=== PATIENT | male | born 1955 | race Caucasian/White ===

== ENCOUNTER → 2020-06-13 | Outpatient (CLI) | payer MEDICARE ==
--- NOTE | 2020-06-13 12:15 | CT ---
EXAMINATION TYPE: CT abdomen pelvis wo con DATE OF EXAM: 06/13/2020 COMPARISON: None HISTORY: midline abdominal/pelvic pain CT DLP: 1275.5 mGycm Examination of the solid and hollow viscera is limited given the lack of contrast. FINDINGS: LUNG BASES: No evidence for nodule. No evidence for infiltrate. LIVER/GB: The gallbladder is unremarkable. No space-occupying hepatic lesion. PANCREAS: No pancreatic mass identified. No inflammatory process seen. SPLEEN: No evidence for splenomegaly. No intrasplenic lesions seen. ADRENALS: No adrenal nodules identified. No evidence for thickening. KIDNEYS: No evidence for renal mass. No nephrolithiasis. No hydronephrosis. BOWEL: Appendix has a normal appearance. No evidence of bowel obstruction. No inflammatory process. Lymph nodes: No evidence for adenopathy greater than 1 cm. Abdominal aorta: Atheromatous changes seen. No evidence for aneurysm. Genital organs: No significant abnormality. Other: Degenerative changes lumbar spine. IMPRESSION: NO ACUTE PROCESS SEEN TO ACCOUNT FOR THE PATIENT'S SYMPTOMS.
== END | disposition home or self-care (01) ==
LOC: RADCTMAIN 09:08
PROVIDERS: ATTEND Family Medicine
DX: R10.9 Unspecified abdominal pain (principal)
CPT/HCPCS: 82565; 84520; 74176; 36415; Q9967

== ENCOUNTER → 2021-05-21 | Outpatient (CLI) | payer MEDICARE ==
--- NOTE | 2021-05-21 11:37 | XR ---
EXAMINATION TYPE: XR KUB DATE OF EXAM: 05/21/2021 COMPARISON: X-ray dated 03/12/[address] dated 06/13/2020 INDICATION: Left-sided abdominal/flank pain. TECHNIQUE: Single AP view of the abdomen and pelvis. FINDINGS: No definite radiopaque renal calculi however the kidneys are partially obscured by the overlying jose l gas and fecal material, more on the right side. 3 mm left pelvic radiopaque shadow which could repr esent a pelvic phlebolith, appreciated previously, however tiny ureteric calculus cannot be excluded. Extensive arterial atherosclerotic calcifications. Sternotomy wire sutures. Left upper abdominal surg ical clips. Degenerative changes of the lower thoracic and lumbar spine. Osteophytosis of the acetabu lum bilaterally. IMPRESSION: No definite radiopaque urinary calculi identified. Suspected left pelvic phlebolith rather than urete christoph calculus. Further CT assessment can be considered if clinically required. Other incidental findin gs as described above.
== END | disposition home or self-care (01) ==
LOC: RADXRMAIN 10:32
PROVIDERS: ATTEND Nurse Practitioner Family
DX: R10.9 Unspecified abdominal pain (principal)
CPT/HCPCS: 74018

== ENCOUNTER 2021-10-31 14:16 | Emergency (ER) | payer MEDICARE ==
[2021-10-31 14:44] VITALS: BP 126/45; PULSE 58; RESP 20; TEMP 98
--- NOTE | 2021-10-31 16:49 | XR ---
EXAMINATION TYPE: XR foot complete RT DATE OF EXAM: 10/31/2021 4:37 PM INDICATION: Patient age:Male; 66 years old; Reason for study: pain; COMPARISON: 03/04/2021 TECHNIQUE: The right foot was examined in the AP, oblique, and lateral projections. FINDINGS: Postsurgical changes to the right foot including amputation at the third digit metatarsal p halangeal joint. There appears to be interval development of bony callus involving the fifth metatars al with deformity of the fifth metatarsal. Atherosclerosis of the arterial vasculature. No definitive osseous erosion to suggest osteomyelitis. IMPRESSION: 1. Interval amputation of the third digit at the metatarsophalangeal phalangeal joint. 2. Deformity of the fifth metatarsal with callus formation could represent posttraumatic changes lizette mary jane interval surgical intervention. Correlate with surgical history.
== END 2021-10-31 18:56 | disposition left against medical advice (07) ==
LOC: EC 14:16
DX: Z53.21 Procedure and treatment not carried out due to patient leaving prior to being seen by health care provider (principal); M79.671 Pain in right foot
CPT/HCPCS: 99499

== ENCOUNTER 2021-11-01 09:33 | Emergency (ER) | payer MEDICARE ==
[2021-11-01 09:47] VITALS: BP 162/79; PULSE 56; RESP 20; TEMP 98
[2021-11-01] MEDS ORDERED: HYDROcodone/APAP 7.5-325MG 1 EACH TAB PO ONE (11:26)
[2021-11-01 11:43] LABS: Basophils % (A) 1 %; Eosinophils # (A) 0.5 k/uL (0-0.7); Eosinophils % (A) 7 %; HCT 37.5 % (39.0-53.0); HGB 12.7 gm/dL (13.0-17.5); Lymphocytes # (A) 1.2 k/uL (1.0-4.8); Lymphocytes % (A) 15 %; MCHC 33.8 g/dL (31.0-37.0); MCV 85.7 fL (80.0-100.0); Mean Platelet Volume 7.2; Monocytes # (A) 0.5 k/uL (0-1.0); Monocytes % (A) 6 %; Neutrophils # (A) 5.6 k/uL (1.3-7.7); Neutrophils % (A) 70 %; Platelet Count 227 k/uL (150-450); RBC 4.38 m/uL (4.30-5.90); RDW 13.3 % (11.5-15.5)
--- NOTE | 2021-11-01 11:45 | ED ---
Extremity Problem HPI - General Chief complaint: Extremity Problem,Nontraumatic Stated complaint: Recheck/Rt Foot Wound Time Seen by Provider: 11/01/21 11:08 Source: patient Mode of arrival: ambulatory Limitations: no limitations - History of Present Illness Initial comments: Patient is a 66-year-old male with a past medical history of coronary artery di sease, hypertension, hyperlipidemia, chronic kidney disease stage III, type 2 diabetes mellitus, An amputation of the left great toe and second toe who presents to the emergency department with a chief complaint of toe pain. 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 Patient states after the procedure the infection traveled to his right fifth toe. Patient was treated by the wound clinic. Patient states he is still having pain in his right fifth toe. Is not taking anything for pain. Patient got an x-ray of the right foot in the emergency department yesterday however left prior to evaluation. Reports numbness in his entire foot due to his diabetes. Patient also has concern with a blister on his right great toe. Patient saw his primary care last week for this wound who provided wound care. Denies fever, chills, and other concerns. - Related Data Home Medications Medication Instructions Recorded Confirmed Aspirin EC [Ecotrin Low Dose] 81 mg PO DAILY 03/04/21 03/04/21 Cholecalciferol [Vitamin D3 (25 25 mcg PO DAILY 03/04/21 03/04/21 Mcg = 1000 Iu)] Ferrous Sulfate [Iron (65 MG 325 mg PO DAILY 03/04/21 03/04/21 Elemental)] Gabapentin [Neurontin] 300 mg PO TID 03/04/21 03/04/21 Hydroxychloroquine Sulfate 200 mg PO BID 03/04/21 03/04/21 [Plaquenil] Levothyroxine Sodium [Synthroid] 100 mcg PO DAILY 03/04/21 03/04/21 Simvastatin [Zocor] 20 mg PO DAILY 03/04/21 03/04/21 Previous Rx's Medication Instructions Recorded Apixaban [Eliquis] 5 mg PO BID #60 tab 03/10/21 Acetaminophen Tab [Tylenol] 650 mg PO Q6HR PRN tab 03/12/21 Cefuroxime [Ceftin] 250 mg PO BID 7 Days #14 tab 03/12/21 Famotidine [Pepcid] 20 mg PO BID #60 tablet 03/12/21 Sennosides [Senokot] 8.6 mg PO BID PRN tab 03/12/21 metroNIDAZOLE [Flagyl] 500 mg PO TID 7 Days #20 tab 03/12/21 Fluticasone Nasal Ponder [Flonase 1 spray EA NOSTRIL DAILY #1 gm 03/13/21 Nasal Ponder] Insulin Detemir (Levemir) [Levemir] 15 unit SQ BID #9 ml 03/13/21 Loratadine [Claritin] 5 mg PO DAILY 14 Days #14 tab 03/13/21 Losartan [Cozaar] 25 mg PO DAILY #30 tab 03/13/21 Meclizine [Antivert] 12.5 mg PO TID PRN 30 Days #90 03/13/21 tablet amLODIPine [Norvasc] 5 mg PO BID 30 Days #60 tab 03/13/21 hydrALAZINE HCL [Apresoline] 100 mg PO TID 30 Days #90 tab 03/13/21 metFORMIN HCL [Glucophage] 500 mg PO BID 30 Days #60 tab 03/13/21 Acetaminophen Tab [Tylenol Tab] 500 mg PO Q4H PRN #30 tablet 05/12/21 Allergies Allergy/AdvReac Type Severity Reaction Status Date / Time Penicillins Allergy Unknown Verified 11/01/21 09:47 Childhood Review of Systems ROS Statement: Those systems with pertinent positive or pertinent negative responses have been documented in the HPI. ROS Other: All systems not noted in ROS Statement are negative. Past Medical History Past Medical History: Diabetes Mellitus, Hyperlipidemia, Hypertension, Thyroid Disorder History of Any Multi-Drug Resistant Organisms: None Reported Past Surgical History: Coronary Bypass/CABG, Heart Catheterization With Stent Additional Past Surgical History / Comment(s): left great and second toe removal. bilat carpal tunnel. neck fusion 5-6-7. triple bypass Date of Last Stent Placement:: 02/2002 Past Psychological History: No Psychological Hx Reported Smoking Status: Former smoker Past Alcohol Use History: None Reported Past Drug Use History: None Reported General Exam Limitations: no limitations General appearance: alert, in no apparent distress Head exam: Present: atraumatic, normocephalic, normal inspection Respiratory exam: Present: normal lung sounds bilaterally. Absent: respiratory distress, wheezes, rales, rhonchi, stridor Cardiovascular Exam: Present: regular rate, normal rhythm, normal heart sounds. Absent: systolic murmur, diastolic murmur, rubs, gallop, clicks Extremities exam: Present: other (right foot: amputated third digit. No ev erythema, swelling, or warmth of the right foot including the digits. No obvious deformity of fith digit. No pain with palpation. Neurovascularly intact. Great toe has 2 mm popped blister laterally without celluliits) Course Vital Signs 11/01/21 09:45 Temperature 98 F Pulse Rate 56 L Respiratory 20 Rate Blood Pressure 162/79 O2 Sat by Pulse 99 Oximetry Medical Decision Making - Medical Decision Making This is a 66-year-old male who presents with pain in his right fifth toe. On physical exam there is amputation of the right third toe. No everythema, swelling, or warmth of the right foot including the digits. No obvious deformity of the fifth digit. No pain with palpation. Neurovascularly intact. Great toe has 2 mm popped blister laterally without surrounding cellulitis. Laboratory studies obtained. There is no leukocytosis. Right foot x-ray from yesterday was reviewed which shows deformity of the fifth metatarsal with callus formation which could represent posttraumatic changes versus interval surgical intervention. Results discussed with patient. Patient instructed to see his primary care for referral to the wound clinic for further evaluation and managem ent. Wound on right great toe was cleaned thoroughly and new dressing was placed before discharge. Dr. Akhtar is my attending. - Lab Data Result diagrams: 11/01/21 11:32 11/01/21 11:32 Lab Results 11/01/21 11/01/21 Range/Units 11:32 11:32 WBC 8.0 (3.8-10.6) k/uL RBC 4.38 (4.30-5.90) m/uL Hgb 12.7 L (13.0-17.5) gm/dL Hct 37.5 L (39.0-53.0) % MCV 85.7 (80.0-100.0) fL MCH 29.0 (25.0-35.0) pg MCHC 33.8 (31.0-37.0) g/dL RDW 13.3 (11.5-15.5) % Plt Count 227 (150-450) k/uL MPV 7.2 Neutrophils % 70 % Lymphocytes % 15 % Monocytes % 6 % Eosinophils % 7 % Basophils % 1 % Neutrophils # 5.6 (1.3-7.7) k/uL Lymphocytes # 1.2 (1.0-4.8) k/uL Monocytes # 0.5 (0-1.0) k/uL Eosinophils # 0.5 (0-0.7) k/uL Basophils # 0.0 (0-0.2) k/uL Sodium 141 (137-145) mmol/L Potassium 4.9 (3.5-5.1) mmol/L Chloride 105 (98-107) mmol/L Carbon Dioxide 28 (22-30) mmol/L Anion Gap 8 mmol/L BUN 27 H (9-20) mg/dL Creatinine 1.51 H (0.66-1.25) mg/dL Est GFR (CKD-EPI)AfAm 55 (>60 ml/min/1.73 sqM) Est GFR (CKD-EPI)NonAf 48 (>60 ml/min/1.73 sqM) Glucose 103 H (74-99) mg/dL Calcium 8.6 (8.4-10.2) mg/dL Total Bilirubin 0.6 (0.2-1.3) mg/dL AST 28 (17-59) U/L ALT 17 (4-49) U/L Alkaline Phosphatase 64 (38-126) U/L Total Protein 6.1 L (6.3-8.2) g/dL Albumin 3.9 (3.5-5.0) g/dL Disposition Clinical Impression: Toe pain, right, Amputated toe of right foot Disposition: HOME SELF-CARE Condition: Good Instructions (If sedation given, give patient instructions): Acute Wound Care (ED) Additional Instructions: Follow-up with primary care provider who can refer you to the wound clinic for further evaluation and management of pain in right fifth toe. Keep great toe wound clean and dry. Take Tylenol for pain. Return to the emergency department if you experience new, concerning, or worsening symptoms. Is patient prescribed a controlled substance at d/c from ED?: No Referrals: Gregorio Palomino MD [Primary Care Provider] - 1-2 days Time of Disposition: 12:06
[2021-11-01 12:04] LABS: Albumin 3.9 g/dL (3.5-5.0); Calcium 8.6 mg/dL (8.4-10.2); Potassium 4.9 mmol/L (3.5-5.1); Total Bilirubin 0.6 mg/dL (0.2-1.3); Total Protein 6.1 g/dL (6.3-8.2)
[2021-11-01] MEDS ORDERED: MUPIROCIN 2% OINT 22 GM TUBE TOPICAL SCH (12:30)
== END 2021-11-01 13:26 | disposition home or self-care (01) ==
LOC: EC 09:33
DX: M79.674 Pain in right toe(s) (principal); I12.0 Hypertensive chronic kidney disease with stage 5 chronic kidney disease or end stage renal disease; E11.22 Type 2 diabetes mellitus with diabetic chronic kidney disease; N18.30 Chronic kidney disease, stage 3 unspecified; I25.10 Atherosclerotic heart disease of native coronary artery without angina pectoris; E07.89 Other specified disorders of thyroid; Z89.421 Acquired absence of other right toe(s); Z79.82 Long term (current) use of aspirin; Z79.890 Hormone replacement therapy; Z79.4 Long term (current) use of insulin; Z79.84 Long term (current) use of oral hypoglycemic drugs; Z79.899 Other long term (current) drug therapy; Z88.0 Allergy status to penicillin; Z95.1 Presence of aortocoronary bypass graft; Z87.891 Personal history of nicotine dependence
CPT/HCPCS: 36415; 80053; 85025; 99283

== ENCOUNTER → 2022-06-01 | Outpatient (CLI) | payer MEDICARE ==
[2022-06-01 11:13] LABS: Albumin 3.3 g/dL (3.5-5.0)
[2022-06-01 21:18] LABS: Total Volume 24 Hour,Urine 2150 mL
== END | disposition home or self-care (01) ==
LOC: LABWHC1 09:29
PROVIDERS: ATTEND Family Medicine
DX: N18.30 Chronic kidney disease, stage 3 unspecified (principal)
CPT/HCPCS: 36415; 81050; 82040; 82575; 84156

== ENCOUNTER → 2022-06-01 | Outpatient (CLI) | payer SELFPAY ==
--- NOTE | 2022-06-01 13:52 | US ---
EXAMINATION TYPE: US kidneys/renal and bladder DATE OF EXAM: 06/01/2022 COMPARISON: CT CLINICAL HISTORY: N18.30 CHR KIDNEY DISEASE. CKD EXAM MEASUREMENTS: Right Kidney: 10.5 x 5.5 x 5.5 cm Left Kidney: 11.9 x 6.5 x 6.3 cm Right Kidney: No hydronephrosis or masses seen Left Kidney: No hydronephrosis or masses seen Bladder: Not distended, pt not given prep to fill bladder Bilateral Jets seen: No There is no evidence for hydronephrosis at this point in time. No nephrolithiasis is seen. No debbie s are identified. The urinary bladder is anechoic. Bilateral ureteral jets are seen. IMPRESSION: No discrete abnormality seen
== END | disposition home or self-care (01) ==
LOC: RADUSWWP 12:29
PROVIDERS: ATTEND Family Medicine
DX: N18.30 Chronic kidney disease, stage 3 unspecified (principal)
CPT/HCPCS: 76770

== ENCOUNTER 2023-01-26 06:52 | Day surgery (SDC) | payer MEDICARE ==
[2023-01-22 09:26] VITALS: BMI 37.3
[2023-01-26] MEDS: LACTATED RINGERS 1,000 ML IV SCH ×2 (07:20→08:16)
[2023-01-26 07:25] VITALS: TEMP 97
[2023-01-26 07:34] LABS: Glucose,Whole Blood 212 mg/dL (70-110)
[2023-01-26] MEDS ORDERED: LIDOCAINE 1% INJ 10MG/ML (20 ML MDV) ONE (08:17)
[2023-01-26] MEDS ORDERED: PROPOFOL 10 MG/ML 20 ML VIAL IV ONE (08:17)
--- NOTE | 2023-01-26 08:48 | P.PCN ---
Date of Procedure: 01/26/23 Procedure(s) Performed: Brief history: Patient is a pleasant 67-year-old white male scheduled for an elective upper endoscopy as well as colonoscopy as a part of evaluation of iron deficiency anemia and intermittent rectal bleeding Procedure performed: Esophagogastroduodenoscopy with biopsy Colonoscopy with biopsy Preoperative diagnosis: Iron deficiency anemia Intermittent rectal bleeding Anesthesia: [facility] [place] Procedure: After informed consent was obtained from the patient was brought into the endoscopy unit and IV sedation was administered by anesthesia under continuous monitoring. Initially upper endoscopy was done. The Olympus GF 160 video endoscope was inserted inserted into the mouth and esophagus intubated without any difficulty and was gradually advanced into the stomach and duodenum and carefully examined. The bulb and second part of the duodenum appeared normal. There was evidence of mild duodenitis in the duodenal bulb, biopsies were done from the second part of the duodenum to rule out celiac disease. The scope was then withdrawn into the stomach adequately insufflated with air and upon careful examination the antrum had mild gastritis and biopsies were done from this area. Mucosa of the body, cardia and fundus appeared normal. The scope was then withdrawn into the esophagus. There was a short segment of Wood's esophagus extending 3 mm proximal to the GE junction and this was biopsied. The GE junction was located at 40 cm to the incisors. It appeared regular with no erythema erosions or ulcerations. Rest of the esophagus appeared normal. Patient tolerated the procedure well. At this time the patient continued to remain sedation. Initial digital rectal examination was normal. Olympus CF 160 video colonoscope was then inserted into the rectum and gradually advanced to the cecum without any difficulty. Careful examination was performed as the scope was gradually being withdrawn. The prep was excellent. The cecum, ascending colon and mucosal erythema and friability with granularity consistent with colitis and biopsies were done from this area. Mucosa, transverse colon, descending colon, normal. Once again there was mucosal erythema friability and granularity involving the sigmoid colon and rectum appeared very 5 cm from the anal verge and multiple biopsies were done from this area.. Retroflexion was performed in the rectum and no lesions were noted. Patient tolerated the procedure well. Impression: 1. Upper endoscopy revealed mild antral gastritis, duodenitis and short segment Wood's esophagus 2. Colonoscopy revealed mild mucosal erythema with friability, blood granularity and spontaneous oozing involving the cecum, ascending colon and sigmoid colon and rectum all consistent with chronic colitis colitis status post multiple biopsies to evaluate for ulcerative colitis Recommendations: Findings of this examination were discussed with the patient as well as his family. He was advised to follow with the biopsy results. He will be seen in office in 2 weeks.
[2023-01-26 09:27] VITALS: BP 126/62; PULSE 57; RESP 16
== END 2023-01-26 09:31 | disposition home or self-care (01) ==
LOC: ORWHC2ENDO 06:52
PROVIDERS: ATTEND Internal Medicine Gastroenterology
DX: K29.50 Unspecified chronic gastritis without bleeding (principal); D50.9 Iron deficiency anemia, unspecified; K62.5 Hemorrhage of anus and rectum; K29.80 Duodenitis without bleeding; K22.70 Barrett's esophagus without dysplasia; K52.9 Noninfective gastroenteritis and colitis, unspecified; I10 Essential (primary) hypertension; I25.10 Atherosclerotic heart disease of native coronary artery without angina pectoris; E78.5 Hyperlipidemia, unspecified; E11.9 Type 2 diabetes mellitus without complications; E07.9 Disorder of thyroid, unspecified; G40.909 Epilepsy, unspecified, not intractable, without status epilepticus; Z79.899 Other long term (current) drug therapy; Z79.82 Long term (current) use of aspirin; Z88.2 Allergy status to sulfonamides; Z79.890 Hormone replacement therapy
CPT/HCPCS: 88305; 88313; 45380; 43239; J2001; J2704

== ENCOUNTER 2023-03-17 10:44 | Inpatient (IN) | payer MEDICARE ==
[2023-03-17] MEDS ORDERED: VANCOMYCIN IV PER PHARMACY 1 EACH MISC MISCELLANE PRN (11:23)
--- NOTE | 2023-03-17 11:46 | ED ---
Extremity Problem HPI - General Chief complaint: Extremity Problem,Nontraumatic Stated complaint: L Foot Wood Time Seen by Provider: 03/17/23 11:13 Source: patient, RN notes reviewed Mode of arrival: ambulatory Limitations: no limitations - History of Present Illness Initial comments: 67-year-old male presents emergency department chief complaint of left foot infection. Patient was sent in by wound center Dr. Garcia. Patient states she has had a prior toe amputation states that there is a sore underneath the ball of his foot with a possible bone exposure. Patient states he is not on any current antibiotics he was sent in for IV antibiotic treatment and further evaluation. He is a known diabetic. - Related Data Home Medications Medication Instructions Recorded Confirmed Aspirin EC [Ecotrin Low Dose] 81 mg PO DAILY 03/04/21 03/17/23 Ferrous Sulfate [Iron (65 MG 325 mg PO DAILY 03/04/21 03/17/23 Elemental)] Gabapentin [Neurontin] 300 mg PO TID 03/04/21 03/17/23 Hydroxychloroquine Sulfate 200 mg PO BID 03/04/21 03/17/23 [Plaquenil] Levothyroxine Sodium [Synthroid] 100 mcg PO DAILY 03/04/21 03/17/23 Simvastatin [Zocor] 20 mg PO DAILY 03/04/21 03/17/23 Insulin Aspart Prot/Insuln Asp 70 unit SQ HS 01/22/23 03/17/23 [Novolog MIX 70-30 Flexpen] Warfarin [Coumadin] 7.5 mg PO SUTUWETHSA 01/22/23 03/17/23 carvediloL [Coreg] 6.25 mg PO BID 01/22/23 03/17/23 Acetaminophen Tab [Tylenol Tab] 500 - 1,000 mg PO Q4H PRN 03/17/23 03/17/23 Balsalazide Disodium [Colazal] 2,250 mg PO TID 03/17/23 03/17/23 Loratadine [Claritin] 10 mg PO DAILY 03/17/23 03/17/23 Magnesium Oxide [Magox 400] 400 mg PO DAILY 03/17/23 03/17/23 Testosterone Cypionate 200 mg IM Q28D 03/17/23 03/17/23 [Depo-Testosterone] Warfarin [Coumadin] 10 mg PO MOFR 03/17/23 03/17/23 Previous Rx's Medication Instructions Recorded Famotidine [Pepcid] 20 mg PO BID #60 tablet 03/12/21 Sennosides [Senokot] 8.6 mg PO BID PRN tab 03/12/21 Losartan [Cozaar] 25 mg PO DAILY #30 tab 03/13/21 Meclizine [Antivert] 12.5 mg PO TID PRN 30 Days #90 03/13/21 tablet amLODIPine [Norvasc] 5 mg PO BID 30 Days #60 tab 03/13/21 Allergies Allergy/AdvReac Type Severity Reaction Status Date / Time Penicillins Allergy Unknown Verified 03/17/23 12:48 Childhood Review of Systems ROS Statement: Those systems with pertinent positive or pertinent negative responses have been documented in the HPI. ROS Other: All systems not noted in ROS Statement are negative. Past Medical History Past Medical History: Diabetes Mellitus, Hyperlipidemia, Hypertension, Thyroid Disorder History of Any Multi-Drug Resistant Organisms: None Reported Past Surgical History: Coronary Bypass/CABG, Heart Catheterization With Stent Additional Past Surgical History / Comment(s): left great and second toe removal. bilat carpal tunnel. neck fusion 5-6-7. triple bypass Past Anesthesia/Blood Transfusion Reactions: No Reported Reaction Additional Past Anesthesia/Blood Transfusion Reaction / Comment(s): no blood transfusion Date of Last Stent Placement:: 02/2002 Past Psychological History: No Psychological Hx Reported Smoking Status: Former smoker Past Alcohol Use History: None Reported Past Drug Use History: None Reported General Exam Limitations: no limitations General appearance: alert, in no apparent distress Head exam: Present: atraumatic, normocephalic, normal inspection Neck exam: Present: normal inspection, full ROM. Absent: tenderness, meningismus, lymphadenopathy Respiratory exam: Present: normal lung sounds bilaterally. Absent: respiratory distress, wheezes, rales, rhonchi, stridor Cardiovascular Exam: Present: regular rate, normal rhythm, normal heart sounds. Absent: systolic murmur, diastolic murmur, rubs, gallop, clicks Extremities exam: Present: other (Left foot there is a prior amputation there is an open sore just proximal to where first digit was, there is erythema there is a lateral foot ulceration also.) Course Vital Signs 03/17/23 10:47 Temperature 98.5 F Pulse Rate 65 Respiratory 18 Rate Blood Pressure 171/93 O2 Sat by Pulse 100 Oximetry Medical Decision Making - Medical Decision Making Was pt. sent in by a medical professional or institution (ALESSIA Montemayor, [employer], urgent care, hospital, or senior care...) When possible be specific @ -Wound care physician Did you speak to anyone other than the patient for history (EMS, parent, family, police, friend...)? What history was obtained from this source @ -No Did you review nursing and triage notes (agree or disagree)? Why? @ -I reviewed and agree with nursing and triage notes Were old charts reviewed (outside hosp., previous admission, EMS record, old EKG, old radiological studies, urgent care reports/EKG's, senior care records)? Report findings @ -No old charts were reviewed Differential Diagnosis (chest pain, altered mental status, abdominal pain women, abdominal pain men, vaginal bleeding, weakness, fever, dyspnea, syncope, headache, dizziness, GI bleed, back pain, seizure, CVA, palpatations, mental health, musculoskeletal)? @ -Diabetic foot ulcer, cellulitis, osteomyelitis EKG interpreted by me (3pts min.). @ -None X-rays interpreted by me (1pt min.). @ -[X-ray of the foot showing postsurgical changes no evidence of osteomyelitis CT interpreted by me (1pt min.). @ -None done U/S interpreted by me (1pt. min.). @ -None done What testing was considered but not performed or refused? (CT, X-rays, U/S, labs)? Why? @ -None What meds were considered but not given or refused? Why? @ -None Did you discuss the management of the patient with other professionals (professionals i.e. ALESSIA Montemayor, [employer] WORK[employer], lab, RT, psych nurse, social media campaign manager, neonatal intensive care nurse, teacher, public health service officer, senior case manager)? Give summary @ -[EMH for admission with consult to wound care and infectious disease Was smoking cessation discussed for >3mins.? @ -No Was critical care preformed (if so, how long)? @ -No Were there social determinants of health that impacted care today? How? (Homelessness, low income, unemployed, alcoholism, drug addiction, transportation, low edu. Level, literacy, decrease access to med. care, detention, rehab)? @ -No Was there de-escalation of care discussed even if they declined (Discuss DNR or withdrawal of care, Hospice)? DNR status @ -No What co-morbidities impacted this encounter? (DM, HTN, Smoking, COPD, CAD, Cancer, CVA, ARF, Chemo, Hep., AIDS, mental health diagnosis, sleep apnea, morbid obesity)? @ -None Was patient admitted / discharged? Hospital course, mention meds given and route, prescriptions, significant lab abnormalities, going to OR and other pertinent info. @ -[Admitted patient be admitted for diabetic foot ulcer patient was sent in by wound center. Patient started on IV antibiotics there is no acute changes on x- ray. Undiagnosed new problem with uncertain prognosis? @ -No Drug Therapy requiring intensive monitoring for toxicity (Heparin, Nitro, Insulin, Cardizem)? @ -No Were any procedures done? @ -No Diagnosis/symptom? @ -Diabetic foot ulcer t Acute, or Chronic, or Acute on Chronic? @ -Acute Uncomplicated (without systemic symptoms) or Complicated (systemic symptoms)? @ -[Uncomplicated Side effects of treatment? @ -No Exacerbation, Progression, or Severe Exacerbation? @ -No Poses a threat to life or bodily function? How? (Chest pain, [place], [place], pneumonia, PE, COPD, DKA, ARF, appy, cholecystitis, CVA, Diverticulitis, Homicidal, Suicidal, threat to staff... and all critical care pts) @ -Yes low likelihood, infection - Lab Data Result diagrams: 03/17/23 11:44 03/17/23 11:44 Lab Results 03/17/23 03/17/23 03/17/23 Range/Units 11:44 11:44 11:44 WBC 11.3 H (3.8-10.6) k/uL RBC 4.50 (4.30-5.90) m/uL Hgb 13.5 (13.0-17.5) gm/dL Hct 40.1 (39.0-53.0) % MCV 89.2 (80.0-100.0) fL MCH 29.9 (25.0-35.0) pg MCHC 33.6 (31.0-37.0) g/dL RDW 13.2 (11.5-15.5) % Plt Count 229 (150-450) k/uL MPV 8.6 Neutrophils % 85 % Lymphocytes % 5 % Monocytes % 5 % Eosinophils % 3 % Basophils % 1 % Neutrophils # 9.7 H (1.3-7.7) k/uL Lymphocytes # 0.6 L (1.0-4.8) k/uL Monocytes # 0.6 (0-1.0) k/uL Eosinophils # 0.3 (0-0.7) k/uL Basophils # 0.1 (0-0.2) k/uL Sodium 134 L (137-145) mmol/L Potassium 4.1 (3.5-5.1) mmol/L Chloride 99 (98-107) mmol/L Carbon Dioxide 25 (22-30) mmol/L Anion Gap 10 mmol/L BUN 52 H (9-20) mg/dL Creatinine 2.03 H (0.66-1.25) mg/dL Est GFR (CKD-EPI)AfAm 38 (>60 ml/min/1.73 sqM) Est GFR (CKD-EPI)NonAf 33 (>60 ml/min/1.73 sqM) Glucose 296 H (74-99) mg/dL Plasma Lactic Acid Brigido 1.5 (0.7-2.0) mmol/L Calcium 8.6 (8.4-10.2) mg/dL Total Bilirubin 1.4 H (0.2-1.3) mg/dL AST 30 (17-59) U/L ALT 24 (4-49) U/L Alkaline Phosphatase 66 (38-126) U/L C-Reactive Protein 4.5 H (<1.0) mg/dL Total Protein 5.7 L (6.3-8.2) g/dL Albumin 3.5 (3.5-5.0) g/dL Disposition Clinical Impression: Diabetic foot ulcer Disposition: ADMITTED IP TO THIS [facility] Condition: Fair Time of Disposition: 12:02
[2023-03-17] MEDS: VANCOMYCIN 1,750 MG in SODIUM CHLORIDE 0.9% 500 ML 500 ML IVPB STA (11:56)
[2023-03-17 12:02] LABS: Basophils # (A) 0.1 k/uL (0-0.2); Basophils % (A) 1 %; Eosinophils # (A) 0.3 k/uL (0-0.7); Eosinophils % (A) 3 %; HCT 40.1 % (39.0-53.0); HGB 13.5 gm/dL (13.0-17.5); Lymphocytes # (A) 0.6 k/uL (1.0-4.8); Lymphocytes % (A) 5 %; MCH 29.9 pg (25.0-35.0); MCHC 33.6 g/dL (31.0-37.0); MCV 89.2 fL (80.0-100.0); Mean Platelet Volume 8.6; Monocytes # (A) 0.6 k/uL (0-1.0); Monocytes % (A) 5 %; Neutrophils # (A) 9.7 k/uL (1.3-7.7); Neutrophils % (A) 85 %; Platelet Count 229 k/uL (150-450); RDW 13.2 % (11.5-15.5); WBC 11.3 k/uL (3.8-10.6)
--- NOTE | 2023-03-17 12:05 | XR ---
EXAMINATION TYPE: XR foot complete 3 views LT DATE OF EXAM: 03/17/2023 Comparison: None Clinical History: 67-year-old male infection at great toe Findings: Prior great toe amputation. Old healed fracture deformity third metatarsal neck. Old resection head a nd neck of the second metatarsal. There is a at the great toe amputation stump. No safia lytic destru ction is clearly identified this time. Vascular calcifications are present throughout. Dorsal degener ative spurring in the mid foot. No acute fracture or dislocation. Impression: Previous great toe amputation with a a soft tissue wound at the amputation stump. No overt findings o f a contiguous osteomyelitis/bony destruction at this time. If persistent clinical concern, radiograp hic follow-up or MRI can be performed.
[2023-03-17 12:17] LABS: ALT 24 U/L (4-49); AST 30 U/L (17-59); African American GFR (CKD) 38 (>60 ml/min/1.73 sqM); Alkaline Phosphatase 66 U/L (38-126); Non-African American GFR(CKD) 33 (>60 ml/min/1.73 sqM)
[2023-03-17 12:29] LABS: Albumin 3.5 g/dL (3.5-5.0); Anion Gap 10 mmol/L; Blood Urea Nitrogen 52 mg/dL (9-20); C Reactive Protein 4.5 mg/dL (<1.0); Calcium 8.6 mg/dL (8.4-10.2); Carbon Dioxide 25 mmol/L (22-30); Chloride 99 mmol/L (98-107); Glucose 296 mg/dL (74-99); Potassium 4.1 mmol/L (3.5-5.1); Sodium 134 mmol/L (137-145); Total Bilirubin 1.4 mg/dL (0.2-1.3); Total Protein 5.7 g/dL (6.3-8.2)
[2023-03-17] MEDS ORDERED: ACETAMINOPHEN TAB 325 MG TAB PO PRN (12:38)
[2023-03-17] MEDS ORDERED: ONDANSETRON 4 MG/2 ML VIAL IVP PRN (12:38)
[2023-03-17] MEDS ORDERED: NALOXONE 0.4 MG/ML 1 ML VIAL IV PRN (12:38)
[2023-03-17 17:12] LABS: Glucose,Whole Blood 311 mg/dL (70-110)
[2023-03-17 19:31] LABS: Erythrocyte Sedimentation Rate 29 mm/Hr (0-20)
[2023-03-17] MEDS ORDERED: SENNOSIDES 8.6 MG TAB PO PRN (23:28)
--- NOTE | 2023-03-17 23:59 | P.HPIM ---
History of Present Illness H&P Date: 03/17/23 Chief Complaint: Foot ulcer Patient is a 67-year-old male with a past medical history of coronary artery disease status post CABG, and stent placement, hypertension, diabetes type 2 insulin-dependent, hypothyroidism and prior history of compression of the right middle toe presents to ER with the complaints of left foot ulcer below the great toe. Patient does have history of peripheral neuropathy. Patient denies any purulent discharge. No fever no chills. No chest pain or shortness of breath. No nausea vomiting abdominal pain or diarrhea X-ray of the foot showed previous great toe amputation with soft tissue wound at the amputation stump. No overt findings of contiguous osteomyelitis or bony destruction at this time. Laboratory data showed WBC 11.3, hemoglobin 13.5 and platelets 229 Sodium 134 potassium 4.1 chloride 99 bicarb is 25 BUN 52 and creatinine 2.03 Blood sugar 296 and CRP 4.5. Review of Systems Constitutional: Patient denies any fever or chills . no Generalized weakness. Abdomen: Patient denied any nausea or vomiting or abd. pain Cardiovascular: Patient denies any chest pain or short of breath no palpitations. Respiratory: patient denied any cough . no sputum production. No shortness of breath Neurologic: Patient denied any numbness or tingling or headache. Musculoskeletal: Patient denies any complaints of joint swelling or deformity. Left foot ulcer Skin: Negative Psychiatric: Negative Endocrine: No heat or cold intolerance. No recent weight gain. Genitourinary: No dysuria or hematuria. All other 14 point ROS negative except the above Past Medical History Past Medical History: Diabetes Mellitus, Hyperlipidemia, Hypertension, Thyroid Disorder History of Any Multi-Drug Resistant Organisms: None Reported Past Surgical History: Coronary Bypass/CABG, Heart Catheterization With Stent Additional Past Surgical History / Comment(s): left great and second toe removal. bilat carpal tunnel. neck fusion 5-6-7. triple bypass Past Anesthesia/Blood Transfusion Reactions: No Reported Reaction Additional Past Anesthesia/Blood Transfusion Reaction / Comment(s): no blood transfusion Date of Last Stent Placement:: 02/2002 Past Psychological History: No Psychological Hx Reported Smoking Status: Former smoker Past Alcohol Use History: None Reported Past Drug Use History: None Reported Medications and Allergies Home Medications Medication Instructions Recorded Confirmed Type Aspirin EC [Ecotrin Low Dose] 81 mg PO DAILY 03/04/21 03/17/23 History Ferrous Sulfate [Iron (65 MG 325 mg PO DAILY 03/04/21 03/17/23 History Elemental)] Gabapentin [Neurontin] 300 mg PO TID 03/04/21 03/17/23 History Hydroxychloroquine Sulfate 200 mg PO BID 03/04/21 03/17/23 History [Plaquenil] Levothyroxine Sodium [Synthroid] 100 mcg PO DAILY 03/04/21 03/17/23 History Simvastatin [Zocor] 20 mg PO DAILY 03/04/21 03/17/23 History Famotidine [Pepcid] 20 mg PO BID #60 tablet 03/12/21 03/17/23 Rx Sennosides [Senokot] 8.6 mg PO BID PRN tab 03/12/21 03/17/23 Rx Losartan [Cozaar] 25 mg PO DAILY #30 tab 03/13/21 03/17/23 Rx Meclizine [Antivert] 12.5 mg PO TID PRN 30 Days #90 03/13/21 03/17/23 Rx tablet amLODIPine [Norvasc] 5 mg PO BID 30 Days #60 tab 03/13/21 03/17/23 Rx Insulin Aspart Prot/Insuln Asp 70 unit SQ HS 01/22/23 03/17/23 History [Novolog MIX 70-30 Flexpen] Warfarin [Coumadin] 7.5 mg PO SUTUWETHSA 01/22/23 03/17/23 History carvediloL [Coreg] 6.25 mg PO BID 01/22/23 03/17/23 History Acetaminophen Tab [Tylenol Tab] 500 - 1,000 mg PO Q4H PRN 03/17/23 03/17/23 History Balsalazide Disodium [Colazal] 2,250 mg PO TID 03/17/23 03/17/23 History Loratadine [Claritin] 10 mg PO DAILY 03/17/23 03/17/23 History Magnesium Oxide [Magox 400] 400 mg PO DAILY 03/17/23 03/17/23 History Testosterone Cypionate 200 mg IM Q28D 03/17/23 03/17/23 History [Depo-Testosterone] Warfarin [Coumadin] 10 mg PO MOFR 03/17/23 03/17/23 History Allergies Allergy/AdvReac Type Severity Reaction Status Date / Time Penicillins Allergy Unknown Verified 03/17/23 12:48 Childhood Physical Exam Vitals: Vital Signs Temp Pulse Resp BP Pulse Ox 03/17/23 10:47 98.5 F 65 18 171/93 100 Intake and Output 03/16/23 03/17/23 03/17/23 22:59 06:59 14:59 Other: Weight 111.13 kg PHYSICAL EXAMINATION: Patient is lying in the bed comfortably, no acute distress, awake alert and oriented.. HEENT: Normocephalic. Neck is supple. Pupils reactive. Nostrils clear. Oral cavity is moist. Neck reveals no JVD, carotid bruits, or thyromegaly. CHEST EXAMINATION: Trachea is central. Symmetrical expansion. Lung delgado clear to auscultation and percussion. CARDIAC: Normal S1, S2 with no gallops. No murmurs ABDOMEN: Soft. Bowel sounds present. Nontender. No organomegaly. No abdominal bruits. Extremities: reveal no edema. No clubbing or cyanosis Neurologically awake, alert, oriented x3 with well-coordinated movements. No focal deficits noted Skin: No rash or skin lesions. Left foot ulcer on the plantar aspect of the great toe amputation site. Granulation tissue with surrounding skin slough. Psychiatric: Coperative. Nonsuicidal, Musculoskeletal: No joint swelling or deformity. Normal range of motion. Results CBC & Chem 7: 03/17/23 11:44 03/17/23 11:44 Labs: Abnormal Lab Results - Last 24 Hours (Table) 03/17/23 03/17/23 Range/Units 11:44 11:44 WBC 11.3 H (3.8-10.6) k/uL Neutrophils # 9.7 H (1.3-7.7) k/uL Lymphocytes # 0.6 L (1.0-4.8) k/uL Sodium 134 L (137-145) mmol/L BUN 52 H (9-20) mg/dL Creatinine 2.03 H (0.66-1.25) mg/dL Glucose 296 H (74-99) mg/dL Total Bilirubin 1.4 H (0.2-1.3) mg/dL C-Reactive Protein 4.5 H (<1.0) mg/dL Total Protein 5.7 L (6.3-8.2) g/dL Thrombosis Risk Factor Assmnt - DVT/VTE Prophylaxis DVT/VTE Prophylaxis: Pharmacologic Prophylaxis ordered Assessment and Plan Assessment: Left diabetic foot ulcer on the plantar surface at the amputation of the great toe site Acute kidney injury with prior history of CKD stage III. Baseline creatinine level 1.3-1.8 creatinine on admission 2.03. 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 Coronary artery disease with history of CABG and stent placement Long-term anticoagulation with Coumadin etiology not known. History of ulcerative colitis Hypothyroidism Medication noncompliance History of constipation Hyperlipidemia GI prophylaxis Plan: Patient will be continued on IV hydration with normal saline. Started on antibiotics vancomycin. Wound care and ID consult for further evaluation. Start back on home blood pressure medications and titrate as needed. Continue with insulin regimen and sliding scale was added. Current home medications Follow-up culture reports. Continue with pain management. Prognosis is guarded. Time with Patient: Greater than 30
[2023-03-18] MEDS: carvediloL 6.25 MG TAB PO SCH (01:08)
[2023-03-18] MEDS: amLODIPine 5 MG TAB PO SCH (01:08)
[2023-03-18] MEDS: INSULN ASP PRT/INSULIN ASPART 100 UNIT/ML 10 ML VIAL SQ SCH ×2 (01:56→19:49)
[2023-03-18 02:01] LABS: Prothrombin Time 129.5 sec (10.0-12.5)
[2023-03-18 02:04] LABS: INR >10.0 (<1.2)
[2023-03-18] MEDS: WARFARIN 7.5 MG TAB PO SCH (04:28)
[2023-03-18] MEDS: PHYTONADIONE 5 MG in SODIUM CHLORIDE 0.9% 50 ML IVPB STA (04:52)
[2023-03-18 06:32] LABS: African American GFR (CKD) 38 (>60 ml/min/1.73 sqM); Anion Gap 5 mmol/L; Blood Urea Nitrogen 46 mg/dL (9-20); Calcium 8.5 mg/dL (8.4-10.2); Carbon Dioxide 32 mmol/L (22-30); Chloride 100 mmol/L (98-107); Non-African American GFR(CKD) 33 (>60 ml/min/1.73 sqM); Potassium 3.6 mmol/L (3.5-5.1); Sodium 137 mmol/L (137-145)
[2023-03-18 06:43] LABS: Glucose 36 mg/dL (74-99)
[2023-03-18 06:47] LABS: Glucose,Whole Blood 42 mg/dL (70-110)
[2023-03-18] MEDS: INSULIN ASPART (NovoLOG) 100 UNIT/ML VIAL SQ SCH (06:51)
[2023-03-18] MEDS: DEXTROSE 50% SYRINGE 50 ML IVP PRN (06:52)
[2023-03-18 07:10] LABS: Glucose,Whole Blood 105 mg/dL (70-110)
[2023-03-18] MEDS ORDERED: VANCOMYCIN 1,750 MG in SODIUM CHLORIDE 0.9% 500 ML 500 ML IVPB SCH (08:00)
[2023-03-18] MEDS: GABAPENTIN 300 MG CAP PO SCH (08:16)
[2023-03-18] MEDS: ATORVASTATIN 10 MG TAB PO SCH (08:16)
[2023-03-18] MEDS: FAMOTIDINE 20 MG TAB PO SCH (08:16)
[2023-03-18] MEDS: BALSALAZIDE DISODIUM 750 MG CAPSULE PO SCH (08:16)
[2023-03-18] MEDS: VANCOMYCIN 1,750 MG in SODIUM CHLORIDE 0.9% 500 ML 500 ML IVPB SCH (08:16)
[2023-03-18] MEDS: LEVOTHYROXINE 100 MCG TAB PO SCH (08:16)
[2023-03-18] MEDS: HYDROXYCHLOROQUINE SULFATE 200 MG TAB PO SCH (08:17)
[2023-03-18 09:31] LABS: HCT 35.8 % (39.6-50.0); MCH 29.3 pg (27.0-32.0); MCHC 33.5 g/dL (32.0-37.0); MCV 87.5 FL (80.0-97.0); Mean Platelet Volume 12.1 FL (9.5-12.2); NRBC Per 100 WBC 0 X 10*3/uL (0.00-0.01); Platelet Count 194 X 10*3/uL (140-440); RBC 4.09 X 10*6/uL (4.40-5.60); RDW 12.6 % (11.5-14.5); WBC 10.79 X 10*3/uL (4.50-10.00)
[2023-03-18 09:32] LABS: Basophils # (A) 0.04 X 10*3/uL (0.00-0.10); Basophils % (A) 0.4 %; Eosinophils # (A) 0.39 X 10*3/uL (0.04-0.35); Eosinophils % (A) 3.6 %; Lymphocytes # (A) 0.63 X 10*3/uL (0.90-5.00); Lymphocytes % (A) 5.8 %; Monocytes # (A) 0.94 X 10*3/uL (0.20-1.00); Monocytes % (A) 8.7 %; Neutrophils % (A) 80.7 %
[2023-03-18 09:52] LABS: INR 6.05 sec (0.93-1.11); Prothrombin Time 58.1 sec (9.9-11.9)
[2023-03-18 11:18] LABS: Glucose,Whole Blood 28 mg/dL (70-110)
[2023-03-18] MEDS: CEFEPIME 2 GM in SODIUM CHLORIDE 0.9% 100 ML IVPB SCH (11:27)
[2023-03-18 11:40] LABS: Glucose,Whole Blood 117 mg/dL (70-110)
[2023-03-18] MEDS: DEXTROSE 5%-0.9% NACL 1,000 ML IV SCH (12:10)
[2023-03-18 13:07] LABS: Glucose,Whole Blood 78 mg/dL (70-110)
[2023-03-18 13:58] LABS: Glucose,Whole Blood 69 mg/dL (70-110)
[2023-03-18] MEDS: HYDROcodone/APAP 5-325MG 1 EACH TAB PO PRN (15:28)
[2023-03-18 15:44] LABS: Glucose,Whole Blood 123 mg/dL (70-110)
[2023-03-18 16:55] LABS: Glucose,Whole Blood 99 mg/dL (70-110)
[2023-03-18] MEDS: WARFARIN 0.5 MG TAB PO ONE (18:21)
--- NOTE | 2023-03-18 18:47 | CT ---
EXAMINATION TYPE: CT brain wo con DATE OF EXAM: 03/18/2023 COMPARISON: 05/12/2021 INDICATION: Rule out brain bleed, high INR, bloody sclera of rt eye. DLP: 1169.4 mGycm, Automated exposure control for dose reduction was used. CONTRAST: None CT of the brain is performed utilizing 3 mm thick sections through the posterior fossa and 3 mm thick sections through the remaining calvarium. Study is performed within 24 hours of arrival to the hosp [facility]. No abnormal hyperdensity is present to suggest an acute intracranial hemorrhage. No mass lesion is evident. No acute infarcts are evident. There is periventricular white matter hypodensity, likely on the basis of chronic white matter ischemic changes. Ventricles and sulci are prominent for the patient age. Paranasal sinuses and mastoid air cells within the [id number] are clear. IMPRESSION: 1. Atrophy with chronic appearing periventricular white matter ischemic changes. 2. No acute intracranial hemorrhage radiographically apparent. 3. No acute intracranial process. Follow-up MRI can be performed as clinically indicated.
[2023-03-18 21:00] LABS: Glucose,Whole Blood 94 mg/dL (70-110)
--- NOTE | 2023-03-19 01:10 | P.CONS ---
History of Present Illness - Reason for Consult Consult date: 03/18/23 Diabetic foot ulcer Requesting physician: Vasyl Frank - Chief Complaint Nonhealing wound left foot x weeks - History of Present Illness Patient is a 67-year-old male with a past medical his significant for diabetes mellitus hypertension hyperlipidemia hypothyroidism patient apparently did have left big toe amputation done previously and the patient has been following at [facility] patient has been sent to the ER concerning for worsening cellulitis and infection to the left big toe. And need for IV antibiotic therapy. Patient did have a chronic nonhealing wound to the area for a couple of weeks now patient denies having any high-grade fever or any chills, patient did have diabetic neuropathy denies significant pain to the left foot wound area did have some drainage with associated swelling and redness patient denies having any headache or URI symptoms no chest pain shortness of breath or cough no nausea vomiting no abdominal pain no diarrhea. On arrival to the ER the patient was afebrile and no fever have recorded subsequently patient was not tachycardic or hypotensive he did have mild hypoxemia currently on 3 L nasal cannula oxygen patient did have a white count of 11.3 with a left shift BUN/creatinine has been elevated mildly liver isms are normal CRP is 4.5 blood cultures obtained which are currently pending no local cultures were obtained patient did have a x-ray of the foot previous great toe amputation patient with a soft tissue wound at the amputation stump and no overt findings of contagious osteomyelitis destruction at this time patient was started on vancomycin infectious disease was consulted for further management of antibiotic therapy Review of Systems Positive point and negatives has been mentioned in the HPI, complete review of systems was performed and all other systems are negative Past Medical History Past Medical History: Diabetes Mellitus, Hyperlipidemia, Hypertension, Thyroid Disorder History of Any Multi-Drug Resistant Organisms: None Reported Past Surgical History: Coronary Bypass/CABG, Heart Catheterization With Stent Additional Past Surgical History / Comment(s): left great and second toe removal. bilat carpal tunnel. neck fusion 5-6-7. triple bypass Past Anesthesia/Blood Transfusion Reactions: No Reported Reaction Additional Past Anesthesia/Blood Transfusion Reaction / Comm: no blood transfusion Date of Last Stent Placement:: 02/2002 Past Psychological History: No Psychological Hx Reported Smoking Status: Former smoker Past Alcohol Use History: None Reported Past Drug Use History: None Reported Medications and Allergies Home Medications Medication Instructions Recorded Confirmed Type Aspirin EC [Ecotrin Low Dose] 81 mg PO DAILY 03/04/21 03/17/23 History Ferrous Sulfate [Iron (65 MG 325 mg PO DAILY 03/04/21 03/17/23 History Elemental)] Gabapentin [Neurontin] 300 mg PO TID 03/04/21 03/17/23 History Hydroxychloroquine Sulfate 200 mg PO BID 03/04/21 03/17/23 History [Plaquenil] Levothyroxine Sodium [Synthroid] 100 mcg PO DAILY 03/04/21 03/17/23 History Simvastatin [Zocor] 20 mg PO DAILY 03/04/21 03/17/23 History Famotidine [Pepcid] 20 mg PO BID #60 tablet 03/12/21 03/17/23 Rx Sennosides [Senokot] 8.6 mg PO BID PRN tab 03/12/21 03/17/23 Rx Losartan [Cozaar] 25 mg PO DAILY #30 tab 03/13/21 03/17/23 Rx Meclizine [Antivert] 12.5 mg PO TID PRN 30 Days #90 03/13/21 03/17/23 Rx tablet amLODIPine [Norvasc] 5 mg PO BID 30 Days #60 tab 03/13/21 03/17/23 Rx Acetaminophen Tab [Tylenol] 500 - 1,000 mg PO Q4H PRN 03/17/23 03/17/23 History Balsalazide Disodium [Colazal] 2,250 mg PO TID 03/17/23 03/17/23 History Loratadine [Claritin] 10 mg PO DAILY 03/17/23 03/17/23 History Magnesium Oxide [Magox 400] 400 mg PO DAILY 03/17/23 03/17/23 History Testosterone Cypionate 200 mg IM Q28D 03/17/23 03/17/23 History [Depo-Testosterone] Atorvastatin [Lipitor] 10 mg PO DAILY tab 03/24/23 Rx Cefepime [Maxipime] 2 gm IVPB Q12HR each 03/24/23 Rx INSULIN ASPART (NovoLOG) [NovoLOG 0 unit SQ ACHS each 03/24/23 Rx (formulary)] Insuln Asp Prt/Insulin Aspart 35 unit SQ HS each 03/24/23 Rx [NovoLOG MIX 70-30 VIAL] Warfarin [Coumadin] 2 mg PO DAILY #30 tab 03/24/23 Rx carvediloL [Coreg*] 12.5 mg PO BID-W/MEALS tab 03/24/23 Rx Allergies Allergy/AdvReac Type Severity Reaction Status Date / Time Penicillins Allergy Unknown Verified 03/17/23 12:48 Childhood Physical Exam Vitals: Vital Signs Temp Pulse Pulse Resp BP BP Pulse Ox 03/18/23 08:20 97.7 F 59 L 17 141/77 95 03/18/23 07:08 79 16 146/86 98 03/18/23 05:38 98.1 F 62 16 104/67 97 03/18/23 04:50 98.2 F 79 16 100/42 97 03/18/23 03:28 98.3 F 81 16 148/72 03/17/23 10:47 98.5 F 65 18 171/93 100 Elderly male lying in bed in no distress Respiratory system unlabored breathing decreased breath sound the base Heart S1-S2 regular Abdominal soft no tenderness Extremities left foot wound at the base of first metatarsal with some callus also have a wound to the left heel area with slough tissue minimal surrounding redness Exam completed with the help of [id number] Results CBC & Chem 7: 03/24/23 08:31 03/24/23 08:31 Labs: Abnormal Lab Results - Last 24 Hours (Table) 03/17/23 03/17/23 03/17/23 Range/Units 11:44 11:44 17:10 WBC 11.3 H (3.8-10.6) k/uL Neutrophils # 9.7 H (1.3-7.7) k/uL Lymphocytes # 0.6 L (1.0-4.8) k/uL ESR 29 H (0-20) mm/Hr PT (10.0-12.5) sec INR (<1.2) Sodium 134 L (137-145) mmol/L Carbon Dioxide (22-30) mmol/L BUN 52 H (9-20) mg/dL Creatinine 2.03 H (0.66-1.25) mg/dL Glucose 296 H (74-99) mg/dL POC Glucose (mg/dL) 311 H (70-110) mg/dL Hemoglobin A1c (<=6.0) % Total Bilirubin 1.4 H (0.2-1.3) mg/dL C-Reactive Protein 4.5 H (<1.0) mg/dL Total Protein 5.7 L (6.3-8.2) g/dL 03/18/23 03/18/23 03/18/23 Range/Units 01:18 05:58 05:58 WBC (3.8-10.6) k/uL Neutrophils # (1.3-7.7) k/uL Lymphocytes # (1.0-4.8) k/uL ESR (0-20) mm/Hr PT 129.5 H (10.0-12.5) sec INR >10.0 H* (<1.2) Sodium (137-145) mmol/L Carbon Dioxide 32 H (22-30) mmol/L BUN 46 H (9-20) mg/dL Creatinine 2.06 H (0.66-1.25) mg/dL Glucose 36 L* (74-99) mg/dL POC Glucose (mg/dL) (70-110) mg/dL Hemoglobin A1c 9.1 H (<=6.0) % Total Bilirubin (0.2-1.3) mg/dL C-Reactive Protein (<1.0) mg/dL Total Protein (6.3-8.2) g/dL 03/18/23 Range/Units 06:45 WBC (3.8-10.6) k/uL Neutrophils # (1.3-7.7) k/uL Lymphocytes # (1.0-4.8) k/uL ESR (0-20) mm/Hr PT (10.0-12.5) sec INR (<1.2) Sodium (137-145) mmol/L Carbon Dioxide (22-30) mmol/L BUN (9-20) mg/dL Creatinine (0.66-1.25) mg/dL Glucose (74-99) mg/dL POC Glucose (mg/dL) 42 L (70-110) mg/dL Hemoglobin A1c (<=6.0) % Total Bilirubin (0.2-1.3) mg/dL C-Reactive Protein (<1.0) mg/dL Total Protein (6.3-8.2) g/dL Assessment and Plan (1) Cellulitis of left foot Status: Acute Code(s): L03.116 - CELLULITIS OF LEFT LOWER LIMB SNOMED Code(s): 39126192674546101 (2) Diabetic foot ulcer Status: Acute Code(s): E11.621 - TYPE 2 DIABETES MELLITUS WITH FOOT ULCER; L97.509 - NON-PRESSURE CHRONIC ULCER OTH PRT UNSP FOOT W UNSP SEVERITY SNOMED Code(s): 204587894 Plan: 1patient presented to hospital with left foot nonhealing wound in this patient who do have underlying history of diabetes mellitus and the patient did have a previous left big toe amputation and now with evidence of stump wound and cellulitis we will need to cover for the resistant gram-positive as well as gram-negative pathogen and the patient with a history of diabetes 2-penicillin allergy that will limit the number of antibiotics safe to use 3-patient did have renal insufficiency high risk of nephrotoxicity from vancomycin 4-vascular surgery evaluation for possible debridement and deep culture 5-discontinue vancomycin 6-we will empirically start the patient on cefepime and daptomycin while waiting for the culture and the workup to be finalized 7-we will check inflammatory markers and bone scan We will follow on clinical condition and cultures to further adjust medication if needed Thank you for this consultation we will follow the patient along with you Dictation was produced using [employer] dictation software. please excuse any grammatical, word or spelling errors. Time with Patient: Greater than 30
[2023-03-19 06:19] LABS: Glucose,Whole Blood 160 mg/dL (70-110)
[2023-03-19] MEDS: FAMOTIDINE 20 MG TAB PO SCH (08:19)
--- NOTE | 2023-03-19 10:17 | P.CONS ---
History of Present Illness - Reason for Consult Consult date: 03/19/23 wound care - History of Present Illness This is a 67-year-old gentleman with past medical history significant for diabetes, hyperlipidemia, hypertension, previous left great toe amputation. Patient is being seen by the wound care center for a stage II pressure ulcer to the right buttocks a stage II pressure ulcer to the left heel and a nonhealing ulceration with fatty layer exposure to the left forefoot. Patient states that he does not know how long the ulcerations have been there that they cause him significant amount of pain is requesting pain medications. Patient has a stage II pressure ulcer to the right buttock measuring approximately 0.4 x 0.4 x 0.1 cm with granulation seen throughout no tunneling or undermining noted. Left heel ulceration is a stage II ulceration with significant amounts of Slough and nonviable tissue present minimal to no granulation noted. No tunneling or undermining noted. Significant amount of pain with palpation. Left plantar forefoot ulceration measures approximately 1 x 1 x 0.2 cm with minimal undermining and callus noted to the periwound granulation and slough to the w ound VAC. No bleeding noted. Review Of Systems: Constitutional: No fever, no chills, no night sweats. No weight change. No weakness, fatigue or lethargy. No daytime sleepiness. Integumentary:reports wounds, no lesions. No rash or pruritus. No unusual bruising. No change in hair or nails. Physical exam: General Appearance: Alert, cooperative, no distress, appears stated age. Skin: See HPI all other Skin color, texture, tugor normal, no rashes or lesions. Neurologic: Alert oriented x3 Assessment: 1. Non-pressure ulceration with fatty layer exposure left forefoot 2. Stage II pressure ulcer left heel 3. Stage II pressure ulcer right buttocks 4. I buttock foot ulcer 5. Diabetes a skin ulceration Plan: 1. Left heel/left forefoot ulceration: Apply honey gel, dry gauze rolled gauze and secure with paper tape. Change Wednesday. Utilize a offloading boot and continue to offload with minimal ambulation. Utilize a walker 2. Right buttocks ulceration: Apply zinc to the site and offload. 3. Patient would benefit from continued advance wound care and wound care setting. Patient was reluctant to agree to come to the wound care center. We will happy to see him upon discharge if patient is willing. Thank you for the consultation any questions with contact the wound care center DNP note has been reviewed and discussed with Dr. Buenrostro and the impression a nd plan of care has been directed as dictated. Past Medical History Past Medical History: Diabetes Mellitus, Hyperlipidemia, Hypertension, Thyroid Disorder History of Any Multi-Drug Resistant Organisms: None Reported Past Surgical History: Coronary Bypass/CABG, Heart Catheterization With Stent Additional Past Surgical History / Comment(s): left great and second toe removal. bilat carpal tunnel. neck fusion 5-6-7. triple bypass Past Anesthesia/Blood Transfusion Reactions: No Reported Reaction Additional Past Anesthesia/Blood Transfusion Reaction / Comm: no blood transfusion Date of Last Stent Placement:: 02/2002 Past Psychological History: No Psychological Hx Reported Smoking Status: Former smoker Past Alcohol Use History: None Reported Past Drug Use History: None Reported Medications and Allergies Home Medications Medication Instructions Recorded Confirmed Type Aspirin EC [Ecotrin Low Dose] 81 mg PO DAILY 03/04/21 03/17/23 History Ferrous Sulfate [Iron (65 MG 325 mg PO DAILY 03/04/21 03/17/23 History Elemental)] Gabapentin [Neurontin] 300 mg PO TID 03/04/21 03/17/23 History Hydroxychloroquine Sulfate 200 mg PO BID 03/04/21 03/17/23 History [Plaquenil] Levothyroxine Sodium [Synthroid] 100 mcg PO DAILY 03/04/21 03/17/23 History Simvastatin [Zocor] 20 mg PO DAILY 03/04/21 03/17/23 History Famotidine [Pepcid] 20 mg PO BID #60 tablet 03/12/21 03/17/23 Rx Sennosides [Senokot] 8.6 mg PO BID PRN tab 03/12/21 03/17/23 Rx Losartan [Cozaar] 25 mg PO DAILY #30 tab 03/13/21 03/17/23 Rx Meclizine [Antivert] 12.5 mg PO TID PRN 30 Days #90 03/13/21 03/17/23 Rx tablet amLODIPine [Norvasc] 5 mg PO BID 30 Days #60 tab 03/13/21 03/17/23 Rx Insulin Aspart Prot/Insuln Asp 70 unit SQ HS 01/22/23 03/17/23 History [Novolog MIX 70-30 Flexpen] Warfarin [Coumadin] 7.5 mg PO SUTUWETHSA 01/22/23 03/17/23 History carvediloL [Coreg] 6.25 mg PO BID 01/22/23 03/17/23 History Acetaminophen Tab [Tylenol Tab] 500 - 1,000 mg PO Q4H PRN 03/17/23 03/17/23 History Balsalazide Disodium [Colazal] 2,250 mg PO TID 03/17/23 03/17/23 History Loratadine [Claritin] 10 mg PO DAILY 03/17/23 03/17/23 History Magnesium Oxide [Magox 400] 400 mg PO DAILY 03/17/23 03/17/23 History Testosterone Cypionate 200 mg IM Q28D 03/17/23 03/17/23 History [Depo-Testosterone] Warfarin [Coumadin] 10 mg PO MOFR 03/17/23 03/17/23 History Allergies Allergy/AdvReac Type Severity Reaction Status Date / Time Penicillins Allergy Unknown Verified 03/17/23 12:48 Childhood Physical Exam Vitals: Vital Signs Temp Pulse Pulse Resp BP BP Pulse Ox 03/19/23 09:07 97 03/19/23 08:00 18 03/19/23 07:00 98.5 F 63 18 153/77 100 03/19/23 04:18 98.5 F 60 16 168/86 98 03/19/23 01:48 63 16 03/18/23 23:37 97.9 F 63 16 135/74 100 03/18/23 20:00 70 18 03/18/23 19:48 97.9 F 70 18 171/92 100 03/18/23 17:00 20 03/18/23 16:46 75 18 179/99 99 03/18/23 15:27 97.9 F 73 18 160/72 96 03/18/23 13:09 97.6 F 61 18 124/95 96 03/18/23 12:15 97.4 F L 52 L 19 97 03/18/23 11:39 100 03/18/23 11:23 95 03/18/23 11:20 48 L 20 144/74 90 L Intake and Output 03/18/23 03/19/23 03/19/23 22:59 06:59 14:59 Intake Total 180 Output Total 350 Balance -350 180 Intake: Oral 180 Output: Urine 350 Other: Voiding Method Diaper Diaper Diaper # Voids 1 Results CBC & Chem 7: 03/18/23 05:58 03/18/23 05:58 Labs: Abnormal Lab Results - Last 24 Hours (Table) 03/18/23 03/18/23 03/18/23 Range/Units 11:12 11:38 13:56 POC Glucose (mg/dL) 28 L 117 H 69 L (70-110) mg/dL 03/18/23 03/19/23 Range/Units 15:37 06:00 POC Glucose (mg/dL) 123 H 160 H (70-110) mg/dL Microbiology - Last 24 Hours (Table) 03/17/23 11:30 Blood Culture - Preliminary Blood 03/17/23 11:43 Blood Culture - Preliminary Blood Assessment and Plan (1) Non-pressure chronic ulcer of other part of left foot with fat layer exposed Current Visit: Yes Status: Acute Code(s): L97.522 - NON-PRS CHRONIC ULCER OTH PRT LEFT FOOT W FAT LAYER EXPOSED SNOMED Code(s): 56381651747930568 (2) Pressure injury of left heel, stage 2 Current Visit: Yes Status: Acute Code(s): L89.622 - PRESSURE ULCER OF LEFT HEEL, STAGE 2 SNOMED Code(s): 74923936507881 (3) Pressure injury of right buttock, stage 2 Current Visit: Yes Status: Acute Code(s): L89.312 - PRESSURE ULCER OF RIGHT BUTTOCK, STAGE 2 SNOMED Code(s): 56323980284858 (4) Type 2 diabetes mellitus with other skin ulcer Current Visit: Yes Status: Acute Code(s): E11.622 - TYPE 2 DIABETES MELLITUS WITH OTHER SKIN ULCER; L98.499 - NON-PRESSURE CHRONIC ULCER OF SKIN OF SITES W UNSP SEVERITY SNOMED Code(s): 430810955 (5) Diabetic foot ulcer Current Visit: Yes Status: Acute Code(s): E11.621 - TYPE 2 DIABETES MELLITUS WITH FOOT ULCER; L97.509 - NON-PRESSURE CHRONIC ULCER OTH PRT UNSP FOOT W UNSP SEVERITY SNOMED Code(s): 547563945
[2023-03-19 10:49] LABS: Basophils % (A) 0 %; Eosinophils # (A) 0.4 k/uL (0-0.7); Eosinophils % (A) 4 %; HCT 34.3 % (39.0-53.0); HGB 11.8 gm/dL (13.0-17.5); Lymphocytes # (A) 0.4 k/uL (1.0-4.8); Lymphocytes % (A) 5 %; MCH 30.4 pg (25.0-35.0); MCHC 34.4 g/dL (31.0-37.0); MCV 88.5 fL (80.0-100.0); Mean Platelet Volume 9.2; Monocytes # (A) 0.6 k/uL (0-1.0); Monocytes % (A) 7 %; Neutrophils % (A) 83 %; Platelet Count 155 k/uL (150-450); RBC 3.88 m/uL (4.30-5.90); RDW 13.4 % (11.5-15.5); WBC 9.6 k/uL (3.8-10.6)
[2023-03-19 10:52] LABS: INR 1.1 (<1.2); Prothrombin Time 11.8 sec (10.0-12.5)
[2023-03-19 11:12] LABS: African American GFR (CKD) 45 (>60 ml/min/1.73 sqM); Anion Gap 3 mmol/L; Blood Urea Nitrogen 36 mg/dL (9-20); Calcium 7.8 mg/dL (8.4-10.2); Carbon Dioxide 29 mmol/L (22-30); Chloride 104 mmol/L (98-107); Glucose 164 mg/dL (74-99); Non-African American GFR(CKD) 39 (>60 ml/min/1.73 sqM); Potassium 3.5 mmol/L (3.5-5.1); Sodium 136 mmol/L (137-145)
[2023-03-19 11:22] LABS: C Reactive Protein 13.6 mg/dL (<1.0)
[2023-03-19 11:32] LABS: Glucose,Whole Blood 218 mg/dL (70-110)
[2023-03-19] MEDS: DAPTOmycin 350 MG in SODIUM CHLORIDE 0.9% 50 ML IVPB SCH (12:14)
[2023-03-19] MEDS: ZINC OXIDE PASTE (Z-GUARD) 1 APPLIC TOPICAL SCH (12:32)
[2023-03-19 13:31] LABS: Glucose,Whole Blood 241 mg/dL (70-110)
[2023-03-19 14:26] VITALS: BMI 35.2
--- NOTE | 2023-03-19 14:58 | NM ---
EXAMINATION TYPE: NM bone 3 phase DATE OF EXAM: 03/19/2023 COMPARISON: Radiograph 03/17/2023 CLINICAL INDICATION: Male, 67 years old with history of Left big toe amputation site wound /osteomyel itis; Technique: Triple phase bone scintigraphy was performed following the injection of 20.7 mCi Tc 99m MD P. Immediate images and 7 hours post injection images acquired. FINDINGS: Imaging is centered at the bilateral distal lower extremities. On fluoroscopy, there is slight hyperemia along the medial left forefoot appeared On both pool and delayed images. Corresponding focal uptake at the medial left forefoot. Both pool and delayed scan also shows focal activity within the dorsomedial right midfoot. IMPRESSION: 1. Three-phase positive bone scan findings involving the medial aspect of the left forefoot. Based on these findings, unable to exclude osteomyelitis at the great toe amputation site. 2. Increased activity at the dorsomedial right midfoot may be on a degenerative basis or could be pos ttraumatic. Consider radiographic correlation if indicated.
[2023-03-19 16:45] LABS: Glucose,Whole Blood 254 mg/dL (70-110)
[2023-03-19] MEDS: WARFARIN 7.5 MG TAB PO ONE (17:24)
[2023-03-19] MEDS: POTASSIUM CHLORIDE ER 20 MEQ TAB.ER PO STA (17:24)
[2023-03-19 20:22] LABS: Glucose,Whole Blood 329 mg/dL (70-110)
--- NOTE | 2023-03-19 21:53 | P.PN ---
Subjective Progress Note Date: 03/19/23 Principal diagnosis: Reason for follow-up is left foot wound and cellulitis Patient is a 67-year-old male with a past medical his significant for diabetes mellitus hypertension hyperlipidemia hypothyroidism patient apparently did have left big toe amputation done previously and the patient has been following at [facility] [place] patient has been sent to the ER concerning for worsening cellulitis and infection to the left heel and left forefront and second cellulitis. On today's evaluation that is 03/19/2023, the patient is afebrile, the patient is breathing comfortably on 2 L nasal cannula oxygen the patient denies having any shortness of breath chest pain or cough,.Patient denies having any abdominal pain no nausea vomiting or any diarrhea. Patient white count normalized to 9.6, creatinine is 1.77 CRP is 13.6 blood cultures so far pending blood cultures are pending Objective - Vital Signs Vital signs: Vital Signs Temp 98.5 F 03/19/23 07:00 Pulse 63 03/19/23 07:00 Resp 18 03/19/23 08:00 BP 153/77 03/19/23 07:00 Pulse Ox 97 03/19/23 09:07 FiO2 Intake & Output 03/18/23 03/19/23 03/19/23 18:59 06:59 18:59 Intake Total 180 Output Total 350 Balance -350 180 Intake: Oral 180 Output: Urine 350 Other: Voiding Method Diaper Diaper # Voids 1 - Exam Elderly male lying in bed in no distress Respiratory system unlabored breathing decreased breath sound the base Heart S1-S2 regular Abdominal soft no tenderness Left foot wound is currently dressed no drainage on the dressing Exam completed with the help of RETIREMENT ASSISTANT - Labs CBC & Chem 7: 03/19/23 09:57 03/19/23 09:57 Labs: Abnormal Lab Results - Last 24 Hours (Table) 03/18/23 03/18/23 03/18/23 Range/Units 05:58 11:12 11:38 PT 58.1 A* (9.9-11.9) sec INR 6.05 A* (0.93-1.11) sec POC Glucose (mg/dL) 28 L 117 H (70-110) mg/dL 03/18/23 03/18/23 03/19/23 Range/Units 13:56 15:37 06:00 PT (9.9-11.9) sec INR (0.93-1.11) sec POC Glucose (mg/dL) 69 L 123 H 160 H (70-110) mg/dL Microbiology - Last 24 Hours (Table) 03/17/23 11:30 Blood Culture - Preliminary Blood 03/17/23 11:43 Blood Culture - Preliminary Blood Assessment and Plan (1) Cellulitis of left foot Current Visit: Yes Status: Acute Code(s): L03.116 - CELLULITIS OF LEFT LOWER LIMB SNOMED Code(s): 37780713778360611 (2) Penicillin allergy Current Visit: Yes Status: Acute Code(s): Z88.0 - ALLERGY STATUS TO PENICILLIN SNOMED Code(s): 69409647 (3) Pressure injury of left heel, stage 2 Current Visit: Yes Status: Acute Code(s): L89.622 - PRESSURE ULCER OF LEFT HEEL, STAGE 2 SNOMED Code(s): 51448524064494 (4) Type 2 diabetes mellitus with other skin ulcer Current Visit: Yes Status: Acute Code(s): E11.622 - TYPE 2 DIABETES MELLITUS WITH OTHER SKIN ULCER; L98.499 - NON-PRESSURE CHRONIC ULCER OF SKIN OF SITES W UNSP SEVERITY SNOMED Code(s): 815989619 Plan: 1patient presented to hospital with left foot nonhealing wound in this patient who do have underlying history of diabetes mellitus and the patient did have a previous left big toe amputation and now with evidence of stump wound and cellulitis we will need to cover for the resistant gram-positive as well as gram-negative pathogen and the patient with a history of diabetes 2-penicillin allergy that will limit the number of antibiotics safe to use 3-patient did have renal insufficiency high risk of nephrotoxicity from vancomycin 4-currently waiting for vascular surgery evaluation for possible debridement and deep culture 5-patient to continue with cefepime and daptomycin while waiting for the culture and the workup to be finalized Dictation was produced using [employer] dictation software. please excuse any grammatical, word or spelling errors. Time with Patient: Greater than 30
[2023-03-19] MEDS ORDERED: WARFARIN 5 MG TAB PO SCH (23:28)
--- NOTE | 2023-03-20 01:36 | P.PN ---
Subjective Progress Note Date: 03/18/23 Patient is a 67-year-old male with a past medical history of coronary artery disease status post CABG, and stent placement, hypertension, diabetes type 2 insulin-dependent, hypothyroidism and prior history of compression of the right middle toe presents to ER with the complaints of left foot ulcer below the great toe. Patient does have history of peripheral neuropathy. Patient denies any purulent discharge. No fever no chills. No chest pain or shortness of breath. No nausea vomiting abdominal pain or diarrhea X-ray of the foot showed previous great toe amputation with soft tissue wound at the amputation stump. No overt findings of contiguous osteomyelitis or bony destruction at this time. Laboratory data showed WBC 11.3, hemoglobin 13.5 and platelets 229 Sodium 134 potassium 4.1 chloride 99 bicarb is 25 BUN 52 and creatinine 2.03 Blood sugar 296 and CRP 4.5. 03/18/2023 Patient is currently lying in the bed. Awake alert and oriented. Requiring 2 L oxygen via nasal cannula. Patient has been afebrile. Otherwise patient was hypoglycemic this morning. Was given IV push dextrose and also started on D5 half-normal saline. Insulin dose reduced to 35 units Levemir at bedtime. INR level is 6.05 today. Coumadin is on hold. Other laboratory showed WBC 10.7 hemoglobin 12.0 and platelets 194 BUN 46 and creatinine 2.06 and calcium 8.5. I A1c level is 9.1 Patient is being continued on antibiotics cefepime And daptomycin. Current medications reviewed. Objective - Vital Signs Vital signs: Vital Signs Temp 97.9 F 03/18/23 19:48 Pulse 70 03/18/23 19:48 Resp 18 03/18/23 19:48 BP 171/92 03/18/23 19:48 Pulse Ox 100 03/18/23 19:48 FiO2 Intake & Output 03/18/23 03/18/23 03/19/23 06:59 18:59 06:59 Other: # Voids 1 - Exam PHYSICAL EXAMINATION: Patient is lying in the bed comfortably, no acute distress, awake alert and oriented.. HEENT: Normocephalic. Neck is supple. Pupils reactive. Nostrils clear. Oral cavity is moist. Neck reveals no JVD, carotid bruits, or thyromegaly. CHEST EXAMINATION: Trachea is central. Symmetrical expansion. Lung delgado clear to auscultation and percussion. CARDIAC: Normal S1, S2 with no gallops. No murmurs ABDOMEN: Soft. Bowel sounds present. Nontender. No organomegaly. No abdominal bruits. Extremities: reveal no edema. No clubbing or cyanosis Neurologically awake, alert, oriented x3 with well-coordinated movements. No focal deficits noted Skin: No rash or skin lesions. Left foot ulcer on the plantar aspect of the great toe amputation site. Granulation tissue with surrounding skin slough. Psychiatric: Coperative. Nonsuicidal, Musculoskeletal: No joint swelling or deformity. Normal range of motion. - Labs CBC & Chem 7: 03/19/23 09:57 03/19/23 09:57 Labs: Abnormal Lab Results - Last 24 Hours (Table) 03/18/23 03/18/23 03/18/23 Range/Units 01:18 05:58 05:58 WBC (4.50-10.00) X 10*3/uL RBC (4.40-5.60) X 10*6/uL Hgb (13.0-17.0) g/dL Hct (39.6-50.0) % Immature Gran # (0.00-0.04) X 10*3/uL Neutrophils # (1.80-7.70) X 10*3/uL Lymphocytes # (0.90-5.00) X 10*3/uL Eosinophils # (0.04-0.35) X 10*3/uL PT 129.5 H (10.0-12.5) sec INR >10.0 H* (<1.2) Carbon Dioxide 32 H (22-30) mmol/L BUN 46 H (9-20) mg/dL Creatinine 2.06 H (0.66-1.25) mg/dL Glucose 36 L* (74-99) mg/dL POC Glucose (mg/dL) (70-110) mg/dL Hemoglobin A1c 9.1 H (<=6.0) % 03/18/23 03/18/23 03/18/23 Range/Units 05:58 05:58 06:45 WBC 10.79 H (4.50-10.00) X 10*3/uL RBC 4.09 L (4.40-5.60) X 10*6/uL Hgb 12.0 L (13.0-17.0) g/dL Hct 35.8 L (39.6-50.0) % Immature Gran # 0.09 H (0.00-0.04) X 10*3/uL Neutrophils # 8.70 H (1.80-7.70) X 10*3/uL Lymphocytes # 0.63 L (0.90-5.00) X 10*3/uL Eosinophils # 0.39 H (0.04-0.35) X 10*3/uL PT 58.1 A* (10.0-12.5) sec INR 6.05 A* (<1.2) Carbon Dioxide (22-30) mmol/L BUN (9-20) mg/dL Creatinine (0.66-1.25) mg/dL Glucose (74-99) mg/dL POC Glucose (mg/dL) 42 L (70-110) mg/dL Hemoglobin A1c (<=6.0) % 03/18/23 03/18/23 03/18/23 Range/Units 11:12 11:38 13:56 WBC (4.50-10.00) X 10*3/uL RBC (4.40-5.60) X 10*6/uL Hgb (13.0-17.0) g/dL Hct (39.6-50.0) % Immature Gran # (0.00-0.04) X 10*3/uL Neutrophils # (1.80-7.70) X 10*3/uL Lymphocytes # (0.90-5.00) X 10*3/uL Eosinophils # (0.04-0.35) X 10*3/uL PT (10.0-12.5) sec INR (<1.2) Carbon Dioxide (22-30) mmol/L BUN (9-20) mg/dL Creatinine (0.66-1.25) mg/dL Glucose (74-99) mg/dL POC Glucose (mg/dL) 28 L 117 H 69 L (70-110) mg/dL Hemoglobin A1c (<=6.0) % 03/18/23 Range/Units 15:37 WBC (4.50-10.00) X 10*3/uL RBC (4.40-5.60) X 10*6/uL Hgb (13.0-17.0) g/dL Hct (39.6-50.0) % Immature Gran # (0.00-0.04) X 10*3/uL Neutrophils # (1.80-7.70) X 10*3/uL Lymphocytes # (0.90-5.00) X 10*3/uL Eosinophils # (0.04-0.35) X 10*3/uL PT (10.0-12.5) sec INR (<1.2) Carbon Dioxide (22-30) mmol/L BUN (9-20) mg/dL Creatinine (0.66-1.25) mg/dL Glucose (74-99) mg/dL POC Glucose (mg/dL) 123 H (70-110) mg/dL Hemoglobin A1c (<=6.0) % Microbiology - Last 24 Hours (Table) 03/17/23 11:30 Blood Culture - Preliminary Blood 03/17/23 11:43 Blood Culture - Preliminary Blood Assessment and Plan Assessment: Left diabetic foot ulcer on the plantar surface at the amputation of the great toe site Acute kidney injury with prior history of CKD stage III. Baseline creatinine level 1.3-1.8 creatinine on admission 2.03. 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 Coronary artery disease with history of CABG and stent placement supratherapeutic INR level Long-term anticoagulation with Coumadin etiology not known. History of ulcerative colitis Hypothyroidism Medication noncompliance History of constipation Hyperlipidemia GI prophylaxis Plan: Patient will be continued on IV hydration with normal saline. Antibiotics changed to daptomycin and cefepime as per ID recommendations.. Wound care and ID is on board. Start back on home blood pressure medications and titrate as needed. Continue with insulin regimen and sliding scale was added. Coumadin is on hold due to supratherapeutic INR level Current home medications Follow-up culture reports. Continue with pain management. Prognosis is guarded. Time with Patient: Greater than 30
--- NOTE | 2023-03-20 01:39 | P.PN ---
Subjective Progress Note Date: 03/19/23 Patient is a 67-year-old male with a past medical history of coronary artery disease status post CABG, and stent placement, hypertension, diabetes type 2 insulin-dependent, hypothyroidism and prior history of compression of the right middle toe presents to ER with the complaints of left foot ulcer below the great toe. Patient does have history of peripheral neuropathy. Patient denies any purulent discharge. No fever no chills. No chest pain or shortness of breath. No nausea vomiting abdominal pain or diarrhea X-ray of the foot showed previous great toe amputation with soft tissue wound at the amputation stump. No overt findings of contiguous osteomyelitis or bony destruction at this time. Laboratory data showed WBC 11.3, hemoglobin 13.5 and platelets 229 Sodium 134 potassium 4.1 chloride 99 bicarb is 25 BUN 52 and creatinine 2.03 Blood sugar 296 and CRP 4.5. 03/18/2023 Patient is currently lying in the bed. Awake alert and oriented. Requiring 2 L oxygen via nasal cannula. Patient has been afebrile. Otherwise patient was hypoglycemic this morning. Was given IV push dextrose and also started on D5 half-normal saline. Insulin dose reduced to 35 units Levemir at bedtime. INR level is 6.05 today. Coumadin is on hold. Other laboratory showed WBC 10.7 hemoglobin 12.0 and platelets 194 BUN 46 and creatinine 2.06 and calcium 8.5. I A1c level is 9.1 Patient is being continued on antibiotics cefepime And daptomycin. 03/19/2023 Patient is resting in bed. Awake alert and oriented x 3. No complaints of chest pain or shortness of air. No headache or dizziness. Patient was noted to have right eye injection/redness. Due to supratherapeutic INR level CT head was ordered to rule out any intracranial bleed which is negative. Otherwise patient has been afebrile. Remains on antibiotics with daptomycin and cefepime as per ID recommendations. Coumadin is on hold. Patient is being current on IV hydration. Blood sugar readings BUN started on insulin regimen. Laboratory data showed WBC improved to 9.6 hemoglobin 11.8 and platelets 155 Sodium 136 potassium 3.5 chloride 104 bicarb is 29 BUN 36 and creatinine 1.77 and blood sugar 164. CRP 13.6. Current medications reviewed. Objective - Vital Signs Vital signs: Vital Signs Temp 98.5 F 03/19/23 07:00 Pulse 63 01/26/24 07:00 Resp 18 03/19/23 08:00 BP 153/77 03/19/23 07:00 Pulse Ox 97 03/19/23 09:07 FiO2 Intake & Output 03/18/23 03/19/23 03/19/23 18:59 06:59 18:59 Intake Total 180 Output Total 350 Balance -350 180 Intake: Oral 180 Output: Urine 350 Other: Voiding Method Diaper Diaper # Voids 1 - Exam PHYSICAL EXAMINATION: Patient is lying in the bed comfortably, no acute distress, awake alert and oriented.. HEENT: Normocephalic. Neck is supple. Pupils reactive. Nostrils clear. Oral cavity is moist. Neck reveals no JVD, carotid bruits, or thyromegaly. CHEST EXAMINATION: Trachea is central. Symmetrical expansion. Lung delgado clear to auscultation and percussion. CARDIAC: Normal S1, S2 with no gallops. No murmurs ABDOMEN: Soft. Bowel sounds present. Nontender. No organomegaly. No abdominal bruits. Extremities: reveal no edema. No clubbing or cyanosis Neurologically awake, alert, oriented x3 with well-coordinated movements. No focal deficits noted Skin: No rash or skin lesions. Left foot ulcer on the plantar aspect of the great toe amputation site-wrapped Psychiatric: Coperative. Nonsuicidal, Musculoskeletal: No joint swelling or deformity. Normal range of motion. - Labs CBC & Chem 7: 03/19/23 09:57 03/19/23 09:57 Labs: Abnormal Lab Results - Last 24 Hours (Table) 03/18/23 03/18/23 03/19/23 Range/Units 13:56 15:37 06:00 RBC (4.30-5.90) m/uL Hgb (13.0-17.5) gm/dL Hct (39.0-53.0) % Neutrophils # (1.3-7.7) k/uL Lymphocytes # (1.0-4.8) k/uL Sodium (137-145) mmol/L BUN (9-20) mg/dL Creatinine (0.66-1.25) mg/dL Glucose (74-99) mg/dL POC Glucose (mg/dL) 69 L 123 H 160 H (70-110) mg/dL Calcium (8.4-10.2) mg/dL C-Reactive Protein (<1.0) mg/dL 03/19/23 03/19/23 03/19/23 Range/Units 09:57 09:57 11:30 RBC 3.88 L (4.30-5.90) m/uL Hgb 11.8 L (13.0-17.5) gm/dL Hct 34.3 L (39.0-53.0) % Neutrophils # 8.0 H (1.3-7.7) k/uL Lymphocytes # 0.4 L (1.0-4.8) k/uL Sodium 136 L (137-145) mmol/L BUN 36 H (9-20) mg/dL Creatinine 1.77 H (0.66-1.25) mg/dL Glucose 164 H (74-99) mg/dL POC Glucose (mg/dL) 218 H (70-110) mg/dL Calcium 7.8 L (8.4-10.2) mg/dL C-Reactive Protein 13.6 H (<1.0) mg/dL Microbiology - Last 24 Hours (Table) 03/17/23 11:30 Blood Culture - Preliminary Blood 03/17/23 11:43 Blood Culture - Preliminary Blood Assessment and Plan Assessment: Left diabetic foot ulcer on the plantar surface at the amputation of the great toe site Acute kidney injury with prior history of CKD stage III. Baseline creatinine level 1.3-1.8 creatinine on admission 2.03. 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 Coronary artery disease with history of CABG and stent placement supratherapeutic INR level Long-term anticoagulation with Coumadin etiology not known. History of ulcerative colitis Hypothyroidism Medication noncompliance History of constipation Hyperlipidemia GI prophylaxis Plan: Patient will be continued on IV hydration with normal saline. Antibiotics changed to daptomycin and cefepime as per ID recommendations.. Wound care and ID is on board. Start back on home blood pressure medications and titrate as needed. Follow-up renal function. Continue with insulin regimen. Continue with insulin regimen and sliding scale was added. Coumadin is on hold due to supratherapeutic INR level Current home medications Follow-up culture reports. Continue with pain management. Prognosis is guarded. Time with Patient: Greater than 30
[2023-03-20 02:10] LABS: Erythrocyte Sedimentation Rate 10 mm/Hr (0-20)
[2023-03-20 06:03] LABS: Glucose,Whole Blood 161 mg/dL (70-110)
[2023-03-20] MEDS: SODIUM CHLORIDE 0.9% 1,000 ML IV SCH (06:13)
[2023-03-20 07:00] LABS: Basophils % (A) 1 %; Eosinophils # (A) 0.4 k/uL (0-0.7); Eosinophils % (A) 5 %; HCT 30.4 % (39.0-53.0); HGB 10.7 gm/dL (13.0-17.5); Lymphocytes # (A) 0.5 k/uL (1.0-4.8); Lymphocytes % (A) 6 %; MCH 30.7 pg (25.0-35.0); MCHC 35.2 g/dL (31.0-37.0); MCV 87.2 fL (80.0-100.0); Mean Platelet Volume 8.4; Monocytes # (A) 0.6 k/uL (0-1.0); Monocytes % (A) 7 %; Neutrophils # (A) 7.1 k/uL (1.3-7.7); Neutrophils % (A) 80 %; Platelet Count 142 k/uL (150-450); RBC 3.49 m/uL (4.30-5.90); RDW 13.4 % (11.5-15.5); WBC 8.8 k/uL (3.8-10.6)
[2023-03-20 07:14] LABS: INR 1.1 (<1.2); Prothrombin Time 12.3 sec (10.0-12.5)
[2023-03-20 10:12] LABS: African American GFR (CKD) 41 (>60 ml/min/1.73 sqM); Anion Gap 3 mmol/L; Blood Urea Nitrogen 32 mg/dL (9-20); Calcium 7.7 mg/dL (8.4-10.2); Carbon Dioxide 25 mmol/L (22-30); Chloride 105 mmol/L (98-107); Glucose 115 mg/dL (74-99); Non-African American GFR(CKD) 36 (>60 ml/min/1.73 sqM); Potassium 3.4 mmol/L (3.5-5.1); Sodium 133 mmol/L (137-145)
[2023-03-20] MEDS: LIDOCAINE 1% INJ 10MG/ML (20 ML MDV) SQ ONE (11:21)
[2023-03-20 11:28] LABS: Glucose,Whole Blood 128 mg/dL (70-110)
--- NOTE | 2023-03-20 11:40 | PCN ---
PROCEDURE NOTE PREOPERATIVE DIAGNOSIS: Diabetic foot ulcer on the left heel, measurement is 1 x 2 cm. POSTOPERATIVE DIAGNOSIS: Post debridement, measurement is 1 x 2 x 0.5 cm. DESCRIPTION OF PROCEDURE: The left foot was prepped, 1% lidocaine was infiltrated. Using knife, we did the debridement down to subcutaneous tissue from the left heel. The tissue was sent for deep culture. Hemostasis was controlled. We placed Medihoney Gel dressing applied. The patient tolerated the procedure well. PLAN: Change the dressing daily with Medihoney Gel. Continue with IV antibiotic. MMODL / IJN: [id number] /
--- NOTE | 2023-03-20 11:45 | OP ---
OPERATIVE REPORT DATE OF SERVICE : SUBJECTIVE: The patient was seen this morning with history of wound, left heel plantar aspect with some tenderness and redness noted. The patient also has a callus formation on the plantar aspect of the left foot, base of the wound is clean. No discharge is noted. The patient has a scab on the right foot, involving the lateral aspect of the big toe and some on the dorsal aspect of the foot. MEDICAL HISTORY: History of diabetes, hypertension. PHYSICAL EXAMINATION: . Femorals are 1+. The patient has a left wound with some fluctuation. PLAN: Debridement and deep culture. The patient is on antibiotic under care of Infectious Disease. MMODL / IJN: [id number] /
--- NOTE | 2023-03-20 12:23 | P.PN ---
Subjective Patient is a 67-year-old male with a past medical history of coronary artery disease status post CABG, and stent placement, hypertension, diabetes type 2 insulin-dependent, hypothyroidism and prior history of compression of the right middle toe presents to ER with the complaints of left foot ulcer below the great toe. Patient does have history of peripheral neuropathy. Patient denies any purulent discharge. No fever no chills. No chest pain or shortness of breath. No nausea vomiting abdominal pain or diarrhea X-ray of the foot showed previous great toe amputation with soft tissue wound at the amputation stump. No overt findings of contiguous osteomyelitis or bony destruction at this time. Laboratory data showed WBC 11.3, hemoglobin 13.5 and platelets 229 Sodium 134 potassium 4.1 chloride 99 bicarb is 25 BUN 52 and creatinine 2.03 Blood sugar 296 and CRP 4.5. 03/18/2023 Patient is currently lying in the bed. Awake alert and oriented. Requiring 2 L oxygen via nasal cannula. Patient has been afebrile. Otherwise patient was hypoglycemic this morning. Was given IV push dextrose and also started on D5 half-normal saline. Insulin dose reduced to 35 units Levemir at bedtime. INR level is 6.05 today. Coumadin is on hold. Other laboratory showed WBC 10.7 hemoglobin 12.0 and platelets 194 BUN 46 and creatinine 2.06 and calcium 8.5. I A1c level is 9.1 Patient is being continued on antibiotics cefepime And daptomycin. 03/19/2023 Patient is resting in bed. Awake alert and oriented x 3. No complaints of chest pain or shortness of air. No headache or dizziness. Patient was noted to have right eye injection/redness. Due to supratherapeutic INR level CT head was ordered to rule out any intracranial bleed which is negative. Otherwise patient has been afebrile. Remains on antibiotics with daptomycin and cefepime as per ID recommendations. Coumadin is on hold. Patient is being current on IV hydration. Blood sugar readings BUN started on insulin regimen. Laboratory data showed WBC improved to 9.6 hemoglobin 11.8 and platelets 155 Sodium 136 potassium 3.5 chloride 104 bicarb is 29 BUN 36 and creatinine 1.77 and blood sugar 164. CRP 13.6. 03/20/2023 Patient admitted with infected diabetic ulcers with surrounding cellulitis more of the left side and he underwent debridement of his left foot today by vascular surgery team. Wound cultures pending Patient currently remains on daptomycin and cefepime He is on Coumadin at home and he states is been taking more than a year and he follows up with Dr. Palomino but he doesn't know why he takes the Coumadin, he doesn't know if he had a clot before in his legs or lungs. He currently does not follow up with crime prevention police officer as an outpatient History is that he takes 5 mg at 7.5 mg at home alternatively. Objective - Vital Signs Vital signs: Vital Signs Temp 98.2 F 03/20/23 08:10 Pulse 57 L 03/20/23 08:10 Resp 18 03/20/23 08:10 BP 139/65 03/20/23 08:10 Pulse Ox 98 03/20/23 09:00 FiO2 Intake & Output 03/19/23 03/20/23 03/20/23 18:59 06:59 18:59 Intake Total 180 540 240 Output Total 450 500 Balance 180 90 -260 Weight 111.13 kg Intake: Oral 180 540 240 Output: Urine 450 500 Other: Voiding Method Urinal Urinal # Voids 1 # Bowel Movements 1 0 - Exam GENERAL: The patient is alert and oriented x3, not in any acute distress. Well developed, well nourished. HEENT: Pupils are round and equally reacting to light. EOMI. No scleral icterus. No conjunctival pallor. Normocephalic, atraumatic. No pharyngeal erythema. No thyromegaly. CARDIOVASCULAR: S1 and S2 present. No murmurs, rubs, or gallops. PULMONARY: Chest is clear to auscultation, no wheezing , no crackles. ABDOMEN: Soft, nontender, nondistended, normoactive bowel sounds. No palpable organomegaly. MUSCULOSKELETAL: No joint swelling or deformity. -EXTREMITIES: No cyanosis, clubbing, or pedal edema. Bilateral feet in a dressing, left foot surgical wound was dressed in a Place NEUROLOGICAL: Gross neurological examination did not reveal any focal deficits. SKIN: No rashes. no petechiae. - Labs CBC & Chem 7: 03/20/23 06:37 03/20/23 06:37 Labs: Abnormal Lab Results - Last 24 Hours (Table) 03/19/23 03/19/23 03/19/23 Range/Units 13:10 16:43 20:20 RBC (4.30-5.90) m/uL Hgb (13.0-17.5) gm/dL Hct (39.0-53.0) % Plt Count (150-450) k/uL Lymphocytes # (1.0-4.8) k/uL Sodium (137-145) mmol/L Potassium (3.5-5.1) mmol/L BUN (9-20) mg/dL Creatinine (0.66-1.25) mg/dL Glucose (74-99) mg/dL POC Glucose (mg/dL) 241 H 254 H 329 H (70-110) mg/dL Calcium (8.4-10.2) mg/dL 03/20/23 03/20/23 03/20/23 Range/Units 06:02 06:37 06:37 RBC 3.49 L (4.30-5.90) m/uL Hgb 10.7 L (13.0-17.5) gm/dL Hct 30.4 L (39.0-53.0) % Plt Count 142 L (150-450) k/uL Lymphocytes # 0.5 L (1.0-4.8) k/uL Sodium 133 L (137-145) mmol/L Potassium 3.4 L (3.5-5.1) mmol/L BUN 32 H (9-20) mg/dL Creatinine 1.91 H (0.66-1.25) mg/dL Glucose 115 H (74-99) mg/dL POC Glucose (mg/dL) 161 H (70-110) mg/dL Calcium 7.7 L (8.4-10.2) mg/dL 03/20/23 Range/Units 11:27 RBC (4.30-5.90) m/uL Hgb (13.0-17.5) gm/dL Hct (39.0-53.0) % Plt Count (150-450) k/uL Lymphocytes # (1.0-4.8) k/uL Sodium (137-145) mmol/L Potassium (3.5-5.1) mmol/L BUN (9-20) mg/dL Creatinine (0.66-1.25) mg/dL Glucose (74-99) mg/dL POC Glucose (mg/dL) 128 H (70-110) mg/dL Calcium (8.4-10.2) mg/dL Microbiology - Last 24 Hours (Table) 03/19/23 04:40 Gram Stain - Preliminary Foot - Left 03/17/23 11:30 Blood Culture - Preliminary Blood 03/17/23 11:43 Blood Culture - Preliminary Blood Assessment and Plan Assessment: Left diabetic foot ulcer on the plantar surface at the amputation of the great toe site reinspected status post I&D on 03/20 Acute kidney injury with prior history of CKD stage III. Baseline creatinine level 1.3-1.8 creatinine on admission 2.03. 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 Coronary artery disease with history of CABG and stent placement supratherapeutic INR level Long-term anticoagulation with Coumadin etiology not known. History of ulcerative colitis Hypothyroidism Medication noncompliance History of constipation Hyperlipidemia Plan: Continue with daptomycin and cefepime Infectious disease consult Follow-up wound culture Vascular surgery team consult Labs and medication were reviewed.. Continue same treatment. Continue with symptomatic treatment. Resume home medication. Monitor labs and vitals. DVT and GI prophylaxis. Further recommendations as per clinical course of the patient DVT prophylaxis: On warfarin GI Prophylaxis: Pepcid PT/OT: Pending Prognosis is guarded
[2023-03-20 16:08] LABS: Glucose,Whole Blood 151 mg/dL (70-110)
[2023-03-20] MEDS: WARFARIN 7.5 MG TAB PO ONE (17:27)
[2023-03-20 20:01] LABS: Glucose,Whole Blood 140 mg/dL (70-110)
[2023-03-21] MEDS: DEXTROSE 50% SYRINGE 50 ML IVP PRN (06:06)
[2023-03-21 06:08] LABS: Glucose,Whole Blood 49 mg/dL (70-110)
[2023-03-21 06:39] LABS: Glucose,Whole Blood 149 mg/dL (70-110)
[2023-03-21 08:08] LABS: INR 1.5 (<1.2); Prothrombin Time 15.1 sec (10.0-12.5)
--- NOTE | 2023-03-21 08:52 | P.PN ---
Subjective Patient is a 67-year-old male with a past medical history of coronary artery disease status post CABG, and stent placement, hypertension, diabetes type 2 insulin-dependent, hypothyroidism and prior history of compression of the right middle toe presents to ER with the complaints of left foot ulcer below the great toe. Patient does have history of peripheral neuropathy. Patient denies any purulent discharge. No fever no chills. No chest pain or shortness of breath. No nausea vomiting abdominal pain or diarrhea X-ray of the foot showed previous great toe amputation with soft tissue wound at the amputation stump. No overt findings of contiguous osteomyelitis or bony destruction at this time. Laboratory data showed WBC 11.3, hemoglobin 13.5 and platelets 229 Sodium 134 potassium 4.1 chloride 99 bicarb is 25 BUN 52 and creatinine 2.03 Blood sugar 296 and CRP 4.5. 03/18/2023 Patient is currently lying in the bed. Awake alert and oriented. Requiring 2 L oxygen via nasal cannula. Patient has been afebrile. Otherwise patient was hypoglycemic this morning. Was given IV push dextrose and also started on D5 half-normal saline. Insulin dose reduced to 35 units Levemir at bedtime. INR level is 6.05 today. Coumadin is on hold. Other laboratory showed WBC 10.7 hemoglobin 12.0 and platelets 194 BUN 46 and creatinine 2.06 and calcium 8.5. I A1c level is 9.1 Patient is being continued on antibiotics cefepime And daptomycin. 03/19/2023 Patient is resting in bed. Awake alert and oriented x 3. No complaints of chest pain or shortness of air. No headache or dizziness. Patient was noted to have right eye injection/redness. Due to supratherapeutic INR level CT head was ordered to rule out any intracranial bleed which is negative. Otherwise patient has been afebrile. Remains on antibiotics with daptomycin and cefepime as per ID recommendations. Coumadin is on hold. Patient is being current on IV hydration. Blood sugar readings BUN started on insulin regimen. Laboratory data showed WBC improved to 9.6 hemoglobin 11.8 and platelets 155 Sodium 136 potassium 3.5 chloride 104 bicarb is 29 BUN 36 and creatinine 1.77 and blood sugar 164. CRP 13.6. 03/20/2023 Patient admitted with infected diabetic ulcers with surrounding cellulitis more of the left side and he underwent debridement of his left foot today by vascular surgery team. Wound cultures pending Patient currently remains on daptomycin and cefepime He is on Coumadin at home and he states is been taking more than a year and he follows up with Dr. Palomino but he doesn't know why he takes the Coumadin, he doesn't know if he had a clot before in his legs or lungs. He currently does not follow up with manager of care as an outpatient History is that he takes 5 mg at 7.5 mg at home alternatively. 03/21/2023 Patient clinically doing well He never had pain in his feet Dressing was changed yesterday with Dr. Galindo and looks good. His INR today 1.5 Patient wants to go home once once cultures back. 1 culture is growing gram-negative bacilli pending final results Patient remains on daptomycin and cefepime and warfarin Objective - Vital Signs Vital signs: Vital Signs Temp 97.6 F 03/21/23 04:26 Pulse 57 L 03/21/23 04:26 Resp 16 03/21/23 04:26 BP 133/77 03/21/23 04:26 Pulse Ox 93 L 03/21/23 04:26 FiO2 Intake & Output 03/20/23 03/21/23 03/21/23 18:59 06:59 18:59 Intake Total 790 Output Total 500 500 Balance 290 -500 Intake: Intake, IV Titration 550 Amount Cefepime 2 gm In Sodium 100 Chloride 0.9% 100 ml @ 25 mls/hr IVPB Q12HR FELA Rx #:[id number] DAPTOmycin 350 mg In 50 Sodium Chloride 0.9% 50 ml @ 100 mls/hr IVPB Q24HR FELA Rx#:[id number] Sodium Chloride 0.9% 1, 400 000 ml @ 50 mls/hr IV . Q20H FELA Rx#:[id number] Oral 240 Output: Urine 500 500 Other: Voiding Method Urinal # Voids 1 - Exam GENERAL: The patient is alert and oriented x3, not in any acute distress. Well developed, well nourished. HEENT: Pupils are round and equally reacting to light. EOMI. No scleral icterus. No conjunctival pallor. Normocephalic, atraumatic. No pharyngeal erythema. No th yromegaly. CARDIOVASCULAR: S1 and S2 present. No murmurs, rubs, or gallops. PULMONARY: Chest is clear to auscultation, no wheezing , no crackles. ABDOMEN: Soft, nontender, nondistended, normoactive bowel sounds. No palpable organomegaly. MUSCULOSKELETAL: No joint swelling or deformity. -EXTREMITIES: No cyanosis, clubbing, or pedal edema. Bilateral feet in a dressing, left foot surgical wound was dressed in a Place NEUROLOGICAL: Gross neurological examination did not reveal any focal deficits. SKIN: No rashes. no petechiae. - Labs CBC & Chem 7: 03/20/23 06:37 03/20/23 06:37 Labs: Abnormal Lab Results - Last 24 Hours (Table) 03/20/23 03/20/23 03/20/23 Range/Units 06:37 11:27 16:07 PT (10.0-12.5) sec INR (<1.2) Sodium 133 L (137-145) mmol/L Potassium 3.4 L (3.5-5.1) mmol/L BUN 32 H (9-20) mg/dL Creatinine 1.91 H (0.66-1.25) mg/dL Glucose 115 H (74-99) mg/dL POC Glucose (mg/dL) 128 H 151 H (70-110) mg/dL Calcium 7.7 L (8.4-10.2) mg/dL 03/20/23 03/21/23 03/21/23 Range/Units 19:59 06:02 06:37 PT (10.0-12.5) sec INR (<1.2) Sodium (137-145) mmol/L Potassium (3.5-5.1) mmol/L BUN (9-20) mg/dL Creatinine (0.66-1.25) mg/dL Glucose (74-99) mg/dL POC Glucose (mg/dL) 140 H 49 L 149 H (70-110) mg/dL Calcium (8.4-10.2) mg/dL 03/21/23 Range/Units 07:19 PT 15.1 H (10.0-12.5) sec INR 1.5 H (<1.2) Sodium (137-145) mmol/L Potassium (3.5-5.1) mmol/L BUN (9-20) mg/dL Creatinine (0.66-1.25) mg/dL Glucose (74-99) mg/dL POC Glucose (mg/dL) (70-110) mg/dL Calcium (8.4-10.2) mg/dL Microbiology - Last 24 Hours (Table) 03/20/23 11:03 Gram Stain - Preliminary Heel - Left 03/17/23 11:30 Blood Culture - Preliminary Blood 03/17/23 11:43 Blood Culture - Preliminary Blood 03/19/23 04:40 Gram Stain - Preliminary Foot - Left Wound Culture - Preliminary Gram Neg Bacilli Assessment and Plan Assessment: Left diabetic foot ulcer on the plantar surface at the amputation of the great toe site reinspected status post I&D on 03/20 Acute kidney injury with prior history of CKD stage III. Baseline creatinine level 1.3-1.8 creatinine on admission 2.03. 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 Coronary artery disease with history of CABG and stent placement supratherapeutic INR level Long-term anticoagulation with Coumadin etiology not known. History of ulcerative colitis Hypothyroidism Medication noncompliance History of constipation Hyperlipidemia Plan: Continue with daptomycin and cefepime Infectious disease consult Follow-up wound culture Vascular surgery team consult Labs and medication were reviewed.. Continue same treatment. Continue with symptomatic treatment. Resume home medication. Monitor labs and vitals. DVT and GI prophylaxis. Further recommendations as per clinical course of the patient DVT prophylaxis: On warfarin GI Prophylaxis: Pepcid PT/OT: Pending Prognosis is guarded
[2023-03-21 11:31] LABS: Glucose,Whole Blood 112 mg/dL (70-110)
[2023-03-21 16:18] LABS: Glucose,Whole Blood 162 mg/dL (70-110)
[2023-03-21] MEDS: WARFARIN 7.5 MG TAB PO ONE (17:12)
[2023-03-21 20:10] LABS: Glucose,Whole Blood 188 mg/dL (70-110)
[2023-03-22 06:25] LABS: Glucose,Whole Blood 97 mg/dL (70-110)
[2023-03-22 09:51] LABS: INR 2.5 (<1.2); Prothrombin Time 24.5 sec (10.0-12.5)
[2023-03-22 10:08] VITALS: RESP 18
--- NOTE | 2023-03-22 11:33 | P.CRDCN ---
History of Present Illness Consult date: 03/22/23 Consult reason: atrial fibrillation (new) History of present illness: History of present illness: This is a 67-year-old male patient previously seen by Dr. Burnham 01/24/2020 with past medical history of coronary artery disease status post CABG, hypertension, diabetes, dyslipidemia, hypothyroidism. We have been asked to evaluate the patient for new onset A-fib. Patient is unable to recall his past cardiac history. He may have been told that he had atrial fibrillation in the past. Patient is on Coumadin but cannot verbalize exactly why he is taking it. He states his PCP is taking care of all of his cardiac needs. It appears, patient converted into atrial fibrillation from a sinus rhythm and then into atrial flutter with heart rates controlled. Patient presented to hospital due to left diabetic foot ulcer status postdebridement, acute kidney injury with chronic kidney disease stage III and uncontrolled diabetes and uncontrolled. Patient denies feeling any fluttering in his chest, no chest pain, no lightheadedness or dizziness. He is able to EKG 03/19 sinus bradycardia with first-degree block, 03/21 8 PM atrial fibrillation at 96 bpm. INR is 2.5. WBC 8.8, hemoglobin 10.7, platelet count 142. Sodium 133, potassium 3.4, BUN 32 creatinine 1.91. Hemoglobin A1c 9.1. Home cardiac medications: Amlodipine 5 mg twice daily, aspirin 81 mg daily, Coreg 6.25 mg twice daily, ferrous sulfate 3 to 25 mg daily, hydrochloric when 200 mg twice daily, losartan 25 mg daily, magnesium oxide 4 mg daily, simvastatin 20 mg warfarin 10 mg on Mondays and Fridays and 7.5 mg on other days. Patient is also on levothyroxine 1 mcg daily. Review Of Systems: At the time of my evaluation: Constitutional: No fever, no chills. No weakness, fatigue or lethargy. EENT: No headache. No dizziness. Lungs: No shortness of breath, + cough, no sputum production. No wheezing. + Dyspnea on exertion Cardiovascular: No chest pain, no lower extremity edema. No palpitations. No paroxysmal nocturnal dyspnea. No orthopnea. No lightheadedness or dizziness. No syncopal episodes. Abdominal: No abdominal pain. No nausea, vomiting. No diarrhea. Musculoskeletal: No myalgias. No muscle weakness, no frequent falls. Integumentary: + wounds. No rash. No unusual bruising. Neurologic: No aphasia. No facial droop. Noted change in mentation. Physical examination: Gen: This is a 67-year-old male resting bed appears to be in no acute distress. VS: reviewed HEENT: Head is atraumatic, normocephalic. Pupils equal, round. Sclerae is anicteric. NECK: Supple. No JVD. . LUNGS: Clear to auscultation. No wheezes or rhonchi. No intercostal ret ractions. HEART: Regular rate and rhythm. No murmur. ABDOMEN: Soft No tenderness. EXTREMITIES: Min pedal edema. No calf tenderness. NEUROLOGICAL: Patient is awake, alert and oriented to person and place. Assessment: Atrial fibrillation/atrial flutter typical probably paroxysmal Coronary artery disease status post CABG Hypertension Diabetes Dyslipidemia Hypothyroidism Diabetic foot ulcer status postdebridement Acute kidney injury, chronic kidney disease stage III Uncontrolled diabetes mellitus type 2 Hypercoagulopathy on presentation Plan: Continue patient's current cardiac medications, heart rate is controlled. Continue Coumadin, pharmacy is dosing Obtain 2-D echocardiogram and Doppler study to assess cardiac structure and function Further recommendations to follow based upon clinical course Thank you kindly for this consultation. Nurse practitioner note has been reviewed, I agree with documented findings and plan of care. Patient was seen and examined. Past Medical History Past Medical History: Diabetes Mellitus, Hyperlipidemia, Hypertension, Thyroid Disorder History of Any Multi-Drug Resistant Organisms: None Reported Past Surgical History: Coronary Bypass/CABG, Heart Catheterization With Stent Additional Past Surgical History / Comment(s): left great and second toe removal. bilat carpal tunnel. neck fusion 5-6-7. triple bypass Past Anesthesia/Blood Transfusion Reactions: No Reported Reaction Additional Past Anesthesia/Blood Transfusion Reaction / Comment(s): no blood transfusion Date of Last Stent Placement:: 02/2002 Past Psychological History: No Psychological Hx Reported Smoking Status: Former smoker Past Alcohol Use History: None Reported Past Drug Use History: None Reported Medications and Allergies Home Medications Medication Instructions Recorded Confirmed Type Aspirin EC [Ecotrin Low Dose] 81 mg PO DAILY 03/04/21 03/17/23 History Ferrous Sulfate [Iron (65 MG 325 mg PO DAILY 03/04/21 03/17/23 History Elemental)] Gabapentin [Neurontin] 300 mg PO TID 03/04/21 03/17/23 History Hydroxychloroquine Sulfate 200 mg PO BID 03/04/21 03/17/23 History [Plaquenil] Levothyroxine Sodium [Synthroid] 100 mcg PO DAILY 03/04/21 03/17/23 History Simvastatin [Zocor] 20 mg PO DAILY 03/04/21 03/17/23 History Famotidine [Pepcid] 20 mg PO BID #60 tablet 03/12/21 03/17/23 Rx Sennosides [Senokot] 8.6 mg PO BID PRN tab 03/12/21 03/17/23 Rx Losartan [Cozaar] 25 mg PO DAILY #30 tab 03/13/21 03/17/23 Rx Meclizine [Antivert] 12.5 mg PO TID PRN 30 Days #90 03/13/21 03/17/23 Rx tablet amLODIPine [Norvasc] 5 mg PO BID 30 Days #60 tab 03/13/21 03/17/23 Rx Insulin Aspart Prot/Insuln Asp 70 unit SQ HS 01/22/23 03/17/23 History [Novolog MIX 70-30 Flexpen] Warfarin [Coumadin] 7.5 mg PO SUTUWETHSA 01/22/23 03/17/23 History carvediloL [Coreg] 6.25 mg PO BID 01/22/23 03/17/23 History Acetaminophen Tab [Tylenol Tab] 500 - 1,000 mg PO Q4H PRN 03/17/23 03/17/23 History Balsalazide Disodium [Colazal] 2,250 mg PO TID 03/17/23 03/17/23 History Loratadine [Claritin] 10 mg PO DAILY 03/17/23 03/17/23 History Magnesium Oxide [Magox 400] 400 mg PO DAILY 03/17/23 03/17/23 History Testosterone Cypionate 200 mg IM Q28D 03/17/23 03/17/23 History [Depo-Testosterone] Warfarin [Coumadin] 10 mg PO MOFR 03/17/23 03/17/23 History Allergies Allergy/AdvReac Type Severity Reaction Status Date / Time Penicillins Allergy Unknown Verified 03/17/23 12:48 Childhood Physical Exam Vitals: Vital Signs Temp Pulse Resp BP Pulse Ox 03/22/23 08:58 97 03/22/23 04:00 98.3 F 74 16 142/68 97 03/22/23 00:00 98.1 F 79 16 134/71 95 03/21/23 20:00 98.4 F 85 16 151/76 98 03/21/23 15:00 98.8 F 95 16 135/63 97 Intake and Output 03/21/23 03/22/23 03/22/23 22:59 06:59 14:59 Intake Total 0 Output Total 600 1000 Balance -600 -1000 Intake: Oral 0 Output: Urine 600 1000 Other: Voiding Method Urinal Urinal # Voids 1 Results 03/20/23 06:37 03/20/23 06:37 Current Medications Generic Name Dose Route Start Last Admin Trade Name Freq PRN Reason Stop Dose Admin Acetaminophen 650 mg 03/17/23 12:38 Acetaminophen Tab 325 Mg Tab PO Q6HR PRN Mild Pain or Fever > 100.5 Hydrocodone Bitart/Acetaminophen 1 each 03/17/23 12:38 03/20/23 21:14 Hydrocodone/Apap 5-325mg 1 Each Tab PO 1 each Q4HR PRN Administration Moderate Pain (Scale 4 to 6) Amlodipine Besylate 5 mg 03/17/23 23:30 03/22/23 08:35 Amlodipine 5 Mg Tab PO 5 mg BID FELA Administration Atorvastatin Calcium 10 mg 03/18/23 09:00 03/22/23 08:35 Atorvastatin 10 Mg Tab PO 10 mg DAILY FELA Administration Balsalazide 2,250 mg 03/18/23 09:00 03/22/23 08:35 Balsalazide Disodium 750 Mg Capsule PO 2,250 mg TID FELA Administration Carvedilol 6.25 mg 03/17/23 23:30 03/22/23 08:35 Carvedilol 6.25 Mg Tab PO 6.25 mg BID FELA Administration Dextrose/Water 25 ml 03/17/23 23:30 03/21/23 06:06 Dextrose 50% Syringe 50 Ml IVP 25 ml PER PROTOCOL PRN Administration Hypoglycemia Protocol Dextrose/Water 50 ml 03/17/23 23:30 03/18/23 11:14 Dextrose 50% Syringe 50 Ml IVP 50 ml PER PROTOCOL PRN Administration Hypoglycemia Protocol Famotidine 20 mg 03/18/23 10:16 03/22/23 08:35 Famotidine 20 Mg Tab PO 20 mg DAILY FELA Administration Gabapentin 300 mg 03/18/23 09:00 03/22/23 08:35 Gabapentin 300 Mg Cap PO 300 mg TID FELA Administration Hydroxychloroquine Sulfate 200 mg 03/18/23 09:00 03/22/23 08:35 Hydroxychloroquine Sulfate 200 Mg Tab PO 200 mg BID FELA Administration Cefepime HCl 2 gm/ Sodium 100 mls @ 25 mls/hr 03/18/23 10:00 03/22/23 08:35 Chloride IVPB 25 mls/hr Q12HR FELA Administration Protocol Daptomycin 350 mg/ Sodium 50 mls @ 100 mls/hr 03/19/23 11:00 03/22/23 08:35 Chloride IVPB 100 mls/hr Q24HR FELA Administration Protocol Sodium Chloride 1,000 mls @ 50 mls/hr 03/19/23 13:30 03/22/23 00:27 Saline 0.9% IV 50 mls/hr .Q20H FELA Administration Insulin Aspart 0 unit 03/18/23 07:30 03/22/23 06:43 Insulin Aspart (Novolog) 100 Unit/Ml Vial SQ Not Given ACHS [facility] Protocol Insulin Aspart 35 unit 03/18/23 21:00 03/21/23 21:37 Insuln Asp Prt/Insulin Aspart 100 Unit/Ml 10 Ml Vial SQ 35 unit HS FELA Administration Levothyroxine Sodium 100 mcg 03/18/23 06:30 03/22/23 05:20 Levothyroxine 100 Mcg Tab PO 100 mcg DAILY@0630 FELA Administration Miscellaneous Information 0 each 03/18/23 02:21 Warfarin Per Pharmacy MISCELLANE DIRECTED PRN PER PROTOCOL Naloxone HCl 0.2 mg 03/17/23 12:38 Naloxone 0.4 Mg/Ml 1 Ml Vial IV Q2M PRN Opioid Reversal Ondansetron HCl 4 mg 03/17/23 12:38 Ondansetron 4 Mg/2 Ml Vial IVP Q8HR PRN Nausea And Vomiting Petrolatum 1 applic 03/19/23 10:15 03/22/23 08:46 Zinc Oxide Paste (Z-Guard) 1 Applic TOPICAL 1 applic DAILY [facility] Administration Protocol Senna 8.6 mg 03/17/23 23:28 Sennosides 8.6 Mg Tab PO BID PRN Constipation Intake and Output 03/21/23 03/22/23 03/22/23 22:59 06:59 14:59 Intake Total 0 Output Total 600 1000 Balance -600 -1000 Intake: Oral 0 Output: Urine 600 1000 Other: Voiding Method Urinal Urinal # Voids 1 03/20/23 06:37 03/20/23 06:37
[2023-03-22 11:50] LABS: Glucose,Whole Blood 118 mg/dL (70-110)
--- NOTE | 2023-03-22 12:33 | P.PN ---
Subjective Progress Note Date: 03/20/23 Principal diagnosis: Reason for follow-up is left foot wound and cellulitis This is a telehealth visit Patient is a 67-year-old male with a past medical his significant for diabetes mellitus hypertension hyperlipidemia hypothyroidism patient apparently did have left big toe amputation done previously and the patient has been following at [facility] patient has been sent to the ER concerning for worsening cellulitis and infection to the left heel and left forefront and second cellulitis. On today's evaluation that is 03/20/2023, the patient remains to be afebrile, the patient is breathing comfortably on 2 L nasal cannula oxygen the patient denies having any shortness of breath chest pain or cough,.Patient denies having any abdominal pain no nausea vomiting or any diarrhea. Denies pain to the left heel wound Patient white count is 8.8, creatinine is 1.91 CRP is 13.6 blood cultures so far pending blood cultures are pending Objective - Vital Signs Vital signs: Vital Signs Temp 98 F 03/19/23 23:11 Pulse 58 L 03/19/23 23:11 Resp 18 03/19/23 23:11 BP 124/60 03/19/23 23:11 Pulse Ox 98 03/20/23 09:00 FiO2 Intake & Output 03/19/23 03/20/23 03/20/23 18:59 06:59 18:59 Intake Total 180 540 240 Output Total 450 500 Balance 180 90 -260 Weight 111.13 kg Intake: Oral 180 540 240 Output: Urine 450 500 Other: Voiding Method Urinal Urinal # Voids 1 # Bowel Movements 1 0 - Exam Elderly male lying in bed in no distress Respiratory system unlabored breathing decreased breath sound the base Heart S1-S2 regular Abdominal soft no tenderness Left foot wound is currently dressed no drainage on the dressing Exam completed with the help of [employer] - Labs CBC & Chem 7: 03/20/23 06:37 03/20/23 06:37 Labs: Abnormal Lab Results - Last 24 Hours (Table) 03/19/23 03/19/23 03/19/23 Range/Units 09:57 09:57 11:30 RBC 3.88 L (4.30-5.90) m/uL Hgb 11.8 L (13.0-17.5) gm/dL Hct 34.3 L (39.0-53.0) % Plt Count (150-450) k/uL Neutrophils # 8.0 H (1.3-7.7) k/uL Lymphocytes # 0.4 L (1.0-4.8) k/uL Sodium 136 L (137-145) mmol/L BUN 36 H (9-20) mg/dL Creatinine 1.77 H (0.66-1.25) mg/dL Glucose 164 H (74-99) mg/dL POC Glucose (mg/dL) 218 H (70-110) mg/dL Calcium 7.8 L (8.4-10.2) mg/dL C-Reactive Protein 13.6 H (<1.0) mg/dL 03/19/23 03/19/23 03/19/23 Range/Units 13:10 16:43 20:20 RBC (4.30-5.90) m/uL Hgb (13.0-17.5) gm/dL Hct (39.0-53.0) % Plt Count (150-450) k/uL Neutrophils # (1.3-7.7) k/uL Lymphocytes # (1.0-4.8) k/uL Sodium (137-145) mmol/L BUN (9-20) mg/dL Creatinine (0.66-1.25) mg/dL Glucose (74-99) mg/dL POC Glucose (mg/dL) 241 H 254 H 329 H (70-110) mg/dL Calcium (8.4-10.2) mg/dL C-Reactive Protein (<1.0) mg/dL 03/20/23 03/20/23 Range/Units 06:02 06:37 RBC 3.49 L (4.30-5.90) m/uL Hgb 10.7 L (13.0-17.5) gm/dL Hct 30.4 L (39.0-53.0) % Plt Count 142 L (150-450) k/uL Neutrophils # (1.3-7.7) k/uL Lymphocytes # 0.5 L (1.0-4.8) k/uL Sodium (137-145) mmol/L BUN (9-20) mg/dL Creatinine (0.66-1.25) mg/dL Glucose (74-99) mg/dL POC Glucose (mg/dL) 161 H (70-110) mg/dL Calcium (8.4-10.2) mg/dL C-Reactive Protein (<1.0) mg/dL Microbiology - Last 24 Hours (Table) 03/19/23 04:40 Gram Stain - Preliminary Foot - Left 03/17/23 11:30 Blood Culture - Preliminary Blood 03/17/23 11:43 Blood Culture - Preliminary Blood Assessment and Plan (1) Cellulitis of left foot Current Visit: Yes Status: Acute Code(s): L03.116 - CELLULITIS OF LEFT LOWER LIMB SNOMED Code(s): 86165883960328757 (2) Penicillin allergy Current Visit: Yes Status: Acute Code(s): Z88.0 - ALLERGY STATUS TO PENICILLIN SNOMED Code(s): 97489762 (3) Pressure injury of left heel, stage 2 Current Visit: Yes Status: Acute Code(s): L89.622 - PRESSURE ULCER OF LEFT HEEL, STAGE 2 SNOMED Code(s): 27981888887759 (4) Type 2 diabetes mellitus with other skin ulcer Current Visit: Yes Status: Acute Code(s): E11.622 - TYPE 2 DIABETES MELLITUS WITH OTHER SKIN ULCER; L98.499 - NON-PRESSURE CHRONIC ULCER OF SKIN OF SITES W UNSP SEVERITY SNOMED Code(s): 175877476 Plan: 1patient presented to hospital with left foot nonhealing wound in this patient who do have underlying history of diabetes mellitus and the patient did have a previous left big toe amputation and wound to the right foot at the base of the first metatarsal and also wound to the right heel concerning for secondary cellulitis 2-penicillin allergy that will limit the number of antibiotics safe to use 3-patient did have renal insufficiency high risk of nephrotoxicity from vancomycin 4-currently waiting for vascular surgery evaluation for possible debridement and deep culture, scheduled for this afternoon 5-patient to continue with cefepime and daptomycin while waiting for the culture and monitor clinical course closely Dictation was produced using Touchbase dictation software. please excuse any grammatical, word or spelling errors. Time with Patient: Less than 30
--- NOTE | 2023-03-22 12:35 | P.PN ---
Subjective Progress Note Date: 03/21/23 Principal diagnosis: Reason for follow-up is left foot wound and cellulitis This is a telehealth visit Patient is a 67-year-old male with a past medical his significant for diabetes mellitus hypertension hyperlipidemia hypothyroidism patient apparently did have left big toe amputation done previously and the patient has been following at [facility] [place] patient has been sent to the ER concerning for worsening cellulitis and infection to the left heel and left forefront and second cellulitis. On today's evaluation that is 03/21/2023, the patient continues to be afebrile, the patient is breathing comfortably on 2 L nasal cannula oxygen the patient denies chest pain y shortness of breath or cough,, no new symptoms patient denies having any abdominal pain no nausea vomiting or any diarrhea. Denies pain to the left heel wound Patient white count is 8.8, creatinine is 1.91 as of yesterday no lab draw today CRP is 13.6 blood cultures so far pending Objective - Vital Signs Vital signs: Vital Signs Temp 98.8 F 03/21/23 15:00 Pulse 95 03/21/23 15:00 Resp 16 03/21/23 15:00 BP 135/63 03/21/23 15:00 Pulse Ox 97 03/21/23 15:00 FiO2 Intake & Output 03/20/23 03/21/23 03/21/23 18:59 06:59 18:59 Intake Total 790 468 Output Total 500 500 600 Balance 290 -500 -132 Intake: Intake, IV Titration 550 350 Amount Cefepime 2 gm In Sodium 100 100 Chloride 0.9% 100 ml @ 25 mls/hr IVPB Q12HR [facility] Rx #:[id number] DAPTOmycin 350 mg In 50 50 Sodium Chloride 0.9% 50 ml @ 100 mls/hr IVPB Q24HR [facility]A Rx#:[id number] Sodium Chloride 0.9% 1, 400 200 000 ml @ 50 mls/hr IV . Q20H [facility] Rx#:[id number] Oral 240 118 Output: Urine 500 500 600 Other: Voiding Method Urinal Urinal # Voids 1 1 - Exam Elderly male lying in bed in no distress Respiratory system unlabored breathing decreased breath sound the base Heart S1-S2 regular Abdominal soft no tenderness Left foot wound is currently dressed no drainage on the dressing Exam completed with the help of [employer] - Labs CBC & Chem 7: 03/20/23 06:37 03/20/23 06:37 Labs: Abnormal Lab Results - Last 24 Hours (Table) 03/20/23 03/21/23 03/21/23 Range/Units 19:59 06:02 06:37 PT (10.0-12.5) sec INR (<1.2) POC Glucose (mg/dL) 140 H 49 L 149 H (70-110) mg/dL 03/21/23 03/21/23 03/21/23 Range/Units 07:19 11:29 16:17 PT 15.1 H (10.0-12.5) sec INR 1.5 H (<1.2) POC Glucose (mg/dL) 112 H 162 H (70-110) mg/dL Microbiology - Last 24 Hours (Table) 03/19/23 04:40 Gram Stain - Final Foot - Left Wound Culture - Final Pseudomonas aeruginosa Strep agalactiae - (group b) 03/20/23 11:03 Gram Stain - Preliminary Heel - Left 03/17/23 11:30 Blood Culture - Preliminary Blood 03/17/23 11:43 Blood Culture - Preliminary Blood Assessment and Plan (1) Cellulitis of left foot Current Visit: Yes Status: Acute Code(s): L03.116 - CELLULITIS OF LEFT LOWER LIMB SNOMED Code(s): 81383909964918778 (2) Penicillin allergy Current Visit: Yes Status: Acute Code(s): Z88.0 - ALLERGY STATUS TO PENICILLIN SNOMED Code(s): 64931181 (3) Pressure injury of left heel, stage 2 Current Visit: Yes Status: Acute Code(s): L89.622 - PRESSURE ULCER OF LEFT HEEL, STAGE 2 SNOMED Code(s): 61183305494897 (4) Type 2 diabetes mellitus with other skin ulcer Current Visit: Yes Status: Acute Code(s): E11.622 - TYPE 2 DIABETES MELLITUS WITH OTHER SKIN ULCER; L98.499 - NON-PRESSURE CHRONIC ULCER OF SKIN OF SITES W UNSP SEVERITY SNOMED Code(s): 307844428 Plan: 1patient presented to hospital with left foot nonhealing wound in this patient who do have underlying history of diabetes mellitus and the patient did have a previous left big toe amputation and wound to the right foot at the base of the first metatarsal and also wound to the right heel concerning for secondary cellulitis 2-penicillin allergy that will limit the number of antibiotics safe to use 3-patient did have renal insufficiency high risk of nephrotoxicity from vancomycin 4-patient is status post iting for vascular surgery evaluation and debridement a 5-patient to continue with cefepime and daptomycin and monitor clinical course closely Dictation was produced using Dome[employer] dictation software. please excuse any grammatical, word or spelling errors. Time with Patient: Less than 30
--- NOTE | 2023-03-22 12:42 | P.PN ---
Subjective Progress Note Date: 03/22/23 Principal diagnosis: Reason for follow-up is left foot wound and cellulitis Patient is a 67-year-old male with a past medical his significant for diabetes mellitus hypertension hyperlipidemia hypothyroidism patient apparently did have left big toe amputation done previously and the patient has been following at [facility] [place] patient has been sent to the ER concerning for worsening cellulitis and infection to the left heel and left forefront and second cellulitis. On today's evaluation that is 03/22/2023, the patient remains to be afebrile, the patient is breathing comfortably on 2 L nasal cannula oxygen the patient denies chest pain, shortness of breath or cough, patient denies having any abdominal pain no nausea vomiting or any diarrhea. The patient denies pain to the left heel wound Patient white count is 8.8, creatinine is 1.91 as of 03/20/2023, INR is 2.5 CRP is 13.6 blood cultures negative local culture positive for Pseudomonas and strep Objective - Vital Signs Vital signs: Vital Signs Temp 98.4 F 03/22/23 08:00 Pulse 76 03/22/23 08:00 Resp 18 03/22/23 08:00 BP 156/81 03/22/23 08:00 Pulse Ox 97 03/22/23 08:58 FiO2 Intake & Output 03/21/23 03/22/23 03/22/23 18:59 06:59 18:59 Intake Total 468 Output Total 600 1000 Balance -132 -1000 Intake: Intake, IV Titration 350 Amount Cefepime 2 gm In Sodium 100 Chloride 0.9% 100 ml @ 25 mls/hr IVPB Q12HR [facility] Rx #:[id number] DAPTOmycin 350 mg In 50 Sodium Chloride 0.9% 50 ml @ 100 mls/hr IVPB Q24HR [facility]A Rx#:[id number] Sodium Chloride 0.9% 1, 200 000 ml @ 50 mls/hr IV . Q20H [facility]A Rx#:[id number] Oral 118 Output: Urine 600 1000 Other: Voiding Method Urinal Urinal Urinal # Voids 1 - Exam GENERAL DESCRIPTION: An elderly male lying in bed in no distress RESPIRATORY SYSTEM: Unlabored breathing , decreased breath sounds at bases HEART: S1 S2 regular rate and rhythm , ABDOMEN: Soft , no tenderness EXTREMITIES: Right posterior heel with a wound with minimal slough tissue no surrounding redness ulcer wound on the plantar aspect of the right foot at the base of the first metatarsal with no redness patient also have some blisters to the right foot toes but no redness - Labs CBC & Chem 7: 03/20/23 06:37 03/20/23 06:37 Labs: Abnormal Lab Results - Last 24 Hours (Table) 03/21/23 03/21/23 03/22/23 Range/Units 16:17 20:08 09:13 PT 24.5 H (10.0-12.5) sec INR 2.5 H (<1.2) POC Glucose (mg/dL) 162 H 188 H (70-110) mg/dL 03/22/23 Range/Units 11:48 PT (10.0-12.5) sec INR (<1.2) POC Glucose (mg/dL) 118 H (70-110) mg/dL Microbiology - Last 24 Hours (Table) 03/19/23 04:40 Gram Stain - Final Foot - Left Wound Culture - Final Pseudomonas aeruginosa Strep agalactiae - (group b) 03/20/23 11:03 Gram Stain - Preliminary Heel - Left Assessment and Plan (1) Cellulitis of left foot Current Visit: Yes Status: Acute Code(s): L03.116 - CELLULITIS OF LEFT LOWER LIMB SNOMED Code(s): 91494503794045548 (2) Penicillin allergy Current Visit: Yes Status: Acute Code(s): Z88.0 - ALLERGY STATUS TO PENICILLIN SNOMED Code(s): 67416165 (3) Pressure injury of left heel, stage 2 Current Visit: Yes Status: Acute Code(s): L89.622 - PRESSURE ULCER OF LEFT HEEL, STAGE 2 SNOMED Code(s): 16744183260151 (4) Type 2 diabetes mellitus with other skin ulcer Current Visit: Yes Status: Acute Code(s): E11.622 - TYPE 2 DIABETES MELLITUS WITH OTHER SKIN ULCER; L98.499 - NON-PRESSURE CHRONIC ULCER OF SKIN OF SITES W UNSP SEVERITY SNOMED Code(s): 686357253 Plan: 1patient presented to hospital with left foot nonhealing wound in this patient who do have underlying history of diabetes mellitus and the patient did have a previous left big toe amputation and wound to the right foot at the base of the first metatarsal and also wound to the right heel concerning for secondary cellulitis 2-penicillin allergy that will limit the number of antibiotics safe to use 3-patient is status post vascular surgery evaluation and debridement 5-patient local culture growing Pseudomonas and strep, patient to continue with cefepime will daptomycin, may need short course of IV cefepime as unable to use Cipro because the patient is on Plaquenil Dictation was produced using [email or web address] dictation software. please excuse any grammatical, word or spelling errors. Time with Patient: Less than 30
--- NOTE | 2023-03-22 13:16 | CA ---
Transthoracic Echo Report Name: James Clark Age: 67 Gender: M : 1955 Exam Date: 03/22/2023 12:32 Exam Location: [facility] Ht (in): 70 Wt (lb): 245 Ordering Physician: Joann Alfonso Attending/Referring Phys: [id number], Naty [employer] Analyst Andrew Norwood RDCS Procedure CPT: Indications: LVF Cardiac Hx: Technical Quality: Technically difficult study Contrast 1: Total Dose (mL): Contrast 2: Total Dose (mL): MEASUREMENTS (Male / Female) Normal Values 2D ECHO LV Diastolic Diameter PLAX 5.4 cm 4.2 - 5.9 / 3.9 - 5.3 cm LV Systolic Diameter PLAX 4.3 cm IVS Diastolic Thickness 1.2 cm 0.6 - 1.0 / 0.6 - 0.9 cm LVPW Diastolic Thickness 1.2 cm 0.6 - 1.0 / 0.6 - 0.9 cm LV Relative Wall Thickness 0.4 RV Internal Dim ED PLAX 2.6 cm LVOT Diameter 2.1 cm Aortic Root Diameter 3.3 cm LA Systolic Diameter LX 3.3 cm 3.0 - 4.0 / 2.7 - 3.8 cm LV Diastolic Volume MOD 4C 97.6 cm??? LV Systolic Volume MOD 4C 61.3 cm??? LV Ejection Fraction MOD 4C 37.2 % LV Cardiac Index MOD 4C 1141.4 cm???/min???m??? LV Diastolic Length 4C 8.2 cm LV Systolic Length 4C 8.0 cm LA Volume 50.5 cm??? 18 - 58 / 22 - 52 cm??? LA Volume Index 21.2 cm???/m??? 16 - 28 cm???/m??? DOPPLER AV Peak Velocity 122.4 cm/s AV Peak Gradient 6.0 mmHg AV Mean Velocity 87.8 cm/s AV Mean Gradient 3.5 mmHg AV Velocity Time Integral 25.5 cm LVOT Peak Velocity 72.8 cm/s LVOT Peak Gradient 2.1 mmHg LVOT Velocity Time Integral 13.7 cm LVOT Stroke Volume 47.3 cm??? LVOT Stroke Volume Index 20.8 ml/m??? LVOT Cardiac Index 1489.0 cm???/min???m??? AV Area Cont Eq vti 1.9 cm??? AV Area Cont Eq pk 2.1 cm??? MV Peak Velocity 110.1 cm/s MV Peak Gradient 4.8 mmHg MV Mean Velocity 46.3 cm/s MV Mean Gradient 1.1 mmHg MV Velocity Time Integral 36.5 cm Mitral E Point Velocity 93.2 cm/s Mitral A Point Velocity 55.7 cm/s Mitral E to A Ratio 1.7 MV Deceleration Time 116.9 ms MV E' Velocity 4.9 cm/s Mitral E to MV E' Ratio 18.9 TR Peak Velocity 206.9 cm/s TR Peak Gradient 17.1 mmHg Right Ventricular Systolic Press 22.1 mmHg PV Peak Velocity 86.5 cm/s PV Peak Gradient 3.0 mmHg FINDINGS Left Ventricle Normal LV size. Mild concentric LVH. Basal septal akinesis. Global LV impairment. Left ventricular ejection fraction is estimated at 20-25 %. Right Ventricle Normal right ventricular size. Right Atrium Normal right atrial size. Left Atrium Normal left atrial size. Mitral Valve Aortic Valve Mild AV calcification. No aortic stenosis. No aortic regurgitation. Tricuspid Valve Structurally normal tricuspid valve. Trace TR. Pulmonic Valve Pulmonic valve not well visualized. No pulmonic regurgitation. Pericardium Not visualized well. Aorta Normal size aortic root. CONCLUSIONS Limited Echo LVEF estimated at 20-25% Severe LV systolic dysfunction Mild concentric LVH Anterior and anteroseptal wall hypokinesia No pericardial effusion Previewed by: Dr Lester Camejo (Electronically Signed) Final Date: 22 March 2023 13:15
--- NOTE | 2023-03-22 16:10 | P.PN ---
Subjective Patient is a 67-year-old male with a past medical history of coronary artery disease status post CABG, and stent placement, hypertension, diabetes type 2 insulin-dependent, hypothyroidism and prior history of compression of the right middle toe presents to ER with the complaints of left foot ulcer below the great toe. Patient does have history of peripheral neuropathy. Patient denies any purulent discharge. No fever no chills. No chest pain or shortness of breath. No nausea vomiting abdominal pain or diarrhea X-ray of the foot showed previous great toe amputation with soft tissue wound at the amputation stump. No overt findings of contiguous osteomyelitis or bony destruction at this time. Laboratory data showed WBC 11.3, hemoglobin 13.5 and platelets 229 Sodium 134 potassium 4.1 chloride 99 bicarb is 25 BUN 52 and creatinine 2.03 Blood sugar 296 and CRP 4.5. 03/18/2023 Patient is currently lying in the bed. Awake alert and oriented. Requiring 2 L oxygen via nasal cannula. Patient has been afebrile. Otherwise patient was hypoglycemic this morning. Was given IV push dextrose and also started on D5 half-normal saline. Insulin dose reduced to 35 units Levemir at bedtime. INR level is 6.05 today. Coumadin is on hold. Other laboratory showed WBC 10.7 hemoglobin 12.0 and platelets 194 BUN 46 and creatinine 2.06 and calcium 8.5. I A1c level is 9.1 Patient is being continued on antibiotics cefepime And daptomycin. 03/19/2023 Patient is resting in bed. Awake alert and oriented x 3. No complaints of chest pain or shortness of air. No headache or dizziness. Patient was noted to have right eye injection/redness. Due to supratherapeutic INR level CT head was ordered to rule out any intracranial bleed which is negative. Otherwise patient has been afebrile. Remains on antibiotics with daptomycin and cefepime as per ID recommendations. Coumadin is on hold. Patient is being current on IV hydration. Blood sugar readings BUN started on insulin regimen. Laboratory data showed WBC improved to 9.6 hemoglobin 11.8 and platelets 155 Sodium 136 potassium 3.5 chloride 104 bicarb is 29 BUN 36 and creatinine 1.77 and blood sugar 164. CRP 13.6. 03/20/2023 Patient admitted with infected diabetic ulcers with surrounding cellulitis more of the left side and he underwent debridement of his left foot today by vascular surgery team. Wound cultures pending Patient currently remains on daptomycin and cefepime He is on Coumadin at home and he states is been taking more than a year and he follows up with Dr. Palomino but he doesn't know why he takes the Coumadin, he doesn't know if he had a clot before in his legs or lungs. He currently does not follow up with street car mechanic as an outpatient History is that he takes 5 mg at 7.5 mg at home alternatively. 03/21/2023 Patient clinically doing well He never had pain in his feet Dressing was changed yesterday with Dr. Galindo and looks good. His INR today 1.5 Patient wants to go home once once cultures back. 1 culture is growing gram-negative bacilli pending final results Patient remains on daptomycin and cefepime and warfarin 03/22/2023 Patient lying in bed with no chest pain or dyspnea History of cellulitis of the lower extremity and dressing is in a Place, patient currently covered with daptomycin and IV cefepime ID team on the case with the plan on IV antibiotics for discharge is one of the possibility given patient cannot get Cipro while he is on plaqunil Patient yesterday developed A. fib NFO, cardiology team were consulted, I discussed the case with street car mechanic team They recommended to continue with Coumadin, INR is therapeutic level today 2.5 Echocardiogram showing cardiomyopathy with ejection fraction 20-25% and anterior wall hypokinesia Review of systems CONSTITUTIONAL: No fever, no malaise, no fatigue. HEENT: No recent visual problems or hearing problems. Denied any sore throat. CARDIOVASCULAR: No orthopnea, PND, no palpitations, no syncope. PULMONARY: No shortness of breath, no cough, no hemoptysis. GASTROINTESTINAL: No diarrhea, no nausea, no vomiting, no abdominal pain. Normoactive bowel sounds. NEUROLOGICAL: No headaches, no weakness, no numbness. Active Medications Generic Name Dose Route Start Last Admin Trade Name Freq PRN Reason Stop Dose Admin Acetaminophen 650 mg 03/17/23 12:38 Acetaminophen Tab 325 Mg Tab PO Q6HR PRN Mild Pain or Fever > 100.5 Hydrocodone Bitart/Acetaminophen 1 each 03/17/23 12:38 03/20/23 21:14 Hydrocodone/Apap 5-325mg 1 Each Tab PO 1 each Q4HR PRN Administration Moderate Pain (Scale 4 to 6) Amlodipine Besylate 5 mg 03/17/23 23:30 03/22/23 08:35 Amlodipine 5 Mg Tab PO 5 mg BID FELA Administration Atorvastatin Calcium 10 mg 03/18/23 09:00 03/22/23 08:35 Atorvastatin 10 Mg Tab PO 10 mg DAILY FELA Administration Balsalazide 2,250 mg 03/18/23 09:00 03/22/23 08:35 Balsalazide Disodium 750 Mg Capsule PO 2,250 mg TID FELA Administration Carvedilol 6.25 mg 03/17/23 23:30 03/22/23 08:35 Carvedilol 6.25 Mg Tab PO 6.25 mg BID FELA Administration Dextrose/Water 25 ml 03/17/23 23:30 03/21/23 06:06 Dextrose 50% Syringe 50 Ml IVP 25 ml PER PROTOCOL PRN Administration Hypoglycemia Protocol Dextrose/Water 50 ml 03/17/23 23:30 03/18/23 11:14 Dextrose 50% Syringe 50 Ml IVP 50 ml PER PROTOCOL PRN Administration Hypoglycemia Protocol Famotidine 20 mg 03/18/23 10:16 03/22/23 08:35 Famotidine 20 Mg Tab PO 20 mg DAILY FELA Administration Gabapentin 300 mg 03/18/23 09:00 03/22/23 08:35 Gabapentin 300 Mg Cap PO 300 mg TID FELA Administration Hydroxychloroquine Sulfate 200 mg 03/18/23 09:00 03/22/23 08:35 Hydroxychloroquine Sulfate 200 Mg Tab PO 200 mg BID FELA Administration Cefepime HCl 2 gm/ Sodium 100 mls @ 25 mls/hr 03/18/23 10:00 03/22/23 08:35 Chloride IVPB 25 mls/hr Q12HR FELA Administration Protocol Sodium Chloride 1,000 mls @ 50 mls/hr 03/19/23 13:30 03/22/23 00:27 Saline 0.9% IV 50 mls/hr .Q20H FELA Administration Insulin Aspart 0 unit 03/18/23 07:30 03/22/23 11:57 Insulin Aspart (Novolog) 100 Unit/Ml Vial SQ Not Given ACHS FELA Protocol Insulin Aspart 35 unit 03/18/23 21:00 03/21/23 21:37 Insuln Asp Prt/Insulin Aspart 100 Unit/Ml 10 Ml Vial SQ 35 unit HS FELA Administration Levothyroxine Sodium 100 mcg 03/18/23 06:30 03/22/23 05:20 Levothyroxine 100 Mcg Tab PO 100 mcg DAILY@0630 [facility] Administration Miscellaneous Information 0 each 03/18/23 02:21 Warfarin Per Pharmacy MISCELLANE DIRECTED PRN PER PROTOCOL Naloxone HCl 0.2 mg 03/17/23 12:38 Naloxone 0.4 Mg/Ml 1 Ml Vial IV Q2M PRN Opioid Reversal Ondansetron HCl 4 mg 03/17/23 12:38 Ondansetron 4 Mg/2 Ml Vial IVP Q8HR PRN Nausea And Vomiting Petrolatum 1 applic 03/19/23 10:15 03/22/23 08:46 Zinc Oxide Paste (Z-Guard) 1 Applic TOPICAL 1 applic DAILY [facility] Administration Protocol Senna 8.6 mg 03/17/23 23:28 Sennosides 8.6 Mg Tab PO BID PRN Constipation Warfarin Sodium 5 mg 03/22/23 18:00 Warfarin 5 Mg Tab PO 03/22/23 18:01 ONCE@1800 ONE Objective - Vital Signs Vital signs: Vital Signs Temp 98.4 F 03/22/23 08:00 Pulse 76 03/22/23 08:00 Resp 18 03/22/23 08:00 BP 156/81 03/22/23 08:00 Pulse Ox 97 03/22/23 08:58 FiO2 Intake & Output 03/21/23 03/22/23 03/22/23 18:59 06:59 18:59 Intake Total 468 Output Total 600 1000 Balance -132 -1000 Intake: Intake, IV Titration 350 Amount Cefepime 2 gm In Sodium 100 Chloride 0.9% 100 ml @ 25 mls/hr IVPB Q12HR [facility] Rx #:[id number] DAPTOmycin 350 mg In 50 Sodium Chloride 0.9% 50 ml @ 100 mls/hr IVPB Q24HR [facility] Rx#:[id number] Sodium Chloride 0.9% 1, 200 000 ml @ 50 mls/hr IV . Q20H [facility] Rx#:[id number] Oral 118 Output: Urine 600 1000 Other: Voiding Method Urinal Urinal Urinal # Voids 1 - Exam GENERAL: The patient is alert and oriented x3, not in any acute distress. Well developed, well nourished. HEENT: Pupils are round and equally reacting to light. EOMI. No scleral icterus. No conjunctival pallor. Normocephalic, atraumatic. No pharyngeal erythema. No thyromegaly. CARDIOVASCULAR: S1 and S2 present. No murmurs, rubs, or gallops. PULMONARY: Chest is clear to auscultation, no wheezing , no crackles. ABDOMEN: Soft, nontender, nondistended, normoactive bowel sounds. No palpable organomegaly. MUSCULOSKELETAL: No joint swelling or deformity. -EXTREMITIES: No cyanosis, clubbing, or pedal edema. Bilateral feet in a dressi ng, left foot surgical wound was dressed in a Place NEUROLOGICAL: Gross neurological examination did not reveal any focal deficits. SKIN: No rashes. no petechiae. - Labs CBC & Chem 7: 03/20/23 06:37 03/20/23 06:37 Labs: Abnormal Lab Results - Last 24 Hours (Table) 03/21/23 03/21/23 03/21/23 Range/Units 11:29 16:17 20:08 PT (10.0-12.5) sec INR (<1.2) POC Glucose (mg/dL) 112 H 162 H 188 H (70-110) mg/dL 03/22/23 Range/Units 09:13 PT 24.5 H (10.0-12.5) sec INR 2.5 H (<1.2) POC Glucose (mg/dL) (70-110) mg/dL Microbiology - Last 24 Hours (Table) 03/19/23 04:40 Gram Stain - Final Foot - Left Wound Culture - Final Pseudomonas aeruginosa Strep agalactiae - (group b) 03/20/23 11:03 Gram Stain - Preliminary Heel - Left Assessment and Plan Assessment: Left diabetic foot ulcer on the plantar surface at the amputation of the great toe site reinspected status post I&D on 03/20 Cardiomyopathy with ejection fraction 20-25% with possible ischemia and anterior wall hypokinesia Atrial fibrillation/flutter, currently on Coumadin. Acute kidney injury with prior history of CKD stage III. Baseline creatinine level 1.3-1.8 creatinine on admission 2.03. 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 Coronary artery disease with history of CABG and stent placement supratherapeutic INR level Long-term anticoagulation with Coumadin etiology not known. History of ulcerative colitis Hypothyroidism Medication noncompliance History of constipation Hyperlipidemia Plan: Continue with daptomycin and cefepime Infectious disease consult Discharge planning on antibiotic as per ID team Cardiology team consult for A. fib with cardiomyopathy ejection fraction 25% Labs and medication were reviewed.. Continue same treatment. Continue with symptomatic treatment. Resume home medication. Monitor labs and vitals. DVT and GI prophylaxis. Further recommendations as per clinical course of the patient DVT prophylaxis: On warfarin GI Prophylaxis: Pepcid PT/OT: Pending Prognosis is guarded
[2023-03-22 16:21] LABS: Glucose,Whole Blood 131 mg/dL (70-110)
[2023-03-22] MEDS: WARFARIN 5 MG TAB PO ONE (17:23)
--- NOTE | 2023-03-22 18:00 | CDI ---
Documentation Clarification Form Date: 03/22/2023 05:46:29 PM From: Guerline Humphries Phone: [phone] Admit Date: 03/17/2023 01:03:00 PM Patient Name: James Clark Visit Number: [id number] Discharge Date: ATTENTION: The Clinical Documentation Specialists (CDI) and [facility] Coding Staff appreciate your assistance in clarifying documentation. Please respond to the clarification below the line at the bottom and electronically sign. The CDI & [facility] Coding staff will review the response and follow-up if needed. Please note: Queries are made part of the Legal Health Record. If you have any questions, please contact the author of this message via ITS. Dr. Luis Alberto Montesinos debridement is documented 03/20, procedure note. Additional clarification regarding the procedure is requested. History/Risk Factors:67 y/o M presents to ED with a left foot ulcer. Medical history: Insulin dependent DM2, HTN and previous left great toe amputation with soft tissue wound as the amputation stump. 03/17, H&P. Clinical Indicators: 03/20 Procedure: Preoperative diagnosis: Diabetic foot ulcer on the left heel measurement is 1 x 2cm Postoperative diagnosis: Post debridement measurement 1 x 2 x 0.5cm Procedure Using a knife we did the debridment down to subcutaneous tissue from left heel. The tissue was sent for deep culture Treatment: Debridement of left heel diabetic foot Please clarify the type of procedure performed: [ ] Excisional debridement (the removal of necrotic, devitalized tissue or slough by means of cutting away of tissue) [ ] Non-excisional debridement (the removal of necrotic, devitalized tissue or slough by means of flushing, brushing, or washing. (Irrigation) [ ] Other; please specify [ ] Unable to determine Five elements required for accurate and compliant documentation of a debridement: Technique used (e.g., excisional, excised, cutting, brushing, jet lavage etc.) Instrument(s) used (e.g., scalpel, curette, etc.) Nature of the tissue removed (e.g., necrotic, devitalized tissues, non-viable tissue, etc.) Appearance and size of the wound (e.g., down to fresh bleeding tissue, 7cm x 10cm, etc.) Depth of the debridement* (e.g., skin, subcutaneous tissue, fascia, muscle, bone, etc.) (Template Last Revised: April 2020) MTDD
[2023-03-22 20:17] LABS: Glucose,Whole Blood 153 mg/dL (70-110)
[2023-03-23 06:24] LABS: Glucose,Whole Blood 161 mg/dL (70-110)
[2023-03-23 07:48] LABS: INR 2.7 (<1.2); Prothrombin Time 26.3 sec (10.0-12.5)
[2023-03-23 11:36] LABS: Glucose,Whole Blood 175 mg/dL (70-110)
--- NOTE | 2023-03-23 14:10 | P.PN ---
Subjective Patient is a 67-year-old male with a past medical history of coronary artery disease status post CABG, and stent placement, hypertension, diabetes type 2 insulin-dependent, hypothyroidism and prior history of compression of the right middle toe presents to ER with the complaints of left foot ulcer below the great toe. Patient does have history of peripheral neuropathy. Patient denies any purulent discharge. No fever no chills. No chest pain or shortness of breath. No nausea vomiting abdominal pain or diarrhea X-ray of the foot showed previous great toe amputation with soft tissue wound at the amputation stump. No overt findings of contiguous osteomyelitis or bony destruction at this time. Laboratory data showed WBC 11.3, hemoglobin 13.5 and platelets 229 Sodium 134 potassium 4.1 chloride 99 bicarb is 25 BUN 52 and creatinine 2.03 Blood sugar 296 and CRP 4.5. 03/18/2023 Patient is currently lying in the bed. Awake alert and oriented. Requiring 2 L oxygen via nasal cannula. Patient has been afebrile. Otherwise patient was hypoglycemic this morning. Was given IV push dextrose and also started on D5 half-normal saline. Insulin dose reduced to 35 units Levemir at bedtime. INR level is 6.05 today. Coumadin is on hold. Other laboratory showed WBC 10.7 hemoglobin 12.0 and platelets 194 BUN 46 and creatinine 2.06 and calcium 8.5. I A1c level is 9.1 Patient is being continued on antibiotics cefepime And daptomycin. 03/19/2023 Patient is resting in bed. Awake alert and oriented x 3. No complaints of chest pain or shortness of air. No headache or dizziness. Patient was noted to have right eye injection/redness. Due to supratherapeutic INR level CT head was ordered to rule out any intracranial bleed which is negative. Otherwise patient has been afebrile. Remains on antibiotics with daptomycin and cefepime as per ID recommendations. Coumadin is on hold. Patient is being current on IV hydration. Blood sugar readings BUN started on insulin regimen. Laboratory data showed WBC improved to 9.6 hemoglobin 11.8 and platelets 155 Sodium 136 potassium 3.5 chloride 104 bicarb is 29 BUN 36 and creatinine 1.77 and blood sugar 164. CRP 13.6. 03/20/2023 Patient admitted with infected diabetic ulcers with surrounding cellulitis more of the left side and he underwent debridement of his left foot today by vascular surgery team. Wound cultures pending Patient currently remains on daptomycin and cefepime He is on Coumadin at home and he states is been taking more than a year and he follows up with Dr. Palomino but he doesn't know why he takes the Coumadin, he doesn't know if he had a clot before in his legs or lungs. He currently does not follow up with solar mechanical engineer as an outpatient History is that he takes 5 mg at 7.5 mg at home alternatively. 03/21/2023 Patient clinically doing well He never had pain in his feet Dressing was changed yesterday with Dr. Galindo and looks good. His INR today 1.5 Patient wants to go home once once cultures back. 1 culture is growing gram-negative bacilli pending final results Patient remains on daptomycin and cefepime and warfarin 03/22/2023 Patient lying in bed with no chest pain or dyspnea History of cellulitis of the lower extremity and dressing is in a Place, patient currently covered with daptomycin and IV cefepime ID team on the case with the plan on IV antibiotics for discharge is one of the possibility given patient cannot get Cipro while he is on plaqunil Patient yesterday developed A. fib NFO, cardiology team were consulted, I discussed the case with solar mechanical engineer team They recommended to continue with Coumadin, INR is therapeutic level today 2.5 Echocardiogram showing cardiomyopathy with ejection fraction 20-25% and anterior wall hypokinesia 03/23/2023 Patient is clinically doing well, no new complaint not chest pain or dyspnea Cellulitis of the left foot is also improving. Echocardiogram done showing ejection fraction 20-25%. Hair Colorist on the case. Patient is a A. fib with heart rate is controlled INR is therapeutic at 2.7 Midline was ordered today. Patient will be discharged on 7 more days of therapy Patient is medically stable for discharge pending prior authorization and placement Discussed case with the social media sr strategy manager. Objective - Vital Signs Vital signs: Vital Signs Temp 97.4 F L 03/23/23 08:00 Pulse 77 03/23/23 08:00 Resp 18 03/23/23 08:00 BP 175/89 03/23/23 08:00 Pulse Ox 99 03/23/23 08:00 FiO2 Intake & Output 03/22/23 03/23/23 03/23/23 18:59 06:59 18:59 Intake Total 560 Output Total 600 600 Balance -600 -40 Intake: Intake, IV Titration 200 Amount Sodium Chloride 0.9% 1, 200 000 ml @ 50 mls/hr IV . Q20H [facility] Rx#:[id number] Oral 360 Output: Urine 600 600 Other: Voiding Method Urinal Urinal Urinal # Voids 1 # Bowel Movements 1 - Exam GENERAL: The patient is alert and oriented x3, not in any acute distress. Well developed, well nourished. HEENT: Pupils are round and equally reacting to light. EOMI. No scleral icterus. No conjunctival pallor. Normocephalic, atraumatic. No pharyngeal erythema. No thyromegaly. CARDIOVASCULAR: S1 and S2 present. No murmurs, rubs, or gallops. PULMONARY: Chest is clear to auscultation, no wheezing , no crackles. ABDOMEN: Soft, nontender, nondistended, normoactive bowel sounds. No palpable organomegaly. MUSCULOSKELETAL: No joint swelling or deformity. -EXTREMITIES: No cyanosis, clubbing, or pedal edema. Bilateral feet in a dressing, left foot surgical wound was dressed in a Place NEUROLOGICAL: Gross neurological examination did not reveal any focal deficits. SKIN: No rashes. no petechiae. - Labs CBC & Chem 7: 03/20/23 06:37 03/20/23 06:37 Labs: Abnormal Lab Results - Last 24 Hours (Table) 03/22/23 03/22/23 03/23/23 Range/Units 16:19 20:13 06:22 PT (10.0-12.5) sec INR (<1.2) POC Glucose (mg/dL) 131 H 153 H 161 H (70-110) mg/dL 03/23/23 03/23/23 Range/Units 07:15 11:35 PT 26.3 H (10.0-12.5) sec INR 2.7 H (<1.2) POC Glucose (mg/dL) 175 H (70-110) mg/dL Microbiology - Last 24 Hours (Table) 03/19/23 04:40 Anaerobic Culture - Final Foot - Left Anaerobic Gm Negative Bacilli Anaerobic Gm Negative Bacilli#2 03/20/23 11:00 Anaerobic Culture - Preliminary Foot - Left 03/20/23 11:03 Gram Stain - Preliminary Heel - Left Tissue Culture - Preliminary Staphylococcus species Yeast species 03/17/23 11:30 Blood Culture - Final Blood 03/17/23 11:43 Blood Culture - Final Blood Assessment and Plan Assessment: Left diabetic foot ulcer on the plantar surface at the amputation of the great toe site reinspected status post I&D on 03/20 Cardiomyopathy with ejection fraction 20-25% with possible ischemia and anterior wall hypokinesia Atrial fibrillation/flutter, currently on Coumadin. Acute kidney injury with prior history of CKD stage III. Baseline creatinine level 1.3-1.8 creatinine on admission 2.03. Hyperglycemia with uncontrolled diabetes type 2 insulin-dependent, A1c 9.1 Uncontrolled hypertension Prior history of right middle toe amputation due to diabetic foot ulc er/gangrene. Coronary artery disease with history of CABG and stent placement supratherapeutic INR level Long-term anticoagulation with Coumadin etiology not known. History of ulcerative colitis Hypothyroidism Medication noncompliance History of constipation Hyperlipidemia Plan: Midline was ordered today. Patient will be discharged on 7 more days of therapy with cefepime Continue with cefepime currently Infectious disease consult Discharge planning on antibiotic as per ID team Cardiology team consult for A. fib with cardiomyopathy ejection fraction 25% Labs and medication were reviewed.. Continue same treatment. Continue with symptomatic treatment. Resume home medication. Monitor labs and vitals. DVT and GI prophylaxis. Further recommendations as per clinical course of the patient DVT prophylaxis: On warfarin GI Prophylaxis: Pepcid PT/OT: ECF Prognosis is guarded patient medically stable for discharge pending placement
--- NOTE | 2023-03-23 15:56 | P.PN ---
Subjective Progress Note Date: 03/23/23 Consult reason: atrial fibrillation (new) History of present illness: History of present illness: This is a 67-year-old male patient previously seen by Dr. Burnham 01/24/2020 with past medical history of coronary artery disease status post CABG, hypertension, diabetes, dyslipidemia, hypothyroidism. We have been asked to evaluate the patient for new onset A-fib. Patient is unable to recall his past cardiac history. He may have been told that he had atrial fibrillation in the past. Patient is on Coumadin but cannot verbalize exactly why he is taking it. He states his PCP is taking care of all of his cardiac needs. It appears, patient converted into atrial fibrillation from a sinus rhythm and then into atrial flutter with heart rates controlled. Patient presented to hospital due to left diabetic foot ulcer status postdebridement, acute kidney injury with chronic kidney disease stage III and uncontrolled diabetes and uncontrolled. Patient d enies feeling any fluttering in his chest, no chest pain, no lightheadedness or dizziness. He is able to EKG 03/19 sinus bradycardia with first-degree block, 03/21 8 PM atrial fibrillation at 96 bpm. INR is 2.5. WBC 8.8, hemoglobin 10.7, platelet count 142. Sodium 133, potassium 3.4, BUN 32 creatinine 1.91. Hemoglobin A1c 9.1. Home cardiac medications: Amlodipine 5 mg twice daily, aspirin 81 mg daily, Coreg 6.25 mg twice daily, ferrous sulfate 3 to 25 mg daily, hydrochloric when 200 mg twice daily, losartan 25 mg daily, magnesium oxide 4 mg daily, simvastatin 20 mg warfarin 10 mg on Mondays and Fridays and 7.5 mg on other days. Patient is also on levothyroxine 1 mcg daily. 03/23 Patient is seen today in follow-up on the cardiac stepdown unit. Echocardiogram reveals EF of 20 to 25%, severe LV systolic dysfunction, mild concentric left ventricular hypertrophy, anterior and anterior septal wall hypokinesia. No pericardial effusion. Blood pressure 161/101, heart rate in the 70s. INR 2.7. Patient states that he is waiting to go to [facility]. Physical examination: Gen: This is a 67-year-old male resting bed appears to be in no acute distress. VS: reviewed HEENT: Head is atraumatic, normocephalic. Pupils equal, round. Sclerae is anicteric. NECK: Supple. No JVD. . LUNGS: Clear to auscultation. No wheezes or rhonchi. No intercostal retractions. HEART: Regular rate and rhythm. No murmur. ABDOMEN: Soft No tenderness. EXTREMITIES: Min pedal edema. No calf tenderness. NEUROLOGICAL: Patient is awake, alert and oriented to person and place. Assessment: Atrial fibrillation/atrial flutter typical, paroxysmal Coronary artery disease status post CABG Hypertension Diabetes Dyslipidemia Hypothyroidism Diabetic foot ulcer status postdebridement Acute kidney injury, chronic kidney disease stage III Uncontrolled diabetes mellitus type 2 Hypercoagulopathy on presentation Plan: Continue patient's current cardiac medications Increase Coreg to 12.5 mg twice daily for blood pressure control Continue Coumadin, pharmacy is dosing Nurse practitioner note has been reviewed, I agree with documented findings and plan of care. Patient was seen and examined. Objective - Vital Signs Vital signs: Vital Signs Temp 97.4 F L 03/23/23 08:00 Pulse 77 03/23/23 08:00 Resp 18 03/23/23 08:00 BP 175/89 03/23/23 08:00 Pulse Ox 99 03/23/23 08:00 FiO2 Intake & Output 03/22/23 03/23/23 03/23/23 18:59 06:59 18:59 Intake Total 560 Output Total 600 600 Balance -600 -40 Intake: Intake, IV Titration 200 Amount Sodium Chloride 0.9% 1, 200 000 ml @ 50 mls/hr IV . Q20H [facility] Rx#:[id number] Oral 360 Output: Urine 600 600 Other: Voiding Method Urinal Urinal Urinal # Voids 1 # Bowel Movements 1 - Labs CBC & Chem 7: 03/20/23 06:37 03/20/23 06:37 Labs: Abnormal Lab Results - Last 24 Hours (Table) 03/22/23 03/22/23 03/23/23 Range/Units 16:19 20:13 06:22 PT (10.0-12.5) sec INR (<1.2) POC Glucose (mg/dL) 131 H 153 H 161 H (70-110) mg/dL 03/23/23 03/23/23 Range/Units 07:15 11:35 PT 26.3 H (10.0-12.5) sec INR 2.7 H (<1.2) POC Glucose (mg/dL) 175 H (70-110) mg/dL Microbiology - Last 24 Hours (Table) 03/19/23 04:40 Anaerobic Culture - Final Foot - Left Anaerobic Gm Negative Bacilli Anaerobic Gm Negative Bacilli#2 03/20/23 11:00 Anaerobic Culture - Preliminary Foot - Left 03/20/23 11:03 Gram Stain - Preliminary Heel - Left Tissue Culture - Preliminary Staphylococcus species Yeast species 03/17/23 11:30 Blood Culture - Final Blood 03/17/23 11:43 Blood Culture - Final Blood
[2023-03-23 16:36] LABS: Glucose,Whole Blood 162 mg/dL (70-110)
[2023-03-23] MEDS: carvediloL 6.25 MG TAB PO STA (17:17)
[2023-03-23] MEDS: WARFARIN 5 MG TAB PO ONE (17:17)
[2023-03-23 20:13] LABS: Glucose,Whole Blood 183 mg/dL (70-110)
[2023-03-23] MEDS: carvediloL 12.5 MG TAB PO SCH (22:33)
[2023-03-24 06:13] LABS: Glucose,Whole Blood 85 mg/dL (70-110)
[2023-03-24 09:00] LABS: INR 3.3 (<1.2); Prothrombin Time 32.2 sec (10.0-12.5)
[2023-03-24] MEDS: LOSARTAN 25 MG TAB PO SCH (10:55)
--- NOTE | 2023-03-24 10:58 | P.PN ---
Subjective Progress Note Date: 03/24/23 Consult reason: atrial fibrillation (new) History of present illness: History of present illness: This is a 67-year-old male patient previously seen by Dr. Burnham 01/24/2020 with past medical history of coronary artery disease status post CABG, hypertension, diabetes, dyslipidemia, hypothyroidism. We have been asked to evaluate the patient for new onset A-fib. Patient is unable to recall his past cardiac history. He may have been told that he had atrial fibrillation in the past. Patient is on Coumadin but cannot verbalize exactly why he is taking it. He states his PCP is taking care of all of his cardiac needs. It appears, patient converted into atrial fibrillation from a sinus rhythm and then into atrial flutter with heart rates controlled. Patient presented to hospital due to left diabetic foot ulcer status postdebridement, acute kidney injury with chronic kidney disease stage III and uncontrolled diabetes and uncontrolled. Patient d enies feeling any fluttering in his chest, no chest pain, no lightheadedness or dizziness. He is able to EKG 03/19 sinus bradycardia with first-degree block, 03/21 8 PM atrial fibrillation at 96 bpm. INR is 2.5. WBC 8.8, hemoglobin 10.7, platelet count 142. Sodium 133, potassium 3.4, BUN 32 creatinine 1.91. Hemoglobin A1c 9.1. Home cardiac medications: Amlodipine 5 mg twice daily, aspirin 81 mg daily, Coreg 6.25 mg twice daily, ferrous sulfate 3 to 25 mg daily, hydrochloric when 200 mg twice daily, losartan 25 mg daily, magnesium oxide 4 mg daily, simvastatin 20 mg warfarin 10 mg on Mondays and Fridays and 7.5 mg on other days. Patient is also on levothyroxine 1 mcg daily. 03/23 Patient is seen today in follow-up on the cardiac stepdown unit. Echocardiogram reveals EF of 20 to 25%, severe LV systolic dysfunction, mild concentric left ventricular hypertrophy, anterior and anterior septal wall hypokinesia. No pericardial effusion. Blood pressure 161/101, heart rate in the 70s. INR 2.7. Patient states that he is waiting to go to [facility]. 03/24 Patient denies having any chest pain or shortness of breath. Heart rate is running in the 70s and blood pressure elevated at 165/96, pulse ox 96% on 2 L nasal cannula. INR is 3.3 and pharmacy is dosing. Patient was previously on l osartan which was said it was held at time of admission due to acute kidney injury. Patient states that he is waiting to go to [facility]. Physical examination: Gen: This is a 67-year-old male resting and appears to be in no acute distress. VS: reviewed HEENT: Head is atraumatic, normocephalic. Pupils equal, round. Sclerae is anicteric. NECK: Supple. No JVD. . LUNGS: Clear to auscultation. No wheezes or rhonchi. No intercostal retractions. HEART: Regular rate and rhythm. No murmur. ABDOMEN: Soft No tenderness. EXTREMITIES: Min pedal edema. No calf tenderness. NEUROLOGICAL: Patient is awake, alert and oriented to person and place. Assessment: Atrial fibrillation/atrial flutter typical, paroxysmal Coronary artery disease status post CABG Hypertension Diabetes Dyslipidemia Hypothyroidism Diabetic foot ulcer status postdebridement Acute kidney injury, chronic kidney disease stage III Uncontrolled diabetes mellitus type 2 Hypercoagulopathy on presentation Plan: Continue patient's current cardiac medications Continue increased Coreg 12.5 mg twice daily for blood pressure control Resume losartan at 25 mg daily Obtain lab work Continue Coumadin, pharmacy is dosing Nurse practitioner note has been reviewed, I agree with documented findings and plan of care. Patient was seen and examined. Objective - Vital Signs Vital signs: Vital Signs Temp 98.6 F 03/24/23 08:00 Pulse 76 03/24/23 08:00 Resp 18 03/24/23 08:00 BP 165/96 03/24/23 08:00 Pulse Ox 96 03/24/23 08:00 FiO2 Intake & Output 03/23/23 03/24/23 03/24/23 18:59 06:59 18:59 Intake Total 480 Output Total 350 Balance -350 480 Intake: Oral 480 Output: Urine 350 Other: Voiding Method Urinal Urinal # Voids 1 # Bowel Movements 1 - Labs CBC & Chem 7: 03/20/23 06:37 03/20/23 06:37 Labs: Abnormal Lab Results - Last 24 Hours (Table) 03/23/23 03/23/23 03/23/23 Range/Units 11:35 16:34 20:11 PT (10.0-12.5) sec INR (<1.2) POC Glucose (mg/dL) 175 H 162 H 183 H (70-110) mg/dL 03/24/23 Range/Units 08:31 PT 32.2 H (10.0-12.5) sec INR 3.3 H (<1.2) POC Glucose (mg/dL) (70-110) mg/dL Microbiology - Last 24 Hours (Table) 03/20/23 11:03 Gram Stain - Final Heel - Left Tissue Culture - Final Staphylococcus haemolyticus Christina species, not albicans 03/19/23 04:40 Anaerobic Culture - Final Foot - Left Anaerobic Gm Negative Bacilli Anaerobic Gm Negative Bacilli#2
[2023-03-24 11:21] LABS: MCH 29.2 pg (25.0-35.0); MCHC 33.2 g/dL (31.0-37.0); MCV 87.8 fL (80.0-100.0); Mean Platelet Volume 10.1; Platelet Count 251 k/uL (150-450); Poikilocytosis Slight; WBC 12.1 k/uL (3.8-10.6)
--- NOTE | 2023-03-24 11:22 | P.DS ---
Providers Date of admission: 03/17/23 13:03 Attending physician: Patrick Euceda Consults: 03/17/23 12:38 Consult Physician Routine Consulting Provider: Azeem Liang Consult Reason/Comments: Diabetic foot ulcer Do you want consulting provider notified?: Yes 03/19/23 01:12 Consult Physician Routine Consulting Provider: Luis Alberto Galindo Consult Reason/Comments: left foot wound , debridemnt and deep cultures Do you want consulting provider notified?: Yes 03/21/23 18:44 Consult Physician Routine Consulting Provider: Ramirez Burnham Consult Reason/Comments: NOS a-fib Do you want consulting provider notified?: Yes Primary care physician: Gregorio Palomino [place] [facility] Course: Diagnoses: Left diabetic foot ulcer on the plantar surface at the amputation of the great toe site reinspected status post I&D on 03/20 Cardiomyopathy with ejection fraction 20-25% with possible ischemia and anterior wall hypokinesia Atrial fibrillation/flutter, currently on Coumadin. Acute kidney injury with prior history of CKD stage III. Baseline creatinine level 1.3-1.8 creatinine on admission 2.03. 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 Coronary artery disease with history of CABG and stent placement supratherapeutic INR level Long-term anticoagulation with Coumadin etiology not known. History of ulcerative colitis Hypothyroidism Medication noncompliance History of constipation Hyperlipidemia Hospital course: Patient is a 67-year-old male with a past medical history of coronary artery disease status post CABG, and stent placement, hypertension, diabetes type 2 insulin-dependent, hypothyroidism and prior history of compression of the right middle toe presents to ER with the complaints of left foot ulcer below the great toe. Patient does have history of peripheral neuropathy. Patient was found to have diabetic left foot cellulitis and ulcer status post d ebridement with vascular surgery team on 03/20, culture is growing Pseudomonas and stripped agalactia. Patient will be discharged on IV antibiotics cefepime 7 days. The other wound culture with Staphylococcus hemolyticus and Christina species looks like contamination and we checked it with infectious disease team. Patient clinically is improving and he thinks he can be discharged today Cartilages were following the patient for his A. fib/flutter and is currently on Coumadin. INR is 3.3 today. He got 5 mg last night. We going to lower the dose of Coumadin down to 2 mg daily starting tonight with a close monitoring of INR and hemoglobin and for any signs of bleeding at goal INR is 2.0-3.0. Patient other than that he denies any other symptoms, no chest pain or dyspnea. His insulin is resumed and his rate is controlled. His sugar is controlled. Patient was cleared for discharge with ID team and cartilages securing for discharge today. Problems and management plan were discussed with the patient and he verbalized understanding and acceptance Patient was found stable and can be discharged home in guarded prognosis however he needs follow-up as an outpatient. Patient was instructed to follow up with PCP Dr. Palomino within one week and patient agrees We recommend patient follow up with Dr. Chávez in 1 week after discharge (patient was taken warfarin 7.5 mg every day except Wednesday and Wednesday was taking 10 mg. But his INR was more than 10 on admission) , here in the hospital her got 7.5 mg x 3 days, and then 5 mg x last 2 days, and his INR went up to 3.3 today. Therefore we going to lower the dose of Coumadin tonight to 2 mg with close monitoring of INR Physical exam Gen: patient is a AAOx3, no distress CVS: S1-S2, RRR, no murmur Lungs: B/L CTA, no wheezing Abdomen: soft, no distention, no tenderness, positive bowel sounds -Extremity: no leg edema or induration. Left diabetic foot ulcer and cellulitis improving. Right arm PICC line in a Place Time spent more than 35 minutes Patient Condition at Discharge: Fair Plan - Discharge Summary New Discharge Prescriptions: No Action Gabapentin [Neurontin] 300 mg PO TID Simvastatin [Zocor] 20 mg PO DAILY Hydroxychloroquine Sulfate [Plaquenil] 200 mg PO BID Famotidine [Pepcid] 20 mg PO BID #60 tablet amLODIPine [Norvasc] 5 mg PO BID 30 Days #60 tab Warfarin [Coumadin] 7.5 mg PO SUTUWETHSA Insulin Aspart Prot/Insuln Asp [Novolog MIX 70-30 Flexpen] 70 unit SQ HS Warfarin [Coumadin] 10 mg PO MOFR Magnesium Oxide [Magox 400] 400 mg PO DAILY Acetaminophen Tab [Tylenol Tab] 500 - 1,000 mg PO Q4H PRN PRN Reason: Pain Loratadine [Claritin] 10 mg PO DAILY Testosterone Cypionate [Depo-Testosterone] 200 mg IM Q28D Ferrous Sulfate [Iron (65 MG Elemental)] 325 mg PO DAILY Aspirin EC [Ecotrin Low Dose] 81 mg PO DAILY Levothyroxine Sodium [Synthroid] 100 mcg PO DAILY Sennosides [Senokot] 8.6 mg PO BID PRN tab PRN Reason: Constipation Meclizine [Antivert] 12.5 mg PO TID PRN 30 Days #90 tablet PRN Reason: Vertigo Losartan [Cozaar] 25 mg PO DAILY #30 tab carvediloL [Coreg] 6.25 mg PO BID Balsalazide Disodium [Colazal] 2,250 mg PO TID Discharge Medication List Aspirin EC [Ecotrin Low Dose] 81 mg PO DAILY 03/04/21 [History] Ferrous Sulfate [Iron (65 MG Elemental)] 325 mg PO DAILY 03/04/21 [History] Gabapentin [Neurontin] 300 mg PO TID 03/04/21 [History] Hydroxychloroquine Sulfate [Plaquenil] 200 mg PO BID 03/04/21 [History] Levothyroxine Sodium [Synthroid] 100 mcg PO DAILY 03/04/21 [History] Simvastatin [Zocor] 20 mg PO DAILY 03/04/21 [History] Famotidine [Pepcid] 20 mg PO BID #60 tablet 03/12/21 [Rx] Sennosides [Senokot] 8.6 mg PO BID PRN tab 03/12/21 [Rx] Losartan [Cozaar] 25 mg PO DAILY #30 tab 03/13/21 [Rx] Meclizine [Antivert] 12.5 mg PO TID PRN 30 Days #90 tablet 03/13/21 [Rx] amLODIPine [Norvasc] 5 mg PO BID 30 Days #60 tab 03/13/21 [Rx] Insulin Aspart Prot/Insuln Asp [Novolog MIX 70-30 Flexpen] 70 unit SQ HS 01/22/23 [History] Warfarin [Coumadin] 7.5 mg PO SUTUWETHSA 01/22/23 [History] carvediloL [Coreg] 6.25 mg PO BID 01/22/23 [History] Acetaminophen Tab [Tylenol Tab] 500 - 1,000 mg PO Q4H PRN 03/17/23 [History] Balsalazide Disodium [Colazal] 2,250 mg PO TID 03/17/23 [History] Loratadine [Claritin] 10 mg PO DAILY 03/17/23 [History] Magnesium Oxide [Magox 400] 400 mg PO DAILY 03/17/23 [History] Testosterone Cypionate [Depo-Testosterone] 200 mg IM Q28D 03/17/23 [History] Warfarin [Coumadin] 10 mg PO MOFR 03/17/23 [History] Follow up Appointment(s)/Referral(s): Gregorio Palomino MD [Primary Care Provider] - 1-2 days Gianni Chávez DO [STAFF PHYSICIAN] - 1 Week Activity/Diet/Wound Care/Special Instructions: heart healthy diet activity is as tolerated Discharge Disposition: TRANSFER TO SNF/ECF
[2023-03-24 11:27] VITALS: BP 155/93; TEMP 97.8
[2023-03-24 11:36] LABS: Glucose,Whole Blood 208 mg/dL (70-110)
--- NOTE | 2023-03-24 11:52 | P.PN ---
Subjective Progress Note Date: 03/23/23 Principal diagnosis: Reason for follow-up is left foot wound and cellulitis Patient is a 67-year-old male with a past medical his significant for diabetes mellitus hypertension hyperlipidemia hypothyroidism patient apparently did have left big toe amputation done previously and the patient has been following at [facility] [place] patient has been sent to the ER concerning for worsening cellulitis and infection to the left heel and left forefront and second cellulitis. On today's evaluation that is 03/23/2023, the patient continues to be afebrile, the patient is breathing comfortably on 2 L nasal cannula oxygen, the patient denies any chest pain shortness of breath and no significant cough, patient denies having any abdominal pain no nausea vomiting or any diarrhea. pain to the left heel wound is controlled Patient white count is 8.8 , creatinine is 1.91 as of 03/20/2023 , INR is 2.7 CRP is 13.6 blood cultures negative local culture positive for Pseudomonas and strep Objective - Vital Signs Vital signs: Vital Signs Temp 97.4 F L 03/23/23 08:00 Pulse 77 03/23/23 08:00 Resp 18 03/23/23 08:00 BP 175/89 03/23/23 08:00 Pulse Ox 99 03/23/23 08:00 FiO2 Intake & Output 03/22/23 03/23/23 03/23/23 18:59 06:59 18:59 Intake Total 560 Output Total 600 600 Balance -600 -40 Intake: Intake, IV Titration 200 Amount Sodium Chloride 0.9% 1, 200 000 ml @ 50 mls/hr IV . Q20H [facility] Rx#:[id number] Oral 360 Output: Urine 600 600 Other: Voiding Method Urinal Urinal Urinal # Voids 1 # Bowel Movements 1 - Exam GENERAL DESCRIPTION: An elderly male lying in bed in no distress RESPIRATORY SYSTEM: Unlabored breathing , decreased breath sounds at bases HEART: S1 S2 regular rate and rhythm , ABDOMEN: Soft , no tenderness EXTREMITIES: Right leg wounds are currently dressed no drainage on the dressing - Labs CBC & Chem 7: 03/24/23 08:31 03/20/23 06:37 Labs: Abnormal Lab Results - Last 24 Hours (Table) 03/22/23 03/22/23 03/23/23 Range/Units 16:19 20:13 06:22 PT (10.0-12.5) sec INR (<1.2) POC Glucose (mg/dL) 131 H 153 H 161 H (70-110) mg/dL 03/23/23 03/23/23 Range/Units 07:15 11:35 PT 26.3 H (10.0-12.5) sec INR 2.7 H (<1.2) POC Glucose (mg/dL) 175 H (70-110) mg/dL Microbiology - Last 24 Hours (Table) 03/19/23 04:40 Anaerobic Culture - Final Foot - Left Anaerobic Gm Negative Bacilli Anaerobic Gm Negative Bacilli#2 03/20/23 11:00 Anaerobic Culture - Preliminary Foot - Left 03/20/23 11:03 Gram Stain - Preliminary Heel - Left Tissue Culture - Preliminary Staphylococcus species Yeast species 03/17/23 11:30 Blood Culture - Final Blood 03/17/23 11:43 Blood Culture - Final Blood Assessment and Plan (1) Cellulitis of left foot Current Visit: Yes Status: Acute Code(s): L03.116 - CELLULITIS OF LEFT LOWER LIMB SNOMED Code(s): 11804879703143412 (2) Penicillin allergy Current Visit: Yes Status: Acute Code(s): Z88.0 - ALLERGY STATUS TO PENICILLIN SNOMED Code(s): 22841222 (3) Pressure injury of left heel, stage 2 Current Visit: Yes Status: Acute Code(s): L89.622 - PRESSURE ULCER OF LEFT HEEL, STAGE 2 SNOMED Code(s): 18540778577899 (4) Type 2 diabetes mellitus with other skin ulcer Current Visit: Yes Status: Acute Code(s): E11.622 - TYPE 2 DIABETES MELLITUS WITH OTHER SKIN ULCER; L98.499 - NON-PRESSURE CHRONIC ULCER OF SKIN OF SITES W UNSP SEVERITY SNOMED Code(s): 300907086 Plan: 1patient presented to hospital with left foot nonhealing wound in this patient who do have underlying history of diabetes mellitus and the patient did have a previous left big toe amputation and wound to the right foot at the base of the first metatarsal and also wound to the right heel concerning for secondary cellulitis 2-penicillin allergy that will limit the number of antibiotics safe to use 3-patient is status post vascular surgery evaluation and debridement and those cultures are pending 5-patient local culture growing Pseudomonas and strep, patient to continue with cefepime, daptomycin has been discontinued patient will need short course of IV cefepime as unable to use Cipro because the patient is on Plaquenil, discussed with the telephonic nurse case manager working on authorization Dictation was produced using [employer] dictation software. please excuse any grammatical, word or spelling errors. Time with Patient: Less than 30
--- NOTE | 2023-03-24 11:53 | P.PN ---
Subjective Progress Note Date: 03/24/23 Principal diagnosis: Reason for follow-up is left foot wound and cellulitis Patient is a 67-year-old male with a past medical his significant for diabetes mellitus hypertension hyperlipidemia hypothyroidism patient apparently did have left big toe amputation done previously and the patient has been following at [facility] care [place] patient has been sent to the ER concerning for worsening cellulitis and infection to the left heel and left forefront and second cellulitis. On today's evaluation that is 03/24/2023, the patient denies any fever or any chills, the patient is breathing comfortably on 2 L nasal cannula oxygen, the patient denies any chest pain shortness of breath did have occasional dry cough, patient denies nausea vomiting no abdominal pain or any diarrhea. pain to the left heel wound is controlled with the current medication Patient white count is 12.1, creatinine is 1.91 as of 03/20/2023 , INR is 3.3 CRP is 13.6 blood cultures negative local culture positive for Pseudomonas and strep, repeat culture growing Christina and staph epi Objective - Vital Signs Vital signs: Vital Signs Temp 97.8 F 03/24/23 10:59 Pulse 77 03/24/23 10:59 Resp 18 03/24/23 10:59 BP 155/93 03/24/23 10:59 Pulse Ox 99 03/24/23 10:59 FiO2 Intake & Output 03/23/23 03/24/23 03/24/23 18:59 06:59 18:59 Intake Total 480 Output Total 350 Balance -350 480 Intake: Oral 480 Output: Urine 350 Other: Voiding Method Urinal Urinal # Voids 1 # Bowel Movements 1 - Exam GENERAL DESCRIPTION: An elderly male lying in bed in no distress RESPIRATORY SYSTEM: Unlabored breathing , decreased breath sounds at bases HEART: S1 S2 regular rate and rhythm , ABDOMEN: Soft , no tenderness EXTREMITIES: Right leg wounds are currently dressed no drainage on the dressing - Labs CBC & Chem 7: 03/24/23 08:31 03/20/23 06:37 Labs: Abnormal Lab Results - Last 24 Hours (Table) 03/23/23 03/23/23 03/24/23 Range/Units 16:34 20:11 08:31 WBC (3.8-10.6) k/uL RBC (4.30-5.90) m/uL Hgb (13.0-17.5) gm/dL Hct (39.0-53.0) % PT 32.2 H (10.0-12.5) sec INR 3.3 H (<1.2) POC Glucose (mg/dL) 162 H 183 H (70-110) mg/dL 03/24/23 03/24/23 Range/Units 08:31 11:34 WBC 12.1 H (3.8-10.6) k/uL RBC 4.10 L (4.30-5.90) m/uL Hgb 12.0 L (13.0-17.5) gm/dL Hct 36.0 L (39.0-53.0) % PT (10.0-12.5) sec INR (<1.2) POC Glucose (mg/dL) 208 H (70-110) mg/dL Microbiology - Last 24 Hours (Table) 03/20/23 11:03 Gram Stain - Final Heel - Left Tissue Culture - Final Staphylococcus haemolyticus Christina species, not albicans 03/19/23 04:40 Anaerobic Culture - Final Foot - Left Anaerobic Gm Negative Bacilli Anaerobic Gm Negative Bacilli#2 Assessment and Plan (1) Cellulitis of left foot Current Visit: Yes Status: Acute Code(s): L03.116 - CELLULITIS OF LEFT LOWER LIMB SNOMED Code(s): 34826412896239892 (2) Penicillin allergy Current Visit: Yes Status: Acute Code(s): Z88.0 - ALLERGY STATUS TO PENICILLIN SNOMED Code(s): 33817046 (3) Pressure injury of left heel, stage 2 Current Visit: Yes Status: Acute Code(s): L89.622 - PRESSURE ULCER OF LEFT HEEL, STAGE 2 SNOMED Code(s): 14399079128179 (4) Type 2 diabetes mellitus with other skin ulcer Current Visit: Yes Status: Acute Code(s): E11.622 - TYPE 2 DIABETES MELLITUS WITH OTHER SKIN ULCER; L98.499 - NON-PRESSURE CHRONIC ULCER OF SKIN OF SITES W UNSP SEVERITY SNOMED Code(s): 102377841 Plan: 1patient presented to hospital with left foot nonhealing wound in this patient who do have underlying history of diabetes mellitus and the patient did have a previous left big toe amputation and wound to the right foot at the base of the first metatarsal and also wound to the right heel concerning for secondary cellulitis 2-penicillin allergy that will limit the number of antibiotics safe to use 3-patient is status post vascular surgery evaluation and debridement and those cultures are growing Christina and staph epi more likely skin jaycee 5-patient local culture grew Pseudomonas and strep, patient to continue with cefepime x 1 week on discharge and close outpatient follow-up, he will follow-up with wound care for his continuous local wound care Dictation was produced using Pictela dictation software. please excuse any grammatical, word or spelling errors. Time with Patient: Less than 30
[2023-03-24 12:22] LABS: African American GFR (CKD) 48 (>60 ml/min/1.73 sqM); Anion Gap 7 mmol/L; Blood Urea Nitrogen 19 mg/dL (9-20); Calcium 8.4 mg/dL (8.4-10.2); Carbon Dioxide 26 mmol/L (22-30); Chloride 106 mmol/L (98-107); Glucose 106 mg/dL (74-99); Non-African American GFR(CKD) 42 (>60 ml/min/1.73 sqM); Potassium 3.3 mmol/L (3.5-5.1); Sodium 139 mmol/L (137-145)
[2023-03-24 14:20] VITALS: PULSE 76
[2023-03-24] MEDS ORDERED: WARFARIN 0.5 MG TAB PO ONE (18:00)
== END 2023-03-24 15:43 | DRG 464 ==
LOC: EC 10:44 → OBSVTOIN 13:03 → 6NMEDSUR 13:03 → 3SCARD 03-18 04:28
PROVIDERS: ADMIT Internal Medicine; ATTEND Internal Medicine
PROC: 0JBR0ZZ Excision of Left Foot Subcutaneous Tissue and Fascia, Open Approach (ICD-10-PCS; principal; 2023-03-20)
PROC: 05HB33Z Insertion of Infusion Device into Right Basilic Vein, Percutaneous Approach (ICD-10-PCS; 2023-03-23 12:55)
DX: T87.89 Other complications of amputation stump (principal); D68.59 Other primary thrombophilia; I48.3 Typical atrial flutter; K51.90 Ulcerative colitis, unspecified, without complications; L03.116 Cellulitis of left lower limb; N17.9 Acute kidney failure, unspecified; E11.621 Type 2 diabetes mellitus with foot ulcer; T87.44 Infection of amputation stump, left lower extremity; E78.5 Hyperlipidemia, unspecified; N18.30 Chronic kidney disease, stage 3 unspecified; L97.522 Non-pressure chronic ulcer of other part of left foot with fat layer exposed; L89.622 Pressure ulcer of left heel, stage 2; L89.312 Pressure ulcer of right buttock, stage 2; E11.628 Type 2 diabetes mellitus with other skin complications; E11.649 Type 2 diabetes mellitus with hypoglycemia without coma; E11.622 Type 2 diabetes mellitus with other skin ulcer; E11.22 Type 2 diabetes mellitus with diabetic chronic kidney disease; E03.9 Hypothyroidism, unspecified; E11.65 Type 2 diabetes mellitus with hyperglycemia; I48.0 Paroxysmal atrial fibrillation; I13.10 Hypertensive heart and chronic kidney disease without heart failure, with stage 1 through stage 4 chronic kidney disease, or unspecified chronic kidney disease; E11.42 Type 2 diabetes mellitus with diabetic polyneuropathy; Z89.412 Acquired absence of left great toe; Z89.422 Acquired absence of other left toe(s); Z79.4 Long term (current) use of insulin; I25.10 Atherosclerotic heart disease of native coronary artery without angina pectoris; B96.5 Pseudomonas (aeruginosa) (mallei) (pseudomallei) as the cause of diseases classified elsewhere; B95.1 Streptococcus, group B, as the cause of diseases classified elsewhere; R00.1 Bradycardia, unspecified; I44.0 Atrioventricular block, first degree; I25.5 Ischemic cardiomyopathy; Z88.0 Allergy status to penicillin; Z95.1 Presence of aortocoronary bypass graft; Z95.5 Presence of coronary angioplasty implant and graft; Z87.891 Personal history of nicotine dependence; Z98.1 Arthrodesis status; Z91.148 Patient's other noncompliance with medication regimen for other reason; Z79.899 Other long term (current) drug therapy; Z79.890 Hormone replacement therapy; Z79.82 Long term (current) use of aspirin; Z79.01 Long term (current) use of anticoagulants
CPT/HCPCS: 36410; 36415; 70450; 76937; 78315; 80048; 80053; 83036; 83605; 85025; 85027; 85610; 85652; 86140; 87040; 87070; 87075; 87077; 87186; 87205; 93306; 94760; 96365; 96366; 96367; 99285

== ENCOUNTER 2023-06-10 19:58 | Inpatient (IN) | payer MEDICARE ==
[2023-06-10 20:06] LABS: Glucose,Whole Blood 259 mg/dL (70-110)
[2023-06-10 20:52] LABS: Basophils % (A) 0 %; Eosinophils # (A) 0.2 k/uL (0-0.7); Eosinophils % (A) 1 %; HCT 32.4 % (39.0-53.0); HGB 10.8 gm/dL (13.0-17.5); Lymphocytes # (A) 0.4 k/uL (1.0-4.8); Lymphocytes % (A) 3 %; MCH 29.3 pg (25.0-35.0); MCHC 33.5 g/dL (31.0-37.0); MCV 87.6 fL (80.0-100.0); Monocytes # (A) 0.7 k/uL (0-1.0); Monocytes % (A) 5 %; Neutrophils # (A) 13.5 k/uL (1.3-7.7); Neutrophils % (A) 90 %; Platelet Count 393 k/uL (150-450); RBC 3.69 m/uL (4.30-5.90); RDW 12.6 % (11.5-15.5); WBC 14.9 k/uL (3.8-10.6)
[2023-06-10 21:01] LABS: ALT 14 U/L (4-49); AST 45 U/L (17-59); African American GFR (CKD) 37 (>60 ml/min/1.73 sqM); Albumin 3.8 g/dL (3.5-5.0); Alkaline Phosphatase 76 U/L (38-126); Anion Gap 11 mmol/L; Blood Urea Nitrogen 46 mg/dL (9-20); Calcium 9.4 mg/dL (8.4-10.2); Carbon Dioxide 24 mmol/L (22-30); Chloride 96 mmol/L (98-107); Glucose 253 mg/dL (74-99); Magnesium 2.2 mg/dL (1.6-2.3); Non-African American GFR(CKD) 32 (>60 ml/min/1.73 sqM); Potassium 4.1 mmol/L (3.5-5.1); Sodium 131 mmol/L (137-145); Total Bilirubin 0.7 mg/dL (0.2-1.3); Total Protein 7.6 g/dL (6.3-8.2)
--- NOTE | 2023-06-10 21:03 | XR ---
EXAMINATION TYPE: XR chest 1V portable DATE OF EXAM: 06/10/2023 COMPARISON: NONE HISTORY: Chest pain, increased weakness TECHNIQUE: Single frontal view of the chest is obtained. FINDINGS: There is diffuse hazy density involving the left hemithorax consistent with moderate pleural effusion . The right lung is clear. There is no pneumothorax. The pulmonary vasculature do not appear congested. The osseous structures are intact. There are median sternotomy wires. IMPRESSION: Hazy density in left hemithorax most likely indicating a layering moderate pleural effus ion. No other significant abnormality seen.
[2023-06-10 21:34] LABS: Prothrombin Time >130.0 sec (10.0-12.5)
[2023-06-10 21:35] LABS: INR >10.0 (<1.2)
[2023-06-10 21:36] LABS: Partial Thromboplastin Time 113.4 sec (22.0-30.0)
[2023-06-10] MEDS: PHYTONADIONE ORAL 5 MG/5 ML ORAL.SYRG PO STA (22:28)
--- NOTE | 2023-06-10 22:41 | CT ---
EXAM: CT Head Without Intravenous Contrast CLINICAL HISTORY: ITS.REASON CT Reason: altered mental status TECHNIQUE: Axial computed tomography images of the head/brain without intravenous contrast. CTDI is 49.1 mGy and DLP is 1179 mGy-cm. This CT exam was performed using one or more of the following dose reduction techniques: automated exposure control, adjustment of the mA and/or kV according to patient size, and/or use of iterative reconstruction technique. COMPARISON: No relevant prior studies available. FINDINGS: No acute intracranial hemorrhage. No midline shift or mass effect. The territorial pollard-white matter differentiation is maintained throughout. Age-related cerebral volume loss. Periventricular and subcortical white matter hypoattenuation, consistent with chronic microangiopathy. The visualized orbits appear grossly unremarkable. The calvarium is intact. The visualized paranasal sinuses and mastoid air cells are grossly clear. IMPRESSION: No acute intracranial hemorrhage, midline shift, or mass effect.
[2023-06-10] MEDS ORDERED: NALOXONE 0.4 MG/ML 1 ML VIAL IV PRN (23:58)
[2023-06-11] MEDS: SODIUM CHLORIDE 0.9% 1,000 ML IV SCH (00:20)
[2023-06-11] MEDS: DILTIAZEM 125 MG in SODIUM CHLORIDE 0.9% 100 ML IV SCH (00:23)
[2023-06-11] MEDS: DILTIAZEM DRIP BOLUS FROM BAG 1 MG SOLN IV ONE (00:23)
--- NOTE | 2023-06-11 05:09 | ED ---
Weakness HPI - General Chief complaint: Weakness Stated complaint: Failure to thrive Time Seen by Provider: 06/10/23 20:05 Source: patient, EMS Mode of arrival: EMS Limitations: altered mental status - History of Present Illness Initial comments: This patient is a 67-year-old man with history of diabetes and atrial fibrillation who is brought by EMS to have evaluation for generalized weakness. The patient reportedly at home feeling progressively more weak. EMS was called to assist patient in getting up, on arrival they found the patient to have ta chycardia with heart rate approximately 150 bpm. They transported the patient here to have evaluation. When I review the patient, he only complains of weakness. Patient denies fevers but states that he has been feeling cold. He has been feeling progressively more weak though no focal weakness. He denies chest pain or dyspnea. Has not noted changes in urination or bowel movements. MD Complaint: generalized weakness, lack of energy -: unknown Location: generalized Severity scale (1-10): 0 Consistency: constant Improves with: none Worsens with: none - Related Data Home Medications Medication Instructions Recorded Confirmed Ferrous Sulfate [Iron (65 MG 325 mg PO DAILY 03/04/21 06/11/23 Elemental)] Hydroxychloroquine Sulfate 200 mg PO BID 03/04/21 06/11/23 [Plaquenil] Levothyroxine Sodium [Synthroid] 100 mcg PO DAILY 03/04/21 06/11/23 Simvastatin [Zocor] 20 mg PO DAILY 03/04/21 06/11/23 Balsalazide Disodium [Colazal] 2,250 mg PO BID 03/17/23 06/11/23 Loratadine [Claritin] 10 mg PO DAILY 03/17/23 06/11/23 Magnesium Oxide [Magox 400] 400 mg PO DAILY 03/17/23 06/11/23 Testosterone Cypionate 200 mg IM Q28D 03/17/23 06/11/23 [Depo-Testosterone] Acetaminophen [Tylenol Arthritis] 1,300 mg PO Q8H PRN 06/11/23 06/11/23 Aspirin 81 mg PO DAILY 06/11/23 06/11/23 Insulin Glargine [Lantus Vial] 10 unit SQ DAILY 06/11/23 06/11/23 Insuln Asp Prt/Insulin Aspart 1 dose SQ HS 06/11/23 06/11/23 [NovoLOG MIX 70-30 VIAL] Ondansetron Odt [Zofran ODT] 4 mg PO TID PRN 06/11/23 06/11/23 carvediloL [Coreg] 6.25 mg PO BID 06/11/23 06/11/23 Previous Rx's Medication Instructions Recorded Famotidine [Pepcid] 20 mg PO BID #60 tablet 03/12/21 Sennosides [Senokot] 8.6 mg PO BID PRN tab 03/12/21 Losartan [Cozaar] 25 mg PO DAILY #30 tab 03/13/21 Meclizine [Antivert] 12.5 mg PO TID PRN 30 Days #90 03/13/21 tablet Apixaban [Eliquis] 5 mg PO BID #60 tab 06/11/23 Acetaminophen Tab [Tylenol] 650 mg PO Q6HR PRN tab 06/18/23 Amiodarone [Cordarone] 200 mg PO BID tab 06/18/23 Gabapentin [Neurontin] 300 mg PO TID #9 cap 06/18/23 HYDROcodone/APAP 5-325MG [[place] 1 each PO Q8HR PRN #4 tab 06/18/23 5-325] Vancomycin 1,500 mg IVPB Q24HR each 06/18/23 Allergies Allergy/AdvReac Type Severity Reaction Status Date / Time Penicillins Allergy Unknown Verified 06/11/23 09:48 Childhood Review of Systems ROS Statement: Those systems with pertinent positive or pertinent negative responses have been documented in the HPI. ROS Other: All systems not noted in ROS Statement are negative. Constitutional: Reports: chills, weakness. Denies: fever Eyes: Denies: vision change ENT: Denies: congestion Respiratory: Denies: cough, dyspnea Cardiovascular: Denies: chest pain, palpitations, orthopnea, edema, syncope Gastrointestinal: Denies: abdominal pain, nausea, vomiting, diarrhea Genitourinary: Denies: dysuria, hematuria Musculoskeletal: Denies: back pain Skin: Denies: rash Neurological: Denies: headache, weakness, numbness Past Medical History Past Medical History: Diabetes Mellitus, Hyperlipidemia, Hypertension, Thyroid Disorder History of Any Multi-Drug Resistant Organisms: None Reported Past Surgical History: Coronary Bypass/CABG, Heart Catheterization With Stent Additional Past Surgical History / Comment(s): left great and second toe removal. bilat carpal tunnel. neck fusion 5-6-7. triple bypass Past Anesthesia/Blood Transfusion Reactions: No Reported Reaction Additional Past Anesthesia/Blood Transfusion Reaction / Comment(s): no blood transfusion Date of Last Stent Placement:: 02/2002 Past Psychological History: No Psychological Hx Reported Smoking Status: Former smoker Past Alcohol Use History: None Reported Past Drug Use History: None Reported - Past Family History Father History Unknown: Yes Mother History Unknown: Yes General Exam General appearance: alert, in no apparent distress Head exam: Present: atraumatic, normocephalic Eye exam: Present: normal appearance. Absent: scleral icterus, conjunctival injection ENT exam: Present: mucous membranes dry Neck exam: Present: normal inspection, full ROM Respiratory exam: Present: normal lung sounds bilaterally. Absent: respiratory distress, wheezes, rales, rhonchi, stridor, accessory muscle use Cardiovascular Exam: Present: tachycardia, irregular rhythm, systolic murmur. Absent: diastolic murmur, rubs, gallop GI/Abdominal exam: Present: soft. Absent: distended, tenderness, guarding, rebound, rigid, mass Extremities exam: Present: normal inspection, normal capillary refill. Absent: pedal edema, calf tenderness Back exam: Present: normal inspection. Absent: CVA tenderness (R), CVA tenderness (L) Neurological exam: Present: alert, CN II-XII intact. Absent: oriented X3, motor sensory deficit Skin exam: Present: warm, dry, intact, normal color. Absent: rash Course Vital Signs 06/10/23 06/10/23 06/11/23 19:58 21:05 00:21 Temperature 98.8 F Pulse Rate 151 H 125 H 128 H Respiratory 18 18 18 Rate Blood Pressure 121/53 134/98 143/93 O2 Sat by Pulse 99 99 92 L Oximetry 06/11/23 06/11/23 06/11/23 02:00 03:00 04:00 Temperature Pulse Rate 93 138 H 129 H Respiratory 18 18 18 Rate Blood Pressure 114/93 123/78 128/65 O2 Sat by Pulse 95 97 95 Oximetry 06/11/23 06/11/23 06/11/23 05:00 06:00 08:33 Temperature Pulse Rate 120 H 117 H 103 H Respiratory 18 18 Rate Blood Pressure 156/91 185/84 154/63 O2 Sat by Pulse 98 95 97 Oximetry 06/11/23 06/11/23 06/11/23 10:58 11:00 11:30 Temperature Pulse Rate 78 77 75 Respiratory 23 21 Rate Blood Pressure 116/59 116/59 135/72 O2 Sat by Pulse 98 96 97 Oximetry 06/11/23 06/11/23 15:10 17:46 Temperature 98.3 F Pulse Rate 90 95 Respiratory 16 Rate Blood Pressure 136/65 136/65 O2 Sat by Pulse 96 97 Oximetry EKG Findings - EKG Results: EKG: interpreted by ERMD EKG shows: tachycardia, atrial fibrillation - Dysrhythmias: Supraventricular dysrhythmia: atrial fibrillation (With rate approximately 149 bpm) - Blocks, [place], Hypertrophy, ST Abn: QRS axis and voltage: left axis deviation (-30 to -90) Chamber hypertrophy or enlargement: left ventricular hypertrophy or enlargement (LVE) Medical Decision Making - Medical Decision Making The patient had CT of the brain that I interpreted as negative for acute bony injury or acute intracranial hemorrhage. The patient had chest x-ray which I interpreted as negative for pneumothorax. There is possible left lung infiltrate. Patient is a 67-year-old man brought from home with generalized weakness. The patient is found to have atrial fibrillation with rapid ventricular rate. Initial troponin is mildly elevated though the EKG is not frankly ischemic. The patient will be admitted with Cardizem drip, serial cardiac enzymes, cardiology consultation. The patient is given initial dose of Rocephin for possible pneumonia though he denies cough and sputum production. There is no fever. Procalcitonin level ordered The patient's INR is supratherapeutic and patient is given dose of vitamin K and additional Coumadin will be held. No evidence of current bleeding. Was pt. sent in by a medical professional or institution (, PA, AUTOPSY ASSISTANT, urgent care, hospital, or halfway...) When possible be specific @ -[No] Did you speak to anyone other than the patient for history (EMS, parent, family, police, friend...)? What history was obtained from this source @ -[EMS contributed to history Did you review nursing and triage notes (agree or disagree)? Why? @ -[I reviewed and agree with nursing and triage notes] Were old charts reviewed (outside hosp., previous admission, EMS record, old EKG, old radiological studies, urgent care reports/EKG's, halfway records)? Report findings @ -[No old charts were reviewed] Differential Diagnosis (chest pain, altered mental status, abdominal pain women, abdominal pain men, vaginal bleeding, weakness, fever, dyspnea, syncope, headache, dizziness, GI bleed, back pain, seizure, CVA, palpatations, mental health, musculoskeletal)? @ -[Differential Weakness: Hypoglycemia, shock, sepsis, hyponatremia, anemia, infection, SC, ETOH, adverse medicine reaction, overdose, stroke, this is not meant to be an all-inclusive list. EKG interpreted by me (3pts min.). @ -[I interpreted as above] X-rays interpreted by me (1pt min.). @ -[I interpreted as above CT interpreted by me (1pt min.). @ -[Interpreted as above U/S interpreted by me (1pt. min.). @ -[None done] What testing was considered but not performed or refused? (CT, X-rays, U/S, labs)? Why? @ -[None] What meds were considered but not given or refused? Why? @ -[None] Did you discuss the management of the patient with other professionals (professionals i.e. , PA, AUTOPSY ASSISTANT, lab, RT, psych nurse, social worker psychiatric, cae engineer, teacher, privacy officer, manager case)? Give summary @ -Case discussed with admitting physician and treatment recommendations incorporated Was smoking cessation discussed for >3mins.? @ -[No] Was critical care preformed (if so, how long)? @ -[Yes, 35 minutes Were there social determinants of health that impacted care today? How? (Homelessness, low income, unemployed, alcoholism, drug addiction, transportation, low edu. Level, literacy, decrease access to med. care, senior care, rehab)? @ -[No] Was there de-escalation of care discussed even if they declined (Discuss DNR or withdrawal of care, Hospice)? DNR status @ -[No] What co-morbidities impacted this encounter? (DM, HTN, Smoking, COPD, CAD, Cancer, CVA, ARF, Chemo, Hep., AIDS, mental health diagnosis, sleep apnea, morbid obesity)? @ -[Diabetes, hypertension, atrial fibrillation Was patient admitted / discharged? Hospital course, mention meds given and route, prescriptions, significant lab abnormalities, going to OR and other pert inent info. @ -[Patient is admitted, see above Undiagnosed new problem with uncertain prognosis? @ -[No] Drug Therapy requiring intensive monitoring for toxicity (Heparin, Nitro, Insulin, Cardizem)? @ -[No] Were any procedures done? @ -[No] Diagnosis/symptom? @ -[Atrial fibrillation with rapid ventricular rate Coumadin toxicity NSTEMI Possible pneumonia Acute, or Chronic, or Acute on Chronic? @ -[Acute Uncomplicated (without systemic symptoms) or Complicated (systemic symptoms)? @ -[Uncomplicated Side effects of treatment? @ -[No] Exacerbation, Progression, or Severe Exacerbation? @ -[No] Poses a threat to life or bodily function? How? (Chest pain, USA, SC, pneumonia, PE, COPD, DKA, ARF, appy, cholecystitis, CVA, Diverticulitis, Homicidal, Suicidal, threat to staff... and all critical care pts) @ -Yes - Lab Data Result diagrams: 06/17/23 10:00 06/18/23 03:25 Lab Results 06/10/23 06/10/23 06/10/23 Range/Units 20:05 20:40 20:40 WBC 14.9 H (3.8-10.6) k/uL RBC 3.69 L (4.30-5.90) m/uL Hgb 10.8 L (13.0-17.5) gm/dL Hct 32.4 L (39.0-53.0) % MCV 87.6 (80.0-100.0) fL MCH 29.3 (25.0-35.0) pg MCHC 33.5 (31.0-37.0) g/dL RDW 12.6 (11.5-15.5) % Plt Count 393 (150-450) k/uL MPV 8.0 Neutrophils % 90 % Lymphocytes % 3 % Monocytes % 5 % Eosinophils % 1 % Basophils % 0 % Neutrophils # 13.5 H (1.3-7.7) k/uL Lymphocytes # 0.4 L (1.0-4.8) k/uL Monocytes # 0.7 (0-1.0) k/uL Eosinophils # 0.2 (0-0.7) k/uL Basophils # 0.0 (0-0.2) k/uL PT >130.0 H (10.0-12.5) sec INR >10.0 H* (<1.2) APTT 113.4 H* (22.0-30.0) sec Sodium (137-145) mmol/L Potassium (3.5-5.1) mmol/L Chloride (98-107) mmol/L Carbon Dioxide (22-30) mmol/L Anion Gap mmol/L BUN (9-20) mg/dL Creatinine (0.66-1.25) mg/dL Est GFR (CKD-EPI)AfAm (>60 ml/min/1.73 sqM) Est GFR (CKD-EPI)NonAf (>60 ml/min/1.73 sqM) Glucose (74-99) mg/dL POC Glucose (mg/dL) 259 H (70-110) mg/dL POC Glu Progress Developer ARACELI Tricia Porter Calcium (8.4-10.2) mg/dL Magnesium (1.6-2.3) mg/dL Total Bilirubin (0.2-1.3) mg/dL AST (17-59) U/L ALT (4-49) U/L Alkaline Phosphatase (38-126) U/L Creatine Kinase (55-170) U/L Total Creatine Kinase (30-223) u/L CK-MM (CK-3) (96.7-100.0) % CK-MB (CK-2) (0.0-3.3) % CK-BB (CK-1) (0.0) % Troponin I (0.000-0.034) ng/mL Total Protein (6.3-8.2) g/dL Albumin (3.5-5.0) g/dL 06/10/23 06/10/23 06/10/23 Range/Units 20:40 20:40 21:35 WBC (3.8-10.6) k/uL RBC (4.30-5.90) m/uL Hgb (13.0-17.5) gm/dL Hct (39.0-53.0) % MCV (80.0-100.0) fL MCH (25.0-35.0) pg MCHC (31.0-37.0) g/dL RDW (11.5-15.5) % Plt Count (150-450) k/uL MPV Neutrophils % % Lymphocytes % % Monocytes % % Eosinophils % % Basophils % % Neutrophils # (1.3-7.7) k/uL Lymphocytes # (1.0-4.8) k/uL Monocytes # (0-1.0) k/uL Eosinophils # (0-0.7) k/uL Basophils # (0-0.2) k/uL PT (10.0-12.5) sec INR (<1.2) APTT (22.0-30.0) sec Sodium 131 L (137-145) mmol/L Potassium 4.1 (3.5-5.1) mmol/L Chloride 96 L (98-107) mmol/L Carbon Dioxide 24 (22-30) mmol/L Anion Gap 11 mmol/L BUN 46 H (9-20) mg/dL Creatinine 2.07 H (0.66-1.25) mg/dL Est GFR (CKD-EPI)AfAm 37 (>60 ml/min/1.73 sqM) Est GFR (CKD-EPI)NonAf 32 (>60 ml/min/1.73 sqM) Glucose 253 H (74-99) mg/dL POC Glucose (mg/dL) (70-110) mg/dL POC Glu Progress Developer ID Calcium 9.4 (8.4-10.2) mg/dL Magnesium 2.2 (1.6-2.3) mg/dL Total Bilirubin 0.7 (0.2-1.3) mg/dL AST 45 (17-59) U/L ALT 14 (4-49) U/L Alkaline Phosphatase 76 (38-126) U/L Creatine Kinase 77 (55-170) U/L Total Creatine Kinase (30-223) u/L CK-MM (CK-3) (96.7-100.0) % CK-MB (CK-2) (0.0-3.3) % CK-BB (CK-1) (0.0) % Troponin I 0.423 H* (0.000-0.034) ng/mL Total Protein 7.6 (6.3-8.2) g/dL Albumin 3.8 (3.5-5.0) g/dL 06/10/23 Range/Units 21:35 WBC (3.8-10.6) k/uL RBC (4.30-5.90) m/uL Hgb (13.0-17.5) gm/dL Hct (39.0-53.0) % MCV (80.0-100.0) fL MCH (25.0-35.0) pg MCHC (31.0-37.0) g/dL RDW (11.5-15.5) % Plt Count (150-450) k/uL MPV Neutrophils % % Lymphocytes % % Monocytes % % Eosinophils % % Basophils % % Neutrophils # (1.3-7.7) k/uL Lymphocytes # (1.0-4.8) k/uL Monocytes # (0-1.0) k/uL Eosinophils # (0-0.7) k/uL Basophils # (0-0.2) k/uL PT (10.0-12.5) sec INR (<1.2) APTT (22.0-30.0) sec Sodium (137-145) mmol/L Potassium (3.5-5.1) mmol/L Chloride (98-107) mmol/L Carbon Dioxide (22-30) mmol/L Anion Gap mmol/L BUN (9-20) mg/dL Creatinine (0.66-1.25) mg/dL Est GFR (CKD-EPI)AfAm (>60 ml/min/1.73 sqM) Est GFR (CKD-EPI)NonAf (>60 ml/min/1.73 sqM) Glucose (74-99) mg/dL POC Glucose (mg/dL) (70-110) mg/dL POC Glu Progress Developer ID Calcium (8.4-10.2) mg/dL Magnesium (1.6-2.3) mg/dL Total Bilirubin (0.2-1.3) mg/dL AST (17-59) U/L ALT (4-49) U/L Alkaline Phosphatase (38-126) U/L Creatine Kinase (55-170) U/L Total Creatine Kinase 64 (30-223) u/L CK-MM (CK-3) 100.0 (96.7-100.0) % CK-MB (CK-2) 0.0 (0.0-3.3) % CK-BB (CK-1) 0.0 (0.0) % Troponin I (0.000-0.034) ng/mL Total Protein (6.3-8.2) g/dL Albumin (3.5-5.0) g/dL Disposition Clinical Impression: Atrial fibrillation with RVR, NSTEMI (non-ST elevated myocardial infarction), Coumadin toxicity Disposition: ADMITTED IP TO THIS HOSP Condition: Fair
[2023-06-11] MEDS ORDERED: DEXTROSE 50% SYRINGE 50 ML IVP PRN ×2 (05:15)
[2023-06-11 07:34] LABS: Glucose,Whole Blood 264 mg/dL (70-110)
[2023-06-11] MEDS: MAGNESIUM OXIDE 400 MG TAB PO SCH (08:36)
[2023-06-11] MEDS: amLODIPine 5 MG TAB PO SCH (08:36)
[2023-06-11] MEDS: GABAPENTIN 300 MG CAP PO SCH (08:36)
[2023-06-11] MEDS: LEVOTHYROXINE 100 MCG TAB PO SCH (08:36)
[2023-06-11] MEDS: LOSARTAN 25 MG TAB PO SCH (08:36)
[2023-06-11] MEDS: ASPIRIN 81 MG PO SCH (08:36)
[2023-06-11] MEDS: ATORVASTATIN 10 MG TAB PO SCH (08:36)
[2023-06-11] MEDS: carvediloL 12.5 MG TAB PO SCH (08:36)
[2023-06-11] MEDS: INSULIN ASPART (NovoLOG) 100 UNIT/ML VIAL SQ SCH (08:38)
[2023-06-11 08:47] LABS: INR 3.5 (<1.2); Partial Thromboplastin Time 56.5 sec (22.0-30.0); Prothrombin Time 34.6 sec (10.0-12.5)
[2023-06-11] MEDS: DEXTROSE 5% IN WATER 100 ML with AMIODARONE 150 MG IV ONE (10:56)
[2023-06-11] MEDS: AMIODARONE 360 MG in DEXTROSE 5% IN WATER 200 ML IV ONE (11:38)
--- NOTE | 2023-06-11 13:11 | P.CRDCN ---
History of Present Illness History of present illness: HISTORY OF PRESENT ILLNESS: This is a 67-year-old male with a past medical history significant for coronary artery disease with previous CABG, hypertension, hyperlipidemia, diabetes, hypo thyroidism, and paroxysmal atrial fibrillation. Patient used to follow in the office with Dr. Burnham but has not been seen since 2019. We have been asked to see the patient in consultation for atrial fibrillation. Patient examined at the bedside in the emergency room. Patient presented to the hospital with a chief complaint of generalized weakness. Patient was found to be tachycardic when EMS arrived. Patient was found to be in A-fib/flutter with RVR. Patient was started on IV Cardizem which is currently infusing at 5 mg an hour. Bedside telemetry reveals atrial flutter with a heart rate in the 70s. Patient currently denies any chest pain or pressure. He denies any shortness of breath. He does report feeling dizzy at times. Patient's blood pressures were elevated on admission. However blood pressure at the time of examination is borderline with a systolic in the 90s. Patient was also found to have supratherapeutic INR with a INR greater than 10. He received vitamin K. Repeat INR is 3.5. The patient states he takes all of his own medications at home and is responsible for managing his medications which he states he sometimes has difficulty with. DIAGNOSTICS: - EKG reveals A-fib with RVR. Bedside telemetry reveals atrial flutter with controlled ventricular rate - Chest xray hazy density in the left hemothorax most likely indicating a layering moderate pleural effusion.. - Laboratory data: WBC 14.9. Hemoglobin 10.8. Platelet count 393. Sodium 131. Potassium 4.1. BUN 46. Creatinine 2.07. Troponin 0.423. 0.442. 0.406. TSH 0.498 - Current home cardiac medications include amlodipine 5 mg twice a day, aspirin 81 mg daily, carvedilol 6.25 mg twice a day, losartan 25 mg daily, simvastatin 20 mg daily, and Coumadin 5 mg daily. - Most recent echocardiogram obtained in 2023 revealed ejection fraction 5%, basal septal akinesis, mild concentric LVH REVIEW OF SYSTEMS: At the time of my exam: CONSTITUTIONAL: Denies fever or chills. HEENT: Denies blurred vision, vision changes, or eye pain. Denies hemoptysis CARDIOVASCULAR: Denies chest pain. Denies orthopnea. Denies PND. Denies palpitations RESPIRATORY: Denies shortness of breath. GASTROINTESTINAL: Denies abdominal pain. Denies nausea or vomiting. HEMATOLOGIC: Denies bleeding disorders. GENITOURINARY: Denies any blood in urine. SKIN: Denies pruitis. Denies rash. PHYSICAL EXAM: VITAL SIGNS: Reviewed. GENERAL: Well-developed in no acute distress. HEENT: Head is normocephalic. Pupils are equal, round. Sclerae anicteric. Mucous membranes of the mouth are moist. Neck supple. No JVD or thyromegaly LUNGS: Respirations even and unlabored. Lungs essentially clear to auscultation bilaterally. HEART: Irregular rate and rhythm. S1 and S2 heard. ABDOMEN: Soft. Nondistended. Nontender. EXTREMITIES: Normal range of motion. No clubbing or cyanosis. Peripheral pulses intact. No lower extremity edema NEUROLOGIC: Awake and alert. Oriented x 3. ASSESSMENT: Generalized weakness Paroxysmal atrial fibrillation/typical atrial flutter with RVR Elevated troponins, flat, suspect type II NE Cardiomyopathy, ejection fraction 20 to 25% from echocardiogram in February 2023, appears to be new onset cardiomyopathy Supratherapeutic INR secondary to Coumadin Coronary artery disease with previous CABG Hypertension Hyperlipidemia Diabetes Hypothyroidism PLAN: Patient with cardiomyopathy noted on echo from February 2023. No documented history of cardiomyopathy. Repeat echocardiogram to assess LV function. If patient's LV systolic function remains impaired, patient will require cardiac catheterization Discontinue IV Cardizem Begin IV amiodarone bolus and drip Hold Coumadin secondary to supratherapeutic INR. Patient may be a good candidate for Eliquis or Xarelto. Will have case management check co-pay. Rx sent to pharmacy Discontinue Norvasc due to soft BP at time of examination Continue telemetry monitoring Further recommendations pending patient course Nurse practitioner note has been reviewed by physician. Signing provider agrees with the documented findings, assessment, and plan of care documented by [employer]ER as a scribe. Past Medical History Past Medical History: Diabetes Mellitus, Hyperlipidemia, Hypertension, Thyroid Disorder History of Any Multi-Drug Resistant Organisms: None Reported Past Surgical History: Coronary Bypass/CABG, Heart Catheterization With Stent Additional Past Surgical History / Comment(s): left great and second toe removal. bilat carpal tunnel. neck fusion 5-6-7. triple bypass Past Anesthesia/Blood Transfusion Reactions: No Reported Reaction Additional Past Anesthesia/Blood Transfusion Reaction / Comment(s): no blood transfusion Date of Last Stent Placement:: 02/2002 Past Psychological History: No Psychological Hx Reported Smoking Status: Former smoker Past Alcohol Use History: None Reported Past Drug Use History: None Reported Medications and Allergies Home Medications Medication Instructions Recorded Confirmed Type Ferrous Sulfate [Iron (65 MG 325 mg PO DAILY 03/04/21 06/11/23 History Elemental)] Gabapentin [Neurontin] 300 mg PO TID 03/04/21 06/11/23 History Hydroxychloroquine Sulfate 200 mg PO BID 03/04/21 06/11/23 History [Plaquenil] Levothyroxine Sodium [Synthroid] 100 mcg PO DAILY 03/04/21 06/11/23 History Simvastatin [Zocor] 20 mg PO DAILY 03/04/21 06/11/23 History Famotidine [Pepcid] 20 mg PO BID #60 tablet 03/12/21 06/11/23 Rx Sennosides [Senokot] 8.6 mg PO BID PRN tab 03/12/21 06/11/23 Rx Losartan [Cozaar] 25 mg PO DAILY #30 tab 03/13/21 06/11/23 Rx Meclizine [Antivert] 12.5 mg PO TID PRN 30 Days #90 03/13/21 06/11/23 Rx tablet amLODIPine [Norvasc] 5 mg PO BID 30 Days #60 tab 03/13/21 06/11/23 Rx Balsalazide Disodium [Colazal] 2,250 mg PO BID 03/17/23 06/11/23 History Loratadine [Claritin] 10 mg PO DAILY 03/17/23 06/11/23 History Magnesium Oxide [Magox 400] 400 mg PO DAILY 03/17/23 06/11/23 History Testosterone Cypionate 200 mg IM Q28D 03/17/23 06/11/23 History [Depo-Testosterone] Acetaminophen [Tylenol Arthritis] 1,300 mg PO Q8H PRN 06/11/23 06/11/23 History Apixaban [Eliquis] 5 mg PO BID #60 tab 06/11/23 Rx Aspirin 81 mg PO DAILY 06/11/23 06/11/23 History Insulin Glargine [Lantus Vial] 10 unit SQ DAILY 06/11/23 06/11/23 History Insuln Asp Prt/Insulin Aspart 1 dose SQ HS 06/11/23 06/11/23 History [NovoLOG MIX 70-30 VIAL] Ondansetron Odt [Zofran Odt] 4 mg PO TID PRN 06/11/23 06/11/23 History Warfarin [Coumadin] 5 mg PO DAILY 06/11/23 06/11/23 History carvediloL [Coreg] 6.25 mg PO BID 06/11/23 06/11/23 History Allergies Allergy/AdvReac Type Severity Reaction Status Date / Time Penicillins Allergy Unknown Verified 06/11/23 09:48 Childhood Physical Exam Vitals: Vital Signs Temp Pulse Resp BP Pulse Ox 06/11/23 11:30 75 21 135/72 97 06/11/23 11:00 77 23 116/59 96 06/11/23 10:58 78 116/59 98 06/11/23 08:33 103 H 154/63 97 06/11/23 06:00 117 H 18 185/84 95 06/11/23 05:00 120 H 18 156/91 98 06/11/23 04:00 129 H 18 128/65 95 06/11/23 03:00 138 H 18 123/78 97 06/11/23 02:00 93 18 114/93 95 06/11/23 00:21 128 H 18 143/93 92 L 06/10/23 21:05 125 H 18 134/98 99 06/10/23 19:58 98.8 F 151 H 18 121/53 99 Intake and Output 06/10/23 06/11/23 06/11/23 22:59 06:59 14:59 Intake Total 42.5 Balance 42.5 Intake: Intake, IV Titration 42.5 Amount Diltiazem 125 mg In 42.5 Sodium Chloride 0.9% 100 ml @ 5 MG/HR 5 mls/hr IV .Q24H [facility] Rx#:[id number] Other: Weight 86.046 kg Results 06/10/23 20:40 06/10/23 20:40 Cardiac Enzymes 06/10/23 06/10/23 06/11/23 Range/Units 20:40 20:40 02:48 AST 45 (17-59) U/L Troponin I 0.423 H* 0.442 H* (0.000-0.034) ng/mL 06/11/23 Range/Units 07:24 AST (17-59) U/L Troponin I 0.406 H* (0.000-0.034) ng/mL Coagulation 06/10/23 06/11/23 Range/Units 20:40 07:24 PT >130.0 H 34.6 H (10.0-12.5) sec APTT 113.4 H* 56.5 H (22.0-30.0) sec CBC 06/10/23 Range/Units 20:40 WBC 14.9 H (3.8-10.6) k/uL RBC 3.69 L (4.30-5.90) m/uL Hgb 10.8 L (13.0-17.5) gm/dL Hct 32.4 L (39.0-53.0) % Plt Count 393 (150-450) k/uL Comprehensive Metabolic Panel 06/10/23 Range/Units 20:40 Sodium 131 L (137-145) mmol/L Potassium 4.1 (3.5-5.1) mmol/L Chloride 96 L (98-107) mmol/L Carbon Dioxide 24 (22-30) mmol/L BUN 46 H (9-20) mg/dL Creatinine 2.07 H (0.66-1.25) mg/dL Glucose 253 H (74-99) mg/dL Calcium 9.4 (8.4-10.2) mg/dL AST 45 (17-59) U/L ALT 14 (4-49) U/L Alkaline Phosphatase 76 (38-126) U/L Total Protein 7.6 (6.3-8.2) g/dL Albumin 3.8 (3.5-5.0) g/dL Current Medications Generic Name Dose Route Start Last Admin Trade Name Freq PRN Reason Stop Dose Admin Acetaminophen 650 mg 06/10/23 23:58 Acetaminophen Tab 325 Mg Tab PO Q6HR PRN Mild Pain or Fever > 100.5 Aspirin 81 mg 06/11/23 09:00 06/11/23 08:36 Aspirin 81 Mg PO 81 mg DAILY FELA Administration Atorvastatin Calcium 10 mg 06/11/23 09:00 06/11/23 08:36 Atorvastatin 10 Mg Tab PO 10 mg DAILY FELA Administration Carvedilol 6.25 mg 06/11/23 17:30 Carvedilol 6.25 Mg Tab PO BID-W/MEALS FELA Dextrose/Water 25 ml 06/11/23 05:15 Dextrose 50% Syringe 50 Ml IVP PER PROTOCOL PRN Hypoglycemia Protocol Dextrose/Water 50 ml 06/11/23 05:15 Dextrose 50% Syringe 50 Ml IVP PER PROTOCOL PRN Hypoglycemia Protocol Gabapentin 300 mg 06/11/23 09:00 06/11/23 08:36 Gabapentin 300 Mg Cap PO 300 mg TID FELA Administration Sodium Chloride 1,000 mls @ 130 mls/hr 06/10/23 23:45 06/11/23 08:36 Saline 0.9% IV 130 mls/hr .Q7H42M FELA Administration Amiodarone HCl 360 mg/ 200 mls @ 33.333 mls/hr 06/11/23 10:40 06/11/23 11:38 Dextrose/Water IV 06/11/23 16:39 1 mg/min .Q6H ONE 33.333 mls/hr Administration Protocol 1 MG/MIN Amiodarone HCl 450 mg/ 250 mls @ 16.667 mls/hr 06/11/23 16:40 Dextrose/Water IV 06/12/23 10:39 .Q15H FELA Protocol 0.5 MG/MIN Insulin Aspart 0 unit 06/11/23 07:30 06/11/23 08:38 Insulin Aspart (Novolog) 100 Unit/Ml Vial SQ 6 unit ACHS FELA Administration Protocol Levothyroxine Sodium 100 mcg 06/11/23 06:30 06/11/23 08:36 Levothyroxine 100 Mcg Tab PO 100 mcg DAILY@0630 FELA Administration Losartan Potassium 25 mg 06/11/23 09:00 06/11/23 08:36 Losartan 25 Mg Tab PO 25 mg DAILY FELA Administration Magnesium Oxide 400 mg 06/11/23 09:00 06/11/23 08:36 Magnesium Oxide 400 Mg Tab PO 400 mg DAILY FELA Administration Naloxone HCl 0.2 mg 06/10/23 23:58 Naloxone 0.4 Mg/Ml 1 Ml Vial IV Q2M PRN Opioid Reversal Intake and Output 06/10/23 06/11/23 06/11/23 22:59 06:59 14:59 Intake Total 42.5 Balance 42.5 Intake: Intake, IV Titration 42.5 Amount Diltiazem 125 mg In 42.5 Sodium Chloride 0.9% 100 ml @ 5 MG/HR 5 mls/hr IV .Q24H [facility] Rx#:[id number] Other: Weight 86.046 kg 06/10/23 20:40 06/10/23 20:40
--- NOTE | 2023-06-11 13:24 | P.HPIM ---
History of Present Illness H&P Date: 06/11/23 History of present illness; Patient is a 67-year-old male with a past medical history of coronary artery disease status post CABG, and stent placement, hypertension, diabetes type 2 insulin-dependent, hypothyroidism brought to the ER for generalized weakness. Patient stated that he has been feeling weak for the last few days. Denies any fever or chills at home. Denies any nausea or vomiting. Patient stated that he was having reduced energy level and having a hard time ambulating. Denies any fever but stated that he was feeling cold at home. Denies any chest pain. no complaint of shortness of breath. There is no current complaint of orthopnea or PND. Because of the symptoms, patient brought to the ER Initial lab work done in the ER showed WBC 14.9, hemoglobin 10.8, platelet count 393, INR greater than 10 PT greater than 130 sodium 139, potassium 4.1, BUN 46, creatinine 2.07 troponin 0.423 EKG done in the ER showed heart rate of 149, no ST segment elevation or depression seen, no T-wave inversions seen. Chest x-ray done in the ER hazy density in the left hemithorax and most likely indicating moderate pleural effusion. CT head done showed no acute intracranial process Patient admitted to internal medicine service REVIEW OF SYSTEMS: CONSTITUTIONAL: As mentioned above HEENT: No recent visual problems or hearing problems. Denied any sore throat. CARDIOVASCULAR: No chest pain, orthopnea, PND, no palpitations, no syncope. PULMONARY: As mentioned above GASTROINTESTINAL: No diarrhea, no nausea, no vomiting, no abdominal pain. NEUROLOGICAL: No headaches, no weakness, no numbness. HEMATOLOGICAL: Denies any bleeding or petechiae. GENITOURINARY: Denies any burning micturition, frequency, or urgency. MUSCULOSKELETAL/RHEUMATOLOGICAL: Denies any joint pain, swelling, or any muscle pain. ENDOCRINE: Denies any polyuria or polydipsia. The rest of the 14-point review of systems is negative. PHYSICAL EXAMINATION: GENERAL: The patient is alert and oriented x3, not in any acute distress. Well developed, well nourished. HEENT: Pupils are round and equally reacting to light. EOMI. No scleral icterus. No conjunctival pallor. Normocephalic, atraumatic. No pharyngeal erythema. No thyromegaly. CARDIOVASCULAR: S1 and S2 present. No murmurs, rubs, or gallops. Tachycardic, PULMONARY: Chest is clear to auscultation, no wheezing or crackles. ABDOMEN: Soft, nontender, nondistended, normoactive bowel sounds. No palpable organomegaly. MUSCULOSKELETAL: No joint swelling or deformity. EXTREMITIES: No cyanosis, clubbing, or pedal edema. NEUROLOGICAL: Gross neurological examination did not reveal any focal deficits. SKIN: No rashes. Assessment and plan A-fib with RVR Supratherapeutic INR Generalized weakness Coronary artery disease status post CABG Hypertension Dyslipidemia Hypothyroidism chronic kidney disease stage III Uncontrolled diabetes mellitus type 2 Hypercoagulopathy on presentation Monitor vital signs Monitor CBC Monitor CMP Continue telemetry monitoring Ordered blood cultures Ordered UA Continue to monitor troponin INR is elevated, patient received 1 dose of vitamin K, recheck INR. Continue Cardizem drip Resume home meds Monitor blood sugar levels, continue sliding scale insulin Consult cardiology Labs and medication were reviewed.. Continue same treatment. Continue with symptomatic treatment. Resume home medication. Monitor labs and vitals. DVT and GI prophylaxis. Further recommendations as per clinical course of the patie nt Dictation was produced using [employer] dictation software. please excuse any grammatical, word or spelling errors. Past Medical History Past Medical History: Diabetes Mellitus, Hyperlipidemia, Hypertension, Thyroid Disorder History of Any Multi-Drug Resistant Organisms: None Reported Past Surgical History: Coronary Bypass/CABG, Heart Catheterization With Stent Additional Past Surgical History / Comment(s): left great and second toe removal. bilat carpal tunnel. neck fusion 5-6-7. triple bypass Past Anesthesia/Blood Transfusion Reactions: No Reported Reaction Additional Past Anesthesia/Blood Transfusion Reaction / Comment(s): no blood transfusion Date of Last Stent Placement:: 02/2002 Past Psychological History: No Psychological Hx Reported Smoking Status: Former smoker Past Alcohol Use History: None Reported Past Drug Use History: None Reported Medications and Allergies Home Medications Medication Instructions Recorded Confirmed Type Aspirin EC [Ecotrin Low Dose] 81 mg PO DAILY 03/04/21 03/17/23 History Ferrous Sulfate [Iron (65 MG 325 mg PO DAILY 03/04/21 03/17/23 History Elemental)] Gabapentin [Neurontin] 300 mg PO TID 03/04/21 03/17/23 History Hydroxychloroquine Sulfate 200 mg PO BID 03/04/21 03/17/23 History [Plaquenil] Levothyroxine Sodium [Synthroid] 100 mcg PO DAILY 03/04/21 03/17/23 History Simvastatin [Zocor] 20 mg PO DAILY 03/04/21 03/17/23 History Famotidine [Pepcid] 20 mg PO BID #60 tablet 03/12/21 03/17/23 Rx Sennosides [Senokot] 8.6 mg PO BID PRN tab 03/12/21 03/17/23 Rx Losartan [Cozaar] 25 mg PO DAILY #30 tab 03/13/21 03/17/23 Rx Meclizine [Antivert] 12.5 mg PO TID PRN 30 Days #90 03/13/21 03/17/23 Rx tablet amLODIPine [Norvasc] 5 mg PO BID 30 Days #60 tab 03/13/21 03/17/23 Rx Acetaminophen Tab [Tylenol] 500 - 1,000 mg PO Q4H PRN 03/17/23 03/17/23 History Balsalazide Disodium [Colazal] 2,250 mg PO TID 03/17/23 03/17/23 History Loratadine [Claritin] 10 mg PO DAILY 03/17/23 03/17/23 History Magnesium Oxide [Magox 400] 400 mg PO DAILY 03/17/23 03/17/23 History Testosterone Cypionate 200 mg IM Q28D 03/17/23 03/17/23 History [Depo-Testosterone] Atorvastatin [Lipitor] 10 mg PO DAILY tab 03/24/23 Rx Cefepime [Maxipime] 2 gm IVPB Q12HR each 03/24/23 Rx INSULIN ASPART (NovoLOG) [NovoLOG 0 unit SQ ACHS each 03/24/23 Rx (formulary)] Insuln Asp Prt/Insulin Aspart 35 unit SQ HS each 03/24/23 Rx [NovoLOG MIX 70-30 VIAL] Warfarin [Coumadin] 2 mg PO DAILY #30 tab 03/24/23 Rx carvediloL [Coreg*] 12.5 mg PO BID-W/MEALS tab 03/24/23 Rx Allergies Allergy/AdvReac Type Severity Reaction Status Date / Time Penicillins Allergy Unknown Verified 06/10/23 20:05 Childhood Physical Exam Vitals: Vital Signs Temp Pulse Resp BP Pulse Ox 06/11/23 08:33 103 H 154/63 97 06/11/23 06:00 117 H 18 185/84 95 06/11/23 05:00 120 H 18 156/91 98 06/11/23 04:00 129 H 18 128/65 95 06/11/23 03:00 138 H 18 123/78 97 06/11/23 02:00 93 18 114/93 95 06/11/23 00:21 128 H 18 143/93 92 L 06/10/23 21:05 125 H 18 134/98 99 06/10/23 19:58 98.8 F 151 H 18 121/53 99 Intake and Output 06/10/23 06/11/23 06/11/23 22:59 06:59 14:59 Intake Total 42.5 Balance 42.5 Intake: Intake, IV Titration 42.5 Amount Diltiazem 125 mg In 42.5 Sodium Chloride 0.9% 100 ml @ 5 MG/HR 5 mls/hr IV .Q24H [facility] Rx#:[id number] Other: Weight 86.046 kg Results CBC & Chem 7: 06/10/23 20:40 06/10/23 20:40 Labs: Abnormal Lab Results - Last 24 Hours (Table) 06/10/23 06/10/23 06/10/23 Range/Units 20:05 20:40 20:40 WBC 14.9 H (3.8-10.6) k/uL RBC 3.69 L (4.30-5.90) m/uL Hgb 10.8 L (13.0-17.5) gm/dL Hct 32.4 L (39.0-53.0) % Neutrophils # 13.5 H (1.3-7.7) k/uL Lymphocytes # 0.4 L (1.0-4.8) k/uL PT >130.0 H (10.0-12.5) sec INR >10.0 H* (<1.2) APTT 113.4 H* (22.0-30.0) sec Sodium (137-145) mmol/L Chloride (98-107) mmol/L BUN (9-20) mg/dL Creatinine (0.66-1.25) mg/dL Glucose (74-99) mg/dL POC Glucose (mg/dL) 259 H (70-110) mg/dL Troponin I (0.000-0.034) ng/mL 06/10/23 06/10/23 06/11/23 Range/Units 20:40 20:40 02:48 WBC (3.8-10.6) k/uL RBC (4.30-5.90) m/uL Hgb (13.0-17.5) gm/dL Hct (39.0-53.0) % Neutrophils # (1.3-7.7) k/uL Lymphocytes # (1.0-4.8) k/uL PT (10.0-12.5) sec INR (<1.2) APTT (22.0-30.0) sec Sodium 131 L (137-145) mmol/L Chloride 96 L (98-107) mmol/L BUN 46 H (9-20) mg/dL Creatinine 2.07 H (0.66-1.25) mg/dL Glucose 253 H (74-99) mg/dL POC Glucose (mg/dL) (70-110) mg/dL Troponin I 0.423 H* 0.442 H* (0.000-0.034) ng/mL 06/11/23 06/11/23 06/11/23 Range/Units 07:24 07:24 07:33 WBC (3.8-10.6) k/uL RBC (4.30-5.90) m/uL Hgb (13.0-17.5) gm/dL Hct (39.0-53.0) % Neutrophils # (1.3-7.7) k/uL Lymphocytes # (1.0-4.8) k/uL PT 34.6 H (10.0-12.5) sec INR 3.5 H (<1.2) APTT 56.5 H (22.0-30.0) sec Sodium (137-145) mmol/L Chloride (98-107) mmol/L BUN (9-20) mg/dL Creatinine (0.66-1.25) mg/dL Glucose (74-99) mg/dL POC Glucose (mg/dL) 264 H (70-110) mg/dL Troponin I 0.406 H* (0.000-0.034) ng/mL
[2023-06-11 17:15] LABS: Glucose,Whole Blood 268 mg/dL (70-110)
--- NOTE | 2023-06-11 17:29 | CA ---
Transthoracic Echo Report Name: James Clark Age: 67 Gender: M : 1955 Exam Date: 06/11/2023 15:35 Exam Location: [place] [facility] Ht (in): 71 Wt (lb): 189 Ordering Physician: Concepcion Cruz Attending/Referring Phys: [id number], Nancy Circulation Man Isela Rolon RDCS Procedure CPT: Indications: LV function, AF RVR, elevated trops Cardiac Hx: Technical Quality: Technically difficult study Contrast 1: Definity Total Dose (mL): 2 Contrast 2: Total Dose (mL): MEASUREMENTS (Male / Female) Normal Values 2D ECHO LV Diastolic Diameter PLAX 5.7 cm 4.2 - 5.9 / 3.9 - 5.3 cm LV Systolic Diameter PLAX 4.8 cm IVS Diastolic Thickness 1.1 cm 0.6 - 1.0 / 0.6 - 0.9 cm LVPW Diastolic Thickness 1.3 cm 0.6 - 1.0 / 0.6 - 0.9 cm LV Relative Wall Thickness 0.4 RV Internal Dim ED PLAX 3.8 cm LA Systolic Diameter LX 3.9 cm 3.0 - 4.0 / 2.7 - 3.8 cm LV Diastolic Volume MOD BP 125.2 cm??? 67 - 155 / 56 - 104 cm??? LV Systolic Volume MOD BP 77.8 cm??? 22 - 58 / 19 - 49 cm??? LV Ejection Fraction MOD BP 37.9 % >= 55 % LV Cardiac Index MOD BP 1638.6 cm???/min???m??? LV Diastolic Volume MOD 4C 133.4 cm??? LV Systolic Volume MOD 4C 87.8 cm??? LV Ejection Fraction MOD 4C 34.2 % LV Cardiac Index MOD 4C 1577.3 cm???/min???m??? LV Diastolic Length 4C 7.4 cm LV Systolic Length 4C 6.8 cm LV Diastolic Volume MOD 2C 113.7 cm??? LV Systolic Volume MOD 2C 69.4 cm??? LV Ejection Fraction MOD 2C 39.0 % LV Cardiac Index MOD 2C 1530.8 cm???/min???m??? LV Diastolic Length 2C 7.8 cm LV Systolic Length 2C 6.9 cm LA Volume 83.1 cm??? 18 - 58 / 22 - 52 cm??? LA Volume Index 39.9 cm???/m??? 16 - 28 cm???/m??? M-MODE Aortic Root Diameter MM 3.5 cm MV E Point Septal Separation 1.7 cm AV Cusp Separation MM 1.9 cm DOPPLER AV Peak Velocity 112.0 cm/s AV Peak Gradient 5.0 mmHg MV Area PHT 7.1 cm??? Mitral E Point Velocity 118.4 cm/s Mitral A Point Velocity 49.1 cm/s Mitral E to A Ratio 2.4 MV Deceleration Time 106.2 ms TR Peak Velocity 275.7 cm/s TR Peak Gradient 30.4 mmHg Right Ventricular Systolic Press 35.4 mmHg FINDINGS Left Ventricle Left ventricular ejection fraction is estimated at 30-35 %. Mildly increased septal wall thickness. Moderately increased left ventricular systolic volume. Moderately decreased left ventricular ejection fraction. Right Ventricle Mild right ventricular dilatation. Mild pulmonary hypertension. Right Atrium Right atrium not well visualized. Left Atrium Moderately increased left atrial volume. Mildly increased left atrial area. Mitral Valve Structurally normal mitral valve. Trace to mild mitral regurgitation. Aortic Valve Trileaflet aortic valve. No aortic valve stenosis or regurgitation. Tricuspid Valve Structurally normal tricuspid valve. Mild tricuspid regurgitation. Pulmonic Valve Pulmonic valve not well visualized. No pulmonic regurgitation. Pericardium No pericardial effusion. Aorta Normal size aortic root and proximal ascending aorta. CONCLUSIONS Moderate to severe LV dysfunction with an ejection fraction of 30-35% Mild pulmonary hypertension Previewed by: Dr. Ramirez Burnham MD (Electronically Signed) Final Date: 11 June 2023 17:28
[2023-06-11] MEDS: AMIODARONE 450 MG in DEXTROSE 5% IN WATER 250 ML IV SCH (17:36)
[2023-06-11] MEDS: carvediloL 6.25 MG TAB PO SCH (17:43)
[2023-06-11 18:25] LABS: Appearance,Urine Cloudy (Clear); Bacteria,Urine Few /hpf; Bilirubin,Urine Negative (Negative); Blood,Urine Small (Negative); Budding Yeast,Urine Few /hpf; Color,Urine Yellow; Glucose,Urine (UA) 1+ (Negative); Ketones,Urine Trace (Negative); Leukocyte Esterase,Urine Large (Negative); Nitrite,Urine Negative (Negative); PH, Urine 5.5 (5.0-8.0); Protein,Urine 2+ (Negative); RBC,Urine 4 /hpf (0-5); Specific Gravity,Urine 1.019 (1.001-1.035); Urobilinogen,Urine <2.0 mg/dL (<2.0); WBC,Urine >182 /hpf (0-5)
[2023-06-11] MEDS: VANCOMYCIN 1,500 MG in SODIUM CHLORIDE 0.9% 500 ML 500 ML IVPB ONE (18:56)
[2023-06-11 20:09] LABS: Glucose,Whole Blood 186 mg/dL (70-110)
[2023-06-12 06:12] LABS: Glucose,Whole Blood 198 mg/dL (70-110)
[2023-06-12 06:53] LABS: INR 1.2 (<1.2); Prothrombin Time 12.7 sec (10.0-12.5)
[2023-06-12 06:59] LABS: ALT 20 U/L (4-49); AST 73 U/L (17-59); African American GFR (CKD) 52 (>60 ml/min/1.73 sqM); Albumin 2.6 g/dL (3.5-5.0); Alkaline Phosphatase 70 U/L (38-126); Anion Gap 9 mmol/L; Blood Urea Nitrogen 37 mg/dL (9-20); Calcium 8.4 mg/dL (8.4-10.2); Carbon Dioxide 22 mmol/L (22-30); Chloride 104 mmol/L (98-107); Glucose 190 mg/dL (74-99); Non-African American GFR(CKD) 45 (>60 ml/min/1.73 sqM); Potassium 4.3 mmol/L (3.5-5.1); Sodium 135 mmol/L (137-145); Total Bilirubin 0.7 mg/dL (0.2-1.3); Total Protein 5.3 g/dL (6.3-8.2)
[2023-06-12 07:19] LABS: C Reactive Protein 26.1 mg/dL (<1.0)
[2023-06-12 07:33] LABS: Basophils % (A) 1 %; Eosinophils # (A) 0.2 k/uL (0-0.7); Eosinophils % (A) 2 %; HCT 27.7 % (39.0-53.0); Lymphocytes # (A) 0.5 k/uL (1.0-4.8); Lymphocytes % (A) 5 %; MCH 28.6 pg (25.0-35.0); MCHC 31.8 g/dL (31.0-37.0); MCV 89.8 fL (80.0-100.0); Mean Platelet Volume 7.9; Monocytes # (A) 0.6 k/uL (0-1.0); Monocytes % (A) 7 %; Neutrophils # (A) 7.6 k/uL (1.3-7.7); Neutrophils % (A) 85 %; Platelet Count 360 k/uL (150-450); RBC 3.08 m/uL (4.30-5.90); RDW 12.7 % (11.5-15.5)
[2023-06-12 07:41] LABS: HGB 8.8 gm/dL (13.0-17.5)
--- NOTE | 2023-06-12 09:24 | US ---
EXAMINATION TYPE: US kidneys/renal and bladder DATE OF EXAM: 06/12/2023 COMPARISON: NONE CLINICAL INDICATION: Male, 67 years old with history of uti and bacteremia; UTI, bacteremia EXAM MEASUREMENTS: Right Kidney: 10.9 x 4.9 x 4.9 cm Left Kidney: 10.9 x 6.0 x 4.7 cm Right Kidney: 4 mm echogenic focus at the lower pole. No hydronephrosis. Left Kidney: no evidence of hydronephrosis Bladder: wall = 0.5cm. possible debris posteriorly Bilateral Jets seen: no IMPRESSION: 1. No hydronephrosis. 2. There may be a punctate 4 mm nonobstructive right renal stone. 3. Mild circumferential bladder wall thickening possibly with some minimal dependent debris.
--- NOTE | 2023-06-12 10:48 | P.PN ---
Subjective Progress Note Date: 06/12/23 Principal diagnosis: Atrial fibrillation The patient is a 67-year-old gentleman with coronary artery disease status post CABG as well as cardiomyopathy with the most recent echo during this admission showed an EF between 30 to 35% as well as hypertension and dyslipidemia and atr ial fibrillation which was paroxysmal was on oral anticoagulation with Coumadin was admitted to the hospital with shortness of breath. He was in atrial fibrillation with rapid ventricular response. Troponin was mildly elevated. The echo revealed impaired LV function with EF between 30 to 35%. June 12, 2023 The patient was seen and evaluated this morning. He is feeling better. The shortness of breath has improved. No pain in the chest. No dizziness or lightheadedness and no feeling of heart racing or fluttering and no presyncope or syncope. He continues to be in atrial fibrillation with controlled heart rate. I am going to DC amiodarone IV and start the patient on amiodarone orally and also consider starting the patient on heparin right now for possible need of heart catheterization if the cardiomyopathy is noted. Please note that his hemoglobin is low and drop to about 8 from 10. We are checking for any BLOOD in the stool. Meanwhile start the patient on heparin IV and consider oral anticoagulation down the line. The examination revealed irregular rhythm with a systolic murmur and diminished breathing sounds bilaterally and no edema was noted Assessment Atrial fibrillation with rapid ventricular response History of paroxysmal atrial fibrillation Coronary artery disease and status post CABG Ischemic cardiomyopathy with an ejection fraction around 35% Anemia Supratherapeutic INR Multiple comorbid conditions including diabetes and hypertension dyslipidemia Plan DC Coumadin Start the patient on heparin IV Consider oral anticoagulation Consider workup for cardiomyopathy Consider maximize medical treatment for cardiomyopathy Rule out any gastrointestinal bleeding Start the patient on heparin meanwhile Objective - Vital Signs Vital signs: Vital Signs Temp 98.6 F 06/12/23 09:05 Pulse 74 06/12/23 09:05 Resp 17 06/12/23 09:05 BP 138/81 06/12/23 09:05 Pulse Ox 99 06/12/23 09:05 FiO2 Intake & Output 06/11/23 06/12/23 06/12/23 18:59 06:59 18:59 Intake Total 42.5 250 Output Total 450 Balance 42.5 -450 250 Weight 86.046 kg Intake: Intake, IV Titration 42.5 250 Amount Amiodarone 450 mg In 250 Dextrose 5% in Water 250 ml @ 0.5 MG/MIN 16.667 mls/hr IV .Q15H [facility] Rx#: [id number] Diltiazem 125 mg In 42.5 Sodium Chloride 0.9% 100 ml @ 5 MG/HR 5 mls/hr IV .Q24H [facility] Rx#:[id number] Output: Urine 450 Other: Voiding Method External Catheter External Catheter - Labs CBC & Chem 7: 06/12/23 06:15 06/12/23 06:15 Labs: Abnormal Lab Results - Last 24 Hours (Table) 06/11/23 06/11/23 06/11/23 Range/Units 07:24 17:14 17:50 RBC (4.30-5.90) m/uL Hgb (13.0-17.5) gm/dL Hct (39.0-53.0) % Lymphocytes # (1.0-4.8) k/uL PT (10.0-12.5) sec INR (<1.2) Sodium (137-145) mmol/L BUN (9-20) mg/dL Creatinine (0.66-1.25) mg/dL Glucose (74-99) mg/dL POC Glucose (mg/dL) 268 H (70-110) mg/dL Hemoglobin A1c (<=6.0) % AST (17-59) U/L C-Reactive Protein (<1.0) mg/dL Total Protein (6.3-8.2) g/dL Albumin (3.5-5.0) g/dL Procalcitonin 0.50 H (0.02-0.09) ng/mL Urine Protein 2+ H (Negative) Urine Glucose (UA) 1+ H (Negative) Urine Ketones Trace H (Negative) Urine Blood Small H (Negative) Ur Leukocyte Esterase Large H (Negative) Urine WBC >182 H (0-5) /hpf Urine Bacteria Few H (None) /hpf Urine Yeast (Budding) Few H (None) /hpf 06/11/23 06/12/23 06/12/23 Range/Units 20:07 06:10 06:15 RBC (4.30-5.90) m/uL Hgb (13.0-17.5) gm/dL Hct (39.0-53.0) % Lymphocytes # (1.0-4.8) k/uL PT (10.0-12.5) sec INR (<1.2) Sodium (137-145) mmol/L BUN (9-20) mg/dL Creatinine (0.66-1.25) mg/dL Glucose (74-99) mg/dL POC Glucose (mg/dL) 186 H 198 H (70-110) mg/dL Hemoglobin A1c 7.8 H (<=6.0) % AST (17-59) U/L C-Reactive Protein (<1.0) mg/dL Total Protein (6.3-8.2) g/dL Albumin (3.5-5.0) g/dL Procalcitonin (0.02-0.09) ng/mL Urine Protein (Negative) Urine Glucose (UA) (Negative) Urine Ketones (Negative) Urine Blood (Negative) Ur Leukocyte Esterase (Negative) Urine WBC (0-5) /hpf Urine Bacteria (None) /hpf Urine Yeast (Budding) (None) /hpf 06/12/23 06/12/23 06/12/23 Range/Units 06:15 06:15 06:15 RBC 3.08 L (4.30-5.90) m/uL Hgb 8.8 L D (13.0-17.5) gm/dL Hct 27.7 L (39.0-53.0) % Lymphocytes # 0.5 L (1.0-4.8) k/uL PT 12.7 H (10.0-12.5) sec INR 1.2 H (<1.2) Sodium 135 L (137-145) mmol/L BUN 37 H (9-20) mg/dL Creatinine 1.57 H (0.66-1.25) mg/dL Glucose 190 H (74-99) mg/dL POC Glucose (mg/dL) (70-110) mg/dL Hemoglobin A1c (<=6.0) % AST 73 H (17-59) U/L C-Reactive Protein 26.1 H (<1.0) mg/dL Total Protein 5.3 L (6.3-8.2) g/dL Albumin 2.6 L (3.5-5.0) g/dL Procalcitonin (0.02-0.09) ng/mL Urine Protein (Negative) Urine Glucose (UA) (Negative) Urine Ketones (Negative) Urine Blood (Negative) Ur Leukocyte Esterase (Negative) Urine WBC (0-5) /hpf Urine Bacteria (None) /hpf Urine Yeast (Budding) (None) /hpf Microbiology - Last 24 Hours (Table) 06/10/23 22:15 Blood Culture Gram Stain - Preliminary Blood Blood Culture - Preliminary Molecular ID 06/10/23 22:00 Blood Culture Gram Stain - Preliminary Blood
[2023-06-12] MEDS: HEPARIN SOD,PORK IN 0.45% NACL 25,000 UNIT in 0.45% NACL 1 250ML.BAG IV SCH (10:54)
[2023-06-12] MEDS: HEPARIN SODIUM 1,000 UN/ML (10ML VL) IV ONE (10:54)
[2023-06-12] MEDS: AMIODARONE 200 MG TAB PO SCH (10:54)
[2023-06-12 11:18] LABS: Glucose,Whole Blood 270 mg/dL (70-110)
[2023-06-12 11:53] LABS: Basophils # (A) 0.1 k/uL (0-0.2); Basophils % (A) 1 %; Eosinophils # (A) 0.2 k/uL (0-0.7); Eosinophils % (A) 2 %; HCT 26.9 % (39.0-53.0); HGB 8.9 gm/dL (13.0-17.5); Hypochromasia Slight; Lymphocytes # (A) 0.5 k/uL (1.0-4.8); Lymphocytes % (A) 5 %; MCH 29.4 pg (25.0-35.0); Mean Platelet Volume 7.9; Monocytes # (A) 0.5 k/uL (0-1.0); Monocytes % (A) 6 %; Neutrophils # (A) 7.6 k/uL (1.3-7.7); Neutrophils % (A) 85 %; Platelet Count 328 k/uL (150-450); RBC 3.02 m/uL (4.30-5.90); RDW 12.5 % (11.5-15.5)
[2023-06-12 12:05] LABS: INR 1.2 (<1.2); Prothrombin Time 13.1 sec (10.0-12.5)
[2023-06-12 12:28] VITALS: BMI 26.4
[2023-06-12] MEDS: VANCOMYCIN 1,500 MG in SODIUM CHLORIDE 0.9% 500 ML 500 ML IVPB SCH (12:54)
--- NOTE | 2023-06-12 13:31 | XR ---
EXAMINATION TYPE: XR foot complete 3 views bilateral DATE OF EXAM: 06/12/2023 Comparison: Left foot 03/17/2023 and right foot 10/31/2021 Clinical History: 67-year-old male diabetic right foot ulcer ?osteo Findings: Left: Previous great toe amputation. There is an ulcer at the amputation stump and chronic appearing bone l oss at the osteotomy margin. Bone loss of the second metatarsal head and neck is unchanged. Degenerat amber change. MTP joint. Vascular calcifications. Small posterior and plantar heel spurs. No acute frac ture seen. Right: There is a soft tissue ulcer along the plantar lateral aspect of the forefoot/midfoot. Diffuse soft t issue swelling is present. Chronic-appearing osseous deformity of the fifth metatarsal and base of th e fifth proximal phalanx. No definite lytic destruction or suspicious periosteitis is seen. Vascular calcifications. Previous third toe amputation. Small posterior and plantar heel spurs. Impression: Left: 1. Previous great toe amputation. Ulcer at the amputation stump with chronic appearing bone loss at t he osteotomy margin. No convincing radiographic findings of osteomyelitis at this time. Right: 2. Soft tissue ulcer along the plantar lateral aspect of the forefoot/midfoot. 3. Underlying chronic appearing bony deformity of the fifth metatarsal and base of the fifth proximal phalanx. Changes seem to represent healed bone compared to 10/31/2021. 4. Diffuse soft tissue swelling may reflect cellulitis. No convincing radiographic evidence of osteom yelitis at this time.
--- NOTE | 2023-06-12 14:17 | P.PN ---
Subjective Progress Note Date: 06/12/23 Patient is a 67-year-old male with a past medical history of coronary artery disease status post CABG, and stent placement, hypertension, diabetes type 2 insulin-dependent, hypothyroidism brought to the ER for generalized weakness. Patient stated that he has been feeling weak for the last few days. Denies any fever or chills at home. Denies any nausea or vomiting. Patient stated that he was having reduced energy level and having a hard time ambulating. Denies any fever but stated that he was feeling cold at home. Denies any chest pain. no complaint of shortness of breath. There is no current complaint of orthopnea or PND. Because of the symptoms, patient brought to the ER Initial lab work done in the ER showed WBC 14.9, hemoglobin 10.8, platelet count 393, INR greater than 10 PT greater than 130 sodium 139, potassium 4.1, BUN 46, creatinine 2.07 troponin 0.423 EKG done in the ER showed heart rate of 149, no ST segment elevation or depression seen, no T-wave inversions seen. Chest x-ray done in the ER hazy density in the left hemithorax and most likely indicating moderate pleural effusion. CT head done showed no acute intracranial process Patient admitted to internal medicine service 06/11. Patient seen and examined. Blood cultures are positive for MRSA, currently on vancomycin and ID has been consulted. complaining of lethargy and weakness REVIEW OF SYSTEMS: CONSTITUTIONAL: No fever, no malaise,. CARDIOVASCULAR: No chest pain, no palpitations, no syncope. PULMONARY: No shortness of breath, no cough, GASTROINTESTINAL: No diarrhea, no nausea, no vomiting, no abdominal pain. NEUROLOGICAL: No headaches, no weakness, PHYSICAL EXAMINATION: GENERAL: The patient is alert and oriented x3, not in any acute distress. Well developed, well nourished. HEENT: Pupils are round and equally reacting to light. EOMI. No scleral icterus. No conjunctival pallor. Normocephalic, atraumatic. No pharyngeal erythema. No thyromegaly. CARDIOVASCULAR: S1 and S2 present. No murmurs, rubs, or gallops. PULMONARY: Chest is clear to auscultation, no wheezing or crackles. ABDOMEN: Soft, nontender, nondistended, normoactive bowel sounds. No palpable organomegaly. MUSCULOSKELETAL: No joint swelling or deformity. EXTREMITIES: No cyanosis, clubbing, or pedal edema. NEUROLOGICAL: Gross neurological examination did not reveal any focal deficits. SKIN: No rashes. Assessment and plan MRSA bacteremia A-fib with RVR Supratherapeutic INR Generalized weakness Coronary artery disease status post CABG Hypertension Dyslipidemia Hypothyroidism chronic kidney disease stage III Uncontrolled diabetes mellitus type 2 Hypercoagulopathy on presentation Monitor vital signs Monitor CBC Monitor CMP Continue telemetry monitoring blood culture positive for MRSA, repeat blood cultures ordered pharmacy to dose heparin ordered. Continue amiodarone Continue aspirin, Lipitor, Coreg continue pharmacy dose vancomycin Monitor blood sugar levels, continue sliding scale insulin cardiology following ID consulted Labs and medication were reviewed.. Continue same treatment. Continue with symptomatic treatment. Resume home medication. Monitor labs and vitals. DVT and GI prophylaxis. Further recommendations as per clinical course of the patient Dictation was produced using [employer] dictation software. please excuse any grammatical, word or spelling errors. Objective - Vital Signs Vital signs: Vital Signs Temp 98.6 F 06/12/23 09:05 Pulse 74 06/12/23 09:05 Resp 17 06/12/23 09:05 BP 138/81 06/12/23 09:05 Pulse Ox 99 06/12/23 09:05 FiO2 Intake & Output 06/11/23 06/12/23 06/12/23 18:59 06:59 18:59 Intake Total 42.5 250 Output Total 450 Balance 42.5 -450 250 Weight 86.046 kg Intake: Intake, IV Titration 42.5 250 Amount Amiodarone 450 mg In 250 Dextrose 5% in Water 250 ml @ 0.5 MG/MIN 16.667 mls/hr IV .Q15H [facility] Rx#: [id number] Diltiazem 125 mg In 42.5 Sodium Chloride 0.9% 100 ml @ 5 MG/HR 5 mls/hr IV .Q24H [facility] Rx#:[id number] Output: Urine 450 Other: Voiding Method External Catheter External Catheter - Labs CBC & Chem 7: 06/12/23 11:20 06/12/23 06:15 Labs: Abnormal Lab Results - Last 24 Hours (Table) 06/11/23 06/11/23 06/11/23 Range/Units 07:24 17:14 17:50 RBC (4.30-5.90) m/uL Hgb (13.0-17.5) gm/dL Hct (39.0-53.0) % Lymphocytes # (1.0-4.8) k/uL PT (10.0-12.5) sec INR (<1.2) Sodium (137-145) mmol/L BUN (9-20) mg/dL Creatinine (0.66-1.25) mg/dL Glucose (74-99) mg/dL POC Glucose (mg/dL) 268 H (70-110) mg/dL Hemoglobin A1c (<=6.0) % AST (17-59) U/L C-Reactive Protein (<1.0) mg/dL Total Protein (6.3-8.2) g/dL Albumin (3.5-5.0) g/dL Procalcitonin 0.50 H (0.02-0.09) ng/mL Urine Protein 2+ H (Negative) Urine Glucose (UA) 1+ H (Negative) Urine Ketones Trace H (Negative) Urine Blood Small H (Negative) Ur Leukocyte Esterase Large H (Negative) Urine WBC >182 H (0-5) /hpf Urine Bacteria Few H (None) /hpf Urine Yeast (Budding) Few H (None) /hpf 06/11/23 06/12/23 06/12/23 Range/Units 20:07 06:10 06:15 RBC (4.30-5.90) m/uL Hgb (13.0-17.5) gm/dL Hct (39.0-53.0) % Lymphocytes # (1.0-4.8) k/uL PT (10.0-12.5) sec INR (<1.2) Sodium (137-145) mmol/L BUN (9-20) mg/dL Creatinine (0.66-1.25) mg/dL Glucose (74-99) mg/dL POC Glucose (mg/dL) 186 H 198 H (70-110) mg/dL Hemoglobin A1c 7.8 H (<=6.0) % AST (17-59) U/L C-Reactive Protein (<1.0) mg/dL Total Protein (6.3-8.2) g/dL Albumin (3.5-5.0) g/dL Procalcitonin (0.02-0.09) ng/mL Urine Protein (Negative) Urine Glucose (UA) (Negative) Urine Ketones (Negative) Urine Blood (Negative) Ur Leukocyte Esterase (Negative) Urine WBC (0-5) /hpf Urine Bacteria (None) /hpf Urine Yeast (Budding) (None) /hpf 06/12/23 06/12/23 06/12/23 Range/Units 06:15 06:15 06:15 RBC 3.08 L (4.30-5.90) m/uL Hgb 8.8 L D (13.0-17.5) gm/dL Hct 27.7 L (39.0-53.0) % Lymphocytes # 0.5 L (1.0-4.8) k/uL PT 12.7 H (10.0-12.5) sec INR 1.2 H (<1.2) Sodium 135 L (137-145) mmol/L BUN 37 H (9-20) mg/dL Creatinine 1.57 H (0.66-1.25) mg/dL Glucose 190 H (74-99) mg/dL POC Glucose (mg/dL) (70-110) mg/dL Hemoglobin A1c (<=6.0) % AST 73 H (17-59) U/L C-Reactive Protein 26.1 H (<1.0) mg/dL Total Protein 5.3 L (6.3-8.2) g/dL Albumin 2.6 L (3.5-5.0) g/dL Procalcitonin (0.02-0.09) ng/mL Urine Protein (Negative) Urine Glucose (UA) (Negative) Urine Ketones (Negative) Urine Blood (Negative) Ur Leukocyte Esterase (Negative) Urine WBC (0-5) /hpf Urine Bacteria (None) /hpf Urine Yeast (Budding) (None) /hpf Microbiology - Last 24 Hours (Table) 06/10/23 22:15 Blood Culture Gram Stain - Preliminary Blood Blood Culture - Preliminary Molecular ID 06/10/23 22:00 Blood Culture Gram Stain - Preliminary Blood
[2023-06-12 16:20] LABS: Glucose,Whole Blood 237 mg/dL (70-110)
--- NOTE | 2023-06-12 19:58 | P.CONS ---
History of Present Illness - Reason for Consult Consult date: 06/12/23 - History of Present Illness Patient is a 67-year male with a past medical history significant for diabetes mellitus hypertension hyperlipidemia hypothyroidism did have a history of diabetic foot ulcer and cellulitis patient presenting to the hospital yesterday morning for evaluation of generalized weakness apparently patient has been feeling progressively weak over the last few days and EMS was called and to assist patient in getting up patient was noted to be tachycardic with the patient was brought into the hospital patient on presentation to the hospital was afebrile however he did have a low-grade fever of 100.2 followed by 100.3 at 4 AM patient did have resolution of his tachycardia not hypotensive or hypoxic patient did have a white count of 14.9 on admission subsequent normalized BUN and creatinine has been mildly elevated liver enzymes normal troponin was elevated urine is positive patient blood cultures came back positive with MRSA yesterday for the patient was started on vancomycin infectious he was consulted for further management of antibiotic therapy patient did have a chest x-ray hazy density left hemothorax more likely layering moderate effusion patient has been complaining of weakness denies having any headache or URI symptoms no chest pain some shortness of breath no significant cough or sputum production no nausea no vomiting or any diarrhea patient did have a nonhealing ulcer to both lower extremity however noticed to have more erythema and some drainage to the right f oot wound Past Medical History Past Medical History: Diabetes Mellitus, Hyperlipidemia, Hypertension, Thyroid Disorder History of Any Multi-Drug Resistant Organisms: None Reported Past Surgical History: Coronary Bypass/CABG, Heart Catheterization With Stent Additional Past Surgical History / Comment(s): left great and second toe removal. bilat carpal tunnel. neck fusion 5-6-7. triple bypass Past Anesthesia/Blood Transfusion Reactions: No Reported Reaction Additional Past Anesthesia/Blood Transfusion Reaction / Comm: no blood t ransfusion Date of Last Stent Placement:: 02/2002 Past Psychological History: No Psychological Hx Reported Smoking Status: Former smoker Past Alcohol Use History: None Reported Additional Past Alcohol Use History / Comment(s): quit smoking at 38 Past Drug Use History: None Reported - Past Family History Father History Unknown: Yes Mother History Unknown: Yes Medications and Allergies Home Medications Medication Instructions Recorded Confirmed Type Ferrous Sulfate [Iron (65 MG 325 mg PO DAILY 03/04/21 06/11/23 History Elemental)] Gabapentin [Neurontin] 300 mg PO TID 03/04/21 06/11/23 History Hydroxychloroquine Sulfate 200 mg PO BID 03/04/21 06/11/23 History [Plaquenil] Levothyroxine Sodium [Synthroid] 100 mcg PO DAILY 03/04/21 06/11/23 History Simvastatin [Zocor] 20 mg PO DAILY 03/04/21 06/11/23 History Famotidine [Pepcid] 20 mg PO BID #60 tablet 03/12/21 06/11/23 Rx Sennosides [Senokot] 8.6 mg PO BID PRN tab 03/12/21 06/11/23 Rx Losartan [Cozaar] 25 mg PO DAILY #30 tab 03/13/21 06/11/23 Rx Meclizine [Antivert] 12.5 mg PO TID PRN 30 Days #90 03/13/21 06/11/23 Rx tablet amLODIPine [Norvasc] 5 mg PO BID 30 Days #60 tab 03/13/21 06/11/23 Rx Balsalazide Disodium [Colazal] 2,250 mg PO BID 03/17/23 06/11/23 History Loratadine [Claritin] 10 mg PO DAILY 03/17/23 06/11/23 History Magnesium Oxide [Magox 400] 400 mg PO DAILY 03/17/23 06/11/23 History Testosterone Cypionate 200 mg IM Q28D 03/17/23 06/11/23 History [Depo-Testosterone] Acetaminophen [Tylenol Arthritis] 1,300 mg PO Q8H PRN 06/11/23 06/11/23 History Apixaban [Eliquis] 5 mg PO BID #60 tab 06/11/23 Rx Aspirin 81 mg PO DAILY 06/11/23 06/11/23 History Insulin Glargine [Lantus Vial] 10 unit SQ DAILY 06/11/23 06/11/23 History Insuln Asp Prt/Insulin Aspart 1 dose SQ HS 06/11/23 06/11/23 History [NovoLOG MIX 70-30 VIAL] Ondansetron Odt [Zofran Odt] 4 mg PO TID PRN 06/11/23 06/11/23 History Warfarin [Coumadin] 5 mg PO DAILY 06/11/23 06/11/23 History carvediloL [Coreg] 6.25 mg PO BID 06/11/23 06/11/23 History Allergies Allergy/AdvReac Type Severity Reaction Status Date / Time Penicillins Allergy Unknown Verified 06/11/23 09:48 Childhood Physical Exam Vitals: Vital Signs Temp Pulse Pulse Resp BP BP Pulse Ox 06/12/23 09:05 98.6 F 74 17 138/81 99 06/12/23 04:00 100.3 F H 91 16 160/86 94 L 06/12/23 02:00 88 18 06/12/23 00:00 100.2 F H 88 18 157/68 95 06/11/23 20:00 98.2 F 74 16 156/95 97 06/11/23 17:46 98.3 F 95 16 136/65 97 06/11/23 15:10 90 136/65 96 Intake and Output 06/11/23 06/12/23 06/12/23 22:59 06:59 14:59 Intake Total 250 Output Total 450 Balance -450 250 Intake: Intake, IV Titration 250 Amount Amiodarone 450 mg In 250 Dextrose 5% in Water 250 ml @ 0.5 MG/MIN 16.667 mls/hr IV .Q15H [facility] Rx#: [id number] Output: Urine 450 Other: Voiding Method External Catheter External Catheter External Catheter Weight 86.046 kg Results CBC & Chem 7: 06/12/23 11:20 06/12/23 06:15 Labs: Abnormal Lab Results - Last 24 Hours (Table) 06/11/23 06/11/23 06/11/23 Range/Units 07:24 17:14 17:50 RBC (4.30-5.90) m/uL Hgb (13.0-17.5) gm/dL Hct (39.0-53.0) % Lymphocytes # (1.0-4.8) k/uL PT (10.0-12.5) sec INR (<1.2) Sodium (137-145) mmol/L BUN (9-20) mg/dL Creatinine (0.66-1.25) mg/dL Glucose (74-99) mg/dL POC Glucose (mg/dL) 268 H (70-110) mg/dL Hemoglobin A1c (<=6.0) % AST (17-59) U/L C-Reactive Protein (<1.0) mg/dL Total Protein (6.3-8.2) g/dL Albumin (3.5-5.0) g/dL Procalcitonin 0.50 H (0.02-0.09) ng/mL Urine Protein 2+ H (Negative) Urine Glucose (UA) 1+ H (Negative) Urine Ketones Trace H (Negative) Urine Blood Small H (Negative) Ur Leukocyte Esterase Large H (Negative) Urine WBC >182 H (0-5) /hpf Urine Bacteria Few H (None) /hpf Urine Yeast (Budding) Few H (None) /hpf 06/11/23 06/12/23 06/12/23 Range/Units 20:07 06:10 06:15 RBC (4.30-5.90) m/uL Hgb (13.0-17.5) gm/dL Hct (39.0-53.0) % Lymphocytes # (1.0-4.8) k/uL PT (10.0-12.5) sec INR (<1.2) Sodium (137-145) mmol/L BUN (9-20) mg/dL Creatinine (0.66-1.25) mg/dL Glucose (74-99) mg/dL POC Glucose (mg/dL) 186 H 198 H (70-110) mg/dL Hemoglobin A1c 7.8 H (<=6.0) % AST (17-59) U/L C-Reactive Protein (<1.0) mg/dL Total Protein (6.3-8.2) g/dL Albumin (3.5-5.0) g/dL Procalcitonin (0.02-0.09) ng/mL Urine Protein (Negative) Urine Glucose (UA) (Negative) Urine Ketones (Negative) Urine Blood (Negative) Ur Leukocyte Esterase (Negative) Urine WBC (0-5) /hpf Urine Bacteria (None) /hpf Urine Yeast (Budding) (None) /hpf 06/12/23 06/12/23 06/12/23 Range/Units 06:15 06:15 06:15 RBC 3.08 L (4.30-5.90) m/uL Hgb 8.8 L D (13.0-17.5) gm/dL Hct 27.7 L (39.0-53.0) % Lymphocytes # 0.5 L (1.0-4.8) k/uL PT 12.7 H (10.0-12.5) sec INR 1.2 H (<1.2) Sodium 135 L (137-145) mmol/L BUN 37 H (9-20) mg/dL Creatinine 1.57 H (0.66-1.25) mg/dL Glucose 190 H (74-99) mg/dL POC Glucose (mg/dL) (70-110) mg/dL Hemoglobin A1c (<=6.0) % AST 73 H (17-59) U/L C-Reactive Protein 26.1 H (<1.0) mg/dL Total Protein 5.3 L (6.3-8.2) g/dL Albumin 2.6 L (3.5-5.0) g/dL Procalcitonin (0.02-0.09) ng/mL Urine Protein (Negative) Urine Glucose (UA) (Negative) Urine Ketones (Negative) Urine Blood (Negative) Ur Leukocyte Esterase (Negative) Urine WBC (0-5) /hpf Urine Bacteria (None) /hpf Urine Yeast (Budding) (None) /hpf 06/12/23 Range/Units 11:17 RBC (4.30-5.90) m/uL Hgb (13.0-17.5) gm/dL Hct (39.0-53.0) % Lymphocytes # (1.0-4.8) k/uL PT (10.0-12.5) sec INR (<1.2) Sodium (137-145) mmol/L BUN (9-20) mg/dL Creatinine (0.66-1.25) mg/dL Glucose (74-99) mg/dL POC Glucose (mg/dL) 270 H (70-110) mg/dL Hemoglobin A1c (<=6.0) % AST (17-59) U/L C-Reactive Protein (<1.0) mg/dL Total Protein (6.3-8.2) g/dL Albumin (3.5-5.0) g/dL Procalcitonin (0.02-0.09) ng/mL Urine Protein (Negative) Urine Glucose (UA) (Negative) Urine Ketones (Negative) Urine Blood (Negative) Ur Leukocyte Esterase (Negative) Urine WBC (0-5) /hpf Urine Bacteria (None) /hpf Urine Yeast (Budding) (None) /hpf Microbiology - Last 24 Hours (Table) 06/10/23 22:00 Blood Culture Gram Stain - Preliminary Blood Blood Culture - Preliminary Presumptive MRSA 06/10/23 22:15 Blood Culture Gram Stain - Preliminary Blood Blood Culture - Preliminary Presumptive MRSA Molecular ID Assessment and Plan Plan: 1patient with MRSA bacteremia source could be right diabetic foot wound infection with secondary cellulitis versus a urinary source as we did have a positive UA. 2we will obtain culture from the right foot wound both aerobic and anaerobic and check x-rays of the right foot. 3blood cultures will be repeated document clearance of bacteremia and check inflammatory markers. 4vancomycin pharmacy to dose target trough of 15 while watching kidney function and Vanco trough closely We will follow on clinical condition and cultures to further adjust medication if needed Thank you for this consultation we will follow the patient along with you Dictation was produced using [employer] dictation software. please excuse any grammatical, word or spelling errors. Time with Patient: Greater than 30
[2023-06-12 20:09] LABS: Glucose,Whole Blood 330 mg/dL (70-110)
[2023-06-12] MEDS: ACETAMINOPHEN TAB 325 MG TAB PO PRN (20:20)
[2023-06-13] MEDS: HEPARIN SODIUM 1,000 UN/ML (10ML VL) IV PRN (00:26)
[2023-06-13 06:17] LABS: Glucose,Whole Blood 264 mg/dL (70-110)
[2023-06-13 10:09] LABS: African American GFR (CKD) 52 (>60 ml/min/1.73 sqM); Non-African American GFR(CKD) 45 (>60 ml/min/1.73 sqM)
--- NOTE | 2023-06-13 11:36 | P.PN ---
Subjective Progress Note Date: 06/13/23 Principal diagnosis: Atrial fibrillation The patient is a 67-year-old gentleman with coronary artery disease status post CABG as well as cardiomyopathy with the most recent echo during this admission showed an EF between 30 to 35% as well as hypertension and dyslipidemia and atr ial fibrillation which was paroxysmal was on oral anticoagulation with Coumadin was admitted to the hospital with shortness of breath. He was in atrial fibrillation with rapid ventricular response. Troponin was mildly elevated. The echo revealed impaired LV function with EF between 30 to 35%. June 12, 2023 The patient was seen and evaluated this morning. He is feeling better. The shortness of breath has improved. No pain in the chest. No dizziness or lightheadedness and no feeling of heart racing or fluttering and no presyncope or syncope. He continues to be in atrial fibrillation with controlled heart rate. I am going to DC amiodarone IV and start the patient on amiodarone orally and also consider starting the patient on heparin right now for possible need of heart catheterization if the cardiomyopathy is noted. Please note that his hemoglobin is low and drop to about 8 from 10. We are checking for any BLOOD in the stool. Meanwhile start the patient on heparin IV and consider oral anticoagulation down the line. The examination revealed irregular rhythm with a systolic murmur and diminished breathing sounds bilaterally and no edema was noted June 13, 2023 The patient was seen and evaluated this morning. He is feeling better. The shortness of breath has improved. He continues to be in atrial fibrillation/flutter with controlled heart rate on the current medical regimen including the current dose of carvedilol as well as amiodarone. He continues to be on heparin IV at this point. INR is in process to be done. Kidney function has been stable. The INR is in process to be done. Gastrointestinal bleeding to be done as well and fecal occult blood was ordered but he did not have any bowel movements. The examination revealed irregular rhythm with a distant heart sounds and diminished breathing sounds bilaterally and mild bilateral lower extremities edema Assessment Atrial fibrillation with controlled heart rate History of paroxysmal atrial fibrillation Coronary artery disease and status post CABG Ischemic cardiomyopathy with an ejection fraction around 35% Anemia which has been slightly worse compared to before Supratherapeutic INR Multiple comorbid conditions including diabetes and hypertension dyslipidemia Plan Continue heparin IV for now Consider workup for the cardiomyopathy Rule out gastrointestinal bleeding The patient's need to go on oral anticoagulation chronically if there is no contraindication Maximize medical treatment for cardiomyopathy Decrease the dose of amiodarone Follow-up with the patient Objective - Vital Signs Vital signs: Vital Signs Temp 97.5 F L 06/13/23 08:45 Pulse 73 06/13/23 08:45 Resp 18 06/13/23 08:45 BP 142/83 06/13/23 08:45 Pulse Ox 99 06/13/23 08:45 FiO2 Intake & Output 06/12/23 06/13/23 06/13/23 18:59 06:59 18:59 Intake Total 311.494 180.653 118 Output Total 300 400 Balance 11.494 -219.347 118 Weight 86.046 kg Intake: Intake, IV Titration 311.494 180.653 Amount Amiodarone 450 mg In 250 Dextrose 5% in Water 250 ml @ 0.5 MG/MIN 16.667 mls/hr IV .Q15H [facility] Rx#: [id number] Heparin Sod,Pork in 0.45% 61.494 180.653 NaCl 25,000 unit In 0.45 % NaCl 1 250ml.bag @ 11. 62 UNITS/KG/HR 9.999 mls/ hr IV .Q24H [facility] Rx#: [id number] Oral 118 Output: Urine 300 400 Other: Voiding Method External Catheter External Catheter External Catheter - Labs CBC & Chem 7: 06/12/23 11:20 06/13/23 09:00 Labs: Abnormal Lab Results - Last 24 Hours (Table) 06/12/23 06/12/23 06/12/23 Range/Units 06:15 11:20 11:20 RBC 3.02 L (4.30-5.90) m/uL Hgb 8.9 L (13.0-17.5) gm/dL Hct 26.9 L (39.0-53.0) % Lymphocytes # 0.5 L (1.0-4.8) k/uL PT 13.1 H (10.0-12.5) sec INR 1.2 H (<1.2) APTT 52.0 H (22.0-30.0) sec Creatinine (0.66-1.25) mg/dL POC Glucose (mg/dL) (70-110) mg/dL C-Reactive Protein (<1.0) mg/dL Procalcitonin 0.38 H (0.02-0.09) ng/mL 06/12/23 06/12/23 06/12/23 Range/Units 16:19 16:23 20:07 RBC (4.30-5.90) m/uL Hgb (13.0-17.5) gm/dL Hct (39.0-53.0) % Lymphocytes # (1.0-4.8) k/uL PT (10.0-12.5) sec INR (<1.2) APTT 31.3 H (22.0-30.0) sec Creatinine (0.66-1.25) mg/dL POC Glucose (mg/dL) 237 H 330 H (70-110) mg/dL C-Reactive Protein (<1.0) mg/dL Procalcitonin (0.02-0.09) ng/mL 06/12/23 06/13/23 06/13/23 Range/Units 23:19 06:14 09:00 RBC (4.30-5.90) m/uL Hgb (13.0-17.5) gm/dL Hct (39.0-53.0) % Lymphocytes # (1.0-4.8) k/uL PT (10.0-12.5) sec INR (<1.2) APTT 39.4 H (22.0-30.0) sec Creatinine 1.56 H (0.66-1.25) mg/dL POC Glucose (mg/dL) 264 H (70-110) mg/dL C-Reactive Protein 19.0 H (<1.0) mg/dL Procalcitonin (0.02-0.09) ng/mL 06/13/23 Range/Units 09:00 RBC (4.30-5.90) m/uL Hgb (13.0-17.5) gm/dL Hct (39.0-53.0) % Lymphocytes # (1.0-4.8) k/uL PT (10.0-12.5) sec INR (<1.2) APTT 52.1 H (22.0-30.0) sec Creatinine (0.66-1.25) mg/dL POC Glucose (mg/dL) (70-110) mg/dL C-Reactive Protein (<1.0) mg/dL Procalcitonin (0.02-0.09) ng/mL Microbiology - Last 24 Hours (Table) 06/11/23 22:11 Blood Culture Gram Stain - Preliminary Blood Blood Culture - Preliminary 06/11/23 17:50 Urine Culture - Final Urine,Voided 06/10/23 22:00 Blood Culture Gram Stain - Preliminary Blood Blood Culture - Preliminary Presumptive MRSA 06/10/23 22:15 Blood Culture Gram Stain - Preliminary Blood Blood Culture - Preliminary Presumptive MRSA Molecular ID
[2023-06-13 11:39] LABS: Glucose,Whole Blood 290 mg/dL (70-110)
--- NOTE | 2023-06-13 12:56 | P.PN ---
Subjective Progress Note Date: 06/13/23 Patient is a 67-year-old male with a past medical history of coronary artery disease status post CABG, and stent placement, hypertension, diabetes type 2 insulin-dependent, hypothyroidism brought to the ER for generalized weakness. Patient stated that he has been feeling weak for the last few days. Denies any fever or chills at home. Denies any nausea or vomiting. Patient stated that he was having reduced energy level and having a hard time ambulating. Denies any fever but stated that he was feeling cold at home. Denies any chest pain. no complaint of shortness of breath. There is no current complaint of orthopnea or PND. Because of the symptoms, patient brought to the ER Initial lab work done in the ER showed WBC 14.9, hemoglobin 10.8, platelet count 393, INR greater than 10 PT greater than 130 sodium 139, potassium 4.1, BUN 46, creatinine 2.07 troponin 0.423 EKG done in the ER showed heart rate of 149, no ST segment elevation or depression seen, no T-wave inversions seen. Chest x-ray done in the ER hazy density in the left hemithorax and most likely indicating moderate pleural effusion. CT head done showed no acute intracranial process Patient admitted to internal medicine service 06/11. Patient seen and examined. Blood cultures are positive for MRSA, currently on vancomycin and ID has been consulted. complaining of lethargy and weakness. 06/12. Patient seen and examined. Still spiking low-grade fevers. Repeat blood cultures are also positive for gram-positive cocci. 2D echo done showed moderate to severe LV dysfunction and EF of 30 to 35%, mild pulmonary hypert ension REVIEW OF SYSTEMS: CONSTITUTIONAL: As mentioned above. CARDIOVASCULAR: No chest pain, no palpitations, no syncope. PULMONARY: No shortness of breath, no cough, GASTROINTESTINAL: No diarrhea, no nausea, no vomiting, no abdominal pain. NEUROLOGICAL: No headaches, no weakness, PHYSICAL EXAMINATION: GENERAL: The patient is alert and oriented x3, not in any acute distress. Well developed, well nourished. HEENT: Pupils are round and equally reacting to light. EOMI. No scleral icterus. No conjunctival pallor. Normocephalic, atraumatic. No pharyngeal erythema. No thyromegaly. CARDIOVASCULAR: S1 and S2 present. No murmurs, rubs, or gallops. PULMONARY: Chest is clear to auscultation, no wheezing or crackles. ABDOMEN: Soft, nontender, nondistended, normoactive bowel sounds. No palpable organomegaly. MUSCULOSKELETAL: No joint swelling or deformity. EXTREMITIES: No cyanosis, clubbing, or pedal edema. NEUROLOGICAL: Gross neurological examination did not reveal any focal deficits. SKIN: Right foot diabetic ulcer Assessment and plan MRSA bacteremia A-fib with RVR Right foot diabetic ulcer Supratherapeutic INR Generalized weakness Coronary artery disease status post CABG Hypertension Dyslipidemia Hypothyroidism chronic kidney disease stage III Uncontrolled diabetes mellitus type 2 Hypercoagulopathy on presentation Monitor vital signs Monitor CBC Monitor CMP Continue telemetry monitoring blood culture positive for MRSA, repeat blood cultures ordered pharmacy to dose heparin Continue amiodarone Continue aspirin, Lipitor, Coreg continue pharmacy dose vancomycin Monitor blood sugar levels, continue sliding scale insulin cardiology following ID following Labs and medication were reviewed.. Continue same treatment. Continue with symptomatic treatment. Resume home medication. Monitor labs and vitals. DVT and GI prophylaxis. Further recommendations as per clinical course of the patient Dictation was produced using [employer] dictation software. please excuse any grammatical, word or spelling errors. Objective - Vital Signs Vital signs: Vital Signs Temp 97.8 F 06/13/23 12:00 Pulse 72 06/13/23 12:00 Resp 17 06/13/23 12:00 BP 156/81 06/13/23 12:00 Pulse Ox 97 06/13/23 12:00 FiO2 Intake & Output 06/12/23 06/13/23 06/13/23 18:59 06:59 18:59 Intake Total 311.494 180.653 118 Output Total 300 400 Balance 11.494 -219.347 118 Weight 86.046 kg Intake: Intake, IV Titration 311.494 180.653 Amount Amiodarone 450 mg In 250 Dextrose 5% in Water 250 ml @ 0.5 MG/MIN 16.667 mls/hr IV .Q15H [facility] Rx#: [id number] Heparin Sod,Pork in 0.45% 61.494 180.653 NaCl 25,000 unit In 0.45 % NaCl 1 250ml.bag @ 11. 62 UNITS/KG/HR 9.999 mls/ hr IV .Q24H [facility] Rx#: [id number] Oral 118 Output: Urine 300 400 Other: Voiding Method External Catheter External Catheter External Catheter - Labs CBC & Chem 7: 06/12/23 11:20 06/13/23 09:00 Labs: Abnormal Lab Results - Last 24 Hours (Table) 06/12/23 06/12/23 06/12/23 Range/Units 16:19 16:23 20:07 APTT 31.3 H (22.0-30.0) sec Creatinine (0.66-1.25) mg/dL POC Glucose (mg/dL) 237 H 330 H (70-110) mg/dL C-Reactive Protein (<1.0) mg/dL 06/12/23 06/13/23 06/13/23 Range/Units 23:19 06:14 09:00 APTT 39.4 H (22.0-30.0) sec Creatinine 1.56 H (0.66-1.25) mg/dL POC Glucose (mg/dL) 264 H (70-110) mg/dL C-Reactive Protein 19.0 H (<1.0) mg/dL 06/13/23 06/13/23 Range/Units 09:00 11:38 APTT 52.1 H (22.0-30.0) sec Creatinine (0.66-1.25) mg/dL POC Glucose (mg/dL) 290 H (70-110) mg/dL C-Reactive Protein (<1.0) mg/dL Microbiology - Last 24 Hours (Table) 06/10/23 22:00 Blood Culture Gram Stain - Final Blood Blood Culture - Final Methicillin resist S. aureus 06/10/23 22:15 Blood Culture Gram Stain - Final Blood Blood Culture - Final Methicillin resist S. aureus Molecular ID 06/11/23 22:11 Blood Culture Gram Stain - Preliminary Blood Blood Culture - Preliminary 06/11/23 17:50 Urine Culture - Final Urine,Voided
[2023-06-13 13:30] LABS: INR 1.1 (<1.2)
[2023-06-13 13:37] LABS: Basophils # (A) 0.1 k/uL (0-0.2); Basophils % (A) 1 %; Eosinophils # (A) 0.3 k/uL (0-0.7); Eosinophils % (A) 3 %; HCT 26.6 % (39.0-53.0); HGB 8.2 gm/dL (13.0-17.5); Hypochromasia Slight; Lymphocytes # (A) 0.7 k/uL (1.0-4.8); Lymphocytes % (A) 7 %; MCH 27.7 pg (25.0-35.0); MCHC 30.7 g/dL (31.0-37.0); MCV 90.2 fL (80.0-100.0); Mean Platelet Volume 9.3; Monocytes # (A) 0.8 k/uL (0-1.0); Monocytes % (A) 9 %; Neutrophils # (A) 7.1 k/uL (1.3-7.7); Neutrophils % (A) 78 %; Platelet Count 327 k/uL (150-450); RBC 2.95 m/uL (4.30-5.90); RDW 12.4 % (11.5-15.5); WBC 9.1 k/uL (3.8-10.6)
[2023-06-13 16:46] LABS: Glucose,Whole Blood 298 mg/dL (70-110)
[2023-06-13 20:12] LABS: Glucose,Whole Blood 366 mg/dL (70-110)
[2023-06-13] MEDS: AMIODARONE 200 MG TAB PO SCH (20:46)
[2023-06-14 06:18] LABS: Glucose,Whole Blood 268 mg/dL (70-110)
[2023-06-14 09:20] LABS: HCT 24.3 % (39.0-53.0); HGB 7.8 gm/dL (13.0-17.5); Hypochromasia Slight; MCV 90.7 fL (80.0-100.0); Mean Platelet Volume 8.9; Platelet Count 321 k/uL (150-450); RBC 2.68 m/uL (4.30-5.90); RDW 12.7 % (11.5-15.5); WBC 9.2 k/uL (3.8-10.6)
[2023-06-14 09:44] LABS: ALT 27 U/L (4-49); AST 42 U/L (17-59); African American GFR (CKD) 58 (>60 ml/min/1.73 sqM); Albumin 2.1 g/dL (3.5-5.0); Alkaline Phosphatase 64 U/L (38-126); Anion Gap 4 mmol/L; Blood Urea Nitrogen 25 mg/dL (9-20); Calcium 7.9 mg/dL (8.4-10.2); Carbon Dioxide 20 mmol/L (22-30); Chloride 112 mmol/L (98-107); Glucose 276 mg/dL (74-99); Non-African American GFR(CKD) 50 (>60 ml/min/1.73 sqM); Potassium 3.8 mmol/L (3.5-5.1); Sodium 136 mmol/L (137-145); Total Bilirubin 0.3 mg/dL (0.2-1.3); Total Protein 4.7 g/dL (6.3-8.2)
[2023-06-14 11:35] LABS: Glucose,Whole Blood 417 mg/dL (70-110)
--- NOTE | 2023-06-14 13:56 | P.PN ---
Subjective Progress Note Date: 06/14/23 Atrial fibrillation The patient is a 67-year-old gentleman with coronary artery disease status post CABG as well as cardiomyopathy with the most recent echo during this admission showed an EF between 30 to 35% as well as hypertension and dyslipidemia and atrial fibrillation which was paroxysmal was on oral anticoagulation with Coumadin was admitted to the hospital with shortness of breath. He was in a trial fibrillation with rapid ventricular response. Troponin was mildly elevated. The echo revealed impaired LV function with EF between 30 to 35%. June 12, 2023 The patient was seen and evaluated this morning. He is feeling better. The shortness of breath has improved. No pain in the chest. No dizziness or lightheadedness and no feeling of heart racing or fluttering and no presyncope or syncope. He continues to be in atrial fibrillation with controlled heart rate. I am going to DC amiodarone IV and start the patient on amiodarone orally and also consider starting the patient on heparin right now for possible need of heart catheterization if the cardiomyopathy is noted. Please note that his hemoglobin is low and drop to about 8 from 10. We are checking for any BLOOD in the stool. Meanwhile start the patient on heparin IV and consider oral anticoagulation down the line. The examination revealed irregular rhythm with a systolic murmur and diminished breathing sounds bilaterally and no edema was noted June 13, 2023 The patient was seen and evaluated this morning. He is feeling better. The shortness of breath has improved. He continues to be in atrial fibrillation/fl utter with controlled heart rate on the current medical regimen including the current dose of carvedilol as well as amiodarone. He continues to be on heparin IV at this point. INR is in process to be done. Kidney function has been stable. The INR is in process to be done. Gastrointestinal bleeding to be done as well and fecal occult blood was ordered but he did not have any bowel movements. The examination revealed irregular rhythm with a distant heart sounds and diminished breathing sounds bilaterally and mild bilateral lower extremities edema 06/13 Patient denies having any shortness of breath, no chest pain. He denies having any palpitations or racing heartbeat. He is continued on a heparin drip. Repeat blood work reveals hemoglobin of 7.8. Sodium 136, potassium 3.8, chloride 112, CO2 20, BUN 25 creatinine 1.4, blood sugar 276. Patient states that he has had anemia in the past. He denies any known blood in his stool or urine. Yesterday, amiodarone decreased to 200 mg twice daily. Physical Examination Gen: This is a 67-year-old male in no acute distress HEENT: Head is atraumatic, normocephalic. Pupils equal, round. Sclerae is anicteric. NECK: Supple. No JVD. No lymphadenopathy. No thyromegaly. LUNGS: Diminished breath sounds bilaterally. No intercostal retractions. HEART: Irregular rate and rhythm, distant heart sounds. No murmur. ABDOMEN: Soft. Bowel sounds are present. No masses. No tenderness. EXTREMITIES: Mild lower extremity edema. No calf tenderness. NEUROLOGICAL: Patient is awake, alert and oriented x3. Cranial nerves 2 through 12 are grossly intact. Assessment Atrial fibrillation with controlled heart rate History of paroxysmal atrial fibrillation Coronary artery disease and status post CABG Ischemic cardiomyopathy with an ejection fraction around 35% Anemia which has been slightly worse compared to before Supratherapeutic INR Multiple comorbid conditions including diabetes and hypertension dyslipidemia Plan Continue heparin IV for now Consider workup for the cardiomyopathy Rule out gastrointestinal bleeding. Obtain iron studies, and stool for occult blood The patient's need to go on oral anticoagulation chronically if there is no contraindication Maximize medical treatment for cardiomyopathy Follow-up with the patient Nurse practitioner note has been reviewed, I agree with documented findings and plan of care. Patient was seen and examined. Objective - Vital Signs Vital signs: Vital Signs Temp 97.9 F 06/14/23 08:26 Pulse 72 06/14/23 10:33 Resp 18 06/14/23 10:33 BP 142/83 06/14/23 08:26 Pulse Ox 95 06/14/23 08:26 FiO2 Intake & Output 06/13/23 06/14/23 06/14/23 18:59 06:59 18:59 Intake Total 354 250 120 Output Total 800 550 Balance -446 -300 120 Intake: Intake, IV Titration 250 Amount Heparin Sod,Pork in 0.45% 250 NaCl 25,000 unit In 0.45 % NaCl 1 250ml.bag @ 11. 62 UNITS/KG/HR 9.999 mls/ hr IV .Q24H [facility] Rx#: [id number] Oral 354 120 Output: Urine 800 550 Other: Voiding Method External Catheter External Catheter External Catheter # Voids 0 - Labs CBC & Chem 7: 06/14/23 08:51 06/14/23 08:51 Labs: Abnormal Lab Results - Last 24 Hours (Table) 06/13/23 06/13/23 06/13/23 Range/Units 11:38 12:48 16:44 RBC 2.95 L (4.30-5.90) m/uL Hgb 8.2 L (13.0-17.5) gm/dL Hct 26.6 L (39.0-53.0) % MCHC 30.7 L (31.0-37.0) g/dL Lymphocytes # 0.7 L (1.0-4.8) k/uL APTT (22.0-30.0) sec Sodium (137-145) mmol/L Chloride (98-107) mmol/L Carbon Dioxide (22-30) mmol/L BUN (9-20) mg/dL Creatinine (0.66-1.25) mg/dL Glucose (74-99) mg/dL POC Glucose (mg/dL) 290 H 298 H (70-110) mg/dL Calcium (8.4-10.2) mg/dL Total Protein (6.3-8.2) g/dL Albumin (3.5-5.0) g/dL 06/13/23 06/14/23 06/14/23 Range/Units 20:10 06:16 08:51 RBC (4.30-5.90) m/uL Hgb (13.0-17.5) gm/dL Hct (39.0-53.0) % MCHC (31.0-37.0) g/dL Lymphocytes # (1.0-4.8) k/uL APTT 48.5 H (22.0-30.0) sec Sodium (137-145) mmol/L Chloride (98-107) mmol/L Carbon Dioxide (22-30) mmol/L BUN (9-20) mg/dL Creatinine (0.66-1.25) mg/dL Glucose (74-99) mg/dL POC Glucose (mg/dL) 366 H 268 H (70-110) mg/dL Calcium (8.4-10.2) mg/dL Total Protein (6.3-8.2) g/dL Albumin (3.5-5.0) g/dL 06/14/23 06/14/23 Range/Units 08:51 08:51 RBC 2.68 L (4.30-5.90) m/uL Hgb 7.8 L (13.0-17.5) gm/dL Hct 24.3 L (39.0-53.0) % MCHC (31.0-37.0) g/dL Lymphocytes # (1.0-4.8) k/uL APTT (22.0-30.0) sec Sodium 136 L (137-145) mmol/L Chloride 112 H (98-107) mmol/L Carbon Dioxide 20 L (22-30) mmol/L BUN 25 H (9-20) mg/dL Creatinine 1.44 H (0.66-1.25) mg/dL Glucose 276 H (74-99) mg/dL POC Glucose (mg/dL) (70-110) mg/dL Calcium 7.9 L (8.4-10.2) mg/dL Total Protein 4.7 L (6.3-8.2) g/dL Albumin 2.1 L (3.5-5.0) g/dL Microbiology - Last 24 Hours (Table) 06/11/23 22:11 Blood Culture Gram Stain - Preliminary Blood Blood Culture - Preliminary Presumptive MRSA 06/11/23 17:50 Urine Culture - Final Urine,Voided Christina sp,not albicans/galbr 06/12/23 12:00 Gram Stain - Preliminary Foot - Right Wound Culture - Preliminary Presumptive Staph aureus 06/12/23 06:15 Blood Culture - Preliminary Blood 06/10/23 22:00 Blood Culture Gram Stain - Final Blood Blood Culture - Final Methicillin resist S. aureus 06/10/23 22:15 Blood Culture Gram Stain - Final Blood Blood Culture - Final Methicillin resist S. aureus Molecular ID
--- NOTE | 2023-06-14 15:05 | XR ---
EXAMINATION TYPE: XR knee complete RT DATE OF EXAM: 06/14/2023 CLINICAL HISTORY: pain TECHNIQUE: Three views of the right knee are obtained. Patellar sunrise views also submitted. COMPARISON: None. FINDINGS: There is no acute fracture/dislocation. The tri-compartment joint spaces appear moderatel y narrowed. Vascular calcifications are identified. IMPRESSION: There is no acute fracture or dislocation.ICD 10 NO FRACTURE, INITIAL EVALUATION
[2023-06-14 16:03] LABS: % Iron Saturation 13.08 (15.00-50.00)
[2023-06-14 16:44] LABS: Glucose,Whole Blood 308 mg/dL (70-110)
[2023-06-14 20:18] LABS: Glucose,Whole Blood 338 mg/dL (70-110)
[2023-06-14] MEDS: HYDROcodone/APAP 5-325MG 1 EACH TAB PO PRN (20:27)
[2023-06-14 20:35] LABS: Erythrocyte Sedimentation Rate 39 mm/Hr (0-20)
--- NOTE | 2023-06-14 20:42 | P.PN ---
Subjective Progress Note Date: 06/14/23 Patient is a 67-year-old male with a past medical history of coronary artery disease status post CABG, and stent placement, hypertension, diabetes type 2 insulin-dependent, hypothyroidism brought to the ER for generalized weakness. Patient stated that he has been feeling weak for the last few days. Denies any fever or chills at home. Denies any nausea or vomiting. Patient stated that he was having reduced energy level and having a hard time ambulating. Denies any fever but stated that he was feeling cold at home. Denies any chest pain. no complaint of shortness of breath. There is no current complaint of orthopnea or PND. Because of the symptoms, patient brought to the ER Initial lab work done in the ER showed WBC 14.9, hemoglobin 10.8, platelet count 393, INR greater than 10 PT greater than 130 sodium 139, potassium 4.1, BUN 46, creatinine 2.07 troponin 0.423 EKG done in the ER showed heart rate of 149, no ST segment elevation or depression seen, no T-wave inversions seen. Chest x-ray done in the ER hazy density in the left hemithorax and most likely indicating moderate pleural effusion. CT head done showed no acute intracranial process Patient admitted to internal medicine service 06/11. Patient seen and examined. Blood cultures are positive for MRSA, currently on vancomycin and ID has been consulted. complaining of lethargy and weakness 06/14/2023 This is evaluated today in the medical floor in follow-up. Patient continues on IV heparin drip per cardiology recommendations. Was maintained on warfarin outpatient for history of atrial fibrillation. Echocardiogram reveals an EF of 30-35% with mild pulmonary hypertension, His hemoglobin creased to 7.8 there are no signs of active bleeding at this time. Patient's main complaint is right knee pain and has been having difficulty ambulating. He remains on IV vancomycin for the MRSA bacteremia and is also noted to have a right foot diabetic ulceration. Review of Systems Constitutional: Denied any fatigue denied any fever. Cardio vascular: denied any chest pain, palpitations Gastrointestinal: denied any nausea, vomiting, diarrhea Pulmonary: Denied any shortness of breath cough Neurologic denied any new focal deficits All inpatient medications were reviewed and appropriate changes in these medications as dictated in the interval history and assessment and plan. PHYSICAL EXAMINATION: GENERAL: The patient is alert and oriented x3, not in any acute distress. Well developed, well nourished. HEENT: Pupils are round and equally reacting to light. EOMI. No scleral icterus. No conjunctival pallor. Normocephalic, atraumatic. No pharyngeal erythema. No thyromegaly. CARDIOVASCULAR: S1 and S2 present. No murmurs, rubs, or gallops. PULMONARY: Chest is clear to auscultation, no wheezing or crackles. ABDOMEN: Soft, nontender, nondistended, normoactive bowel sounds. No palpable organomegaly. MUSCULOSKELETAL: No joint swelling or deformity. EXTREMITIES: No cyanosis, clubbing, or pedal edema. NEUROLOGICAL: Gross neurological examination did not reveal any focal deficits. SKIN: No rashes. Assessment and plan MRSA bacteremia due to the diabetic foot ulcer with cultures also growing MRSA. A-fib with RVR Supratherapeutic INR, resolved Generalized weakness Coronary artery disease status post CABG Hypertension Dyslipidemia Hypothyroidism Chronic kidney disease stage III Uncontrolled diabetes mellitus type 2 Hypercoagulopathy on presentation GI prophylaxis DVT prophylaxis IV heparin Full Code Plan blood culture positive for MRSA, repeat blood cultures ordered Continue on IV heparin, on medical therapy for the cardiomyopathy. Further recommendations for oral anticoagulation for the a.fib. Continue amiodarone Continue aspirin, Lipitor, Coreg continue pharmacy dose vancomycin Continue accuchecks ACHS and sliding scale insulin, HS levemir added for improved glycemic control cardiology following ID consulted Bone scan has been ordered of the right foot. In addition we will x-ray the [facility] knee patient is being evaluated by physical therapy and currently recommending subacute rehab on discharge of the patient would like to return home if possible. Further workup for the anemia in place patient has iron studies currently pending at this time. The impression and plan of care has been dictated by Zoe Pradhan, Nurse Practitioner as directed. Dr. Elaina MD I have performed a history and physical examination and medical decision making of this patient, discussed the same with the dictator, and agree with the dictators assessment and plan as written, documented as a scribe. Based on total visit time, I have performed more than 50% of this visit. Objective - Vital Signs Vital signs: Vital Signs Temp 97.9 F 06/14/23 08:26 Pulse 70 06/14/23 12:09 Resp 18 06/14/23 12:09 BP 160/94 06/14/23 12:09 Pulse Ox 96 06/14/23 12:09 FiO2 Intake & Output 06/13/23 06/14/23 06/14/23 18:59 06:59 18:59 Intake Total 354 250 120 Output Total 800 550 200 Balance -446 -300 -80 Intake: Intake, IV Titration 250 Amount Heparin Sod,Pork in 0.45% 250 NaCl 25,000 unit In 0.45 % NaCl 1 250ml.bag @ 11. 62 UNITS/KG/HR 9.999 mls/ hr IV .Q24H [facility] Rx#: [id number] Oral 354 120 Output: Urine 800 550 200 Other: Voiding Method External Catheter External Catheter External Catheter # Voids 0 - Labs CBC & Chem 7: 06/14/23 08:51 06/14/23 08:51 Labs: Abnormal Lab Results - Last 24 Hours (Table) 06/13/23 06/13/23 06/13/23 Range/Units 12:48 16:44 20:10 RBC 2.95 L (4.30-5.90) m/uL Hgb 8.2 L (13.0-17.5) gm/dL Hct 26.6 L (39.0-53.0) % MCHC 30.7 L (31.0-37.0) g/dL Lymphocytes # 0.7 L (1.0-4.8) k/uL APTT (22.0-30.0) sec Sodium (137-145) mmol/L Chloride (98-107) mmol/L Carbon Dioxide (22-30) mmol/L BUN (9-20) mg/dL Creatinine (0.66-1.25) mg/dL Glucose (74-99) mg/dL POC Glucose (mg/dL) 298 H 366 H (70-110) mg/dL Calcium (8.4-10.2) mg/dL Total Protein (6.3-8.2) g/dL Albumin (3.5-5.0) g/dL 06/14/23 06/14/23 06/14/23 Range/Units 06:16 08:51 08:51 RBC (4.30-5.90) m/uL Hgb (13.0-17.5) gm/dL Hct (39.0-53.0) % MCHC (31.0-37.0) g/dL Lymphocytes # (1.0-4.8) k/uL APTT 48.5 H (22.0-30.0) sec Sodium 136 L (137-145) mmol/L Chloride 112 H (98-107) mmol/L Carbon Dioxide 20 L (22-30) mmol/L BUN 25 H (9-20) mg/dL Creatinine 1.44 H (0.66-1.25) mg/dL Glucose 276 H (74-99) mg/dL POC Glucose (mg/dL) 268 H (70-110) mg/dL Calcium 7.9 L (8.4-10.2) mg/dL Total Protein 4.7 L (6.3-8.2) g/dL Albumin 2.1 L (3.5-5.0) g/dL 06/14/23 06/14/23 Range/Units 08:51 11:33 RBC 2.68 L (4.30-5.90) m/uL Hgb 7.8 L (13.0-17.5) gm/dL Hct 24.3 L (39.0-53.0) % MCHC (31.0-37.0) g/dL Lymphocytes # (1.0-4.8) k/uL APTT (22.0-30.0) sec Sodium (137-145) mmol/L Chloride (98-107) mmol/L Carbon Dioxide (22-30) mmol/L BUN (9-20) mg/dL Creatinine (0.66-1.25) mg/dL Glucose (74-99) mg/dL POC Glucose (mg/dL) 417 H (70-110) mg/dL Calcium (8.4-10.2) mg/dL Total Protein (6.3-8.2) g/dL Albumin (3.5-5.0) g/dL Microbiology - Last 24 Hours (Table) 06/12/23 06:15 Blood Culture - Preliminary Blood 06/11/23 22:11 Blood Culture Gram Stain - Preliminary Blood Blood Culture - Preliminary Presumptive MRSA 06/11/23 17:50 Urine Culture - Final Urine,Voided Christina sp,not albicans/galbr 06/12/23 12:00 Gram Stain - Preliminary Foot - Right Wound Culture - Preliminary Presumptive Staph aureus 06/10/23 22:00 Blood Culture Gram Stain - Final Blood Blood Culture - Final Methicillin resist S. aureus 06/10/23 22:15 Blood Culture Gram Stain - Final Blood Blood Culture - Final Methicillin resist S. aureus Molecular ID Assessment and Plan Time with Patient: Less than 30
[2023-06-14] MEDS: INSULIN DETEMIR (LEVEMIR) 100 UNIT/ML SYR SQ SCH (22:32)
[2023-06-15 06:12] LABS: Glucose,Whole Blood 232 mg/dL (70-110)
[2023-06-15] MEDS: VANCOMYCIN TROUGH DUE 1 EACH MISC MISCELLANE ONE (10:05)
[2023-06-15 10:57] LABS: African American GFR (CKD) 55 (>60 ml/min/1.73 sqM); Anion Gap 5 mmol/L; Blood Urea Nitrogen 22 mg/dL (9-20); Calcium 8.4 mg/dL (8.4-10.2); Carbon Dioxide 21 mmol/L (22-30); Chloride 111 mmol/L (98-107); Glucose 216 mg/dL (74-99); Non-African American GFR(CKD) 48 (>60 ml/min/1.73 sqM); Potassium 4.1 mmol/L (3.5-5.1); Sodium 137 mmol/L (137-145)
[2023-06-15 11:19] LABS: C Reactive Protein 17.6 mg/dL (<1.0)
[2023-06-15 11:47] LABS: Glucose,Whole Blood 246 mg/dL (70-110)
--- NOTE | 2023-06-15 14:02 | NM ---
EXAMINATION TYPE: NM bone 3 phase DATE OF EXAM: 06/15/2023 COMPARISON: NONE CLINICAL INDICATION: Male, 67 years old with history of diabetic foot ulcer, bacteremia, osteo; Triple phase bone scintigraphy was performed following the injection of 23.9 mCi Tc 99m MDP. Immedia te images and 5.25 hours post injection images acquired. FINDINGS: There is increased radiotracer accumulation on all 3 phases of the study at the left amputation stump . Underlying osteomyelitis is difficult to exclude. Degenerative uptake about the right midfoot. IMPRESSION: There is increased radiotracer accumulation on all 3 phases of the study at the left amputation stump . Underlying osteomyelitis is difficult to exclude.
--- NOTE | 2023-06-15 14:52 | P.PN ---
Subjective Progress Note Date: 06/15/23 Atrial fibrillation The patient is a 67-year-old gentleman with coronary artery disease status post CABG as well as cardiomyopathy with the most recent echo during this admission showed an EF between 30 to 35% as well as hypertension and dyslipidemia and atrial fibrillation which was paroxysmal was on oral anticoagulation with Coumadin was admitted to the hospital with shortness of breath. He was in a trial fibrillation with rapid ventricular response. Troponin was mildly elevated. The echo revealed impaired LV function with EF between 30 to 35%. June 12, 2023 The patient was seen and evaluated this morning. He is feeling better. The shortness of breath has improved. No pain in the chest. No dizziness or lightheadedness and no feeling of heart racing or fluttering and no presyncope or syncope. He continues to be in atrial fibrillation with controlled heart rate. I am going to DC amiodarone IV and start the patient on amiodarone orally and also consider starting the patient on heparin right now for possible need of heart catheterization if the cardiomyopathy is noted. Please note that his hemoglobin is low and drop to about 8 from 10. We are checking for any BLOOD in the stool. Meanwhile start the patient on heparin IV and consider oral anticoagulation down the line. The examination revealed irregular rhythm with a systolic murmur and diminished breathing sounds bilaterally and no edema was noted June 13, 2023 The patient was seen and evaluated this morning. He is feeling better. The shortness of breath has improved. He continues to be in atrial fibrillation/fl utter with controlled heart rate on the current medical regimen including the current dose of carvedilol as well as amiodarone. He continues to be on heparin IV at this point. INR is in process to be done. Kidney function has been stable. The INR is in process to be done. Gastrointestinal bleeding to be done as well and fecal occult blood was ordered but he did not have any bowel movements. The examination revealed irregular rhythm with a distant heart sounds and diminished breathing sounds bilaterally and mild bilateral lower extremities edema 06/13 Patient denies having any shortness of breath, no chest pain. He denies having any palpitations or racing heartbeat. He is continued on a heparin drip. Repeat blood work reveals hemoglobin of 7.8. Sodium 136, potassium 3.8, chloride 112, CO2 20, BUN 25 creatinine 1.4, blood sugar 276. Patient states that he has had anemia in the past. He denies any known blood in his stool or urine. Yesterday, amiodarone decreased to 200 mg twice daily. 06/14 Blood pressure 158/84, heart rate 72, pulse ox 91% on room air. Repeat blood work reveals sodium 137, potassium 4.1, chloride 111, CO2 21, BUN 22 creatinine 1.5. C-reactive protein 17.6. Patient remains in atrial fibrillation and on heparin gtt. Bone scan done today for MRSA bacteremia and diabetic foot ulcer followed by infectious disease. Patient states he has not had a BM since arrival. We will wait for input from ID re need for PICC before switching to oral anticoagulant. Physical Examination Gen: This is a 67-year-old male in no acute distress HEENT: Head is atraumatic, normocephalic. Pupils equal, round. Sclerae is anicteric. NECK: Supple. No JVD. No lymphadenopathy. No thyromegaly. LUNGS: Diminished breath sounds bilaterally. No intercostal retractions. HEART: Irregular rate and rhythm, distant heart sounds. No murmur. ABDOMEN: Soft. Bowel sounds are present. No masses. No tenderness. EXTREMITIES: Mild lower extremity edema. No calf tenderness. NEUROLOGICAL: Patient is awake, alert and oriented x3. Cranial nerves 2 through 12 are grossly intact. Assessment Atrial fibrillation with controlled heart rate History of paroxysmal atrial fibrillation Coronary artery disease and status post CABG Ischemic cardiomyopathy with an ejection fraction around 35% Anemia which has been slightly worse compared to before Supratherapeutic INR Multiple comorbid conditions including diabetes and hypertension dyslipidemia MRSA bacteremia secondary to diabetic foot ulcer Plan Continue heparin IV for now The patient's need to go on oral anticoagulation chronically if there is no contraindication Maximize medical treatment for cardiomyopathy Follow-up with the patient Nurse practitioner note has been reviewed, I agree with documented findings and plan of care. Patient was seen and examined. Objective - Vital Signs Vital signs: Vital Signs Temp 97.8 F 06/15/23 09:21 Pulse 72 06/15/23 11:57 Resp 16 06/15/23 11:57 BP 158/84 06/15/23 11:57 Pulse Ox 91 L 06/15/23 11:57 FiO2 Intake & Output 06/14/23 06/15/23 06/15/23 18:59 06:59 18:59 Intake Total 340 250 Output Total 200 500 Balance 140 -250 Weight 86.046 kg Intake: Intake, IV Titration 250 Amount Heparin Sod,Pork in 0.45% 250 NaCl 25,000 unit In 0.45 % NaCl 1 250ml.bag @ 11. 62 UNITS/KG/HR 9.999 mls/ hr IV .Q24H [facility] Rx#: [id number] Oral 340 Output: Urine 200 500 Other: Voiding Method External Catheter External Catheter External Catheter # Voids 0 - Labs CBC & Chem 7: 06/14/23 08:51 06/15/23 09:02 Labs: Abnormal Lab Results - Last 24 Hours (Table) 06/13/23 06/14/23 06/14/23 Range/Units 12:48 08:51 16:40 ESR 39 H (0-20) mm/Hr APTT (22.0-30.0) sec Chloride (98-107) mmol/L Carbon Dioxide (22-30) mmol/L BUN (9-20) mg/dL Creatinine (0.66-1.25) mg/dL Glucose (74-99) mg/dL POC Glucose (mg/dL) 308 H (70-110) mg/dL Iron 17 L (65-175) UG/DL TIBC 130 L (228-460) UG/DL % Saturation 13.08 L (15.00-50.00) Transferrin 92.8 L (204.0-354.0) mg/dL Ferritin 555.0 H (22.0-322.0) ng/mL C-Reactive Protein (<1.0) mg/dL 06/14/23 06/15/23 06/15/23 Range/Units 20:15 06:08 09:02 ESR (0-20) mm/Hr APTT (22.0-30.0) sec Chloride 111 H (98-107) mmol/L Carbon Dioxide 21 L (22-30) mmol/L BUN 22 H (9-20) mg/dL Creatinine 1.50 H (0.66-1.25) mg/dL Glucose 216 H (74-99) mg/dL POC Glucose (mg/dL) 338 H 232 H (70-110) mg/dL Iron (65-175) UG/DL TIBC (228-460) UG/DL % Saturation (15.00-50.00) Transferrin (204.0-354.0) mg/dL Ferritin (22.0-322.0) ng/mL C-Reactive Protein 17.6 H (<1.0) mg/dL 06/15/23 06/15/23 Range/Units 09:02 11:46 ESR (0-20) mm/Hr APTT 60.7 H (22.0-30.0) sec Chloride (98-107) mmol/L Carbon Dioxide (22-30) mmol/L BUN (9-20) mg/dL Creatinine (0.66-1.25) mg/dL Glucose (74-99) mg/dL POC Glucose (mg/dL) 246 H (70-110) mg/dL Iron (65-175) UG/DL TIBC (228-460) UG/DL % Saturation (15.00-50.00) Transferrin (204.0-354.0) mg/dL Ferritin (22.0-322.0) ng/mL C-Reactive Protein (<1.0) mg/dL Microbiology - Last 24 Hours (Table) 06/12/23 06:15 Blood Culture - Preliminary Blood 06/11/23 22:11 Blood Culture Gram Stain - Final Blood Blood Culture - Final Methicillin resist S. aureus 06/12/23 13:50 Anaerobic Culture - Preliminary Foot - Right 06/12/23 12:00 Gram Stain - Final Foot - Right Wound Culture - Final Methicillin resist S. aureus
--- NOTE | 2023-06-15 14:53 | P.PN ---
Subjective Progress Note Date: 06/13/23 Principal diagnosis: Reason for follow-up is MRSA bacteremia possible diabetic foot ulcer/osteomyelitis Patient is a 67-year male with a past medical history significant for diabetes mellitus hypertension hyperlipidemia hypothyroidism did have a history of diabetic foot ulcer and cellulitis patient presenting to the hospital for eval of generalized weakness and noticed to have MRSA bacteremia prompting this consultation. On today's evaluation that is 06/13/2023, the patient did have a fever of 100.9 at midnight the patient is afebrile since then, the patient is breathing comfortably on room air denies any chest pain shortness of breath or cough no nausea vomiting no abdominal pain no pain to bilateral foot wound area. Patient white count is 9.1, creatinine is 1.56, foot culture growing Staph aureus, foot x-ray diffuse soft tissue swelling but no bony abnormality Objective - Vital Signs Vital signs: Vital Signs Temp 98.6 F 06/13/23 04:00 Pulse 69 06/13/23 04:00 Resp 16 06/13/23 04:00 BP 166/87 06/13/23 04:00 Pulse Ox 97 06/13/23 04:00 FiO2 Intake & Output 06/12/23 06/13/23 06/13/23 18:59 06:59 18:59 Intake Total 311.494 180.653 Output Total 300 400 Balance 11.494 -219.347 Weight 86.046 kg Intake: Intake, IV Titration 311.494 180.653 Amount Amiodarone 450 mg In 250 Dextrose 5% in Water 250 ml @ 0.5 MG/MIN 16.667 mls/hr IV .Q15H [facility] Rx#: [id number] Heparin Sod,Pork in 0.45% 61.494 180.653 NaCl 25,000 unit In 0.45 % NaCl 1 250ml.bag @ 11. 62 UNITS/KG/HR 9.999 mls/ hr IV .Q24H [facility] Rx#: [id number] Output: Urine 300 400 Other: Voiding Method External Catheter External Catheter - Exam GENERAL DESCRIPTION: An elderly male lying in bed in no distress RESPIRATORY SYSTEM: Unlabored breathing , decreased breath sounds at bases HEART: S1 S2 regular rate and rhythm , ABDOMEN: Soft , no tenderness EXTREMITIES: Right big toe ulcer swelling redness slightly decreased Exam completed with the help of [employer] [place] - Labs CBC & Chem 7: 06/14/23 08:51 06/15/23 09:02 Labs: Abnormal Lab Results - Last 24 Hours (Table) 06/12/23 06/12/23 06/12/23 Range/Units 06:15 06:15 11:17 RBC (4.30-5.90) m/uL Hgb (13.0-17.5) gm/dL Hct (39.0-53.0) % Lymphocytes # (1.0-4.8) k/uL PT (10.0-12.5) sec INR (<1.2) APTT (22.0-30.0) sec POC Glucose (mg/dL) 270 H (70-110) mg/dL Hemoglobin A1c 7.8 H (<=6.0) % Procalcitonin 0.38 H (0.02-0.09) ng/mL 06/12/23 06/12/23 06/12/23 Range/Units 11:20 11:20 16:19 RBC 3.02 L (4.30-5.90) m/uL Hgb 8.9 L (13.0-17.5) gm/dL Hct 26.9 L (39.0-53.0) % Lymphocytes # 0.5 L (1.0-4.8) k/uL PT 13.1 H (10.0-12.5) sec INR 1.2 H (<1.2) APTT 52.0 H (22.0-30.0) sec POC Glucose (mg/dL) 237 H (70-110) mg/dL Hemoglobin A1c (<=6.0) % Procalcitonin (0.02-0.09) ng/mL 06/12/23 06/12/23 06/12/23 Range/Units 16:23 20:07 23:19 RBC (4.30-5.90) m/uL Hgb (13.0-17.5) gm/dL Hct (39.0-53.0) % Lymphocytes # (1.0-4.8) k/uL PT (10.0-12.5) sec INR (<1.2) APTT 31.3 H 39.4 H (22.0-30.0) sec POC Glucose (mg/dL) 330 H (70-110) mg/dL Hemoglobin A1c (<=6.0) % Procalcitonin (0.02-0.09) ng/mL 06/13/23 Range/Units 06:14 RBC (4.30-5.90) m/uL Hgb (13.0-17.5) gm/dL Hct (39.0-53.0) % Lymphocytes # (1.0-4.8) k/uL PT (10.0-12.5) sec INR (<1.2) APTT (22.0-30.0) sec POC Glucose (mg/dL) 264 H (70-110) mg/dL Hemoglobin A1c (<=6.0) % Procalcitonin (0.02-0.09) ng/mL Microbiology - Last 24 Hours (Table) 06/11/23 22:11 Blood Culture - Preliminary Blood 06/11/23 17:50 Urine Culture - Final Urine,Voided 06/10/23 22:00 Blood Culture Gram Stain - Preliminary Blood Blood Culture - Preliminary Presumptive MRSA 06/10/23 22:15 Blood Culture Gram Stain - Preliminary Blood Blood Culture - Preliminary Presumptive MRSA Molecular ID Assessment and Plan Plan: 1patient with MRSA bacteremia source is likely right diabetic foot wound i nfection with secondary cellulitis versus a urinary source less likely 2 culture from the right foot wound both aerobic and anaerobic currently growing Staph aureus and check x-rays of the right foot did show soft tissue swelling but no bony abnormality 3blood cultures has been repeated 06/12/2023 document clearance of bacteremia and so far negative 4patient to vancomycin pharmacy to dose target trough of 15 while watching kidney function and Vanco trough closely Dictation was produced using [employer] dictation software. please excuse any grammatical, word or spelling errors. Time with Patient: Less than 30
--- NOTE | 2023-06-15 14:54 | P.PN ---
Subjective Progress Note Date: 06/14/23 Principal diagnosis: Reason for follow-up is MRSA bacteremia possible diabetic foot ulcer/osteomyelitis Patient is a 67-year male with a past medical history significant for diabetes mellitus hypertension hyperlipidemia hypothyroidism did have a history of diabetic foot ulcer and cellulitis patient presenting to the hospital for eval of generalized weakness and noticed to have MRSA bacteremia prompting this consultation. On today's evaluation that is 06/14/2023, Patient did have resolution of his fever and is afebrile today, patient is currently on room air and denies having any shortness of breath, the patient denies any chest pain or cough, the patient denies any nausea vomiting did not have any abdominal pain and no diarrhea denies pain to bilateral foot wound area. Repeat blood culture 06/12/2023 so far negative foot culture growing MRSA, patient white count is 9.2, creatinine is 1.44 Objective - Vital Signs Vital signs: Vital Signs Temp 97.9 F 06/14/23 08:26 Pulse 72 06/14/23 08:26 Resp 18 06/14/23 08:26 BP 142/83 06/14/23 08:26 Pulse Ox 95 06/14/23 08:26 FiO2 Intake & Output 06/13/23 06/14/23 06/14/23 18:59 06:59 18:59 Intake Total 354 250 Output Total 800 550 Balance -446 -300 Intake: Intake, IV Titration 250 Amount Heparin Sod,Pork in 0.45% 250 NaCl 25,000 unit In 0.45 % NaCl 1 250ml.bag @ 11. 62 UNITS/KG/HR 9.999 mls/ hr IV .Q24H [facility] Rx#: [id number] Oral 354 Output: Urine 800 550 Other: Voiding Method External Catheter External Catheter - Exam GENERAL DESCRIPTION: An elderly male lying in bed in no distress RESPIRATORY SYSTEM: Unlabored breathing , decreased breath sounds at bases HEART: S1 S2 regular rate and rhythm , ABDOMEN: Soft , no tenderness EXTREMITIES: Right big toe ulcer swelling redness slightly decreased - Labs CBC & Chem 7: 06/14/23 08:51 06/15/23 09:02 Labs: Abnormal Lab Results - Last 24 Hours (Table) 06/13/23 06/13/23 06/13/23 Range/Units 11:38 12:48 16:44 RBC 2.95 L (4.30-5.90) m/uL Hgb 8.2 L (13.0-17.5) gm/dL Hct 26.6 L (39.0-53.0) % MCHC 30.7 L (31.0-37.0) g/dL Lymphocytes # 0.7 L (1.0-4.8) k/uL APTT (22.0-30.0) sec Sodium (137-145) mmol/L Chloride (98-107) mmol/L Carbon Dioxide (22-30) mmol/L BUN (9-20) mg/dL Creatinine (0.66-1.25) mg/dL Glucose (74-99) mg/dL POC Glucose (mg/dL) 290 H 298 H (70-110) mg/dL Calcium (8.4-10.2) mg/dL Total Protein (6.3-8.2) g/dL Albumin (3.5-5.0) g/dL 06/13/23 06/14/23 06/14/23 Range/Units 20:10 06:16 08:51 RBC (4.30-5.90) m/uL Hgb (13.0-17.5) gm/dL Hct (39.0-53.0) % MCHC (31.0-37.0) g/dL Lymphocytes # (1.0-4.8) k/uL APTT 48.5 H (22.0-30.0) sec Sodium (137-145) mmol/L Chloride (98-107) mmol/L Carbon Dioxide (22-30) mmol/L BUN (9-20) mg/dL Creatinine (0.66-1.25) mg/dL Glucose (74-99) mg/dL POC Glucose (mg/dL) 366 H 268 H (70-110) mg/dL Calcium (8.4-10.2) mg/dL Total Protein (6.3-8.2) g/dL Albumin (3.5-5.0) g/dL 06/14/23 06/14/23 Range/Units 08:51 08:51 RBC 2.68 L (4.30-5.90) m/uL Hgb 7.8 L (13.0-17.5) gm/dL Hct 24.3 L (39.0-53.0) % MCHC (31.0-37.0) g/dL Lymphocytes # (1.0-4.8) k/uL APTT (22.0-30.0) sec Sodium 136 L (137-145) mmol/L Chloride 112 H (98-107) mmol/L Carbon Dioxide 20 L (22-30) mmol/L BUN 25 H (9-20) mg/dL Creatinine 1.44 H (0.66-1.25) mg/dL Glucose 276 H (74-99) mg/dL POC Glucose (mg/dL) (70-110) mg/dL Calcium 7.9 L (8.4-10.2) mg/dL Total Protein 4.7 L (6.3-8.2) g/dL Albumin 2.1 L (3.5-5.0) g/dL Microbiology - Last 24 Hours (Table) 06/11/23 17:50 Urine Culture - Final Urine,Voided Christina sp,not albicans/galbr 06/12/23 12:00 Gram Stain - Preliminary Foot - Right Wound Culture - Preliminary Presumptive Staph aureus 06/12/23 06:15 Blood Culture - Preliminary Blood 06/10/23 22:00 Blood Culture Gram Stain - Final Blood Blood Culture - Final Methicillin resist S. aureus 06/10/23 22:15 Blood Culture Gram Stain - Final Blood Blood Culture - Final Methicillin resist S. aureus Molecular ID 06/11/23 22:11 Blood Culture Gram Stain - Preliminary Blood Blood Culture - Preliminary Assessment and Plan (1) MRSA bacteremia Current Visit: Yes Status: Acute Code(s): R78.81 - BACTEREMIA; B95.62 - METHICILLIN RESIS STAPH INFCT CAUSING DISEASES CLASSD [facility] SNOMED Code(s): 32090370193285133 (2) Diabetic foot ulcer Current Visit: No Status: Acute Code(s): E11.621 - TYPE 2 DIABETES MELLITUS WITH FOOT ULCER; L97.509 - NON-PRESSURE CHRONIC ULCER OTH PRT UNSP FOOT W UNSP SEVERITY SNOMED Code(s): 346118197 (3) Penicillin allergy Current Visit: No Status: Acute Code(s): Z88.0 - ALLERGY STATUS TO PENICILLIN SNOMED Code(s): 21412873 (4) Type 2 diabetes mellitus with other skin ulcer Current Visit: No Status: Acute Code(s): E11.622 - TYPE 2 DIABETES MELLITUS WITH OTHER SKIN ULCER; L98.499 - NON-PRESSURE CHRONIC ULCER OF SKIN OF SITES W UNSP SEVERITY SNOMED Code(s): 588500401 Plan: 1patient with MRSA bacteremia source is likely right diabetic foot wound in fection with secondary cellulitis versus a urinary source less likely 2 culture from the right foot wound both aerobic and anaerobic currently growing Staph aureus and check x-rays of the right foot did show soft tissue swelling but no bony abnormality 3blood cultures has been repeated 06/12/2023 and has been negative so far 4patient to vancomycin pharmacy to dose target trough of 15 while watching kidney function and Vanco trough closely, currently waiting for the bone scan to be finalized Dictation was produced using [employer] dictation software. please excuse any grammatical, word or spelling errors. Time with Patient: Less than 30
--- NOTE | 2023-06-15 14:56 | P.PN ---
Subjective Progress Note Date: 06/15/23 Principal diagnosis: Reason for follow-up is MRSA bacteremia possible diabetic foot ulcer/osteomyelitis Patient is a 67-year male with a past medical history significant for diabetes mellitus hypertension hyperlipidemia hypothyroidism did have a history of diabetic foot ulcer and cellulitis patient presenting to the hospital for eval of generalized weakness and noticed to have MRSA bacteremia prompting this consultation. On today's evaluation that is 06/15/2023, patient has been afebrile, patient is breathing comfortably and is currently on room air, patient denies having any significant cough no chest pain shortness of breath, patient denies nausea vomiting or diarrhea and no abdominal pain and denies pain to bilateral foot wound area. No CBC was done today patient creatinine is 1.50 Vanco trough is 17.8 blood culture repeat so far negative both scan is concerning for possible osteomyelitis to the left toe amputation stump site Objective - Vital Signs Vital signs: Vital Signs Temp 97.8 F 06/15/23 09:21 Pulse 70 06/15/23 09:21 Resp 16 06/15/23 09:21 BP 165/88 06/15/23 09:21 Pulse Ox 93 L 06/15/23 09:21 FiO2 Intake & Output 06/14/23 06/15/23 06/15/23 18:59 06:59 18:59 Intake Total 340 250 Output Total 200 500 Balance 140 -250 Weight 86.046 kg Intake: Intake, IV Titration 250 Amount Heparin Sod,Pork in 0.45% 250 NaCl 25,000 unit In 0.45 % NaCl 1 250ml.bag @ 11. 62 UNITS/KG/HR 9.999 mls/ hr IV .Q24H [facility] Rx#: [id number] Oral 340 Output: Urine 200 500 Other: Voiding Method External Catheter External Catheter # Voids 0 - Exam GENERAL DESCRIPTION: An elderly male lying in bed in no distress RESPIRATORY SYSTEM: Unlabored breathing , decreased breath sounds at bases HEART: S1 S2 regular rate and rhythm , ABDOMEN: Soft , no tenderness EXTREMITIES: Right big toe ulcer swelling redness slightly decreased - Labs CBC & Chem 7: 06/14/23 08:51 06/15/23 09:02 Labs: Abnormal Lab Results - Last 24 Hours (Table) 06/13/23 06/14/23 06/14/23 Range/Units 12:48 08:51 11:33 ESR 39 H (0-20) mm/Hr APTT (22.0-30.0) sec Chloride (98-107) mmol/L Carbon Dioxide (22-30) mmol/L BUN (9-20) mg/dL Creatinine (0.66-1.25) mg/dL Glucose (74-99) mg/dL POC Glucose (mg/dL) 417 H (70-110) mg/dL Iron 17 L (65-175) UG/DL TIBC 130 L (228-460) UG/DL % Saturation 13.08 L (15.00-50.00) Transferrin 92.8 L (204.0-354.0) mg/dL Ferritin 555.0 H (22.0-322.0) ng/mL C-Reactive Protein (<1.0) mg/dL 06/14/23 06/14/23 06/15/23 Range/Units 16:40 20:15 06:08 ESR (0-20) mm/Hr APTT (22.0-30.0) sec Chloride (98-107) mmol/L Carbon Dioxide (22-30) mmol/L BUN (9-20) mg/dL Creatinine (0.66-1.25) mg/dL Glucose (74-99) mg/dL POC Glucose (mg/dL) 308 H 338 H 232 H (70-110) mg/dL Iron (65-175) UG/DL TIBC (228-460) UG/DL % Saturation (15.00-50.00) Transferrin (204.0-354.0) mg/dL Ferritin (22.0-322.0) ng/mL C-Reactive Protein (<1.0) mg/dL 06/15/23 06/15/23 Range/Units 09:02 09:02 ESR (0-20) mm/Hr APTT 60.7 H (22.0-30.0) sec Chloride 111 H (98-107) mmol/L Carbon Dioxide 21 L (22-30) mmol/L BUN 22 H (9-20) mg/dL Creatinine 1.50 H (0.66-1.25) mg/dL Glucose 216 H (74-99) mg/dL POC Glucose (mg/dL) (70-110) mg/dL Iron (65-175) UG/DL TIBC (228-460) UG/DL % Saturation (15.00-50.00) Transferrin (204.0-354.0) mg/dL Ferritin (22.0-322.0) ng/mL C-Reactive Protein 17.6 H (<1.0) mg/dL Microbiology - Last 24 Hours (Table) 06/11/23 22:11 Blood Culture Gram Stain - Final Blood Blood Culture - Final Methicillin resist S. aureus 06/12/23 13:50 Anaerobic Culture - Preliminary Foot - Right 06/12/23 12:00 Gram Stain - Final Foot - Right Wound Culture - Final Methicillin resist S. aureus 06/12/23 06:15 Blood Culture - Preliminary Blood Assessment and Plan (1) Foot osteomyelitis, left Current Visit: Yes Status: Acute Code(s): M86.9 - OSTEOMYELITIS, UNSPECIFIED SNOMED Code(s): 6752992313332402 (2) MRSA bacteremia Current Visit: Yes Status: Acute Code(s): R78.81 - BACTEREMIA; B95.62 - METHICILLIN RESIS STAPH INFCT [facility] Code(s): 62665818606394540 (3) Diabetic foot ulcer Current Visit: No Status: Acute Code(s): E11.621 - TYPE 2 DIABETES MELLITUS WITH FOOT ULCER; L97.509 - NON-PRESSURE CHRONIC ULCER OTH PRT UNSP FOOT W UNSP SEVERITY SNOMED Code(s): 069985802 Plan: 1patient with MRSA bacteremia source is likely right diabetic foot wound infection with secondary cellulitis versus a urinary source less likely 2 culture from the right foot wound both aerobic and anaerobic currently growing Staph aureus and check x-rays of the right foot did show soft tissue swelling but no bony abnormality 3blood cultures has been repeated 06/12/2023 and has been negative so far 4patient bone scan suspicious for osteomyelitis to the amputation site on left foot, patient is covered with the vancomycin and will need a PICC line for outpatient IV antibiotic therapy 5urine culture growing Christina glabrata possible colonization/contamination as the patient did not have any urinary symptoms and has shown improvement without getting treatment for it Dictation was produced using [employer] software. please excuse any grammatical, word or spelling errors. Time with Patient: Less than 30
[2023-06-15 16:46] LABS: Glucose,Whole Blood 240 mg/dL (70-110)
[2023-06-15 20:06] LABS: Glucose,Whole Blood 190 mg/dL (70-110)
--- NOTE | 2023-06-15 21:45 | P.PN ---
Subjective Progress Note Date: 06/15/23 Patient is a 67-year-old male with a past medical history of coronary artery disease status post CABG, and stent placement, hypertension, diabetes type 2 insulin-dependent, hypothyroidism brought to the ER for generalized weakness. Patient stated that he has been feeling weak for the last few days. Denies any fever or chills at home. Denies any nausea or vomiting. Patient stated that he was having reduced energy level and having a hard time ambulating. Denies any fever but stated that he was feeling cold at home. Denies any chest pain. no complaint of shortness of breath. There is no current complaint of orthopnea or PND. Because of the symptoms, patient brought to the ER Initial lab work done in the ER showed WBC 14.9, hemoglobin 10.8, platelet count 393, INR greater than 10 PT greater than 130 sodium 139, potassium 4.1, BUN 46, creatinine 2.07 troponin 0.423 EKG done in the ER showed heart rate of 149, no ST segment elevation or depression seen, no T-wave inversions seen. Chest x-ray done in the ER hazy density in the left hemithorax and most likely indicating moderate pleural effusion. CT head done showed no acute intracranial process Patient admitted to internal medicine service 06/11. Patient seen and examined. Blood cultures are positive for MRSA, currently on vancomycin and ID has been consulted. complaining of lethargy and weakness 06/14/2023 This is evaluated today in the medical floor in follow-up. Patient continues on IV heparin drip per cardiology recommendations. Was maintained on warfarin outpatient for history of atrial fibrillation. Echocardiogram reveals an EF of 30-35% with mild pulmonary hypertension, His hemoglobin creased to 7.8 there are no signs of active bleeding at this time. Patient's main complaint is right knee pain and has been having difficulty ambulating. He remains on IV vancomycin for the MRSA bacteremia and is also noted to have a right foot diabetic ulceration. 06/15/2023 Patient evaluated today resting in bed. Undergoing bone scan of the right foot today. Remains on IV vancomycin for MRSA bacteremia. No acute complaints today. Continues on IV heparin. Review of Systems Constitutional: Denied any fatigue denied any fever. Cardio vascular: denied any chest pain, palpitations Gastrointestinal: denied any nausea, vomiting, diarrhea Pulmonary: Denied any shortness of breath cough Neurologic denied any new focal deficits All inpatient medications were reviewed and appropriate changes in these medications as dictated in the interval history and assessment and plan. PHYSICAL EXAMINATION: GENERAL: The patient is alert and oriented x3, not in any acute distress. Well developed, well nourished. HEENT: Pupils are round and equally reacting to light. EOMI. No scleral icterus. No conjunctival pallor. Normocephalic, atraumatic. No pharyngeal erythema. No thyromegaly. CARDIOVASCULAR: S1 and S2 present. No murmurs, rubs, or gallops. PULMONARY: Chest is clear to auscultation, no wheezing or crackles. ABDOMEN: Soft, nontender, nondistended, normoactive bowel sounds. No palpable organomegaly. MUSCULOSKELETAL: No joint swelling or deformity. EXTREMITIES: No cyanosis, clubbing, or pedal edema. NEUROLOGICAL: Gross neurological examination did not reveal any focal deficits. SKIN: No rashes. Assessment and plan MRSA bacteremia due to the diabetic foot ulcer with cultures also growing MRSA. A-fib with RVR heart rate is now controlled. Supratherapeutic INR, resolved Generalized weakness Coronary artery disease status post CABG Hypertension Dyslipidemia Hypothyroidism Chronic kidney disease stage III Uncontrolled diabetes mellitus type 2 Hypercoagulopathy on presentation GI prophylaxis DVT prophylaxis IV heparin Full Code Plan blood culture positive for MRSA, repeat blood cultures ordered Continue on IV heparin, on medical therapy for the cardiomyopathy. Will need anticoagulation on discharge. Continue amiodarone Continue aspirin, Lipitor, Coreg continue pharmacy dose vancomycin Continue accuchecks ACHS and sliding scale insulin, HS levemir added for improved glycemic control cardiology following ID consulted Completing bone scan of the right foot Subacute rehab on discharge of the patient would like to return home if possible. Further workup for the anemia in place patient has iron studies currently pending at this time. The impression and plan of care has been dictated by Zoe Pradhan Nurse Practitioner as directed. Dr. Elaina MD I have performed a history and physical examination and medical decision making of this patient, discussed the same with the dictator, and agree with the dictators assessment and plan as written, documented as a scribe. Based on total visit time, I have performed more than 50% of this visit. Objective - Vital Signs Vital signs: Vital Signs Temp 97.8 F 06/15/23 09:21 Pulse 72 06/15/23 11:57 Resp 16 06/15/23 11:57 BP 158/84 06/15/23 11:57 Pulse Ox 91 L 06/15/23 11:57 FiO2 Intake & Output 06/14/23 06/15/23 06/15/23 18:59 06:59 18:59 Intake Total 340 250 Output Total 200 500 Balance 140 -250 Weight 86.046 kg Intake: Intake, IV Titration 250 Amount Heparin Sod,Pork in 0.45% 250 NaCl 25,000 unit In 0.45 % NaCl 1 250ml.bag @ 11. 62 UNITS/KG/HR 9.999 mls/ hr IV .Q24H [facility] Rx#: [id number] Oral 340 Output: Urine 200 500 Other: Voiding Method External Catheter External Catheter External Catheter # Voids 0 - Labs CBC & Chem 7: 06/14/23 08:51 06/15/23 09:02 Labs: Abnormal Lab Results - Last 24 Hours (Table) 06/13/23 06/14/23 06/14/23 Range/Units 12:48 08:51 16:40 ESR 39 H (0-20) mm/Hr APTT (22.0-30.0) sec Chloride (98-107) mmol/L Carbon Dioxide (22-30) mmol/L BUN (9-20) mg/dL Creatinine (0.66-1.25) mg/dL Glucose (74-99) mg/dL POC Glucose (mg/dL) 308 H (70-110) mg/dL Iron 17 L (65-175) UG/DL TIBC 130 L (228-460) UG/DL % Saturation 13.08 L (15.00-50.00) Transferrin 92.8 L (204.0-354.0) mg/dL Ferritin 555.0 H (22.0-322.0) ng/mL C-Reactive Protein (<1.0) mg/dL 06/14/23 06/15/23 06/15/23 Range/Units 20:15 06:08 09:02 ESR (0-20) mm/Hr APTT (22.0-30.0) sec Chloride 111 H (98-107) mmol/L Carbon Dioxide 21 L (22-30) mmol/L BUN 22 H (9-20) mg/dL Creatinine 1.50 H (0.66-1.25) mg/dL Glucose 216 H (74-99) mg/dL POC Glucose (mg/dL) 338 H 232 H (70-110) mg/dL Iron (65-175) UG/DL TIBC (228-460) UG/DL % Saturation (15.00-50.00) Transferrin (204.0-354.0) mg/dL Ferritin (22.0-322.0) ng/mL C-Reactive Protein 17.6 H (<1.0) mg/dL 06/15/23 06/15/23 Range/Units 09:02 11:46 ESR (0-20) mm/Hr APTT 60.7 H (22.0-30.0) sec Chloride (98-107) mmol/L Carbon Dioxide (22-30) mmol/L BUN (9-20) mg/dL Creatinine (0.66-1.25) mg/dL Glucose (74-99) mg/dL POC Glucose (mg/dL) 246 H (70-110) mg/dL Iron (65-175) UG/DL TIBC (228-460) UG/DL % Saturation (15.00-50.00) Transferrin (204.0-354.0) mg/dL Ferritin (22.0-322.0) ng/mL C-Reactive Protein (<1.0) mg/dL Microbiology - Last 24 Hours (Table) 06/12/23 06:15 Blood Culture - Preliminary Blood 06/11/23 22:11 Blood Culture Gram Stain - Final Blood Blood Culture - Final Methicillin resist S. aureus 06/12/23 13:50 Anaerobic Culture - Preliminary Foot - Right 06/12/23 12:00 Gram Stain - Final Foot - Right Wound Culture - Final Methicillin resist S. aureus Assessment and Plan Time with Patient: Less than 30
[2023-06-16 06:18] LABS: Glucose,Whole Blood 92 mg/dL (70-110)
[2023-06-16 08:54] LABS: African American GFR (CKD) 51 (>60 ml/min/1.73 sqM); Anion Gap 8 mmol/L; Blood Urea Nitrogen 19 mg/dL (9-20); Calcium 8.4 mg/dL (8.4-10.2); Carbon Dioxide 19 mmol/L (22-30); Chloride 113 mmol/L (98-107); Glucose 77 mg/dL (74-99); Non-African American GFR(CKD) 44 (>60 ml/min/1.73 sqM); Potassium 3.9 mmol/L (3.5-5.1); Sodium 140 mmol/L (137-145)
[2023-06-16 11:50] LABS: Glucose,Whole Blood 127 mg/dL (70-110)
--- NOTE | 2023-06-16 12:43 | P.PN ---
Subjective Progress Note Date: 06/16/23 Principal diagnosis: Reason for follow-up is MRSA bacteremia possible diabetic foot ulcer/osteomyelitis Patient is a 67-year male with a past medical history significant for diabetes mellitus hypertension hyperlipidemia hypothyroidism did have a history of diabetic foot ulcer and cellulitis patient presenting to the hospital for eval of generalized weakness and noticed to have MRSA bacteremia prompting this consultation. On today's evaluation that is 06/16/2023,the patient denies any fever or any chills, patient is breathing comfortably on room air, the patient denies chest pain shortness of breath and no significant cough, patient denies abdominal pain, no nausea vomiting or diarrhea. Still complaining of generalized weakness no energy denies pain to bilateral foot wound area. Patient creatinine is 1.59 blood culture repeat has been negative so far Objective - Vital Signs Vital signs: Vital Signs Temp 97.4 F L 06/16/23 11:07 Pulse 74 06/16/23 11:07 Resp 18 06/16/23 11:07 BP 155/79 06/16/23 11:07 Pulse Ox 94 L 06/16/23 11:07 FiO2 Intake & Output 06/15/23 06/16/23 06/16/23 18:59 06:59 18:59 Intake Total 250 224.764 35.991 Output Total 450 400 Balance -200 -175.236 35.991 Intake: Intake, IV Titration 250 224.764 35.991 Amount Heparin Sod,Pork in 0.45% 250 224.764 35.991 NaCl 25,000 unit In 0.45 % NaCl 1 250ml.bag @ 11. 62 UNITS/KG/HR 9.999 mls/ hr IV .Q24H [facility] Rx#: [id number] Output: Urine 450 400 Other: Voiding Method External Catheter External Catheter External Catheter - Exam GENERAL DESCRIPTION: An elderly male lying in bed in no distress RESPIRATORY SYSTEM: Unlabored breathing , decreased breath sounds at bases HEART: S1 S2 regular rate and rhythm , ABDOMEN: Soft , no tenderness EXTREMITIES: Right big toe ulcer swelling redness slightly decreased - Labs CBC & Chem 7: 06/14/23 08:51 06/16/23 07:59 Labs: Abnormal Lab Results - Last 24 Hours (Table) 06/15/23 06/15/23 06/15/23 Range/Units 09:02 16:45 20:05 ESR 46 H (0-20) mm/Hr APTT (22.0-30.0) sec Chloride (98-107) mmol/L Carbon Dioxide (22-30) mmol/L Creatinine (0.66-1.25) mg/dL POC Glucose (mg/dL) 240 H 190 H (70-110) mg/dL 06/16/23 06/16/23 06/16/23 Range/Units 07:59 07:59 11:48 ESR (0-20) mm/Hr APTT 54.7 H (22.0-30.0) sec Chloride 113 H (98-107) mmol/L Carbon Dioxide 19 L (22-30) mmol/L Creatinine 1.59 H (0.66-1.25) mg/dL POC Glucose (mg/dL) 127 H (70-110) mg/dL Microbiology - Last 24 Hours (Table) 06/12/23 06:15 Blood Culture - Preliminary Blood 06/11/23 22:11 Blood Culture Gram Stain - Final Blood Blood Culture - Final Methicillin resist S. aureus Assessment and Plan (1) Foot osteomyelitis, left Current Visit: Yes Status: Acute Code(s): M86.9 - OSTEOMYELITIS, UNSPECIFIED SNOMED Code(s): 1842192637683179 (2) MRSA bacteremia Current Visit: Yes Status: Acute Code(s): R78.81 - BACTEREMIA; B95.62 - METHICILLIN RESIS STAPH INFCT CAUSING DISEASES CLASSD [facility] SNOMED Code(s): 30475042215876769 (3) Diabetic foot ulcer Current Visit: No Status: Acute Code(s): E11.621 - TYPE 2 DIABETES MELLITUS WITH FOOT ULCER; L97.509 - NON-PRESSURE CHRONIC ULCER OTH PRT UNSP FOOT W UNSP SEVERITY SNOMED Code(s): 921011605 Plan: 1patient with MRSA bacteremia source is likely right diabetic foot wound infection with secondary cellulitis versus a urinary source less likely 2 culture from the right foot wound both aerobic and anaerobic currently growing Staph aureus and check x-rays of the right foot did show soft tissue swelling but no bony abnormality 3blood cultures has been repeated 06/12/2023 and has been negative so far 4urine culture growing Christina glabrata possible colonization/contamination as the patient did not have any urinary symptoms and has shown improvement without getting treatment for it 5-patient bone scan suspicious for osteomyelitis to the amputation site on left foot, patient is covered with the vancomycin PICC line has been ordered, keeping in mind his borderline kidney function may not be an ideal candidate for IV vancomycin on discharge daptomycin may be a better option however discharge antibiotics coverage needs to be determined before making the switch Dictation was produced using [employer] dictation software. please excuse any grammatical, word or spelling errors. Time with Patient: Less than 30
--- NOTE | 2023-06-16 14:54 | P.PN ---
Subjective Progress Note Date: 06/16/23 Atrial fibrillation The patient is a 67-year-old gentleman with coronary artery disease status post CABG as well as cardiomyopathy with the most recent echo during this admission showed an EF between 30 to 35% as well as hypertension and dyslipidemia and atrial fibrillation which was paroxysmal was on oral anticoagulation with Coumadin was admitted to the hospital with shortness of breath. He was in a trial fibrillation with rapid ventricular response. Troponin was mildly elevated. The echo revealed impaired LV function with EF between 30 to 35%. June 12, 2023 The patient was seen and evaluated this morning. He is feeling better. The shortness of breath has improved. No pain in the chest. No dizziness or lightheadedness and no feeling of heart racing or fluttering and no presyncope or syncope. He continues to be in atrial fibrillation with controlled heart rate. I am going to DC amiodarone IV and start the patient on amiodarone orally and also consider starting the patient on heparin right now for possible need of heart catheterization if the cardiomyopathy is noted. Please note that his hemoglobin is low and drop to about 8 from 10. We are checking for any BLOOD in the stool. Meanwhile start the patient on heparin IV and consider oral anticoagulation down the line. The examination revealed irregular rhythm with a systolic murmur and diminished breathing sounds bilaterally and no edema was noted June 13, 2023 The patient was seen and evaluated this morning. He is feeling better. The shortness of breath has improved. He continues to be in atrial fibrillation/fl utter with controlled heart rate on the current medical regimen including the current dose of carvedilol as well as amiodarone. He continues to be on heparin IV at this point. INR is in process to be done. Kidney function has been stable. The INR is in process to be done. Gastrointestinal bleeding to be done as well and fecal occult blood was ordered but he did not have any bowel movements. The examination revealed irregular rhythm with a distant heart sounds and diminished breathing sounds bilaterally and mild bilateral lower extremities edema 06/13 Patient denies having any shortness of breath, no chest pain. He denies having any palpitations or racing heartbeat. He is continued on a heparin drip. Repeat blood work reveals hemoglobin of 7.8. Sodium 136, potassium 3.8, chloride 112, CO2 20, BUN 25 creatinine 1.4, blood sugar 276. Patient states that he has had anemia in the past. He denies any known blood in his stool or urine. Yesterday, amiodarone decreased to 200 mg twice daily. 06/14 Blood pressure 158/84, heart rate 72, pulse ox 91% on room air. Repeat blood work reveals sodium 137, potassium 4.1, chloride 111, CO2 21, BUN 22 creatinine 1.5. C-reactive protein 17.6. Patient remains in atrial fibrillation and on heparin gtt. Bone scan done today for MRSA bacteremia and diabetic foot ulcer followed by infectious disease. Patient states he has not had a BM since arrival. We will wait for input from ID re need for PICC before switching to oral anticoagulant. 06/15 Patient complains of pain in his left foot. No edema to the area. He is scheduled for PICC line placement tomorrow. Will continue heparin drip until the PICC line is inserted and then plan to start oral anticoagulation. [facility] Blood pressure 155/79, heart rate 74, pulse ox 94% on room air. Physical Examination Gen: This is a 67-year-old male in no acute distress HEENT: Head is atraumatic, normocephalic. Pupils equal, round. Sclerae is anicteric. NECK: Supple. No JVD. No lymphadenopathy. No thyromegaly. LUNGS: Diminished breath sounds bilaterally. No intercostal retractions. HEART: Irregular rate and rhythm, distant heart sounds. No murmur. ABDOMEN: Soft. Bowel sounds are present. No masses. No tenderness. EXTREMITIES: Mild lower extremity edema. No calf tenderness. NEUROLOGICAL: Patient is awake, alert and oriented x3. Cranial nerves 2 through 12 are grossly intact. Assessment Atrial fibrillation with controlled heart rate History of paroxysmal atrial fibrillation Coronary artery disease and status post CABG Ischemic cardiomyopathy with an ejection fraction around 35% Anemia which has been slightly worse compared to before Supratherapeutic INR Multiple comorbid conditions including diabetes and hypertension dyslipidemia MRSA bacteremia secondary to diabetic foot ulcer Plan Continue heparin IV for now After PICC line is inserted, start patient on Eliquis 5 mg twice daily Following that, patient is cleared for discharge from cardiology once all arrangements are completed. Nurse practitioner note has been reviewed, I agree with documented findings and plan of care. Patient was seen and examined. Objective - Vital Signs Vital signs: Vital Signs Temp 97.4 F L 06/16/23 11:07 Pulse 74 04/24/24 11:07 Resp 18 06/16/23 11:07 BP 155/79 06/16/23 11:07 Pulse Ox 94 L 06/16/23 11:07 FiO2 Intake & Output 06/15/23 06/16/23 06/16/23 18:59 06:59 18:59 Intake Total 250 224.764 35.991 Output Total 450 400 Balance -200 -175.236 35.991 Intake: Intake, IV Titration 250 224.764 35.991 Amount Heparin Sod,Pork in 0.45% 250 224.764 35.991 NaCl 25,000 unit In 0.45 % NaCl 1 250ml.bag @ 11. 62 UNITS/KG/HR 9.999 mls/ hr IV .Q24H [facility] Rx#: [id number] Output: Urine 450 400 Other: Voiding Method External Catheter External Catheter External Catheter - Labs CBC & Chem 7: 06/14/23 08:51 06/16/23 07:59 Labs: Abnormal Lab Results - Last 24 Hours (Table) 06/15/23 06/15/23 06/15/23 Range/Units 09:02 16:45 20:05 ESR 46 H (0-20) mm/Hr APTT (22.0-30.0) sec Chloride (98-107) mmol/L Carbon Dioxide (22-30) mmol/L Creatinine (0.66-1.25) mg/dL POC Glucose (mg/dL) 240 H 190 H (70-110) mg/dL 06/16/23 06/16/23 06/16/23 Range/Units 07:59 07:59 11:48 ESR (0-20) mm/Hr APTT 54.7 H (22.0-30.0) sec Chloride 113 H (98-107) mmol/L Carbon Dioxide 19 L (22-30) mmol/L Creatinine 1.59 H (0.66-1.25) mg/dL POC Glucose (mg/dL) 127 H (70-110) mg/dL Microbiology - Last 24 Hours (Table) 06/12/23 06:15 Blood Culture - Preliminary Blood 06/11/23 22:11 Blood Culture Gram Stain - Final Blood Blood Culture - Final Methicillin resist S. aureus
[2023-06-16 16:20] LABS: Glucose,Whole Blood 120 mg/dL (70-110)
--- NOTE | 2023-06-16 19:45 | P.PN ---
Subjective Progress Note Date: 06/16/23 Patient is a 67-year-old male with a past medical history of coronary artery disease status post CABG, and stent placement, hypertension, diabetes type 2 insulin-dependent, hypothyroidism brought to the ER for generalized weakness. Patient stated that he has been feeling weak for the last few days. Denies any fever or chills at home. Denies any nausea or vomiting. Patient stated that he was having reduced energy level and having a hard time ambulating. Denies any fever but stated that he was feeling cold at home. Denies any chest pain. no complaint of shortness of breath. There is no current complaint of orthopnea or PND. Because of the symptoms, patient brought to the ER Initial lab work done in the ER showed WBC 14.9, hemoglobin 10.8, platelet count 393, INR greater than 10 PT greater than 130 sodium 139, potassium 4.1, BUN 46, creatinine 2.07 troponin 0.423 EKG done in the ER showed heart rate of 149, no ST segment elevation or depression seen, no T-wave inversions seen. Chest x-ray done in the ER hazy density in the left hemithorax and most likely indicating moderate pleural effusion. CT head done showed no acute intracranial process Patient admitted to internal medicine service 06/11. Patient seen and examined. Blood cultures are positive for MRSA, currently on vancomycin and ID has been consulted. complaining of lethargy and weakness 06/14/2023 This is evaluated today in the medical floor in follow-up. Patient continues on IV heparin drip per cardiology recommendations. Was maintained on warfarin outpatient for history of atrial fibrillation. Echocardiogram reveals an EF of 30-35% with mild pulmonary hypertension, His hemoglobin creased to 7.8 there are no signs of active bleeding at this time. Patient's main complaint is right knee pain and has been having difficulty ambulating. He remains on IV vancomycin for the MRSA bacteremia and is also noted to have a right foot diabetic ulceration. 06/15/2023 Patient evaluated today resting in bed. Undergoing bone scan of the right foot today. Remains on IV vancomycin for MRSA bacteremia. No acute complaints today. Continues on IV heparin. 06/16/2023 Patient evaluated today resting in bed. Needs encouragement to be up in the chair for meals. Bone scan completed and difficult to exclude osteomyelitis at the left amputation stump. There is degenerative uptake in the right midfoot. Remains on IV vancomycin. Patient refusing subacute rehab would like to return home on discharge for outpatient antibiotics. There was also concern for aspiration and patient was evaluated by speech therapy. Diet changed to nectar thick consistencies with no straws. Review of Systems Constitutional: Denied any fatigue denied any fever. Cardio vascular: denied any chest pain, palpitations Gastrointestinal: denied any nausea, vomiting, diarrhea Pulmonary: Denied any shortness of breath cough Neurologic denied any new focal deficits All inpatient medications were reviewed and appropriate changes in these medic ations as dictated in the interval history and assessment and plan. PHYSICAL EXAMINATION: GENERAL: The patient is alert and oriented x3, not in any acute distress. Well developed, well nourished. HEENT: Pupils are round and equally reacting to light. EOMI. No scleral icterus. No conjunctival pallor. Normocephalic, atraumatic. No pharyngeal erythema. No thyromegaly. CARDIOVASCULAR: S1 and S2 present. No murmurs, rubs, or gallops. PULMONARY: Chest is clear to auscultation, no wheezing or crackles. ABDOMEN: Soft, nontender, nondistended, normoactive bowel sounds. No palpable organomegaly. MUSCULOSKELETAL: No joint swelling or deformity. EXTREMITIES: No cyanosis, clubbing, or pedal edema. NEUROLOGICAL: Gross neurological examination did not reveal any focal deficits. SKIN: No rashes. Assessment and plan MRSA bacteremia due to the diabetic foot ulcer with cultures also growing MRSA. A-fib with RVR heart rate is now controlled. Supratherapeutic INR, resolved Generalized weakness Dysphagia on nectar tick liquid no straws Coronary artery disease status post CABG Hypertension Dyslipidemia Hypothyroidism Chronic kidney disease stage III Uncontrolled diabetes mellitus type 2 Hypercoagulopathy on presentation Anemia likely iron deficient although ferritin level is elevated likely due to infection. GI prophylaxis DVT prophylaxis IV heparin Full Code Plan blood culture positive for MRSA, repeat blood cultures negative so far. Continue on IV heparin, on medical therapy for the cardiomyopathy. Will need anticoagulation on discharge. Continue amiodarone Continue aspirin, Lipitor, Coreg continue pharmacy dose vancomycin Continue accuchecks ACHS and sliding scale insulin, HS levemir added for improved glycemic control cardiology following PICC line ordered and patient will need outpatient IV antibiotics vancomycin vs. daptomycin. Social work following for coverage. Recommending Subacute rehab on discharge of the patient would like to return home if possible. Repeat labs in the AM. The impression and plan of care has been dictated by Zoe Pradhan Nurse Practitioner as directed. Dr. Elaina MD I have performed a history and physical examination and medical decision making of this patient, discussed the same with the dictator, and agree with the dictators assessment and plan as written, documented as a scribe. Based on total visit time, I have performed more than 50% of this visit. Objective - Vital Signs Vital signs: Vital Signs Temp 97.4 F L 06/16/23 11:07 Pulse 74 06/16/23 11:07 Resp 18 06/16/23 11:07 BP 155/79 06/16/23 11:07 Pulse Ox 94 L 06/16/23 11:07 FiO2 Intake & Output 06/15/23 06/16/23 06/16/23 18:59 06:59 18:59 Intake Total 250 224.764 35.991 Output Total 450 400 Balance -200 -175.236 35.991 Intake: Intake, IV Titration 250 224.764 35.991 Amount Heparin Sod,Pork in 0.45% 250 224.764 35.991 NaCl 25,000 unit In 0.45 % NaCl 1 250ml.bag @ 11. 62 UNITS/KG/HR 9.999 mls/ hr IV .Q24H [facility] Rx#: [id number] Output: Urine 450 400 Other: Voiding Method External Catheter External Catheter External Catheter - Labs CBC & Chem 7: 06/14/23 08:51 06/16/23 07:59 Labs: Abnormal Lab Results - Last 24 Hours (Table) 06/15/23 06/15/23 06/15/23 Range/Units 09:02 16:45 20:05 ESR 46 H (0-20) mm/Hr APTT (22.0-30.0) sec Chloride (98-107) mmol/L Carbon Dioxide (22-30) mmol/L Creatinine (0.66-1.25) mg/dL POC Glucose (mg/dL) 240 H 190 H (70-110) mg/dL 06/16/23 06/16/23 06/16/23 Range/Units 07:59 07:59 11:48 ESR (0-20) mm/Hr APTT 54.7 H (22.0-30.0) sec Chloride 113 H (98-107) mmol/L Carbon Dioxide 19 L (22-30) mmol/L Creatinine 1.59 H (0.66-1.25) mg/dL POC Glucose (mg/dL) 127 H (70-110) mg/dL Microbiology - Last 24 Hours (Table) 06/12/23 06:15 Blood Culture - Preliminary Blood 06/11/23 22:11 Blood Culture Gram Stain - Final Blood Blood Culture - Final Methicillin resist S. aureus Assessment and Plan Time with Patient: Less than 30
[2023-06-16 19:56] LABS: Glucose,Whole Blood 173 mg/dL (70-110)
[2023-06-17 06:05] LABS: Glucose,Whole Blood 125 mg/dL (70-110)
[2023-06-17] MEDS: LIDOCAINE 1% INJ 10MG/ML (20 ML MDV) SQ ONE (09:30)
--- NOTE | 2023-06-17 09:58 | P.OP ---
Date of Procedure: 06/17/23 Description of Procedure: Date of Procedure: Preoperative Diagnosis: Need for long-term IV antibiotic access. Postoperative Diagnosis: Same. Procedure(s) Performed: Ultrasound-guided cannulation left brachial vein. Insertion of peripherally inserted central catheter under fluoroscopic guidance. Anesthesia: local (1% Xylocaine.) Surgeon: Blanca Estimated Blood Loss (ml): 5 IV fluids (ml): 0 Urine output (ml): 0 Pathology: none sent Condition: stable Disposition: no change Indications for Procedure: Patient is a patient will require long-term IV antibiotics as an outpatient patient is offered a PICC line to allow for intravenous administration of antibiotics. Description of Procedure: Patient was brought to the special procedure suite. The left upper extremity sterilely prepped and draped in usual manner. Ultrasound was utilized to identify the brachial vein, as no obvious basilic or cephalic was deemed appropriate for use, the brachial vein which was normally compressible free of visible thrombus. Permenant image was stored. 1% Xylocaine was utilized for local anesthesia tissues overlying the vein. Through this anesthetized area and with the aid of ultrasound a micropuncture needle was utilized to cannulate the vein. Once cannulated, Softip guidewire was advanced into the vein. The needle was withdrawn and a micropuncture sheath and dilator advanced over the guidewire. The guidewire was withdrawn and exchanged for the PICC guidewire. There was inability to cross the area of the subclavian vein, further wires were attempted to do so but were unsuccessful therefore. The catheter was cut to size and left and placed in the subclavian vein. The sheath was peeled away. B lood was easily withdrawn through the catheter and the catheter was then flushed with heparinized saline solution and secured to the skin. Patient tolerated procedure well and was returned to their room in satisfactory and stable condition.
[2023-06-17 10:56] LABS: Basophils # (A) 0.1 k/uL (0-0.2); Basophils % (A) 0 %; Eosinophils # (A) 0.5 k/uL (0-0.7); Eosinophils % (A) 5 %; HCT 27.5 % (39.0-53.0); HGB 8.8 gm/dL (13.0-17.5); Hypochromasia Slight; Lymphocytes # (A) 0.9 k/uL (1.0-4.8); Lymphocytes % (A) 9 %; MCH 28.8 pg (25.0-35.0); Mean Platelet Volume 9.5; Monocytes # (A) 0.9 k/uL (0-1.0); Monocytes % (A) 9 %; Neutrophils # (A) 7.9 k/uL (1.3-7.7); Neutrophils % (A) 76 %; Platelet Count 338 k/uL (150-450); RBC 3.06 m/uL (4.30-5.90); RDW 13.2 % (11.5-15.5); WBC 10.4 k/uL (3.8-10.6)
[2023-06-17 11:27] LABS: Potassium 4.8 mmol/L (3.5-5.1)
[2023-06-17 11:28] LABS: African American GFR (CKD) 55 (>60 ml/min/1.73 sqM); Anion Gap 6 mmol/L; Blood Urea Nitrogen 20 mg/dL (9-20); Calcium 8.5 mg/dL (8.4-10.2); Carbon Dioxide 19 mmol/L (22-30); Chloride 114 mmol/L (98-107); Glucose 90 mg/dL (74-99); Magnesium 1.9 mg/dL (1.6-2.3); Non-African American GFR(CKD) 48 (>60 ml/min/1.73 sqM); Sodium 139 mmol/L (137-145)
[2023-06-17 11:39] LABS: Glucose,Whole Blood 100 mg/dL (70-110)
--- NOTE | 2023-06-17 16:44 | P.PN ---
Subjective Progress Note Date: 06/17/23 Principal diagnosis: Reason for follow-up is MRSA bacteremia possible diabetic foot ulcer/osteomyelitis Patient is a 67-year male with a past medical history significant for diabetes mellitus hypertension hyperlipidemia hypothyroidism did have a history of diabetic foot ulcer and cellulitis patient presenting to the hospital for eval of generalized weakness and noticed to have MRSA bacteremia prompting this consultation. On today's evaluation that is 06/17/2023,the patient remains to be afebrile, patient is on room air not requiring supplemental oxygen and denies any shortness of breath no chest pain or cough.Patient denies having any nausea or vomiting, no abdominal pain and no diarrhea has been reported, denies pain to bilateral foot wound area. The patient white count is 10.4, creatinine 1.50 Vanco trough is 17.8 blood culture repeat has been negative Objective - Vital Signs Vital signs: Vital Signs Temp 97.8 F 06/17/23 11:05 Pulse 78 06/17/23 14:10 Resp 16 06/17/23 14:10 BP 164/82 06/17/23 11:05 Pulse Ox 96 06/17/23 11:05 FiO2 Intake & Output 06/16/23 06/17/23 06/17/23 18:59 06:59 18:59 Intake Total 35.991 214.009 118 Output Total 600 400 Balance -564.009 -185.991 118 Weight 86.046 kg Intake: Intake, IV Titration 35.991 214.009 Amount Heparin Sod,Pork in 0.45% 35.991 214.009 NaCl 25,000 unit In 0.45 % NaCl 1 250ml.bag @ 11. 62 UNITS/KG/HR 9.999 mls/ hr IV .Q24H [facility] Rx#: [id number] Oral 118 Output: Urine 600 400 Other: Voiding Method External Catheter External Catheter External Catheter # Voids 1 - Exam GENERAL DESCRIPTION: An elderly male lying in bed in no distress RESPIRATORY SYSTEM: Unlabored breathing , decreased breath sounds at bases HEART: S1 S2 regular rate and rhythm , ABDOMEN: Soft , no tenderness EXTREMITIES: Bilateral foot ulcers are currently dressed - Labs CBC & Chem 7: 06/17/23 10:00 06/17/23 10:00 Labs: Abnormal Lab Results - Last 24 Hours (Table) 06/16/23 06/17/23 06/17/23 Range/Units 19:55 06:03 10:00 RBC (4.30-5.90) m/uL Hgb (13.0-17.5) gm/dL Hct (39.0-53.0) % Neutrophils # (1.3-7.7) k/uL Lymphocytes # (1.0-4.8) k/uL Chloride 114 H (98-107) mmol/L Carbon Dioxide 19 L (22-30) mmol/L Creatinine 1.50 H (0.66-1.25) mg/dL POC Glucose (mg/dL) 173 H 125 H (70-110) mg/dL 06/17/23 Range/Units 10:00 RBC 3.06 L (4.30-5.90) m/uL Hgb 8.8 L (13.0-17.5) gm/dL Hct 27.5 L (39.0-53.0) % Neutrophils # 7.9 H (1.3-7.7) k/uL Lymphocytes # 0.9 L (1.0-4.8) k/uL Chloride (98-107) mmol/L Carbon Dioxide (22-30) mmol/L Creatinine (0.66-1.25) mg/dL POC Glucose (mg/dL) (70-110) mg/dL Microbiology - Last 24 Hours (Table) 06/12/23 06:15 Blood Culture - Final Blood 06/12/23 13:50 Anaerobic Culture - Final Foot - Right Assessment and Plan (1) Foot osteomyelitis, left Current Visit: Yes Status: Acute Code(s): M86.9 - OSTEOMYELITIS, UNSPECIFIED SNOMED Code(s): 5558978475973574 (2) MRSA bacteremia Current Visit: Yes Status: Acute Code(s): R78.81 - BACTEREMIA; B95.62 - METHICILLIN RESIS STAPH INFCT CAUSING DISEASES [facility] SNOMED Code(s): 32738209091540246 (3) Diabetic foot ulcer Current Visit: No Status: Acute Code(s): E11.621 - TYPE 2 DIABETES MELLITUS WITH FOOT ULCER; L97.509 - NON-PRESSURE CHRONIC ULCER OTH PRT UNSP FOOT W UNSP SEVERITY SNOMED Code(s): 778678783 Plan: 1patient with MRSA bacteremia source is likely right diabetic foot wound infection with secondary cellulitis versus a urinary source less likely 2 culture from the right foot wound both aerobic and anaerobic currently growing Staph aureus and check x-rays of the right foot did show soft tissue swelling but no bony abnormality 3blood cultures has been repeated 06/12/2023 and has been negative so far 4urine culture growing Christina glabrata possible colonization/contamination as the patient did not have any urinary symptoms and has shown improvement without getting treatment for it 5-patient bone scan suspicious for osteomyelitis to the amputation site on left foot, patient did get his bacteremia and repeat blood culture has been negative patient did get a PICC line on 06/17/2023 6-patient is on vancomycin pharmacy to dose which may be an option if the patient is going to a snf with the patient vancomycin trough continue monitor closely for home patient would better be off on daptomycin and vancomycin this has been discussed with the case technician working on discharge Dictation was produced using [employer] dictation software. please excuse any grammatical, word or spelling errors. Time with Patient: Less than 30
[2023-06-17 16:45] LABS: Glucose,Whole Blood 181 mg/dL (70-110)
--- NOTE | 2023-06-17 19:00 | IR ---
EXAMINATION TYPE: IR cvc insert >=5 years DATE OF EXAM: 06/17/2023 FLUOROSCOPY ABX, left brachial vein, 35cm, 1.2min fluoro, 2.9651Epml1. 23 images are submitted.
[2023-06-17 20:00] LABS: Glucose,Whole Blood 166 mg/dL (70-110)
--- NOTE | 2023-06-17 20:46 | P.PN ---
Subjective Progress Note Date: 06/17/23 Patient is a 67-year-old male with a past medical history of coronary artery disease status post CABG, and stent placement, hypertension, diabetes type 2 insulin-dependent, hypothyroidism brought to the ER for generalized weakness. Patient stated that he has been feeling weak for the last few days. Denies any fever or chills at home. Denies any nausea or vomiting. Patient stated that he was having reduced energy level and having a hard time ambulating. Denies any fever but stated that he was feeling cold at home. Denies any chest pain. no complaint of shortness of breath. There is no current complaint of orthopnea or PND. Because of the symptoms, patient brought to the ER Initial lab work done in the ER showed WBC 14.9, hemoglobin 10.8, platelet count 393, INR greater than 10 PT greater than 130 sodium 139, potassium 4.1, BUN 46, creatinine 2.07 troponin 0.423 EKG done in the ER showed heart rate of 149, no ST segment elevation or depression seen, no T-wave inversions seen. Chest x-ray done in the ER hazy density in the left hemithorax and most likely indicating moderate pleural effusion. CT head done showed no acute intracranial process Patient admitted to internal medicine service 06/11. Patient seen and examined. Blood cultures are positive for MRSA, currently on vancomycin and ID has been consulted. complaining of lethargy and weakness 06/14/2023 This is evaluated today in the medical floor in follow-up. Patient continues on IV heparin drip per cardiology recommendations. Was maintained on warfarin outpatient for history of atrial fibrillation. Echocardiogram reveals an EF of 30-35% with mild pulmonary hypertension, His hemoglobin creased to 7.8 there are no signs of active bleeding at this time. Patient's main complaint is right knee pain and has been having difficulty ambulating. He remains on IV vancomycin for the MRSA bacteremia and is also noted to have a right foot diabetic ulceration. 06/15/2023 Patient evaluated today resting in bed. Undergoing bone scan of the right foot today. Remains on IV vancomycin for MRSA bacteremia. No acute complaints today. Continues on IV heparin. 06/16/2023 Patient evaluated today resting in bed. Needs encouragement to be up in the chair for meals. Bone scan completed and difficult to exclude osteomyelitis at the left amputation stump. There is degenerative uptake in the right midfoot. Remains on IV vancomycin. Patient refusing subacute rehab would like to return home on discharge for outpatient antibiotics. There was also concern for aspiration and patient was evaluated by speech therapy. Diet changed to nectar thick consistencies with no straws. 06/17/2023 Patient evaluated today remains mostly on bed rest. PT following and recommending subacute rehab although patient at this time is undecided about going to rehab. He would prefer to return home for outpatient antibiotics. He received a PICC line today and is pending insurance auth for either daptomycin vs. vancomycin on discharge. ID following closely. Patient is being followed by speech therapy. Had modified barium swallow today with concern for aspiration. He will remain on nectar thick liquid. Patient has an osteophyte noted on C3-C4 which is impairing his epiglottis function. This will need surgical intervention by orthopedics if patient is to resume normal swallowing. Patient has creatinine of 1.50 today. Review of Systems Constitutional: Denied any fatigue denied any fever. Cardio vascular: denied any chest pain, palpitations Gastrointestinal: denied any nausea, vomiting, diarrhea Pulmonary: Denied any shortness of breath cough Neurologic denied any new focal deficits All inpatient medications were reviewed and appropriate changes in these medications as dictated in the interval history and assessment and plan. PHYSICAL EXAMINATION: GENERAL: The patient is alert and oriented x3, not in any acute distress. Well developed, well nourished. HEENT: Pupils are round and equally reacting to light. EOMI. No scleral icterus. No conjunctival pallor. Normocephalic, atraumatic. No pharyngeal erythema. No thyromegaly. CARDIOVASCULAR: S1 and S2 present. No murmurs, rubs, or gallops. PULMONARY: Chest is clear to auscultation, no wheezing or crackles. ABDOMEN: Soft, nontender, nondistended, normoactive bowel sounds. No palpable organomegaly. MUSCULOSKELETAL: No joint swelling or deformity. EXTREMITIES: No cyanosis, clubbing, or pedal edema. NEUROLOGICAL: Gross neurological examination did not reveal any focal deficits. SKIN: No rashes. Assessment and plan MRSA bacteremia due to the diabetic foot ulcer with cultures also growing MRSA. A-fib with RVR heart rate is now controlled. Supratherapeutic INR, resolved Generalized weakness Dysphagia on nectar tick liquid no straws due to osteophyte on C3 to C4. Coronary artery disease status post CABG Hypertension Dyslipidemia Hypothyroidism Chronic kidney disease stage III Uncontrolled diabetes mellitus type 2 Hypercoagulopathy on presentation Anemia likely iron deficient although ferritin level is elevated likely due to infection. GI prophylaxis DVT prophylaxis IV heparin Full Code Plan blood culture positive for MRSA, repeat blood cultures negative so far. Continue on IV heparin, on medical therapy for the cardiomyopathy. Will need anticoagulation on discharge. Continue amiodarone Continue aspirin, Lipitor, Coreg continue pharmacy dose vancomycin Continue accuchecks ACHS and sliding scale insulin, HS levemir added for improved glycemic control cardiology following PICC line ordered and patient will need outpatient IV antibiotics vancomycin vs. daptomycin. Social work following for coverage. Recommending Subacute rehab on discharge of the patient would like to return home if possible. Orthopedics referral outpatient for the osteophyte Continue dysphagia diet and nectar thick liquids Possible D/C in the next 24 hours Repeat labs in the AM. The impression and plan of care has been dictated by Zoe Pradhan, Nurse Practitioner as directed. Dr. Elaina MD I have performed a history and physical examination and medical decision making of this patient, discussed the same with the dictator, and agree with the dictators assessment and plan as written, documented as a scribe. Based on total visit time, I have performed more than 50% of this visit. Objective - Vital Signs Vital signs: Vital Signs Temp 97.8 F 06/17/23 11:05 Pulse 78 06/17/23 11:05 Resp 16 06/17/23 11:05 BP 164/82 06/17/23 11:05 Pulse Ox 96 06/17/23 11:05 FiO2 Intake & Output 06/16/23 06/17/23 06/17/23 18:59 06:59 18:59 Intake Total 35.991 214.009 Output Total 600 400 Balance -564.009 -185.991 Weight 86.046 kg Intake: Intake, IV Titration 35.991 214.009 Amount Heparin Sod,Pork in 0.45% 35.991 214.009 NaCl 25,000 unit In 0.45 % NaCl 1 250ml.bag @ 11. 62 UNITS/KG/HR 9.999 mls/ hr IV .Q24H [facility] Rx#: [id number] Output: Urine 600 400 Other: Voiding Method External Catheter External Catheter External Catheter # Voids 1 - Labs CBC & Chem 7: 06/17/23 10:00 06/17/23 10:00 Labs: Abnormal Lab Results - Last 24 Hours (Table) 06/16/23 06/16/23 06/17/23 Range/Units 16:18 19:55 06:03 RBC (4.30-5.90) m/uL Hgb (13.0-17.5) gm/dL Hct (39.0-53.0) % Neutrophils # (1.3-7.7) k/uL Lymphocytes # (1.0-4.8) k/uL Chloride (98-107) mmol/L Carbon Dioxide (22-30) mmol/L Creatinine (0.66-1.25) mg/dL POC Glucose (mg/dL) 120 H 173 H 125 H (70-110) mg/dL 06/17/23 06/17/23 Range/Units 10:00 10:00 RBC 3.06 L (4.30-5.90) m/uL Hgb 8.8 L (13.0-17.5) gm/dL Hct 27.5 L (39.0-53.0) % Neutrophils # 7.9 H (1.3-7.7) k/uL Lymphocytes # 0.9 L (1.0-4.8) k/uL Chloride 114 H (98-107) mmol/L Carbon Dioxide 19 L (22-30) mmol/L Creatinine 1.50 H (0.66-1.25) mg/dL POC Glucose (mg/dL) (70-110) mg/dL Microbiology - Last 24 Hours (Table) 06/12/23 06:15 Blood Culture - Final Blood 06/12/23 13:50 Anaerobic Culture - Final Foot - Right Assessment and Plan Time with Patient: Less than 30
[2023-06-18 04:12] LABS: African American GFR (CKD) 49 (>60 ml/min/1.73 sqM); Anion Gap 4 mmol/L; Blood Urea Nitrogen 20 mg/dL (9-20); Calcium 8.4 mg/dL (8.4-10.2); Carbon Dioxide 21 mmol/L (22-30); Chloride 114 mmol/L (98-107); Glucose 109 mg/dL (74-99); Non-African American GFR(CKD) 43 (>60 ml/min/1.73 sqM); Potassium 4.5 mmol/L (3.5-5.1); Sodium 139 mmol/L (137-145)
[2023-06-18 06:13] LABS: Glucose,Whole Blood 100 mg/dL (70-110)
--- NOTE | 2023-06-18 07:35 | FL ---
Modified barium swallow. HISTORY: Dysphagia. Modified barium swallow was performed with the department of speech pathology. The patient was prese nted with various consistencies of barium. One episode of minimal aspiration with thin liquid barium. Deep penetration to the level of the vocal cords with thin liquid barium. During degrees of penetration with nectar thick barium. Large ventral spurring at C2-3. Pooling of material within the vallecula. Full report is to follow from the depart ment of speech pathology. Impression: As above
--- NOTE | 2023-06-18 09:49 | P.DS ---
Providers Date of admission: 06/11/23 00:02 Attending physician: Jodi Farr Consults: 06/11/23 20:54 Consult Physician Routine Consulting Provider: Azeem Liang Consult Reason/Comments: positive blood cultures, elev. wbc, fevers Do you want consulting provider notified?: Yes Primary care physician: Gregorio Palomino Hospital Course: Final Diagnosis MRSA bacteremia due to the diabetic foot ulcer with cultures also growing MRSA. 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 Supratherapeutic INR, resolved Generalized weakness Dysphagia on nectar tick liquid no straws due to osteophyte on C3 to C4. Coronary artery disease status post CABG Hypertension Dyslipidemia Hypothyroidism Chronic kidney disease stage III Uncontrolled diabetes mellitus type 2 Hypercoagulopathy on presentation Anemia likely iron deficient although ferritin level is elevated likely due to infection. Full Code Discharge Disposition Likely patient is stable for discharge to subacute rehab. He has a PICC line in place will discharge on a course of IV daptomycin managed by infectious disease. Patient was started on Eliquis for the atrial flutter which he remains in atrial flutter with rate controlled at this time. He will need to follow-up with orthopedics was recommended to see Dr. Daniels on discharge for the osteophyte noted on C3-C4 this will require surgical intervention possible shaving in order for patient to be taken off the nectar thick liquids he will need to follow-up with speech therapy closely at rehab as well. He will be discharged on optimized medical therapy for the cardiomyopathy and recommended to follow-up close with cardiology in 1 to 2 weeks on discharge. Prescriptions given for weekly blood work on discharge. Follow-up Dr. Palomino in 1 to 2 days. Hospital Course This is a 67-year-old male with a past medical history of coronary artery disease status post CABG, and stent placement, hypertension, diabetes type 2 insulin-dependent, hypothyroidism brought to the ER for generalized weakness. Patient stated that he has been feeling weak for the last few days. Denies any fever or chills at home. Denies any nausea or vomiting. Patient stated that he was having reduced energy level and having a hard time ambulating. Denies any fever but stated that he was feeling cold at home. Denies any chest pain. no complaint of shortness of breath. There is no current complaint of orthopnea or PND. Because of the symptoms, patient brought to the ER. Initial lab work done in the ER showed WBC 14.9, hemoglobin 10.8, platelet count 393, INR greater than 10 PT greater than 130 sodium 139, potassium 4.1, BUN 46, creatinine 2.07 troponin 0.423. EKG done in the ER showed heart rate of 149, no ST segment elevation or depression seen, no T-wave inversions seen. Chest x-ray done in the ER hazy density in the left hemithorax and most likely indicating moderate pleural effusion. CT head done showed no acute intracranial process. Patient admitted to internal medicine service a consult was placed to ID due to the chronic leg wounds with concern for infection. Cardiology was consulted warfarin was placed on hold. Patient was started on IV heparin. Echocardiogram reveals an EF of 30-35% with mild pulmonary hypertension, His hemoglobin creased to 7.8 there are no signs of active bleeding at this time. Blood cultures are now positive for MRSA and also the wound culture of the right foot was positive for MRSA. Patient was continued on IV vancomycin. He unde rwent a bone scan and difficult to exclude osteomyelitis at the left amputation stump. There is degenerative uptake in the right midfoot. Follow-up blood culture is negative at this time. He had a PICC line placed and is recommended for outpatient IV antibiotics and due to the chronic renal disease recommended to complete a course of IV daptomycin on discharge. Infectious diseases following this closely. Patient was also having concerns for dysphagia and coughing after swallowing. He was evaluated speech therapy and ultimately underwent a modified barium swallow which reveals evidence of aspiration. He will remain on nectar thick liquid. Patient has an osteophyte noted on C3-C4 which is impairing his epiglottis function. This will need surgical intervention by orthopedics if patient is to resume normal swallowing. Patient has creatinine of 1.50. Cardiology is recommending optimize medical therapy for the cardiomyopathy and recommending to transition to Eliquis on discharge and w arfarin has been discontinued at this time. Patient initially had concerns of discharging to subacute rehab however he was recommend by physical therapy and he has been primarily bedrest this hospitalization and would benefit from physical therapy on discharge. He will be discharged to [facility] today. He is not having any chest pain or shortness of breath no nausea vomiting or diarrhea. He is alert x 3 his focal neurological exam is negative he does have intermittent moments of confusion however is able to answer all questions appropriately. He has been afebrile and he is maintained on room air. Blood pressure 149/77 and his heart rate is 70 remains in atrial flutter. He will be discharged to rehab. Please see medication reconciliation for a list of current medications. Thank you for allowing us to participate in the care of this patient. The impression and plan of care has been dictated by Zoe Pradhan, Nurse Practitioner as directed. Dr. Elaina MD I have performed a history and physical examination and medical decision making of this patient, discussed the same with the dictator, and agree with the dictators assessment and plan as written, documented as a scribe. Based on total visit time, I have performed more than 50% of this visit. Patient Condition at Discharge: Fair Plan - Discharge Summary Discharge Rx Participant: No New Discharge Prescriptions: New Apixaban [Eliquis] 5 mg PO BID #60 tab Amiodarone [Cordarone] 200 mg PO BID tab HYDROcodone/APAP 5-325MG [Hawkeye 5-325] 1 each PO Q8HR PRN #4 tab PRN Reason: Pain Acetaminophen Tab [Tylenol] 650 mg PO Q6HR PRN tab PRN Reason: Mild Pain Or Fever > 100.5 Continue Simvastatin [Zocor] 20 mg PO DAILY Hydroxychloroquine Sulfate [Plaquenil] 200 mg PO BID Famotidine [Pepcid] 20 mg PO BID #60 tablet Magnesium Oxide [Magox 400] 400 mg PO DAILY Loratadine [Claritin] 10 mg PO DAILY Testosterone Cypionate [Depo-Testosterone] 200 mg IM Q28D carvediloL [Coreg] 6.25 mg PO BID Aspirin 81 mg PO DAILY Acetaminophen [Tylenol Arthritis] 1,300 mg PO Q8H PRN PRN Reason: Pain Ferrous Sulfate [Iron (65 MG Elemental)] 325 mg PO DAILY Levothyroxine Sodium [Synthroid] 100 mcg PO DAILY Sennosides [Senokot] 8.6 mg PO BID PRN tab PRN Reason: Constipation Meclizine [Antivert] 12.5 mg PO TID PRN 30 Days #90 tablet PRN Reason: Vertigo Losartan [Cozaar] 25 mg PO DAILY #30 tab Balsalazide Disodium [Colazal] 2,250 mg PO BID Ondansetron Odt [Zofran ODT] 4 mg PO TID PRN PRN Reason: Nausea Insuln Asp Prt/Insulin Aspart [NovoLOG MIX 70-30 VIAL] 1 dose SQ HS Insulin Glargine [Lantus Vial] 10 unit SQ DAILY Gabapentin [Neurontin] 300 mg PO TID #9 cap Discontinued amLODIPine [Norvasc] 5 mg PO BID 30 Days #60 tab Warfarin [Coumadin] 5 mg PO DAILY Discharge Medication List Ferrous Sulfate [Iron (65 MG Elemental)] 325 mg PO DAILY 03/04/21 [History] Hydroxychloroquine Sulfate [Plaquenil] 200 mg PO BID 03/04/21 [History] Levothyroxine Sodium [Synthroid] 100 mcg PO DAILY 03/04/21 [History] Simvastatin [Zocor] 20 mg PO DAILY 03/04/21 [History] Famotidine [Pepcid] 20 mg PO BID #60 tablet 03/12/21 [Rx] Sennosides [Senokot] 8.6 mg PO BID PRN tab 03/12/21 [Rx] Losartan [Cozaar] 25 mg PO DAILY #30 tab 03/13/21 [Rx] Meclizine [Antivert] 12.5 mg PO TID PRN 30 Days #90 tablet 03/13/21 [Rx] Balsalazide Disodium [Colazal] 2,250 mg PO BID 03/17/23 [History] Loratadine [Claritin] 10 mg PO DAILY 03/17/23 [History] Magnesium Oxide [Magox 400] 400 mg PO DAILY 03/17/23 [History] Testosterone Cypionate [Depo-Testosterone] 200 mg IM Q28D 03/17/23 [History] Acetaminophen [Tylenol Arthritis] 1,300 mg PO Q8H PRN 06/11/23 [History] Apixaban [Eliquis] 5 mg PO BID #60 tab 06/11/23 [Rx] Aspirin 81 mg PO DAILY 06/11/23 [History] Insulin Glargine [Lantus Vial] 10 unit SQ DAILY 06/11/23 [History] Insuln Asp Prt/Insulin Aspart [NovoLOG MIX 70-30 VIAL] 1 dose SQ HS 06/11/23 [History] Ondansetron Odt [Zofran ODT] 4 mg PO TID PRN 06/11/23 [History] carvediloL [Coreg] 6.25 mg PO BID 06/11/23 [History] Acetaminophen Tab [Tylenol] 650 mg PO Q6HR PRN tab 06/18/23 [Rx] Amiodarone [Cordarone] 200 mg PO BID tab 06/18/23 [Rx] Gabapentin [Neurontin] 300 mg PO TID #9 cap 06/18/23 [Rx] HYDROcodone/APAP 5-325MG [Hawkeye 5-325] 1 each PO Q8HR PRN #4 tab 06/18/23 [Rx] Follow up Appointment(s)/Referral(s): Azeem Liang MD [STAFF PHYSICIAN] - 1 Week Nigel Rivas MD [STAFF PHYSICIAN] - 1 Week Racheal Farmer DO [Doctor of Osteopathic Medicine] - 1 Week Solis Moraes MD [Medical Doctor] - 1-2 Days (To follow at [facility] ) Gregorio Palomino MD [Primary Care Provider] - 1 Week Ambulatory/Diagnostic Orders: C Reactive Protein [LAB.AMB] Location: None Selected Comprehensive Metabolic Panel [LAB.AMB] Location: None Selected Erythrocyte Sedimentation Rate [LAB.AMB] Location: None Selected Complete Blood Count w/diff [LAB.AMB] Time Frame: 1 Week, Location: None Selected Activity/Diet/Wound Care/Special Instructions: Patient will be discharging on IV daptomycin through the PICC line Scripts are provided for weekly blood work Warfarin to be discontinued on discharge and patient has been started on eliquis. Patient to continue on nectar thick liquid needs to follow up with orthopedics O.P for the osteophyte noted on C3-C4 which is impairing swallowing. Discharge Disposition: TRANSFER TO SNF/ECF
[2023-06-18 12:06] LABS: Glucose,Whole Blood 80 mg/dL (70-110)
[2023-06-18] MEDS: APIXABAN 5 MG TAB PO SCH (14:55)
[2023-06-18 16:23] LABS: Glucose,Whole Blood 164 mg/dL (70-110)
[2023-06-18 16:24] VITALS: BP 165/92; PULSE 76; RESP 16; TEMP 98.7
--- NOTE | 2023-06-19 21:22 | P.PN ---
Subjective Progress Note Date: 06/18/23 Principal diagnosis: Reason for follow-up is MRSA bacteremia possible diabetic foot ulcer/osteomyelitis Patient is a 67-year male with a past medical history significant for diabetes mellitus hypertension hyperlipidemia hypothyroidism did have a history of diabetic foot ulcer and cellulitis patient presenting to the hospital for eval of generalized weakness and noticed to have MRSA bacteremia prompting this consultation. On today's evaluation that is 06/18/2023, the patient continues to be afebrile, the patient is on room air and breathing comfortably, the Pt denies having any chest pain or cough, the patient denies having any abdominal pain no vomiting or any diarrhea has been reported by the nursing staff, patient has been to bilateral foot wound area Patient had creatinine 1.64 Vanco trough is 17.8 blood culture repeat negative anaerobe culture negative Objective - Vital Signs Vital signs: Vital Signs Temp 97.9 F 06/18/23 12:14 Pulse 69 06/18/23 12:14 Resp 15 06/18/23 12:14 BP 169/95 06/18/23 12:14 Pulse Ox 96 06/18/23 12:14 FiO2 Intake & Output 06/17/23 06/18/23 06/18/23 18:59 06:59 18:59 Intake Total 118 250.000 Output Total 200 Balance -82 250.000 Weight 86.046 kg Intake: Intake, IV Titration 250.000 Amount Heparin Sod,Pork in 0.45% 250.000 NaCl 25,000 unit In 0.45 % NaCl 1 250ml.bag @ 11. 62 UNITS/KG/HR 9.999 mls/ hr IV .Q24H [facility] Rx#: [id number] Oral 118 Output: Urine 200 Other: Voiding Method External Catheter External Catheter External Catheter # Voids 1 - Exam GENERAL DESCRIPTION: An elderly male lying in bed in no distress RESPIRATORY SYSTEM: Unlabored breathing , decreased breath sounds at bases HEART: S1 S2 regular rate and rhythm , ABDOMEN: Soft , no tenderness EXTREMITIES: Bilateral foot ulcers are currently dressed - Labs CBC & Chem 7: 06/17/23 10:00 06/18/23 03:25 Labs: Abnormal Lab Results - Last 24 Hours (Table) 06/17/23 06/17/23 06/18/23 Range/Units 16:44 19:58 03:25 APTT (22.0-30.0) sec Chloride 114 H (98-107) mmol/L Carbon Dioxide 21 L (22-30) mmol/L Creatinine 1.64 H (0.66-1.25) mg/dL Glucose 109 H (74-99) mg/dL POC Glucose (mg/dL) 181 H 166 H (70-110) mg/dL 06/18/23 06/18/23 Range/Units 03:25 10:45 APTT 35.4 H 38.2 H (22.0-30.0) sec Chloride (98-107) mmol/L Carbon Dioxide (22-30) mmol/L Creatinine (0.66-1.25) mg/dL Glucose (74-99) mg/dL POC Glucose (mg/dL) (70-110) mg/dL Microbiology - Last 24 Hours (Table) 06/12/23 06:15 Blood Culture - Final Blood Assessment and Plan (1) Foot osteomyelitis, left Status: Acute Code(s): M86.9 - OSTEOMYELITIS, UNSPECIFIED SNOMED Code(s): 4872038629083171 (2) MRSA bacteremia Status: Acute Code(s): R78.81 - BACTEREMIA; B95.62 - METHICILLIN RESIS STAPH INFCT CAUSING DISEASES [facility] SNOM[facility] Code(s): 91171667924538161 (3) Diabetic foot ulcer Status: Acute Code(s): E11.621 - TYPE 2 DIABETES MELLITUS WITH FOOT ULCER; L97.509 - NON-PRESSURE CHRONIC ULCER OTH PRT UNSP FOOT W UNSP SEVERITY SNOMED Code(s): 215042881 Plan: 1patient with MRSA bacteremia source is likely right diabetic foot wound infection with secondary cellulitis versus a urinary source less likely 2 culture from the right foot wound both aerobic and anaerobic currently growing Staph aureus and check x-rays of the right foot did show soft tissue swelling but no bony abnormality 3blood cultures has been repeated 06/12/2023 and has been negative so far 4urine culture growing Christina glabrata possible colonization/contamination as the patient did not have any urinary symptoms and has shown improvement without getting treatment for it, hence no need for antifungal on discharge 5-patient bone scan suspicious for osteomyelitis to the amputation site on left foot, patient did get his bacteremia and repeat blood culture has been negative patient did get a PICC line on 06/17/2023 6-[facility] is [facility] vancomycin pharmacy to dose x 6 weeks along with weekly monitoring of CRP and a sed rate and a close outpatient follow-up Dictation was produced using [employer] dictation software. please excuse any grammatical, word or spelling errors. Time with Patient: Less than 30
== END 2023-06-18 19:15 | DRG 281 ==
LOC: EC 19:58 → 3SCARD 06-11 00:02
PROVIDERS: ADMIT Hospitalist; ATTEND Hospitalist
PROC: 05HB33Z Insertion of Infusion Device into Right Basilic Vein, Percutaneous Approach (ICD-10-PCS; 2023-06-15)
PROC: B5181ZA Fluoroscopy of Superior Vena Cava using Low Osmolar Contrast, Guidance (ICD-10-PCS; 2023-06-17)
PROC: B548ZZA Ultrasonography of Superior Vena Cava, Guidance (ICD-10-PCS; 2023-06-17)
PROC: 05HA33Z Insertion of Infusion Device into Left Brachial Vein, Percutaneous Approach (ICD-10-PCS; 2023-06-17)
PROC: 02HV33Z Insertion of Infusion Device into Superior Vena Cava, Percutaneous Approach (ICD-10-PCS; principal; 2023-06-17 10:20)
PROC: F00ZHZZ Bedside Swallowing and Oral Function Assessment (ICD-10-PCS; 2023-06-18)
DX: I48.0 Paroxysmal atrial fibrillation (principal); M86.8X7 Other osteomyelitis, ankle and foot; I21.A1 Myocardial infarction type 2; R62.7 Adult failure to thrive; I25.10 Atherosclerotic heart disease of native coronary artery without angina pectoris; I25.5 Ischemic cardiomyopathy; I48.3 Typical atrial flutter; I27.20 Pulmonary hypertension, unspecified; I12.9 Hypertensive chronic kidney disease with stage 1 through stage 4 chronic kidney disease, or unspecified chronic kidney disease; N18.30 Chronic kidney disease, stage 3 unspecified; B95.62 Methicillin resistant Staphylococcus aureus infection as the cause of diseases classified elsewhere; E03.9 Hypothyroidism, unspecified; E11.621 Type 2 diabetes mellitus with foot ulcer; E11.65 Type 2 diabetes mellitus with hyperglycemia; E11.22 Type 2 diabetes mellitus with diabetic chronic kidney disease; E78.5 Hyperlipidemia, unspecified; T45.515A Adverse effect of anticoagulants, initial encounter; R79.1 Abnormal coagulation profile; Z87.891 Personal history of nicotine dependence; X58.XXXA Exposure to other specified factors, initial encounter; E11.622 Type 2 diabetes mellitus with other skin ulcer; E11.69 Type 2 diabetes mellitus with other specified complication; L97.519 Non-pressure chronic ulcer of other part of right foot with unspecified severity; M25.78 Osteophyte, vertebrae; I08.1 Rheumatic disorders of both mitral and tricuspid valves; R13.10 Dysphagia, unspecified; Z79.4 Long term (current) use of insulin; Z79.01 Long term (current) use of anticoagulants; Z79.82 Long term (current) use of aspirin; Z79.890 Hormone replacement therapy; Z88.0 Allergy status to penicillin; Z79.899 Other long term (current) drug therapy; Z89.412 Acquired absence of left great toe; Z95.1 Presence of aortocoronary bypass graft; Z95.5 Presence of coronary angioplasty implant and graft; Z98.1 Arthrodesis status
CPT/HCPCS: 36410; 36415; 36573; 70450; 71045; 74230; 76770; 76937; 78315; 80048; 80053; 80202; 81001; 82550; 82552; 82565; 82728; 83036; 83540; 83550; 83735; 84145; 84443; 84484; 85025; 85027; 85610; 85652; 85730; 86140; 87040; 87070; 87075; 87077; 87086; 87186; 87205; 93005; 93306; 94760; 96365; 96366; 96367; 99285

== ENCOUNTER 2023-07-31 14:41 | Inpatient (IN) | payer MEDICARE ==
--- NOTE | 2023-07-31 15:14 | ED ---
General Adult HPI - General Chief complaint: Weakness Stated complaint: Weakness Time Seen by Provider: 07/31/23 14:46 Source: patient, RN notes reviewed Mode of arrival: EMS Limitations: no limitations - History of Present Illness Initial comments: 67-year-old male presents to the emergency department for evaluation of generalized weakness. Patient states that he was just discharged from [facility] today. He states that he got home and was unable to ambulate. He is concerned because he is unable to take care of himself. He does report that she is supposed to be getting a wheelchair and other devices but he would not receive them until Wednesday. He states that he was not able to ambulate while in [facility]. He was there for rehab for a foot infection. He was receiving IV antibiotics for approximately 1 month. - Related Data Home Medications Medication Instructions Recorded Confirmed Ferrous Sulfate [Iron (65 MG 325 mg PO DAILY 03/04/21 06/11/23 Elemental)] Hydroxychloroquine Sulfate 200 mg PO BID 03/04/21 06/11/23 [Plaquenil] Levothyroxine Sodium [Synthroid] 100 mcg PO DAILY 03/04/21 06/11/23 Simvastatin [Zocor] 20 mg PO DAILY 03/04/21 06/11/23 Balsalazide Disodium [Colazal] 2,250 mg PO BID 03/17/23 06/11/23 Loratadine [Claritin] 10 mg PO DAILY 03/17/23 06/11/23 Magnesium Oxide [Magox 400] 400 mg PO DAILY 03/17/23 06/11/23 Testosterone Cypionate 200 mg IM Q28D 03/17/23 06/11/23 [Depo-Testosterone] Acetaminophen [Tylenol Arthritis] 1,300 mg PO Q8H PRN 06/11/23 06/11/23 Aspirin 81 mg PO DAILY 06/11/23 06/11/23 Insulin Glargine [Lantus Vial] 10 unit SQ DAILY 06/11/23 06/11/23 Insuln Asp Prt/Insulin Aspart 1 dose SQ HS 06/11/23 06/11/23 [NovoLOG MIX 70-30 VIAL] Ondansetron Odt [Zofran ODT] 4 mg PO TID PRN 06/11/23 06/11/23 carvediloL [Coreg] 6.25 mg PO BID 06/11/23 06/11/23 Previous Rx's Medication Instructions Recorded Famotidine [Pepcid] 20 mg PO BID #60 tablet 03/12/21 Sennosides [Senokot] 8.6 mg PO BID PRN tab 03/12/21 Losartan [Cozaar] 25 mg PO DAILY #30 tab 03/13/21 Meclizine [Antivert] 12.5 mg PO TID PRN 30 Days #90 03/13/21 tablet Apixaban [Eliquis] 5 mg PO BID #60 tab 06/11/23 Acetaminophen Tab [Tylenol] 650 mg PO Q6HR PRN tab 06/18/23 Amiodarone [Cordarone] 200 mg PO BID tab 06/18/23 Gabapentin [Neurontin] 300 mg PO TID #9 cap 06/18/23 HYDROcodone/APAP 5-325MG [[place] 1 each PO Q8HR PRN #4 tab 06/18/23 5-325] Vancomycin 1,500 mg IVPB Q24HR each 06/18/23 Allergies Allergy/AdvReac Type Severity Reaction Status Date / Time Penicillins Allergy Unknown Verified 07/31/23 15:01 Childhood Review of Systems ROS Statement: Those systems with pertinent positive or pertinent negative responses have been documented in the HPI. ROS Other: All systems not noted in ROS Statement are negative. Past Medical History Past Medical History: Diabetes Mellitus, Hyperlipidemia, Hypertension, Thyroid Disorder History of Any Multi-Drug Resistant Organisms: None Reported Date of last positivie culture/infection: 04/21/23 MDRO Source:: Left Foot Past Surgical History: Coronary Bypass/CABG, Heart Catheterization With Stent Additional Past Surgical History / Comment(s): left great and second toe removal. bilat carpal tunnel. neck fusion 5-6-7. triple bypass Past Anesthesia/Blood Transfusion Reactions: No Reported Reaction Additional Past Anesthesia/Blood Transfusion Reaction / Comment(s): no blood transfusion Date of Last Stent Placement:: 02/2002 Past Psychological History: No Psychological Hx Reported Smoking Status: Former smoker Past Alcohol Use History: None Reported Past Drug Use History: None Reported - Past Family History Father History Unknown: Yes Mother History Unknown: Yes General Exam Limitations: no limitations General appearance: alert, in no apparent distress Head exam: Present: atraumatic, normocephalic, normal inspection Eye exam: Present: normal appearance, PERRL, EOMI. Absent: scleral icterus, conjunctival injection, periorbital swelling ENT exam: Present: normal exam, mucous membranes moist Respiratory exam: Present: normal lung sounds bilaterally. Absent: respiratory distress, wheezes, rales, rhonchi, stridor Cardiovascular Exam: Present: regular rate, normal rhythm, normal heart sounds. Absent: systolic murmur, diastolic murmur, rubs, gallop, clicks GI/Abdominal exam: Present: soft. Absent: distended, tenderness, guarding, rebound, rigid Extremities exam: Present: tenderness, normal capillary refill Back exam: Present: normal inspection Neurological exam: Present: alert, oriented X3 Psychiatric exam: Present: normal affect, normal mood Skin exam: Present: warm, dry, normal color, other (diabetic ulcer to left foot). Absent: rash Course Vital Signs 07/31/23 07/31/23 07/31/23 14:59 16:59 19:24 Temperature 98 F Pulse Rate 98 94 100 Respiratory 16 18 18 Rate Blood Pressure 174/119 179/103 154/116 O2 Sat by Pulse 93 L 96 96 Oximetry 07/31/23 07/31/23 07/31/23 20:50 21:38 21:48 Temperature Pulse Rate 97 104 H 88 Respiratory 18 20 18 Rate Blood Pressure 176/120 188/94 166/99 O2 Sat by Pulse 97 94 L 95 Oximetry Medical Decision Making - Medical Decision Making Was pt. sent in by a medical professional or institution ([facility], MIME ARTIST, urgent care, hospital, or retirement...) When possible be specific @ -No Did you speak to anyone other than the patient for history (EMS, parent, family, police, friend...)? What history was obtained from this source @ -No Did you review nursing and triage notes (agree or disagree)? Why? @ -I reviewed and agree with nursing and triage notes Were old charts reviewed (outside hosp., previous admission, EMS record, old EKG, old radiological studies, urgent care reports/EKG's, retirement records)? Report findings @ -No old charts were reviewed Differential Diagnosis (chest pain, altered mental status, abdominal pain women, abdominal pain men, vaginal bleeding, weakness, fever, dyspnea, syncope, headache, dizziness, GI bleed, back pain, seizure, CVA, palpatations, mental health, musculoskeletal)? @ -Differential Weakness: Hypoglycemia, shock, sepsis, hyponatremia, anemia, infection, [place], ETOH, adverse medicine reaction, overdose, stroke, this is not meant to be an all-inclusive list. EKG interpreted by me (3pts min.). @ -EKG at 1525 shows atrial tachycardia rate 96, QRS 148, QTQTc [id number] X-rays interpreted by me (1pt min.). @ -None done CT interpreted by me (1pt min.). @ -None done U/S interpreted by me (1pt. min.). @ -None done What testing was considered but not performed or refused? (CT, X-rays, U/S, labs)? Why? @ -None What meds were considered but not given or refused? Why? @ -None Did you discuss the management of the patient with other professionals (professionals i.e. , PA, MIME ARTIST, lab, RT, psych nurse, social science professor, asset protection officer, teacher, founder and chief technical officer, adult protective caseworker)? Give summary @ -Case discussed with carlos alberto with [facility] was accepting of the admission Was smoking cessation discussed for >3mins.? @ -No Was critical care preformed (if so, how long)? @ -No Were there social determinants of health that impacted care today? How? (Homelessness, low income, unemployed, alcoholism, drug addiction, transportation, low edu. Level, literacy, decrease access to med. care, skilled nursing, rehab)? @ -No Was there de-escalation of care discussed even if they declined (Discuss DNR or withdrawal of care, Hospice)? DNR status @ -No What co-morbidities impacted this encounter? (DM, HTN, Smoking, COPD, CAD, Cancer, CVA, ARF, Chemo, Hep., AIDS, mental health diagnosis, sleep apnea, morbid obesity)? @ -None Was patient admitted / discharged? Hospital course, mention meds given and route, prescriptions, significant lab abnormalities, going to OR and other pertinent info. @ -Admitted. Patient presented to the emergency department for generalized weakness. Patient just released from nursing facility and was unable to ambulate. Patient brought in by ambulance for evaluation. Laboratory studies obtained. CBC, CMP consistent with prior including creatinine 1.96; UA shows 3+ protein, 1+ ketones, large leukocyte esterase. With concern for patient's safety he will be admitted for observation. Patient understanding agreeable plan. Patient stable at time of admission. Case discussed with [facility] who is excepting the admission. Case discussed with Dr. Davis Undiagnosed new problem with uncertain prognosis? @ -No Drug Therapy requiring intensive monitoring for toxicity (Heparin, Nitro, Insuli n, Cardizem)? @ -No Were any procedures done? @ -No Diagnosis/symptom? @ -Generalized weakness, unable to ambulate Acute, or Chronic, or Acute on Chronic? @ -acute Uncomplicated (without systemic symptoms) or Complicated (systemic symptoms)? @ -uncomplicated Side effects of treatment? @ -No Exacerbation, Progression, or Severe Exacerbation? @ -No Poses a threat to life or bodily function? How? (Chest pain, [place], [place], pneumonia, PE, COPD, DKA, ARF, appy, cholecystitis, CVA, Diverticulitis, Homicidal, Suicidal, threat to staff... and all critical care pts) @ -No - Lab Data Result diagrams: 07/31/23 15:35 07/31/23 15:35 Lab Results 07/31/23 07/31/23 07/31/23 Range/Units 15:35 15:35 15:35 WBC 8.7 (3.8-10.6) k/uL RBC 3.91 L (4.30-5.90) m/uL Hgb 10.8 L (13.0-17.5) gm/dL Hct 35.8 L (39.0-53.0) % MCV 91.7 (80.0-100.0) fL MCH 27.6 (25.0-35.0) pg MCHC 30.2 L (31.0-37.0) g/dL RDW 15.1 (11.5-15.5) % Plt Count 242 (150-450) k/uL MPV 8.2 Neutrophils % 85 % Lymphocytes % 7 % Monocytes % 4 % Eosinophils % 3 % Basophils % 1 % Neutrophils # 7.4 (1.3-7.7) k/uL Lymphocytes # 0.6 L (1.0-4.8) k/uL Monocytes # 0.4 (0-1.0) k/uL Eosinophils # 0.2 (0-0.7) k/uL Basophils # 0.1 (0-0.2) k/uL Hypochromasia Slight PT 13.0 H (10.0-12.5) sec INR 1.2 H (<1.2) APTT 29.9 (22.0-30.0) sec Sodium 134 L (137-145) mmol/L Potassium 5.0 (3.5-5.1) mmol/L Chloride 101 (98-107) mmol/L Carbon Dioxide 26 (22-30) mmol/L Anion Gap 7 mmol/L BUN 27 H (9-20) mg/dL Creatinine 1.96 H (0.66-1.25) mg/dL Est GFR (CKD-EPI)AfAm 40 (>60 ml/min/1.73 sqM) Est GFR (CKD-EPI)NonAf 35 (>60 ml/min/1.73 sqM) Glucose 123 H (74-99) mg/dL Plasma Lactic Acid Brigido (0.7-2.0) mmol/L Calcium 8.6 (8.4-10.2) mg/dL Magnesium 1.9 (1.6-2.3) mg/dL Total Bilirubin 1.1 (0.2-1.3) mg/dL AST 23 (17-59) U/L ALT 9 (4-49) U/L Alkaline Phosphatase 76 (38-126) U/L Total Protein 6.3 (6.3-8.2) g/dL Albumin 3.5 (3.5-5.0) g/dL Urine Color Urine Appearance (Clear) Urine pH (5.0-8.0) Ur Specific Belva (1.001-1.035) Urine Protein (Negative) Urine Glucose (UA) (Negative) Urine Ketones (Negative) Urine Blood (Negative) Urine Nitrite (Negative) Urine Bilirubin (Negative) Urine Urobilinogen (<2.0) mg/dL Ur Leukocyte Esterase (Negative) Urine RBC (0-5) /hpf Urine WBC (0-5) /hpf Urine Bacteria (None) /hpf Urine Mucus (None) /hpf Urine Yeast (Budding) (None) /hpf 07/31/23 07/31/23 Range/Units 15:35 18:31 WBC (3.8-10.6) k/uL RBC (4.30-5.90) m/uL Hgb (13.0-17.5) gm/dL Hct (39.0-53.0) % MCV (80.0-100.0) fL MCH (25.0-35.0) pg MCHC (31.0-37.0) g/dL RDW (11.5-15.5) % Plt Count (150-450) k/uL MPV Neutrophils % % Lymphocytes % % Monocytes % % Eosinophils % % Basophils % % Neutrophils # (1.3-7.7) k/uL Lymphocytes # (1.0-4.8) k/uL Monocytes # (0-1.0) k/uL Eosinophils # (0-0.7) k/uL Basophils # (0-0.2) k/uL Hypochromasia PT (10.0-12.5) sec INR (<1.2) APTT (22.0-30.0) sec Sodium (137-145) mmol/L Potassium (3.5-5.1) mmol/L Chloride (98-107) mmol/L Carbon Dioxide (22-30) mmol/L Anion Gap mmol/L BUN (9-20) mg/dL Creatinine (0.66-1.25) mg/dL Est GFR (CKD-EPI)AfAm (>60 ml/min/1.73 sqM) Est GFR (CKD-EPI)NonAf (>60 ml/min/1.73 sqM) Glucose (74-99) mg/dL Plasma Lactic Acid Brigido 1.2 (0.7-2.0) mmol/L Calcium (8.4-10.2) mg/dL Magnesium (1.6-2.3) mg/dL Total Bilirubin (0.2-1.3) mg/dL AST (17-59) U/L ALT (4-49) U/L Alkaline Phosphatase (38-126) U/L Total Protein (6.3-8.2) g/dL Albumin (3.5-5.0) g/dL Urine Color Yellow Urine Appearance Cloudy (Clear) Urine pH 5.5 (5.0-8.0) Ur Specific Belva 1.021 (1.001-1.035) Urine Protein 2+ H (Negative) Urine Glucose (UA) Negative (Negative) Urine Ketones 1+ H (Negative) Urine Blood Negative (Negative) Urine Nitrite Negative (Negative) Urine Bilirubin Negative (Negative) Urine Urobilinogen <2.0 (<2.0) mg/dL Ur Leukocyte Esterase Large H (Negative) Urine RBC 2 (0-5) /hpf Urine WBC 81 H (0-5) /hpf Urine Bacteria Rare H (None) /hpf Urine Mucus Rare H (None) /hpf Urine Yeast (Budding) Occasional H (None) /hpf Disposition Clinical Impression: Generalized weakness Disposition: ADMITTED IP TO THIS HOSP Condition: Stable Is patient prescribed a controlled substance at d/c from ED?: No
[2023-07-31 16:05] LABS: ALT 9 U/L (4-49); AST 23 U/L (17-59); African American GFR (CKD) 40 (>60 ml/min/1.73 sqM); Albumin 3.5 g/dL (3.5-5.0); Alkaline Phosphatase 76 U/L (38-126); Anion Gap 7 mmol/L; Basophils # (A) 0.1 k/uL (0-0.2); Basophils % (A) 1 %; Blood Urea Nitrogen 27 mg/dL (9-20); Calcium 8.6 mg/dL (8.4-10.2); Carbon Dioxide 26 mmol/L (22-30); Chloride 101 mmol/L (98-107); Eosinophils # (A) 0.2 k/uL (0-0.7); Eosinophils % (A) 3 %; Glucose 123 mg/dL (74-99); HCT 35.8 % (39.0-53.0); HGB 10.8 gm/dL (13.0-17.5); Hypochromasia Slight; Lymphocytes # (A) 0.6 k/uL (1.0-4.8); Lymphocytes % (A) 7 %; MCH 27.6 pg (25.0-35.0); MCHC 30.2 g/dL (31.0-37.0); MCV 91.7 fL (80.0-100.0); Magnesium 1.9 mg/dL (1.6-2.3); Mean Platelet Volume 8.2; Monocytes # (A) 0.4 k/uL (0-1.0); Monocytes % (A) 4 %; Neutrophils # (A) 7.4 k/uL (1.3-7.7); Neutrophils % (A) 85 %; Non-African American GFR(CKD) 35 (>60 ml/min/1.73 sqM); Platelet Count 242 k/uL (150-450); RBC 3.91 m/uL (4.30-5.90); RDW 15.1 % (11.5-15.5); Sodium 134 mmol/L (137-145); Total Bilirubin 1.1 mg/dL (0.2-1.3); Total Protein 6.3 g/dL (6.3-8.2); WBC 8.7 k/uL (3.8-10.6)
[2023-07-31 16:13] LABS: INR 1.2 (<1.2); Partial Thromboplastin Time 29.9 sec (22.0-30.0)
--- NOTE | 2023-07-31 16:54 | US ---
EXAMINATION TYPE: US venous doppler duplex LE RT DATE OF EXAM: 07/31/2023 3:07 PM COMPARISON: NONE CLINICAL INDICATION: Male, 67 years old with history of pain; pain in lower leg. No hx of DVT SIDE PERFORMED: Right TECHNIQUE: The lower extremity deep venous system is examined utilizing real time linear array sonog virgil with graded compression, doppler sonography and color-flow sonography. VESSELS IMAGED: Common Femoral Vein Deep Femoral Vein Greater Saphenous Vein * Femoral Vein Popliteal Vein Small Saphenous Vein * Proximal Calf Veins (* superficial vessels) Right Leg: No evidence for DVT IMPRESSION: Grayscale, color doppler, spectral doppler imaging performed of the deep veins of the lo wer extremities. There is normal flow, compressibility, vascular waveforms.
[2023-07-31 18:53] LABS: Appearance,Urine Cloudy (Clear); Bacteria,Urine Rare /hpf; Bilirubin,Urine Negative (Negative); Blood,Urine Negative (Negative); Budding Yeast,Urine Occasional /hpf; Color,Urine Yellow; Glucose,Urine (UA) Negative (Negative); Ketones,Urine 1+ (Negative); Leukocyte Esterase,Urine Large (Negative); Mucus,Urine Rare /hpf; Nitrite,Urine Negative (Negative); PH, Urine 5.5 (5.0-8.0); Protein,Urine 2+ (Negative); RBC,Urine 2 /hpf (0-5); Specific Gravity,Urine 1.021 (1.001-1.035); Urobilinogen,Urine <2.0 mg/dL (<2.0); WBC,Urine 81 /hpf (0-5)
[2023-07-31] MEDS ORDERED: NALOXONE 0.4 MG/ML 1 ML VIAL IV PRN (20:07)
[2023-07-31] MEDS ORDERED: ACETAMINOPHEN TAB 325 MG TAB PO PRN (20:07)
[2023-07-31] MEDS ORDERED: MORPHINE SULFATE 4 MG/ML SYRINGE IV PRN (20:07)
[2023-07-31] MEDS: LABETALOL 5 MG/ML VIAL MDV IVP STA (20:45)
--- NOTE | 2023-07-31 21:08 | XR ---
EXAMINATION TYPE: XR chest 2V DATE OF EXAM: 07/31/2023 5:32 PM CLINICAL INDICATION:Male, 67 years old with history of Weakness; [facility] COMPARISON: 06/10/2023 TECHNIQUE: XR chest 2V. Frontal and lateral views of the chest.. FINDINGS: Lines/Tubes/Devices: No indwelling lines are seen. EKG leads. Heart/mediastinum: Heart appears enlarged. Mediastinum appears normal. Pulmonary vascularity: Central vascular congestion with hazy perihilar opacities and increased inters titial markings likely related to edema. Lungs/Pleura: Bibasilar opacities, left greater than right with blunting of the left costophrenic ang le, likely edema and atelectasis with moderate sized left effusion. No pneumothorax. Musculoskeletal: No acute osseous abnormalities. Moderate degenerative changes. Sternotomy wires. Pa rtially seen cervical fusion hardware. Other findings: None. IMPRESSION: 1. Cardiomegaly with postoperative changes, likely CABG. 2. Congestion, edema, moderate left pleural effusion; correlate for moderate CHF.
[2023-08-01 07:16] LABS: Glucose,Whole Blood 146 mg/dL (70-110)
[2023-08-01 12:11] LABS: Glucose,Whole Blood 160 mg/dL (70-110)
--- NOTE | 2023-08-01 13:53 | P.HPIM ---
History of Present Illness H&P Date: 08/01/23 Chief Complaint: Weakness 67-year-old male presents to the emergency department for evaluation of generalized weakness. Patient states that he was just discharged from [facility] today. He states that he got home and was unable to ambulate. He is concerned because he is unable to take care of himself. He does report that she is supposed to be getting a wheelchair and other devices but he would not receive them until Wednesday. He states that he was not able to ambulate while in [facility]. He was there for rehab for a foot infection. He was receiving IV antibiotics for approximately 1 month. Blood work completed in ED reveals a WBC of 8.7, hemoglobin of 10.8 and platelet count of 242, sodium 134, potassium 5.2, BUNs/creatinine of 27/1.96 which is trended up to 1.4-1.5 baseline and blood glucose of 123 UA is unremarkable except positive for large amount of leukocyte esterase Review of Systems REVIEW OF SYSTEMS: CONSTITUTIONAL: No fever, no malaise, no fatigue. HEENT: No recent visual problems or hearing problems. Denied any sore throat. CARDIOVASCULAR: No chest pain, orthopnea, PND, no palpitations, no syncope. PULMONARY: No shortness of breath, no cough, no hemoptysis. GASTROINTESTINAL: No diarrhea, no nausea, no vomiting, no abdominal pain. NEUROLOGICAL: No headaches, no weakness, no numbness. HEMATOLOGICAL: Denies any bleeding or petechiae. GENITOURINARY: Denies any burning micturition, frequency, or urgency. MUSCULOSKELETAL/RHEUMATOLOGICAL: Denies any joint pain, swelling, or any muscle pain. ENDOCRINE: Denies any polyuria or polydipsia. The rest of the 14-point review of systems is negative. Past Medical History Past Medical History: Diabetes Mellitus, Hyperlipidemia, Hypertension, Thyroid Disorder History of Any Multi-Drug Resistant Organisms: None Reported Date of last positivie culture/infection: 04/21/23 MDRO Source:: Left Foot Past Surgical History: Coronary Bypass/CABG, Heart Catheterization With Stent Additional Past Surgical History / Comment(s): left great and second toe removal. bilat carpal tunnel. neck fusion 5-6-7. triple bypass Past Anesthesia/Blood Transfusion Reactions: No Reported Reaction Additional Past Anesthesia/Blood Transfusion Reaction / Comment(s): no blood transfusion Date of Last Stent Placement:: 02/2002 Past Psychological History: No Psychological Hx Reported Smoking Status: Former smoker Past Alcohol Use History: None Reported Additional Past Alcohol Use History / Comment(s): quit smoking at 38 Past Drug Use History: None Reported - Past Family History Father History Unknown: Yes Mother History Unknown: Yes Medications and Allergies Home Medications Medication Instructions Recorded Confirmed Type Ferrous Sulfate [Iron (65 MG 325 mg PO DAILY 03/04/21 08/01/23 History Elemental)] Hydroxychloroquine Sulfate 200 mg PO BID 03/04/21 08/01/23 History [Plaquenil] Levothyroxine Sodium [Synthroid] 100 mcg PO DAILY@0600 03/04/21 08/01/23 History Famotidine [Pepcid] 20 mg PO BID #60 tablet 03/12/21 08/01/23 Rx Losartan [Cozaar] 25 mg PO DAILY #30 tab 03/13/21 08/01/23 Rx Meclizine [Antivert] 12.5 mg PO TID PRN 30 Days #90 03/13/21 08/01/23 Rx tablet Balsalazide Disodium [Colazal] 2,250 mg PO BID 03/17/23 08/01/23 History Loratadine [Claritin] 10 mg PO DAILY 03/17/23 08/01/23 History Apixaban [Eliquis] 5 mg PO BID #60 tab 06/11/23 08/01/23 Rx carvediloL [Coreg] 6.25 mg PO BID 06/11/23 08/01/23 History Amiodarone [Cordarone] 200 mg PO BID tab 06/18/23 08/01/23 Rx Atorvastatin [Lipitor] 10 mg PO HS 08/01/23 08/01/23 History Gabapentin [Neurontin] 300 mg PO Q8H 08/01/23 08/01/23 History HYDROcodone/APAP 5-325MG [[place] 1 tab PO Q6H PRN 08/01/23 08/01/23 History 5-325] Insulin Glargine-Yfgn [Semglee 30 unit SQ HS 08/01/23 08/01/23 History (Yfgn) Pen] Insulin Lispro See Protocol SQ TID-W/MEALS 08/01/23 08/01/23 History Melatonin 10 mg PO HS 08/01/23 08/01/23 History Ondansetron [Zofran] 4 mg PO TID PRN 08/01/23 08/01/23 History Allergies Allergy/AdvReac Type Severity Reaction Status Date / Time Penicillins Allergy Unknown Verified 07/31/23 15:01 Childhood Physical Exam Vitals: Vital Signs Temp Pulse Pulse Resp BP BP Pulse Ox 08/01/23 09:14 97 08/01/23 06:40 97.8 F 92 116/63 98 08/01/23 01:47 98/63 08/01/23 01:22 97.5 F L 91 102/38 92 L 07/31/23 23:05 97.4 F L 95 97/61 95 07/31/23 22:52 97.4 F L 90 18 173/84 90 L 07/31/23 21:48 88 18 166/99 95 07/31/23 21:38 104 H 20 188/94 94 L 07/31/23 20:50 97 18 176/120 97 07/31/23 19:24 100 18 154/116 96 07/31/23 16:59 94 18 179/103 96 07/31/23 14:59 98 F 98 16 174/119 93 L Intake and Output 07/31/23 08/01/23 08/01/23 22:59 06:59 14:59 Other: # Voids 1 1 # Bowel Movements 1 1 Weight 99.79 kg General appearance: alert, in no apparent distress Head exam: Present: atraumatic, normocephalic, normal inspection Eye exam: Present: normal appearance, PERRL, EOMI. Absent: scleral icterus, conjunctival injection, periorbital swelling ENT exam: Present: normal exam, mucous membranes moist Respiratory exam: Present: normal lung sounds bilaterally. Absent: respiratory distress, wheezes, rales, rhonchi, stridor Cardiovascular Exam: Present: regular rate, normal rhythm, normal heart sounds. Absent: systolic murmur, diastolic murmur, rubs, gallop, clicks GI/Abdominal exam: Present: soft. Absent: distended, tenderness, guarding, rebound, rigid Extremities exam: Present: tenderness, normal capillary refill Back exam: Present: normal inspection Neurological exam: Present: alert, oriented X3 Psychiatric exam: Present: normal affect, normal mood Skin exam: Present: warm, dry, normal color, other (diabetic ulcer to left foot). Absent: rash Results CBC & Chem 7: 07/31/23 15:35 07/31/23 15:35 Labs: Abnormal Lab Results - Last 24 Hours (Table) 07/31/23 07/31/23 07/31/23 Range/Units 15:35 15:35 15:35 RBC 3.91 L (4.30-5.90) m/uL Hgb 10.8 L (13.0-17.5) gm/dL Hct 35.8 L (39.0-53.0) % MCHC 30.2 L (31.0-37.0) g/dL Lymphocytes # 0.6 L (1.0-4.8) k/uL PT 13.0 H (10.0-12.5) sec INR 1.2 H (<1.2) Sodium 134 L (137-145) mmol/L BUN 27 H (9-20) mg/dL Creatinine 1.96 H (0.66-1.25) mg/dL Glucose 123 H (74-99) mg/dL POC Glucose (mg/dL) (70-110) mg/dL Urine Protein (Negative) Urine Ketones (Negative) Ur Leukocyte Esterase (Negative) Urine WBC (0-5) /hpf Urine Bacteria (None) /hpf Urine Mucus (None) /hpf Urine Yeast (Budding) (None) /hpf 07/31/23 08/01/23 08/01/23 Range/Units 18:31 07:14 12:10 RBC (4.30-5.90) m/uL Hgb (13.0-17.5) gm/dL Hct (39.0-53.0) % MCHC (31.0-37.0) g/dL Lymphocytes # (1.0-4.8) k/uL PT (10.0-12.5) sec INR (<1.2) Sodium (137-145) mmol/L BUN (9-20) mg/dL Creatinine (0.66-1.25) mg/dL Glucose (74-99) mg/dL POC Glucose (mg/dL) 146 H 160 H (70-110) mg/dL Urine Protein 2+ H (Negative) Urine Ketones 1+ H (Negative) Ur Leukocyte Esterase Large H (Negative) Urine WBC 81 H (0-5) /hpf Urine Bacteria Rare H (None) /hpf Urine Mucus Rare H (None) /hpf Urine Yeast (Budding) Occasional H (None) /hpf Thrombosis Risk Factor Assmnt - Choose All That Apply Each Factor Represents 1 point: Obesity (BMI >25) Each Risk Factor Represents 2 Points: Age 61-74 years Thrombosis Risk Factor Assessment Total Risk Factor Score: 3 Thrombosis Risk Factor Assessment Level: Moderate Risk Assessment and Plan Assessment: 1. Acute on chronic kidney disease stage III -Patient is placed on IV fluids in form of half-normal saline at rate of 75 cc an hour; monitor strict CARLO's, daily weights, renal function electrolytes. Avoid nephrotoxins and hypotension 2. Weakness/debility; patient was discharged from skilled rehab 24 hours prior to presenting to ED; we will consult PT/OT 3. Possible UTI; UA is positive for large amount of leukocyte esterase; no WBCs or bacteria; white blood count is normal; we will monitor closely without any antibiotics at this time 4. Hypertension; patient's blood pressure soft at this time; patient takes Coreg and losartan 25 mg daily, which will be placed on hold given softer blood pressures 5. Hyperlipidemia; Lipitor 10 mg p.o. nightly 6. Diabetes mellitus with long-term insulin use; patient takes insulin glargine 30 units subcu nightly with the lispro with each meal; we will continue with insulin glargine 30 units subcu nightly and monitor Accu-Cheks before every meal Eliquis at bedtime with insulin sliding scale 7. Hypothyroidism; levothyroxine 100 mcg daily 7. Paroxysmal atrial fibrillation; patient takes Coreg, amiodarone and Eliquis 8. CAD, status post CABG and heart catheterization with stent placement 9. Chronic back pain; [place] 5 mg every 6 hours as needed DVT prophylaxis; SCDs/subcu heparin CODE STATUS; full code
[2023-08-01] MEDS: HYDROcodone/APAP 5-325MG 1 EACH TAB PO PRN (14:11)
[2023-08-01] MEDS: SODIUM CHLORIDE 0.9% 1,000 ML IV SCH (14:13)
[2023-08-01] MEDS: GABAPENTIN 300 MG CAP PO SCH (14:29)
[2023-08-01] MEDS: carvediloL 6.25 MG TAB PO SCH (15:44)
[2023-08-01] MEDS: LOSARTAN 25 MG TAB PO SCH (15:44)
[2023-08-01 17:05] LABS: Glucose,Whole Blood 260 mg/dL (70-110)
[2023-08-01] MEDS: hydrALAZINE HCL 20 MG/ML 1 ML VIAL IVP PRN (18:54)
[2023-08-01 20:22] LABS: Glucose,Whole Blood 324 mg/dL (70-110)
[2023-08-01] MEDS: HYDROXYCHLOROQUINE SULFATE 200 MG TAB PO SCH (20:41)
[2023-08-01] MEDS: AMIODARONE 200 MG TAB PO SCH (20:41)
[2023-08-01] MEDS: INSULIN DETEMIR (LEVEMIR) 100 UNIT/ML SYR SQ SCH (20:41)
[2023-08-01] MEDS: BALSALAZIDE DISODIUM 750 MG CAPSULE PO SCH (20:41)
[2023-08-01] MEDS: APIXABAN 5 MG TAB PO SCH (20:42)
[2023-08-01] MEDS: FAMOTIDINE 20 MG TAB PO SCH (20:42)
[2023-08-01] MEDS: MELATONIN 5 MG TABLET PO SCH (20:42)
[2023-08-01] MEDS: ATORVASTATIN 10 MG TAB PO SCH (20:42)
[2023-08-02] MEDS ORDERED: ZINC OXIDE PASTE (Z-GUARD) 1 APPLIC TOPICAL PRN ×2 (02:55→02:57)
[2023-08-02] MEDS: LEVOTHYROXINE 100 MCG TAB PO SCH (05:45)
[2023-08-02 06:01] LABS: Glucose,Whole Blood 141 mg/dL (70-110)
[2023-08-02] MEDS: LORATADINE 10 MG TAB PO SCH (08:57)
[2023-08-02] MEDS: FERROUS SULFATE 325 MG TAB PO SCH (08:57)
[2023-08-02 10:17] LABS: Basophils # (A) 0.07 X 10*3/uL (0.00-0.10); Basophils % (A) 0.7 %; Eosinophils # (A) 0.28 X 10*3/uL (0.04-0.35); Eosinophils % (A) 2.9 %; HCT 31.6 % (39.6-50.0); HGB 9.7 g/dL (13.0-17.0); Lymphocytes % (A) 6.2 %; MCH 28.2 pg (27.0-32.0); MCHC 30.7 g/dL (32.0-37.0); MCV 91.9 FL (80.0-97.0); Mean Platelet Volume 11.4 FL (9.5-12.2); Monocytes # (A) 0.52 X 10*3/uL (0.20-1.00); Monocytes % (A) 5.4 %; NRBC Per 100 WBC 0 X 10*3/uL (0.00-0.01); Neutrophils # (A) 8.18 X 10*3/uL (1.80-7.70); Neutrophils % (A) 84.4 %; Platelet Count 173 X 10*3/uL (140-440); RBC 3.44 X 10*6/uL (4.40-5.60); RDW 15.2 % (11.5-14.5); WBC 9.69 X 10*3/uL (4.50-10.00)
[2023-08-02 10:31] LABS: BUN/Creat Ratio 13.06 Ratio (12.00-20.00); Blood Urea Nitrogen 23.5 mg/dL (9.0-27.0); Calcium 8.5 mg/dL (8.7-10.3); Carbon Dioxide 25.1 mmol/L (21.6-31.8); Chloride 100 mmol/L (96-109); Glucose 132 mg/dL (70-110); Potassium 4.1 mmol/L (3.5-5.5); Sodium 136 mmol/L (135-145)
[2023-08-02] MEDS: DAPTOmycin 350 MG in SODIUM CHLORIDE 0.9% 50 ML IVPB SCH (10:52)
--- NOTE | 2023-08-02 11:05 | P.CONS ---
History of Present Illness - Reason for Consult Consult date: 08/02/23 - History of Present Illness Patient is a 61-year-old male with a past medical history significant for diabetes mellitus hypertension hyperlipidemia hypothyroidism patient did have a history of diabetic foot ulcer osteomyelitis with recent culture positive for MRSA back in May 2023 that has been treated with a course of IV vancomycin at the local alf, the patient was recently discharged from the alf patient presenting to [facility] ER within 24 hours from discharge from the local alf concerning for when he got home he was unable to ambulate and he was concerned that he was not able to take care of himself patient denies having any fever or any chills patient denies having any chest pain or shortness with occasional cough some nausea but no vomiting no abdominal pain no diarrhea patient white foot wounds are currently healed he did have a necrotic wound to the left heel area denies any worsening pain to that wound or any foul-smelling drainage patient did have a white count of 8.7 on admission creatinine is 1.96 liver enzymes are normal urine has been positive cultures are negative so far patient did have a chest x-ray cardiomegaly and pulmonary vascular congestion infectious disease was consulted for further management of lower extremity wound and need for antibiotic therapy Past Medical History Past Medical History: Diabetes Mellitus, Hyperlipidemia, Hypertension, Thyroid Disorder History of Any Multi-Drug Resistant Organisms: None Reported Year Discovered:: 04/21/23 MDRO Source:: Left Foot Past Surgical History: Coronary Bypass/CABG, Heart Catheterization With Stent Additional Past Surgical History / Comment(s): left great and second toe removal. bilat carpal tunnel. neck fusion 5-6-7. triple bypass Past Anesthesia/Blood Transfusion Reactions: No Reported Reaction Additional Past Anesthesia/Blood Transfusion Reaction / Comm: no blood transfusion Date of Last Stent Placement:: 02/2002 Past Psychological History: No Psychological Hx Reported Smoking Status: Former smoker Past Alcohol Use History: None Reported Additional Past Alcohol Use History / Comment(s): quit smoking at 38 Past Drug Use History: None Reported - Past Family History Father History Unknown: Yes Mother History Unknown: Yes Medications and Allergies Home Medications Medication Instructions Recorded Confirmed Type Ferrous Sulfate [Iron (65 MG 325 mg PO DAILY 03/04/21 08/01/23 History Elemental)] Hydroxychloroquine Sulfate 200 mg PO BID 03/04/21 08/01/23 History [Plaquenil] Levothyroxine Sodium [Synthroid] 100 mcg PO DAILY@0600 03/04/21 08/01/23 History Famotidine [Pepcid] 20 mg PO BID #60 tablet 03/12/21 08/01/23 Rx Losartan [Cozaar] 25 mg PO DAILY #30 tab 03/13/21 08/01/23 Rx Meclizine [Antivert] 12.5 mg PO TID PRN 30 Days #90 03/13/21 08/01/23 Rx tablet Balsalazide Disodium [Colazal] 2,250 mg PO BID 03/17/23 08/01/23 History Loratadine [Claritin] 10 mg PO DAILY 03/17/23 08/01/23 History Apixaban [Eliquis] 5 mg PO BID #60 tab 06/11/23 08/01/23 Rx carvediloL [Coreg] 6.25 mg PO BID 06/11/23 08/01/23 History Amiodarone [Cordarone] 200 mg PO BID tab 06/18/23 08/01/23 Rx Atorvastatin [Lipitor] 10 mg PO HS 08/01/23 08/01/23 History Gabapentin [Neurontin] 300 mg PO Q8H 08/01/23 08/01/23 History HYDROcodone/APAP 5-325MG [[place] 1 tab PO Q6H PRN 08/01/23 08/01/23 History 5-325] Insulin Glargine-Yfgn [Semglee 30 unit SQ HS 08/01/23 08/01/23 History (Yfgn) Pen] Insulin Lispro See Protocol SQ TID-W/MEALS 08/01/23 08/01/23 History Melatonin 10 mg PO HS 08/01/23 08/01/23 History Ondansetron [Zofran] 4 mg PO TID PRN 08/01/23 08/01/23 History Allergies Allergy/AdvReac Type Severity Reaction Status Date / Time Penicillins Allergy Unknown Verified 07/31/23 15:01 Childhood Physical Exam Vitals: Vital Signs Temp Pulse Resp BP BP Pulse Ox 08/02/23 07:00 98.1 F 84 18 180/109 97 08/02/23 05:43 82 95/47 95 08/02/23 02:00 98.0 F 80 18 180/117 98 06/09/24 19:55 98.3 F 88 20 154/80 100 08/01/23 17:02 173/96 08/01/23 15:00 97.7 F 91 18 197/95 98 08/01/23 09:14 97 Intake and Output 08/01/23 08/02/23 08/02/23 22:59 06:59 14:59 Intake Total 118 Output Total 150 Balance -32 Intake: Oral 118 Output: Urine 150 Emesis 0 Other: Voiding Method Bedside Commode Diaper Incontinent # Voids 1 # Bowel Movements 1 Results CBC & Chem 7: 08/03/23 04:04 08/03/23 04:04 Labs: Abnormal Lab Results - Last 24 Hours (Table) 08/01/23 08/01/23 08/01/23 Range/Units 12:10 17:04 20:20 POC Glucose (mg/dL) 160 H 260 H 324 H (70-110) mg/dL 08/02/23 Range/Units 05:59 POC Glucose (mg/dL) 141 H (70-110) mg/dL Microbiology - Last 24 Hours (Table) 07/31/23 18:31 Urine Culture - Final Urine,Voided Assessment and Plan Plan: 1patient with a left heel unstageable pressure ulcer/diabetic foot infection and concern for secondary cellulitis as there was erythema around the area of th e eschar we will need to cover for the gram-positive skin jaycee to be the likely pathogen with the last culture positive for MRSA 2-penicillin allergy that will limit the number of antibiotics safe to use 3-patient did have renal insufficiency high risk of nephrotoxicity from vancomycin 4-we will consult vascular surgery for debridement of the wound and deep culture 5-we will start the patient on daptomycin pending workup completion We will follow on clinical condition and cultures to further adjust medication if needed Thank you for this consultation we will follow the patient along with you Dictation was produced using [employer] dictation software. please excuse any grammatical, word or spelling errors.
[2023-08-02 13:03] LABS: Glucose,Whole Blood 74 mg/dL (70-110)
[2023-08-02 15:22] VITALS: BMI 32.5
--- NOTE | 2023-08-02 16:35 | P.GSCN ---
History of Present Illness History of present illness: 67-year-old gentleman patient known to me from the past. Patient had a right foot surgery third toe amputation and left foot big toe. Amputation done in the past patient came with infected pressure ulcer left heel patient has history of diabetes peripheral vascular disease patient has a wound with the skin necrosis and and also patient has a callus on the plantar aspect of the foot no discharge noted patient is under care of infectious disease for IV antibiotic Chest is clear good entry both lung. Second sound present Abdomen is soft nontender Vascular femorals are 1+ bilateral right DP palpable left DP not palpable patient has a pressure ulcer left heel with some devitalized tissue measurement is 3 x 2 cm Plan is debridement and deep culture Past Medical History Past Medical History: Diabetes Mellitus, Hyperlipidemia, Hypertension, Thyroid Disorder History of Any Multi-Drug Resistant Organisms: None Reported Year Discovered:: 04/21/23 MDRO Source:: Left Foot Past Surgical History: Coronary Bypass/CABG, Heart Catheterization With Stent Additional Past Surgical History / Comment(s): left great and second toe removal. bilat carpal tunnel. neck fusion 5-6-7. triple bypass Past Anesthesia/Blood Transfusion Reactions: No Reported Reaction Additional Past Anesthesia/Blood Transfusion Reaction / Comm: no blood transfusion Date of Last Stent Placement:: 02/2002 Past Psychological History: No Psychological Hx Reported Smoking Status: Former smoker Past Alcohol Use History: None Reported Additional Past Alcohol Use History / Comment(s): quit smoking at 38 Past Drug Use History: None Reported - Past Family History Father History Unknown: Yes Mother History Unknown: Yes Medications and Allergies Home Medications Medication Instructions Recorded Confirmed Type Ferrous Sulfate [Iron (65 MG 325 mg PO DAILY 03/04/21 08/01/23 History Elemental)] Hydroxychloroquine Sulfate 200 mg PO BID 03/04/21 08/01/23 History [Plaquenil] Levothyroxine Sodium [Synthroid] 100 mcg PO DAILY@0600 03/04/21 08/01/23 History Famotidine [Pepcid] 20 mg PO BID #60 tablet 03/12/21 08/01/23 Rx Losartan [Cozaar] 25 mg PO DAILY #30 tab 03/13/21 08/01/23 Rx Meclizine [Antivert] 12.5 mg PO TID PRN 30 Days #90 03/13/21 08/01/23 Rx tablet Balsalazide Disodium [Colazal] 2,250 mg PO BID 03/17/23 08/01/23 History Loratadine [Claritin] 10 mg PO DAILY 03/17/23 08/01/23 History Apixaban [Eliquis] 5 mg PO BID #60 tab 06/11/23 08/01/23 Rx carvediloL [Coreg] 6.25 mg PO BID 06/11/23 08/01/23 History Amiodarone [Cordarone] 200 mg PO BID tab 06/18/23 08/01/23 Rx Atorvastatin [Lipitor] 10 mg PO HS 08/01/23 08/01/23 History Gabapentin [Neurontin] 300 mg PO Q8H 08/01/23 08/01/23 History HYDROcodone/APAP 5-325MG [[place] 1 tab PO Q6H PRN 08/01/23 08/01/23 History 5-325] Insulin Glargine-Yfgn [Semglee 30 unit SQ HS 08/01/23 08/01/23 History (Yfgn) Pen] Insulin Lispro See Protocol SQ TID-W/MEALS 08/01/23 08/01/23 History Melatonin 10 mg PO HS 08/01/23 08/01/23 History Ondansetron [Zofran] 4 mg PO TID PRN 08/01/23 08/01/23 History Allergies Allergy/AdvReac Type Severity Reaction Status Date / Time Penicillins Allergy Unknown Verified 07/31/23 15:01 Childhood Surgical - Exam Vital Signs Temp Pulse Resp BP Pulse Ox 98 F 98 16 174/119 93 L 07/31/23 14:59 07/31/23 14:59 07/31/23 14:59 07/31/23 14:59 07/31/23 14:59 Results - Labs 08/02/23 05:59 08/02/23 05:59 Abnormal Lab Results - Last 24 Hours (Table) 08/01/23 08/01/23 08/02/23 Range/Units 17:04 20:20 05:59 RBC 3.44 L (4.40-5.60) X 10*6/uL Hgb 9.7 L (13.0-17.0) g/dL Hct 31.6 L (39.6-50.0) % MCHC 30.7 L (32.0-37.0) g/dL RDW 15.2 H (11.5-14.5) % Neutrophils # 8.18 H (1.80-7.70) X 10*3/uL Lymphocytes # 0.60 L (0.90-5.00) X 10*3/uL Creatinine (0.6-1.5) mg/dL Est GFR (CKD-EPI) (>=60) Glucose (70-110) mg/dL POC Glucose (mg/dL) 260 H 324 H (70-110) mg/dL Calcium (8.7-10.3) mg/dL 08/02/23 08/02/23 Range/Units 05:59 05:59 RBC (4.40-5.60) X 10*6/uL Hgb (13.0-17.0) g/dL Hct (39.6-50.0) % MCHC (32.0-37.0) g/dL RDW (11.5-14.5) % Neutrophils # (1.80-7.70) X 10*3/uL Lymphocytes # (0.90-5.00) X 10*3/uL Creatinine 1.8 H (0.6-1.5) mg/dL Est GFR (CKD-EPI) 41 L (>=60) Glucose 132 H (70-110) mg/dL POC Glucose (mg/dL) 141 H (70-110) mg/dL Calcium 8.5 L (8.7-10.3) mg/dL Microbiology - Last 24 Hours (Table) 07/31/23 18:31 Urine Culture - Final Urine,Voided Diabetes panel 08/02/23 Range/Units 05:59 Sodium 136 (135-145) mmol/L Potassium 4.1 (3.5-5.5) mmol/L Chloride 100 (96-109) mmol/L Carbon Dioxide 25.1 (21.6-31.8) mmol/L BUN 23.5 (9.0-27.0) mg/dL Creatinine 1.8 H (0.6-1.5) mg/dL Glucose 132 H (70-110) mg/dL Calcium 8.5 L (8.7-10.3) mg/dL Calcium panel 08/02/23 Range/Units 05:59 Calcium 8.5 L (8.7-10.3) mg/dL Pituitary panel 08/02/23 Range/Units 05:59 Sodium 136 (135-145) mmol/L Potassium 4.1 (3.5-5.5) mmol/L Chloride 100 (96-109) mmol/L Carbon Dioxide 25.1 (21.6-31.8) mmol/L BUN 23.5 (9.0-27.0) mg/dL Creatinine 1.8 H (0.6-1.5) mg/dL Glucose 132 H (70-110) mg/dL Calcium 8.5 L (8.7-10.3) mg/dL Adrenal panel 08/02/23 Range/Units 05:59 Sodium 136 (135-145) mmol/L Potassium 4.1 (3.5-5.5) mmol/L Chloride 100 (96-109) mmol/L Carbon Dioxide 25.1 (21.6-31.8) mmol/L BUN 23.5 (9.0-27.0) mg/dL Creatinine 1.8 H (0.6-1.5) mg/dL Glucose 132 H (70-110) mg/dL Calcium 8.5 L (8.7-10.3) mg/dL
[2023-08-02] MEDS: LIDOCAINE 1% INJ 10MG/ML (20 ML MDV) SQ ONE (16:36)
--- NOTE | 2023-08-02 16:42 | P.PCN ---
Description of Procedure: Preop diagnosis is infected pressure wound left heel measurement is 3 x 2 cm Postop the same 3 x 2 x 0.5 cm Procedure left foot was prepped and draped in Prestel manner 1% lidocaine were infiltrated with lidocaine as a Did the debridement down to including subcutaneous tissue Dupuytren's tissue was excised which was sent for deep culture there was some bleeding point which were controlled by nitro stick. Medihoney gel applied to the wound dressing applied patient tarted the procedure well
--- NOTE | 2023-08-02 16:42 | P.PCN ---
Description of Procedure: Preop diagnosis is infected pressure wound left heel measurement is 3 x 2 cm Postop the same measurement is 3 x 2 x 0.5 cm Procedure left foot was prepped draped applied 1% lidocaine were infiltrated using live debridement was performed deepened to deepened to down and including subcutaneous tissue which was excised tissue was sent for deep culture. Wound was irrigated with saline bleeding point which was controlled by nitro stick then replaced Medihoney gel and dressing applied patient tarted the procedure well. Change dressing tomorrow
[2023-08-02 17:24] LABS: Glucose,Whole Blood 58 mg/dL (70-110)
[2023-08-02 17:47] LABS: Glucose,Whole Blood 72 mg/dL (70-110)
--- NOTE | 2023-08-02 19:06 | P.PN ---
Subjective Progress Note Date: 08/02/23 67-year-old male presents to the emergency department for evaluation of generalized weakness. Patient states that he was just discharged from [facility] today. He states that he got home and was unable to ambulate. He is concerned because he is unable to take care of himself. He does report that she is supposed to be getting a wheelchair and other devices but he would not receive them until Wednesday. He states that he was not able to ambulate while in [facility]. He was there for rehab for a foot infection. He was receiving IV antibiotics for approximately 1 month. Blood work completed in ED reveals a WBC of 8.7, hemoglobin of 10.8 and platelet count of 242, sodium 134, potassium 5.2, BUNs/creatinine of 27/1.96 which is trended up to 1.4-1.5 baseline and blood glucose of 123 UA is unremarkable except positive for large amount of leukocyte esterase 08/02/2023 Patient is seen in follow-up this morning currently lying in the bed with infectious disease following maintained on IV antibiotics. Left wound of the heel with some eschar noted will consult vascular surgery Dr. Galindo for possible bedside debridement with deep tissue cultures. Patient has been in and out of the hospital multiple times for infection and cellulitis. [facility] and plans to return there. Patient currently afebrile with no reports of chest pain or shortness of breath. Patient reports not watching her diet with occasional nausea and no vomiting. Review of systems: Constitutional: No reports of fatigue, fever, or chills Cardiovascular: No reports of chest pain or palpitations Respiratory: No reports of shortness of breath or cough GI: reports of nausea, no vomiting, or diarrhea : No reports of dysuria or retention Neurovascular: reports of generalized weakness All medications have been reviewed Physical exam: Gen: This is a 67-year-old male who is awake, alert and oriented x 3, well- developed, elderly appearing, ill-appearing, obese HEENT: Head is atraumatic, normocephalic. Pupils equal, round. Sclerae is anicteric. NECK: Supple. No JVD. No lymphadenopathy. No thyromegaly. LUNGS: Diminished breath sounds bilaterally otherwise clear to auscultation. No wheezes or rhonchi. No intercostal retractions. HEART: S1, S2 are muffled ABDOMEN: Soft. Bowel sounds are present. No masses. No tenderness. EXTREMITIES: No pedal edema. No calf tenderness. Left heel with eschar noted and some sloughing around the surrounding layers NEUROLOGICAL: Patient is awake, alert and oriented x3. Cranial nerves 2 through 12 are grossly intact. Diffusely weak Assessment: -Acute on chronic kidney disease stage III -Left heel unstageable ulcer/diabetic foot infection with redness and concerns for surrounding cellulitis, present on admission, previous cultures were MRSA -Weakness/debility; patient was discharged from skilled rehab 24 hours prior to presenting to ED; we will consult PT/OT -Possible UTI; UA is positive for large amount of leukocyte esterase; no WBCs or bacteria; white blood count is normal; we will monitor closely without any antibiotics at this time -Hypertension; patient's blood pressure soft at this time; patient takes Coreg and losartan 25 mg daily, which will be placed on hold given softer blood pressures -Hyperlipidemia; Lipitor 10 mg p.o. nightly -Diabetes mellitus with long-term insulin use; patient takes insulin glargine 30 units subcu nightly with the lispro with each meal; we will continue with insulin glargine 30 units -Hypothyroidism -Paroxysmal atrial fibrillation; patient takes Coreg, amiodarone and Eliquis -CAD, status post CABG and heart catheterization with stent placement -Chronic back pain; [place] 5 mg every 6 hours as needed -DVT prophylaxis; SCDs/subcu heparin -GI prophylaxis -full code Plan: Patient was [facility] and came back in shortly thereafter for concerns of possible UTI along with concerns for left lower extremity surrounding cellulitis of an unstageable heel wound with eschar noted. Vascular surgery Dr. Galindo consulted and scheduled to undergo debridement with deep tissue cultures Infectious disease following and will continue on daptomycin and follow-up on the cultures. Patient has history of MRSA in the past Consult to PT/OT therapy as patient is significantly weak and was recently d ischarged from [facility] although unable to take care of himself and unable to ambulate Continue local wound care per vascular and infectious disease Recommend aspiration precautions and head of the bed elevated 30 to 45 degrees and supervision with meals Will follow-up on repeat labs and monitor kidney functions. Gentle hydration with concerns of volume overload and will follow-up with repeat labs Continue monitoring Accu-Cheks before meals and at bedtime and will continue with sliding scale and adjust insulins accordingly Due to multiple complex medical issues, prognosis is guarded The impression and plan of care has been dictated by Elizabet Rodriguez, Nurse Practitioner as directed. Dr. Kinsey MD I have performed a history and examination and MDM of this patient, discussed the same with the dictator, and agree with the dictator's assessment and plan as written ,documented as a scribe. Based on total visit time, I have performed more than 50% of the visit. Objective - Vital Signs Vital signs: Vital Signs Temp 98.1 F 08/02/23 07:00 Pulse 84 08/02/23 07:00 Resp 18 08/02/23 07:00 BP 160/74 08/02/23 10:07 Pulse Ox 97 08/02/23 07:00 FiO2 Intake & Output 08/01/23 08/02/23 08/02/23 18:59 06:59 18:59 Intake Total 118 Output Total 150 0 Balance -32 0 Intake: Oral 118 Output: Urine 150 Emesis 0 Other: Voiding Method Bedside Commode Bedside Commode Bedside Commode Diaper Diaper Diaper Incontinent Incontinent Incontinent # Voids 1 1 # Bowel Movements 1 1 - Labs CBC & Chem 7: 08/02/23 05:59 08/02/23 05:59 Labs: Abnormal Lab Results - Last 24 Hours (Table) 08/01/23 08/01/23 08/01/23 Range/Units 12:10 17:04 20:20 RBC (4.40-5.60) X 10*6/uL Hgb (13.0-17.0) g/dL Hct (39.6-50.0) % MCHC (32.0-37.0) g/dL RDW (11.5-14.5) % Neutrophils # (1.80-7.70) X 10*3/uL Lymphocytes # (0.90-5.00) X 10*3/uL Creatinine (0.6-1.5) mg/dL Est GFR (CKD-EPI) (>=60) Glucose (70-110) mg/dL POC Glucose (mg/dL) 160 H 260 H 324 H (70-110) mg/dL Calcium (8.7-10.3) mg/dL 0608/02/23 08/02/23 Range/Units 05:59 05:59 05:59 RBC 3.44 L (4.40-5.60) X 10*6/uL Hgb 9.7 L (13.0-17.0) g/dL Hct 31.6 L (39.6-50.0) % MCHC 30.7 L (32.0-37.0) g/dL RDW 15.2 H (11.5-14.5) % Neutrophils # 8.18 H (1.80-7.70) X 10*3/uL Lymphocytes # 0.60 L (0.90-5.00) X 10*3/uL Creatinine 1.8 H (0.6-1.5) mg/dL Est GFR (CKD-EPI) 41 L (>=60) Glucose 132 H (70-110) mg/dL POC Glucose (mg/dL) 141 H (70-110) mg/dL Calcium 8.5 L (8.7-10.3) mg/dL Microbiology - Last 24 Hours (Table) 07/31/23 18:31 Urine Culture - Final Urine,Voided
[2023-08-02 21:19] LABS: Glucose,Whole Blood 124 mg/dL (70-110)
[2023-08-03 05:54] LABS: Glucose,Whole Blood 106 mg/dL (70-110)
[2023-08-03 09:06] LABS: Basophils # (A) 0.08 X 10*3/uL (0.00-0.10); Basophils % (A) 0.9 %; Eosinophils # (A) 0.37 X 10*3/uL (0.04-0.35); Eosinophils % (A) 3.9 %; HCT 32.7 % (39.6-50.0); HGB 9.9 g/dL (13.0-17.0); Lymphocytes # (A) 0.74 X 10*3/uL (0.90-5.00); Lymphocytes % (A) 7.9 %; MCH 27.8 pg (27.0-32.0); MCHC 30.3 g/dL (32.0-37.0); MCV 91.9 FL (80.0-97.0); Mean Platelet Volume 11.8 FL (9.5-12.2); Monocytes % (A) 7.5 %; NRBC Per 100 WBC 0 X 10*3/uL (0.00-0.01); Neutrophils # (A) 7.46 X 10*3/uL (1.80-7.70); Neutrophils % (A) 79.6 %; Platelet Count 154 X 10*3/uL (140-440); RBC 3.56 X 10*6/uL (4.40-5.60); RDW 15.3 % (11.5-14.5); WBC 9.37 X 10*3/uL (4.50-10.00)
[2023-08-03 09:09] LABS: BUN/Creat Ratio 11.69 Ratio (12.00-20.00); Blood Urea Nitrogen 18.7 mg/dL (9.0-27.0); Calcium 8.4 mg/dL (8.7-10.3); Chloride 102 mmol/L (96-109); Glucose 103 mg/dL (70-110); Magnesium 1.8 mg/dL (1.5-2.4); Potassium 3.9 mmol/L (3.5-5.5); Sodium 140 mmol/L (135-145)
[2023-08-03] MEDS: FAMOTIDINE 20 MG TAB PO SCH (09:52)
[2023-08-03 11:42] LABS: Glucose,Whole Blood 173 mg/dL (70-110)
--- NOTE | 2023-08-03 12:29 | P.PN ---
Subjective Progress Note Date: 08/03/23 Principal diagnosis: Reason for follow-up is left heel infected wound Patient is a 61-year-old male with a past medical history significant for diabetes mellitus hypertension hyperlipidemia hypothyroidism patient did have a history of diabetic foot ulcer osteomyelitis with recent culture positive for MRSA back in May 2023 that has been treated with a course of IV v ancomycin, presented back to the hospital with weakness and continuum of care manager of himself. Patient has been evaluated by vascular surgery and did have debridement of his wound to the left heel cultures obtained did not mention any extension down to the wound. On today's evaluation that is 08/03/2023, the patient continues to be afebrile, the patient is on room air and breathing comfortably, the Pt denies having any chest pain or cough, the patient denies having any abdominal pain no vomiting or any diarrhea denies any worsening pain to the left heel wound area. Patient white count is 9.37 and creatinine is 1.6 cultures are pending Objective - Vital Signs Vital signs: Vital Signs Temp 97.9 F 08/03/23 07:00 Pulse 81 08/03/23 07:00 Resp 17 08/03/23 07:00 BP 176/86 08/03/23 07:00 Pulse Ox 99 08/03/23 07:00 FiO2 Intake & Output 08/02/23 08/03/23 08/03/23 18:59 06:59 18:59 Output Total 200 300 Balance -200 -300 Weight 99.79 kg Output: Urine 200 300 Other: Voiding Method Bedside Commode Bedside Commode Diaper Diaper Incontinent Incontinent # Voids 0 - Exam GENERAL DESCRIPTION: An elderly male lying in bed in no distress RESPIRATORY SYSTEM: Unlabored breathing , decreased breath sounds at bases HEART: S1 S2 regular rate and rhythm , ABDOMEN: Soft , no tenderness EXTREMITIES: Left heel wound is currently dressed Exam completed with the help of [employer] TECHNICIAN - Labs CBC & Chem 7: 08/03/23 04:04 08/03/23 04:04 Labs: Abnormal Lab Results - Last 24 Hours (Table) 08/02/23 08/02/23 08/02/23 Range/Units 05:59 05:59 17:23 RBC 3.44 L (4.40-5.60) X 10*6/uL Hgb 9.7 L (13.0-17.0) g/dL Hct 31.6 L (39.6-50.0) % MCHC 30.7 L (32.0-37.0) g/dL RDW 15.2 H (11.5-14.5) % Neutrophils # 8.18 H (1.80-7.70) X 10*3/uL Lymphocytes # 0.60 L (0.90-5.00) X 10*3/uL Creatinine 1.8 H (0.6-1.5) mg/dL Est GFR (CKD-EPI) 41 L (>=60) Glucose 132 H (70-110) mg/dL POC Glucose (mg/dL) 58 L (70-110) mg/dL Calcium 8.5 L (8.7-10.3) mg/dL 08/02/23 Range/Units 21:18 RBC (4.40-5.60) X 10*6/uL Hgb (13.0-17.0) g/dL Hct (39.6-50.0) % MCHC (32.0-37.0) g/dL RDW (11.5-14.5) % Neutrophils # (1.80-7.70) X 10*3/uL Lymphocytes # (0.90-5.00) X 10*3/uL Creatinine (0.6-1.5) mg/dL Est GFR (CKD-EPI) (>=60) Glucose (70-110) mg/dL POC Glucose (mg/dL) 124 H (70-110) mg/dL Calcium (8.7-10.3) mg/dL Assessment and Plan (1) Cellulitis of left foot Current Visit: No Status: Acute Code(s): L03.116 - CELLULITIS OF LEFT LOWER LIMB SNOMED Code(s): 62853662673446583 (2) Diabetic foot ulcer Current Visit: No Status: Acute Code(s): E11.621 - TYPE 2 DIABETES MELLITUS WITH FOOT ULCER; L97.509 - NON-PRESSURE CHRONIC ULCER OTH PRT UNSP FOOT W UNSP SEVERITY SNOMED Code(s): 225574609 (3) Penicillin allergy Current Visit: No Status: Acute Code(s): Z88.0 - ALLERGY STATUS TO PE NICILLIN SNOMED Code(s): 33373479 Plan: This is a telehealth visit 1patient with a left heel unstageable pressure ulcer/diabetic foot ulcer with secondary infection and concern for secondary cellulitis as there was erythema around the area of the eschar we will need to cover for the gram-positive skin jaycee to be the likely pathogen with the last culture positive for MRSA 2-penicillin allergy that will limit the number of antibiotics safe to use 3-patient did have renal insufficiency high risk of nephrotoxicity from vancomycin 4-patient has been evaluated by vascular surgery and status post debridement of the wound and deep culture which are currently pending 5-we will continue the patient on daptomycin pending finalization of the culture Dictation was produced using [employer] dictation software. please excuse any grammatical, word or spelling errors. Time with Patient: Less than 30
--- NOTE | 2023-08-03 16:07 | P.PN ---
Progress Note - Text 67-year-old gentleman patient had a necrotic pressure ulcer right heel we did the debridement yesterday today will change the dressing use Medihoney gel patient IV antibiotic under care of infectious disease continue with Medihoney gel will change dressing tomorrow
[2023-08-03 17:28] LABS: Glucose,Whole Blood 256 mg/dL (70-110)
[2023-08-03 20:17] LABS: Glucose,Whole Blood 313 mg/dL (70-110)
--- NOTE | 2023-08-04 05:32 | P.PN ---
Subjective Progress Note Date: 08/03/23 67-year-old male presents to the emergency department for evaluation of generalized weakness. Patient states that he was just discharged from [facility] today. He states that he got home and was unable to ambulate. He is concerned because he is unable to take care of himself. He does report that she is supposed to be getting a wheelchair and other devices but he would not receive them until Wednesday. He states that he was not able to ambulate while in [facility]. He was there for rehab for a foot infection. He was receiving IV antibiotics for approximately 1 month. Blood work completed in ED reveals a WBC of 8.7, hemoglobin of 10.8 and platelet count of 242, sodium 134, potassium 5.2, BUNs/creatinine of 27/1.96 which is trended up to 1.4-1.5 baseline and blood glucose of 123 UA is unremarkable except positive for large amount of leukocyte esterase 08/02/2023 Patient is seen in follow-up this morning currently lying in the bed with infectious disease following maintained on IV antibiotics. Left wound of the heel with some eschar noted will consult vascular surgery Dr. Galindo for possible bedside debridement with deep tissue cultures. Patient has been in and out of the hospital multiple times for infection and cellulitis. Patient resides at an [facility] and plans to return there. Patient currently afebrile with no reports of chest pain or shortness of breath. Patient reports not watching her diet with occasional nausea and no vomiting. 08/03/2023 Patient seen in follow-up today maintained on daptomycin with infectious disease following. Preliminary culture showing gram-negative bacilli and patient is status post bedside surgical debridement with vascular surgery. Will continue with local wound care and offloading of these lower extremities. PT/OT therapy to evaluate as patient will most likely need continued rehab for strength and mobility. Patient with significant weakness was discharged from [facility] went home for 1 day and had to return to the hospital with inability to ambulate and care for himself. Patient is afebrile with no reports of chest pain or worsening shortness of breath. Wean FiO2 as tolerated. Patient reports not much of an appetite. Will consult dietary for input and recommendations. Review of systems: Constitutional: No reports of fatigue, fever, or chills Cardiovascular: No reports of chest pain or palpitations Respiratory: No reports of worsening shortness of breath, occasional cough GI: reports of nausea, no vomiting, or diarrhea reports not much of an appetite : No reports of dysuria or retention Neurovascular: reports of generalized weakness All medications have been reviewed Physical exam: Gen: This is a 67-year-old male who is awake, alert and oriented x 3, well- developed, elderly appearing, ill-appearing, obese HEENT: Head is atraumatic, normocephalic. Pupils equal, round. Sclerae is anicteric. NECK: Supple. No JVD. No lymphadenopathy. No thyromegaly. LUNGS: Diminished breath sounds bilaterally otherwise clear to auscultation. No wheezes or rhonchi. No intercostal retractions. HEART: S1, S2 are muffled ABDOMEN: Soft. Bowel sounds are present. No masses. No tenderness. EXTREMITIES: No pedal edema. No calf tenderness. Left heel surgical dressing is dry and intact NEUROLOGICAL: Patient is awake, alert and oriented x3. Cranial nerves 2 through 12 are grossly intact. Diffusely weak Assessment: -Acute on chronic kidney disease stage III -Left heel unstageable ulcer/diabetic foot infection with redness and concerns for surrounding cellulitis, present on admission, previous cultures were MRSA status post bedside surgical debridement -Weakness/debility; patient was discharged from skilled rehab 24 hours prior to presenting to ED; we will consult PT/OT, patient will likely need rehab on discharge for continued strengthening -Possible UTI; UA is positive for large amount of leukocyte esterase; no WBCs or bacteria; white blood count is normal; likely asymptomatic bacteriuria -Hypertension -Hyperlipidemia -Diabetes mellitus with long-term insulin use; patient takes insulin glargine 30 units subcu nightly with the lispro with each meal; we will continue with insulin glargine 30 units -Hypothyroidism -Paroxysmal atrial fibrillation; currently rate controlled -CAD, status post CABG and heart catheterization with stent placement -Chronic back pain -DVT prophylaxis; SCDs/subcu heparin -GI prophylaxis -full code Plan: Patient was recently discharged from [facility] and came back in shortly thereafter for concerns of left lower extremity surrounding cellulitis of an unstageable heel wound with eschar noted. Vascular surgery Dr. Galindo consulted and is status post debridement with deep tissue cultures. Preliminary culture showing gram- negative bacilli Infectious disease following and will continue on daptomycin and follow-up on the cultures. Patient has history of MRSA in the past Consult to PT/OT therapy as patient is significantly weak and was recently discharged from ECF although unable to take care of himself and unable to ambulate Continue local wound care per vascular and infectious disease Recommend aspiration precautions and head of the bed elevated 30 to 45 degrees and supervision with meals. Patient without much of an appetite will consult dietary Will follow-up on repeat labs and monitor kidney functions. Replace electrolytes per protocol Continue monitoring Accu-Cheks before meals and at bedtime and will continue with sliding scale and adjust insulins accordingly Due to multiple complex medical issues, prognosis is guarded Case management/social work regarding discharge planning as patient will likely need ECF The impression and plan of care has been dictated by Elizabet Rodriguez, Nurse Practitioner as directed. Dr. Kinsey MD I have performed a history and examination and MDM of this patient, discussed the same with the dictator, and agree with the dictator's assessment and plan as written ,documented as a scribe. Based on total visit time, I have performed more than 50% of the visit. Objective - Vital Signs Vital signs: Vital Signs Temp 97.5 F L 08/04/23 03:10 Pulse 73 08/04/23 03:10 Resp 16 08/04/23 03:10 BP 178/84 08/04/23 03:10 Pulse Ox 99 08/04/23 03:10 FiO2 Intake & Output 08/03/23 08/03/23 08/04/23 06:59 18:59 06:59 Intake Total 0 Output Total 300 Balance -300 0 Intake: Oral 0 Output: Urine 300 Other: Voiding Method Bedside Commode Bedside Commode Bedside Commode Diaper Diaper Diaper Incontinent Incontinent Incontinent # Voids 0 # Bowel Movements 1 - Labs CBC & Chem 7: 08/03/23 04:04 08/03/23 04:04 Labs: Abnormal Lab Results - Last 24 Hours (Table) 08/03/23 08/03/23 08/03/23 Range/Units 04:04 04:04 11:41 RBC 3.56 L (4.40-5.60) X 10*6/uL Hgb 9.9 L (13.0-17.0) g/dL Hct 32.7 L (39.6-50.0) % MCHC 30.3 L (32.0-37.0) g/dL RDW 15.3 H (11.5-14.5) % Lymphocytes # 0.74 L (0.90-5.00) X 10*3/uL Eosinophils # 0.37 H (0.04-0.35) X 10*3/uL Creatinine 1.6 H (0.6-1.5) mg/dL Est GFR (CKD-EPI) 47 L (>=60) BUN/Creatinine Ratio 11.69 L (12.00-20.00) Ratio POC Glucose (mg/dL) 173 H (70-110) mg/dL Calcium 8.4 L (8.7-10.3) mg/dL 08/03/23 08/03/23 Range/Units 17:26 20:16 RBC (4.40-5.60) X 10*6/uL Hgb (13.0-17.0) g/dL Hct (39.6-50.0) % MCHC (32.0-37.0) g/dL RDW (11.5-14.5) % Lymphocytes # (0.90-5.00) X 10*3/uL Eosinophils # (0.04-0.35) X 10*3/uL Creatinine (0.6-1.5) mg/dL Est GFR (CKD-EPI) (>=60) BUN/Creatinine Ratio (12.00-20.00) Ratio POC Glucose (mg/dL) 256 H 313 H (70-110) mg/dL Calcium (8.7-10.3) mg/dL Microbiology - Last 24 Hours (Table) 08/02/23 16:17 Gram Stain - Preliminary Foot - Left Tissue Culture - Preliminary Gram Neg Bacilli
[2023-08-04 05:56] LABS: Glucose,Whole Blood 119 mg/dL (70-110)
[2023-08-04 08:52] LABS: Basophils # (A) 0.07 X 10*3/uL (0.00-0.10); Basophils % (A) 0.9 %; Eosinophils # (A) 0.27 X 10*3/uL (0.04-0.35); Eosinophils % (A) 3.3 %; HCT 31.3 % (39.6-50.0); HGB 9.4 g/dL (13.0-17.0); Lymphocytes # (A) 0.61 X 10*3/uL (0.90-5.00); Lymphocytes % (A) 7.4 %; MCH 27.7 pg (27.0-32.0); MCV 92.3 FL (80.0-97.0); Mean Platelet Volume 11.9 FL (9.5-12.2); Monocytes # (A) 0.66 X 10*3/uL (0.20-1.00); NRBC Per 100 WBC 0 X 10*3/uL (0.00-0.01); Neutrophils # (A) 6.58 X 10*3/uL (1.80-7.70); Neutrophils % (A) 79.9 %; Platelet Count 167 X 10*3/uL (140-440); RBC 3.39 X 10*6/uL (4.40-5.60); RDW 15.3 % (11.5-14.5); WBC 8.23 X 10*3/uL (4.50-10.00)
[2023-08-04 09:23] LABS: ALT 6 U/L (10-49); AST 18 U/L (14-35); Albumin 3.2 g/dL (3.8-4.9); Albumin/Globulin Ratio 1.45 Ratio (1.60-3.17); Alkaline Phosphatase 60 U/L (41-126); BUN/Creat Ratio 9.78 Ratio (12.00-20.00); Blood Urea Nitrogen 17.6 mg/dL (9.0-27.0); Calcium 8.4 mg/dL (8.7-10.3); Carbon Dioxide 25.4 mmol/L (21.6-31.8); Chloride 103 mmol/L (96-109); Globulin 2.2 g/dL (1.6-3.3); Glucose 109 mg/dL (70-110); Magnesium 1.8 mg/dL (1.5-2.4); Potassium 3.9 mmol/L (3.5-5.5); Sodium 138 mmol/L (135-145); Total Bilirubin 0.6 mg/dL (0.3-1.2); Total Protein 5.4 g/dL (6.2-8.2)
[2023-08-04 12:24] LABS: Glucose,Whole Blood 73 mg/dL (70-110)
--- NOTE | 2023-08-04 16:15 | XR ---
EXAMINATION TYPE: XR abdomen 2V DATE OF EXAM: 08/04/2023 CLINICAL HISTORY: Abdominal pain. TECHNIQUE: Supine and upright views of the abdomen are obtained. COMPARISON: Abdominal x-ray May 21, 2021. FINDINGS: Gas seen in nondistended stomach. Scattered gas seen in nondistended small and large bowel loops. Extensive small vessel arterial vascular calcification is redemonstrated. Overlying sternal w ires are again seen. No free air. Surgical clips projecting near the left hemidiaphragm are redemonst rated. Multilevel spurring in the spine is again seen. IMPRESSION: Overall nonobstructive bowel gas pattern.
--- NOTE | 2023-08-04 16:33 | P.PN ---
Progress Note - Text 67-year-old gentleman patient had infected left heel wound patient had a debridement done cultures came back as a gram-negative bacilli we have changed the dressing today base of the wound some granulation tissue noted we placed Medihoney gel dressing applied patient taught the procedure well we will continue with daily change of dressing patient is an IV antibiotic under care of infectious disease
[2023-08-04] MEDS: CEFEPIME 2 GM in SODIUM CHLORIDE 0.9% 100 ML IVPB SCH (16:58)
[2023-08-04 17:51] LABS: Glucose,Whole Blood 122 mg/dL (70-110)
[2023-08-04 20:24] LABS: Glucose,Whole Blood 207 mg/dL (70-110)
--- NOTE | 2023-08-05 05:35 | P.PN ---
Subjective Progress Note Date: 08/04/23 67-year-old male presents to the emergency department for evaluation of generalized weakness. Patient states that he was just discharged from [facility] today. He states that he got home and was unable to ambulate. He is concerned because he is unable to take care of himself. He does report that she is supposed to be getting a wheelchair and other devices but he would not receive them until Wednesday. He states that he was not able to ambulate while in [facility]. He was there for rehab for a foot infection. He was receiving IV antibiotics for approximately 1 month. Blood work completed in ED reveals a WBC of 8.7, hemoglobin of 10.8 and platelet count of 242, sodium 134, potassium 5.2, BUNs/creatinine of 27/1.96 which is trended up to 1.4-1.5 baseline and blood glucose of 123 UA is unremarkable except positive for large amount of leukocyte esterase 08/02/2023 Patient is seen in follow-up this morning currently lying in the bed with infectious disease following maintained on IV antibiotics. Left wound of the heel with some eschar noted will consult vascular surgery Dr. Galindo for possible bedside debridement with deep tissue cultures. Patient has been in and out of the hospital multiple times for infection and cellulitis. Patient resides at an [facility] and plans to return there. Patient currently afebrile with no reports of chest pain or shortness of breath. Patient reports not watching her diet with occasional nausea and no vomiting. 08/03/2023 Patient seen in follow-up today maintained on daptomycin with infectious disease following. Preliminary culture showing gram-negative bacilli and patient is status post bedside surgical debridement with vascular surgery. Will continue with local wound care and offloading of these lower extremities. PT/OT therapy to evaluate as patient will most likely need continued rehab for strength and mobility. Patient with significant weakness was discharged from [facility] went home for 1 day and had to return to the hospital with inability to ambulate and care for himself. Patient is afebrile with no reports of chest pain or worsening shortness of breath. Wean FiO2 as tolerated. Patient reports not much of an appetite. Will consult dietary for input and recommendations. 08/04/2023 Patient is seen in follow-up today with vascular surgery and infectious disease following. Cultures preliminary showing gram-negative bacilli and awaiting finalized cultures to determine discharge antibiotics. Patient has had previous intravenous antibiotics in the outpatient setting. Patient will likely need a PICC line on discharge with continued IV antibiotic therapy. Per social work is following arranging discharge planning needs, patient has no time left available at [facility] and will be going home with home care. Continue local wound care and vascular surgery following and will be changing dressings today on the left heel. Review of systems: Constitutional: No reports of fatigue, fever, or chills Cardiovascular: No reports of chest pain or palpitations Respiratory: No reports of worsening shortness of breath, occasional cough GI: reports of nausea, no vomiting, or diarrhea reports not much of an appetite : No reports of dysuria or retention Neurovascular: reports of generalized weakness All medications have been reviewed Physical exam: Gen: This is a 67-year-old male who is awake, alert and oriented x 3, well- developed, elderly appearing, ill-appearing, obese HEENT: Head is atraumatic, normocephalic. Pupils equal, round. Sclerae is anicteric. NECK: Supple. No JVD. No lymphadenopathy. No thyromegaly. LUNGS: Diminished breath sounds bilaterally otherwise clear to auscultation. No wheezes or rhonchi. No intercostal retractions. HEART: S1, S2 are muffled ABDOMEN: Soft. Bowel sounds are present. No masses. No tenderness. EXTREMITIES: No pedal edema. No calf tenderness. Left heel surgical dressing is dry and intact NEUROLOGICAL: Patient is awake, alert and oriented x3. Cranial nerves 2 through 12 are grossly intact. Diffusely weak Assessment: -Acute on chronic kidney disease stage III -Left heel unstageable ulcer/diabetic foot infection with redness and concerns for surrounding cellulitis, present on admission, previous cultures were MRSA status post bedside surgical debridement -Weakness/debility; patient was discharged from skilled rehab 24 hours prior to presenting to ED; we will consult PT/OT, patient will likely need rehab on discharge for continued strengthening -Possible UTI; UA is positive for large amount of leukocyte esterase; no WBCs or bacteria; white blood count is normal; likely asymptomatic bacteriuria -Hypertension -Hyperlipidemia -Diabetes mellitus with long-term insulin use; patient takes insulin glargine 30 units subcu nightly with the lispro with each meal; we will continue with insulin glargine 30 units -Hypothyroidism -Paroxysmal atrial fibrillation; currently rate controlled -CAD, status post CABG and heart catheterization with stent placement -Chronic back pain -DVT prophylaxis; SCDs/subcu heparin -GI prophylaxis -full code Plan: Patient was recently discharged from ECF and came back in shortly thereafter for concerns of left lower extremity surrounding cellulitis of an unstageable heel wound with eschar noted. Vascular surgery Dr. Galindo evaluated and is status post debridement with deep tissue cultures. Preliminary culture showing gram- negative bacilli and awaiting finalized cultures. Infectious diseases following and will continue on daptomycin. Patient will likely need a PICC line on discharge for continued IV antibiotic therapy. PICC line is ordered Consult to PT/OT therapy as patient is significantly weak and was recently discharged from ECF although unable to take care of himself and unable to ambulate. Social work following and patient is out of days for ECF and will be returning home with home care. Patient will be significantly high risk for readmissions as he is debilitated and unable to care for his wounds and generalized care on his own. Continue local wound care per vascular and infectious disease Recommend aspiration precautions and head of the bed elevated 30 to 45 degrees and supervision with meals. Patient without much of an appetite will consult dietary Will follow-up on repeat labs and monitor kidney functions. Replace electrolytes per protocol Continue monitoring Accu-Cheks before meals and at bedtime and will continue with sliding scale and adjust insulins accordingly Due to multiple complex medical issues, prognosis is guarded Case management/social work regarding discharge planning. Plan is for home with home care and will likely need IV antibiotics and extensive wound care and wound care clinic follow-up. The impression and plan of care has been dictated by Elizabet Rodriguez, Nurse Practitioner as directed. Dr. Kinsey MD I have performed a history and examination and MDM of this patient, discussed the same with the dictator, and agree with the dictator's assessment and plan as written ,documented as a scribe. Based on total visit time, I have performed more than 50% of the visit. Objective - Vital Signs Vital signs: Vital Signs Temp 97.5 F L 08/04/23 07:20 Pulse 73 08/04/23 07:20 Resp 16 08/04/23 07:20 BP 158/82 08/04/23 07:20 Pulse Ox 99 08/04/23 09:38 FiO2 Intake & Output 0608/04/23 08/04/23 18:59 06:59 18:59 Intake Total 0 Balance 0 Intake: Oral 0 Other: Voiding Method Bedside Commode Bedside Commode Diaper Diaper Incontinent Incontinent # Voids 1 # Bowel Movements 1 - Labs CBC & Chem 7: 08/04/23 06:02 08/04/23 06:02 Labs: Abnormal Lab Results - Last 24 Hours (Table) 08/03/23 08/03/23 08/03/23 Range/Units 11:41 17:26 20:16 RBC (4.40-5.60) X 10*6/uL Hgb (13.0-17.0) g/dL Hct (39.6-50.0) % MCHC (32.0-37.0) g/dL RDW (11.5-14.5) % Lymphocytes # (0.90-5.00) X 10*3/uL Creatinine (0.6-1.5) mg/dL Est GFR (CKD-EPI) (>=60) BUN/Creatinine Ratio (12.00-20.00) Ratio POC Glucose (mg/dL) 173 H 256 H 313 H (70-110) mg/dL Calcium (8.7-10.3) mg/dL ALT (10-49) U/L Total Protein (6.2-8.2) g/dL Albumin (3.8-4.9) g/dL Albumin/Globulin Ratio (1.60-3.17) Ratio 08/04/23 08/04/23 08/04/23 Range/Units 05:54 06:02 06:02 RBC 3.39 L (4.40-5.60) X 10*6/uL Hgb 9.4 L (13.0-17.0) g/dL Hct 31.3 L (39.6-50.0) % MCHC 30.0 L (32.0-37.0) g/dL RDW 15.3 H (11.5-14.5) % Lymphocytes # 0.61 L (0.90-5.00) X 10*3/uL Creatinine 1.8 H (0.6-1.5) mg/dL Est GFR (CKD-EPI) 41 L (>=60) BUN/Creatinine Ratio 9.78 L (12.00-20.00) Ratio POC Glucose (mg/dL) 119 H (70-110) mg/dL Calcium 8.4 L (8.7-10.3) mg/dL ALT 6 L (10-49) U/L Total Protein 5.4 L (6.2-8.2) g/dL Albumin 3.2 L (3.8-4.9) g/dL Albumin/Globulin Ratio 1.45 L (1.60-3.17) Ratio Microbiology - Last 24 Hours (Table) 08/02/23 16:17 Gram Stain - Preliminary Foot - Left Tissue Culture - Preliminary Gram Neg Bacilli
[2023-08-05 05:51] LABS: Glucose,Whole Blood 58 mg/dL (70-110)
[2023-08-05 06:23] LABS: Glucose,Whole Blood 89 mg/dL (70-110)
--- NOTE | 2023-08-05 08:22 | P.PN ---
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 Patient has been evaluated by vascular surgery and did have debridement of his wound to the left heel cultures obtained did not mention any extension down to the wound. On today's evaluation that is 08/04/2023, Patient is afebrile patient is currently on 1 L nasal cannula oxygen and denies having any shortness of breath, the patient denies any chest pain or cough, the patient denies any nausea vomiting did not have any abdominal pain and no diarrhea patient white count is 8.23, creatinine is 1.8 local culture not growing gram- negative bacilli Objective - Vital Signs Vital signs: Vital Signs Temp 97.5 F L 08/04/23 07:20 Pulse 73 08/04/23 07:20 Resp 16 08/04/23 07:20 BP 158/82 08/04/23 07:20 Pulse Ox 99 08/04/23 09:38 FiO2 Intake & Output 08/03/23 08/04/23 08/04/23 18:59 06:59 18:59 Intake Total 0 Balance 0 Intake: Oral 0 Other: Voiding Method Bedside Commode Bedside Commode Diaper Diaper Incontinent Incontinent # Voids 1 # Bowel Movements 1 - Exam GENERAL DESCRIPTION: An elderly male lying in bed in no distress RESPIRATORY SYSTEM: Unlabored breathing , decreased breath sounds at bases HEART: S1 S2 regular rate and rhythm , ABDOMEN: Soft , no tenderness EXTREMITIES: Left heel wound is currently dressed, no drainage Exam completed with the help of DRAPERY WORKER - Labs CBC & Chem 7: 08/04/23 06:02 08/04/23 06:02 Labs: Abnormal Lab Results - Last 24 Hours (Table) 08/03/23 08/03/23 08/04/23 Range/Units 17:26 20:16 05:54 RBC (4.40-5.60) X 10*6/uL Hgb (13.0-17.0) g/dL Hct (39.6-50.0) % MCHC (32.0-37.0) g/dL RDW (11.5-14.5) % Lymphocytes # (0.90-5.00) X 10*3/uL Creatinine (0.6-1.5) mg/dL Est GFR (CKD-EPI) (>=60) BUN/Creatinine Ratio (12.00-20.00) Ratio POC Glucose (mg/dL) 256 H 313 H 119 H (70-110) mg/dL Calcium (8.7-10.3) mg/dL ALT (10-49) U/L Total Protein (6.2-8.2) g/dL Albumin (3.8-4.9) g/dL Albumin/Globulin Ratio (1.60-3.17) Ratio 08/04/23 08/04/23 Range/Units 06:02 06:02 RBC 3.39 L (4.40-5.60) X 10*6/uL Hgb 9.4 L (13.0-17.0) g/dL Hct 31.3 L (39.6-50.0) % MCHC 30.0 L (32.0-37.0) g/dL RDW 15.3 H (11.5-14.5) % Lymphocytes # 0.61 L (0.90-5.00) X 10*3/uL Creatinine 1.8 H (0.6-1.5) mg/dL Est GFR (CKD-EPI) 41 L (>=60) BUN/Creatinine Ratio 9.78 L (12.00-20.00) Ratio POC Glucose (mg/dL) (70-110) mg/dL Calcium 8.4 L (8.7-10.3) mg/dL ALT 6 L (10-49) U/L Total Protein 5.4 L (6.2-8.2) g/dL Albumin 3.2 L (3.8-4.9) g/dL Albumin/Globulin Ratio 1.45 L (1.60-3.17) Ratio Microbiology - Last 24 Hours (Table) 08/02/23 16:17 Gram Stain - Preliminary Foot - Left Tissue Culture - Preliminary Gram Neg Bacilli Assessment and Plan (1) Cellulitis of left foot Current Visit: No Status: Acute Code(s): L03.116 - CELLULITIS OF LEFT LOWER LIMB SNOMED Code(s): 04120394826583126 (2) Diabetic foot ulcer Current Visit: No Status: Acute Code(s): E11.621 - TYPE 2 DIABETES MELLITUS WITH FOOT ULCER; L97.509 - NON-PRESSURE CHRONIC ULCER OTH PRT UNSP FOOT W UNSP SEVERITY SNOMED Code(s): 379974090 (3) Penicillin allergy Current Visit: No Status: Acute Code(s): Z88.0 - ALLERGY STATUS TO PENICILLIN SNOMED Code(s): 42044771 Plan: This is a telehealth visit 1patient with a left heel unstageable pressure ulcer/diabetic foot ulcer with secondary infection and concern for secondary cellulitis as there was erythema around the area of the eschar we will need to cover for the gram-positive skin jaycee to be the likely pathogen with the last culture positive for MRSA 2-penicillin allergy that will limit the number of antibiotics safe to use 3-patient did have renal insufficiency high risk of nephrotoxicity from vancomycin 4-patient has been evaluated by vascular surgery and status post debridement of the wound and deep culture which are currently growing gram-negative bacilli 5-we will discontinue daptomycin and start the patient on cefepime while waiting for the ID and sensitivity of the gram-negative bacilli PICC line has been ordered and the patient seem to be hard stick for any IV access as reported by the nursing staff Dictation was produced using [employer] dictation software. please excuse any grammatical, word or spelling errors. Time with Patient: Less than 30
--- NOTE | 2023-08-05 11:10 | CDI ---
Documentation Clarification Form Date: 08/05/2023 07:14:37 AM From: Guerline Humphries RN CCDS Phone: [phone] Admit Date: 07/31/2023 08:09:00 PM Patient Name: James Clark Visit Number: [id number] Discharge Date: ATTENTION: The Clinical Documentation Specialists (CDI) and [facility] Coding Staff appreciate your assistance in clarifying documentation. Please respond to the clarification below the line at the bottom and electronically sign. The CDI & [facility] Coding staff will review the response and follow-up if needed. Please note: Queries are made part of the Legal Health Record. If you have any questions, please contact the author of this message via ITS. Dr. Elizabet Rodriguez Conflicting documentation has been found in the medical record. As attending physician, please provide clarification. Possible UTI, Medicine note, 08/03. Likely Asymptomatic bacteriuria, Medicine note, 08/03. History/Risk Factors: 67-year-old male was discharged from rehabilitation after treatment for IV antibiotics. Patient went to ED after discharge unable to care for himself while at home and unable to ambulate with generalized weakness. Medical History: DM, Left foot ulcer infection, CKD III and HTN. 07/31, HP. Clinical Indicators: VSS, 11/29: B/P 174/119, HR 98, Temp 98.0F oral, RR 16, SpO2 93% RA Wbc, 11/29: 8.7 UA, 07/30: Protein 2+, ketones 1+, Leukocyte esterase Large, Wbc 81, Bacteria Rare, Mucus Rare, Urine yeast (budding) occasional Urine culture, 07/31: No growth after 18 hours Medicine, 08/03: -Possible UTI; UA is positive for large amount of leukocyte esterase; no WBCs or bacteria; white blood count is normal; likely asymptomatic bacteriuria. ID Consult 08/01: We will consult vascular surgery for debridement of the wound and deep culture. We will start the patient on Daptomycin pending workup completion. We will follow on clinical condition and cultures to further adjust medication if needed. Treatment: Urinalysis and Urine culture Please clarify which diagnosis is most appropriate: [ ] UTI poa as evidenced by ( additional clinical support ) [ x ] Asymptomatic bacteriuria [ ] Other (please specify) [ ] Unable to determine (Template Last Revised: April 2020) MTDD
--- NOTE | 2023-08-05 11:39 | XR ---
EXAMINATION TYPE: XR chest 1V DATE OF EXAM: 08/05/2023 HISTORY: Shortness of breath. COMPARISON: 07/31/2023 TECHNIQUE: Single view of the chest is submitted. FINDINGS: Demonstrated are scattered senescent parenchymal change. There is no evidence for focal infiltrate. Right-sided PICC line is appropriately placed. There is no evidence for pneumothorax. Continued cardiomegaly with pulmonary venous congestion. The heart is stable. Hilar and mediastinal structures are within normal limits. Degenerative changes are seen of the dorsal spine. IMPRESSION: 1. Right-sided PICC line is appropriately placed. There is no evidence for pneumothorax. Continued c ardiomegaly with pulmonary venous congestion.
[2023-08-05 12:22] LABS: Glucose,Whole Blood 57 mg/dL (70-110)
[2023-08-05 12:39] LABS: Glucose,Whole Blood 59 mg/dL (70-110)
[2023-08-05 12:57] LABS: Glucose,Whole Blood 59 mg/dL (70-110)
[2023-08-05] MEDS: DEXTROSE 50% SYRINGE 50 ML IVP STA (13:06)
[2023-08-05 13:26] LABS: Glucose,Whole Blood 188 mg/dL (70-110)
--- NOTE | 2023-08-05 14:47 | P.NPCON ---
History of Present Illness - Reason for Consult chronic renal failure - History of Present Illness patient is a 67-year-old male with history of type 2 diabetes, hypertension, diabetic foot ulcer and osteomyelitis with cultures positive for MRSA, status post treatment with vancomycin as outpatient prior to this admission. patient has had debridement of the left heel wound and needs long-term antibiotics. Serum creatinine was elevated at 1.8 and therefore nephrology consult has been obtained. Review of labs show serum creatinine at about 1.6-1.8 mg/dL since May 2022. Patient does not follow with nephrology as outpatient. currently maintained on IV fluids. Patient is also maintained on angiotensin receptor blockers. He states he has been voiding. Review of Systems as per HPI. Past Medical History Past Medical History: Diabetes Mellitus, Hyperlipidemia, Hypertension, Thyroid Disorder History of Any Multi-Drug Resistant Organisms: None Reported Date of last positivie culture/infection: 04/21/23 MDRO Source:: Left Foot Past Surgical History: Coronary Bypass/CABG, Heart Catheterization With Stent Additional Past Surgical History / Comment(s): left great and second toe removal. bilat carpal tunnel. neck fusion 5-6-7. triple bypass Past Anesthesia/Blood Transfusion Reactions: No Reported Reaction Additional Past Anesthesia/Blood Transfusion Reaction / Comment(s): no blood transfusion Date of Last Stent Placement:: 02/2002 Past Psychological History: No Psychological Hx Reported Smoking Status: Former smoker Past Alcohol Use History: None Reported Additional Past Alcohol Use History / Comment(s): quit smoking at 38 Past Drug Use History: None Reported - Past Family History Father History Unknown: Yes Mother History Unknown: Yes Medications and Allergies Home Medications Medication Instructions Recorded Confirmed Type Ferrous Sulfate [Iron (65 MG 325 mg PO DAILY 03/04/21 08/01/23 History Elemental)] Hydroxychloroquine Sulfate 200 mg PO BID 03/04/21 08/01/23 History [Plaquenil] Levothyroxine Sodium [Synthroid] 100 mcg PO DAILY@0600 03/04/21 08/01/23 History Famotidine [Pepcid] 20 mg PO BID #60 tablet 03/12/21 08/01/23 Rx Losartan [Cozaar] 25 mg PO DAILY #30 tab 03/13/21 08/01/23 Rx Meclizine [Antivert] 12.5 mg PO TID PRN 30 Days #90 03/13/21 08/01/23 Rx tablet Balsalazide Disodium [Colazal] 2,250 mg PO BID 03/17/23 08/01/23 History Loratadine [Claritin] 10 mg PO DAILY 03/17/23 08/01/23 History Apixaban [Eliquis] 5 mg PO BID #60 tab 06/11/23 08/01/23 Rx carvediloL [Coreg] 6.25 mg PO BID 06/11/23 08/01/23 History Amiodarone [Cordarone] 200 mg PO BID tab 06/18/23 08/01/23 Rx Atorvastatin [Lipitor] 10 mg PO HS 08/01/23 08/01/23 History Gabapentin [Neurontin] 300 mg PO Q8H 08/01/23 08/01/23 History HYDROcodone/APAP 5-325MG [[place] 1 tab PO Q6H PRN 08/01/23 08/01/23 History 5-325] Insulin Glargine-Yfgn [Semglee 30 unit SQ HS 08/01/23 08/01/23 History (Yfgn) Pen] Insulin Lispro See Protocol SQ TID-W/MEALS 08/01/23 08/01/23 History Melatonin 10 mg PO HS 08/01/23 08/01/23 History Ondansetron [Zofran] 4 mg PO TID PRN 08/01/23 08/01/23 History Allergies Allergy/AdvReac Type Severity Reaction Status Date / Time Penicillins Allergy Unknown Verified 07/31/23 15:01 Childhood Physical Exam Vitals: Vital Signs Temp Pulse Pulse Resp BP BP Pulse Ox 08/05/23 14:22 97.5 F L 77 16 176/83 95 08/05/23 10:51 74 174/95 95 08/05/23 09:41 16 08/05/23 09:20 98 08/05/23 09:00 94 L 08/05/23 07:00 98.3 F 67 16 180/85 97 08/05/23 02:28 97.9 F 72 16 176/89 98 08/04/23 20:00 73 89 08/04/23 19:16 98.0 F 89 16 169/83 98 Intake and Output 08/04/23 08/05/23 08/05/23 22:59 06:59 14:59 Intake Total 118 240 Output Total 300 Balance 118 -300 240 Intake: Oral 118 240 Output: Urine 300 Other: Voiding Method Bedside Commode Diaper Incontinent # Voids 2 1 # Bowel Movements 1 patient is awake, comfortable, no acute distress. Examination of the heart S1 and S2 Examination of the lungs bilateral breath sounds are heard Abdomen is soft nontender Examination of the lower extremities shows left leg is wrapped. no significant edema noted. Chronic skin changes noted bilaterally. 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 Chronic kidney disease NKF stage IV with baseline creatinine around 1.8-2 mg/dL. Etiology is diabetic kidney disease. ultrasound of the kidneys in May 2023 did not show any obstructive uropathy. A 4 mm nonobstructive right renal stone was noted. 2. Left heel nonhealing ulcer with osteomyelitis, status post debridement and maintained on long-term antibiotics. 3. Asymptomatic pyuria 4. Paroxysmal A. fib 5. Coronary artery disease with history of coronary artery bypass surgery and coronary stent placement. Plan: okay to proceed with PICC line. Patient will need outpatient follow-up with nephrology for chronic kidney disease. Into new with angiotensin receptor blockers. Increase dose of Coreg as blood pressure remains elevated. Consider decreasing dose of plaquenil to 100 mg daily given the underlying infection. thank you for the consultation. We will continue to follow the patient with you during his hospitalization.
[2023-08-05] MEDS ORDERED: DEXTROSE 50% SYRINGE 50 ML IVP PRN ×2 (15:32)
--- NOTE | 2023-08-05 17:32 | P.PCN ---
Description of Procedure: 67-year-old gentleman history of diabetes patient had a infected callus left heel we did do extensive debridement patient is IV antibiotic under care of infectious disease we have been changing dressing with Medihoney gel today will change the dressing some part of the wound was granulating we will continue with Medihoney gel next dressing be changed on Wednesday patient is forefoot offloading shoe
[2023-08-05 17:38] LABS: Glucose,Whole Blood 162 mg/dL (70-110)
[2023-08-05] MEDS: INSULIN ASPART (NovoLOG) 100 UNIT/ML VIAL SQ SCH (17:53)
[2023-08-05 20:15] LABS: Glucose,Whole Blood 144 mg/dL (70-110)
[2023-08-05] MEDS: carvediloL 6.25 MG TAB PO SCH (20:31)
[2023-08-05] MEDS: GABAPENTIN 300 MG CAP PO SCH (20:31)
[2023-08-05] MEDS ORDERED: INSULIN DETEMIR (LEVEMIR) 100 UNIT/ML SYR SQ SCH (21:00)
[2023-08-06 05:18] LABS: Glucose,Whole Blood 150 mg/dL (70-110)
--- NOTE | 2023-08-06 06:13 | P.PN ---
Subjective Progress Note Date: 08/05/23 Principal diagnosis: Reason for follow-up is left heel infected wound Patient is a 61-year-old male with a past medical history significant for diabetes mellitus hypertension hyperlipidemia hypothyroidism patient did have a history of diabetic foot ulcer osteomyelitis with recent culture positive for MRSA back in May 2023 that has been treated with a course of IV v ancomycin, presented back to the hospital with weakness and health care attorney of himself. Patient has been evaluated by vascular surgery and did have debridement of his wound to the left heel cultures obtained did not mention any extension down to the wound. On today's evaluation that is 08/05/2023, patient has been afebrile, patient is breathing comfortably and is currently on room air, patient denies having any significant cough no chest pain shortness of breath, patient denies nausea vomiting or diarrhea and no abdominal pain or any worsening pain to the left heel wound area. Pain today patient culture currently growing Proteus Christina Staphylococcus epidermidi Objective - Vital Signs Vital signs: Vital Signs Temp 98.3 F 08/05/23 07:00 Pulse 67 08/05/23 07:00 Resp 16 08/05/23 07:00 BP 180/85 08/05/23 07:00 Pulse Ox 97 08/05/23 07:00 FiO2 Intake & Output 08/04/23 08/05/23 08/05/23 18:59 06:59 18:59 Intake Total 236 Output Total 300 Balance 236 -300 Weight 99.79 kg Intake: Oral 236 Output: Urine 300 Other: # Voids 2 1 # Bowel Movements 1 - Exam GENERAL DESCRIPTION: An elderly male lying in bed in no distress RESPIRATORY SYSTEM: Unlabored breathing , decreased breath sounds at bases HEART: S1 S2 regular rate and rhythm , ABDOMEN: Soft , no tenderness EXTREMITIES: Left heel wound is currently dressed, no drainage Exam completed with the help of G[employer]Y CHAIN DIRECTOR - Labs CBC & Chem 7: 08/04/23 06:02 08/04/23 06:02 Labs: Abnormal Lab Results - Last 24 Hours (Table) 08/04/23 08/04/23 08/04/23 Range/Units 06:02 06:02 17:49 RBC 3.39 L (4.40-5.60) X 10*6/uL Hgb 9.4 L (13.0-17.0) g/dL Hct 31.3 L (39.6-50.0) % MCHC 30.0 L (32.0-37.0) g/dL RDW 15.3 H (11.5-14.5) % Lymphocytes # 0.61 L (0.90-5.00) X 10*3/uL Creatinine 1.8 H (0.6-1.5) mg/dL Est GFR (CKD-EPI) 41 L (>=60) BUN/Creatinine Ratio 9.78 L (12.00-20.00) Ratio POC Glucose (mg/dL) 122 H (70-110) mg/dL Calcium 8.4 L (8.7-10.3) mg/dL ALT 6 L (10-49) U/L Total Protein 5.4 L (6.2-8.2) g/dL Albumin 3.2 L (3.8-4.9) g/dL Albumin/Globulin Ratio 1.45 L (1.60-3.17) Ratio 08/04/23 08/05/23 Range/Units 20:23 05:50 RBC (4.40-5.60) X 10*6/uL Hgb (13.0-17.0) g/dL Hct (39.6-50.0) % MCHC (32.0-37.0) g/dL RDW (11.5-14.5) % Lymphocytes # (0.90-5.00) X 10*3/uL Creatinine (0.6-1.5) mg/dL Est GFR (CKD-EPI) (>=60) BUN/Creatinine Ratio (12.00-20.00) Ratio POC Glucose (mg/dL) 207 H 58 L (70-110) mg/dL Calcium (8.7-10.3) mg/dL ALT (10-49) U/L Total Protein (6.2-8.2) g/dL Albumin (3.8-4.9) g/dL Albumin/Globulin Ratio (1.60-3.17) Ratio Microbiology - Last 24 Hours (Table) 08/02/23 16:17 Gram Stain - Final Foot - Left Tissue Culture - Final Proteus mirabilis Christina parapsilosis group Staphylococcus epidermidis 08/02/23 16:17 Anaerobic Culture - Final Foot - Left Assessment and Plan (1) Cellulitis of left foot Current Visit: No Status: Acute Code(s): L03.116 - CELLULITIS OF LEFT LOWER LIMB SNOMED Code(s): 86160112769467552 (2) Diabetic foot ulcer Current Visit: No Status: Acute Code(s): E11.621 - TYPE 2 DIABETES MELLITUS WITH FOOT ULCER; L97.509 - NON-PRESSURE CHRONIC ULCER OTH PRT UNSP FOOT W UNSP SEVERITY SNOMED Code(s): 278987722 (3) Penicillin allergy Current Visit: No Status: Acute Code(s): Z88.0 - ALLERGY STATUS TO PENICILLIN SNOMED Code(s): 49007417 Plan: This is a telehealth visit 1patient with a left heel unstageable pressure ulcer/diabetic foot ulcer with secondary infection and concern for secondary cellulitis as there was erythema around the area of the eschar we will need to cover for the gram-positive skin jaycee to be the likely pathogen with the last culture positive for MRSA 2-penicillin allergy that will limit the number of antibiotics safe to use 3-patient did have renal insufficiency high risk of nephrotoxicity from vancomycin 4-patient has been evaluated by vascular surgery and status post debridement of the wound and deep culture which are currently growing gram-negative bacilli 5-we will continue cefepime , however patient be able to finish therapy with the Rocephin 2 g daily Christina and staph epi more likely skin jaycee and does not need any treatment plan for at least 3 to 4 weeks of IV antibiotics and close outpatient follow-up on discharge Dictation was produced using [employer] software. please excuse any grammatical, word or spelling errors.
--- NOTE | 2023-08-06 06:19 | P.PN ---
Subjective Progress Note Date: 08/05/23 67-year-old male presents to the emergency department for evaluation of generalized weakness. Patient states that he was just discharged from [facility] today. He states that he got home and was unable to ambulate. He is concerned because he is unable to take care of himself. He does report that she is supposed to be getting a wheelchair and other devices but he would not receive them until Wednesday. He states that he was not able to ambulate while in [facility]. He was there for rehab for a foot infection. He was receiving IV antibiotics for approximately 1 month. Blood work completed in ED reveals a WBC of 8.7, hemoglobin of 10.8 and platelet count of 242, sodium 134, potassium 5.2, BUNs/creatinine of 27/1.96 which is trended up to 1.4-1.5 baseline and blood glucose of 123 UA is unremarkable except positive for large amount of leukocyte esterase 08/02/2023 Patient is seen in follow-up this morning currently lying in the bed with infectious disease following maintained on IV antibiotics. Left wound of the heel with some eschar noted will consult vascular surgery Dr. Galindo for possible bedside debridement with deep tissue cultures. Patient has been in and out of the hospital multiple times for infection and cellulitis. Patient resides at an [facility] and plans to return there. Patient currently afebrile with no reports of chest pain or shortness of breath. Patient reports not watching her diet with occasional nausea and no vomiting. 08/03/2023 Patient seen in follow-up today maintained on daptomycin with infectious disease following. Preliminary culture showing gram-negative bacilli and patient is status post bedside surgical debridement with vascular surgery. Will continue with local wound care and offloading of these lower extremities. PT/OT therapy to evaluate as patient will most likely need continued rehab for strength and mobility. Patient with significant weakness was discharged from [facility] went home for 1 day and had to return to the hospital with inability to ambulate and care for himself. Patient is afebrile with no reports of chest pain or worsening shortness of breath. Wean FiO2 as tolerated. Patient reports not much of an appetite. Will consult dietary for input and recommendations. 08/04/2023 Patient is seen in follow-up today with vascular surgery and infectious disease following. Cultures preliminary showing gram-negative bacilli and awaiting finalized cultures to determine discharge antibiotics. Patient has had previous intravenous antibiotics in the outpatient setting. Patient will likely need a PICC line on discharge with continued IV antibiotic therapy. Per social work is following arranging discharge planning needs, patient has no time left available at [facility] and will be going home with home care. Continue local wound care and vascular surgery following and will be changing dressings today on the left heel. 08/05/2023 Patient seen and evaluated in follow-up with multiple medical consultations following. Patient is maintained on antibiotics and will likely receive a PICC line today after nephrology clearance his kidney functions are mildly elevated. Patient to continue with wound care and elevating lower extremity while at rest. Dressing changed by vascular surgery today and will need follow-up in the clinic. Patient was tentatively scheduled outpatient for [facility] with cardioversion for history of atrial fibrillation and will consult cardiology Dr. Chávez for evaluation. Patient is afebrile with no reports of chest pain or shortness of breath. Patient is maintained on 2 L via nasal cannula and does not wear oxygen outpatient. Discussed with patient along with nursing staff about weaning FiO2 as tolerated. Recommend PT/OT therapy daily. Social work is following as patient apparently has no further days available at [facility] although is significantly weak has had multiple prolonged hospitalizations and appears to be unable to care for himself. Social work also looking into as patient reports Medicaid was applied for. Patient without much of an appetite have consulted dietary. Encouraged oral intake and will continue to monitor sugars closely. Blood sugars have been on the lower side. Review of systems: Constitutional: No reports of fatigue, fever, or chills Cardiovascular: No reports of chest pain or palpitations Respiratory: No reports of worsening shortness of breath, occasional cough GI: reports of nausea, no vomiting, or diarrhea reports not much of an appetite : No reports of dysuria or retention Neurovascular: reports of generalized weakness All medications have been reviewed Physical exam: Gen: This is a 67-year-old male who is awake, alert and oriented x 3, well-developed, elderly appearing, ill-appearing, obese HEENT: Head is atraumatic, normocephalic. Pupils equal, round. Sclerae is anicteric. NECK: Supple. No JVD. No lymphadenopathy. No thyromegaly. LUNGS: Diminished breath sounds bilaterally otherwise clear to auscultation. No wheezes or rhonchi. No intercostal retractions. HEART: S1, S2 are muffled ABDOMEN: Soft. Bowel sounds are present. No masses. No tenderness. EXTREMITIES: No pedal edema. No calf tenderness. Left heel surgical dressing is dry and intact NEUROLOGICAL: Patient is awake, alert and oriented x3. Cranial nerves 2 through 12 are grossly intact. Diffusely weak Assessment: -Acute on chronic kidney disease stage III -Left heel unstageable ulcer/diabetic foot infection with redness and concerns for surrounding cellulitis, present on admission, previous cultures were MRSA status post bedside surgical debridement -Weakness/debility; patient was discharged from skilled rehab 24 hours prior to presenting to ED; we will consult PT/OT, patient will likely need rehab on discharge for continued strengthening -Possible UTI; UA is positive for large amount of leukocyte esterase; no WBCs or bacteria; white blood count is normal; well-developed, likely asymptomatic bacteriuria -Hypertension -Hyperlipidemia -Diabetes mellitus with long-term insulin use; uncontrolled with hypoglycemia -Hypothyroidism -Paroxysmal atrial fibrillation; currently rate controlled -CAD, status post CABG and heart catheterization with stent placement -Chronic back pain -DVT prophylaxis; SCDs/subcu heparin -GI prophylaxis -full code Plan: Patient was recently discharged from ECF and came back in shortly thereafter for concerns of left lower extremity surrounding cellulitis of an unstageable heel wound with eschar noted. Vascular surgery Dr. Galindo evaluated and is status post debridement with deep tissue cultures. Infectious diseases following and will continue on daptomycin. Patient will receive a PICC line on discharge for continued IV antibiotic therapy. Okay per nephrology Consult to PT/OT therapy as patient is significantly weak and was recently discharged from ECF although unable to take care of himself and unable to ambulate. Social work following and patient is out of days for ECF and will be returning home with home care. Apparently Medicaid was applied for although unknown status at this time and social work is working on looking into this. Patient will be significantly high risk for readmissions as he is debilitated and unable to care for his wounds and generalized care on his own. Continue local wound care per vascular and infectious disease Recommend aspiration precautions and head of the bed elevated 30 to 45 degrees and supervision with meals. Patient without much of an appetite will consult dietary Will follow-up on repeat labs and monitor kidney functions. Replace electrolytes per protocol Patient was scheduled for [facility] with cardioversion from A-fib with Dr. Chávez will consult for evaluation. Continue monitoring Accu-Cheks before meals and at bedtime and will continue with sliding scale and adjust insulins accordingly. Will decrease the nighttime insulin long-acting slightly as patient's blood sugars have been dropping. Encouraged oral intake Due to multiple complex medical issues, prognosis is guarded Case management/social work regarding discharge planning. The impression and plan of care has been dictated by Elizabet Rodriguez, Nurse Practitioner as directed. Dr. Kinsey MD I have performed a history and examination and MDM of this patient, discussed the same with the dictator, and agree with the dictator's assessment and plan as written ,documented as a scribe. Based on total visit time, I have performed more than 50% of the visit. Objective - Vital Signs Vital signs: Vital Signs Temp 97.8 F 08/06/23 02:21 Pulse 79 08/06/23 02:21 Resp 17 08/06/23 02:21 BP 175/76 08/06/23 02:21 Pulse Ox 96 08/06/23 02:21 FiO2 Intake & Output 08/05/23 08/05/23 08/06/23 06:59 18:59 06:59 Intake Total 240 Output Total 300 3 Balance -300 240 -3 Intake: Oral 240 Output: Urine 300 2 Stool 1 Other: Voiding Method Bedside Commode Diaper Incontinent # Voids 2 1 2 # Bowel Movements 1 - Labs CBC & Chem 7: 08/04/23 06:02 08/04/23 06:02 Labs: Abnormal Lab Results - Last 24 Hours (Table) 08/05/23 08/05/23 08/05/23 Range/Units 12:20 12:38 12:54 POC Glucose (mg/dL) 57 L 59 L 59 L (70-110) mg/dL 08/05/23 08/05/23 08/05/23 Range/Units 13:25 17:36 20:14 POC Glucose (mg/dL) 188 H 162 H 144 H (70-110) mg/dL 08/06/23 Range/Units 05:16 POC Glucose (mg/dL) 150 H (70-110) mg/dL
[2023-08-06] MEDS: GABAPENTIN 100 MG CAP PO SCH (08:18)
[2023-08-06 08:23] LABS: Basophils # (A) 0.1 k/uL (0-0.2); Basophils % (A) 1 %; Eosinophils # (A) 0.6 k/uL (0-0.7); Eosinophils % (A) 8 %; HCT 32.6 % (39.0-53.0); HGB 9.8 gm/dL (13.0-17.5); Hypochromasia Marked; Lymphocytes # (A) 0.6 k/uL (1.0-4.8); Lymphocytes % (A) 7 %; MCH 28.1 pg (25.0-35.0); MCHC 29.9 g/dL (31.0-37.0); Mean Platelet Volume 8.2; Monocytes # (A) 0.6 k/uL (0-1.0); Monocytes % (A) 8 %; Neutrophils # (A) 5.7 k/uL (1.3-7.7); Neutrophils % (A) 74 %; Platelet Count 202 k/uL (150-450); RBC 3.47 m/uL (4.30-5.90); RDW 15.3 % (11.5-15.5); WBC 7.6 k/uL (3.8-10.6)
[2023-08-06 08:36] LABS: African American GFR (CKD) 50 (>60 ml/min/1.73 sqM); Anion Gap 6 mmol/L; Blood Urea Nitrogen 21 mg/dL (9-20); Calcium 8.3 mg/dL (8.4-10.2); Carbon Dioxide 27 mmol/L (22-30); Chloride 104 mmol/L (98-107); Glucose 135 mg/dL (74-99); Magnesium 1.8 mg/dL (1.6-2.3); Non-African American GFR(CKD) 43 (>60 ml/min/1.73 sqM); Sodium 137 mmol/L (137-145)
--- NOTE | 2023-08-06 09:44 | P.CRDCN ---
History of Present Illness History of present illness: This is Dr. Gould dictating a consult on this patient The patient was interviewed and examined IMPRESSION / ASSESSMENT: Persistent atrial flutter/atrial tachycardia on oral amiodarone 200 mg twice daily Resting heart rate less than 100 bpm, symptomatic with weakness Patient was already scheduled for an outpatient electrical cardioversion Multiple other problems including infected callus left heel status post extensive debridement by Dr. Galindo Type 2 diabetes, CAD coronary stenting coronary artery bypass grafting hypertension dyslipidemia Patient is being kept n.p.o. for ALEXIA and electrical cardioversion because he was already scheduled for one as an outpatient PLAN: Please contact Dr. Chávez If possible may proceed with ALEXIA and electrical cardioversion today If not then we will reschedule as an outpatient with Dr. Chávez Continue anticoagulation with Eliquis HPI Patient admitted with weakness. He was treated for cellulitis he underwent debridement of his left heel callus which was infected He has a PICC line now for IV antibiotics He has atrial flutter/atrial tachycardia with a controlled ventricular response and was loaded with amiodarone as an outpatient. An outpatient ALEXIA and cardioversion was planned. However in the interim he developed worsening cellulitis and required debridement Now being called for ALEXIA and cardioversion Continue amiodarone 200 mg p.o. twice daily as well as Eliquis 5 mg twice daily and carvedilol 12.5 mg twice daily as well as losartan ROS: No fever chills or rigors, no cough, phlegm or expectoration, no nausea, vomiting or diarrhea, no hematuria, dysuria, no musculoskeletal complaints, no strokes or seizures, no skin lesions. EXAMINATION: 176 over 83 mm of grade pulse rate in the 70s afebrile Breath sounds are reduced bilaterally heart sounds are irregular REVIEW OF LABS, ECG & MEDICAL DATA Sodium 137 potassium 4.0 Creatinine 1.62 Past Medical History Past Medical History: Diabetes Mellitus, Hyperlipidemia, Hypertension, Thyroid Disorder History of Any Multi-Drug Resistant Organisms: None Reported Date of last positivie culture/infection: 04/21/23 MDRO Source:: Left Foot Past Surgical History: Coronary Bypass/CABG, Heart Catheterization With Stent Additional Past Surgical History / Comment(s): left great and second toe removal. bilat carpal tunnel. neck fusion 5-6-7. triple bypass Past Anesthesia/Blood Transfusion Reactions: No Reported Reaction Additional Past Anesthesia/Blood Transfusion Reaction / Comment(s): no blood transfusion Date of Last Stent Placement:: 02/2002 Past Psychological History: No Psychological Hx Reported Smoking Status: Former smoker Past Alcohol Use History: None Reported Additional Past Alcohol Use History / Comment(s): quit smoking at 38 Past Drug Use History: None Reported - Past Family History Father History Unknown: Yes Mother History Unknown: Yes Medications and Allergies Home Medications Medication Instructions Recorded Confirmed Type Ferrous Sulfate [Iron (65 MG 325 mg PO DAILY 03/04/21 08/01/23 History Elemental)] Hydroxychloroquine Sulfate 200 mg PO BID 03/04/21 08/01/23 History [Plaquenil] Levothyroxine Sodium [Synthroid] 100 mcg PO DAILY@0600 03/04/21 08/01/23 History Famotidine [Pepcid] 20 mg PO BID #60 tablet 03/12/21 08/01/23 Rx Losartan [Cozaar] 25 mg PO DAILY #30 tab 03/13/21 08/01/23 Rx Meclizine [Antivert] 12.5 mg PO TID PRN 30 Days #90 03/13/21 08/01/23 Rx tablet Balsalazide Disodium [Colazal] 2,250 mg PO BID 03/17/23 08/01/23 History Loratadine [Claritin] 10 mg PO DAILY 03/17/23 08/01/23 History Apixaban [Eliquis] 5 mg PO BID #60 tab 06/11/23 08/01/23 Rx carvediloL [Coreg] 6.25 mg PO BID 06/11/23 08/01/23 History Amiodarone [Cordarone] 200 mg PO BID tab 06/18/23 08/01/23 Rx Atorvastatin [Lipitor] 10 mg PO HS 08/01/23 08/01/23 History Gabapentin [Neurontin] 300 mg PO Q8H 08/01/23 08/01/23 History HYDROcodone/APAP 5-325MG [[place] 1 tab PO Q6H PRN 08/01/23 08/01/23 History 5-325] Insulin Glargine-Yfgn [Semglee 30 unit SQ HS 08/01/23 08/01/23 History (Yfgn) Pen] Insulin Lispro See Protocol SQ TID-W/MEALS 06/09/24 06/09/24 History Melatonin 10 mg PO HS 08/01/23 08/01/23 History Ondansetron [Zofran] 4 mg PO TID PRN 08/01/23 08/01/23 History Allergies Allergy/AdvReac Type Severity Reaction Status Date / Time Penicillins Allergy Unknown Verified 07/31/23 15:01 Childhood Physical Exam Vitals: Vital Signs Temp Pulse Resp BP BP Pulse Ox 08/06/23 07:00 97.5 F L 81 20 187/79 95 08/06/23 02:21 97.8 F 79 17 175/76 96 08/05/23 20:00 17 08/05/23 19:25 98.2 F 99 17 161/56 96 08/05/23 14:22 97.5 F L 77 16 176/83 95 08/05/23 14:00 16 08/05/23 10:51 74 174/95 95 Intake and Output 08/05/23 08/06/23 08/06/23 22:59 06:59 14:59 Output Total 3 Balance -3 Output: Urine 2 Stool 1 Other: # Voids 1 2 # Bowel Movements 1 Results 08/06/23 07:38 08/06/23 07:38 CBC 08/06/23 Range/Units 07:38 WBC 7.6 (3.8-10.6) k/uL RBC 3.47 L (4.30-5.90) m/uL Hgb 9.8 L (13.0-17.5) gm/dL Hct 32.6 L (39.0-53.0) % Plt Count 202 (150-450) k/uL Comprehensive Metabolic Panel 08/06/23 Range/Units 07:38 Sodium 137 (137-145) mmol/L Potassium 4.0 (3.5-5.1) mmol/L Chloride 104 (98-107) mmol/L Carbon Dioxide 27 (22-30) mmol/L BUN 21 H (9-20) mg/dL Creatinine 1.62 H (0.66-1.25) mg/dL Glucose 135 H (74-99) mg/dL Calcium 8.3 L (8.4-10.2) mg/dL Current Medications Generic Name Dose Route Start Last Admin Trade Name Freq PRN Reason Stop Dose Admin Acetaminophen 650 mg 07/31/23 20:07 Acetaminophen Tab 325 Mg Tab PO Q6HR PRN Mild Pain or Fever > 100.5 Hydrocodone Bitart/Acetaminophen 1 each 08/01/23 13:45 08/05/23 09:53 Hydrocodone/Apap 5-325mg 1 Each Tab PO 1 each Q6H PRN Administration Pain Amiodarone HCl 200 mg 08/01/23 21:00 08/06/23 08:18 Amiodarone 200 Mg Tab PO 200 mg BID FELA Administration Apixaban 5 mg 08/01/23 21:00 08/06/23 08:19 Apixaban 5 Mg Tab PO 5 mg BID FELA Administration Protocol Atorvastatin Calcium 10 mg 08/01/23 21:00 08/05/23 20:30 Atorvastatin 10 Mg Tab PO 10 mg HS FELA Administration Balsalazide 2,250 mg 08/01/23 21:00 08/06/23 08:19 Balsalazide Disodium 750 Mg Capsule PO 2,250 mg BID FELA Administration Carvedilol 12.5 mg 08/05/23 21:00 08/06/23 08:20 Carvedilol 6.25 Mg Tab PO 12.5 mg BID FELA Administration Dextrose/Water 25 ml 08/05/23 15:32 Dextrose 50% Syringe 50 Ml IVP PER PROTOCOL PRN Hypoglycemia Protocol Dextrose/Water 50 ml 08/05/23 15:32 Dextrose 50% Syringe 50 Ml IVP PER PROTOCOL PRN Hypoglycemia Protocol Famotidine 20 mg 08/03/23 09:00 08/06/23 08:20 Famotidine 20 Mg Tab PO 20 mg DAILY FELA Administration Ferrous Sulfate 325 mg 08/02/23 09:00 08/06/23 08:20 Ferrous Sulfate 325 Mg Tab PO 325 mg DAILY FELA Administration Gabapentin 100 mg 08/06/23 08:00 08/06/23 08:18 Gabapentin 100 Mg Cap PO 100 mg Q8HR FELA Administration Hydralazine HCl 10 mg 08/01/23 18:47 08/02/23 15:36 Hydralazine Hcl 20 Mg/Ml 1 Ml Vial IVP 10 mg Q6HR PRN Administration Blood Pressure - High Hydroxychloroquine Sulfate 200 mg 08/01/23 21:00 08/06/23 08:21 Hydroxychloroquine Sulfate 200 Mg Tab PO 200 mg BID FELA Administration Sodium Chloride 1,000 mls @ 75 mls/hr 08/01/23 14:15 08/06/23 05:41 Saline 0.9% IV 75 mls/hr .[id number] FELA Administration Ceftriaxone Sodium 2 gm/ 50 mls @ 100 mls/hr 08/06/23 09:00 08/06/23 08:20 Sodium Chloride IVPB 100 mls/hr Q24HR FELA Administration Protocol Insulin Aspart 0 unit 08/05/23 17:30 08/06/23 04:46 Insulin Aspart (Novolog) 100 Unit/Ml Vial SQ Not Given ACHS [facility] Protocol Insulin Detemir 15 unit 08/06/23 21:00 Insulin Detemir (Levemir) 100 Unit/Ml Syr SQ HS [facility] Levothyroxine Sodium 100 mcg 08/02/23 06:00 08/06/23 05:39 Levothyroxine 100 Mcg Tab PO 100 mcg DAILY@0600 FELA Administration Loratadine 10 mg 08/02/23 09:00 08/06/23 08:21 Loratadine 10 Mg Tab PO 10 mg DAILY FELA Administration Losartan Potassium 25 mg 08/02/23 09:00 08/06/23 08:21 Losartan 25 Mg Tab PO 25 mg DAILY FELA Administration Melatonin 10 mg 08/01/23 21:00 08/05/23 20:31 Melatonin 5 Mg Tablet PO 10 mg HS FELA Administration Morphine Sulfate 4 mg 07/31/23 20:07 Morphine Sulfate 4 Mg/Ml Syringe IV Q4HR PRN Severe Pain (Scale 7 to 10) Naloxone HCl 0.2 mg 07/31/23 20:07 Naloxone 0.4 Mg/Ml 1 Ml Vial IV Q2M PRN Opioid Reversal Petrolatum 1 applic 08/02/23 02:57 Zinc Oxide Paste (Z-Guard) 1 Applic TOPICAL BID PRN Wound Healing Protocol Intake and Output 08/05/23 08/06/23 08/06/23 22:59 06:59 14:59 Output Total 3 Balance -3 Output: Urine 2 Stool 1 Other: # Voids 1 2 # Bowel Movements 1 08/06/23 07:38 08/06/23 07:38
[2023-08-06 10:44] LABS: Glucose,Whole Blood 156 mg/dL (70-110)
[2023-08-06 12:42] LABS: Glucose,Whole Blood 153 mg/dL (70-110)
--- NOTE | 2023-08-06 16:09 | P.PN ---
Subjective Progress Note Date: 08/06/23 67-year-old male presents to the emergency department for evaluation of generalized weakness. Patient states that he was just discharged from [facility] today. He states that he got home and was unable to ambulate. He is concerned because he is unable to take care of himself. He does report that she is supposed to be getting a wheelchair and other devices but he would not receive them until Wednesday. He states that he was not able to ambulate while in [facility]. He was there for rehab for a foot infection. He was receiving IV antibiotics for approximately 1 month. Blood work completed in ED reveals a WBC of 8.7, hemoglobin of 10.8 and platelet count of 242, sodium 134, potassium 5.2, BUNs/creatinine of 27/1.96 which is trended up to 1.4-1.5 baseline and blood glucose of 123 UA is unremarkable except positive for large amount of leukocyte esterase 08/02/2023 Patient is seen in follow-up this morning currently lying in the bed with infectious disease following maintained on IV antibiotics. Left wound of the heel with some eschar noted will consult vascular surgery Dr. Galindo for possible bedside debridement with deep tissue cultures. Patient has been in and out of the hospital multiple times for infection and cellulitis. Patient resides at an [facility] and plans to return there. Patient currently afebrile with no reports of chest pain or shortness of breath. Patient reports not watching her diet with occasional nausea and no vomiting. 08/03/2023 Patient seen in follow-up today maintained on daptomycin with infectious disease following. Preliminary culture showing gram-negative bacilli and patient is status post bedside surgical debridement with vascular surgery. Will continue with local wound care and offloading of these lower extremities. PT/OT therapy to evaluate as patient will most likely need continued rehab for strength and mobility. Patient with significant weakness was discharged from [facility] went home for 1 day and had to return to the hospital with inability to ambulate and care for himself. Patient is afebrile with no reports of chest pain or worsening shortness of breath. Wean FiO2 as tolerated. Patient reports not much of an appetite. Will consult dietary for input and recommendations. 08/04/2023 Patient is seen in follow-up today with vascular surgery and infectious disease following. Cultures preliminary showing gram-negative bacilli and awaiting finalized cultures to determine discharge antibiotics. Patient has had previous intravenous antibiotics in the outpatient setting. Patient will likely need a PICC line on discharge with continued IV antibiotic therapy. Per social work is following arranging discharge planning needs, patient has no time left available at [facility] and will be going home with home care. Continue local wound care and vascular surgery following and will be changing dressings today on the left heel. 08/05/2023 Patient seen and evaluated in follow-up with multiple medical consultations following. Patient is maintained on antibiotics and will likely receive a PICC line today after nephrology clearance his kidney functions are mildly elevated. Patient to continue with wound care and elevating lower extremity while at rest. Dressing changed by vascular surgery today and will need follow-up in the clinic. Patient was tentatively scheduled outpatient for ALEXIA with cardioversion for history of atrial fibrillation and will consult cardiology Dr. Chávez for evaluation. Patient is afebrile with no reports of chest pain or shortness of breath. Patient is maintained on 2 L via nasal cannula and does not wear oxygen outpatient. Discussed with patient along with nursing staff about weaning FiO2 as tolerated. Recommend PT/OT therapy daily. Social work is following as patient apparently has no further days available at [facility] although is significantly weak has had multiple prolonged hospitalizations and appears to be unable to care for himself. Social work also looking into as patient reports Medicaid was applied for. Patient without much of an appetite have consulted dietary. Encouraged oral intake and will continue to monitor sugars closely. Blood sugars have been on the lower side. 08/06/2023 Patient is seen in follow-up today with infectious disease, nephrology, vascular surgery, pulmonology following. Patient is maintained on antibiotics and has received a PICC line and is maintained on gentle IV hydration kidney function slightly improving and will continue with gentle hydration and follow-up on repeat labs. Cardiology was consulted as patient was following with Dr. Chávez outpatient scheduled for a ALEXIA with cardioversion today and awaiting his recommendations regarding this. Patient to continue with local wound care and dressing changes and elevating lower extremities while at rest. Patient will likely continue on IV antibiotics in the outpatient setting along with wilber se outpatient follow-up with the wound care center with Dr. Galindo. Patient is afebrile with no reports of chest pain or shortness of breath. Patient reports tolerating diet and encouraged oral intake. Patient reports not much of an appetite. Blood sugars being monitored and will continue current regimen. Review of systems: Constitutional: No reports of fatigue, fever, or chills Cardiovascular: No reports of chest pain or palpitations Respiratory: No reports of worsening shortness of breath, occasional cough GI: reports of nausea, no vomiting, or diarrhea reports not much of an appetite : No reports of dysuria or retention Neurovascular: reports of generalized weakness All medications have been reviewed Physical exam: Gen: This is a 67-year-old male who is awake, alert and oriented x 3, well- developed, elderly appearing, ill-appearing, obese HEENT: Head is atraumatic, normocephalic. Pupils equal, round. Sclerae is anicteric. NECK: Supple. No JVD. No lymphadenopathy. No thyromegaly. LUNGS: Diminished breath sounds bilaterally otherwise clear to auscultation. No wheezes or rhonchi. No intercostal retractions. HEART: S1, S2 are muffled ABDOMEN: Soft. Bowel sounds are present. No masses. No tenderness. EXTREMITIES: No pedal edema. No calf tenderness. Left heel surgical dressing is dry and intact NEUROLOGICAL: Patient is awake, alert and oriented x3. Cranial nerves 2 through 12 are grossly intact. Diffusely weak Assessment: -Acute on chronic kidney disease stage III -Left heel unstageable ulcer/diabetic foot infection with redness and concerns for surrounding cellulitis, present on admission, previous cultures were MRSA status post bedside surgical debridement -Weakness/debility; patient was discharged from skilled rehab 24 hours prior to presenting to ED; we will consult PT/OT, patient will likely need rehab on discharge for continued strengthening -Possible UTI; present on admission, ruled out, likely asymptomatic bacteriuria -Hypertension -Hyperlipidemia -Diabetes mellitus with long-term insulin use; uncontrolled with hypoglycemia -Hypothyroidism -Paroxysmal atrial fibrillation; currently rate controlled -CAD, status post CABG and heart catheterization with stent placement -Chronic back pain -DVT prophylaxis; SCDs/subcu heparin -GI prophylaxis -full code Plan: Patient was recently discharged from [facility] and came back in shortly thereafter for concerns of left lower extremity surrounding cellulitis of an unstageable heel wound with eschar noted. Vascular surgery Dr. Galindo evaluated and is status post debridement with deep tissue cultures. Infectious diseases following and will continue on daptomycin. Patient will receive a PICC line on discharge for continued IV antibiotic therapy. Okay per nephrology Consult to PT/OT therapy as patient is significantly weak and was recently discharged from [facility] although unable to take care of himself and unable to ambulate. Social work following and patient is out of days for ECF and will be returning home with home care. Apparently Medicaid was applied for although unknown status at this time and social work is working on looking into this. Patient will be significantly high risk for readmissions as he is debilitated and unable to care for his wounds and generalized care on his own. Continue local wound care per vascular and infectious disease Recommend aspiration precautions and head of the bed elevated 30 to 45 degrees and supervision with meals. Patient without much of an appetite will consult dietary Will follow-up on repeat labs and monitor kidney functions. Replace electrolytes per protocol Patient was scheduled for ALEXIA with cardioversion from [facility] with Dr. Chávez will consult for evaluation. Blood pressures remain elevated and will adjust medications, use hydralazine as needed Continue monitoring Accu-Cheks before meals and at bedtime and will continue with sliding scale and adjust insulins accordingly. Encouraged oral intake Due to multiple complex medical issues, prognosis is guarded Case management/social work regarding discharge planning. The impression and plan of care has been dictated by Elizabet Rodriguez, Nurse Practitioner as directed. Dr. Kinsey MD I have performed a history and examination and MDM of this patient, discussed the same with the dictator, and agree with the dictator's assessment and plan as written ,documented as a scribe. Based on total visit time, I have performed more than 50% of the visit. Objective - Vital Signs Vital signs: Vital Signs Temp 97.5 F L 08/06/23 07:00 Pulse 81 08/06/23 07:00 Resp 20 08/06/23 07:00 BP 187/79 08/06/23 07:00 Pulse Ox 95 08/06/23 07:00 FiO2 Intake & Output 08/05/23 08/06/23 08/06/23 18:59 06:59 18:59 Intake Total 240 Output Total 3 200 Balance 240 -3 -200 Intake: Oral 240 Output: Urine 2 200 Stool 1 Other: Voiding Method Bedside Commode Diaper Incontinent # Voids 1 2 1 # Bowel Movements 1 - Labs CBC & Chem 7: 08/06/23 07:38 08/06/23 07:38 Labs: Abnormal Lab Results - Last 24 Hours (Table) 08/05/23 08/05/23 08/06/23 Range/Units 17:36 20:14 05:16 RBC (4.30-5.90) m/uL Hgb (13.0-17.5) gm/dL Hct (39.0-53.0) % MCHC (31.0-37.0) g/dL Lymphocytes # (1.0-4.8) k/uL BUN (9-20) mg/dL Creatinine (0.66-1.25) mg/dL Glucose (74-99) mg/dL POC Glucose (mg/dL) 162 H 144 H 150 H (70-110) mg/dL Calcium (8.4-10.2) mg/dL 08/06/23 08/06/23 08/06/23 Range/Units 07:38 07:38 10:43 RBC 3.47 L (4.30-5.90) m/uL Hgb 9.8 L (13.0-17.5) gm/dL Hct 32.6 L (39.0-53.0) % MCHC 29.9 L (31.0-37.0) g/dL Lymphocytes # 0.6 L (1.0-4.8) k/uL BUN 21 H (9-20) mg/dL Creatinine 1.62 H (0.66-1.25) mg/dL Glucose 135 H (74-99) mg/dL POC Glucose (mg/dL) 156 H (70-110) mg/dL Calcium 8.3 L (8.4-10.2) mg/dL 08/06/23 Range/Units 12:31 RBC (4.30-5.90) m/uL Hgb (13.0-17.5) gm/dL Hct (39.0-53.0) % MCHC (31.0-37.0) g/dL Lymphocytes # (1.0-4.8) k/uL BUN (9-20) mg/dL Creatinine (0.66-1.25) mg/dL Glucose (74-99) mg/dL POC Glucose (mg/dL) 153 H (70-110) mg/dL Calcium (8.4-10.2) mg/dL
[2023-08-06] MEDS: LOSARTAN 25 MG TAB PO STA (16:25)
[2023-08-06 17:18] LABS: Glucose,Whole Blood 190 mg/dL (70-110)
--- NOTE | 2023-08-06 19:08 | P.PN ---
Subjective Patient is seen for follow-up for chronic kidney disease and acute kidney injury. Serum creatinine improved to 1.6 today. Blood pressure remains elevated. Coreg was increased yesterday. Objective - Vital Signs Vital signs: Vital Signs Temp 97.8 F 08/06/23 15:00 Pulse 95 08/06/23 15:00 Resp 18 08/06/23 15:00 BP 173/83 08/06/23 15:00 Pulse Ox 93 L 08/06/23 15:00 FiO2 Intake & Output 08/06/23 08/06/23 08/07/23 06:59 18:59 06:59 Output Total 3 200 Balance -3 -200 Output: Urine 2 200 Stool 1 Other: # Voids 2 1 - Exam patient is awake, comfortable, no acute distress. Abdomen is soft nontender Examination of the lower extremities shows left leg is wrapped. no significant edema noted. Chronic skin changes noted bilaterally. MENTAL HEALTH NURSE PRACTITIONER exam grossly intact - Labs CBC & Chem 7: 08/06/23 07:38 08/06/23 07:38 Labs: Abnormal Lab Results - Last 24 Hours (Table) 08/05/23 08/06/23 08/06/23 Range/Units 20:14 05:16 07:38 RBC 3.47 L (4.30-5.90) m/uL Hgb 9.8 L (13.0-17.5) gm/dL Hct 32.6 L (39.0-53.0) % MCHC 29.9 L (31.0-37.0) g/dL Lymphocytes # 0.6 L (1.0-4.8) k/uL BUN (9-20) mg/dL Creatinine (0.66-1.25) mg/dL Glucose (74-99) mg/dL POC Glucose (mg/dL) 144 H 150 H (70-110) mg/dL Calcium (8.4-10.2) mg/dL 08/06/23 08/06/23 08/06/23 Range/Units 07:38 10:43 12:31 RBC (4.30-5.90) m/uL Hgb (13.0-17.5) gm/dL Hct (39.0-53.0) % MCHC (31.0-37.0) g/dL Lymphocytes # (1.0-4.8) k/uL BUN 21 H (9-20) mg/dL Creatinine 1.62 H (0.66-1.25) mg/dL Glucose 135 H (74-99) mg/dL POC Glucose (mg/dL) 156 H 153 H (70-110) mg/dL Calcium 8.3 L (8.4-10.2) mg/dL 08/06/23 Range/Units 17:15 RBC (4.30-5.90) m/uL Hgb (13.0-17.5) gm/dL Hct (39.0-53.0) % MCHC (31.0-37.0) g/dL Lymphocytes # (1.0-4.8) k/uL BUN (9-20) mg/dL Creatinine (0.66-1.25) mg/dL Glucose (74-99) mg/dL POC Glucose (mg/dL) 190 H (70-110) mg/dL Calcium (8.4-10.2) mg/dL Assessment and Plan Assessment: 1. Chronic kidney disease NKF stage IV with baseline creatinine around 1.8-2 mg/dL. Etiology is diabetic kidney disease. ultrasound of the kidneys in May 2023 did not show any obstructive uropathy. A 4 mm nonobstructive right renal stone was noted. 2. Left heel nonhealing ulcer with osteomyelitis, status post debridement and maintained on long-term antibiotics. 3. Asymptomatic pyuria 4. Paroxysmal A. fib 5. Coronary artery disease with history of coronary artery bypass surgery and coronary stent placement. Plan: Patient will need outpatient follow-up with nephrology for chronic kidney disease. Continue with angiotensin receptor blockers. DC IV fluids Increase Coreg further if blood pressure remains elevated. Consider decreasing dose of plaquenil to 100 mg daily given the underlying infection.
[2023-08-06 20:45] LABS: Glucose,Whole Blood 326 mg/dL (70-110)
[2023-08-06] MEDS: INSULIN DETEMIR (LEVEMIR) 100 UNIT/ML SYR SQ SCH (21:43)
[2023-08-07 05:42] LABS: Glucose,Whole Blood 88 mg/dL (70-110)
[2023-08-07 07:58] LABS: African American GFR (CKD) 49 (>60 ml/min/1.73 sqM); Anion Gap 5 mmol/L; Blood Urea Nitrogen 23 mg/dL (9-20); Calcium 8.4 mg/dL (8.4-10.2); Carbon Dioxide 27 mmol/L (22-30); Chloride 104 mmol/L (98-107); Glucose 68 mg/dL (74-99); Non-African American GFR(CKD) 43 (>60 ml/min/1.73 sqM); Potassium 3.9 mmol/L (3.5-5.1); Sodium 136 mmol/L (137-145)
--- NOTE | 2023-08-07 08:45 | P.PN ---
Progress Note - Text [id number] gentleman who had a infected callus left on the heel with did the debridement will be changing dressing daily basis we will use Medihoney gel today will change the dressing some area is granulating we will continue with Medihoney gel next dressing will be changed on Wednesday patient has no fever and chills continue with IV antibiotic under care of infectious disease
[2023-08-07 09:48] LABS: Basophils # (A) 0.08 X 10*3/uL (0.00-0.10); Basophils % (A) 1.3 %; Eosinophils # (A) 0.56 X 10*3/uL (0.04-0.35); Eosinophils % (A) 8.8 %; HCT 33.5 % (39.6-50.0); HGB 9.8 g/dL (13.0-17.0); Lymphocytes % (A) 15.8 %; MCH 27.8 pg (27.0-32.0); MCHC 29.3 g/dL (32.0-37.0); MCV 95.2 FL (80.0-97.0); Mean Platelet Volume 11.1 FL (9.5-12.2); Monocytes # (A) 0.74 X 10*3/uL (0.20-1.00); Monocytes % (A) 11.7 %; NRBC Per 100 WBC 0 X 10*3/uL (0.00-0.01); Neutrophils # (A) 3.94 X 10*3/uL (1.80-7.70); Neutrophils % (A) 62.2 %; Platelet Count 197 X 10*3/uL (140-440); RBC 3.52 X 10*6/uL (4.40-5.60); RDW 15.2 % (11.5-14.5); WBC 6.33 X 10*3/uL (4.50-10.00)
[2023-08-07] MEDS: LOSARTAN 50 MG TAB PO SCH (11:03)
[2023-08-07 11:53] LABS: Glucose,Whole Blood 66 mg/dL (70-110)
[2023-08-07 12:14] LABS: Glucose,Whole Blood 82 mg/dL (70-110)
[2023-08-07] MEDS: carvediloL 12.5 MG TAB PO ONE (13:39)
--- NOTE | 2023-08-07 14:19 | P.PN ---
Subjective Progress Note Date: 08/07/23 SUBJECTIVE: Patient is seen and examined at bedside this a.m. On telemetry monitoring his heart rate is much better controlled. On telemetry he appears to be in atrial flutter with average heart rate around 80s to 100 bpm. He is noticed to be slightly hypertensive for which I will increase his losartan and Coreg dose. BP 183/83, heart rate 70, Hemoglobin 9.8, creatinine 1.6. Creatinine is at baseline. No signs of active bleeding on Eliquis PHYSICAL EXAMINATION Vital signs reviewed. Head: Normocephalic. Eyes: Sclerae nonicteric. Neck: Brisk carotid upstroke, no jugular venous distention. Lungs: Diminished air entry bilateral lung bases, no crackles audible. Heart: Irregularly irregular, S1-S2, no S3, 1/ 6 systolic murmur audible Abdomen: Soft nontender, bowel sounds present, Extremities: 1+ edema in bilateral lower extremity Neuro: Alert, oriented, no focal neurological deficits. Detailed neuro exam was not performed. ASSESSMENT Persistent atrial flutter/atrial tachycardia, heart rate better controlled. Resting heart rate around 80s to 100 bpm Generalized weakness and fatigue Type 2 diabetes mellitus CAD s/p PCI and CABG Essential hypertension Dyslipidemia Left heel unstageable ulcer/diabetic foot infection with redness and concerns for surrounding cellulitis, present on admission, previous cultures were MRSA status post bedside surgical debridement Possible UTI PLAN Increase Coreg to 12.5 mg twice daily. Increase losartan to 50 mg daily. This is done in view of his elevated blood pressure. Start aspirin 81 mg for CAD Amiodarone 200 mg twice daily, Eliquis 5 mg twice daily, atorvastatin 40mg. Patient is scheduled for an outpatient cardioversion procedure with Dr. Chávez. At this time patient is rate controlled. However he continues to report generalized weakness. Therefore we will continue to monitor him and reevaluate him tomorrow if he will need cardioversion for Wednesday. Lester Camejo MD, FACC, RPVI Thank you for allowing [facility] to participate in this patient's care. Please contact us in case of any followup questions. Objective - Vital Signs Vital signs: Vital Signs Temp 97.5 F L 08/07/23 07:00 Pulse 70 08/07/23 13:03 Resp 16 08/07/23 07:00 BP 183/83 08/07/23 13:03 Pulse Ox 96 08/07/23 13:03 FiO2 21 08/07/23 08:50 Intake & Output 08/06/23 08/07/23 08/07/23 18:59 06:59 18:59 Output Total 200 2 Balance -200 -2 Output: Urine 200 Stool 2 Other: Voiding Method Bedside Commode Diaper Incontinent # Voids 1 1 1 # Bowel Movements 1 - Labs CBC & Chem 7: 08/07/23 06:47 08/07/23 06:47 Labs: Abnormal Lab Results - Last 24 Hours (Table) 08/06/23 08/06/23 08/07/23 Range/Units 17:15 20:44 06:47 RBC 3.52 L (4.40-5.60) X 10*6/uL Hgb 9.8 L (13.0-17.0) g/dL Hct 33.5 L (39.6-50.0) % MCHC 29.3 L (32.0-37.0) g/dL RDW 15.2 H (11.5-14.5) % Eosinophils # 0.56 H (0.04-0.35) X 10*3/uL Sodium (137-145) mmol/L BUN (9-20) mg/dL Creatinine (0.66-1.25) mg/dL Glucose (74-99) mg/dL POC Glucose (mg/dL) 190 H 326 H (70-110) mg/dL 08/07/23 08/07/23 Range/Units 06:47 11:52 RBC (4.40-5.60) X 10*6/uL Hgb (13.0-17.0) g/dL Hct (39.6-50.0) % MCHC (32.0-37.0) g/dL RDW (11.5-14.5) % Eosinophils # (0.04-0.35) X 10*3/uL Sodium 136 L (137-145) mmol/L BUN 23 H (9-20) mg/dL Creatinine 1.64 H (0.66-1.25) mg/dL Glucose 68 L (74-99) mg/dL POC Glucose (mg/dL) 66 L (70-110) mg/dL
--- NOTE | 2023-08-07 16:55 | P.PN ---
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 Patient has been evaluated by vascular surgery and did have debridement of his wound to the left heel cultures obtained did not mention any extension down to the wound. On today's evaluation that is 08/06/2023, Patient is afebrile this morning and denies any chills, patient mention breathing comfortably and is currently on room air, patient denies any chest pain occasional cough patient denies any abdominal pain no diarrhea no nausea no vomiting, denies any worsening pain to the left heel pneumonia. Patient white count is 7.6, there is 1.62 Objective - Vital Signs Vital signs: Vital Signs Temp 97.8 F 08/06/23 20:21 Pulse 97 08/06/23 20:21 Resp 16 08/06/23 20:21 BP 154/81 08/06/23 20:21 Pulse Ox 95 08/06/23 20:21 FiO2 Intake & Output 08/06/23 08/06/23 08/07/23 06:59 18:59 06:59 Output Total 3 200 Balance -3 -200 Output: Urine 2 200 Stool 1 Other: # Voids 2 1 - Labs CBC & Chem 7: 08/07/23 06:47 08/07/23 06:47 Labs: Abnormal Lab Results - Last 24 Hours (Table) 08/06/23 08/06/23 08/06/23 Range/Units 05:16 07:38 07:38 RBC 3.47 L (4.30-5.90) m/uL Hgb 9.8 L (13.0-17.5) gm/dL Hct 32.6 L (39.0-53.0) % MCHC 29.9 L (31.0-37.0) g/dL Lymphocytes # 0.6 L (1.0-4.8) k/uL BUN 21 H (9-20) mg/dL Creatinine 1.62 H (0.66-1.25) mg/dL Glucose 135 H (74-99) mg/dL POC Glucose (mg/dL) 150 H (70-110) mg/dL Calcium 8.3 L (8.4-10.2) mg/dL 08/06/23 08/06/23 08/06/23 Range/Units 10:43 12:31 17:15 RBC (4.30-5.90) m/uL Hgb (13.0-17.5) gm/dL Hct (39.0-53.0) % MCHC (31.0-37.0) g/dL Lymphocytes # (1.0-4.8) k/uL BUN (9-20) mg/dL Creatinine (0.66-1.25) mg/dL Glucose (74-99) mg/dL POC Glucose (mg/dL) 156 H 153 H 190 H (70-110) mg/dL Calcium (8.4-10.2) mg/dL 08/06/23 Range/Units 20:44 RBC (4.30-5.90) m/uL Hgb (13.0-17.5) gm/dL Hct (39.0-53.0) % MCHC (31.0-37.0) g/dL Lymphocytes # (1.0-4.8) k/uL BUN (9-20) mg/dL Creatinine (0.66-1.25) mg/dL Glucose (74-99) mg/dL POC Glucose (mg/dL) 326 H (70-110) mg/dL Calcium (8.4-10.2) mg/dL Assessment and Plan (1) Cellulitis of left foot Current Visit: No Status: Acute Code(s): L03.116 - CELLULITIS OF LEFT LOWER LIMB SNOMED Code(s): 30921966772812059 (2) Diabetic foot ulcer Current Visit: No Status: Acute Code(s): E11.621 - TYPE 2 DIABETES MELLITUS WITH FOOT ULCER; L97.509 - NON-PRESSURE CHRONIC ULCER OTH PRT UNSP FOOT W UNSP SEVERITY SNOMED Code(s): 854220665 (3) Penicillin allergy Current Visit: No Status: Acute Code(s): Z88.0 - ALLERGY STATUS TO PENICILLIN SNOMED Code(s): 10351985 Plan: This is a telehealth visit 1patient with a left heel unstageable pressure ulcer/diabetic foot ulcer with secondary infection and concern for secondary cellulitis as there was erythema around the area of the eschar we will need to cover for the gram-positive skin jaycee to be the likely pathogen with the last culture positive for MRSA 2-penicillin allergy that will limit the number of antibiotics safe to use 3-patient did have renal insufficiency high risk of nephrotoxicity from vancomycin 4-patient has been evaluated by vascular surgery and status post debridement of the wound and deep culture which are currently growing Proteus Christina and staph epi 5-patient manage has been adjusted to e Rocephin 2 g daily Christina and staph epi more likely skin jaycee and does not need any treatment Dictation was produced using [employer] dictation software. please excuse any grammatical, word or spelling errors. Time with Patient: Less than 30
--- NOTE | 2023-08-07 16:56 | P.PN ---
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 Patient has been evaluated by vascular surgery and did have debridement of his wound to the left heel cultures obtained did not mention any extension down to the wound. On today's evaluation that is 08/07/2023,the patient denies any fever or any chills, patient is breathing comfortably on room air, the patient denies chest pain shortness of breath and no significant cough, patient denies abdominal pain, no nausea vomiting or diarrhea. Patient pain to the left ear is currently controlled Patient white count is 6.33, today is 1.64 culture with the Proteus Christina and staph epi Objective - Vital Signs Vital signs: Vital Signs Temp 97.6 F 08/07/23 14:58 Pulse 65 08/07/23 14:58 Resp 16 08/07/23 14:58 BP 165/77 08/07/23 14:58 Pulse Ox 97 08/07/23 14:58 FiO2 21 08/07/23 08:50 Intake & Output 08/06/23 08/07/23 08/07/23 18:59 06:59 18:59 Output Total 200 2 Balance -200 -2 Output: Urine 200 Stool 2 Other: Voiding Method Bedside Commode Diaper Incontinent # Voids 1 1 1 # Bowel Movements 1 - Exam GENERAL DESCRIPTION: An elderly male lying in bed in no distress RESPIRATORY SYSTEM: Unlabored breathing , decreased breath sounds at bases HEART: S1 S2 regular rate and rhythm , ABDOMEN: Soft , no tenderness EXTREMITIES: Left heel wound is currently dressed, no drainage - Labs CBC & Chem 7: 08/07/23 06:47 08/07/23 06:47 Labs: Abnormal Lab Results - Last 24 Hours (Table) 08/06/23 08/06/23 08/07/23 Range/Units 17:15 20:44 06:47 RBC 3.52 L (4.40-5.60) X 10*6/uL Hgb 9.8 L (13.0-17.0) g/dL Hct 33.5 L (39.6-50.0) % MCHC 29.3 L (32.0-37.0) g/dL RDW 15.2 H (11.5-14.5) % Eosinophils # 0.56 H (0.04-0.35) X 10*3/uL Sodium (137-145) mmol/L BUN (9-20) mg/dL Creatinine (0.66-1.25) mg/dL Glucose (74-99) mg/dL POC Glucose (mg/dL) 190 H 326 H (70-110) mg/dL 08/07/23 08/07/23 Range/Units 06:47 11:52 RBC (4.40-5.60) X 10*6/uL Hgb (13.0-17.0) g/dL Hct (39.6-50.0) % MCHC (32.0-37.0) g/dL RDW (11.5-14.5) % Eosinophils # (0.04-0.35) X 10*3/uL Sodium 136 L (137-145) mmol/L BUN 23 H (9-20) mg/dL Creatinine 1.64 H (0.66-1.25) mg/dL Glucose 68 L (74-99) mg/dL POC Glucose (mg/dL) 66 L (70-110) mg/dL Assessment and Plan (1) Cellulitis of left foot Current Visit: No Status: Acute Code(s): L03.116 - CELLULITIS OF LEFT LOWER LIMB SNOMED Code(s): 14495625469682977 (2) Diabetic foot ulcer Current Visit: No Status: Acute Code(s): E11.621 - TYPE 2 DIABETES MELLITUS WITH FOOT ULCER; L97.509 - NON-PRESSURE CHRONIC ULCER OTH PRT UNSP FOOT W UNSP SEVERITY SNOMED Code(s): 596085352 (3) Penicillin allergy Current Visit: No Status: Acute Code(s): Z88.0 - ALLERGY STATUS TO PENICILLIN SNOMED Code(s): 28990512 Plan: 1patient with a left heel unstageable pressure ulcer/diabetic foot ulcer with secondary infection and concern for secondary cellulitis as there was erythema around the area of the eschar we will need to cover for the gram-positive skin jaycee to be the likely pathogen with the last culture positive for MRSA 2-penicillin allergy that will limit the number of antibiotics safe to use 3-patient has been evaluated by vascular surgery and status post debridement of the wound and deep culture which are currently growing Proteus Christina and staph epi 4-patient to continue with Rocephin 2 g daily and monitor clinical course closely Dictation was produced using [employer] dictation software. please excuse any grammatical, word or spelling errors. Time with Patient: Less than 30
[2023-08-07 17:06] LABS: Glucose,Whole Blood 92 mg/dL (70-110)
[2023-08-07] MEDS: ASPIRIN 81 MG PO SCH (17:44)
[2023-08-07] MEDS: carvediloL 12.5 MG TAB PO SCH (17:44)
--- NOTE | 2023-08-07 19:58 | P.PN ---
Subjective Progress Note Date: 08/07/23 Patient is seen for follow-up for chronic kidney disease and acute kidney injury. Serum creatinine improved to 1.6 today. No new complaints. Patient is awake, comfortable, no acute distress. Abdomen is soft nontender Examination of the lower extremities shows left leg is wrapped. no significant edema noted. Chronic skin changes noted bilaterally. SNUBBER exam grossly intact Objective - Vital Signs Vital signs: Vital Signs Temp 97.5 F L 08/07/23 07:00 Pulse 70 08/07/23 13:03 Resp 16 08/07/23 07:00 BP 183/83 08/07/23 13:03 Pulse Ox 96 08/07/23 13:03 FiO2 21 08/07/23 08:50 Intake & Output 08/06/23 08/07/23 08/07/23 18:59 06:59 18:59 Output Total 200 2 Balance -200 -2 Output: Urine 200 Stool 2 Other: Voiding Method Bedside Commode Diaper Incontinent # Voids 1 1 1 # Bowel Movements 1 - Labs CBC & Chem 7: 08/07/23 06:47 08/07/23 06:47 Labs: Abnormal Lab Results - Last 24 Hours (Table) 08/06/23 08/06/23 08/07/23 Range/Units 17:15 20:44 06:47 RBC 3.52 L (4.40-5.60) X 10*6/uL Hgb 9.8 L (13.0-17.0) g/dL Hct 33.5 L (39.6-50.0) % MCHC 29.3 L (32.0-37.0) g/dL RDW 15.2 H (11.5-14.5) % Eosinophils # 0.56 H (0.04-0.35) X 10*3/uL Sodium (137-145) mmol/L BUN (9-20) mg/dL Creatinine (0.66-1.25) mg/dL Glucose (74-99) mg/dL POC Glucose (mg/dL) 190 H 326 H (70-110) mg/dL 08/07/23 08/07/23 Range/Units 06:47 11:52 RBC (4.40-5.60) X 10*6/uL Hgb (13.0-17.0) g/dL Hct (39.6-50.0) % MCHC (32.0-37.0) g/dL RDW (11.5-14.5) % Eosinophils # (0.04-0.35) X 10*3/uL Sodium 136 L (137-145) mmol/L BUN 23 H (9-20) mg/dL Creatinine 1.64 H (0.66-1.25) mg/dL Glucose 68 L (74-99) mg/dL POC Glucose (mg/dL) 66 L (70-110) mg/dL Assessment and Plan Assessment: 1. Chronic kidney disease NKF stage IV with baseline creatinine around 1.8-2 mg/dL. Etiology is diabetic kidney disease. ultrasound of the kidneys in May 2023 did not show any obstructive uropathy. A 4 mm nonobstructive right renal stone was noted. 2. Left heel nonhealing ulcer with osteomyelitis, status post debridement and maintained on long-term antibiotics. 3. Asymptomatic pyuria 4. Paroxysmal A. fib 5. Coronary artery disease with history of coronary artery bypass surgery and coronary stent placement. Plan: Patient will need outpatient follow-up with nephrology for chronic kidney dis ease. Continue with angiotensin receptor blockers. Off IV fluids Increased Coreg further if blood pressure remains elevated. Consider decreasing dose of plaquenil to 100 mg daily given the underlying infection.
[2023-08-07] MEDS: ATORVASTATIN 40 MG TAB PO SCH (20:33)
[2023-08-07 20:46] LABS: Glucose,Whole Blood 104 mg/dL (70-110)
[2023-08-08 05:28] LABS: Glucose,Whole Blood 121 mg/dL (70-110)
[2023-08-08 10:57] LABS: Blood Urea Nitrogen 20.4 mg/dL (9.0-27.0); Glucose 115 mg/dL (70-110)
[2023-08-08 10:58] LABS: Calcium 8.3 mg/dL (8.7-10.3); Carbon Dioxide 24.6 mmol/L (21.6-31.8); Chloride 103 mmol/L (96-109); Sodium 140 mmol/L (135-145)
[2023-08-08 11:37] LABS: Basophils # (A) 0.09 X 10*3/uL (0.00-0.10); Basophils % (A) 1.2 %; Eosinophils # (A) 0.44 X 10*3/uL (0.04-0.35); Eosinophils % (A) 6.1 %; HCT 31.6 % (39.6-50.0); HGB 9.6 g/dL (13.0-17.0); Lymphocytes # (A) 0.67 X 10*3/uL (0.90-5.00); Lymphocytes % (A) 9.3 %; MCH 27.9 pg (27.0-32.0); MCHC 30.4 g/dL (32.0-37.0); MCV 91.9 FL (80.0-97.0); Monocytes # (A) 0.57 X 10*3/uL (0.20-1.00); Monocytes % (A) 7.9 %; NRBC Per 100 WBC 0 X 10*3/uL (0.00-0.01); Neutrophils # (A) 5.43 X 10*3/uL (1.80-7.70); Neutrophils % (A) 75.1 %; Platelet Count 166 X 10*3/uL (140-440); RBC 3.44 X 10*6/uL (4.40-5.60); RDW 15.1 % (11.5-14.5); WBC 7.23 X 10*3/uL (4.50-10.00)
[2023-08-08 12:26] LABS: Glucose,Whole Blood 134 mg/dL (70-110)
--- NOTE | 2023-08-08 12:38 | P.PN ---
Subjective Progress Note Date: 08/08/23 Patient is seen for follow-up for chronic kidney disease and acute kidney injury. Serum creatinine improved to 1.6 today. No new complaints. Patient is awake, comfortable, no acute distress. Abdomen is soft nontender Examination of the lower extremities shows left leg is wrapped. no significant edema noted. Chronic skin changes noted bilaterally. EXTERMINATION INSPECTOR exam grossly intact Objective - Vital Signs Vital signs: Vital Signs Temp 97.6 F 08/08/23 07:00 Pulse 92 08/08/23 07:00 Resp 16 08/08/23 07:00 BP 145/97 08/08/23 07:00 Pulse Ox 93 L 08/08/23 07:00 FiO2 21 08/07/23 08:50 Intake & Output 08/07/23 08/08/23 08/08/23 18:59 06:59 18:59 Output Total 200 2 Balance -200 -2 Output: Urine 200 Stool 2 Other: Voiding Method Bedside Commode Diaper Incontinent # Voids 1 1 1 # Bowel Movements 1 - Labs CBC & Chem 7: 08/07/23 06:47 08/08/23 04:27 Labs: Abnormal Lab Results - Last 24 Hours (Table) 08/07/23 08/08/23 08/08/23 Range/Units 11:52 04:27 05:26 Anion Gap 12.40 H (4.00-12.00) mmol/L Creatinine 1.7 H (0.6-1.5) mg/dL Est GFR (CKD-EPI) 44 L (>=60) Glucose 115 H (70-110) mg/dL POC Glucose (mg/dL) 66 L 121 H (70-110) mg/dL Calcium 8.3 L (8.7-10.3) mg/dL Assessment and Plan Assessment: 1. Chronic kidney disease NKF stage IV with baseline creatinine around 1.8-2 mg/dL. Etiology is diabetic kidney disease. ultrasound of the kidneys in May 2023 did not show any obstructive uropathy. A 4 mm non-obstructive right renal stone was noted. 2. Left heel non-healing ulcer with osteomyelitis, status post debridement and maintained on long-term antibiotics. 3. Asymptomatic pyuria 4. Paroxysmal A. fib 5. Coronary artery disease with history of coronary artery bypass surgery and coronary stent placement. Plan: Patient will need outpatient follow-up with nephrology for chronic kidney disease. Continue with angiotensin receptor blockers. Off IV fluids Increased Coreg further if blood pressure remains elevated. Consider decreasing dose of plaquenil to 100 mg daily given the underlying infection.
--- NOTE | 2023-08-08 13:07 | P.PN ---
Subjective Progress Note Date: 08/08/23 08/07/23 Patient is seen and examined at bedside this a.m. On telemetry monitoring his heart rate is much better controlled. On telemetry he appears to be in atrial flutter with average heart rate around 80s to 100 bpm. He is noticed to be slightly hypertensive for which I will increase his losartan and Coreg dose. BP 183/83, heart rate 70, Hemoglobin 9.8, creatinine 1.6. Creatinine is at baseline. No signs of active bleeding on Eliquis August 08, 2023 Blood pressure 145/97, heart rate 70s-90s atrial fibrillation, rate controlled, no new cardiovascular symptoms. Still reports generalized weakness but improved. Hemoglobin 9.6, sodium 140, BUN 20, creatinine 1.7, PHYSICAL EXAMINATION Vital signs reviewed. Head: Normocephalic. Eyes: Sclerae nonicteric. Neck: Brisk carotid upstroke, no jugular venous distention. Lungs: Diminished air entry bilateral lung bases, no crackles audible. Heart: Irregularly irregular, S1-S2, no S3, 1/ 6 systolic murmur audible Abdomen: Soft nontender, bowel sounds present, Extremities: 1+ edema in bilateral lower extremity Neuro: Alert, oriented, no focal neurological deficits. Detailed neuro exam was not performed. ASSESSMENT Persistent atrial flutter/atrial tachycardia, heart rate better controlled. Resting heart rate around 80s to 100 bpm Generalized weakness and fatigue Type 2 diabetes mellitus CAD s/p PCI and CABG Essential hypertension Dyslipidemia Left heel unstageable ulcer/diabetic foot infection with redness and concerns for surrounding cellulitis, present on admission, previous cultures were MRSA status post bedside surgical debridement Possible UTI PLAN Increase Coreg to 12.5 mg twice daily. Increase losartan to 50 mg daily. This is done in view of his elevated blood pressure. Start aspirin 81 mg for CAD Amiodarone 200 mg twice daily, Eliquis 5 mg twice daily, atorvastatin 40mg. Start torsemide 10 mg for mild lower extremity swelling. Patient was scheduled for an outpatient ALEXIA cardioversion. Will keep patient n.p.o. after midnight, will plan for ALEXIA cardioversion tomorrow. Will reach out to Dr Chávez and get his opinion on this. Lester Camejo MD, FACC, RPVI Thank you for allowing [facility] to participate in this patient's care. Please contact us in case of any followup questions. Objective - Vital Signs Vital signs: Vital Signs Temp 97.6 F 08/08/23 07:00 Pulse 92 08/08/23 07:00 Resp 16 08/08/23 07:00 BP 145/97 08/08/23 07:00 Pulse Ox 93 L 08/08/23 07:00 FiO2 21 08/07/23 08:50 Intake & Output 08/07/23 08/08/23 08/08/23 18:59 06:59 18:59 Output Total 200 2 Balance -200 -2 Output: Urine 200 Stool 2 Other: Voiding Method Bedside Commode Diaper Incontinent # Voids 1 1 1 # Bowel Movements 1 - Labs CBC & Chem 7: 08/08/23 04:27 08/08/23 04:27 Labs: Abnormal Lab Results - Last 24 Hours (Table) 08/08/23 08/08/23 08/08/23 Range/Units 04:27 04:27 05:26 RBC 3.44 L (4.40-5.60) X 10*6/uL Hgb 9.6 L (13.0-17.0) g/dL Hct 31.6 L (39.6-50.0) % MCHC 30.4 L (32.0-37.0) g/dL RDW 15.1 H (11.5-14.5) % Lymphocytes # 0.67 L (0.90-5.00) X 10*3/uL Eosinophils # 0.44 H (0.04-0.35) X 10*3/uL Anion Gap 12.40 H (4.00-12.00) mmol/L Creatinine 1.7 H (0.6-1.5) mg/dL Est GFR (CKD-EPI) 44 L (>=60) Glucose 115 H (70-110) mg/dL POC Glucose (mg/dL) 121 H (70-110) mg/dL Calcium 8.3 L (8.7-10.3) mg/dL 08/08/23 Range/Units 12:25 RBC (4.40-5.60) X 10*6/uL Hgb (13.0-17.0) g/dL Hct (39.6-50.0) % MCHC (32.0-37.0) g/dL RDW (11.5-14.5) % Lymphocytes # (0.90-5.00) X 10*3/uL Eosinophils # (0.04-0.35) X 10*3/uL Anion Gap (4.00-12.00) mmol/L Creatinine (0.6-1.5) mg/dL Est GFR (CKD-EPI) (>=60) Glucose (70-110) mg/dL POC Glucose (mg/dL) 134 H (70-110) mg/dL Calcium (8.7-10.3) mg/dL
[2023-08-08] MEDS: TORSEMIDE 20 MG TAB PO SCH (13:29)
--- NOTE | 2023-08-08 14:12 | P.PN ---
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 Patient has been evaluated by vascular surgery and did have debridement of his wound to the left heel cultures obtained did not mention any extension down to the wound. On today's evaluation that is 08/08/2023,the patient remains to be afebrile, patient is on room air not requiring supplemental oxygen and denies any shortness of breath no chest pain or cough.Patient denies having any nausea or vomiting, no abdominal pain and no diarrhea has been reported denies pain to the left heel wound. Patient white count 7.23, creatinine is 1.7 Objective - Vital Signs Vital signs: Vital Signs Temp 97.6 F 08/08/23 07:00 Pulse 92 08/08/23 07:00 Resp 16 08/08/23 07:00 BP 145/97 08/08/23 07:00 Pulse Ox 93 L 08/08/23 07:00 FiO2 21 08/07/23 08:50 Intake & Output 08/07/23 08/08/23 08/08/23 18:59 06:59 18:59 Output Total 200 2 Balance -200 -2 Output: Urine 200 Stool 2 Other: Voiding Method Bedside Commode Diaper Incontinent # Voids 1 1 1 # Bowel Movements 1 - Exam GENERAL DESCRIPTION: An elderly male lying in bed in no distress RESPIRATORY SYSTEM: Unlabored breathing , decreased breath sounds at bases HEART: S1 S2 regular rate and rhythm , ABDOMEN: Soft , no tenderness EXTREMITIES: Left heel wound is currently dressed, nursing staff mention overall wound looks clean at the time of dressing changes yesterday dressing supposed to be changed tomorrow - Labs CBC & Chem 7: 08/08/23 04:27 08/08/23 04:27 Labs: Abnormal Lab Results - Last 24 Hours (Table) 08/08/23 08/08/23 08/08/23 Range/Units 04:27 04:27 05:26 RBC 3.44 L (4.40-5.60) X 10*6/uL Hgb 9.6 L (13.0-17.0) g/dL Hct 31.6 L (39.6-50.0) % MCHC 30.4 L (32.0-37.0) g/dL RDW 15.1 H (11.5-14.5) % Lymphocytes # 0.67 L (0.90-5.00) X 10*3/uL Eosinophils # 0.44 H (0.04-0.35) X 10*3/uL Anion Gap 12.40 H (4.00-12.00) mmol/L Creatinine 1.7 H (0.6-1.5) mg/dL Est GFR (CKD-EPI) 44 L (>=60) Glucose 115 H (70-110) mg/dL POC Glucose (mg/dL) 121 H (70-110) mg/dL Calcium 8.3 L (8.7-10.3) mg/dL 08/08/23 Range/Units 12:25 RBC (4.40-5.60) X 10*6/uL Hgb (13.0-17.0) g/dL Hct (39.6-50.0) % MCHC (32.0-37.0) g/dL RDW (11.5-14.5) % Lymphocytes # (0.90-5.00) X 10*3/uL Eosinophils # (0.04-0.35) X 10*3/uL Anion Gap (4.00-12.00) mmol/L Creatinine (0.6-1.5) mg/dL Est GFR (CKD-EPI) (>=60) Glucose (70-110) mg/dL POC Glucose (mg/dL) 134 H (70-110) mg/dL Calcium (8.7-10.3) mg/dL Assessment and Plan (1) Cellulitis of left foot Current Visit: No Status: Acute Code(s): L03.116 - CELLULITIS OF LEFT LOWER LIMB SNOMED Code(s): 79882871011174048 (2) Diabetic foot ulcer Current Visit: No Status: Acute Code(s): E11.621 - TYPE 2 DIABETES MELLITUS WITH FOOT ULCER; L97.509 - NON-PRESSURE CHRONIC ULCER OTH PRT UNSP FOOT W UNSP SEVERITY SNOMED Code(s): 719103100 (3) Penicillin allergy Current Visit: No Status: Acute Code(s): Z88.0 - ALLERGY STATUS TO PENICILLIN SNOMED Code(s): 54501807 Plan: 1patient with a left heel unstageable pressure ulcer/diabetic foot ulcer with secondary infection and concern for secondary cellulitis as there was erythema around the area of the eschar we will need to cover for the gram-positive skin jaycee to be the likely pathogen with the last culture positive for MRSA 2-penicillin allergy that will limit the number of antibiotics safe to use 3-patient has been evaluated by vascular surgery and status post debridement of the wound and deep culture which are currently growing Proteus Christina and staph epi 4-patient to continue with Rocephin 2 g daily waiting for outpatient IV antibiotic arrangement Dictation was produced using [employer] dictation software. please excuse any grammatical, word or spelling errors. Time with Patient: Less than 30
[2023-08-08 17:12] LABS: Glucose,Whole Blood 117 mg/dL (70-110)
[2023-08-08 20:40] LABS: Glucose,Whole Blood 110 mg/dL (70-110)
[2023-08-09 06:19] LABS: Glucose,Whole Blood 167 mg/dL (70-110)
[2023-08-09 07:04] LABS: Basophils # (A) 0.1 k/uL (0-0.2); Basophils % (A) 1 %; Eosinophils # (A) 0.1 k/uL (0-0.7); Eosinophils % (A) 2 %; HCT 33.4 % (39.0-53.0); HGB 10.1 gm/dL (13.0-17.5); Hypochromasia Marked; Lymphocytes # (A) 0.5 k/uL (1.0-4.8); Lymphocytes % (A) 8 %; MCH 28.9 pg (25.0-35.0); MCHC 30.1 g/dL (31.0-37.0); MCV 95.9 fL (80.0-100.0); Mean Platelet Volume 8.2; Monocytes # (A) 0.4 k/uL (0-1.0); Monocytes % (A) 7 %; Neutrophils # (A) 5.2 k/uL (1.3-7.7); Neutrophils % (A) 81 %; Platelet Count 234 k/uL (150-450); RBC 3.48 m/uL (4.30-5.90); RDW 14.9 % (11.5-15.5); WBC 6.4 k/uL (3.8-10.6)
--- NOTE | 2023-08-09 08:42 | P.PN ---
Subjective Patient is seen in follow-up for chronic kidney disease. Renal function fairly stable this admission. Oral intake fair. No vomiting or diarrhea. Vital signs are stable. General: No acute distress. HEENT: Head exam is unremarkable. LUNGS: No audible rhonchi or wheezes. HEART: Rate and Rhythm are regular. ABDOMEN: Nontender. EXTREMITITES: Left foot wrapped. No drainage. Objective - Vital Signs Vital signs: Vital Signs Temp 97.6 F 08/09/23 07:35 Pulse 86 08/09/23 07:35 Resp 18 08/09/23 07:35 BP 182/122 08/09/23 07:35 Pulse Ox 94 L 08/09/23 07:35 FiO2 21 08/07/23 08:50 Intake & Output 08/08/23 08/09/23 08/09/23 18:59 06:59 18:59 Output Total 1 Balance -1 Output: Stool 1 Other: Voiding Method Bedside Commode Diaper Incontinent # Voids 2 1 # Bowel Movements 1 - Labs CBC & Chem 7: 08/09/23 06:37 08/08/23 04:27 Labs: Abnormal Lab Results - Last 24 Hours (Table) 08/08/23 08/08/23 08/08/23 Range/Units 04:27 04:27 12:25 RBC 3.44 L (4.40-5.60) X 10*6/uL Hgb 9.6 L (13.0-17.0) g/dL Hct 31.6 L (39.6-50.0) % MCHC 30.4 L (32.0-37.0) g/dL RDW 15.1 H (11.5-14.5) % Lymphocytes # 0.67 L (0.90-5.00) X 10*3/uL Eosinophils # 0.44 H (0.04-0.35) X 10*3/uL Anion Gap 12.40 H (4.00-12.00) mmol/L Creatinine 1.7 H (0.6-1.5) mg/dL Est GFR (CKD-EPI) 44 L (>=60) Glucose 115 H (70-110) mg/dL POC Glucose (mg/dL) 134 H (70-110) mg/dL Calcium 8.3 L (8.7-10.3) mg/dL 08/08/23 08/09/23 08/09/23 Range/Units 17:11 06:17 06:37 RBC 3.48 L (4.40-5.60) X 10*6/uL Hgb 10.1 L (13.0-17.0) g/dL Hct 33.4 L (39.6-50.0) % MCHC 30.1 L (32.0-37.0) g/dL RDW (11.5-14.5) % Lymphocytes # 0.5 L (0.90-5.00) X 10*3/uL Eosinophils # (0.04-0.35) X 10*3/uL Anion Gap (4.00-12.00) mmol/L Creatinine (0.6-1.5) mg/dL Est GFR (CKD-EPI) (>=60) Glucose (70-110) mg/dL POC Glucose (mg/dL) 117 H 167 H (70-110) mg/dL Calcium (8.7-10.3) mg/dL Assessment and Plan Plan: Assessment: 1. Chronic kidney disease stage IV with baseline creatinine 1.8-2 secondary to diabetic kidney disease. No hydronephrosis noted on kidney ultrasound on May 2023. Nonobstructive right renal stone was noted. 2. Left heel nonhealing ulcer with osteomyelitis status post debridement. On IV antibiotics. ID following. 3. Diabetes mellitus. 4. Coronary artery disease status post CABG and stent placement. 5. Hypertension with chronic kidney disease. 6. Chronic systolic CHF with ejection fraction of 30 to 35% and mild pulmonary hypertension noted on echocardiogram done May 2023. Plan: Encouraged oral intake. Avoid nephrotoxins. Increase losartan to 50 mg twice daily. Maintain torsemide. Continue to monitor renal function and urine output. Follow-up outpatient 1 week postdischarge.
--- NOTE | 2023-08-09 09:16 | XR ---
EXAMINATION TYPE: XR chest 1V DATE OF EXAM: 08/09/2023 COMPARISON: 08/05/2023 INDICATION: PICC placement TECHNIQUE: Single frontal view of the chest is obtained. FINDINGS: The heart size is enlarged. The pulmonary vasculature is prominent. Diffuse increased lung markings are present bilaterally greater at the lung bases. There is silhouett ing the left diaphragm. Small effusion is not excluded. There is a right-sided PICC line present with the tip in the distal superior vena cava region. IMPRESSION: 1. Cardiomegaly with prominent pulmonary vascular markings and increased lung markings bilaterally. C orrelate for volume overload. Small left pleural effusion should be considered. Follow-up is recommen ded.
[2023-08-09] MEDS: LOSARTAN 50 MG TAB PO SCH (09:46)
--- NOTE | 2023-08-09 11:00 | P.PN ---
Subjective HISTORY OF PRESENT ILLNESS: Patient examined this morning at the bedside. Patient currently denies chest pain or pressure. He denies shortness of breath. Patient's blood pressures are high this morning with a reading of 182/122. Telemetry reveals atrial fibrillation/flutter with controlled ventricular rate. PHYSICAL EXAM: VITAL SIGNS: Reviewed. GENERAL: Well-developed in no acute distress. NECK: Supple. No JVD or thyromegaly LUNGS: Respirations even and unlabored. Lungs essentially clear to auscultation bilaterally. HEART: Irregular rate and rhythm. S1 and S2 heard. EXTREMITIES: Normal range of motion. No clubbing or cyanosis. Peripheral pulses intact. No lower extremity edema ASSESSMENT: Possible urinary tract infection Persistent atrial fibrillation/typical atrial flutter, currently rate controlled Generalized weakness and fatigue Coronary artery disease with previous CABG and PCI Hypertension, currently not controlled Hyperlipidemia Diabetes Left heel unstageable ulcer/diabetic foot infection with redness and concerns for surrounding cellulitis, previous cultures were + MRSA status post bedside surgical debridement Hypothyroidism PLAN: Continue telemetry monitoring Continue anticoagulation with Eliquis Continue additional cardiac medications Add hydralazine 25 mg 3 times a day for optimal blood pressure control Patient to undergo ALEXIA and cardioversion today with Dr. Chávez Further recommendations pending patient course Nurse practitioner note has been reviewed by physician. Signing provider agrees with the documented findings, assessment, and plan of care documented by [facility] [employer] as a scribe. Objective - Vital Signs Vital signs: Vital Signs Temp 97.6 F 08/09/23 07:35 Pulse 86 08/09/23 07:35 Resp 18 08/09/23 07:35 BP 182/122 08/09/23 07:35 Pulse Ox 94 L 08/09/23 07:35 FiO2 21 08/07/23 08:50 Intake & Output 08/08/23 08/09/23 08/09/23 18:59 06:59 18:59 Output Total 1 Balance -1 Output: Stool 1 Other: Voiding Method Bedside Commode Bedside Commode Diaper Diaper Incontinent Incontinent # Voids 2 1 # Bowel Movements 1 - Labs CBC & Chem 7: 08/09/23 06:37 08/08/23 04:27 Labs: Abnormal Lab Results - Last 24 Hours (Table) 08/08/23 08/08/23 08/08/23 Range/Units 04:27 04:27 12:25 RBC 3.44 L (4.40-5.60) X 10*6/uL Hgb 9.6 L (13.0-17.0) g/dL Hct 31.6 L (39.6-50.0) % MCHC 30.4 L (32.0-37.0) g/dL RDW 15.1 H (11.5-14.5) % Lymphocytes # 0.67 L (0.90-5.00) X 10*3/uL Eosinophils # 0.44 H (0.04-0.35) X 10*3/uL Anion Gap 12.40 H (4.00-12.00) mmol/L Creatinine 1.7 H (0.6-1.5) mg/dL Est GFR (CKD-EPI) 44 L (>=60) Glucose 115 H (70-110) mg/dL POC Glucose (mg/dL) 134 H (70-110) mg/dL Calcium 8.3 L (8.7-10.3) mg/dL 08/08/23 08/09/23 08/09/23 Range/Units 17:11 06:17 06:37 RBC 3.48 L (4.40-5.60) X 10*6/uL Hgb 10.1 L (13.0-17.0) g/dL Hct 33.4 L (39.6-50.0) % MCHC 30.1 L (32.0-37.0) g/dL RDW (11.5-14.5) % Lymphocytes # 0.5 L (0.90-5.00) X 10*3/uL Eosinophils # (0.04-0.35) X 10*3/uL Anion Gap (4.00-12.00) mmol/L Creatinine (0.6-1.5) mg/dL Est GFR (CKD-EPI) (>=60) Glucose (70-110) mg/dL POC Glucose (mg/dL) 117 H 167 H (70-110) mg/dL Calcium (8.7-10.3) mg/dL
[2023-08-09 11:13] LABS: BUN/Creat Ratio 12.79 Ratio (12.00-20.00); Blood Urea Nitrogen 24.3 mg/dL (9.0-27.0); Calcium 8.4 mg/dL (8.7-10.3); Carbon Dioxide 19.5 mmol/L (21.6-31.8); Chloride 101 mmol/L (96-109); Glucose 154 mg/dL (70-110); Potassium 4.2 mmol/L (3.5-5.5); Sodium 139 mmol/L (135-145)
[2023-08-09 11:54] LABS: Glucose,Whole Blood 146 mg/dL (70-110)
--- NOTE | 2023-08-09 12:31 | P.PN ---
Subjective Progress Note Date: 08/07/23 67-year-old male presents to the emergency department for evaluation of generalized weakness. Patient states that he was just discharged from [facility] today. He states that he got home and was unable to ambulate. He is concerned because he is unable to take care of himself. He does report that she is s upposed to be getting a wheelchair and other devices but he would not receive them until Wednesday. He states that he was not able to ambulate while in [facility]. He was there for rehab for a foot infection. He was receiving IV antibiotics for approximately 1 month. Blood work completed in ED reveals a WBC of 8.7, hemoglobin of 10.8 and platelet count of 242, sodium 134, potassium 5.2, BUNs/creatinine of 27/1.96 which is trended up to 1.4-1.5 baseline and blood glucose of 123 UA is unremarkable except positive for large amount of leukocyte esterase 08/02/2023 Patient is seen in follow-up this morning currently lying in the bed with infectious disease following maintained on IV antibiotics. Left wound of the heel with some eschar noted will consult vascular surgery Dr. Galindo for possible bedside debridement with deep tissue cultures. Patient has been in and out of the hospital multiple times for infection and cellulitis. Patient resides at an [facility] and plans to return there. Patient currently afebrile with no reports of chest pain or shortness of breath. Patient reports not watching her diet with occasional nausea and no vomiting. 08/03/2023 Patient seen in follow-up today maintained on daptomycin with infectious disease following. Preliminary culture showing gram-negative bacilli and patient is status post bedside surgical debridement with vascular surgery. Will continue w [facility] local wound care and offloading of these lower extremities. PT/OT therapy to evaluate as patient will most likely need continued rehab for strength and mobility. Patient with significant weakness was discharged from [facility] went home for 1 day and had to return to the hospital with inability to ambulate and care for himself. Patient is afebrile with no reports of chest pain or worsening shortness of breath. Wean FiO2 as tolerated. Patient reports not much of an appetite. Will consult dietary for input and recommendations. 08/04/2023 Patient is seen in follow-up today with vascular surgery and infectious disease following. Cultures preliminary showing gram-negative bacilli and awaiting finalized cultures to determine discharge antibiotics. Patient has had previous intravenous antibiotics in the outpatient setting. Patient will likely need a PICC line on discharge with continued IV antibiotic therapy. Per social work is following arranging discharge planning needs, patient has no time left available at [facility] and will be going home with home care. Continue local wound care and vascular surgery following and will be changing dressings today on the left heel. 08/05/2023 Patient seen and evaluated in follow-up with multiple medical consultations following. Patient is maintained on antibiotics and will likely receive a PICC line today after nephrology clearance his kidney functions are mildly elevated. Patient to continue with wound care and elevating lower extremity while at rest. Dressing changed by vascular surgery today and will need follow-up in the clinic. Patient was tentatively scheduled outpatient for ALEXIA with cardioversion for history of atrial fibrillation and will consult cardiology Dr. Chávez for evaluation. Patient is afebrile with no reports of chest pain or shortness of breath. Patient is maintained on 2 L via nasal cannula and does not wear oxygen outpatient. Discussed with patient along with nursing staff about weaning FiO2 as tolerated. Recommend PT/OT therapy daily. Social work is following as patient apparently has no further days available at [facility] although is significantly weak has had multiple prolonged hospitalizations and appears to be unable to care for himself. Social work also looking into as patient reports Medicaid was applied for. Patient without much of an appetite have consulted dietary. Encouraged oral intake and will continue to monitor sugars closely. Blood sugars have been on the lower side. 08/06/2023 Patient is seen in follow-up today with infectious disease, nephrology, vascular surgery, pulmonology following. Patient is maintained on antibiotics and has received a PICC line and is maintained on gentle IV hydration kidney function slightly improving and will continue with gentle hydration and follow-up on repeat labs. Cardiology was consulted as patient was following with Dr. Chávez outpatient scheduled for a ALEXIA with cardioversion today and awaiting his recommendations regarding this. Patient to continue with local wound care and dressing changes and elevating lower extremities while at rest. Patient will likely continue on IV antibiotics in the outpatient setting along with clos e outpatient follow-up with the wound care center with Dr. Galindo. Patient is afebrile with no reports of chest pain or shortness of breath. Patient reports tolerating diet and encouraged oral intake. Patient reports not much of an appetite. Blood sugars being monitored and will continue current regimen. 08/07/2023 Patient is currently resting in bed. Awake alert and oriented x 3. No compla ints of chest pain or shortness of breath. Denies any dizziness or lightheadedness. Continues to have generalized weakness patient continues to be in atrial flutter with heart rate around 100.. Increase the dose of losartan and Coreg due to uncontrolled blood pressure. Patient is scheduled for ALEXIA cardioversion on Wednesday. Cardiology is on board. Laboratory data showed WBC 6.3 hemoglobin 9.8 and platelets 197, sodium 136 potassium 3.9 chloride 104 BUN 23 and creatinine 1.64 and blood sugar 68 and calcium 6.4. Review of systems: Constitutional: No reports of fatigue, fever, or chills Cardiovascular: No reports of chest pain or palpitations Respiratory: No reports of worsening shortness of breath, occasional cough GI: reports of nausea, no vomiting, or diarrhea reports not much of an appetite : No reports of dysuria or retention Neurovascular: reports of generalized weakness All medications have been reviewed Physical exam: Gen: This is a 67-year-old male who is awake, alert and oriented x 3, well- developed, elderly appearing, ill-appearing, obese HEENT: Head is atraumatic, normocephalic. Pupils equal, round. Sclerae is anicteric. NECK: Supple. No JVD. No lymphadenopathy. No thyromegaly. LUNGS: Diminished breath sounds bilaterally otherwise clear to auscultation. No wheezes or rhonchi. No intercostal retractions. HEART: S1, S2 are muffled ABDOMEN: Soft. Bowel sounds are present. No masses. No tenderness. EXTREMITIES: No pedal edema. No calf tenderness. Left heel surgical dressing is dry and intact NEUROLOGICAL: Patient is awake, alert and oriented x3. Cranial nerves 2 through 12 are grossly intact. Diffusely weak Assessment: -Persistent atrial flutter/atrial tachycardia -Acute on chronic kidney disease stage III -Left heel unstageable ulcer/diabetic foot infection with redness and concerns for surrounding cellulitis, present on admission, previous cultures were MRSA status post bedside surgical debridement -Weakness/debility; patient was discharged from skilled rehab 24 hours prior to presenting to ED; we will consult PT/OT, patient will likely need rehab on discharge for continued strengthening -Possible UTI; present on admission, ruled out, likely asymptomatic bacteriuria -Hypertension -Hyperlipidemia -Diabetes mellitus with long-term insulin use; uncontrolled with hypoglycemia -Hypothyroidism -Paroxysmal atrial fibrillation; currently rate controlled -CAD, status post CABG and heart catheterization with stent placement -Chronic back pain -DVT prophylaxis; SCDs/subcu heparin -GI prophylaxis -full code Plan: Patient is scheduled for ALEXIA cardioversion on Wednesday. Patient was recently discharged from [facility] and came back in shortly thereafter for concerns of left lower extremity surrounding cellulitis of an unstageable heel wound with eschar noted. Vascular surgery Dr. Galindo evaluated and is status post debridement with deep tissue cultures. Infectious diseases following and will continue on daptomycin. Patient will receive a PICC line on discharge for continued IV antibiotic therapy. Okay per nephrology Consult to PT/OT therapy as patient is significantly weak and was recently discharged from ECF although unable to take care of himself and unable to ambulate. Social work following and patient is out of days for ECF and will be returning home with home care. Apparently Medicaid was applied for although unknown status at this time and social work is working on looking into this. Patient will be significantly high risk for readmissions as he is debilitated and unable to care for his wounds and generalized care on his own. Continue local wound care per vascular and infectious disease Recommend aspiration precautions and head of the bed elevated 30 to 45 degrees and supervision with meals. Patient without much of an appetite will consult dietary Will follow-up on repeat labs and monitor kidney functions. Replace electrolytes per protocol Blood pressures remain elevated and will adjust medications, use hydralazine as needed Continue monitoring Accu-Cheks before meals and at bedtime and will continue wit h sliding scale and adjust insulins accordingly. Encouraged oral intake Due to multiple complex medical issues, prognosis is guarded Case management/social work regarding discharge planning. Objective - Vital Signs Vital signs: Vital Signs Temp 97.6 F 08/07/23 14:58 Pulse 65 08/07/23 14:58 Resp 16 08/07/23 14:58 BP 165/77 08/07/23 14:58 Pulse Ox 97 08/07/23 14:58 FiO2 21 08/07/23 08:50 Intake & Output 08/07/23 08/07/23 08/08/23 06:59 18:59 06:59 Output Total 2 200 Balance -2 -200 Output: Urine 200 Stool 2 Other: Voiding Method Bedside Commode Diaper Incontinent # Voids 1 1 # Bowel Movements 1 - Labs CBC & Chem 7: 08/09/23 06:37 08/09/23 06:37 Labs: Abnormal Lab Results - Last 24 Hours (Table) 08/07/23 08/07/23 08/07/23 Range/Units 06:47 06:47 11:52 RBC 3.52 L (4.40-5.60) X 10*6/uL Hgb 9.8 L (13.0-17.0) g/dL Hct 33.5 L (39.6-50.0) % MCHC 29.3 L (32.0-37.0) g/dL RDW 15.2 H (11.5-14.5) % Eosinophils # 0.56 H (0.04-0.35) X 10*3/uL Sodium 136 L (137-145) mmol/L BUN 23 H (9-20) mg/dL Creatinine 1.64 H (0.66-1.25) mg/dL Glucose 68 L (74-99) mg/dL POC Glucose (mg/dL) 66 L (70-110) mg/dL
--- NOTE | 2023-08-09 12:32 | P.PN ---
Subjective Progress Note Date: 08/08/23 67-year-old male presents to the emergency department for evaluation of generalized weakness. Patient states that he was just discharged from [facility] today. He states that he got home and was unable to ambulate. He is concerned because he is unable to take care of himself. He does report that she is s upposed to be getting a wheelchair and other devices but he would not receive them until Wednesday. He states that he was not able to ambulate while in [facility]. He was there for rehab for a foot infection. He was receiving IV antibiotics for approximately 1 month. Blood work completed in ED reveals a WBC of 8.7, hemoglobin of 10.8 and platelet count of 242, sodium 134, potassium 5.2, BUNs/creatinine of 27/1.96 which is trended up to 1.4-1.5 baseline and blood glucose of 123 UA is unremarkable except positive for large amount of leukocyte esterase 08/02/2023 Patient is seen in follow-up this morning currently lying in the bed with infectious disease following maintained on IV antibiotics. Left wound of the heel with some eschar noted will consult vascular surgery Dr. Galindo for possible bedside debridement with deep tissue cultures. Patient has been in and out of the hospital multiple times for infection and cellulitis. Patient resides at an [facility] and plans to return there. Patient currently afebrile with no reports of chest pain or shortness of breath. Patient reports not watching her diet with occasional nausea and no vomiting. 08/03/2023 Patient seen in follow-up today maintained on daptomycin with infectious disease following. Preliminary culture showing gram-negative bacilli and patient is status post bedside surgical debridement with vascular surgery. Will continue w [facility] local wound care and offloading of these lower extremities. PT/OT therapy to evaluate as patient will most likely need continued rehab for strength and mobility. Patient with significant weakness was discharged from [facility] went home for 1 day and had to return to the hospital with inability to ambulate and care for himself. Patient is afebrile with no reports of chest pain or worsening shortness of breath. Wean FiO2 as tolerated. Patient reports not much of an appetite. Will consult dietary for input and recommendations. 08/04/2023 Patient is seen in follow-up today with vascular surgery and infectious disease following. Cultures preliminary showing gram-negative bacilli and awaiting finalized cultures to determine discharge antibiotics. Patient has had previous intravenous antibiotics in the outpatient setting. Patient will likely need a PICC line on discharge with continued IV antibiotic therapy. Per social work is following arranging discharge planning needs, patient has no time left available at [facility] and will be going home with home care. Continue local wound care and vascular surgery following and will be changing dressings today on the left heel. 08/05/2023 Patient seen and evaluated in follow-up with multiple medical consultations following. Patient is maintained on antibiotics and will likely receive a PICC line today after nephrology clearance his kidney functions are mildly elevated. Patient to continue with wound care and elevating lower extremity while at rest. Dressing changed by vascular surgery today and will need follow-up in the clinic. Patient was tentatively scheduled outpatient for ALEXIA with cardioversion for history of atrial fibrillation and will consult cardiology Dr. Chávez for evaluation. Patient is afebrile with no reports of chest pain or shortness of breath. Patient is maintained on 2 L via nasal cannula and does not wear oxygen outpatient. Discussed with patient along with nursing staff about weaning FiO2 as tolerated. Recommend PT/OT therapy daily. Social work is following as patient apparently has no further days available at [facility] although is significantly weak has had multiple prolonged hospitalizations and appears to be unable to care for himself. Social work also looking into as patient reports Medicaid was applied for. Patient without much of an appetite have consulted dietary. Encouraged oral intake and will continue to monitor sugars closely. Blood sugars have been on the lower side. 08/06/2023 Patient is seen in follow-up today with infectious disease, nephrology, vascular surgery, pulmonology following. Patient is maintained on antibiotics and has received a PICC line and is maintained on gentle IV hydration kidney function slightly improving and will continue with gentle hydration and follow-up on repeat labs. Cardiology was consulted as patient was following with Dr. Chávez outpatient scheduled for a ALEXIA with cardioversion today and awaiting his recommendations regarding this. Patient to continue with local wound care and dressing changes and elevating lower extremities while at rest. Patient will likely continue on IV antibiotics in the outpatient setting along with clos e outpatient follow-up with the wound care center with Dr. Galindo. Patient is afebrile with no reports of chest pain or shortness of breath. Patient reports tolerating diet and encouraged oral intake. Patient reports not much of an appetite. Blood sugars being monitored and will continue current regimen. 08/07/2023 Patient is currently resting in bed. Awake alert and oriented x 3. No compla ints of chest pain or shortness of breath. Denies any dizziness or lightheadedness. Continues to have generalized weakness patient continues to be in atrial flutter with heart rate around 100.. Increase the dose of losartan and Coreg due to uncontrolled blood pressure. Patient is scheduled for ALEXIA cardioversion on Wednesday. Cardiology is on board. Laboratory data showed WBC 6.3 hemoglobin 9.8 and platelets 197, sodium 136 potassium 3.9 chloride 104 BUN 23 and creatinine 1.64 and blood sugar 68 and calcium 6.4. 08/08/2023 Patient is resting in the bed. Awake alert and oriented x 3. Blood pressure is better controlled. No complaints of chest pain or shortness of breath. Still having generalized weakness. Heart rate is also better controlled. Cardiology is planning for ALEXIA cardioversion on Wednesday. N.p.o. after midnight. Laboratory data showed WBC 7.2 hemoglobin 9.6 and platelets 166, sodium 140 potassium 4.0 chloride 103 bicarb is 24.6 BUN 20.4 and creatinine 1.7 and blood sugar 115 and calcium 8.3 Patient is on anticoagulation with Eliquis. Patient is also on torsemide 10 mg p.o. daily. Review of systems: Constitutional: No reports of fatigue, fever, or chills Cardiovascular: No reports of chest pain or palpitations Respiratory: No reports of worsening shortness of breath, occasional cough GI: reports of nausea, no vomiting, or diarrhea reports not much of an appetite : No reports of dysuria or retention Neurovascular: reports of generalized weakness All medications have been reviewed Physical exam: Gen: This is a 67-year-old male who is awake, alert and oriented x 3, well- developed, elderly appearing, ill-appearing, obese HEENT: Head is atraumatic, normocephalic. Pupils equal, round. Sclerae is anicteric. NECK: Supple. No JVD. No lymphadenopathy. No thyromegaly. LUNGS: Diminished breath sounds bilaterally otherwise clear to auscultation. No wheezes or rhonchi. No intercostal retractions. HEART: S1, S2 are muffled ABDOMEN: Soft. Bowel sounds are present. No masses. No tenderness. EXTREMITIES: No pedal edema. No calf tenderness. Left heel surgical dressing is dry and intact NEUROLOGICAL: Patient is awake, alert and oriented x3. Cranial nerves 2 through 12 are grossly intact. Diffusely weak Assessment: -Persistent atrial flutter/atrial tachycardia -Acute on chronic kidney disease stage III -Left heel unstageable ulcer/diabetic foot infection with redness and concerns for surrounding cellulitis, present on admission, previous cultures were MRSA status post bedside surgical debridement -Weakness/debility; patient was discharged from skilled rehab 24 hours prior to presenting to ED; we will consult PT/OT, patient will likely need rehab on discharge for continued strengthening -Possible UTI; present on admission, ruled out, likely asymptomatic bacteriuria -Hypertension -Hyperlipidemia -Diabetes mellitus with long-term insulin use; uncontrolled with hypoglycemia -Hypothyroidism -Paroxysmal atrial fibrillation; currently rate controlled -CAD, status post CABG and heart catheterization with stent placement -Chronic back pain -DVT prophylaxis; SCDs/subcu heparin -GI prophylaxis -full code Plan: Patient is scheduled for ALEXIA cardioversion on Wednesday. Patient was recently discharged from [facility] and came back in shortly thereafter for concerns of left lower extremity surrounding cellulitis of an unstageable heel wound with eschar noted. Vascular surgery Dr. Galindo evaluated and is status post debridement with deep tissue cultures. Infectious diseases following and will continue on daptomycin. Patient will receive a PICC line on discharge for continued IV antibiotic therapy. Okay per nephrology Consult to PT/OT therapy as patient is significantly weak and was recently discharged from [facility] although unable to take care of himself and unable to ambulate. Social work following and patient is out of days for ECF and will be returning home with home care. Apparently Medicaid was applied for although unknown status at this time and social work is working on looking into this. Patient will be significantly high risk for readmissions as he is debilitated and unable to care for his wounds and generalized care on his own. Continue local wound care per vascular and infectious disease Recommend aspiration precautions and head of the bed elevated 30 to 45 degrees and supervision with meals. Patient without much of an appetite will consult dietary Will follow-up on repeat labs and monitor kidney functions. Replace electrolytes per protocol Blood pressures remain elevated and will adjust medications, use hydralazine as needed Continue monitoring Accu-Cheks before meals and at bedtime and will continue with sliding scale and adjust insulins accordingly. Encouraged oral intake Due to multiple complex medical issues, prognosis is guarded Case management/social work regarding discharge planning. Objective - Vital Signs Vital signs: Vital Signs Temp 97.6 F 08/08/23 07:00 Pulse 92 08/08/23 07:00 Resp 16 08/08/23 07:00 BP 145/97 08/08/23 07:00 Pulse Ox 93 L 08/08/23 07:00 FiO2 21 08/07/23 08:50 Intake & Output 08/07/23 08/08/23 08/08/23 18:59 06:59 18:59 Output Total 200 2 Balance -200 -2 Output: Urine 200 Stool 2 Other: Voiding Method Bedside Commode Diaper Incontinent # Voids 1 1 1 # Bowel Movements 1 - Labs CBC & Chem 7: 08/09/23 06:37 08/09/23 06:37 Labs: Abnormal Lab Results - Last 24 Hours (Table) 08/07/23 08/08/23 08/08/23 Range/Units 11:52 04:27 04:27 RBC 3.44 L (4.40-5.60) X 10*6/uL Hgb 9.6 L (13.0-17.0) g/dL Hct 31.6 L (39.6-50.0) % MCHC 30.4 L (32.0-37.0) g/dL RDW 15.1 H (11.5-14.5) % Lymphocytes # 0.67 L (0.90-5.00) X 10*3/uL Eosinophils # 0.44 H (0.04-0.35) X 10*3/uL Anion Gap 12.40 H (4.00-12.00) mmol/L Creatinine 1.7 H (0.6-1.5) mg/dL Est GFR (CKD-EPI) 44 L (>=60) Glucose 115 H (70-110) mg/dL POC Glucose (mg/dL) 66 L (70-110) mg/dL Calcium 8.3 L (8.7-10.3) mg/dL 08/08/23 Range/Units 05:26 RBC (4.40-5.60) X 10*6/uL Hgb (13.0-17.0) g/dL Hct (39.6-50.0) % MCHC (32.0-37.0) g/dL RDW (11.5-14.5) % Lymphocytes # (0.90-5.00) X 10*3/uL Eosinophils # (0.04-0.35) X 10*3/uL Anion Gap (4.00-12.00) mmol/L Creatinine (0.6-1.5) mg/dL Est GFR (CKD-EPI) (>=60) Glucose (70-110) mg/dL POC Glucose (mg/dL) 121 H (70-110) mg/dL Calcium (8.7-10.3) mg/dL
[2023-08-09] MEDS: IV FLUID CONTINUATION 1,000 ML IV ONE (13:01)
[2023-08-09] MEDS: hydrALAZINE HCL 25 MG TAB PO SCH (13:09)
[2023-08-09] MEDS ORDERED: LIDOCAINE 1% INJ 10MG/ML (20 ML MDV) ONE (13:18)
[2023-08-09] MEDS: BENZOCAINE SPRAY 1 CAN TOPICAL ONE (13:18)
[2023-08-09] MEDS ORDERED: PROPOFOL 10 MG/ML 20 ML VIAL IV ONE (13:18)
--- NOTE | 2023-08-09 13:35 | P.TEE ---
Description of Procedure(s): Procedure performed: Transesophageal Echocardiogram with color flow doppler, pulsed wave doppler and continuous wave doppler, synchronized cardioversion Moderate conscious sedation: Moderate conscious sedation was supplied by anesthesia, see separate report. Complications: none Indications: Afib PROCEDURE: After the risks, benefits and alternatives of the above mentioned procedure was explained in detail with the patient, informed consent was obtained. Patient was brought to the lab in a fasting state. Patient was given sedation by anesthesia, see separate report. The throat was sprayed with Hurricane to anesthetize the throat. A lubricated Omni probe was then introduced into the esophagus and stomach and multiple views were obtained. 2D echo with color flow doppler, pulsed wave doppler and continuous wave doppler was utilized. Agitated saline bubbles were injected to assess for any intra- atrial shunt. The probe was then removed. There was no thrombus noted and therefore patient underwent synchronized cardioversion x 1 with 200J with resultant sinus rhythm. Patient tolerated the procedure well. Patient was transferred to the post procedure area in stable and satisfactory condition. FINDINGS: 1. The aortic valve is tricuspid and function normally. 2. The mitral valve appears be normal with mild regurgitation. 3. Tricuspid valve appears to be normal. 4. The interatrial septum is intact. No evidence of PFO. 5. Left atrial appendage is free of clot. 6. Left ventricular EF 25-30%
[2023-08-09 17:21] LABS: Glucose,Whole Blood 141 mg/dL (70-110)
--- NOTE | 2023-08-09 17:52 | P.PN ---
Subjective Progress Note Date: 08/09/23 Principal diagnosis: Reason for follow-up is left heel infected wound Patient is a 61-year-old male with a past medical history significant for diabetes mellitus hypertension hyperlipidemia hypothyroidism patient did have a history of diabetic foot ulcer osteomyelitis with recent culture positive for MRSA back in May 2023 that has been treated with a course of IV v ancomycin, presented back to the hospital with weakness and manager ambulatory of himself. Patient has been evaluated by vascular surgery and did have debridement of his wound to the left heel cultures obtained did not mention any extension down to the wound. On today's evaluation that is 08/09/2023, the patient continues to be afebrile, the patient is on room air and breathing comfortably, the Pt denies having any chest pain he did have some cough but not bring up any sputum h, the patient denies having any abdominal pain no vomiting or any diarrhea, denies any worsening pain to the left heel wound area. Patient white count is 6.4, creatinine is 1.9 Objective - Vital Signs Vital signs: Vital Signs Temp 97.6 F 08/09/23 07:35 Pulse 83 08/09/23 12:53 Resp 16 08/09/23 12:53 BP 200/91 08/09/23 12:53 Pulse Ox 96 08/09/23 12:53 FiO2 21 08/07/23 08:50 Intake & Output 08/08/23 08/09/23 08/09/23 18:59 06:59 18:59 Output Total 1 Balance -1 Output: Stool 1 Other: Voiding Method Bedside Commode Bedside Commode Diaper Diaper Incontinent Incontinent # Voids 2 1 # Bowel Movements 1 - Exam GENERAL DESCRIPTION: An elderly male lying in bed in no distress RESPIRATORY SYSTEM: Unlabored breathing , decreased breath sounds at bases HEART: S1 S2 regular rate and rhythm , ABDOMEN: Soft , no tenderness EXTREMITIES: Left heel wound with slough tissue minimal surrounding swelling and redness - Labs CBC & Chem 7: 08/09/23 06:37 08/09/23 06:37 Labs: Abnormal Lab Results - Last 24 Hours (Table) 08/08/23 08/09/23 08/09/23 Range/Units 17:11 : 06:37 RBC 3.48 L (4.30-5.90) m/uL Hgb 10.1 L (13.0-17.5) gm/dL Hct 33.4 L (39.0-53.0) % MCHC 30.1 L (31.0-37.0) g/dL Lymphocytes # 0.5 L (1.0-4.8) k/uL Carbon Dioxide (21.6-31.8) mmol/L Anion Gap (4.00-12.00) mmol/L Creatinine (0.6-1.5) mg/dL Est GFR (CKD-EPI) (>=60) Glucose (70-110) mg/dL POC Glucose (mg/dL) 117 H 167 H (70-110) mg/dL Calcium (8.7-10.3) mg/dL 08/09/23 08/09/23 Range/Units 06:37 11:53 RBC (4.30-5.90) m/uL Hgb (13.0-17.5) gm/dL Hct (39.0-53.0) % MCHC (31.0-37.0) g/dL Lymphocytes # (1.0-4.8) k/uL Carbon Dioxide 19.5 L (21.6-31.8) mmol/L Anion Gap 18.50 H (4.00-12.00) mmol/L Creatinine 1.9 H (0.6-1.5) mg/dL Est GFR (CKD-EPI) 38 L (>=60) Glucose 154 H (70-110) mg/dL POC Glucose (mg/dL) 146 H (70-110) mg/dL Calcium 8.4 L (8.7-10.3) mg/dL Assessment and Plan (1) Cellulitis of left foot Current Visit: No Status: Acute Code(s): L03.116 - CELLULITIS OF LEFT LOWER LIMB SNOMED Code(s): 02656245551059482 (2) Diabetic foot ulcer Current Visit: No Status: Acute Code(s): E11.621 - TYPE 2 DIABETES MELLITUS WITH FOOT ULCER; L97.509 - NON-PRESSURE CHRONIC ULCER OTH PRT UNSP FOOT W UNSP SEVERITY SNOMED Code(s): 543410593 (3) Penicillin allergy Current Visit: No Status: Acute Code(s): Z88.0 - ALLERGY STATUS TO PENICILLIN SNOMED Code(s): 79053117 Plan: 1patient with a left heel unstageable pressure ulcer/diabetic foot ulcer with secondary infection and concern for secondary cellulitis as there was erythema around the area of the eschar we will need to cover for the gram-positive skin f mike to be the likely pathogen with the last culture positive for MRSA 2-penicillin allergy that will limit the number of antibiotics safe to use 3-patient has been evaluated by vascular surgery and status post debridement of the wound and deep culture which are currently growing Proteus Christina and staph epi, discussed with the vascular surgery as the patient will benefit from further debridement which was done at the bedside again today on 08/09/2023 4-patient to continue with Rocephin 2 g daily and monitor clinical course closely Dictation was produced using Van[employer] dictation software. please excuse any grammatical, word or spelling errors. Time with Patient: Less than 30
[2023-08-09 21:25] LABS: Glucose,Whole Blood 132 mg/dL (70-110)
--- NOTE | 2023-08-09 22:40 | PN ---
PROGRESS NOTE SUBJECTIVE: A 67-year-old gentleman with history of diabetes mellitus, hypertension. The patient has left infected wound which we did the debridement. The patient under care of Infectious Disease. We have been treating with Medihoney gel today. We excised the devitalized tissue. Dressing was changed with Medihoney gel, will change the dressing tomorrow. The patient has no fever or chills present. The patient has history of MRSA in the past, under care of Infectious Disease. MMODL / IJN: [id number] /
--- NOTE | 2023-08-10 05:39 | P.PN ---
Subjective Progress Note Date: 08/09/23 67-year-old male presents to the emergency department for evaluation of generalized weakness. Patient states that he was just discharged from [facility] today. He states that he got home and was unable to ambulate. He is concerned because he is unable to take care of himself. He does report that she is supposed to be getting a wheelchair and other devices but he would not receive them until Wednesday. He states that he was not able to ambulate while in [facility]. He was there for rehab for a foot infection. He was receiving IV antibiotics for approximately 1 month. Blood work completed in ED reveals a WBC of 8.7, hemoglobin of 10.8 and platelet count of 242, sodium 134, potassium 5.2, BUNs/creatinine of 27/1.96 which is trended up to 1.4-1.5 baseline and blood glucose of 123 UA is unremarkable except positive for large amount of leukocyte esterase 08/02/2023 Patient is seen in follow-up this morning currently lying in the bed with infectious disease following maintained on IV antibiotics. Left wound of the heel with some eschar noted will consult vascular surgery Dr. Galindo for possible bedside debridement with deep tissue cultures. Patient has been in and out of the hospital multiple times for infection and cellulitis. Patient resides at an [facility] and plans to return there. Patient currently afebrile with no reports of chest pain or shortness of breath. Patient reports not watching her diet with occasional nausea and no vomiting. 08/03/2023 Patient seen in follow-up today maintained on daptomycin with infectious disease following. Preliminary culture showing gram-negative bacilli and patient is status post bedside surgical debridement with vascular surgery. Will continue with local wound care and offloading of these lower extremities. PT/OT therapy to evaluate as patient will most likely need continued rehab for strength and mobility. Patient with significant weakness was discharged from [facility] went home for 1 day and had to return to the hospital with inability to ambulate and care for himself. Patient is afebrile with no reports of chest pain or worsening shortness of breath. Wean FiO2 as tolerated. Patient reports not much of an appetite. Will consult dietary for input and recommendations. 08/04/2023 Patient is seen in follow-up today with vascular surgery and infectious disease following. Cultures preliminary showing gram-negative bacilli and awaiting finalized cultures to determine discharge antibiotics. Patient has had previous intravenous antibiotics in the outpatient setting. Patient will likely need a PICC line on discharge with continued IV antibiotic therapy. Per social work is following arranging discharge planning needs, patient has no time left available at [facility] and will be going home with home care. Continue local wound care and vascular surgery following and will be changing dressings today on the left heel. 08/05/2023 Patient seen and evaluated in follow-up with multiple medical consultations following. Patient is maintained on antibiotics and will likely receive a PICC line today after nephrology clearance his kidney functions are mildly elevated. Patient to continue with wound care and elevating lower extremity while at rest. Dressing changed by vascular surgery today and will need follow-up in the clinic. Patient was tentatively scheduled outpatient for ALEXIA with cardioversion for history of atrial fibrillation and will consult cardiology Dr. Chávez for evaluation. Patient is afebrile with no reports of chest pain or shortness of breath. Patient is maintained on 2 L via nasal cannula and does not wear oxygen outpatient. Discussed with patient along with nursing staff about weaning FiO2 as tolerated. Recommend PT/OT therapy daily. Social work is following as patient apparently has no further days available at [facility] although is significantly weak has had multiple prolonged hospitalizations and appears to be unable to care for himself. Social work also looking into as patient reports Medicaid was applied for. Patient without much of an appetite have consulted dietary. Encouraged oral intake and will continue to monitor sugars closely. Blood sugars have been on the lower side. 08/06/2023 Patient is seen in follow-up today with infectious disease, nephrology, vascular surgery, pulmonology following. Patient is maintained on antibiotics and has received a PICC line and is maintained on gentle IV hydration kidney function slightly improving and will continue with gentle hydration and follow-up on repeat labs. Cardiology was consulted as patient was following with Dr. Chávez outpatient scheduled for a ALEXIA with cardioversion today and awaiting his recommendations regarding this. Patient to continue with local wound care and dressing changes and elevating lower extremities while at rest. Patient will likely continue on IV antibiotics in the outpatient setting along with wilber se outpatient follow-up with the wound care center with Dr. Galindo. Patient is afebrile with no reports of chest pain or shortness of breath. Patient reports tolerating diet and encouraged oral intake. Patient reports not much of an appetite. Blood sugars being monitored and will continue current regimen. 08/09/2023 Patient is seen in follow-up today currently n.p.o. as patient is scheduled to undergo ALEXIA with cardioversion with Dr. Chávez. Patient is continued on IV antibiotics and apparently dislodged his previous PICC line and is receiving another one as patient will need continued IV antibiotic therapy with infectious disease following. Dr. Galindo vascular surgery to evaluate with dressing changes today. Will follow-up with repeat labs in the a.m. as kidney functions continue to be elevated. Continue gentle IV hydration. Adjust insulins accordingly and will continue to monitor Accu-Cheks before meals and at bedtime. Encouraged oral intake. Recommend PT/OT therapy daily. Social work following arranging for discharge planning. Patient has run out of long term facility days and apparently does not qualify for Medicaid and will have to return home with home care. Patient is high risk for readmissions and unable to care for himself and his extensive wounds. Patient is non-ambulatory much. Review of systems: Constitutional: No reports of fatigue, fever, or chills Cardiovascular: No reports of chest pain or palpitations Respiratory: No reports of worsening shortness of breath, occasional cough GI: No reports of nausea, no vomiting, or diarrhea reports not much of an appetite : No reports of dysuria or retention Neurovascular: reports of generalized weakness All medications have been reviewed Physical exam: Gen: This is a 67-year-old male who is awake, alert and oriented x 3, well- developed, elderly appearing, ill-appearing, obese HEENT: Head is atraumatic, normocephalic. Pupils equal, round. Sclerae is anicteric. NECK: Supple. No JVD. No lymphadenopathy. No thyromegaly. LUNGS: Diminished breath sounds bilaterally otherwise clear to auscultation. No wheezes or rhonchi. No intercostal retractions. HEART: S1, S2 are muffled ABDOMEN: Soft. Bowel sounds are present. No masses. No tenderness. EXTREMITIES: No pedal edema. No calf tenderness. Left heel surgical dressing currently being changed NEUROLOGICAL: Patient is awake, alert and oriented x3. Cranial nerves 2 through 12 are grossly intact. Diffusely weak Assessment: -Acute on chronic kidney disease stage III -Left heel unstageable ulcer/diabetic foot infection with redness and concerns for surrounding cellulitis, present on admission, previous cultures were MRSA status post bedside surgical debridement -Weakness/debility; patient was discharged from skilled rehab 24 hours prior to presenting to ED; we will consult PT/OT, patient would benefit from rehab on discharge for continued strengthening although has no remaining days and will have to go home with home care -Possible UTI; present on admission, ruled out, likely asymptomatic bacteriuria -Hypertension -Hyperlipidemia -Diabetes mellitus with long-term insulin use; uncontrolled with hypoglycemia -Hypothyroidism -Paroxysmal atrial fibrillation, scheduled to undergo ALEXIA with cardioversion today 08/09/2023 -CAD, status post CABG and heart catheterization with stent placement -Chronic back pain -DVT prophylaxis; SCDs/subcu heparin -GI prophylaxis -full code Plan: Patient was recently discharged from [facility] and came back in shortly thereafter for concerns of left lower extremity surrounding cellulitis of an unstageable heel wound with eschar noted. Vascular surgery Dr. Galindo evaluated and is status post debridement with deep tissue cultures. Infectious diseases following and will continue on daptomycin. Patient will receive another PICC line as it was apparently accidentally dislodged by patient. Patient being arranged for continued IV antibiotic therapy on discharge. Consult to PT/OT therapy as patient is significantly weak and was recently discharged from [facility] although unable to take care of himself and unable to ambulate. Social work following and patient is out of days for [facility] and will be returning home with home care. Apparently Medicaid was applied for although patient does not qualify and social work is following. Will arrange for discharge planning needs in the home. Patient is a significantly high risk for readmissions as he is debilitated and unable to care for his wounds and generalized care on his own. Continue local wound care per vascular and infectious disease Recommend aspiration precautions and head of the bed elevated 30 to 45 degrees and supervision with meals. Patient without much of an appetite will consult dietary Will follow-up on repeat labs and monitor kidney functions. Replace electrolytes per protocol Patient scheduled for cardioversion with ALEXIA today with Dr. Chávez. Will await report continue monitoring Accu-Cheks before meals and at bedtime and will continue with sliding scale and adjust insulins accordingly. Encouraged oral intake Due to multiple complex medical issues, prognosis is guarded Case management/social work regarding discharge planning. Possibly in the next 24 to 48 hours The impression and plan of care has been dictated by Elizabet Rodriguez, Nurse Practitioner as directed. Dr. Elaina MD I have performed a history and examination and MDM of this patient, discussed the same with the dictator, and agree with the dictator's assessment and plan as written ,documented as a scribe. Based on total visit time, I have performed more than 50% of the visit. Objective - Vital Signs Vital signs: Vital Signs Temp 97.6 F 08/09/23 07:35 Pulse 86 08/09/23 07:35 Resp 18 08/09/23 07:35 BP 182/122 08/09/23 07:35 Pulse Ox 94 L 08/09/23 07:35 FiO2 21 08/07/23 08:50 Intake & Output 08/08/23 08/09/23 08/09/23 18:59 06:59 18:59 Output Total 1 Balance -1 Output: Stool 1 Other: Voiding Method Bedside Commode Diaper Incontinent # Voids 2 1 # Bowel Movements 1 - Labs CBC & Chem 7: 08/09/23 06:37 08/09/23 06:37 Labs: Abnormal Lab Results - Last 24 Hours (Table) 08/08/23 08/08/23 08/08/23 Range/Units 04:27 04:27 12:25 RBC 3.44 L (4.40-5.60) X 10*6/uL Hgb 9.6 L (13.0-17.0) g/dL Hct 31.6 L (39.6-50.0) % MCHC 30.4 L (32.0-37.0) g/dL RDW 15.1 H (11.5-14.5) % Lymphocytes # 0.67 L (0.90-5.00) X 10*3/uL Eosinophils # 0.44 H (0.04-0.35) X 10*3/uL Anion Gap 12.40 H (4.00-12.00) mmol/L Creatinine 1.7 H (0.6-1.5) mg/dL Est GFR (CKD-EPI) 44 L (>=60) Glucose 115 H (70-110) mg/dL POC Glucose (mg/dL) 134 H (70-110) mg/dL Calcium 8.3 L (8.7-10.3) mg/dL 08/08/23 08/09/23 08/09/23 Range/Units 17:11 06:17 06:37 RBC 3.48 L (4.40-5.60) X 10*6/uL Hgb 10.1 L (13.0-17.0) g/dL Hct 33.4 L (39.6-50.0) % MCHC 30.1 L (32.0-37.0) g/dL RDW (11.5-14.5) % Lymphocytes # 0.5 L (0.90-5.00) X 10*3/uL Eosinophils # (0.04-0.35) X 10*3/uL Anion Gap (4.00-12.00) mmol/L Creatinine (0.6-1.5) mg/dL Est GFR (CKD-EPI) (>=60) Glucose (70-110) mg/dL POC Glucose (mg/dL) 117 H 167 H (70-110) mg/dL Calcium (8.7-10.3) mg/dL
[2023-08-10 06:22] LABS: Glucose,Whole Blood 167 mg/dL (70-110)
[2023-08-10] MEDS: AMIODARONE 200 MG TAB PO SCH (09:47)
--- NOTE | 2023-08-10 10:12 | P.PN ---
Subjective HISTORY OF PRESENT ILLNESS: Patient examined this morning at the bedside. Patient currently denies chest pain or pressure. He denies shortness of breath. Patient's blood pressures are high this morning with a reading of 182/122. Telemetry reveals atrial fibrillation/flutter with controlled ventricular rate. 08/10/2023 Patient examined this morning at the bedside. He is status post ALEXIA and cardioversion yesterday with Dr. Chávez. He is maintaining sinus bradycardia this morning with heart in the 50s. He denies any dizziness or lightheadedness. Denies chest pain or pressure. Denies shortness of breath. PHYSICAL EXAM: VITAL SIGNS: Reviewed. GENERAL: Well-developed in no acute distress. NECK: Supple. No JVD or thyromegaly LUNGS: Respirations even and unlabored. Lungs essentially clear to auscultation bilaterally. HEART: Regular rate and rhythm. S1 and S2 heard. EXTREMITIES: Normal range of motion. No clubbing or cyanosis. Peripheral pulses intact. No lower extremity edema ASSESSMENT: Possible urinary tract infection Persistent atrial fibrillation/typical atrial flutter, currently rate controlled Generalized weakness and fatigue Coronary artery disease with previous CABG and PCI Hypertension, currently not controlled Hyperlipidemia Diabetes Left heel unstageable ulcer/diabetic foot infection with redness and concerns for surrounding cellulitis, previous cultures were + MRSA status post bedside surgical debridement Hypothyroidism PLAN: Continue current cardiac medications Increase hydralazine to 50 mg 3 times a day for optimal blood pressure control Patient is currently stable from a cardiac standpoint with no further inpatient recommendations We will sign off. Please reconsult if needed. Nurse practitioner note has been reviewed by physician. Signing provider agrees with the documented findings, assessment, and plan of care documented by MASKING MACHINE OPERATOR as a scribe. Objective - Vital Signs Vital signs: Vital Signs Temp 97.3 F L 08/10/23 07:45 Pulse 61 08/10/23 07:45 Resp 17 08/10/23 07:45 BP 172/77 08/10/23 07:45 Pulse Ox 94 L 08/10/23 07:45 FiO2 21 08/07/23 08:50 Intake & Output 08/09/23 08/10/23 08/10/23 18:59 06:59 18:59 Intake Total 100 Output Total 325 Balance 100 -325 Intake: IV 100 Output: Urine 325 Other: Voiding Method Bedside Commode Bedside Commode Bedside Commode Diaper Diaper Diaper Incontinent Incontinent Incontinent # Voids 1 # Bowel Movements 1 - Labs CBC & Chem 7: 08/09/23 06:37 08/09/23 06:37 Labs: Abnormal Lab Results - Last 24 Hours (Table) 08/09/23 08/09/23 08/09/23 Range/Units 06:37 11:53 17:20 Carbon Dioxide 19.5 L (21.6-31.8) mmol/L Anion Gap 18.50 H (4.00-12.00) mmol/L Creatinine 1.9 H (0.6-1.5) mg/dL Est GFR (CKD-EPI) 38 L (>=60) Glucose 154 H (70-110) mg/dL POC Glucose (mg/dL) 146 H 141 H (70-110) mg/dL Calcium 8.4 L (8.7-10.3) mg/dL 08/09/23 08/10/23 Range/Units 21:25 06:21 Carbon Dioxide (21.6-31.8) mmol/L Anion Gap (4.00-12.00) mmol/L Creatinine (0.6-1.5) mg/dL Est GFR (CKD-EPI) (>=60) Glucose (70-110) mg/dL POC Glucose (mg/dL) 132 H 167 H (70-110) mg/dL Calcium (8.7-10.3) mg/dL
--- NOTE | 2023-08-10 10:53 | P.PN ---
Subjective Patient is seen in follow-up for chronic kidney disease. Renal function fairly stable this admission. Oral intake fair. No vomiting or diarrhea. Vital signs are stable. General: No acute distress. HEENT: Head exam is unremarkable. LUNGS: No audible rhonchi or wheezes. HEART: Rate and Rhythm are regular. ABDOMEN: Nontender. EXTREMITITES: Left foot wrapped. No drainage. Objective - Vital Signs Vital signs: Vital Signs Temp 97.3 F L 08/10/23 07:45 Pulse 61 08/10/23 07:45 Resp 17 08/10/23 07:45 BP 172/77 08/10/23 07:45 Pulse Ox 94 L 08/10/23 07:45 FiO2 21 08/07/23 08:50 Intake & Output 08/09/23 08/10/23 08/10/23 18:59 06:59 18:59 Intake Total 100 Output Total 325 Balance 100 -325 Intake: IV 100 Output: Urine 325 Other: Voiding Method Bedside Commode Bedside Commode Bedside Commode Diaper Diaper Diaper Incontinent Incontinent Incontinent # Voids 1 # Bowel Movements 1 - Labs CBC & Chem 7: 08/09/23 06:37 08/09/23 06:37 Labs: Abnormal Lab Results - Last 24 Hours (Table) 08/09/23 08/09/23 08/09/23 Range/Units 06:37 11:53 17:20 Carbon Dioxide 19.5 L (21.6-31.8) mmol/L Anion Gap 18.50 H (4.00-12.00) mmol/L Creatinine 1.9 H (0.6-1.5) mg/dL Est GFR (CKD-EPI) 38 L (>=60) Glucose 154 H (70-110) mg/dL POC Glucose (mg/dL) 146 H 141 H (70-110) mg/dL Calcium 8.4 L (8.7-10.3) mg/dL 08/09/23 08/10/23 Range/Units 21:25 06:21 Carbon Dioxide (21.6-31.8) mmol/L Anion Gap (4.00-12.00) mmol/L Creatinine (0.6-1.5) mg/dL Est GFR (CKD-EPI) (>=60) Glucose (70-110) mg/dL POC Glucose (mg/dL) 132 H 167 H (70-110) mg/dL Calcium (8.7-10.3) mg/dL Assessment and Plan Plan: Assessment: 1. Chronic kidney disease stage IV with baseline creatinine 1.8-2 secondary to diabetic kidney disease. No hydronephrosis noted on kidney ultrasound on May 2023. Nonobstructive right renal stone was noted. 2. Left heel nonhealing ulcer with osteomyelitis status post debridement. On IV antibiotics. ID following. 3. Diabetes mellitus. 4. Coronary artery disease status post CABG and stent placement. 5. Hypertension with chronic kidney disease. 6. Chronic systolic CHF with ejection fraction of 30 to 35% and mild pulmonary hypertension noted on echocardiogram done May 2023. Plan: Encouraged oral intake. Avoid nephrotoxins. Losartan dose was increased yesterday. Hydralazine added today. Maintain torsemide. Continue to monitor renal function and urine output. Follow-up outpatient 1 week postdischarge.
[2023-08-10 12:42] LABS: Magnesium 1.8 mg/dL (1.5-2.4)
[2023-08-10 12:51] LABS: Glucose,Whole Blood 162 mg/dL (70-110)
[2023-08-10 12:58] LABS: BUN/Creat Ratio 13.67 Ratio (12.00-20.00); Blood Urea Nitrogen 28.7 mg/dL (9.0-27.0); Calcium 9.1 mg/dL (8.7-10.3); Carbon Dioxide 16.6 mmol/L (21.6-31.8); Chloride 102 mmol/L (96-109); Glucose 156 mg/dL (70-110); Potassium 4.5 mmol/L (3.5-5.5); Sodium 142 mmol/L (135-145)
--- NOTE | 2023-08-10 13:46 | PN ---
PROGRESS NOTE The patient has a history of wound in left heel. The patient had an extensive debridement and local wound care. We will be changing the dressing with Medihoney gel. PLAN: The patient will go home. We will follow in the wound clinic on Wednesday and dressing should be changed every other day with Medihoney gel. The patient is under care of Infectious Disease. We will follow in the wound clinic this Wednesday. SARTHAK / GAY: [id number] /
[2023-08-10] MEDS: hydrALAZINE HCL 50 MG TAB PO SCH (15:14)
[2023-08-10 17:22] LABS: Glucose,Whole Blood 232 mg/dL (70-110)
[2023-08-10 21:10] LABS: Glucose,Whole Blood 194 mg/dL (70-110)
--- NOTE | 2023-08-11 01:35 | P.PN ---
Subjective Progress Note Date: 08/10/23 67-year-old male presents to the emergency department for evaluation of generalized weakness. Patient states that he was just discharged from [facility] today. He states that he got home and was unable to ambulate. He is concerned because he is unable to take care of himself. He does report that she is supposed to be getting a wheelchair and other devices but he would not receive them until Wednesday. He states that he was not able to ambulate while in [facility]. He was there for rehab for a foot infection. He was receiving IV antibiotics for approximately 1 month. Blood work completed in ED reveals a WBC of 8.7, hemoglobin of 10.8 and platelet count of 242, sodium 134, potassium 5.2, BUNs/creatinine of 27/1.96 which is trended up to 1.4-1.5 baseline and blood glucose of 123 UA is unremarkable except positive for large amount of leukocyte esterase 08/02/2023 Patient is seen in follow-up this morning currently lying in the bed with infectious disease following maintained on IV antibiotics. Left wound of the heel with some eschar noted will consult vascular surgery Dr. Galindo for possible bedside debridement with deep tissue cultures. Patient has been in and out of the hospital multiple times for infection and cellulitis. Patient resides at an [facility] and plans to return there. Patient currently afebrile with no reports of chest pain or shortness of breath. Patient reports not watching her diet with occasional nausea and no vomiting. 08/03/2023 Patient seen in follow-up today maintained on daptomycin with infectious disease following. Preliminary culture showing gram-negative bacilli and patient is status post bedside surgical debridement with vascular surgery. Will continue with local wound care and offloading of these lower extremities. PT/OT therapy to evaluate as patient will most likely need continued rehab for strength and mobility. Patient with significant weakness was discharged from [facility] went home for 1 day and had to return to the hospital with inability to ambulate and care for himself. Patient is afebrile with no reports of chest pain or worsening shortness of breath. Wean FiO2 as tolerated. Patient reports not much of an appetite. Will consult dietary for input and recommendations. 08/04/2023 Patient is seen in follow-up today with vascular surgery and infectious disease following. Cultures preliminary showing gram-negative bacilli and awaiting finalized cultures to determine discharge antibiotics. Patient has had previous intravenous antibiotics in the outpatient setting. Patient will likely need a PICC line on discharge with continued IV antibiotic therapy. Per social work is following arranging discharge planning needs, patient has no time left available at [facility] and will be going home with home care. Continue local wound care and vascular surgery following and will be changing dressings today on the left heel. 08/05/2023 Patient seen and evaluated in follow-up with multiple medical consultations following. Patient is maintained on antibiotics and will likely receive a PICC line today after nephrology clearance his kidney functions are mildly elevated. Patient to continue with wound care and elevating lower extremity while at rest. Dressing changed by vascular surgery today and will need follow-up in the clinic. Patient was tentatively scheduled outpatient for ALEXIA with cardioversion for history of atrial fibrillation and will consult cardiology Dr. Chávez for evaluation. Patient is afebrile with no reports of chest pain or shortness of breath. Patient is maintained on 2 L via nasal cannula and does not wear oxygen outpatient. Discussed with patient along with nursing staff about weaning FiO2 as tolerated. Recommend PT/OT therapy daily. Social work is following as patient apparently has no further days available at [facility] although is significantly weak has had multiple prolonged hospitalizations and appears to be unable to care for himself. Social work also looking into as patient reports Medicaid was applied for. Patient without much of an appetite have consulted dietary. Encouraged oral intake and will continue to monitor sugars closely. Blood sugars have been on the lower side. 08/06/2023 Patient is seen in follow-up today with infectious disease, nephrology, vascular surgery, pulmonology following. Patient is maintained on antibiotics and has received a PICC line and is maintained on gentle IV hydration kidney function slightly improving and will continue with gentle hydration and follow-up on repeat labs. Cardiology was consulted as patient was following with Dr. Chávez outpatient scheduled for a ALEXIA with cardioversion today and awaiting his recommendations regarding this. Patient to continue with local wound care and dressing changes and elevating lower extremities while at rest. Patient will likely continue on IV antibiotics in the outpatient setting along with wilber se outpatient follow-up with the wound care center with Dr. Galindo. Patient is afebrile with no reports of chest pain or shortness of breath. Patient reports tolerating diet and encouraged oral intake. Patient reports not much of an appetite. Blood sugars being monitored and will continue current regimen. 08/09/2023 Patient is seen in follow-up today currently n.p.o. as patient is scheduled to undergo ALEXIA with cardioversion with Dr. Chávez. Patient is continued on IV antibiotics and apparently dislodged his previous PICC line and is receiving another one as patient will need continued IV antibiotic therapy with infectious disease following. Dr. Galindo vascular surgery to evaluate with dressing changes today. Will follow-up with repeat labs in the a.m. as kidney functions continue to be elevated. Continue gentle IV hydration. Adjust insulins accordingly and will continue to monitor Accu-Cheks before meals and at bedtime. Encouraged oral intake. Recommend PT/OT therapy daily. Social work following arranging for discharge planning. Patient has run out of senior care facility days and apparently does not qualify for Medicaid and will have to return home with home care. Patient is high risk for readmissions and unable to care for himself and his extensive wounds. Patient is non-ambulatory much. 08/10/2023 Patient is seen in follow-up today status post ALEXIA with cardioversion and tolerated well. Heart rate sinus currently in the 70s. Blood pressure mildly e levated and hydralazine being increased with nephrology and cardiology following. Patient did receive another PICC line and will be going home with IV antibiotics. Infectious disease following along with vascular surgery and awaiting finalized discharge planning home. Patient is extremely high risk for readmission as he has multiple significant comorbidities and lives alone and will have extreme difficulty taking care of himself. Patient is currently afebrile with no reported chest pain or shortness of breath. Patient continues to have a poor appetite and has been encouraged to increase along with limits between meals. Discharge planning in progress Review of systems: Constitutional: No reports of fatigue, fever, or chills Cardiovascular: No reports of chest pain or palpitations Respiratory: No reports of worsening shortness of breath, occasional cough GI: No reports of nausea, no vomiting, or diarrhea reports not much of an appetite : No reports of dysuria or retention Neurovascular: reports of generalized weakness All medications have been reviewed Physical exam: Gen: This is a 67-year-old male who is awake, alert and oriented x 3, well- developed, elderly appearing, ill-appearing, obese HEENT: Head is atraumatic, normocephalic. Pupils equal, round. Sclerae is ani cteric. NECK: Supple. No JVD. No lymphadenopathy. No thyromegaly. LUNGS: Diminished breath sounds bilaterally otherwise clear to auscultation. No wheezes or rhonchi. No intercostal retractions. HEART: S1, S2 are muffled ABDOMEN: Soft. Bowel sounds are present. No masses. No tenderness. EXTREMITIES: No pedal edema. No calf tenderness. Left heel surgical dressing currently being changed NEUROLOGICAL: Patient is awake, alert and oriented x3. Cranial nerves 2 through 12 are grossly intact. Diffusely weak Assessment: -Acute on chronic kidney disease stage III -Left heel unstageable ulcer/diabetic foot infection with redness and concerns for surrounding cellulitis, present on admission, previous cultures were MRSA status post bedside surgical debridement -Weakness/debility; patient was discharged from skilled rehab 24 hours prior to presenting to ED; we will consult PT/OT, patient would benefit from rehab on discharge for continued strengthening although has no remaining days and will have to go home with home care -Possible UTI; present on admission, ruled out, likely asymptomatic bacteriuria -Hypertension -Hyperlipidemia -Diabetes mellitus with long-term insulin use; uncontrolled with hypoglycemia -Hypothyroidism -Paroxysmal atrial fibrillation, status post ALEXIA with cardioversion 08/09/2023 -CAD, status post CABG and heart catheterization with stent placement -Chronic back pain -DVT prophylaxis; SCDs/subcu heparin -GI prophylaxis -full code Plan: Patient was recently discharged from [facility] and came back in shortly thereafter for concerns of left lower extremity surrounding cellulitis of an unstageable heel wound with eschar noted. Vascular surgery Dr. Galindo evaluated and is status post debridement with deep tissue cultures. Infectious diseases following and will continue on daptomycin. Patient has received another PICC line as it was apparently accidentally dislodged by patient. Patient being arranged for continued IV antibiotic therapy on discharge. Consult to PT/OT therapy as patient is significantly weak and was recently discharged from [facility] although unable to take care of himself and unable to ambulate. Social work following and patient is out of days for ECF and will be returning home with home care. Apparently Medicaid was applied for although patient does not qualify and social work is following. Will arrange for discharge planning needs in the home. Patient is a significantly high risk for readmissions as he is debilitated and unable to care for his wounds and generalized care on his own. Continue local wound care per vascular and infectious disease Recommend aspiration precautions and head of the bed elevated 30 to 45 degrees a nd supervision with meals. Patient without much of an appetite will consult dietary Will follow-up on repeat labs and monitor kidney functions. Replace electrolytes per protocol. Patient to continue on torsemide and blood pressure management per nephrology Patient underwent cardioversion with ALEXIA with Dr. Chávez on 08/09/2023. Tolerated well recommending outpatient follow-up continue monitoring Accu-Cheks before meals and at bedtime and will continue with sliding scale and adjust insulins accordingly. Encouraged oral intake Due to multiple complex medical issues, prognosis is guarded Case management/social work regarding discharge planning. Possibly in the next 24 hours The impression and plan of care has been dictated by Elizabet Rodriguez, Nurse Practitioner as directed. Dr. Elaina MD I have performed a history and examination and MDM of this patient, discussed the same with the dictator, and agree with the dictator's assessment and plan as written ,documented as a scribe. Based on total visit time, I have performed more than 50% of the visit. Objective - Vital Signs Vital signs: Vital Signs Temp 97.3 F L 08/10/23 07:45 Pulse 61 08/10/23 07:45 Resp 17 08/10/23 07:45 BP 172/77 08/10/23 07:45 Pulse Ox 94 L 08/10/23 07:45 FiO2 21 08/07/23 08:50 Intake & Output 08/09/23 08/10/23 08/10/23 18:59 06:59 18:59 Intake Total 100 Output Total 325 Balance 100 -325 Intake: IV 100 Output: Urine 325 Other: Voiding Method Bedside Commode Bedside Commode Bedside Commode Diaper Diaper Diaper Incontinent Incontinent Incontinent # Voids 1 # Bowel Movements 1 - Labs CBC & Chem 7: 08/09/23 06:37 08/10/23 06:31 Labs: Abnormal Lab Results - Last 24 Hours (Table) 08/09/23 08/09/23 08/09/23 Range/Units 06:37 11:53 17:20 Carbon Dioxide 19.5 L (21.6-31.8) mmol/L Anion Gap 18.50 H (4.00-12.00) mmol/L Creatinine 1.9 H (0.6-1.5) mg/dL Est GFR (CKD-EPI) 38 L (>=60) Glucose 154 H (70-110) mg/dL POC Glucose (mg/dL) 146 H 141 H (70-110) mg/dL Calcium 8.4 L (8.7-10.3) mg/dL 08/09/23 08/10/23 Range/Units 21:25 06:21 Carbon Dioxide (21.6-31.8) mmol/L Anion Gap (4.00-12.00) mmol/L Creatinine (0.6-1.5) mg/dL Est GFR (CKD-EPI) (>=60) Glucose (70-110) mg/dL POC Glucose (mg/dL) 132 H 167 H (70-110) mg/dL Calcium (8.7-10.3) mg/dL
[2023-08-11 06:40] LABS: Glucose,Whole Blood 156 mg/dL (70-110)
[2023-08-11 06:51] LABS: Glucose,Whole Blood 158 mg/dL (70-110)
[2023-08-11 12:04] LABS: Glucose,Whole Blood 201 mg/dL (70-110)
--- NOTE | 2023-08-11 12:51 | P.PN ---
Subjective Patient is seen in follow-up for chronic kidney disease. Renal function fairly stable this admission. Oral intake remains poor. No vomiting or diarrhea. Vital signs are stable. General: No acute distress. HEENT: Head exam is unremarkable. LUNGS: No audible rhonchi or wheezes. HEART: Rate and Rhythm are regular. ABDOMEN: Nontender. EXTREMITITES: Left foot wrapped. No drainage. Objective - Vital Signs Vital signs: Vital Signs Temp 98.5 F 08/11/23 07:39 Pulse 56 L 08/11/23 07:39 Resp 19 08/11/23 07:39 BP 143/53 08/11/23 07:39 Pulse Ox 98 08/11/23 07:39 FiO2 21 08/07/23 08:50 Intake & Output 08/10/23 08/11/23 08/11/23 18:59 06:59 18:59 Intake Total 118 236 Output Total 901 Balance 118 -901 236 Weight 99.79 kg Intake: Oral 118 236 Output: Urine 900 Stool 1 Other: Voiding Method Bedside Commode Bedside Commode Urinal Diaper Diaper Diaper Incontinent Incontinent # Voids 2 # Bowel Movements 1 - Labs CBC & Chem 7: 08/09/23 06:37 08/10/23 06:31 Labs: Abnormal Lab Results - Last 24 Hours (Table) 08/10/23 08/10/23 08/10/23 Range/Units 06:31 12:46 17:21 Carbon Dioxide 16.6 L (21.6-31.8) mmol/L Anion Gap 23.40 H (4.00-12.00) mmol/L BUN 28.7 H (9.0-27.0) mg/dL Creatinine 2.1 H (0.6-1.5) mg/dL Est GFR (CKD-EPI) 34 L (>=60) Glucose 156 H (70-110) mg/dL POC Glucose (mg/dL) 162 H 232 H (70-110) mg/dL 08/10/23 08/11/23 08/11/23 Range/Units 21:08 06:38 06:49 Carbon Dioxide (21.6-31.8) mmol/L Anion Gap (4.00-12.00) mmol/L BUN (9.0-27.0) mg/dL Creatinine (0.6-1.5) mg/dL Est GFR (CKD-EPI) (>=60) Glucose (70-110) mg/dL POC Glucose (mg/dL) 194 H 156 H 158 H (70-110) mg/dL 08/11/23 Range/Units 12:02 Carbon Dioxide (21.6-31.8) mmol/L Anion Gap (4.00-12.00) mmol/L BUN (9.0-27.0) mg/dL Creatinine (0.6-1.5) mg/dL Est GFR (CKD-EPI) (>=60) Glucose (70-110) mg/dL POC Glucose (mg/dL) 201 H (70-110) mg/dL Assessment and Plan Plan: Assessment: 1. Chronic kidney disease stage IV with baseline creatinine 1.8-2 secondary to diabetic kidney disease. No hydronephrosis noted on kidney ultrasound on May 2023. Nonobstructive right renal stone was noted. 2. Left heel nonhealing ulcer with osteomyelitis status post debridement. On IV antibiotics. ID following. 3. Diabetes mellitus. 4. Coronary artery disease status post CABG and stent placement. 5. Hypertension with chronic kidney disease. 6. Chronic systolic CHF with ejection fraction of 30 to 35% and mild pulmonary hypertension noted on echocardiogram done May 2023. 7. Edema. Maintained on torsemide. Plan: Encouraged oral intake. Avoid nephrotoxins. Losartan dose was increased yesterday. Maintain torsemide. Lasix 20 mg IV once today. Increase dose of hydralazine to 75 mg. Hold for systolic blood pressure less than 120. Continue to monitor renal function and urine output. Follow-up outpatient 1 week postdischarge.
[2023-08-11 13:33] VITALS: BP 178/77; PULSE 52; RESP 17; TEMP 98.1
[2023-08-11] MEDS: FUROSEMIDE 10 MG/ML 2 ML VIAL IV ONE (14:11)
[2023-08-11] MEDS ORDERED: hydrALAZINE HCL 25 MG TAB PO SCH (16:00)
== END 2023-08-11 14:22 | disposition home health service (06) | DRG 623 ==
LOC: EC 14:41 → 6NMEDSUR 20:08 → OBSVTOIN 20:09 → 6NMEDSUR 22:09
PROVIDERS: ADMIT Hospitalist; ATTEND Hospitalist
PROC: 0JBR0ZZ Excision of Left Foot Subcutaneous Tissue and Fascia, Open Approach (ICD-10-PCS; principal; 2023-08-02)
PROC: 05HB33Z Insertion of Infusion Device into Right Basilic Vein, Percutaneous Approach (ICD-10-PCS; 2023-08-04)
PROC: 02HV33Z Insertion of Infusion Device into Superior Vena Cava, Percutaneous Approach (ICD-10-PCS; 2023-08-05)
PROC: B5181ZA Fluoroscopy of Superior Vena Cava using Low Osmolar Contrast, Guidance (ICD-10-PCS; 2023-08-05)
PROC: B548ZZA Ultrasonography of Superior Vena Cava, Guidance (ICD-10-PCS; 2023-08-05)
PROC: B246ZZ4 Ultrasonography of Right and Left Heart, Transesophageal (ICD-10-PCS; 2023-08-09)
PROC: 5A2204Z Restoration of Cardiac Rhythm, Single (ICD-10-PCS; 2023-08-09)
DX: E11.628 Type 2 diabetes mellitus with other skin complications (principal); I13.0 Hypertensive heart and chronic kidney disease with heart failure and stage 1 through stage 4 chronic kidney disease, or unspecified chronic kidney disease; L03.116 Cellulitis of left lower limb; I48.19 Other persistent atrial fibrillation; I48.3 Typical atrial flutter; B96.4 Proteus (mirabilis) (morganii) as the cause of diseases classified elsewhere; B95.7 Other staphylococcus as the cause of diseases classified elsewhere; B37.2 Candidiasis of skin and nail; E11.69 Type 2 diabetes mellitus with other specified complication; E11.22 Type 2 diabetes mellitus with diabetic chronic kidney disease; I27.20 Pulmonary hypertension, unspecified; L89.629 Pressure ulcer of left heel, unspecified stage; N18.4 Chronic kidney disease, stage 4 (severe); I50.22 Chronic systolic (congestive) heart failure; M86.8X7 Other osteomyelitis, ankle and foot; R53.1 Weakness; E11.621 Type 2 diabetes mellitus with foot ulcer; N17.9 Acute kidney failure, unspecified; E11.51 Type 2 diabetes mellitus with diabetic peripheral angiopathy without gangrene; E78.5 Hyperlipidemia, unspecified; E07.9 Disorder of thyroid, unspecified; N18.30 Chronic kidney disease, stage 3 unspecified; G89.29 Other chronic pain; I25.10 Atherosclerotic heart disease of native coronary artery without angina pectoris; E11.649 Type 2 diabetes mellitus with hypoglycemia without coma; Z95.1 Presence of aortocoronary bypass graft; I48.0 Paroxysmal atrial fibrillation; M54.9 Dorsalgia, unspecified; E03.9 Hypothyroidism, unspecified; Z79.890 Hormone replacement therapy; Z79.4 Long term (current) use of insulin
CPT/HCPCS: 36410; 36415; 36573; 71045; 71046; 74019; 76937; 80048; 80053; 81001; 83605; 83735; 85025; 85610; 85730; 87070; 87075; 87077; 87086; 87186; 87205; 92960; 93005; 93312; 93320; 93325; 94760; 96374; 99285

== ENCOUNTER 2023-08-12 11:51 | Inpatient (IN) | payer MEDICARE ==
[2023-08-12 13:25] LABS: Basophils # (A) 0.1 k/uL (0-0.2); Basophils % (A) 1 %; Eosinophils # (A) 0.1 k/uL (0-0.7); Eosinophils % (A) 2 %; HCT 33.1 % (39.0-53.0); Hypochromasia Moderate; Lymphocytes # (A) 0.5 k/uL (1.0-4.8); Lymphocytes % (A) 8 %; MCH 27.9 pg (25.0-35.0); MCHC 30.2 g/dL (31.0-37.0); MCV 92.3 fL (80.0-100.0); Mean Platelet Volume 10.8; Monocytes # (A) 0.5 k/uL (0-1.0); Monocytes % (A) 8 %; Neutrophils # (A) 4.7 k/uL (1.3-7.7); Neutrophils % (A) 79 %; Platelet Count 232 k/uL (150-450); RBC 3.58 m/uL (4.30-5.90); RDW 15.6 % (11.5-15.5); WBC 5.9 k/uL (3.8-10.6)
--- NOTE | 2023-08-12 13:39 | ED ---
General Adult HPI - General Chief complaint: Extremity Problem,Nontraumatic Stated complaint: Abdominal Pain Time Seen by Provider: 08/12/23 12:15 Source: patient Mode of arrival: EMS Limitations: no limitations - History of Present Illness Initial comments: 67-year-old male presents to the emergency department from home. Patient was just discharged from our facility yesterday. he had been hospitalized for debility with osteomyelitis of the foot. Patient was discharged with a PICC line. He has been unable to care for himself however patient has no days left for rehab this year and therefore was forced to be discharged home. He states that he spent all night bed as he cannot ambulate. He has been urinating and defecating on himself. States he did not take his medications. He has been unable to get up to get himself any food. Patient arrives on 2 L of oxygen via EMS. They had reported that the patient was hypoxic at home. Patient was on oxygen while he was hospitalized however he did not qualify for any at home. Patient admits to some generalized abdominal pain which he states has been chronic for him. No other alleviating, precipitating modifying factors - Related Data Home Medications Medication Instructions Recorded Confirmed Ferrous Sulfate [Iron (65 MG 325 mg PO DAILY 03/04/21 08/12/23 Elemental)] Hydroxychloroquine Sulfate 200 mg PO BID 03/04/21 08/12/23 [Plaquenil] Levothyroxine Sodium [Synthroid] 100 mcg PO DAILY@0600 03/04/21 08/12/23 Balsalazide Disodium [Colazal] 2,250 mg PO BID 03/17/23 08/12/23 Loratadine [Claritin] 10 mg PO DAILY 03/17/23 08/12/23 Atorvastatin [Lipitor] 10 mg PO HS 08/01/23 08/12/23 HYDROcodone/APAP 5-325MG [[place] 1 tab PO Q6H PRN 08/01/23 08/12/23 5-325] Insulin Lispro See Protocol SQ TID-W/MEALS 08/01/23 08/12/23 Melatonin 10 mg PO HS 08/01/23 08/12/23 Ondansetron [Zofran] 4 mg PO TID PRN 08/01/23 08/12/23 Gabapentin [Neurontin] 100 mg PO Q8H 08/12/23 08/12/23 Previous Rx's Medication Instructions Recorded Famotidine [Pepcid] 20 mg PO BID #60 tablet 03/12/21 Meclizine [Antivert] 12.5 mg PO TID PRN 30 Days #90 03/13/21 tablet Apixaban [Eliquis] 5 mg PO BID #60 tab 06/11/23 Acetaminophen Tab [Tylenol] 650 mg PO Q6HR PRN tab 08/11/23 Amiodarone [Cordarone] 200 mg PO DAILY #30 tab 08/11/23 Aspirin 81 mg PO DAILY #30 tab 08/11/23 Insulin Glargine-Yfgn [Semglee 15 unit SQ HS #0 08/11/23 (Yfgn) Pen] Losartan [Cozaar] 50 mg PO BID #60 tab 08/11/23 Torsemide [Demadex] 10 mg PO DAILY 30 Days #15 tab 08/11/23 carvediloL [Coreg*] 25 mg PO BID-W/MEALS 30 Days #120 08/11/23 tab cefTRIAXone [Rocephin] 2 gm IVPB Q24HR each 08/11/23 hydrALAZINE HCL [Apresoline] 50 mg PO TID #90 tab 08/11/23 Allergies Allergy/AdvReac Type Severity Reaction Status Date / Time Penicillins Allergy Unknown Verified 08/12/23 14:11 Childhood Review of Systems ROS Statement: Those systems with pertinent positive or pertinent negative responses have been documented in the HPI. ROS Other: All systems not noted in ROS Statement are negative. Past Medical History Past Medical History: Diabetes Mellitus, Hyperlipidemia, Hypertension, Thyroid Disorder History of Any Multi-Drug Resistant Organisms: None Reported Date of last positivie culture/infection: 04/21/23 MDRO Source:: Left Foot Past Surgical History: Coronary Bypass/CABG, Heart Catheterization With Stent Additional Past Surgical History / Comment(s): left great and second toe removal. bilat carpal tunnel. neck fusion 5-6-7. triple bypass Past Anesthesia/Blood Transfusion Reactions: No Reported Reaction Additional Past Anesthesia/Blood Transfusion Reaction / Comment(s): no blood transfusion Date of Last Stent Placement:: 02/2002 Past Psychological History: No Psychological Hx Reported Smoking Status: Former smoker Past Alcohol Use History: None Reported Past Drug Use History: None Reported - Past Family History Father History Unknown: Yes Mother History Unknown: Yes General Exam Limitations: no limitations General appearance: alert, in no apparent distress Head exam: Present: atraumatic, normocephalic, normal inspection Eye exam: Present: normal appearance, PERRL, EOMI. Absent: scleral icterus, conjunctival injection, periorbital swelling ENT exam: Present: normal exam, mucous membranes moist Neck exam: Present: normal inspection. Absent: tenderness, meningismus, lymphadenopathy Respiratory exam: Present: normal lung sounds bilaterally. Absent: respiratory distress, wheezes, rales, rhonchi, stridor Cardiovascular Exam: Present: regular rate, normal rhythm, normal heart sounds. Absent: systolic murmur, diastolic murmur, rubs, gallop, clicks GI/Abdominal exam: Present: soft, normal bowel sounds. Absent: distended, tenderness, guarding, rebound, rigid Extremities exam: Present: normal capillary refill, other (dressing in left foot). Absent: tenderness, pedal edema, calf tenderness Back exam: Present: normal inspection Neurological exam: Present: alert, oriented X3, CN II-XII intact Psychiatric exam: Present: normal affect, normal mood Skin exam: Present: warm, dry, intact, normal color. Absent: rash Course Vital Signs 08/12/23 08/12/23 08/12/23 12:08 13:14 13:30 Temperature 98.7 F Pulse Rate 71 Respiratory 20 Rate Blood Pressure 184/85 O2 Sat by Pulse 97 96 89 L Oximetry 08/12/23 08/12/23 08/12/23 14:02 17:10 19:42 Temperature 98.1 F Pulse Rate 66 70 66 Respiratory 18 20 20 Rate Blood Pressure 195/73 189/98 193/72 O2 Sat by Pulse 99 97 99 Oximetry 08/12/23 08/12/23 08/13/23 20:46 21:45 01:00 Temperature 97.4 F L Pulse Rate 62 58 L 64 Respiratory 18 18 18 Rate Blood Pressure 181/73 177/50 158/74 O2 Sat by Pulse 100 100 98 Oximetry 08/13/23 08/13/23 08/13/23 06:05 07:39 09:28 Temperature Pulse Rate 56 L 52 L 48 L Respiratory 18 16 Rate Blood Pressure 163/65 162/78 153/68 O2 Sat by Pulse 98 98 97 Oximetry 08/13/23 08/13/23 08/13/23 10:43 12:13 13:10 Temperature 97.9 F Pulse Rate 47 L 51 L 51 L Respiratory 16 18 Rate Blood Pressure 143/67 153/83 O2 Sat by Pulse 94 L 94 L 100 Oximetry 08/13/23 08/13/23 14:15 15:13 Temperature 98.1 F Pulse Rate 54 L 53 L Respiratory 17 18 Rate Blood Pressure 160/82 168/75 O2 Sat by Pulse 99 100 Oximetry Medical Decision Making - Medical Decision Making Was pt. sent in by a medical professional or institution (, PA, MILKING SYSTEM INSTALLER, urgent care, hospital, or skilled nursing...) When possible be specific @ -No Did you speak to anyone other than the patient for history (EMS, parent, family, police, friend...)? What history was obtained from this source @ -I spoke with EMS for history Did you review nursing and triage notes (agree or disagree)? Why? @ -I reviewed and agree with nursing and triage notes Were old charts reviewed (outside hosp., previous admission, EMS record, old EKG, old radiological studies, urgent care reports/EKG's, skilled nursing records)? Report findings @ -I reviewed patient's discharge summary from yesterday Differential Diagnosis (chest pain, altered mental status, abdominal pain women, abdominal pain men, vaginal bleeding, weakness, fever, dyspnea, syncope, headache, dizziness, GI bleed, back pain, seizure, CVA, palpatations, mental health, musculoskeletal)? @ -Differential Weakness: Hypoglycemia, shock, sepsis, hyponatremia, anemia, infection, [place], ETOH, adverse medicine reaction, overdose, stroke, this is not meant to be an all-inclusive list. EKG interpreted by me (3pts min.). @ -Yes and demonstrates sinus rhythm with a rate of 70. TN interval 230. QRS 142. QTc of 451. Intraventricular conduction delay. No acute ST segment elevation or depression X-rays interpreted by me (1pt min.). @ -None done CT interpreted by me (1pt min.). @ -None done U/S interpreted by me (1pt. min.). @ -None done What testing was considered but not performed or refused? (CT, X-rays, U/S, labs)? Why? @ -None What meds were considered but not given or refused? Why? @ -None Did you discuss the management of the patient with other professionals (professionals i.e. , PA, MILKING SYSTEM INSTALLER, lab, RT, psych nurse, social security benefits interviewer, horse stud worker, teacher, property officer, special education case manager)? Give summary @ -I discussed the case with the special education case manager. Patient is out of days at rehab. I also spoke with the admitting physician Was smoking cessation discussed for >3mins.? @ -No Was critical care preformed (if so, how long)? @ -No Were there social determinants of health that impacted care today? How? (Ho melessness, low income, unemployed, alcoholism, drug addiction, transportation, low edu. Level, literacy, decrease access to med. care, alf, rehab)? @ -Patient lives alone and cannot care for himself. He has significant healthcare needs Was there de-escalation of care discussed even if they declined (Discuss DNR or withdrawal of care, Hospice)? DNR status @ -No What co-morbidities impacted this encounter? (DM, HTN, Smoking, COPD, CAD, Cancer, CVA, ARF, Chemo, Hep., AIDS, mental health diagnosis, sleep apnea, morbid obesity)? @ -Osteomyelitis, diabetes, hypertension Was patient admitted / discharged? Hospital course, mention meds given and route, prescriptions, significant lab abnormalities, going to OR and other pertinent info. @ -Upon arrival patient was seen in room 4. Thorough history and physical exam was performed. I did repeat laboratory studies. I spoke with the case greg díaz. She does not think that the patient has any more days at rehab. Patient cannot care for himself. I will admit the patient as an observation status to further discuss with case management possible placement for the patient Undiagnosed new problem with uncertain prognosis? @ -No Drug Therapy requiring intensive monitoring for toxicity (Heparin, Nitro, Insulin, Cardizem)? @ -No Were any procedures done? @ -No Diagnosis/symptom? @ -General debility, inability to care for self, foot osteomyelitis, diabetes Acute, or Chronic, or Acute on Chronic? @ -Chronic Uncomplicated (without systemic symptoms) or Complicated (systemic symptoms)? @ -Complicated Side effects of treatment? @ -No Exacerbation, Progression, or Severe Exacerbation? @ -No Poses a threat to life or bodily function? How? (Chest pain, [place], [place], pneumonia, PE, COPD, DKA, ARF, appy, cholecystitis, CVA, Diverticulitis, Homicidal, Suicidal, threat to staff... and all critical care pts) @ -No - Lab Data Result diagrams: 08/15/23 06:27 08/16/23 09:24 Lab Results 08/12/23 08/12/23 08/12/23 Range/Units 13:00 13:00 13:00 WBC 5.9 (3.8-10.6) k/uL RBC 3.58 L (4.30-5.90) m/uL Hgb 10.0 L (13.0-17.5) gm/dL Hct 33.1 L (39.0-53.0) % MCV 92.3 (80.0-100.0) fL MCH 27.9 (25.0-35.0) pg MCHC 30.2 L (31.0-37.0) g/dL RDW 15.6 H (11.5-15.5) % Plt Count 232 (150-450) k/uL MPV 10.8 Neutrophils % 79 % Lymphocytes % 8 % Monocytes % 8 % Eosinophils % 2 % Basophils % 1 % Neutrophils # 4.7 (1.3-7.7) k/uL Lymphocytes # 0.5 L (1.0-4.8) k/uL Monocytes # 0.5 (0-1.0) k/uL Eosinophils # 0.1 (0-0.7) k/uL Basophils # 0.1 (0-0.2) k/uL Hypochromasia Moderate Sodium 140 (137-145) mmol/L Potassium 3.4 L (3.5-5.1) mmol/L Chloride 106 (98-107) mmol/L Carbon Dioxide 26 (22-30) mmol/L Anion Gap 8 mmol/L BUN 28 H (9-20) mg/dL Creatinine 2.00 H (0.66-1.25) mg/dL Est GFR (CKD-EPI)AfAm 39 (>60 ml/min/1.73 sqM) Est GFR (CKD-EPI)NonAf 34 (>60 ml/min/1.73 sqM) Glucose 108 H (74-99) mg/dL Plasma Lactic Acid Brig[place] 1.0 (0.7-2.0) mmol/L Calcium 8.8 (8.4-10.2) mg/dL Magnesium 1.7 (1.6-2.3) mg/dL Total Bilirubin 0.7 (0.2-1.3) mg/dL AST 23 (17-59) U/L ALT 8 (4-49) U/L Alkaline Phosphatase 60 (38-126) U/L Troponin I (0.000-0.034) ng/mL NT-Pro-B Natriuret Pep 51033 pg/mL Total Protein 5.5 L (6.3-8.2) g/dL Albumin 3.0 L (3.5-5.0) g/dL 08/12/23 Range/Units 13:00 WBC (3.8-10.6) k/uL RBC (4.30-5.90) m/uL Hgb (13.0-17.5) gm/dL Hct (39.0-53.0) % MCV (80.0-100.0) fL MCH (25.0-35.0) pg MCHC (31.0-37.0) g/dL RDW (11.5-15.5) % Plt Count (150-450) k/uL MPV Neutrophils % % Lymphocytes % % Monocytes % % Eosinophils % % Basophils % % Neutrophils # (1.3-7.7) k/uL Lymphocytes # (1.0-4.8) k/uL Monocytes # (0-1.0) k/uL Eosinophils # (0-0.7) k/uL Basophils # (0-0.2) k/uL Hypochromasia Sodium (137-145) mmol/L Potassium (3.5-5.1) mmol/L Chloride (98-107) mmol/L Carbon Dioxide (22-30) mmol/L Anion Gap mmol/L BUN (9-20) mg/dL Creatinine (0.66-1.25) mg/dL Est GFR (CKD-EPI)AfAm (>60 ml/min/1.73 sqM) Est GFR (CKD-EPI)NonAf (>60 ml/min/1.73 sqM) Glucose (74-99) mg/dL Plasma Lactic Acid Brigido (0.7-2.0) mmol/L Calcium (8.4-10.2) mg/dL Magnesium (1.6-2.3) mg/dL Total Bilirubin (0.2-1.3) mg/dL AST (17-59) U/L ALT (4-49) U/L Alkaline Phosphatase (38-126) U/L Troponin I 0.122 H* (0.000-0.034) ng/mL NT-Pro-B Natriuret Pep pg/mL Total Protein (6.3-8.2) g/dL Albumin (3.5-5.0) g/dL Disposition Clinical Impression: Foot osteomyelitis, left, Hypoxia, CHF exacerbation, Generalized weakness Disposition: ADMITTED IP TO THIS HOSP Condition: Stable Is patient prescribed a controlled substance at d/c from ED?: No Time of Disposition: 14:52 Decision to Admit Reason: Admit from EC Decision Date: 08/12/23 Decision Time: 14:52
[2023-08-12 13:42] LABS: ALT 8 U/L (4-49); AST 23 U/L (17-59); African American GFR (CKD) 39 (>60 ml/min/1.73 sqM); Alkaline Phosphatase 60 U/L (38-126); Anion Gap 8 mmol/L; Blood Urea Nitrogen 28 mg/dL (9-20); Calcium 8.8 mg/dL (8.4-10.2); Carbon Dioxide 26 mmol/L (22-30); Chloride 106 mmol/L (98-107); Glucose 108 mg/dL (74-99); Magnesium 1.7 mg/dL (1.6-2.3); Non-African American GFR(CKD) 34 (>60 ml/min/1.73 sqM); Potassium 3.4 mmol/L (3.5-5.1); Sodium 140 mmol/L (137-145); Total Bilirubin 0.7 mg/dL (0.2-1.3); Total Protein 5.5 g/dL (6.3-8.2)
--- NOTE | 2023-08-12 13:42 | XR ---
EXAMINATION TYPE: XR chest 2V DATE OF EXAM: 08/12/2023 1:33 PM CLINICAL INDICATION:Male, 67 years old with history of hypoxia; [facility] COMPARISON: Chest radiographs from 08/09/2023 TECHNIQUE: XR chest 2V Frontal and lateral views of the chest. FINDINGS: Lungs/Pleura: There is no evidence of pleural effusion, focal consolidation, or pneumothorax. Pulmonary vascularity: Pulmonary vascular congestion. Heart/mediastinum: Cardiomediastinal silhouette is unremarkable. Musculoskeletal: No acute osseous pathology. There is fixation hardware in the lower cervical spine. Midline sternotomy wires are noted. Other findings: None IMPRESSION: Cardiomegaly and mild pulmonary vascular congestion. Correlate with BNP for congestive heart failure.
[2023-08-12 14:09] LABS: NT-Pro-B-Type Natriuretic Pept 30700 pg/mL
[2023-08-12] MEDS ORDERED: NALOXONE 0.4 MG/ML 1 ML VIAL IV PRN (14:52)
[2023-08-12] MEDS: FUROSEMIDE 10 MG/ML 4 ML VIAL IV STA (15:18)
[2023-08-12 17:34] LABS: Appearance,Urine Cloudy (Clear); Bacteria,Urine Rare /hpf; Bilirubin,Urine Negative (Negative); Blood,Urine Small (Negative); Budding Yeast,Urine Many /hpf; Color,Urine Light Yellow; Glucose,Urine (UA) Negative (Negative); Hyaline Casts,Urine 3 /lpf (0-2); Ketones,Urine Trace (Negative); Leukocyte Esterase,Urine Large (Negative); Mucus,Urine Rare /hpf; Nitrite,Urine Negative (Negative); PH, Urine 5.5 (5.0-8.0); Protein,Urine 1+ (Negative); RBC,Urine 17 /hpf (0-5); Specific Gravity,Urine 1.009 (1.001-1.035); Squamous Epithelial Cell,Urine 1 /hpf (0-4); Urobilinogen,Urine <2.0 mg/dL (<2.0); WBC,Urine 77 /hpf (0-5)
[2023-08-12] MEDS: carvediloL 12.5 MG TAB PO SCH (18:31)
[2023-08-12] MEDS: AMIODARONE 200 MG TAB PO SCH (18:31)
[2023-08-12] MEDS: hydrALAZINE HCL 50 MG TAB PO SCH (18:31)
[2023-08-12] MEDS: LOSARTAN 50 MG TAB PO SCH (21:00)
--- NOTE | 2023-08-12 21:57 | P.HPIM ---
History of Present Illness H&P Date: 08/12/23 Chief Complaint: Shortness of breath Patient is a 67-year-old male with a past medical history of chronic CHF with systolic function ejection fraction 25 to 30% as per recent ALEXIA on 08/09/2023, hypertension, hyperlipidemia, diabetes type 2, hypothyroidism and prior history of smoking and chronic left heel ulcer status post recent debridement showing Proteus and also history of MRSA. Patient was discharged from the hospital on 08/11/2023 and plan continue to IV antibiotics for 6 weeks and follow-up with wound care center as an outpatient. Patient was evaluated by PT OT 9 could not be able to send to rehab as the patient is out of place and patient is unable to pay [id number] expenses for ECF. Patient was discharged home with home care. Patient was seen by home care nurse. Patient has not been taking care of himself at home and also was complaining of shortness of breath and was recommended to go to ER. Patient states that he spent all night in the bed and cannot ambulate. Patient has been urinating and defeating on himself. He has not been taking his medications. Patient was requiring oxygen 2 L via nasal cannula when EMS found him patient was also found to be hypoxic at home. He was having generalized pain and abdominal pain which has been chronic for him. Denies any fever or chills. Patient does have cough without any sputum production. Laboratory pressure WBC 5.9 hemoglobin 10.0 and platelets 232 Sodium 140 potassium 3.4 chloride 106 bicarb is 26 BUN 28 and creatinine 2.0 and blood sugar 108 Troponin 0.1-2, 0.142 and 0.143. proBNP 30,700, urinalysis showed 1+ protein trace ketones with small blood large leukocyte esterase RBC 79 WBCs 77. Chest x-ray showed cardiomegaly and mild pulmonary vascular congestion. Correlate with BNP for CHF. EKG showed sinus rhythm with first-degree AV block. Review of Systems Constitutional: Patient denies any fever or chills . Patient does have generalized weakness and fatigue. Abdomen: Patient denied nausea vomiting and diarrhea. Chronic abdominal pain. Cardiovascular: Patient denies any chest pain. Positive for short of breath no palpitations. Increased leg swelling Respiratory: patient does have cough without sputum production. Patient does have shortness of breath Neurologic: Patient denied any numbness or tingling. no headache. Musculoskeletal: Patient denies any complaints of joint swelling or deformity. Skin: Negative Psychiatric: Negative Endocrine: No heat or cold intolerance. No recent weight gain. Genitourinary: No dysuria or hematuria. All other 14 point ROS negative except the above Past Medical History Past Medical History: Diabetes Mellitus, Hyperlipidemia, Hypertension, Thyroid Disorder History of Any Multi-Drug Resistant Organisms: None Reported Date of last positivie culture/infection: 04/21/23 MDRO Source:: Left Foot Past Surgical History: Coronary Bypass/CABG, Heart Catheterization With Stent Additional Past Surgical History / Comment(s): left great and second toe removal. bilat carpal tunnel. neck fusion 5-6-7. triple bypass Past Anesthesia/Blood Transfusion Reactions: No Reported Reaction Additional Past Anesthesia/Blood Transfusion Reaction / Comment(s): no blood transfusion Date of Last Stent Placement:: 02/2002 Past Psychological History: No Psychological Hx Reported Smoking Status: Former smoker Past Alcohol Use History: None Reported Additional Past Alcohol Use History / Comment(s): quit smoking at 38 Past Drug Use History: None Reported - Past Family History Father History Unknown: Yes Mother History Unknown: Yes Medications and Allergies Home Medications Medication Instructions Recorded Confirmed Type Ferrous Sulfate [Iron (65 MG 325 mg PO DAILY 03/04/21 08/26/23 History Elemental)] Hydroxychloroquine Sulfate 200 mg PO BID 03/04/21 08/26/23 History [Plaquenil] Levothyroxine Sodium [Synthroid] 100 mcg PO DAILY@0600 03/04/21 08/26/23 History Meclizine [Antivert] 12.5 mg PO TID PRN 30 Days #90 03/13/21 08/26/23 Rx tablet Balsalazide Disodium [Colazal] 2,250 mg PO BID 03/17/23 08/26/23 History Loratadine [Claritin] 10 mg PO DAILY 03/17/23 08/26/23 History Apixaban [Eliquis] 5 mg PO BID #60 tab 06/11/23 08/26/23 Rx Atorvastatin [Lipitor] 10 mg PO HS 08/01/23 08/26/23 History Insulin Lispro See Protocol SQ TID-W/MEALS 08/01/23 08/26/23 History Melatonin 10 mg PO HS 08/01/23 08/26/23 History Ondansetron [Zofran] 4 mg PO TID PRN 08/01/23 08/26/23 History Acetaminophen Tab [Tylenol] 650 mg PO Q6HR PRN tab 08/11/23 08/26/23 Rx Amiodarone [Cordarone] 200 mg PO DAILY #30 tab 08/11/23 08/26/23 Rx Aspirin 81 mg PO DAILY #30 tab 08/11/23 08/26/23 Rx Losartan [Cozaar] 50 mg PO BID #60 tab 08/11/23 08/26/23 Rx Torsemide [Demadex] 10 mg PO DAILY 30 Days #15 tab 08/11/23 08/26/23 Rx hydrALAZINE HCL [Apresoline] 50 mg PO TID #90 tab 08/11/23 08/26/23 Rx Gabapentin [Neurontin] 100 mg PO Q8H 08/12/23 08/26/23 History Dapagliflozin Propanediol [Farxiga] 10 mg PO DAILY #30 tab 08/25/23 08/26/23 Rx Famotidine [Pepcid] 20 mg PO BID 30 Days #60 tablet 08/25/23 08/26/23 Rx HYDROcodone/APAP 5-325MG [[place] 1 tab PO HS PRN 5 Days #5 tab 08/25/23 08/26/23 Rx 5-325] Insulin Detemir (Levemir) [Levemir] 8 unit SQ HS #10 gm 08/25/23 08/26/23 Rx Isosorbide Mononitrate ER [Imdur] 30 mg PO DAILY #30 tab 08/25/23 08/26/23 Rx amLODIPine [Norvasc] 10 mg PO DAILY #30 tab 08/25/23 08/26/23 Rx carvediloL [Coreg] 6.25 mg PO BID 30 Days #60 tablet 08/25/23 08/26/23 Rx cefUROXime axetiL [Ceftin] 500 mg PO BID #28 tab 08/25/23 08/26/23 Rx metroNIDAZOLE [Flagyl] 500 mg PO TID #42 tab 08/25/23 08/26/23 Rx Allergies Allergy/AdvReac Type Severity Reaction Status Date / Time Penicillins Allergy Unknown Verified 08/26/23 19:51 Childhood Physical Exam Vitals: Vital Signs Temp Pulse Resp BP Pulse Ox 08/12/23 20:46 97.4 F L 62 18 181/73 100 08/12/23 19:42 66 20 193/72 99 08/12/23 17:10 98.1 F 70 20 189/98 97 08/12/23 14:02 66 18 195/73 99 08/12/23 13:30 89 L 08/12/23 13:14 96 08/12/23 12:08 98.7 F 71 20 184/85 97 Intake and Output 08/12/23 08/12/23 08/12/23 06:59 14:59 22:59 Output Total 950 Balance -950 Output: Urine 950 Other: Weight 99.79 kg 99.79 kg PHYSICAL EXAMINATION: Patient is lying in the bed comfortably, no acute distress, awake alert and oriented. Lethargic and weak.. HEENT: Normocephalic. Neck is supple. Pupils reactive. Nostrils clear. Oral cavity is moist. Neck reveals no JVD, carotid bruits, or thyromegaly. CHEST EXAMINATION: Trachea is central. Symmetrical expansion. Bibasilar diminished sounds and bibasilar crackles. Nonlabored breathing. No wheezing. CARDIAC: Normal S1, S2 with no gallops. No murmurs ABDOMEN: Soft. Bowel sounds normal. No organomegaly. No abdominal bruits. Extremities: Bilateral lower extremity 2+ edema. Left heel wound is bandaged. No clubbing or cyanosis Neurologically awake, alert, oriented x3. Able to move all extremities while in bed.. No gross focal deficits noted Skin: No rash or skin lesions except as above. Psychiatric: Coperative. Nonsuicidal Musculoskeletal: No joint swelling or deformity. Results CBC & Chem 7: 08/15/23 06:27 08/16/23 09:24 Labs: Abnormal Lab Results - Last 24 Hours (Table) 08/12/23 08/12/23 08/12/23 Range/Units 13:00 13:00 13:00 RBC 3.58 L (4.30-5.90) m/uL Hgb 10.0 L (13.0-17.5) gm/dL Hct 33.1 L (39.0-53.0) % MCHC 30.2 L (31.0-37.0) g/dL RDW 15.6 H (11.5-15.5) % Lymphocytes # 0.5 L (1.0-4.8) k/uL Potassium 3.4 L (3.5-5.1) mmol/L BUN 28 H (9-20) mg/dL Creatinine 2.00 H (0.66-1.25) mg/dL Glucose 108 H (74-99) mg/dL Troponin I 0.122 H* (0.000-0.034) ng/mL Total Protein 5.5 L (6.3-8.2) g/dL Albumin 3.0 L (3.5-5.0) g/dL Urine Protein (Negative) Urine Ketones (Negative) Urine Blood (Negative) Ur Leukocyte Esterase (Negative) Urine RBC (0-5) /hpf Urine WBC (0-5) /hpf Urine Bacteria (None) /hpf Hyaline Casts (0-2) /lpf Urine Mucus (None) /hpf Urine Yeast (Budding) (None) /hpf 08/12/23 08/12/23 08/12/23 Range/Units 17:10 17:28 20:27 RBC (4.30-5.90) m/uL Hgb (13.0-17.5) gm/dL Hct (39.0-53.0) % MCHC (31.0-37.0) g/dL RDW (11.5-15.5) % Lymphocytes # (1.0-4.8) k/uL Potassium (3.5-5.1) mmol/L BUN (9-20) mg/dL Creatinine (0.66-1.25) mg/dL Glucose (74-99) mg/dL Troponin I 0.142 H* 0.143 H* (0.000-0.034) ng/mL Total Protein (6.3-8.2) g/dL Albumin (3.5-5.0) g/dL Urine Protein 1+ H (Negative) Urine Ketones Trace H (Negative) Urine Blood Small H (Negative) Ur Leukocyte Esterase Large H (Negative) Urine RBC 17 H (0-5) /hpf Urine WBC 77 H (0-5) /hpf Urine Bacteria Rare H (None) /hpf Hyaline Casts 3 H (0-2) /lpf Urine Mucus Rare H (None) /hpf Urine Yeast (Budding) Many H (None) /hpf Thrombosis Risk Factor Assmnt - DVT/VTE Prophylaxis DVT/VTE Prophylaxis: Pharmacologic Prophylaxis ordered - Choose All That Apply Any of the Below Risk Factors Present?: Yes Each Factor Represents 1 point: Age 41-60 years, Obesity (BMI >25) Thrombosis Risk Factor Assessment Total Risk Factor Score: 2 Thrombosis Risk Factor Assessment Level: Low Risk Assessment and Plan Assessment: Acute on chronic CHF with systolic dysfunction ejection fraction 30 to 35% Uncontrolled hypertension Elevated troponin level likely type II DC CKD stage IV with baseline creatinine 1.8-2 Persistent atrial fibrillation status post ALEXIA and cardioversion on 08/09/2023 Left heel unstageable diabetic foot ulcer with surrounding cellulitis. Currently on antibiotic course with ceftriaxone 2 g every 12 at home from recent discharge on 08/11/2023. Generalized weakness and fatigue and unable to ambulate get out of bed. Coronary artery with history of CABG and stent placement Diabetes type 2 insulin-dependent Hypothyroidism Hyperlipidemia Prior history of smoking DVT prophylaxis patient is already on Eliquis Diabetic peripheral neuropathy Iron deficiency anemia Plan: Patient will be continued on telemonitoring. Continue with IV Lasix 40 mg daily. Patient is on torsemide 10 mg daily at home. Started back on aspirin, Coreg 25 mg twice daily, losartan 50 mg twice daily, hydralazine 50 mg 3 times daily and anticoagulation with Eliquis. Continue to monitor renal function. Cardiology will be consulted. Continue with antibiotics ceftriaxone 2 g every 24 hours as per recent ID recommendations for left heel diabetic ulcer/infection. Continue with pain management and follow-up closely. Prognosis is guarded. PT OT will be consulted. Time with Patient: Greater than 30
[2023-08-12] MEDS: APIXABAN 5 MG TAB PO SCH (23:08)
[2023-08-12] MEDS: ATORVASTATIN 10 MG TAB PO SCH (23:08)
[2023-08-12] MEDS: BALSALAZIDE DISODIUM 750 MG CAPSULE PO SCH (23:09)
[2023-08-12] MEDS: INSULIN DETEMIR (LEVEMIR) 100 UNIT/ML SYR SQ SCH (23:09)
[2023-08-12] MEDS: GABAPENTIN 100 MG CAP PO SCH (23:10)
[2023-08-12] MEDS: FAMOTIDINE 20 MG TAB PO SCH (23:10)
[2023-08-13 06:45] LABS: Basophils # (A) 0.1 k/uL (0-0.2); Basophils % (A) 1 %; Eosinophils # (A) 0.2 k/uL (0-0.7); Eosinophils % (A) 4 %; HCT 34.2 % (39.0-53.0); Hypochromasia Moderate; Lymphocytes # (A) 0.5 k/uL (1.0-4.8); Lymphocytes % (A) 7 %; MCH 27.3 pg (25.0-35.0); MCHC 29.3 g/dL (31.0-37.0); MCV 93.3 fL (80.0-100.0); Monocytes # (A) 0.6 k/uL (0-1.0); Monocytes % (A) 9 %; Neutrophils # (A) 5.3 k/uL (1.3-7.7); Neutrophils % (A) 78 %; Platelet Count 224 k/uL (150-450); RBC 3.67 m/uL (4.30-5.90); RDW 15.3 % (11.5-15.5); WBC 6.8 k/uL (3.8-10.6)
[2023-08-13 07:02] LABS: African American GFR (CKD) 42 (>60 ml/min/1.73 sqM); Anion Gap 6 mmol/L; Blood Urea Nitrogen 26 mg/dL (9-20); Calcium 8.6 mg/dL (8.4-10.2); Carbon Dioxide 29 mmol/L (22-30); Chloride 105 mmol/L (98-107); Glucose 97 mg/dL (74-99); Non-African American GFR(CKD) 37 (>60 ml/min/1.73 sqM); Sodium 140 mmol/L (137-145)
[2023-08-13 07:26] LABS: Glucose,Whole Blood 98 mg/dL (70-110)
[2023-08-13] MEDS: LEVOTHYROXINE 100 MCG TAB PO SCH (07:36)
[2023-08-13] MEDS: INSULIN ASPART (NovoLOG) 100 UNIT/ML VIAL SQ SCH (07:37)
[2023-08-13] MEDS ORDERED: cefTRIAXone 2 GM VIAL IVPB SCH (09:00)
[2023-08-13] MEDS: FUROSEMIDE 10 MG/ML 4 ML VIAL IV SCH ×2 (09:24→21:32)
[2023-08-13] MEDS: DAPAGLIFLOZIN PROPANEDIOL 10 MG TABLET PO SCH (09:25)
[2023-08-13] MEDS: FAMOTIDINE 20 MG TAB PO SCH (09:25)
[2023-08-13] MEDS: ASPIRIN 81 MG PO SCH (09:26)
--- NOTE | 2023-08-13 10:35 | P.CRDCN ---
History of Present Illness Consult date: 08/13/23 Reason for Consult (text): Acute on chronic congestive heart failure History of present illness: This is a 67-year-old male patient of Dr. Chávez with past medical history of coronary artery disease status post PCI as well as CABG, cardiomyopathy, hypertension, hyperlipidemia, persistent atrial fibrillation, diabetes mellitus type 2, chronic kidney disease stage III. We have been asked to evaluate the patient for acute on chronic CHF. Patient had a recent hospitalization earlier in July for which she was treated for diabetic foot ulcer/cellulitis of the left foot discharged home on IV antibiotics. Patient was seen by cardiology during that hospitalization for atrial fibrillation and underwent ALEXIA and cardioversion on 08/08. Patient presented to the emergency center due to inability to care for himself at home. He has been urinating and defecating on himself. EMS found him to be hypoxic. Patient denies having any shortness of breath, no chest pain, no dizziness, no palpitations. No PND. He has occasional cough. No fev er. No blood in his urine or stools. He denies any syncopal episodes. He denies history of being told he had CHF. He has lower extremity edema that comes and goes. He states he has not walked in 1 to 2 weeks. He denies any increased shortness of breath with activity nor at rest. Patient is seen today in the emergency center waiting for bed on the cardiac stepdown unit. Blood pressure 163/65, heart rate 56, pulse ox 98% on room air. Patient is afebrile. Patient has been started on IV Lasix 40 mg daily. EKG: Sinus rhythm with first-degree block, IVCD. Chest x-ray: Cardiomegaly and mild pulmonary vascular congestion. Laboratory studies: WBC 6.8, hemoglobin 10. BUN 26 creatinine 1.87, potassium 3 Home cardiac medications: Amiodarone 200 mg daily, Eliquis 5 mg twice daily, aspirin 81 mg daily, atorvastatin 10 mg daily, Coreg 25 mg twice daily, hydralazine 50 mg 3 times daily, losartan 50 mg twice daily, Demadex 10 mg daily, also on levothyroxine 100 mcg daily. 08/09/2023: ALEXIA and cardioversion. Mild mitral regurgitation. No evidence of PFO. Left atrial appendage is free of clot. EF 25 to 30%. Lexiscan Cardiolite stress test performed in the office on 03/01/2020 revealed inc onclusive EKG part of the stress test due to baseline EKG abnormalities. Abnormal nuclear scan showing evidence of prior anterior wall [place] with mild LV dysfunction without any ischemia. Review Of Systems: At the time of my exam: CONSTITUTIONAL: Denies fever or chills. HEENT: Denies blurred vision, vision changes, or eye pain. Denies hemoptysis CARDIOVASCULAR: Denies chest pain. Denies orthopnea. Denies PND. Denies palpitations RESPIRATORY: Denies shortness of breath. GASTROINTESTINAL: Denies abdominal pain. Denies nausea or vomiting. HEMATOLOGIC: Denies bleeding disorders. GENITOURINARY: Denies any blood in urine. SKIN: Denies puritis. Denies rash. Physical examination: Gen: This is a 67-year-old male in no acute distress. Patient is in supine position with no respiratory distress VS: reviewed HEENT: Head is atraumatic, normocephalic. Pupils equal, round. Sclerae is anicteric. NECK: Supple. No JVD. LUNGS: Clear to auscultation. No wheezes or rhonchi. No intercostal retraction s. HEART: Regular rate and rhythm. No murmur. ABDOMEN: Soft No tenderness. EXTREMITIES: Palpable pulses bilaterally. Mild edema. Dressing in place to the left foot and ankle. NEUROLOGICAL: Patient is awake, alert. Assessment: Ischemic cardiomyopathy without clear evidence of acute heart failure on examination Generalized debility and inability to care for himself Moderate protein calorie malnutrition leading to edema and poor healing Left foot diabetic ulcer, MRSA Chronic systolic heart failure with previous EF of 20 to 25% and most recently at 25 to 30%, although EF had improved to 30 to 35% in February 2023 Coronary artery disease with previous PCI and CABG Hypertension Hyperlipidemia Persistent atrial fibrillation currently in sinus rhythm Diabetes mellitus type 2 Chronic kidney disease stage III Plan: Resume patient's home cardiac medications Continue IV Lasix 40 mg twice daily for 1 day and then resume oral torsemide in the morning Add Farxiga 10 mg daily Monitor CARLO, daily weights, electrolytes and renal function No need to repeat echocardiogram Recommend consult to ID or Dr. Galindo for diabetic wound Further recommendations to follow based upon clinical course Thank you kindly for this consultation. Nurse practitioner note has been reviewed, I agree with documented findings and plan of care. Patient was seen and examined. Past Medical History Past Medical History: Diabetes Mellitus, Hyperlipidemia, Hypertension, Thyroid Disorder History of Any Multi-Drug Resistant Organisms: None Reported Date of last positivie culture/infection: 04/21/23 MDRO Source:: Left Foot Past Surgical History: Coronary Bypass/CABG, Heart Catheterization With Stent Additional Past Surgical History / Comment(s): left great and second toe removal. bilat carpal tunnel. neck fusion 5-6-7. triple bypass Past Anesthesia/Blood Transfusion Reactions: No Reported Reaction Additional Past Anesthesia/Blood Transfusion Reaction / Comment(s): no blood transfusion Date of Last Stent Placement:: 02/2002 Past Psychological History: No Psychological Hx Reported Smoking Status: Former smoker Past Alcohol Use History: None Reported Additional Past Alcohol Use History / Comment(s): quit smoking at 38 Past Drug Use History: None Reported - Past Family History Father History Unknown: Yes Mother History Unknown: Yes Medications and Allergies Home Medications Medication Instructions Recorded Confirmed Type Ferrous Sulfate [Iron (65 MG 325 mg PO DAILY 03/04/21 08/12/23 History Elemental)] Hydroxychloroquine Sulfate 200 mg PO BID 03/04/21 08/12/23 History [Plaquenil] Levothyroxine Sodium [Synthroid] 100 mcg PO DAILY@0600 03/04/21 08/12/23 History Famotidine [Pepcid] 20 mg PO BID #60 tablet 03/12/21 08/12/23 Rx Meclizine [Antivert] 12.5 mg PO TID PRN 30 Days #90 03/13/21 08/12/23 Rx tablet Balsalazide Disodium [Colazal] 2,250 mg PO BID 03/17/23 08/12/23 History Loratadine [Claritin] 10 mg PO DAILY 03/17/23 08/12/23 History Apixaban [Eliquis] 5 mg PO BID #60 tab 06/11/23 08/12/23 Rx Atorvastatin [Lipitor] 10 mg PO HS 08/01/23 08/12/23 History HYDROcodone/APAP 5-325MG [[place] 1 tab PO Q6H PRN 08/01/23 08/12/23 History 5-325] Insulin Lispro See Protocol SQ TID-W/MEALS 08/01/23 08/12/23 History Melatonin 10 mg PO HS 08/01/23 08/12/23 History Ondansetron [Zofran] 4 mg PO TID PRN 08/01/23 08/12/23 History Acetaminophen Tab [Tylenol] 650 mg PO Q6HR PRN tab 08/11/23 08/12/23 Rx Amiodarone [Cordarone] 200 mg PO DAILY #30 tab 08/11/23 08/12/23 Rx Aspirin 81 mg PO DAILY #30 tab 08/11/23 08/12/23 Rx Insulin Glargine-Yfgn [Semglee 15 unit SQ HS #0 08/11/23 08/12/23 Rx (Yfgn) Pen] Losartan [Cozaar] 50 mg PO BID #60 tab 08/11/23 08/12/23 Rx Torsemide [Demadex] 10 mg PO DAILY 30 Days #15 tab 08/11/23 08/12/23 Rx carvediloL [Coreg*] 25 mg PO BID-W/MEALS 30 Days #120 08/11/23 08/12/23 Rx tab cefTRIAXone [Rocephin] 2 gm IVPB Q24HR each 08/11/23 08/12/23 Rx hydrALAZINE HCL [Apresoline] 50 mg PO TID #90 tab 08/11/23 08/12/23 Rx Gabapentin [Neurontin] 100 mg PO Q8H 08/12/23 08/12/23 History Allergies Allergy/AdvReac Type Severity Reaction Status Date / Time Penicillins Allergy Unknown Verified 08/12/23 14:11 Childhood Physical Exam Vitals: Vital Signs Temp Pulse Resp BP Pulse Ox 08/13/23 06:05 56 L 163/65 98 08/13/23 01:00 64 18 158/74 98 08/12/23 21:45 58 L 18 177/50 100 08/12/23 20:46 97.4 F L 62 18 181/73 100 08/12/23 19:42 66 20 193/72 99 08/12/23 17:10 98.1 F 70 20 189/98 97 08/12/23 14:02 66 18 195/73 99 08/12/23 13:30 89 L 08/12/23 13:14 96 08/12/23 12:08 98.7 F 71 20 184/85 97 Intake and Output 08/12/23 08/13/23 08/13/23 22:59 06:59 14:59 Output Total 950 Balance -950 Output: Urine 950 Other: Weight 99.79 kg Results 08/13/23 06:10 08/13/23 06:10 Cardiac Enzymes 08/12/23 08/12/23 08/12/23 Range/Units 13:00 13:00 17:28 AST 23 (17-59) U/L Troponin I 0.122 H* 0.142 H* (0.000-0.034) ng/mL 08/12/23 Range/Units 20:27 AST (17-59) U/L Troponin I 0.143 H* (0.000-0.034) ng/mL CBC 08/12/23 08/13/23 Range/Units 13:00 06:10 WBC 5.9 6.8 (3.8-10.6) k/uL RBC 3.58 L 3.67 L (4.30-5.90) m/uL Hgb 10.0 L 10.0 L (13.0-17.5) gm/dL Hct 33.1 L 34.2 L (39.0-53.0) % Plt Count 232 224 (150-450) k/uL Comprehensive Metabolic Panel 08/12/23 08/13/23 Range/Units 13:00 06:10 Sodium 140 140 (137-145) mmol/L Potassium 3.4 L 3.0 L (3.5-5.1) mmol/L Chloride 106 105 (98-107) mmol/L Carbon Dioxide 26 29 (22-30) mmol/L BUN 28 H 26 H (9-20) mg/dL Creatinine 2.00 H 1.87 H (0.66-1.25) mg/dL Glucose 108 H 97 (74-99) mg/dL Calcium 8.8 8.6 (8.4-10.2) mg/dL AST 23 (17-59) U/L ALT 8 (4-49) U/L Alkaline Phosphatase 60 (38-126) U/L Total Protein 5.5 L (6.3-8.2) g/dL Albumin 3.0 L (3.5-5.0) g/dL Current Medications Generic Name Dose Route Start Last Admin Trade Name Freq PRN Reason Stop Dose Admin Acetaminophen 650 mg 08/12/23 21:41 Acetaminophen Tab 325 Mg Tab PO Q6HR PRN Mild Pain or Fever > 100.5 Hydrocodone Bitart/Acetaminophen 1 each 08/12/23 22:00 Hydrocodone/Apap 5-325mg 1 Each Tab PO Q6H PRN Pain Amiodarone HCl 200 mg 08/12/23 18:15 08/12/23 18:31 Amiodarone 200 Mg Tab PO 200 mg DAILY FELA Administration Apixaban 5 mg 08/12/23 22:00 08/12/23 23:08 Apixaban 5 Mg Tab PO 5 mg BID FELA Administration Protocol Aspirin 81 mg 08/13/23 09:00 Aspirin 81 Mg PO DAILY FELA Atorvastatin Calcium 10 mg 08/12/23 21:45 08/12/23 23:08 Atorvastatin 10 Mg Tab PO 10 mg HS FELA Administration Balsalazide 2,250 mg 08/12/23 22:00 08/12/23 23:09 Balsalazide Disodium 750 Mg Capsule PO 2,250 mg BID FELA Administration Carvedilol 25 mg 08/12/23 18:15 08/12/23 18:31 Carvedilol 12.5 Mg Tab PO 25 mg BID-W/MEALS FELA Administration Dextrose/Water 25 ml 08/12/23 21:47 Dextrose 50% Syringe 50 Ml IVP PER PROTOCOL PRN Hypoglycemia Protocol Dextrose/Water 50 ml 08/12/23 21:47 Dextrose 50% Syringe 50 Ml IVP PER PROTOCOL PRN Hypoglycemia Protocol Famotidine 20 mg 08/12/23 22:00 08/12/23 23:10 Famotidine 20 Mg Tab PO 20 mg BID FELA Administration Furosemide 40 mg 08/13/23 09:00 Furosemide 10 Mg/Ml 4 Ml Vial IV DAILY FELA Gabapentin 100 mg 08/12/23 22:00 08/12/23 23:10 Gabapentin 100 Mg Cap PO 100 mg Q8H FELA Administration Hydralazine HCl 50 mg 08/12/23 18:15 08/12/23 21:00 Hydralazine Hcl 50 Mg Tab PO 50 mg TID FELA Administration Hydroxychloroquine Sulfate 200 mg 08/13/23 09:00 Hydroxychloroquine Sulfate 200 Mg Tab PO BID FELA Ceftriaxone Sodium 2 gm/ 50 mls @ 100 mls/hr 08/12/23 23:00 08/12/23 23:10 Sodium Chloride IVPB 100 mls/hr Q24H FELA Administration Insulin Aspart 0 unit 08/13/23 07:30 Insulin Aspart (Novolog) 100 Unit/Ml Vial SQ [facility] Protocol Insulin Detemir 15 unit 08/12/23 22:00 08/12/23 23:09 Insulin Detemir (Levemir) 100 Unit/Ml Syr SQ 15 unit HS FELA Administration Levothyroxine Sodium 100 mcg 08/13/23 06:00 Levothyroxine 100 Mcg Tab PO DAILY@0600 FELA Losartan Potassium 50 mg 08/12/23 21:00 08/12/23 21:00 Losartan 50 Mg Tab PO 50 mg BID FELA Administration Naloxone HCl 0.2 mg 08/12/23 14:52 Naloxone 0.4 Mg/Ml 1 Ml Vial IV Q2M PRN Opioid Reversal Petrolatum 1 applic 08/12/23 20:50 Zinc Oxide Paste (Z-Guard) 1 Applic TOPICAL DAILY PRN Wound Healing Protocol Intake and Output 08/12/23 08/13/23 08/13/23 22:59 06:59 14:59 Output Total 950 Balance -950 Output: Urine 950 Other: Weight 99.79 kg 08/13/23 06:10 08/13/23 06:10
[2023-08-13] MEDS: POTASSIUM CHLORIDE ER 20 MEQ TAB.ER PO STA ×2 (10:52→17:41)
[2023-08-13] MEDS: HYDROXYCHLOROQUINE SULFATE 200 MG TAB PO SCH (11:52)
[2023-08-13] MEDS: FLUCONAZOLE 100 MG TAB PO SCH (12:07)
[2023-08-13 12:14] LABS: Glucose,Whole Blood 68 mg/dL (70-110)
[2023-08-13] MEDS: HYDROcodone/APAP 5-325MG 1 EACH TAB PO PRN (12:18)
[2023-08-13 12:39] LABS: Glucose,Whole Blood 70 mg/dL (70-110)
--- NOTE | 2023-08-13 14:37 | P.PN ---
Subjective Progress Note Date: 08/13/23 67-year-old male patient, history of coronary artery disease status post PCI as well as CABG, cardiomyopathy, hypertension, hyperlipidemia, persistent atrial fibrillation, diabetes mellitus type 2, chronic kidney disease stage III, recent hospitalization earlier in July for which she was treated for diabetic foot ulcer/cellulitis of the left foot discharged home on IV antibiotics, seen by cardiology during that hospitalization for atrial fibrillation and underwent ALEXIA and cardioversion on 08/08. Patient presented to the emergency center due to inability to care for himself at home. He has been urinating and defecating on himself. EMS found him to be hypoxic. Patient denies having any shortness of breath, no chest pain, no dizziness, no palpitations. No PND. He has occasional cough. No fever. No blood in his urine or stools. He denies any syncopal episodes. He denies history of being told he had CHF. He has lower extremity edema that comes and goes. He states he has not walked in 1 to 2 weeks. He denies any increased shortness of breath with activity nor at rest. Patient is seen today in the emergency center waiting for bed on the cardiac stepdown unit. Blood pressure 163/65, heart rate 56, pulse ox 98% on room air. Patient is afebrile. Patient has been started on IV Lasix 40 mg daily. EKG: Sinus rhythm with first-degree block, IVCD. Chest x-ray: Cardiomegaly and mild pulmonary vascular congestion. 08/09/2023: ALEXIA and cardioversion. Mild mitral regurgitation. No evidence of PFO. Left atrial appendage is free of clot. EF 25 to 30%. Lexiscan Cardiolite stress test performed in the office on 03/01/2020 revealed inconclusive EKG part of the stress test due to baseline EKG abnormalities. Abnormal nuclear scan showing evidence of prior anterior wall NM with mild LV dysfunction without any ischemia. Objective - Vital Signs Vital signs: Vital Signs Temp 97.4 F L 08/12/23 20:46 Pulse 48 L 08/13/23 09:28 Resp 16 08/13/23 09:28 BP 153/68 08/13/23 09:28 Pulse Ox 99 08/13/23 09:28 FiO2 Intake & Output 08/12/23 08/13/23 08/13/23 18:59 06:59 18:59 Output Total 950 1100 Balance -950 -1100 Weight 99.79 kg 99.79 kg Output: Urine 950 1100 - Exam HEENT: Head is atraumatic, normocephalic. Pupils equal, round. Sclerae is anicteric. NECK: Supple. No JVD. LUNGS: Clear to auscultation. No wheezes or rhonchi. No intercostal retractions. HEART: Regular rate and rhythm. No murmur. ABDOMEN: Soft No tenderness. EXTREMITIES: Palpable pulses bilaterally. Mild edema. Dressing in place to the left foot and ankle. NEUROLOGICAL: Patient is awake, alert. - Labs CBC & Chem 7: 08/13/23 06:10 08/13/23 06:10 Labs: Abnormal Lab Results - Last 24 Hours (Table) 08/12/23 08/12/23 08/12/23 Range/Units 13:00 13:00 13:00 RBC 3.58 L (4.30-5.90) m/uL Hgb 10.0 L (13.0-17.5) gm/dL Hct 33.1 L (39.0-53.0) % MCHC 30.2 L (31.0-37.0) g/dL RDW 15.6 H (11.5-15.5) % Lymphocytes # 0.5 L (1.0-4.8) k/uL Potassium 3.4 L (3.5-5.1) mmol/L BUN 28 H (9-20) mg/dL Creatinine 2.00 H (0.66-1.25) mg/dL Glucose 108 H (74-99) mg/dL Troponin I 0.122 H* (0.000-0.034) ng/mL Total Protein 5.5 L (6.3-8.2) g/dL Albumin 3.0 L (3.5-5.0) g/dL Urine Protein (Negative) Urine Ketones (Negative) Urine Blood (Negative) Ur Leukocyte Esterase (Negative) Urine RBC (0-5) /hpf Urine WBC (0-5) /hpf Urine Bacteria (None) /hpf Hyaline Casts (0-2) /lpf Urine Mucus (None) /hpf Urine Yeast (Budding) (None) /hpf 08/12/23 08/12/23 08/12/23 Range/Units 17:10 17:28 20:27 RBC (4.30-5.90) m/uL Hgb (13.0-17.5) gm/dL Hct (39.0-53.0) % MCHC (31.0-37.0) g/dL RDW (11.5-15.5) % Lymphocytes # (1.0-4.8) k/uL Potassium (3.5-5.1) mmol/L BUN (9-20) mg/dL Creatinine (0.66-1.25) mg/dL Glucose (74-99) mg/dL Troponin I 0.142 H* 0.143 H* (0.000-0.034) ng/mL Total Protein (6.3-8.2) g/dL Albumin (3.5-5.0) g/dL Urine Protein 1+ H (Negative) Urine Ketones Trace H (Negative) Urine Blood Small H (Negative) Ur Leukocyte Esterase Large H (Negative) Urine RBC 17 H (0-5) /hpf Urine WBC 77 H (0-5) /hpf Urine Bacteria Rare H (None) /hpf Hyaline Casts 3 H (0-2) /lpf Urine Mucus Rare H (None) /hpf Urine Yeast (Budding) Many H (None) /hpf 08/13/23 08/13/23 Range/Units 06:10 06:10 RBC 3.67 L (4.30-5.90) m/uL Hgb 10.0 L (13.0-17.5) gm/dL Hct 34.2 L (39.0-53.0) % MCHC 29.3 L (31.0-37.0) g/dL RDW (11.5-15.5) % Lymphocytes # 0.5 L (1.0-4.8) k/uL Potassium 3.0 L (3.5-5.1) mmol/L BUN 26 H (9-20) mg/dL Creatinine 1.87 H (0.66-1.25) mg/dL Glucose (74-99) mg/dL Troponin I (0.000-0.034) ng/mL Total Protein (6.3-8.2) g/dL Albumin (3.5-5.0) g/dL Urine Protein (Negative) Urine Ketones (Negative) Urine Blood (Negative) Ur Leukocyte Esterase (Negative) Urine RBC (0-5) /hpf Urine WBC (0-5) /hpf Urine Bacteria (None) /hpf Hyaline Casts (0-2) /lpf Urine Mucus (None) /hpf Urine Yeast (Budding) (None) /hpf Assessment and Plan Assessment: Acute on chronic CHF with systolic dysfunction ejection fraction 30 to 35% Uncontrolled hypertension Elevated troponin level likely type II NM CKD stage IV with baseline creatinine 1.8-2 Persistent atrial fibrillation status post ALEXIA and cardioversion on 08/09/2023 Left heel unstageable diabetic foot ulcer with surrounding cellulitis. Currently on antibiotic course with ceftriaxone 2 g every 12 at home from recent discharge on 08/11/2023. Generalized weakness and fatigue and unable to ambulate get out of bed. Coronary artery with history of CABG and stent placement Diabetes type 2 insulin-dependent Hypothyroidism Hyperlipidemia Prior history of smoking DVT prophylaxis patient is already on Eliquis Diabetic peripheral neuropathy Iron deficiency anemia Plan: Patient will be continued on telemonitoring. Continue with IV Lasix 40 mg daily. Patient is on torsemide 10 mg daily at home. Started back on aspirin, Coreg 25 mg twice daily, losartan 50 mg twice daily, hydralazine 50 mg 3 times daily and anticoagulation with Eliquis. Continue to monitor renal function. Cardiology will be consulted. Continue with antibiotics ceftriaxone 2 g every 24 hours as per recent ID recommendations for left heel diabetic ulcer/infection. Continue with pain management and follow-up closely. Prognosis is guarded. PT OT will be consulted.
[2023-08-13 16:41] LABS: Glucose,Whole Blood 73 mg/dL (70-110)
[2023-08-13] MEDS: COLLAGENASE 250 UNIT/GM OINTMENT 30 GM TUBE TOPICAL SCH (17:41)
[2023-08-13] MEDS: ZINC OXIDE PASTE (Z-GUARD) 1 APPLIC TOPICAL PRN (21:34)
[2023-08-14 06:16] LABS: Glucose,Whole Blood 168 mg/dL (70-110)
[2023-08-14 08:58] LABS: African American GFR (CKD) 45 (>60 ml/min/1.73 sqM); Anion Gap 6 mmol/L; Blood Urea Nitrogen 24 mg/dL (9-20); Calcium 8.8 mg/dL (8.4-10.2); Carbon Dioxide 31 mmol/L (22-30); Chloride 104 mmol/L (98-107); Glucose 145 mg/dL (74-99); Non-African American GFR(CKD) 39 (>60 ml/min/1.73 sqM); Potassium 3.6 mmol/L (3.5-5.1); Sodium 141 mmol/L (137-145)
[2023-08-14 09:20] LABS: Basophils # (A) 0.1 k/uL (0-0.2); Basophils % (A) 0 %; Eosinophils # (A) 0.2 k/uL (0-0.7); Eosinophils % (A) 2 %; HCT 36.7 % (39.0-53.0); Hypochromasia Moderate; Lymphocytes # (A) 0.5 k/uL (1.0-4.8); Lymphocytes % (A) 4 %; MCH 27.6 pg (25.0-35.0); MCHC 29.8 g/dL (31.0-37.0); MCV 92.4 fL (80.0-100.0); Mean Platelet Volume 11.9; Monocytes # (A) 0.7 k/uL (0-1.0); Monocytes % (A) 6 %; Neutrophils # (A) 10.1 k/uL (1.3-7.7); Neutrophils % (A) 86 %; RBC 3.97 m/uL (4.30-5.90); RDW 15.5 % (11.5-15.5); WBC 11.7 k/uL (3.8-10.6)
[2023-08-14] MEDS: TORSEMIDE 20 MG TAB PO SCH (09:53)
--- NOTE | 2023-08-14 09:56 | P.CONS ---
History of Present Illness - Reason for Consult Consult date: 08/13/23 Infected left heel ulcer Requesting physician: Asa Snider - Chief Complaint Weakness unable to take care of himself at home x 1 day - History of Present Illness Patient is a 67-year-old male with a past medical history negative for hypertension hyperlipidemia diabetes mellitus history of left heel infected pressure ulcer status post debridement with a recent culture positive for Proteus Christina and staph epi patient did get a PICC line and was discharged home on IV Rocephin as the patient has no care home days left patient apparently was not able to take care of himself eat or drink or take his medication EMS was called who found the patient in the bed covered with a stool and urine and subsequently has been brought into the hospital for further evaluation on presentation to the hospital the patient was afebrile and no fever have recorded subsequently patient was not tachycardic hypotensive or hypoxic patient did have a white count of 5 point 9 repeat is 6.8, BUN/creatinine mildly elevated did have a positive UA, patient started on ceftriaxone infectious disease was consulted for further management of antibiotic therapy. Patient denies having any chest pain shortness of breath did have occasional cough did have some nausea and vomiting no abdominal pain and denies having any worsening pain to the left heel wound area Review of Systems Positive point and negatives has been mentioned in the HPI, complete review of systems was performed and all other systems are negative Past Medical History Past Medical History: Diabetes Mellitus, Hyperlipidemia, Hypertension, Thyroid Disorder History of Any Multi-Drug Resistant Organisms: None Reported Year Discovered:: 04/21/23 MDRO Source:: Left Foot Past Surgical History: Coronary Bypass/CABG, Heart Catheterization With Stent Additional Past Surgical History / Comment(s): left great and second toe removal. bilat carpal tunnel. neck fusion 5-6-7. triple bypass Past Anesthesia/Blood Transfusion Reactions: No Reported Reaction Additional Past Anesthesia/Blood Transfusion Reaction / Comm: no blood transfusion Date of Last Stent Placement:: 02/2002 Past Psychological History: No Psychological Hx Reported Smoking Status: Former smoker Past Alcohol Use History: None Reported Additional Past Alcohol Use History / Comment(s): quit smoking at 38 Past Drug Use History: None Reported - Past Family History Father History Unknown: Yes Mother History Unknown: Yes Medications and Allergies Home Medications Medication Instructions Recorded Confirmed Type Ferrous Sulfate [Iron (65 MG 325 mg PO DAILY 03/04/21 08/12/23 History Elemental)] Hydroxychloroquine Sulfate 200 mg PO BID 03/04/21 08/12/23 History [Plaquenil] Levothyroxine Sodium [Synthroid] 100 mcg PO DAILY@0600 03/04/21 08/12/23 History Meclizine [Antivert] 12.5 mg PO TID PRN 30 Days #90 03/13/21 08/12/23 Rx tablet Balsalazide Disodium [Colazal] 2,250 mg PO BID 03/17/23 08/12/23 History Loratadine [Claritin] 10 mg PO DAILY 03/17/23 08/12/23 History Apixaban [Eliquis] 5 mg PO BID #60 tab 06/11/23 08/12/23 Rx Atorvastatin [Lipitor] 10 mg PO HS 08/01/23 08/12/23 History Insulin Lispro See Protocol SQ TID-W/MEALS 08/01/23 08/12/23 History Melatonin 10 mg PO HS 08/01/23 08/12/23 History Ondansetron [Zofran] 4 mg PO TID PRN 08/01/23 08/12/23 History Acetaminophen Tab [Tylenol] 650 mg PO Q6HR PRN tab 08/11/23 08/12/23 Rx Amiodarone [Cordarone] 200 mg PO DAILY #30 tab 08/11/23 08/12/23 Rx Aspirin 81 mg PO DAILY #30 tab 08/11/23 08/12/23 Rx Insulin Glargine-Yfgn [Semglee 15 unit SQ HS #0 08/11/23 08/12/23 Rx (Yfgn) Pen] Losartan [Cozaar] 50 mg PO BID #60 tab 08/11/23 08/12/23 Rx Torsemide [Demadex] 10 mg PO DAILY 30 Days #15 tab 08/11/23 08/12/23 Rx hydrALAZINE HCL [Apresoline] 50 mg PO TID #90 tab 08/11/23 08/12/23 Rx Gabapentin [Neurontin] 100 mg PO Q8H 08/12/23 08/12/23 History Dapagliflozin Propanediol [Farxiga] 10 mg PO DAILY #30 tab 08/25/23 Rx Famotidine [Pepcid] 20 mg PO BID 30 Days #60 tablet 08/25/23 Rx HYDROcodone/APAP 5-325MG [Stacy 1 tab PO HS PRN 5 Days #5 tab 08/25/23 Rx 5-325] Insulin Detemir (Levemir) [Levemir] 8 unit SQ HS #10 gm 08/25/23 Rx Isosorbide Mononitrate ER [Imdur] 30 mg PO DAILY #30 tab 08/25/23 Rx amLODIPine [Norvasc] 10 mg PO DAILY #30 tab 08/25/23 Rx carvediloL [Coreg] 6.25 mg PO BID 30 Days #60 tablet 08/25/23 Rx cefUROXime axetiL [Ceftin] 500 mg PO BID #28 tab 08/25/23 Rx metroNIDAZOLE [Flagyl] 500 mg PO TID #42 tab 08/25/23 Rx Allergies Allergy/AdvReac Type Severity Reaction Status Date / Time Penicillins Allergy Unknown Verified 08/12/23 14:11 Childhood Physical Exam Vitals: Vital Signs Temp Pulse Resp BP Pulse Ox 08/13/23 14:15 54 L 17 160/82 99 08/13/23 13:10 51 L 18 153/83 100 08/13/23 12:13 97.9 F 51 L 16 143/67 94 L 08/13/23 10:43 47 L 94 L 08/13/23 09:28 48 L 16 153/68 97 08/13/23 07:39 52 L 18 162/78 98 08/13/23 06:05 56 L 163/65 98 08/13/23 01:00 64 18 158/74 98 08/12/23 21:45 58 L 18 177/50 100 08/12/23 20:46 97.4 F L 62 18 181/73 100 08/12/23 19:42 66 20 193/72 99 08/12/23 17:10 98.1 F 70 20 189/98 97 Intake and Output 08/13/23 08/13/23 08/13/23 06:59 14:59 22:59 Output Total 1100 Balance -1100 Output: Urine 1100 GENERAL DESCRIPTION: Elderly male lying in bed, no distress. No tachypnea or accessory muscle of respiration use. HEENT: Shows Pallor , no scleral icterus. Oral mucous membrane is dry. No pharyngeal erythema or thrush NECK: Trachea central, no thyromegaly. LUNGS: Unlabored breathing. Clear to auscultation anteriorly. No wheeze or crackle. HEART: S1, S2, regular rate and rhythm. No loud murmur ABDOMEN: Soft, no tenderness , guarding or rigidity, no organomegaly EXTREMITIES: Left heel with the necrotic wound minimal surrounding redness SKIN: No rash, no masses palpable. NEUROLOGICAL: The patient is awake, alert, oriented x3, mood and affect normal. Results CBC & Chem 7: 08/15/23 06:27 08/16/23 09:24 Labs: Abnormal Lab Results - Last 24 Hours (Table) 08/12/23 08/12/23 08/12/23 Range/Units 17:10 17:28 20:27 RBC (4.30-5.90) m/uL Hgb (13.0-17.5) gm/dL Hct (39.0-53.0) % MCHC (31.0-37.0) g/dL Lymphocytes # (1.0-4.8) k/uL Potassium (3.5-5.1) mmol/L BUN (9-20) mg/dL Creatinine (0.66-1.25) mg/dL POC Glucose (mg/dL) (70-110) mg/dL Troponin I 0.142 H* 0.143 H* (0.000-0.034) ng/mL Urine Protein 1+ H (Negative) Urine Ketones Trace H (Negative) Urine Blood Small H (Negative) Ur Leukocyte Esterase Large H (Negative) Urine RBC 17 H (0-5) /hpf Urine WBC 77 H (0-5) /hpf Urine Bacteria Rare H (None) /hpf Hyaline Casts 3 H (0-2) /lpf Urine Mucus Rare H (None) /hpf Urine Yeast (Budding) Many H (None) /hpf 08/13/23 08/13/23 08/13/23 Range/Units 06:10 06:10 12:12 RBC 3.67 L (4.30-5.90) m/uL Hgb 10.0 L (13.0-17.5) gm/dL Hct 34.2 L (39.0-53.0) % MCHC 29.3 L (31.0-37.0) g/dL Lymphocytes # 0.5 L (1.0-4.8) k/uL Potassium 3.0 L (3.5-5.1) mmol/L BUN 26 H (9-20) mg/dL Creatinine 1.87 H (0.66-1.25) mg/dL POC Glucose (mg/dL) 68 L (70-110) mg/dL Troponin I (0.000-0.034) ng/mL Urine Protein (Negative) Urine Ketones (Negative) Urine Blood (Negative) Ur Leukocyte Esterase (Negative) Urine RBC (0-5) /hpf Urine WBC (0-5) /hpf Urine Bacteria (None) /hpf Hyaline Casts (0-2) /lpf Urine Mucus (None) /hpf Urine Yeast (Budding) (None) /hpf Assessment and Plan (1) Cellulitis of left lower limb Current Visit: Yes Status: Acute Code(s): L03.116 - CELLULITIS OF LEFT LOWER LIMB SNOMED Code(s): 09464187529344579 (2) Leukocytosis Current Visit: Yes Status: Acute Code(s): D72.829 - ELEVATED WHITE BLOOD CELL COUNT, UNSPECIFIED SNOMED Code(s): 821741656 (3) Pressure ulcer of left heel, stage 3 Current Visit: Yes Status: Acute Code(s): L89.623 - PRESSURE ULCER OF LEFT HEEL, STAGE 3 SNOMED Code(s): 27463895540977 (4) Penicillin allergy Current Visit: No Status: Acute Code(s): Z88.0 - ALLERGY STATUS TO PENICILLIN SNOMED Code(s): 15032841 Plan: 1patient with a left heel infected pressure ulcer with the last culture positive for Proteus Christina and staph epi and the patient has been advised Rocephin 2 g daily sent home as he has no care home days left hand the patient was unable to take care of himself at home subsequent has been brought back to the hospital not running any fever white count has been normal left heel did have slough tissue minimal surrounding redness 2we will start the patient on Santyl for left heel wound followed by moist dressing change daily keep the area of the pressure 3Rocephin 2 g daily to continue we will add oral Flagyl We will follow on clinical condition and cultures to further adjust medication if needed Thank you for this consultation we will follow the patient along with you Dictation was produced using [employer] software. please excuse any grammatical, word or spelling errors. Time with Patient: Greater than 30
[2023-08-14] MEDS: metroNIDAZOLE 500 MG TAB PO SCH (10:58)
[2023-08-14 11:06] LABS: Platelet Count 185 k/uL (150-450)
[2023-08-14 11:33] LABS: Glucose,Whole Blood 181 mg/dL (70-110)
[2023-08-14] MEDS: hydrALAZINE HCL 20 MG/ML 1 ML VIAL IVP PRN (11:50)
[2023-08-14] MEDS: amLODIPine 10 MG TAB PO SCH (11:50)
--- NOTE | 2023-08-14 13:34 | P.PN ---
Subjective HISTORY OF PRESENT ILLNESS: This is a 67-year-old male patient of Dr. Chávez with past medical history of coronary artery disease status post PCI as well as CABG, cardiomyopathy, hypertension, hyperlipidemia, persistent atrial fibrillation, diabetes mellitus type 2, chronic kidney disease stage III. We have been asked to evaluate the patient for acute on chronic CHF. Patient had a recent hospitalization earlier in July for which she was treated for diabetic foot ulcer/cellulitis of the left foot discharged home on IV antibiotics. Patient was seen by cardiology during that hospitalization for atrial fibrillation and underwent ALEXIA and cardioversion on 08/08. Patient presented to the emergency center due to inability to care for himself at home. He has been urinating and defecating on himself. EMS found him to be hypoxic. Patient denies having any shortness of breath, no chest pain, no dizziness, no palpitations. No PND. He has occasional cough. No fever. No blood in his urine or stools. He denies any syncopal episodes. He denies history of being told he had CHF. He has lower extremity edema that comes and goes. He states he has not walked in 1 to 2 weeks. He denies any increased shortness of breath with activity nor at rest. Patient is seen today in the emergency center waiting for bed on the cardiac stepdown unit. Blood pressure 163/65, heart rate 56, pulse ox 98% on room air. Patient is afebrile. Patient has been started on IV Lasix 40 mg daily. EKG: Sinus rhythm with first-degree block, IVCD. Chest x-ray: Cardiomegaly and mild pulmonary vascular congestion. Laboratory studies: WBC 6.8, hemoglobin 10. BUN 26 creatinine 1.87, potassium 3 Home cardiac medications: Amiodarone 200 mg daily, Eliquis 5 mg twice daily, aspirin 81 mg daily, atorvastatin 10 mg daily, Coreg 25 mg twice daily, hydralazine 50 mg 3 times daily, losartan 50 mg twice daily, Demadex 10 mg daily, also on levothyroxine 100 mcg daily. 08/09/2023: ALEXIA and cardioversion. Mild mitral regurgitation. No evidence of PFO. Left atrial appendage is free of clot. EF 25 to 30%. Lexiscan Cardiolite stress test performed in the office on 03/01/2020 revealed inconclusive EKG part of the stress test due to baseline EKG abnormalities. Abnormal nuclear scan showing evidence of prior anterior wall TX with mild LV dysfunction without any ischemia. 08/14/2023 Patient examined this morning at bedside. Patient currently denies chest pain or pressure. He denies shortness of breath. Telemetry reveals sinus mechanism. Patient's blood pressure is elevated this morning with a systolic greater than 180. PHYSICAL EXAM: VITAL SIGNS: Reviewed. GENERAL: Well-developed in no acute distress. NECK: Supple. No JVD or thyromegaly LUNGS: Respirations even and unlabored. Lungs essentially clear to auscultation bilaterally. HEART: Regular rate and rhythm. S1 and S2 heard. EXTREMITIES: Normal range of motion. No clubbing or cyanosis. Peripheral pulses intact. No lower extremity edema ASSESSMENT: Generalized debility and inability to care for himself Moderate protein calorie malnutrition leading to edema and poor healing Left foot diabetic ulcer, MRSA Acute on chronic heart failure with reduced EF, 25 to 30% Coronary artery disease with previous PCI and CABG Hemic cardiomyopathy Hypertension Hyperlipidemia Persistent atrial fibrillation, status post recent ALEXIA and cardioversion, maintaining sinus mechanism Diabetes mellitus type 2 Chronic kidney disease stage III PLAN: Increase patient's hydralazine to QID dosing Add Imdur 30 mg daily Patient has been started on amlodipine per primary medicine. Consider discontinuing this in the future if patient's blood pressures are better controlled due to cardiomyopathy Discontinue PRN IVP hydralazine as this makes it difficult to determine appropriate oral antihypertensive regimen Continue to monitor blood pressure Further recommendations pending patient course Nurse practitioner note has been reviewed by physician. Signing provider agrees with the documented findings, assessment, and plan of care documented by TELEPHONE MECHANIC as a scribe. Objective - Vital Signs Vital signs: Vital Signs Temp 98.1 F 08/14/23 08:45 Pulse 66 08/14/23 08:45 Resp 18 08/14/23 08:45 BP 186/104 08/14/23 08:45 Pulse Ox 92 L 08/14/23 08:45 FiO2 Intake & Output 08/13/23 08/14/23 08/14/23 18:59 06:59 18:59 Intake Total 118 Output Total 1100 100 500 Balance -982 -100 -500 Weight 68.5 kg Intake: Oral 118 Output: Urine 1100 100 500 Other: Voiding Method External Catheter External Catheter External Catheter # Bowel Movements 1 1 - Labs CBC & Chem 7: 08/14/23 08:10 08/14/23 08:10 Labs: Abnormal Lab Results - Last 24 Hours (Table) 08/13/23 08/14/23 08/14/23 Range/Units 12:12 06:13 08:10 WBC 11.7 H (3.8-10.6) k/uL RBC 3.97 L (4.30-5.90) m/uL Hgb 11.0 L (13.0-17.5) gm/dL Hct 36.7 L (39.0-53.0) % MCHC 29.8 L (31.0-37.0) g/dL Carbon Dioxide (22-30) mmol/L BUN (9-20) mg/dL Creatinine (0.66-1.25) mg/dL Glucose (74-99) mg/dL POC Glucose (mg/dL) 68 L 168 H (70-110) mg/dL 08/14/23 Range/Units 08:10 WBC (3.8-10.6) k/uL RBC (4.30-5.90) m/uL Hgb (13.0-17.5) gm/dL Hct (39.0-53.0) % MCHC (31.0-37.0) g/dL Carbon Dioxide 31 H (22-30) mmol/L BUN 24 H (9-20) mg/dL Creatinine 1.76 H (0.66-1.25) mg/dL Glucose 145 H (74-99) mg/dL POC Glucose (mg/dL) (70-110) mg/dL
[2023-08-14] MEDS: ISOSORBIDE MONONITRATE ER 30 MG TAB.ER.24H PO SCH (13:43)
[2023-08-14] MEDS: hydrALAZINE HCL 50 MG TAB PO SCH (13:44)
--- NOTE | 2023-08-14 15:32 | P.PN ---
Subjective Progress Note Date: 08/14/23 67-year-old male patient, history of coronary artery disease status post PCI as well as CABG, cardiomyopathy, hypertension, hyperlipidemia, persistent atrial fibrillation, diabetes mellitus type 2, chronic kidney disease stage III, recent hospitalization earlier in July for which she was treated for diabetic foot ulcer/cellulitis of the left foot discharged home on IV antibiotics, seen by cardiology during that hospitalization for atrial fibrillation and underwent ALEXIA and cardioversion on 08/08. Patient presented to the emergency center due to inability to care for himself at home. He has been urinating and defecating on himself. EMS found him to be hypoxic. Patient denies having any shortness of breath, no chest pain, no dizziness, no palpitations. No PND. He has occasional cough. No fever. No blood in his urine or stools. He denies any syncopal episodes. He denies history of being told he had CHF. He has lower extremity edema that comes and goes. He states he has not walked in 1 to 2 weeks. He denies any increased shortness of breath with activity nor at rest. Patient is seen today in the emergency center waiting for bed on the cardiac stepdown unit. Blood pressure 163/65, heart rate 56, pulse ox 98% on room air. Patient is afebrile. Patient has been started on IV Lasix 40 mg daily. EKG: Sinus rhythm with first-degree block, IVCD. Chest x-ray: Cardiomegaly and mild pulmonary vascular congestion. 08/09/2023: ALEXIA and cardioversion. Mild mitral regurgitation. No evidence of PFO. Left atrial appendage is free of clot. EF 25 to 30%. Lexiscan Cardiolite stress test performed in the office on 03/01/2020 revealed inconclusive EKG part of the stress test due to baseline EKG abnormalities. Abnormal nuclear scan showing evidence of prior anterior wall MD with mild LV dysfunction without any ischemia. 08/14/2023 Patient is seen and evaluated in room at bedside; discussed with nursing staff; specific complaints reported Vital signs reviewed and reveal temperature of 98.1, pulse 66, respiration 18 and blood pressure 186/104, O2 saturation of 92% Blood work reveals a WBC of 11.7, hemoglobin of 11, platelet count of 185, sodium 146, potassium 3.6, BUNs/creatinine of 20/1.76 and blood glucose 145 --Patient's blood pressure remains markedly elevated; hydralazine has been increased; cardiology recommending to add Imdur; amlodipine was added this morning; plan is to discontinue amlodipine once blood pressure is better controlled due to cardiomyopathy Objective - Vital Signs Vital signs: Vital Signs Temp 97.8 F 08/14/23 04:00 Pulse 55 L 08/14/23 04:00 Resp 18 08/14/23 04:00 BP 138/74 08/14/23 04:00 Pulse Ox 92 L 08/14/23 04:00 FiO2 Intake & Output 08/13/23 08/14/23 08/14/23 18:59 06:59 18:59 Intake Total 118 Output Total 1100 100 500 Balance -982 -100 -500 Weight 68.5 kg Intake: Oral 118 Output: Urine 1100 100 500 Other: Voiding Method External Catheter External Catheter # Bowel Movements 1 1 - Exam HEENT: Head is atraumatic, normocephalic. Pupils equal, round. Sclerae is anicteric. NECK: Supple. No JVD. LUNGS: Clear to auscultation. No wheezes or rhonchi. No intercostal retractions. HEART: Regular rate and rhythm. No murmur. ABDOMEN: Soft No tenderness. EXTREMITIES: Palpable pulses bilaterally. Mild edema. Dressing in place to the left foot and ankle. NEUROLOGICAL: Patient is awake, alert. - Labs CBC & Chem 7: 08/14/23 08:10 08/14/23 08:10 Labs: Abnormal Lab Results - Last 24 Hours (Table) 08/13/23 08/14/23 08/14/23 Range/Units 12:12 06:13 08:10 WBC 11.7 H (3.8-10.6) k/uL RBC 3.97 L (4.30-5.90) m/uL Hgb 11.0 L (13.0-17.5) gm/dL Hct 36.7 L (39.0-53.0) % MCHC 29.8 L (31.0-37.0) g/dL Carbon Dioxide (22-30) mmol/L BUN (9-20) mg/dL Creatinine (0.66-1.25) mg/dL Glucose (74-99) mg/dL POC Glucose (mg/dL) 68 L 168 H (70-110) mg/dL 08/14/23 Range/Units 08:10 WBC (3.8-10.6) k/uL RBC (4.30-5.90) m/uL Hgb (13.0-17.5) gm/dL Hct (39.0-53.0) % MCHC (31.0-37.0) g/dL Carbon Dioxide 31 H (22-30) mmol/L BUN 24 H (9-20) mg/dL Creatinine 1.76 H (0.66-1.25) mg/dL Glucose 145 H (74-99) mg/dL POC Glucose (mg/dL) (70-110) mg/dL Assessment and Plan Assessment: Acute on chronic CHF with systolic dysfunction ejection fraction 30 to 35% Uncontrolled hypertension Elevated troponin level likely type II MD CKD stage IV with baseline creatinine 1.8-2 Persistent atrial fibrillation status post ALEXIA and cardioversion on 08/09/2023 Left heel unstageable diabetic foot ulcer with surrounding cellulitis. Currently on antibiotic course with ceftriaxone 2 g every 12 at home from recent discharge on 08/11/2023. Generalized weakness and fatigue and unable to ambulate get out of bed. Coronary artery with history of CABG and stent placement Diabetes type 2 insulin-dependent Hypothyroidism Hyperlipidemia Prior history of smoking DVT prophylaxis patient is already on Eliquis Diabetic peripheral neuropathy Iron deficiency anemia Plan: Patient will be continued on telemonitoring. Continue with IV Lasix 40 mg daily. Patient is on torsemide 10 mg daily at home. Started back on aspirin, Coreg 25 mg twice daily, losartan 50 mg twice daily, hydralazine 50 mg 3 times daily and anticoagulation with Eliquis. Continue to monitor renal function. Cardiology will be consulted. Continue with antibiotics ceftriaxone 2 g every 24 hours as per recent ID recommendations for left heel diabetic ulcer/infection. Continue with pain management and follow-up closely. Prognosis is guarded. PT OT will be consulted.
[2023-08-14] MEDS ORDERED: hydrALAZINE HCL 50 MG TAB PO SCH (16:00)
[2023-08-14 16:35] LABS: Glucose,Whole Blood 130 mg/dL (70-110)
--- NOTE | 2023-08-14 16:35 | P.PN ---
Subjective Progress Note Date: 08/14/23 Principal diagnosis: Reason for follow-up is infected left heel pressure ulcer Patient is a 67-year-old male with a past medical history negative for hypertension hyperlipidemia diabetes mellitus history of left heel infected pressure ulcer status post debridement with a recent culture positive for Proteus Christina and staph epi patient did get a PICC line and was discharged home on IV Rocephin, subsequently brought back to the hospital by EMS and the patient was admitted to take care of himself and get his medication. On today's evaluation that is 08/14/2023,the patient remains to be afebrile, patient is on room air not requiring supplemental oxygen and denies any shortness of breath no chest pain or cough.Patient denies having any nausea or vomiting, no abdominal pain and no diarrhea has been reported, denies any worsening pain to the left heel wound. Patient white count is 11.7, creatinine is 1.76 Objective - Vital Signs Vital signs: Vital Signs Temp 98.1 F 08/14/23 08:45 Pulse 74 08/14/23 15:56 Resp 18 08/14/23 15:56 BP 149/68 08/14/23 15:56 Pulse Ox 93 L 08/14/23 15:56 FiO2 Intake & Output 08/13/23 08/14/23 08/14/23 18:59 06:59 18:59 Intake Total 118 Output Total 0615 680 2085 Balance -982 -100 -1250 Weight 68.5 kg 68.5 kg Intake: Oral 118 Output: Urine 4128 671 0770 Other: Voiding Method External Catheter External Catheter External Catheter # Bowel Movements 1 1 - Exam GENERAL DESCRIPTION: An elderly male lying in bed in no distress RESPIRATORY SYSTEM: Unlabored breathing , decreased breath sounds at bases HEART: S1 S2 regular rate and rhythm , ABDOMEN: Soft , no tenderness EXTREMITIES: Left it is currently dressed - Labs CBC & Chem 7: 08/14/23 08:10 08/14/23 08:10 Labs: Abnormal Lab Results - Last 24 Hours (Table) 08/14/23 08/14/23 08/14/23 Range/Units 06:13 08:10 08:10 WBC 11.7 H (3.8-10.6) k/uL RBC 3.97 L (4.30-5.90) m/uL Hgb 11.0 L (13.0-17.5) gm/dL Hct 36.7 L (39.0-53.0) % MCHC 29.8 L (31.0-37.0) g/dL Neutrophils # 10.1 H (1.3-7.7) k/uL Lymphocytes # 0.5 L (1.0-4.8) k/uL Carbon Dioxide 31 H (22-30) mmol/L BUN 24 H (9-20) mg/dL Creatinine 1.76 H (0.66-1.25) mg/dL Glucose 145 H (74-99) mg/dL POC Glucose (mg/dL) 168 H (70-110) mg/dL 08/14/23 Range/Units 11:31 WBC (3.8-10.6) k/uL RBC (4.30-5.90) m/uL Hgb (13.0-17.5) gm/dL Hct (39.0-53.0) % MCHC (31.0-37.0) g/dL Neutrophils # (1.3-7.7) k/uL Lymphocytes # (1.0-4.8) k/uL Carbon Dioxide (22-30) mmol/L BUN (9-20) mg/dL Creatinine (0.66-1.25) mg/dL Glucose (74-99) mg/dL POC Glucose (mg/dL) 181 H (70-110) mg/dL Assessment and Plan (1) Pressure ulcer of left heel, stage 3 Current Visit: Yes Status: Acute Code(s): L89.623 - PRESSURE ULCER OF LEFT HEEL, STAGE 3 SNOMED Code(s): 63968729234709 (2) Cellulitis of left foot Current Visit: No Status: Acute Code(s): L03.116 - CELLULITIS OF LEFT LOWER LIMB SNOMED Code(s): 07970220091461641 (3) Leukocytosis Current Visit: Yes Status: Acute Code(s): D72.829 - ELEVATED WHITE BLOOD CELL COUNT, UNSPECIFIED SNOMED Code(s): 640847404 Plan: 1patient with a left heel infected pressure ulcer with the last culture positive for Proteus Christina and staph epi and the patient has been advised Rocephin 2 g daily sent home as he has no [place] [facility] days left hand the patient was unable to take care of himself at home subsequent has been brought back to the hospital not running any fever white count has been normal left heel did have slough tissue minimal surrounding redness 2patient declined local wound care with Santyl for left heel wound followed by moist dressing change daily keep the area of the pressure 3patient to continue with Rocephin 2 g daily along with oral Flagyl Dictation was produced using [employer] dictation software. please excuse any grammatical, word or spelling errors. Time with Patient: Less than 30
[2023-08-14 20:11] LABS: Glucose,Whole Blood 144 mg/dL (70-110)
[2023-08-15 06:02] LABS: Glucose,Whole Blood 78 mg/dL (70-110)
[2023-08-15 06:55] LABS: Basophils # (A) 0.1 k/uL (0-0.2); Basophils % (A) 1 %; Eosinophils # (A) 0.2 k/uL (0-0.7); Eosinophils % (A) 3 %; HCT 32.7 % (39.0-53.0); Hypochromasia Marked; Lymphocytes # (A) 0.6 k/uL (1.0-4.8); Lymphocytes % (A) 7 %; MCH 28.5 pg (25.0-35.0); MCHC 30.5 g/dL (31.0-37.0); MCV 93.4 fL (80.0-100.0); Mean Platelet Volume 7.6; Monocytes # (A) 0.6 k/uL (0-1.0); Monocytes % (A) 6 %; Neutrophils # (A) 7.6 k/uL (1.3-7.7); Neutrophils % (A) 83 %; Platelet Count 253 k/uL (150-450); RDW 15.5 % (11.5-15.5); WBC 9.2 k/uL (3.8-10.6)
[2023-08-15 07:10] LABS: African American GFR (CKD) 45 (>60 ml/min/1.73 sqM); Anion Gap 5 mmol/L; Blood Urea Nitrogen 23 mg/dL (9-20); Calcium 8.4 mg/dL (8.4-10.2); Carbon Dioxide 30 mmol/L (22-30); Chloride 106 mmol/L (98-107); Glucose 63 mg/dL (74-99); Non-African American GFR(CKD) 39 (>60 ml/min/1.73 sqM); Sodium 141 mmol/L (137-145)
[2023-08-15] MEDS: POTASSIUM CHLORIDE ER 20 MEQ TAB.ER PO SCH (09:28)
[2023-08-15] MEDS: POTASSIUM CHLORIDE 20 MEQ in WATER FOR INJECTION 1 100ML.BAG IVPB SCH (10:13)
--- NOTE | 2023-08-15 10:25 | P.PN ---
Subjective HISTORY OF PRESENT ILLNESS: This is a 67-year-old male patient of Dr. Chávez with past medical history of coronary artery disease status post PCI as well as CABG, cardiomyopathy, hypertension, hyperlipidemia, persistent atrial fibrillation, diabetes mellitus type 2, chronic kidney disease stage III. We have been asked to evaluate the patient for acute on chronic CHF. Patient had a recent hospitalization earlier in July for which she was treated for diabetic foot ulcer/cellulitis of the left foot discharged home on IV antibiotics. Patient was seen by cardiology during that hospitalization for atrial fibrillation and underwent ALEXIA and cardioversion on 08/08. Patient presented to the emergency center due to inability to care for himself at home. He has been urinating and defecating on himself. EMS found him to be hypoxic. Patient denies having any shortness of breath, no chest pain, no dizziness, no palpitations. No PND. He has occasional cough. No fever. No blood in his urine or stools. He denies any syncopal episodes. He denies history of being told he had CHF. He has lower extremity edema that comes and goes. He states he has not walked in 1 to 2 weeks. He denies any increased shortness of breath with activity nor at rest. Patient is seen today in the emergency center waiting for bed on the cardiac stepdown unit. Blood pressure 163/65, heart rate 56, pulse ox 98% on room air. Patient is afebrile. Patient has been started on IV Lasix 40 mg daily. EKG: Sinus rhythm with first-degree block, IVCD. Chest x-ray: Cardiomegaly and mild pulmonary vascular congestion. Laboratory studies: WBC 6.8, hemoglobin 10. BUN 26 creatinine 1.87, potassium 3 Home cardiac medications: Amiodarone 200 mg daily, Eliquis 5 mg twice daily, aspirin 81 mg daily, atorvastatin 10 mg daily, Coreg 25 mg twice daily, hydralazine 50 mg 3 times daily, losartan 50 mg twice daily, Demadex 10 mg daily, also on levothyroxine 100 mcg daily. 08/09/2023: ALEXIA and cardioversion. Mild mitral regurgitation. No evidence of PFO. Left atrial appendage is free of clot. EF 25 to 30%. Lexiscan Cardiolite stress test performed in the office on 03/01/2020 revealed inconclusive EKG part of the stress test due to baseline EKG abnormalities. Abnormal nuclear scan showing evidence of prior anterior wall AR with mild LV dysfunction without any ischemia. 08/14/2023 Patient examined this morning at bedside. Patient currently denies chest pain or pressure. He denies shortness of breath. Telemetry reveals sinus mechanism. Patient's blood pressure is elevated this morning with a systolic greater than 180. 08/15/2023 Patient examined this morning at the bedside. Patient currently denies chest pain or pressure. He denies shortness of breath. Blood pressure significantly improved today with a systolic in the 130s 140s. Potassium today 3.0. Blood pressure this morning 178/71. However patient did just receive his morning medications. PHYSICAL EXAM: VITAL SIGNS: Reviewed. GENERAL: Well-developed in no acute distress. NECK: Supple. No JVD or thyromegaly LUNGS: Respirations even and unlabored. Lungs essentially clear to auscultation bilaterally. HEART: Regular rate and rhythm. S1 and S2 heard. EXTREMITIES: Normal range of motion. No clubbing or cyanosis. Peripheral pulses intact. No lower extremity edema ASSESSMENT: Generalized debility and inability to care for himself Moderate protein calorie malnutrition leading to edema and poor healing Left foot diabetic ulcer, MRSA Acute on chronic heart failure with reduced EF, 25 to 30% Coronary artery disease with previous PCI and CABG Hemic cardiomyopathy Hypertension Hyperlipidemia Persistent atrial fibrillation, status post recent ALEXIA and cardioversion, maintaining sinus mechanism Diabetes mellitus type 2 Chronic kidney disease stage III PLAN: Continue current cardiac medications Continue to monitor blood pressure Further recommendations pending patient course Nurse practitioner note has been reviewed by physician. Signing provider agrees with the documented findings, assessment, and plan of care documented by CARDIOPULMONARY PHYSICAL THERAPIST as a scribe. Objective - Vital Signs Vital signs: Vital Signs Temp 98.1 F 08/15/23 08:30 Pulse 62 08/15/23 08:30 Resp 18 08/15/23 08:30 BP 178/71 08/15/23 08:30 Pulse Ox 90 L 08/15/23 08:30 FiO2 Intake & Output 08/14/23 08/15/23 08/15/23 18:59 06:59 18:59 Intake Total 120 Output Total 1750 400 Balance -1750 -400 120 Weight 68.5 kg Intake: Oral 120 Output: Urine 1750 400 Other: Voiding Method External Catheter External Catheter External Catheter # Bowel Movements 1 - Labs CBC & Chem 7: 08/15/23:27 08/15/23 06:27 Labs: Abnormal Lab Results - Last 24 Hours (Table) 08/14/23 08/14/23 08/14/23 Range/Units 08:10 11:31 16:33 RBC (4.30-5.90) m/uL Hgb (13.0-17.5) gm/dL Hct (39.0-53.0) % MCHC (31.0-37.0) g/dL Neutrophils # 10.1 H (1.3-7.7) k/uL Lymphocytes # 0.5 L (1.0-4.8) k/uL Potassium (3.5-5.1) mmol/L BUN (9-20) mg/dL Creatinine (0.66-1.25) mg/dL Glucose (74-99) mg/dL POC Glucose (mg/dL) 181 H 130 H (70-110) mg/dL 08/14/23 08/15/23 08/15/23 Range/Units 20:10 06:27 06:27 RBC 3.50 L (4.30-5.90) m/uL Hgb 10.0 L (13.0-17.5) gm/dL Hct 32.7 L (39.0-53.0) % MCHC 30.5 L (31.0-37.0) g/dL Neutrophils # (1.3-7.7) k/uL Lymphocytes # 0.6 L (1.0-4.8) k/uL Potassium 3.0 L (3.5-5.1) mmol/L BUN 23 H (9-20) mg/dL Creatinine 1.76 H (0.66-1.25) mg/dL Glucose 63 L (74-99) mg/dL POC Glucose (mg/dL) 144 H (70-110) mg/dL
[2023-08-15 11:36] LABS: Glucose,Whole Blood 61 mg/dL (70-110)
[2023-08-15 12:21] LABS: Glucose,Whole Blood 72 mg/dL (70-110)
[2023-08-15] MEDS: ACETAMINOPHEN TAB 325 MG TAB PO PRN (14:39)
[2023-08-15 16:26] LABS: Glucose,Whole Blood 68 mg/dL (70-110)
[2023-08-15 19:45] LABS: Glucose,Whole Blood 65 mg/dL (70-110)
[2023-08-15] MEDS: ATORVASTATIN 40 MG TAB PO SCH (20:04)
[2023-08-15] MEDS: DEXTROSE 50% SYRINGE 50 ML IVP PRN (20:05)
--- NOTE | 2023-08-15 22:42 | P.PN ---
Subjective Progress Note Date: 08/15/23 Principal diagnosis: Reason for follow-up is infected left heel pressure ulcer Patient is a 67-year-old male with a past medical history negative for hypertension hyperlipidemia diabetes mellitus history of left heel infected pressure ulcer status post debridement with a recent culture positive for Proteus Christina and staph epi patient did get a PICC line and was discharged home on IV Rocephin, subsequently brought back to the hospital by EMS and the patient was admitted to take care of himself and get his medication. On today's evaluation that is 08/15/2023, the patient continues to be afebrile, the patient is on room air and breathing comfortably, the Pt denies having any chest pain or cough, the patient denies having any abdominal pain no vomiting or any diarrhea has been reported by the nursing staff denies any worsening pain to the left heel wound. Patient white count is 9.2, creatinine is 1.76 Objective - Vital Signs Vital signs: Vital Signs Temp 98.1 F 08/15/23 08:30 Pulse 62 08/15/23 12:00 Resp 18 08/15/23 12:00 BP 162/78 08/15/23 12:00 Pulse Ox 98 08/15/23 12:00 FiO2 Intake & Output 08/14/23 08/15/23 08/15/23 18:59 06:59 18:59 Intake Total 120 Output Total 1750 400 Balance -1750 -400 120 Weight 68.5 kg Intake: Oral 120 Output: Urine 1750 400 Other: Voiding Method External Catheter External Catheter External Catheter # Bowel Movements 1 - Exam GENERAL DESCRIPTION: An elderly male lying in bed in no distress RESPIRATORY SYSTEM: Unlabored breathing , decreased breath sounds at bases HEART: S1 S2 regular rate and rhythm , ABDOMEN: Soft , no tenderness EXTREMITIES: Left it is currently dressed - Labs CBC & Chem 7: 08/15/23 06:27 08/15/23 06:27 Labs: Abnormal Lab Results - Last 24 Hours (Table) 08/14/23 08/14/23 08/15/23 Range/Units 16:33 20:10 06:27 RBC 3.50 L (4.30-5.90) m/uL Hgb 10.0 L (13.0-17.5) gm/dL Hct 32.7 L (39.0-53.0) % MCHC 30.5 L (31.0-37.0) g/dL Lymphocytes # 0.6 L (1.0-4.8) k/uL Potassium (3.5-5.1) mmol/L BUN (9-20) mg/dL Creatinine (0.66-1.25) mg/dL Glucose (74-99) mg/dL POC Glucose (mg/dL) 130 H 144 H (70-110) mg/dL 08/15/23 08/15/23 Range/Units 06:27 11:35 RBC (4.30-5.90) m/uL Hgb (13.0-17.5) gm/dL Hct (39.0-53.0) % MCHC (31.0-37.0) g/dL Lymphocytes # (1.0-4.8) k/uL Potassium 3.0 L (3.5-5.1) mmol/L BUN 23 H (9-20) mg/dL Creatinine 1.76 H (0.66-1.25) mg/dL Glucose 63 L (74-99) mg/dL POC Glucose (mg/dL) 61 L (70-110) mg/dL Assessment and Plan (1) Pressure ulcer of left heel, stage 3 Current Visit: Yes Status: Acute Code(s): L89.623 - PRESSURE ULCER OF LEFT HEEL, STAGE 3 SNOMED Code(s): 12501952921204 (2) Cellulitis of left foot Current Visit: No Status: Acute Code(s): L03.116 - CELLULITIS OF LEFT LOWER LIMB SNOMED Code(s): 46818078385280750 (3) Leukocytosis Current Visit: Yes Status: Acute Code(s): D72.829 - ELEVATED WHITE BLOOD CELL COUNT, UNSPECIFIED SNOMED Code(s): 123827557 Plan: 1patient with a left heel infected pressure ulcer with the last culture positive for Proteus Christina and staph epi and the patient has been advised Rocephin 2 g daily sent home as he has no [place] [facility] days left hand the patient was unable to take care of himself at home subsequent has been brought back to the hospital not running any fever white count has been normal left heel did have slough tissue minimal surrounding redness 2patient to continue local wound care with Santyl for left heel wound followed by moist dressing change daily keep the area of the pressure, still does have significant amount of slough tissue will get vascular surgery evaluation for possible surgical debridement 3patient to continue with Rocephin 2 g daily along with oral Flagyl Dictation was produced using [employer] dictation software. please excuse any grammatical, word or spelling errors. Time with Patient: Less than 30
[2023-08-16 06:06] LABS: Glucose,Whole Blood 80 mg/dL (70-110)
[2023-08-16 10:21] LABS: African American GFR (CKD) 42 (>60 ml/min/1.73 sqM); Anion Gap 4 mmol/L; Blood Urea Nitrogen 22 mg/dL (9-20); Calcium 8.1 mg/dL (8.4-10.2); Carbon Dioxide 30 mmol/L (22-30); Chloride 104 mmol/L (98-107); Glucose 93 mg/dL (74-99); Non-African American GFR(CKD) 37 (>60 ml/min/1.73 sqM); Potassium 3.4 mmol/L (3.5-5.1); Sodium 138 mmol/L (137-145)
[2023-08-16 11:32] LABS: Glucose,Whole Blood 111 mg/dL (70-110)
--- NOTE | 2023-08-16 11:41 | P.PN ---
Subjective HISTORY OF PRESENT ILLNESS: This is a 67-year-old male patient of Dr. Chávez with past medical history of coronary artery disease status post PCI as well as CABG, cardiomyopathy, hypertension, hyperlipidemia, persistent atrial fibrillation, diabetes mellitus type 2, chronic kidney disease stage III. We have been asked to evaluate the patient for acute on chronic CHF. Patient had a recent hospitalization earlier in July for which she was treated for diabetic foot ulcer/cellulitis of the left foot discharged home on IV antibiotics. Patient was seen by cardiology during that hospitalization for atrial fibrillation and underwent ALEXIA and cardioversion on 08/08. Patient presented to the emergency center due to inability to care for himself at home. He has been urinating and defecating on himself. EMS found him to be hypoxic. Patient denies having any shortness of breath, no chest pain, no dizziness, no palpitations. No PND. He has occasional cough. No fever. No blood in his urine or stools. He denies any syncopal episodes. He denies history of being told he had CHF. He has lower extremity edema that comes and goes. He states he has not walked in 1 to 2 weeks. He denies any increased shortness of breath with activity nor at rest. Patient is seen today in the emergency center waiting for bed on the cardiac stepdown unit. Blood pressure 163/65, heart rate 56, pulse ox 98% on room air. Patient is afebrile. Patient has been started on IV Lasix 40 mg daily. EKG: Sinus rhythm with first-degree block, IVCD. Chest x-ray: Cardiomegaly and mild pulmonary vascular congestion. Laboratory studies: WBC 6.8, hemoglobin 10. BUN 26 creatinine 1.87, potassium 3 Home cardiac medications: Amiodarone 200 mg daily, Eliquis 5 mg twice daily, aspirin 81 mg daily, atorvastatin 10 mg daily, Coreg 25 mg twice daily, hydralazine 50 mg 3 times daily, losartan 50 mg twice daily, Demadex 10 mg daily, also on levothyroxine 100 mcg daily. 08/09/2023: ALEXIA and cardioversion. Mild mitral regurgitation. No evidence of PFO. Left atrial appendage is free of clot. EF 25 to 30%. Lexiscan Cardiolite stress test performed in the office on 03/01/2020 revealed inconclusive EKG part of the stress test due to baseline EKG abnormalities. Abnormal nuclear scan showing evidence of prior anterior wall [place] with mild LV dysfunction without any ischemia. 08/14/2023 Patient examined this morning at bedside. Patient currently denies chest pain or pressure. He denies shortness of breath. Telemetry reveals sinus mechanism. Patient's blood pressure is elevated this morning with a systolic greater than 180. 08/15/2023 Patient examined this morning at the bedside. Patient currently denies chest pain or pressure. He denies shortness of breath. Blood pressure significantly improved today with a systolic in the 130s 140s. Potassium today 3.0. Blood pressure this morning 178/71. However patient did just receive his morning medications. 08/16/2023 Patient examined this morning at bedside. Patient currently denies chest pain or pressure. He denies shortness of breath. Vital signs are stable. Speech therapy is working with the patient this morning and he is undergoing swallow eval. PHYSICAL EXAM: VITAL SIGNS: Reviewed. GENERAL: Well-developed in no acute distress. NECK: Supple. No JVD or thyromegaly LUNGS: Respirations even and unlabored. Lungs essentially clear to auscultation bilaterally. HEART: Regular rate and rhythm. S1 and S2 heard. EXTREMITIES: Normal range of motion. No clubbing or cyanosis. Peripheral p ulses intact. No lower extremity edema ASSESSMENT: Generalized debility and inability to care for himself Moderate protein calorie malnutrition leading to edema and poor healing Left foot diabetic ulcer, MRSA Acute on chronic heart failure with reduced EF, 25 to 30% Coronary artery disease with previous PCI and CABG Hemic cardiomyopathy Hypertension Hyperlipidemia Persistent atrial fibrillation, status post recent ALEXIA and cardioversion, maintaining sinus mechanism Diabetes mellitus type 2 Chronic kidney disease stage III PLAN: Continue current cardiac medications Continue to monitor blood pressure Patient is currently stable from a cardiac perspective with no further inpatient recommendations We will sign off. Please reconsult if needed. Nurse practitioner note has been reviewed by physician. Signing provider agrees with the documented findings, assessment, and plan of care documented by HEAD OF ACQUISITIONS as a scribe. Objective - Vital Signs Vital signs: Vital Signs Temp 98.6 F 08/16/23 11:31 Pulse 60 08/16/23 11:31 Resp 20 08/16/23 11:31 BP 116/53 08/16/23 11:31 Pulse Ox 98 08/16/23 11:31 FiO2 Intake & Output 08/15/23 08/16/23 08/16/23 18:59 06:59 18:59 Intake Total 780 0 Output Total 300 Balance 480 0 Intake: Oral 780 0 Output: Urine 300 Other: Voiding Method External Catheter External Catheter External Catheter # Bowel Movements 5 - Labs CBC & Chem 7: 08/15/23 06:27 08/16/23 09:24 Labs: Abnormal Lab Results - Last 24 Hours (Table) 08/15/23 08/15/23 08/16/23 Range/Units 16:24 19:42 09:24 Potassium 3.4 L (3.5-5.1) mmol/L BUN 22 H (9-20) mg/dL Creatinine 1.86 H (0.66-1.25) mg/dL POC Glucose (mg/dL) 68 L 65 L (70-110) mg/dL Calcium 8.1 L (8.4-10.2) mg/dL 08/16/23 Range/Units 11:30 Potassium (3.5-5.1) mmol/L BUN (9-20) mg/dL Creatinine (0.66-1.25) mg/dL POC Glucose (mg/dL) 111 H (70-110) mg/dL Calcium (8.4-10.2) mg/dL
--- NOTE | 2023-08-16 12:05 | P.PN ---
Subjective 67-year-old male patient, history of coronary artery disease status post PCI as well as CABG, cardiomyopathy, hypertension, hyperlipidemia, persistent atrial fibrillation, diabetes mellitus type 2, chronic kidney disease stage III, recent hospitalization earlier in July for which she was treated for diabetic foot ulcer/cellulitis of the left foot discharged home on IV antibiotics, seen by cardiology during that hospitalization for atrial fibrillation and underwent ALEXIA and cardioversion on 08/08. Patient presented to the emergency center due to inability to care for himself at home. He has been urinating and defecating on himself. EMS found him to be hypoxic. Patient denies having any shortness of breath, no chest pain, no dizziness, no palpitations. No PND. He has occasional cough. No fever. No blood in his urine or stools. He denies any syncopal episodes. He denies history of being told he had CHF. He has lower extremity edema that comes and goes. He states he has not walked in 1 to 2 weeks. He denies any increased shortness of breath with activity nor at rest. Patient is seen today in the emergency center waiting for bed on the cardiac stepdown unit. Blood pressure 163/65, heart rate 56, pulse ox 98% on room air. Patient is afebrile. Patient has been started on IV Lasix 40 mg daily. EKG: Sinus rhythm with first-degree block, IVCD. Chest x-ray: Cardiomegaly and mild pulmonary vascular congestion. 08/09/2023: ALEXIA and cardioversion. Mild mitral regurgitation. No evidence of PFO. Left atrial appendage is free of clot. EF 25 to 30%. Lexiscan Cardiolite stress test performed in the office on 03/01/2020 revealed inconclusive EKG part of the stress test due to baseline EKG abnormalities. Abnormal nuclear scan showing evidence of prior anterior wall CT with mild LV dysfunction without any ischemia. 08/14/2023 Patient is seen and evaluated in room at bedside; discussed with nursing staff; specific complaints reported Vital signs reviewed and reveal temperature of 98.1, pulse 66, respiration 18 and blood pressure 186/104, O2 saturation of 92% Blood work reveals a WBC of 11.7, hemoglobin of 11, platelet count of 185, sodium 146, potassium 3.6, BUNs/creatinine of 20/1.76 and blood glucose 145 --Patient's blood pressure remains markedly elevated; hydralazine has been increased; cardiology recommending to add Imdur; amlodipine was added this morning; plan is to discontinue amlodipine once blood pressure is better controlled due to cardiomyopathy 08/16/23 This is a pleasant 67 years old male with past medical history of multiple medical problems Was admitted from emergency room for left foot cellulitis and then discharged home however he had difficulty getting into his home so he came to emergency room back. Patient evaluated by ID team and hand heel seat fitter and found to have acute urinary tract infection with generalized weakness. Patient states that he has been having burning in his urine. No urine culture was sent. Other chronic medical problems including CKD stage III, chronic systolic CHF with ejection fraction 35% and A-fib and recent left heel infected pressure ulcer. Culture was growing Christina Staph epidermidis and Proteus Vascular surgery has been consulted for wound evaluation and possible need for debridement Also physical therapy recommended subacute rehab however patient states that he has finished his date Currently he is covered with ceftriaxone, fluconazole and Flagyl. Also he is on Eliquis and aspirin 81 mg Objective - Vital Signs Vital signs: Vital Signs Temp 98.6 F 08/16/23 11:31 Pulse 60 08/16/23 11:31 Resp 20 08/16/23 11:31 BP 116/53 08/16/23 11:31 Pulse Ox 98 08/16/23 11:31 FiO2 Intake & Output 08/15/23 08/16/23 08/16/23 18:59 06:59 18:59 Intake Total 780 0 Output Total 300 Balance 480 0 Intake: Oral 780 0 Output: Urine 300 Other: Voiding Method External Catheter External Catheter External Catheter # Bowel Movements 5 - Exam GENERAL: The patient is alert and oriented x3, not in any acute distress. Well developed, well nourished. HEENT: Pupils are round and equally reacting to light. EOMI. No scleral icterus. No conjunctival pallor. Normocephalic, atraumatic. No pharyngeal erythema. No thyromegaly. CARDIOVASCULAR: S1 and S2 present. No murmurs, rubs, or gallops. PULMONARY: Chest is clear to auscultation, no wheezing , no crackles. ABDOMEN: Soft, nontender, nondistended, normoactive bowel sounds. No palpable organomegaly. MUSCULOSKELETAL: No joint swelling or deformity. -EXTREMITIES: No cyanosis, clubbing, or pedal edema. Left heel pressure ulcer with a dressing in place NEUROLOGICAL: Gross neurological examination did not reveal any focal deficits. SKIN: No rashes. no petechiae. - Labs CBC & Chem 7: 08/15/23 06:27 08/16/23 09:24 Labs: Abnormal Lab Results - Last 24 Hours (Table) 08/15/23 08/15/23 08/16/23 Range/Units 16:24 19:42 09:24 Potassium 3.4 L (3.5-5.1) mmol/L BUN 22 H (9-20) mg/dL Creatinine 1.86 H (0.66-1.25) mg/dL POC Glucose (mg/dL) 68 L 65 L (70-110) mg/dL Calcium 8.1 L (8.4-10.2) mg/dL 08/16/23 Range/Units 11:30 Potassium (3.5-5.1) mmol/L BUN (9-20) mg/dL Creatinine (0.66-1.25) mg/dL POC Glucose (mg/dL) 111 H (70-110) mg/dL Calcium (8.4-10.2) mg/dL Assessment and Plan Assessment: Left heel unstageable diabetic foot ulcer with surrounding cellulitis. Currently on antibiotic course with ceftriaxone 2 g every 12 at home from recent discharge on 08/11/2023.surgery team evaluated for possible debridement UTI, acute cute on chronic CHF with systolic dysfunction ejection fraction 30 to 35% Uncontrolled hypertension Elevated troponin level likely type II CT CKD stage IV with baseline creatinine 1.8-2 Persistent atrial fibrillation status post ALEXIA and cardioversion on 08/09/2023 Generalized weakness and fatigue and unable to ambulate get out of bed. Coronary artery with history of CABG and stent placement Diabetes type 2 insulin-dependent Hypothyroidism Hyperlipidemia Prior history of smoking DVT prophylaxis patient is already on Eliquis Diabetic peripheral neuropathy Iron deficiency anemia Plan: Continue with antibiotic as per ID team, currently on ceftriaxone, fluconazole and Flagyl Patient also on Eliquis 5 mg and aspirin Infectious disease consult Vascular surgery disease consult hand heel seat fitter evaluated the patien and signed off the case t Labs and medication were reviewed.. Continue same treatment. Continue with symptomatic treatment. Resume home medication. Monitor labs and vitals. DVT and GI prophylaxis. Further recommendations as per clinical course of the patient DVT prophylaxis: Subcutaneous heparin GI Prophylaxis: Pepcid PT/OT: P subacute rehab, needs 24/7 care Prognosis is guarded
--- NOTE | 2023-08-16 12:22 | CDI ---
Documentation Clarification Form Date: 08/16/2023 12:11:30 PM From: Guerline Humphries RN CCDS Phone: [phone] Admit Date: 08/12/2023 02:53:00 PM Patient Name: James Clark Visit Number: [id number] Discharge Date: ATTENTION: The Clinical Documentation Specialists (CDI) and [facility] Coding Staff appreciate your assistance in clarifying documentation. Please respond to the clarification below the line at the bottom and electronically sign. The CDI & [facility] Coding staff will review the response and follow-up if needed. Please note: Queries are made part of the Legal Health Record. If you have any questions, please contact the author of this message via ITS. Dr. Raleigh Vazquez A Coccyx stage 2 pressure ulcer is documented by Nursing 08/12, Integumentary assessment. Based on this information and the findings below, is there an additional diagnosis that is clinically appropriate for this patient? History/Risk Factors: 67-year-old male presents to the ED from home was discharged yesterday from this facility unable to ambulate has been urinating and defecating on himself. The patient arrived on 2L of oxygen. Medical history: DM, HLD and HTN. 08/11, ED note. Clinical Indicators: Location: Coccyx Wound description: Reddened Treatment: Turn Q2H, Zinc paste, Aborbant underpad checking hourly Is there an additional diagnosis that is clinically appropriate for this patient? [x ] Coccyx Pressure Ulcer Stage 2 [ ] Other condition, please specify [ ] Unable to determine Clinical Definitions: Stage 1 Pressure Ulcer: intact skin, non-blanching redness of local area Stage 2 Pressure Ulcer: Partial thickness, loss of dermis, pink wound bed Stage 3 Pressure Ulcer: Full thickness tissue loss Stage 4 Pressure Ulcer: Full thickness tissue loss with exposed bone, tendon, or muscle. Unstageable pressure ulcer: Full thickness tissue loss in which the base of the ulcer is covered by slough (yellow, jefferson, pollard, green or brown) and/or eschar (jefferson, brown or black) in the wound bed. (Template Last Revised: April 2020) MTDD
--- NOTE | 2023-08-16 12:45 | P.PN ---
Subjective Progress Note Date: 08/15/23 67-year-old male patient, history of coronary artery disease status post PCI as well as CABG, cardiomyopathy, hypertension, hyperlipidemia, persistent atrial fibrillation, diabetes mellitus type 2, chronic kidney disease stage III, recent hospitalization earlier in July for which she was treated for diabetic foot ulcer/cellulitis of the left foot discharged home on IV antibiotics, seen by cardiology during that hospitalization for atrial fibrillation and underwent ALEXIA and cardioversion on 08/08. Patient presented to the emergency center due to inability to care for himself at home. He has been urinating and defecating on himself. EMS found him to be hypoxic. Patient denies having any shortness of breath, no chest pain, no dizziness, no palpitations. No PND. He has occasional cough. No fever. No blood in his urine or stools. He denies any syncopal episodes. He denies history of being told he had CHF. He has lower extremity edema that comes and goes. He states he has not walked in 1 to 2 weeks. He denies any increased shortness of breath with activity nor at rest. Patient is seen today in the emergency center waiting for bed on the cardiac stepdown unit. Blood pressure 163/65, heart rate 56, pulse ox 98% on room air. Patient is afebrile. Patient has been started on IV Lasix 40 mg daily. EKG: Sinus rhythm with first-degree block, IVCD. Chest x-ray: Cardiomegaly and mild pulmonary vascular congestion. 08/09/2023: ALEXIA and cardioversion. Mild mitral regurgitation. No evidence of PFO. Left atrial appendage is free of clot. EF 25 to 30%. Lexiscan Cardiolite stress test performed in the office on 03/01/2020 revealed inconclusive EKG part of the stress test due to baseline EKG abnormalities. Abnormal nuclear scan showing evidence of prior anterior wall [place] with mild LV dysfunction without any ischemia. 08/14/2023 Patient is seen and evaluated in room at bedside; discussed with nursing staff; specific complaints reported Vital signs reviewed and reveal temperature of 98.1, pulse 66, respiration 18 and blood pressure 186/104, O2 saturation of 92% Blood work reveals a WBC of 11.7, hemoglobin of 11, platelet count of 185, sodium 146, potassium 3.6, BUNs/creatinine of 20/1.76 and blood glucose 145 --Patient's blood pressure remains markedly elevated; hydralazine has been increased; cardiology recommending to add Imdur; amlodipine was added this morning; plan is to discontinue amlodipine once blood pressure is better controlled due to cardiomyopathy 08/15/2023 Patient is seen and evaluated in room at bedside; discussed with nursing staff; no specific complaints reported Vital signs reviewed and remained stable; blood work reveals a WBC of 9.2, hemoglobin of 10 and platelet count of 253, sodium 141, potassium 3.0, BUNs/creatinine of 23/1.76 which is essentially unchanged from yesterday patient with a left heel infected pressure ulcer with the last culture positive for Proteus Christina and staph epi and the patient has been advised Rocephin 2 g daily sent home as he has no shelter days left hand the patient was unable to take care of himself at home subsequent has been brought back to the hospital not running any fever white count has been normal left heel did have slough tissue minimal surrounding redness patient to continue local wound care with Santyl for left heel wound followed by moist dressing change daily keep the area of the pressure, still does have significant amount of slough tissue will get vascular surgery evaluation for possible surgical debridement patient to continue with Rocephin 2 g daily along with oral Flagyl Objective - Vital Signs Vital signs: Vital Signs Temp 98.1 F 08/15/23 08:30 Pulse 62 08/15/23 08:30 Resp 18 08/15/23 08:30 BP 178/71 08/15/23 08:30 Pulse Ox 90 L 08/15/23 08:30 FiO2 Intake & Output 08/14/23 08/15/23 08/15/23 18:59 06:59 18:59 Intake Total 120 Output Total 1750 400 Balance -1750 -400 120 Weight 68.5 kg Intake: Oral 120 Output: Urine 1750 400 Other: Voiding Method External Catheter External Catheter External Catheter # Bowel Movements 1 - Exam HEENT: Head is atraumatic, normocephalic. Pupils equal, round. Sclerae is anicteric. NECK: Supple. No JVD. LUNGS: Clear to auscultation. No wheezes or rhonchi. No intercostal retractions. HEART: Regular rate and rhythm. No murmur. ABDOMEN: Soft No tenderness. EXTREMITIES: Palpable pulses bilaterally. Mild edema. Dressing in place to the left foot and ankle. NEUROLOGICAL: Patient is awake, alert. - Labs CBC & Chem 7: 08/15/23 06:27 08/16/23 09:24 Labs: Abnormal Lab Results - Last 24 Hours (Table) 08/14/23 08/14/23 08/14/23 Range/Units 08:10 11:31 16:33 RBC (4.30-5.90) m/uL Hgb (13.0-17.5) gm/dL Hct (39.0-53.0) % MCHC (31.0-37.0) g/dL Neutrophils # 10.1 H (1.3-7.7) k/uL Lymphocytes # 0.5 L (1.0-4.8) k/uL Potassium (3.5-5.1) mmol/L BUN (9-20) mg/dL Creatinine (0.66-1.25) mg/dL Glucose (74-99) mg/dL POC Glucose (mg/dL) 181 H 130 H (70-110) mg/dL 08/14/23 08/15/23 08/15/23 Range/Units 20:10 06:27 06:27 RBC 3.50 L (4.30-5.90) m/uL Hgb 10.0 L (13.0-17.5) gm/dL Hct 32.7 L (39.0-53.0) % MCHC 30.5 L (31.0-37.0) g/dL Neutrophils # (1.3-7.7) k/uL Lymphocytes # 0.6 L (1.0-4.8) k/uL Potassium 3.0 L (3.5-5.1) mmol/L BUN 23 H (9-20) mg/dL Creatinine 1.76 H (0.66-1.25) mg/dL Glucose 63 L (74-99) mg/dL POC Glucose (mg/dL) 144 H (70-110) mg/dL Assessment and Plan Assessment: Acute on chronic CHF with systolic dysfunction ejection fraction 30 to 35% Uncontrolled hypertension Elevated troponin level likely type II [place] CKD stage IV with baseline creatinine 1.8-2 Persistent atrial fibrillation status post ALEXIA and cardioversion on 08/09/2023 Left heel unstageable diabetic foot ulcer with surrounding cellulitis. Currently on antibiotic course with ceftriaxone 2 g every 12 at home from recent discharge on 08/11/2023. Generalized weakness and fatigue and unable to ambulate get out of bed. Coronary artery with history of CABG and stent placement Diabetes type 2 insulin-dependent Hypothyroidism Hyperlipidemia Prior history of smoking DVT prophylaxis patient is already on Eliquis Diabetic peripheral neuropathy Iron deficiency anemia Plan: Patient will be continued on telemonitoring. Continue with IV Lasix 40 mg daily. Patient is on torsemide 10 mg daily at home. Started back on aspirin, Coreg 25 mg twice daily, losartan 50 mg twice daily, hydralazine 50 mg 3 times daily and anticoagulation with Eliquis. Continue to monitor renal function. Cardiology will be consulted. Continue with antibiotics ceftriaxone 2 g every 24 hours as per recent ID recommendations for left heel diabetic ulcer/infection. Continue with pain management and follow-up closely. Prognosis is guarded. PT OT will be consulted.
--- NOTE | 2023-08-16 16:22 | P.GSCN ---
History of Present Illness History of present illness: 67-year-old gentleman this patient came last week with left heel necrotic wound we did the debridement and local wound care patient is under care of infectious disease for IV antibiotic patient has been readmitted with a left heel wound Medical history history of diabetes hypertension Surgical history post CABG On examination patient was seen in his room chest is clear good entry both lungs. Second sound present Abdomen is soft nontender Vascular femorals are 1+ bilateral patient has a wound on the left heel base of the wound is granulating no discharge or redness noted patient responding to the local wound care Santyl cream will be continued on daily basis if patient goes home patient can follow-up with the wound clinic Past Medical History Past Medical History: Diabetes Mellitus, Hyperlipidemia, Hypertension, Thyroid Disorder History of Any Multi-Drug Resistant Organisms: None Reported Year Discovered:: 04/21/23 MDRO Source:: Left Foot Past Surgical History: Coronary Bypass/CABG, Heart Catheterization With Stent Additional Past Surgical History / Comment(s): left great and second toe removal. bilat carpal tunnel. neck fusion 5-6-7. triple bypass Past Anesthesia/Blood Transfusion Reactions: No Reported Reaction Additional Past Anesthesia/Blood Transfusion Reaction / Comm: no blood transfusion Date of Last Stent Placement:: 02/2002 Past Psychological History: No Psychological Hx Reported Smoking Status: Former smoker Past Alcohol Use History: None Reported Additional Past Alcohol Use History / Comment(s): quit smoking at 38 Past Drug Use History: None Reported - Past Family History Father History Unknown: Yes Mother History Unknown: Yes Medications and Allergies Home Medications Medication Instructions Recorded Confirmed Type Ferrous Sulfate [Iron (65 MG 325 mg PO DAILY 03/04/21 08/12/23 History Elemental)] Hydroxychloroquine Sulfate 200 mg PO BID 03/04/21 08/12/23 History [Plaquenil] Levothyroxine Sodium [Synthroid] 100 mcg PO DAILY@0600 03/04/21 08/12/23 History Famotidine [Pepcid] 20 mg PO BID #60 tablet 03/12/21 08/12/23 Rx Meclizine [Antivert] 12.5 mg PO TID PRN 30 Days #90 03/13/21 08/12/23 Rx tablet Balsalazide Disodium [Colazal] 2,250 mg PO BID 03/17/23 08/12/23 History Loratadine [Claritin] 10 mg PO DAILY 03/17/23 08/12/23 History Apixaban [Eliquis] 5 mg PO BID #60 tab 06/11/23 08/12/23 Rx Atorvastatin [Lipitor] 10 mg PO HS 08/01/23 08/12/23 History HYDROcodone/APAP 5-325MG [[place] 1 tab PO Q6H PRN 08/01/23 08/12/23 History 5-325] Insulin Lispro See Protocol SQ TID-W/MEALS 08/01/23 08/12/23 History Melatonin 10 mg PO HS 08/01/23 08/12/23 History Ondansetron [Zofran] 4 mg PO TID PRN 08/01/23 08/12/23 History Acetaminophen Tab [Tylenol] 650 mg PO Q6HR PRN tab 08/11/23 08/12/23 Rx Amiodarone [Cordarone] 200 mg PO DAILY #30 tab 08/11/23 08/12/23 Rx Aspirin 81 mg PO DAILY #30 tab 08/11/23 08/12/23 Rx Insulin Glargine-Yfgn [Semglee 15 unit SQ HS #0 08/11/23 08/12/23 Rx (Yfgn) Pen] Losartan [Cozaar] 50 mg PO BID #60 tab 08/11/23 08/12/23 Rx Torsemide [Demadex] 10 mg PO DAILY 30 Days #15 tab 08/11/23 08/12/23 Rx carvediloL [Coreg*] 25 mg PO BID-W/MEALS 30 Days #120 08/11/23 08/12/23 Rx tab cefTRIAXone [Rocephin] 2 gm IVPB Q24HR each 08/11/23 08/12/23 Rx hydrALAZINE HCL [Apresoline] 50 mg PO TID #90 tab 08/11/23 08/12/23 Rx Gabapentin [Neurontin] 100 mg PO Q8H 08/12/23 08/12/23 History Allergies Allergy/AdvReac Type Severity Reaction Status Date / Time Penicillins Allergy Unknown Verified 08/12/23 14:11 Childhood Surgical - Exam Vital Signs Temp Pulse Resp BP Pulse Ox 98.7 F 71 20 184/85 97 08/12/23 12:08 08/12/23 12:08 08/12/23 12:08 08/12/23 12:08 08/12/23 12:08 Results - Labs 08/15/23 06:27 08/16/23 09:24 Abnormal Lab Results - Last 24 Hours (Table) 08/15/23 08/15/23 08/16/23 Range/Units 16:24 19:42 09:24 Potassium 3.4 L (3.5-5.1) mmol/L BUN 22 H (9-20) mg/dL Creatinine 1.86 H (0.66-1.25) mg/dL POC Glucose (mg/dL) 68 L 65 L (70-110) mg/dL Calcium 8.1 L (8.4-10.2) mg/dL 08/16/23 Range/Units 11:30 Potassium (3.5-5.1) mmol/L BUN (9-20) mg/dL Creatinine (0.66-1.25) mg/dL POC Glucose (mg/dL) 111 H (70-110) mg/dL Calcium (8.4-10.2) mg/dL Diabetes panel 08/16/23 Range/Units 09:24 Sodium 138 (137-145) mmol/L Potassium 3.4 L (3.5-5.1) mmol/L Chloride 104 (98-107) mmol/L Carbon Dioxide 30 (22-30) mmol/L BUN 22 H (9-20) mg/dL Creatinine 1.86 H (0.66-1.25) mg/dL Glucose 93 (74-99) mg/dL Calcium 8.1 L (8.4-10.2) mg/dL Calcium panel 08/16/23 Range/Units 09:24 Calcium 8.1 L (8.4-10.2) mg/dL Pituitary panel 08/16/23 Range/Units 09:24 Sodium 138 (137-145) mmol/L Potassium 3.4 L (3.5-5.1) mmol/L Chloride 104 (98-107) mmol/L Carbon Dioxide 30 (22-30) mmol/L BUN 22 H (9-20) mg/dL Creatinine 1.86 H (0.66-1.25) mg/dL Glucose 93 (74-99) mg/dL Calcium 8.1 L (8.4-10.2) mg/dL Adrenal panel 06/24/24 Range/Units 09:24 Sodium 138 (137-145) mmol/L Potassium 3.4 L (3.5-5.1) mmol/L Chloride 104 (98-107) mmol/L Carbon Dioxide 30 (22-30) mmol/L BUN 22 H (9-20) mg/dL Creatinine 1.86 H (0.66-1.25) mg/dL Glucose 93 (74-99) mg/dL Calcium 8.1 L (8.4-10.2) mg/dL
[2023-08-16 16:33] LABS: Glucose,Whole Blood 118 mg/dL (70-110)
[2023-08-16] MEDS: LIDOCAINE 1% INJ 10MG/ML (20 ML MDV) ONE (16:40)
[2023-08-16 20:20] LABS: Glucose,Whole Blood 203 mg/dL (70-110)
[2023-08-17 06:05] LABS: Glucose,Whole Blood 98 mg/dL (70-110)
[2023-08-17] MEDS: AMIODARONE 100 MG TAB PO SCH (10:35)
[2023-08-17 11:52] LABS: Glucose,Whole Blood 75 mg/dL (70-110)
[2023-08-17 16:19] LABS: Glucose,Whole Blood 59 mg/dL (70-110)
--- NOTE | 2023-08-17 16:21 | P.PN ---
Subjective Progress Note Date: 08/17/23 Principal diagnosis: Reason for follow-up is infected left heel pressure ulcer Patient is a 67-year-old male with a past medical history negative for hypertension hyperlipidemia diabetes mellitus history of left heel infected pressure ulcer status post debridement with a recent culture positive for Proteus Christina and staph epi patient did get a PICC line and was discharged home on IV Rocephin, subsequently brought back to the hospital by EMS and the patient was admitted to take care of himself and get his medication. On today's evaluation that is 08/16/2023, Patient is afebrile patient is currently on 1 L nasal cannula oxygen and denies having any shortness of breath, the patient denies any chest pain or cough, the patient denies any nausea vomiting did not have any abdominal pain and no diarrhea, denies any worsening pain to the left heel wound. No new lab has been obtained today Objective - Vital Signs Vital signs: Vital Signs Temp 97.5 F L 08/17/23 11:01 Pulse 47 L 08/17/23 11:01 Resp 20 08/17/23 11:01 BP 141/60 08/17/23 11:01 Pulse Ox 97 08/17/23 11:01 FiO2 Intake & Output 08/16/23 08/17/23 08/17/23 18:59 06:59 18:59 Intake Total 562 236 Output Total 900 200 Balance 562 -900 36 Weight 68.5 kg Intake: Intake, IV Titration 0 Amount cefTRIAXone 2 gm In 0 Sodium Chloride 0.9% 50 ml @ 100 mls/hr IVPB Q24H [facility] Rx#:[id number] Oral 562 236 Output: Urine 900 200 Other: Voiding Method External Catheter External Catheter External Catheter # Bowel Movements 2 1 0 - Exam GENERAL DESCRIPTION: An elderly male lying in bed in no distress RESPIRATORY SYSTEM: Unlabored breathing , decreased breath sounds at bases HEART: S1 S2 regular rate and rhythm , ABDOMEN: Soft , no tenderness EXTREMITIES: Left heel wound is currently dressed - Labs CBC & Chem 7: 08/15/23 06:27 08/16/23 09:24 Labs: Abnormal Lab Results - Last 24 Hours (Table) 08/16/23 08/16/23 Range/Units 16:32 20:19 POC Glucose (mg/dL) 118 H 203 H (70-110) mg/dL Assessment and Plan (1) Pressure ulcer of left heel, stage 3 Current Visit: Yes Status: Acute Code(s): L89.623 - PRESSURE ULCER OF LEFT HEEL, STAGE 3 SNOMED Code(s): 59201699656187 (2) Cellulitis of left foot Current Visit: No Status: Acute Code(s): L03.116 - CELLULITIS OF LEFT LOWER LIMB SNOMED Code(s): 20465728474341876 (3) Leukocytosis Current Visit: Yes Status: Acute Code(s): D72.829 - ELEVATED WHITE BLOOD CELL COUNT, UNSPECIFIED SNOMED Code(s): 848775475 Plan: 1patient with a left heel infected pressure ulcer with the last culture positive for Proteus Christina and staph epi and the patient has been advised Rocephin 2 g daily sent home as he has no intermediate days left hand the patie nt was unable to take care of himself at home subsequent has been brought back to the hospital not running any fever white count has been normal left heel did have slough tissue minimal surrounding redness 2patient to continue local wound care with Santyl for left heel wound followed by moist dressing change daily keep the area of the pressure, vascular surgery evaluated the patient and recommend to continue with local treatment with the Santyl and recommending any further debridement 3patient to continue with Rocephin 2 g daily along with oral Flagyl, registered nurse hh case manager has not been able to place the patient and the patient was not able to do IV antibiotics at home we may switch him to oral Ceftin and Flagyl on discharge and continue current wound care per surgery Dictation was produced using [employer] dictation software. please excuse any grammatical, word or spelling errors. Time with Patient: Less than 30
--- NOTE | 2023-08-17 16:21 | P.PN ---
Subjective Progress Note Date: 08/16/23 Principal diagnosis: Reason for follow-up is infected left heel pressure ulcer Patient is a 67-year-old male with a past medical history negative for hypertension hyperlipidemia diabetes mellitus history of left heel infected pressure ulcer status post debridement with a recent culture positive for Proteus Christina and staph epi patient did get a PICC line and was discharged home on IV Rocephin, subsequently brought back to the hospital by EMS and the patient was admitted to take care of himself and get his medication. On today's evaluation that is 08/16/2023, Patient is afebrile patient is currently on 2 L nasal cannula oxygen and denies having any shortness of breath, the patient denies any chest pain or cough, the patient denies any nausea vomiting did not have any abdominal pain and no diarrhea, no worsening pain to the left 81. Patient did have a creatinine 1.86 no CBC was done today Objective - Vital Signs Vital signs: Vital Signs Temp 98.6 F 08/16/23 11:31 Pulse 60 08/16/23 11:31 Resp 20 08/16/23 11:31 BP 116/53 08/16/23 11:31 Pulse Ox 98 08/16/23 11:31 FiO2 Intake & Output 08/15/23 08/16/23 08/16/23 18:59 06:59 18:59 Intake Total 780 0 Output Total 300 Balance 480 0 Intake: Oral 780 0 Output: Urine 300 Other: Voiding Method External Catheter External Catheter External Catheter # Bowel Movements 5 - Exam GENERAL DESCRIPTION: An elderly male lying in bed in no distress RESPIRATORY SYSTEM: Unlabored breathing , decreased breath sounds at bases HEART: S1 S2 regular rate and rhythm , ABDOMEN: Soft , no tenderness EXTREMITIES: Left it is currently dressed - Labs CBC & Chem 7: 08/15/23 06:27 08/16/23 09:24 Labs: Abnormal Lab Results - Last 24 Hours (Table) 08/15/23 08/15/23 08/16/23 Range/Units 16:24 19:42 09:24 Potassium 3.4 L (3.5-5.1) mmol/L BUN 22 H (9-20) mg/dL Creatinine 1.86 H (0.66-1.25) mg/dL POC Glucose (mg/dL) 68 L 65 L (70-110) mg/dL Calcium 8.1 L (8.4-10.2) mg/dL 08/15/ Range/Units 11:30 Potassium (3.5-5.1) mmol/L BUN (9-20) mg/dL Creatinine (0.66-1.25) mg/dL POC Glucose (mg/dL) 111 H (70-110) mg/dL Calcium (8.4-10.2) mg/dL Assessment and Plan (1) Pressure ulcer of left heel, stage 3 Current Visit: Yes Status: Acute Code(s): L89.623 - PRESSURE ULCER OF LEFT HEEL, STAGE 3 SNOMED Code(s): 53494345282400 (2) Cellulitis of left foot Current Visit: No Status: Acute Code(s): L03.116 - CELLULITIS OF LEFT LOWER LIMB SNOMED Code(s): 26209841016376592 (3) Leukocytosis Current Visit: Yes Status: Acute Code(s): D72.829 - ELEVATED WHITE BLOOD CELL COUNT, UNSPECIFIED SNOMED Code(s): 204820965 Plan: 1patient with a left heel infected pressure ulcer with the last culture positive for Proteus Christina and staph epi and the patient has been advised Rocephin 2 g daily sent home as he has no halfway days left hand the patient was unable to take care of himself at home subsequent has been brought back to the hospital not running any fever white count has been normal left heel did have slough tissue minimal surrounding redness 2patient to continue local wound care with Santyl for left heel wound followed by moist dressing change daily keep the area of the pressure, vascular surgery evaluated the patient and recommend any further treatment 3patient to continue with Rocephin 2 g daily along with oral Flagyl Dictation was produced using [employer] dictation software. please excuse any grammatical, word or spelling errors. Time with Patient: Less than 30
[2023-08-17 16:47] LABS: Glucose,Whole Blood 57 mg/dL (70-110)
[2023-08-17 17:10] LABS: Glucose,Whole Blood 73 mg/dL (70-110)
[2023-08-17 17:36] LABS: Glucose,Whole Blood 120 mg/dL (70-110)
[2023-08-17 20:03] LABS: Glucose,Whole Blood 119 mg/dL (70-110)
[2023-08-18 06:14] LABS: Glucose,Whole Blood 50 mg/dL (70-110)
[2023-08-18 06:30] LABS: Glucose,Whole Blood 73 mg/dL (70-110)
[2023-08-18] MEDS ORDERED: AMIODARONE 100 MG TAB PO SCH (09:00)
--- NOTE | 2023-08-18 10:37 | P.PN ---
Subjective 67-year-old male patient, history of coronary artery disease status post PCI as well as CABG, cardiomyopathy, hypertension, hyperlipidemia, persistent atrial fibrillation, diabetes mellitus type 2, chronic kidney disease stage III, recent hospitalization earlier in July for which she was treated for diabetic foot ulcer/cellulitis of the left foot discharged home on IV antibiotics, seen by cardiology during that hospitalization for atrial fibrillation and underwent ALEXIA and cardioversion on 08/08. Patient presented to the emergency center due to inability to care for himself at home. He has been urinating and defecating on himself. EMS found him to be hypoxic. Patient denies having any shortness of breath, no chest pain, no dizziness, no palpitations. No PND. He has occasional cough. No fever. No blood in his urine or stools. He denies any syncopal episodes. He denies history of being told he had CHF. He has lower extremity edema that comes and goes. He states he has not walked in 1 to 2 weeks. He denies any increased shortness of breath with activity nor at rest. Patient is seen today in the emergency center waiting for bed on the cardiac stepdown unit. Blood pressure 163/65, heart rate 56, pulse ox 98% on room air. Patient is afebrile. Patient has been started on IV Lasix 40 mg daily. EKG: Sinus rhythm with first-degree block, IVCD. Chest x-ray: Cardiomegaly and mild pulmonary vascular congestion. 08/09/2023: ALEXIA and cardioversion. Mild mitral regurgitation. No evidence of PFO. Left atrial appendage is free of clot. EF 25 to 30%. Lexiscan Cardiolite stress test performed in the office on 03/01/2020 revealed inconclusive EKG part of the stress test due to baseline EKG abnormalities. Abnormal nuclear scan showing evidence of prior anterior wall KS with mild LV dysfunction without any ischemia. 08/14/2023 Patient is seen and evaluated in room at bedside; discussed with nursing staff; specific complaints reported Vital signs reviewed and reveal temperature of 98.1, pulse 66, respiration 18 and blood pressure 186/104, O2 saturation of 92% Blood work reveals a WBC of 11.7, hemoglobin of 11, platelet count of 185, sodium 146, potassium 3.6, BUNs/creatinine of 20/1.76 and blood glucose 145 --Patient's blood pressure remains markedly elevated; hydralazine has been increased; cardiology recommending to add Imdur; amlodipine was added this morning; plan is to discontinue amlodipine once blood pressure is better controlled due to cardiomyopathy 08/16/23 This is a pleasant 67 years old male with past medical history of multiple medical problems Was admitted from emergency room for left foot cellulitis and then discharged home however he had difficulty getting into his home so he came to emergency room back. Patient evaluated by ID team and major sales associate and found to have acute urinary tract infection with generalized weakness. Patient states that he has been having burning in his urine. No urine culture was sent. Other chronic medical problems including CKD stage III, chronic systolic CHF with ejection fraction 35% and A-fib and recent left heel infected pressure ulcer. Culture was growing Christina Staph epidermidis and Proteus Vascular surgery has been consulted for wound evaluation and possible need for debridement Also physical therapy recommended subacute rehab however patient states that he has finished his date Currently he is covered with ceftriaxone, fluconazole and Flagyl. Also he is on Eliquis and aspirin 81 mg 08/17/2023 Patient was bradycardic with heart rate about 47 so we held his amiodarone Also his glucose was on the low side so we lowered his Levemir 15 units down to 10 units at bedtime Other than that patient lying in bed generally weeks states the same He remains on broad-spectrum antibiotic I discussed the case with social worker psychiatric, patient is not [place] [facility] as his insurance is not willing to pay. Previous [place] [facility] asking him for about $14,000 for each of them. Also he cannot apply for Medicaid because he has properties that he does not want to give it up. Brother is involved and he reported to Adult Protective Services per staff. Objective - Vital Signs Vital signs: Vital Signs Temp 97.8 F 08/18/23 09:15 Pulse 46 L 08/18/23 09:15 Resp 18 08/18/23 09:15 BP 143/65 08/18/23 09:15 Pulse Ox 98 08/18/23 09:15 FiO2 Intake & Output 08/17/23 08/18/23 08/18/23 18:59 06:59 18:59 Intake Total 456 Output Total 200 450 Balance 256 -450 Weight 68.5 kg 96.5 kg Intake: Oral 456 Output: Urine 200 450 Other: Voiding Method External Catheter External Catheter External Catheter # Bowel Movements 0 - Exam GENERAL: The patient is alert and oriented x3, not in any acute distress. Well developed, well nourished. HEENT: Pupils are round and equally reacting to light. EOMI. No scleral icterus. No conjunctival pallor. Normocephalic, atraumatic. No pharyngeal erythema. No thyromegaly. CARDIOVASCULAR: S1 and S2 present. No murmurs, rubs, or gallops. PULMONARY: Chest is clear to auscultation, no wheezing , no crackles. ABDOMEN: Soft, nontender, nondistended, normoactive bowel sounds. No palpable organomegaly. MUSCULOSKELETAL: No joint swelling or deformity. -EXTREMITIES: No cyanosis, clubbing, or pedal edema. Left heel pressure ulcer with a dressing in place NEUROLOGICAL: Gross neurological examination did not reveal any focal deficits. SKIN: No rashes. no petechiae. - Labs CBC & Chem 7: 08/15/23 06:27 08/16/23 09:24 Labs: Abnormal Lab Results - Last 24 Hours (Table) 08/17/23 08/17/23 08/17/23 Range/Units 16:15 16:46 17:35 POC Glucose (mg/dL) 59 L 57 L 120 H (70-110) mg/dL 08/17/23 08/18/23 Range/Units 20:02 06:06 POC Glucose (mg/dL) 119 H 50 L (70-110) mg/dL Assessment and Plan Assessment: Left heel unstageable diabetic foot ulcer with surrounding cellulitis. Currently on antibiotic course with ceftriaxone 2 g every 12 at home from recent discharge on 08/11/2023.surgery team evaluated for possible debridement UTI, acute cute on chronic CHF with systolic dysfunction ejection fraction 30 to 35% Uncontrolled hypertension Elevated troponin level likely type II KS CKD stage IV with baseline creatinine 1.8-2 Persistent atrial fibrillation status post ALEXIA and cardioversion on 08/09/2023 Generalized weakness and fatigue and unable to ambulate get out of bed. Coronary artery with history of CABG and stent placement Diabetes type 2 insulin-dependent Hypothyroidism Hyperlipidemia Prior history of smoking DVT prophylaxis patient is already on Eliquis Diabetic peripheral neuropathy Iron deficiency anemia Plan: Continue with antibiotic as per ID team, currently on ceftriaxone, fluconazole and Flagyl Patient also on Eliquis 5 mg and aspirin Infectious disease consult Vascular surgery disease consult major sales associate evaluated the patien and signed off the case Lower Levemir to 10 units with close glucose monitoring Continue with Coreg but may hold amiodarone. Discussed with cardiology and defer further management to them Labs and medication were reviewed.. Continue same treatment. Continue with sy mptomatic treatment. Resume home medication. Monitor labs and vitals. DVT and GI prophylaxis. Further recommendations as per clinical course of the patient DVT prophylaxis: Subcutaneous heparin GI Prophylaxis: Pepcid PT/OT: P subacute rehab, needs 24/7 care Prognosis is guarded
[2023-08-18 11:22] LABS: Glucose,Whole Blood 87 mg/dL (70-110)
[2023-08-18 16:29] LABS: Glucose,Whole Blood 74 mg/dL (70-110)
--- NOTE | 2023-08-18 18:02 | P.PN ---
Subjective Progress Note Date: 08/18/23 Principal diagnosis: Reason for follow-up is infected left heel pressure ulcer Patient is a 67-year-old male with a past medical history negative for hypertension hyperlipidemia diabetes mellitus history of left heel infected pressure ulcer status post debridement with a recent culture positive for Proteus Christina and staph epi patient did get a PICC line and was discharged home on IV Rocephin, subsequently brought back to the hospital by EMS and the patient was admitted to take care of himself and get his medication. On today's evaluation that is 08/18/2023, Patient is afebrile this morning and denies any chills, patient mention breathing comfortably and is currently on 2 L current oxygen patient denies any chest pain occasional cough patient denies any abdominal pain no diarrhea no nausea no vomiting, denies any worsening pain to the left heel. Noted to have elevated pain today Objective - Vital Signs Vital signs: Vital Signs Temp 97.8 F 08/18/23 09:15 Pulse 44 L 08/18/23 14:00 Resp 18 08/18/23 14:00 BP 119/64 08/18/23 12:00 Pulse Ox 99 08/18/23 12:00 FiO2 Intake & Output 08/17/23 08/18/23 08/18/23 18:59 06:59 18:59 Intake Total 456 Output Total 200 450 Balance 256 -450 Weight 68.5 kg 96.5 kg Intake: Oral 456 Output: Urine 200 450 Other: Voiding Method External Catheter External Catheter External Catheter # Bowel Movements 0 - Exam GENERAL DESCRIPTION: An elderly male lying in bed in no distress RESPIRATORY SYSTEM: Unlabored breathing , decreased breath sounds at bases HEART: S1 S2 regular rate and rhythm , ABDOMEN: Soft , no tenderness EXTREMITIES: Left heel wound is currently dressed - Labs CBC & Chem 7: 08/15/23 06:27 08/16/23 09:24 Labs: Abnormal Lab Results - Last 24 Hours (Table) 08/17/23 08/17/23 08/17/23 Range/Units 16:15 16:46 17:35 POC Glucose (mg/dL) 59 L 57 L 120 H (70-110) mg/dL 08/17/23 08/18/23 Range/Units 20:02 06:06 POC Glucose (mg/dL) 119 H 50 L (70-110) mg/dL Assessment and Plan (1) Pressure ulcer of left heel, stage 3 Current Visit: Yes Status: Acute Code(s): L89.623 - PRESSURE ULCER OF LEFT HEEL, STAGE 3 SNOMED Code(s): 26030527581637 (2) Cellulitis of left foot Current Visit: No Status: Acute Code(s): L03.116 - CELLULITIS OF LEFT LOWER LIMB SNOMED Code(s): 63730551563015480 (3) Leukocytosis Current Visit: Yes Status: Acute Code(s): D72.829 - ELEVATED WHITE BLOOD CELL COUNT, UNSPECIFIED SNOMED Code(s): 022733273 Plan: 1patient with a left heel infected pressure ulcer with the last culture positive for Proteus Christina and staph epi and the patient has been advised Rocephin 2 g daily sent home as he has no halfway days left hand the patient was unable to take care of himself at home subsequent has been brought back to the hospital not running any fever white count has been normal left heel did have slough tissue minimal surrounding redness 2patient to continue local wound care with Santyl for left heel wound followed by moist dressing change daily keep the area of the pressure, vascular surgery evaluated the patient and recommend to continue with local treatment with the S antyl and recommending any further debridement 3patient to continue with Rocephin 2 g daily along with oral Flagyl, correctional casework specialist has not been able to place the patient and the patient was not able to do IV antibiotics at home 4patient will be switched over to oral Ceftin and Flagyl on discharge and continue current wound care per surgery Dictation was produced using [employer] dictation software. please excuse any grammatical, word or spelling errors. Time with Patient: Less than 30
[2023-08-18 20:22] LABS: Glucose,Whole Blood 84 mg/dL (70-110)
[2023-08-18] MEDS: INSULIN DETEMIR (LEVEMIR) 100 UNIT/ML SYR SQ SCH (20:34)
[2023-08-19 05:47] LABS: Glucose,Whole Blood 85 mg/dL (70-110)
[2023-08-19 11:24] LABS: Glucose,Whole Blood 87 mg/dL (70-110)
--- NOTE | 2023-08-19 11:25 | P.PN ---
Subjective 67-year-old male patient, history of coronary artery disease status post PCI as well as CABG, cardiomyopathy, hypertension, hyperlipidemia, persistent atrial fibrillation, diabetes mellitus type 2, chronic kidney disease stage III, recent hospitalization earlier in July for which she was treated for diabetic foot ulcer/cellulitis of the left foot discharged home on IV antibiotics, seen by cardiology during that hospitalization for atrial fibrillation and underwent ALEXIA and cardioversion on 08/08. Patient presented to the emergency center due to inability to care for himself at home. He has been urinating and defecating on himself. EMS found him to be hypoxic. Patient denies having any shortness of breath, no chest pain, no dizziness, no palpitations. No PND. He has occasional cough. No fever. No blood in his urine or stools. He denies any syncopal episodes. He denies history of being told he had CHF. He has lower extremity edema that comes and goes. He states he has not walked in 1 to 2 weeks. He denies any increased shortness of breath with activity nor at rest. Patient is seen today in the emergency center waiting for bed on the cardiac stepdown unit. Blood pressure 163/65, heart rate 56, pulse ox 98% on room air. Patient is afebrile. Patient has been started on IV Lasix 40 mg daily. EKG: Sinus rhythm with first-degree block, IVCD. Chest x-ray: Cardiomegaly and mild pulmonary vascular congestion. 08/09/2023: ALEXIA and cardioversion. Mild mitral regurgitation. No evidence of PFO. Left atrial appendage is free of clot. EF 25 to 30%. Lexiscan Cardiolite stress test performed in the office on 03/01/2020 revealed inconclusive EKG part of the stress test due to baseline EKG abnormalities. Abnormal nuclear scan showing evidence of prior anterior wall NM with mild LV dysfunction without any ischemia. 08/14/2023 Patient is seen and evaluated in room at bedside; discussed with nursing staff; specific complaints reported Vital signs reviewed and reveal temperature of 98.1, pulse 66, respiration 18 and blood pressure 186/104, O2 saturation of 92% Blood work reveals a WBC of 11.7, hemoglobin of 11, platelet count of 185, sodium 146, potassium 3.6, BUNs/creatinine of 20/1.76 and blood glucose 145 --Patient's blood pressure remains markedly elevated; hydralazine has been increased; cardiology recommending to add Imdur; amlodipine was added this morning; plan is to discontinue amlodipine once blood pressure is better controlled due to cardiomyopathy 08/16/23 This is a pleasant 67 years old male with past medical history of multiple medical problems Was admitted from emergency room for left foot cellulitis and then discharged home however he had difficulty getting into his home so he came to emergency room back. Patient evaluated by ID team and choir director and found to have acute urinary tract infection with generalized weakness. Patient states that he has been having burning in his urine. No urine culture was sent. Other chronic medical problems including CKD stage III, chronic systolic CHF with ejection fraction 35% and A-fib and recent left heel infected pressure ulcer. Culture was growing Christina Staph epidermidis and Proteus Vascular surgery has been consulted for wound evaluation and possible need for debridement Also physical therapy recommended subacute rehab however patient states that he has finished his date Currently he is covered with ceftriaxone, fluconazole and Flagyl. Also he is on Eliquis and aspirin 81 mg 08/17/2023 Patient was bradycardic with heart rate about 47 so we held his amiodarone Also his glucose was on the low side so we lowered his Levemir 15 units down to 10 units at bedtime Other than that patient lying in bed generally weeks states the same He remains on broad-spectrum antibiotic I discussed the case with web content & social media manager, patient is not going to be accepted by custodial as his insurance is not willing to pay. Previous custodial asking him for about $14,000 for each of them. Also he cannot apply for Medicaid because he has properties that he does not want to give it up. Brother is involved and he reported to Adult Protective Services per staff. 08/19/2027 Patient awake alert, mentation at baseline No abdominal pain no other new complaint, he still getting antibiotic for his infection. Left heel with dressing Patient is not eating hospital food stating he does not like the hospital food. Is associated with some nausea. Patient was not eating much and his sugar was on the low side. Patient already passed swallow evaluation and was placed on dysphagia diet but again he is not liking the hospital food. He reports also some nausea so we will add some Zofran or alternative. Also reports some 3 loose bowel movement yesterday but none today, we will check for C. difficile although the suspicion is low. Discussed with child welfare caseworker and the patient himself, there is no custodial will accept him because of his co-pay, insurance coverage. Patient also wants to go home. He would have some difficulty taking care of himself but he has no other options. As an alternative his brother he is going to check on him and adult protective services also involved, patient aware of both of these and he is agreeable. He told staff he was managed to sell his house so he can go to rehab and get the best care for him. Objective - Vital Signs Vital signs: Vital Signs Temp 97.5 F L 08/19/23 08:57 Pulse 60 08/19/23 08:57 Resp 18 08/19/23 08:57 BP 157/78 08/19/23 08:57 Pulse Ox 99 08/19/23 08:57 FiO2 Intake & Output 08/18/23 08/19/23 08/19/23 18:59 06:59 18:59 Intake Total 236 0 Output Total 400 600 Balance -164 -600 0 Weight 94.5 kg Intake: Oral 236 0 Output: Urine 400 600 Other: Voiding Method External Catheter External Catheter External Catheter # Voids 1 # Bowel Movements 1 0 - Exam GENERAL: The patient is alert and oriented x3, not in any acute distress. Well developed, well nourished. HEENT: Pupils are round and equally reacting to light. EOMI. No scleral icterus. No conjunctival pallor. Normocephalic, atraumatic. No pharyngeal erythema. No thyromegaly. CARDIOVASCULAR: S1 and S2 present. No murmurs, rubs, or gallops. PULMONARY: Chest is clear to auscultation, no wheezing , no crackles. ABDOMEN: Soft, nontender, nondistended, normoactive bowel sounds. No palpable organomegaly. MUSCULOSKELETAL: No joint swelling or deformity. -EXTREMITIES: No cyanosis, clubbing, or pedal edema. Left heel pressure ulcer with a dressing in place NEUROLOGICAL: Gross neurological examination did not reveal any focal deficits. SKIN: No rashes. no petechiae. - Labs CBC & Chem 7: 08/15/23 06:27 08/16/23 09:24 Assessment and Plan Assessment: Left heel unstageable diabetic foot ulcer with surrounding cellulitis. Currently on antibiotic course with ceftriaxone 2 g every 12 at home from recent discharge on 08/11/2023.surgery team evaluated for possible debridement UTI, acute cute on chronic CHF with systolic dysfunction ejection fraction 30 to 35% Uncontrolled hypertension Elevated troponin level likely type II NM CKD stage IV with baseline creatinine 1.8-2 Persistent atrial fibrillation status post ALEXIA and cardioversion on 08/09/2023 Generalized weakness and fatigue and unable to ambulate get out of bed. Coronary artery with history of CABG and stent placement Diabetes type 2 insulin-dependent Hypothyroidism Hyperlipidemia Prior history of smoking DVT prophylaxis patient is already on Eliquis Diabetic peripheral neuropathy Iron deficiency anemia Plan: Continue with antibiotic as per ID team, currently on ceftriaxone, fluconazole and Flagyl Patient also on Eliquis 5 mg and aspirin Infectious disease consult Vascular surgery disease consult choir director evaluated the patien and signed off the case Lower Levemir to 10 units with close glucose monitoring Continue with Coreg but may hold amiodarone. Discussed with cardiology and defer further management to them Labs and medication were reviewed.. Continue same treatment. Continue with symptomatic treatment. Resume home medication. Monitor labs and vitals. DVT and GI prophylaxis. Further recommendations as per clinical course of the patient DVT prophylaxis: Subcutaneous heparin GI Prophylaxis: Pepcid PT/OT: P subacute rehab, needs 24/7 care Prognosis is guarded
[2023-08-19 16:16] LABS: Glucose,Whole Blood 164 mg/dL (70-110)
--- NOTE | 2023-08-19 17:00 | P.PN ---
Subjective Progress Note Date: 08/19/23 Principal diagnosis: Reason for follow-up is infected left heel pressure ulcer Patient is a 67-year-old male with a past medical history negative for hypertension hyperlipidemia diabetes mellitus history of left heel infected pressure ulcer status post debridement with a recent culture positive for Proteus Christian and staph epi patient did get a PICC line and was discharged home on IV Rocephin, subsequently brought back to the hospital by EMS and the patient was admitted to take care of himself and get his medication. On today's evaluation that is 08/19/2023,the patient denies any fever or any chills, patient is breathing comfortably on 2 L nasal oxygen, the patient denies chest pain shortness of breath and no significant cough, patient denies abdominal pain, no nausea vomiting or diarrhea. Denies pain to the left heel wound. No new labs has been repeated today Objective - Vital Signs Vital signs: Vital Signs Temp 97.5 F L 08/19/23 08:57 Pulse 61 08/19/23 13:03 Resp 16 08/19/23 13:03 BP 134/77 08/19/23 13:03 Pulse Ox 97 08/19/23 13:03 FiO2 Intake & Output 08/18/23 08/19/23 08/19/23 18:59 06:59 18:59 Intake Total 236 0 Output Total 400 600 Balance -164 -600 0 Weight 94.5 kg Intake: Oral 236 0 Output: Urine 400 600 Other: Voiding Method External Catheter External Catheter External Catheter # Voids 1 # Bowel Movements 1 0 1 - Exam GENERAL DESCRIPTION: An elderly male lying in bed in no distress RESPIRATORY SYSTEM: Unlabored breathing , decreased breath sounds at bases HEART: S1 S2 regular rate and rhythm , ABDOMEN: Soft , no tenderness EXTREMITIES: Left heel wound is currently dressed - Labs CBC & Chem 7: 08/15/23 06:27 08/16/23 09:24 Assessment and Plan (1) Pressure ulcer of left heel, stage 3 Current Visit: Yes Status: Acute Code(s): L89.623 - PRESSURE ULCER OF LEFT HEEL, STAGE 3 SNOMED Code(s): 64405098080555 (2) Cellulitis of left foot Current Visit: No Status: Acute Code(s): L03.116 - CELLULITIS OF LEFT LOWER LIMB SNOMED Code(s): 95036520012066318 (3) Leukocytosis Current Visit: Yes Status: Acute Code(s): D72.829 - ELEVATED WHITE BLOOD CELL COUNT, UNSPECIFIED SNOMED Code(s): 045926138 Plan: 1patient with a left heel infected pressure ulcer with the last culture positive for Proteus Christina and staph epi and the patient has been advised Rocephin 2 g daily sent home as he has no [facility] days left hand the patient was unable to take care of himself at home subsequent has been brought back to the hospital not running any fever white count has been normal left heel did have slough tissue minimal surrounding redness 2patient to continue local wound care with Santyl for left heel wound followed by moist dressing change daily keep the area of the pressure, vascular surgery evaluated the patient and recommend to continue with local treatment with the Santyl and recommending any further debridement 3patient is currently being with Rocephin 2 g daily along with oral Flagyl, with a plan to finish therapy with oral Ceftin and Flagyl on discharge and continue current wound care per surgery Dictation was produced using [employer] dictation software. please excuse any grammatical, word or spelling errors. Time with Patient: Less than 30
[2023-08-19 20:30] LABS: Glucose,Whole Blood 138 mg/dL (70-110)
[2023-08-20 06:14] LABS: Glucose,Whole Blood 93 mg/dL (70-110)
[2023-08-20] MEDS: hydrALAZINE HCL 25 MG TAB PO SCH (11:55)
[2023-08-20 11:58] LABS: Glucose,Whole Blood 96 mg/dL (70-110)
--- NOTE | 2023-08-20 16:45 | P.PN ---
Subjective Progress Note Date: 08/20/23 Principal diagnosis: Reason for follow-up is infected left heel pressure ulcer Patient is a 67-year-old male with a past medical history negative for hypertension hyperlipidemia diabetes mellitus history of left heel infected pressure ulcer status post debridement with a recent culture positive for Proteus Christina and staph epi patient did get a PICC line and was discharged home on IV Rocephin, subsequently brought back to the hospital by EMS and the patient was admitted to take care of himself and get his medication. On today's evaluation that is 08/20/2023,the patient remains to be afebrile, patient is on room air not requiring supplemental oxygen and denies any shortness of breath no chest pain or cough.Patient denies having any nausea or vomiting, no abdominal pain and no diarrhea has been reported and denies any worsening pain to the left heel wound. Patient did not have a lab draw today Objective - Vital Signs Vital signs: Vital Signs Temp 97.5 F L 08/20/23 07:47 Pulse 55 L 08/20/23 07:47 Resp 17 08/20/23 09:32 BP 150/56 08/20/23 07:47 Pulse Ox 97 08/20/23 07:47 FiO2 Intake & Output 08/19/23 08/20/23 08/20/23 18:59 06:59 18:59 Intake Total 0 40 236 Output Total 200 Balance -200 40 236 Weight 94.5 kg Intake: Oral 0 40 236 Output: Urine 200 Other: Voiding Method External Catheter External Catheter External Catheter # Bowel Movements 1 - Exam GENERAL DESCRIPTION: An elderly male lying in bed in no distress RESPIRATORY SYSTEM: Unlabored breathing , decreased breath sounds at bases HEART: S1 S2 regular rate and rhythm , ABDOMEN: Soft , no tenderness EXTREMITIES: Left heel wound is currently dressed - Labs CBC & Chem 7: 08/15/23 06:27 08/16/23 09:24 Labs: Abnormal Lab Results - Last 24 Hours (Table) 08/19/23 08/19/23 Range/Units 16:15 20:24 POC Glucose (mg/dL) 164 H 138 H (70-110) mg/dL Assessment and Plan (1) Pressure ulcer of left heel, stage 3 Current Visit: Yes Status: Acute Code(s): L89.623 - PRESSURE ULCER OF LEFT HEEL, STAGE 3 SNOMED Code(s): 99018088636559 (2) Cellulitis of left foot Current Visit: No Status: Acute Code(s): L03.116 - CELLULITIS OF LEFT LOWER LIMB SNOMED Code(s): 59284575542038913 (3) Leukocytosis Current Visit: Yes Status: Acute Code(s): D72.829 - ELEVATED WHITE BLOOD CE LL COUNT, UNSPECIFIED SNOMED Code(s): 206260614 Plan: 1patient with a left heel infected pressure ulcer with the last culture positive for Proteus Christina and staph epi and the patient has been advised Rocephin 2 g daily sent home as he has no long-term days left hand the patient was unable to take care of himself at home subsequent has been brought back to the hospital not running any fever white count has been normal left heel did have slough tissue minimal surrounding redness 2patient to continue local wound care with Santyl for left heel wound followed by moist dressing change daily keep the area of the pressure, vascular surgery evaluated the patient and recommend to continue with local treatment with the Santyl and recommending any further debridement 3patient to continue Rocephin 2 g daily along with oral Flagyl while inpatient and monitor clinical course closely Dictation was produced using [employer] dictation software. please excuse any grammatical, word or spelling errors. Time with Patient: Less than 30
[2023-08-20 17:18] LABS: Glucose,Whole Blood 141 mg/dL (70-110)
--- NOTE | 2023-08-20 18:36 | P.PN ---
Subjective 67-year-old male patient, history of coronary artery disease status post PCI as well as CABG, cardiomyopathy, hypertension, hyperlipidemia, persistent atrial fibrillation, diabetes mellitus type 2, chronic kidney disease stage III, recent hospitalization earlier in July for which she was treated for diabetic foot ulcer/cellulitis of the left foot discharged home on IV antibiotics, seen by cardiology during that hospitalization for atrial fibrillation and underwent ALEXIA and cardioversion on 08/08. Patient presented to the emergency center due to inability to care for himself at home. He has been urinating and defecating on himself. EMS found him to be hypoxic. Patient denies having any shortness of breath, no chest pain, no dizziness, no palpitations. No PND. He has occasional cough. No fever. No blood in his urine or stools. He denies any syncopal episodes. He denies history of being told he had CHF. He has lower extremity edema that comes and goes. He states he has not walked in 1 to 2 weeks. He denies any increased shortness of breath with activity nor at rest. Patient is seen today in the emergency center waiting for bed on the cardiac stepdown unit. Blood pressure 163/65, heart rate 56, pulse ox 98% on room air. Patient is afebrile. Patient has been started on IV Lasix 40 mg daily. EKG: Sinus rhythm with first-degree block, IVCD. Chest x-ray: Cardiomegaly and mild pulmonary vascular congestion. 08/09/2023: ALEXIA and cardioversion. Mild mitral regurgitation. No evidence of PFO. Left atrial appendage is free of clot. EF 25 to 30%. Lexiscan Cardiolite stress test performed in the office on 03/01/2020 revealed inconclusive EKG part of the stress test due to baseline EKG abnormalities. Abnormal nuclear scan showing evidence of prior anterior wall RI with mild LV dysfunction without any ischemia. 08/14/2023 Patient is seen and evaluated in room at bedside; discussed with nursing staff; specific complaints reported Vital signs reviewed and reveal temperature of 98.1, pulse 66, respiration 18 and blood pressure 186/104, O2 saturation of 92% Blood work reveals a WBC of 11.7, hemoglobin of 11, platelet count of 185, sodium 146, potassium 3.6, BUNs/creatinine of 20/1.76 and blood glucose 145 --Patient's blood pressure remains markedly elevated; hydralazine has been increased; cardiology recommending to add Imdur; amlodipine was added this morning; plan is to discontinue amlodipine once blood pressure is better controlled due to cardiomyopathy 08/16/23 This is a pleasant 67 years old male with past medical history of multiple medical problems Was admitted from emergency room for left foot cellulitis and then discharged home however he had difficulty getting into his home so he came to emergency room back. Patient evaluated by ID team and enterprise architect and found to have acute urinary tract infection with generalized weakness. Patient states that he has been having burning in his urine. No urine culture was sent. Other chronic medical problems including CKD stage III, chronic systolic CHF with ejection fraction 35% and A-fib and recent left heel infected pressure ulcer. Culture was growing Christina Staph epidermidis and Proteus Vascular surgery has been consulted for wound evaluation and possible need for debridement Also physical therapy recommended subacute rehab however patient states that he has finished his date Currently he is covered with ceftriaxone, fluconazole and Flagyl. Also he is on Eliquis and aspirin 81 mg 08/17/2023 Patient was bradycardic with heart rate about 47 so we held his amiodarone Also his glucose was on the low side so we lowered his Levemir 15 units down to 10 units at bedtime Other than that patient lying in bed generally weeks states the same He remains on broad-spectrum antibiotic I discussed the case with adoption social worker, patient is not going to be accepted by long term as his insurance is not willing to pay. Previous long term asking him for about $14,000 for each of them. Also he cannot apply for Medicaid because he has properties that he does not want to give it up. Brother is involved and he reported to Adult Protective Services per staff. 08/19/2023 Patient awake alert, mentation at baseline No abdominal pain no other new complaint, he still getting antibiotic for his infection. Left heel with dressing Patient is not eating hospital food stating he does not like the hospital food. Is associated with some nausea. Patient was not eating much and his sugar was on the low side. Patient already passed swallow evaluation and was placed on dysphagia diet but again he is not liking the hospital food. He reports also some nausea so we will add some Zofran or alternative. Also reports some 3 loose bowel movement yesterday but none today, we will check for C. difficile although the suspicion is low. Discussed with director case and the patient himself, there is no long term will accept him because of his co-pay, insurance coverage. Patient also wants to go home. He would have some difficulty taking care of himself but he has no other options. As an alternative his brother he is going to check on him and adult protective services also involved, patient aware of both of these and he is agreeable. He told staff he was managed to sell his house so he can go to rehab and get the best care for him. 08/20/2023 His diarrhea stopped today He is eating his lunch currently with no difficulty. He is eating chicken tenders C. difficile was checked was negative I discussed the case with director case, there is a facility might take him on Wednesday therefore continue monitoring. Objective - Vital Signs Vital signs: Vital Signs Temp 98.3 F 08/20/23 14:00 Pulse 69 08/20/23 14:00 Resp 19 08/20/23 14:00 BP 149/88 08/20/23 14:00 Pulse Ox 97 08/20/23 14:00 FiO2 Intake & Output 08/19/23 08/20/23 08/20/23 18:59 06:59 18:59 Intake Total 0 40 236 Output Total 200 Balance -200 40 236 Weight 94.5 kg Intake: Oral 0 40 236 Output: Urine 200 Other: Voiding Method External Catheter External Catheter External Catheter # Bowel Movements 1 - Exam GENERAL: The patient is alert and oriented x3, not in any acute distress. Well developed, well nourished. HEENT: Pupils are round and equally reacting to light. EOMI. No scleral icterus. No conjunctival pallor. Normocephalic, atraumatic. No pharyngeal erythema. No thyromegaly. CARDIOVASCULAR: S1 and S2 present. No murmurs, rubs, or gallops. PULMONARY: Chest is clear to auscultation, no wheezing , no crackles. ABDOMEN: Soft, nontender, nondistended, normoactive bowel sounds. No palpable organomegaly. MUSCULOSKELETAL: No joint swelling or deformity. -EXTREMITIES: No cyanosis, clubbing, or pedal edema. Left heel pressure ulcer with a dressing in place NEUROLOGICAL: Gross neurological examination did not reveal any focal deficits. SKIN: No rashes. no petechiae. - Labs CBC & Chem 7: 08/15/23 06:27 08/16/23 09:24 Labs: Abnormal Lab Results - Last 24 Hours (Table) 08/19/23 08/19/23 Range/Units 16:15 20:24 POC Glucose (mg/dL) 164 H 138 H (70-110) mg/dL Assessment and Plan Assessment: Left heel unstageable diabetic foot ulcer with surrounding cellulitis. Currently on antibiotic course with ceftriaxone 2 g every 12 at home from recent discharge on 08/11/2023.surgery team evaluated for possible debridement UTI, acute cute on chronic CHF with systolic dysfunction ejection fraction 30 to 35% Uncontrolled hypertension Elevated troponin level likely type II RI CKD stage IV with baseline creatinine 1.8-2 Persistent atrial fibrillation status post ALEXIA and cardioversion on 08/09/2023 Generalized weakness and fatigue and unable to ambulate get out of bed. Coronary artery with history of CABG and stent placement Diabetes type 2 insulin-dependent Hypothyroidism Hyperlipidemia Prior history of smoking DVT prophylaxis patient is already on Eliquis Diabetic peripheral neuropathy Iron deficiency anemia Plan: Continue with antibiotic as per ID team, currently on ceftriaxone, fluconazole and Flagyl Patient also on Eliquis 5 mg and aspirin Infectious disease consult Vascular surgery disease consult enterprise architect evaluated the patien and signed off the case Lower Levemir to 10 units with close glucose monitoring Continue with Coreg but may hold amiodarone. Discussed with cardiology and defer further management to them Labs and medication were reviewed.. Continue same treatment. Continue with symptomatic treatment. Resume home medication. Monitor labs and vitals. DVT and GI prophylaxis. Further recommendations as per clinical course of the patient DVT prophylaxis: Subcutaneous heparin GI Prophylaxis: Pepcid PT/OT: P subacute rehab, needs 14/09 care Prognosis is guarded
[2023-08-20 21:17] LABS: Glucose,Whole Blood 160 mg/dL (70-110)
[2023-08-21 05:40] LABS: Glucose,Whole Blood 117 mg/dL (70-110)
[2023-08-21 12:11] LABS: Glucose,Whole Blood 114 mg/dL (70-110)
--- NOTE | 2023-08-21 14:36 | P.PN ---
Subjective Progress Note Date: 08/21/23 Principal diagnosis: Reason for follow-up is infected left heel pressure ulcer Patient is a 67-year-old male with a past medical history negative for hypertension hyperlipidemia diabetes mellitus history of left heel infected pressure ulcer status post debridement with a recent culture positive for Proteus Christina and staph epi patient did get a PICC line and was discharged home on IV Rocephin, subsequently brought back to the hospital by EMS and the patient was admitted to take care of himself and get his medication. On today's evaluation that is 08/21/2023, the patient continues to be afebrile, the patient is on room air and breathing comfortably, the Pt denies having any chest pain or cough, the patient denies having any abdominal pain complaining of some nausea and unable to eat but no abdominal pain no diarrhea or pain to the left heel area. No new lab has been repeated today Objective - Vital Signs Vital signs: Vital Signs Temp 98.4 F 08/21/23 14:15 Pulse 89 08/21/23 14:15 Resp 18 08/21/23 14:15 BP 128/71 08/21/23 14:15 Pulse Ox 94 L 08/21/23 14:15 FiO2 Intake & Output 08/20/23 08/21/23 08/21/23 18:59 06:59 18:59 Intake Total 816 236 Output Total 600 200 550 Balance 216 -200 -314 Weight 94.5 kg 91 kg Intake: Oral 816 236 Output: Urine 600 200 550 Other: Voiding Method External Catheter External Catheter External Catheter - Exam GENERAL DESCRIPTION: An elderly male lying in bed in no distress RESPIRATORY SYSTEM: Unlabored breathing , decreased breath sounds at bases HEART: S1 S2 regular rate and rhythm , ABDOMEN: Soft , no tenderness EXTREMITIES: Left heel wound is currently dressed - Labs CBC & Chem 7: 08/15/23 06:27 08/16/23 09:24 Labs: Abnormal Lab Results - Last 24 Hours (Table) 08/20/23 08/20/23 08/21/23 Range/Units 17:15 21:07 05:37 POC Glucose (mg/dL) 141 H 160 H 117 H (70-110) mg/dL 08/21/23 Range/Units 12:09 POC Glucose (mg/dL) 114 H (70-110) mg/dL Assessment and Plan (1) Pressure ulcer of left heel, stage 3 Current Visit: Yes Status: Acute Code(s): L89.623 - PRESSURE ULCER OF LEFT HEEL, STAGE 3 SNOMED Code(s): 25164139056991 (2) Cellulitis of left foot Current Visit: No Status: Acute Code(s): L03.116 - CELLULITIS OF LEFT LOWER LIMB SNOMED Code(s): 52544055329601996 (3) Leukocytosis Current Visit: Yes Status: Acute Code(s): D72.829 - ELEVATED WHITE BLOOD CELL COUNT, UNSPECIFIED SNOMED Code(s): 580858730 Plan: 1patient with a left heel infected pressure ulcer with the last culture positive for Proteus Christina and staph epi and the patient has been advised Rocephin 2 g daily sent home as he has no long term days left hand the patient was unable to take care of himself at home subsequent has been brought back to the hospital not running any fever white count has been normal left heel did have slough tissue minimal surrounding redness 2patient to continue local wound care with Santyl for left heel wound followed by moist dressing change daily keep the area of the pressure, vascular surgery evaluated the patient and recommend to continue with local treatment with the Santyl and recommending any further debridement 3patient currently being treated Rocephin 2 g daily along with oral Flagyl while inpatient and continue local wound care as ordered Dictation was produced using Portr dictation software. please excuse any grammatical, word or spelling errors. Time with Patient: Less than 30
[2023-08-21 16:54] LABS: Glucose,Whole Blood 100 mg/dL (70-110)
[2023-08-21 20:36] LABS: Glucose,Whole Blood 109 mg/dL (70-110)
--- NOTE | 2023-08-21 22:31 | P.PN ---
Subjective 67-year-old male patient, history of coronary artery disease status post PCI as well as CABG, cardiomyopathy, hypertension, hyperlipidemia, persistent atrial fibrillation, diabetes mellitus type 2, chronic kidney disease stage III, recent hospitalization earlier in July for which she was treated for diabetic foot ulcer/cellulitis of the left foot discharged home on IV antibiotics, seen by cardiology during that hospitalization for atrial fibrillation and underwent ALEXIA and cardioversion on 08/08. Patient presented to the emergency center due to inability to care for himself at home. He has been urinating and defecating on himself. EMS found him to be hypoxic. Patient denies having any shortness of breath, no chest pain, no dizziness, no palpitations. No PND. He has occasional cough. No fever. No blood in his urine or stools. He denies any syncopal episodes. He denies history of being told he had CHF. He has lower extremity edema that comes and goes. He states he has not walked in 1 to 2 weeks. He denies any increased shortness of breath with activity nor at rest. Patient is seen today in the emergency center waiting for bed on the cardiac stepdown unit. Blood pressure 163/65, heart rate 56, pulse ox 98% on room air. Patient is afebrile. Patient has been started on IV Lasix 40 mg daily. EKG: Sinus rhythm with first-degree block, IVCD. Chest x-ray: Cardiomegaly and mild pulmonary vascular congestion. 08/09/2023: ALEXIA and cardioversion. Mild mitral regurgitation. No evidence of PFO. Left atrial appendage is free of clot. EF 25 to 30%. Lexiscan Cardiolite stress test performed in the office on 03/01/2020 revealed inconclusive EKG part of the stress test due to baseline EKG abnormalities. Abnormal nuclear scan showing evidence of prior anterior wall AR with mild LV dysfunction without any ischemia. 08/14/2023 Patient is seen and evaluated in room at bedside; discussed with nursing staff; specific complaints reported Vital signs reviewed and reveal temperature of 98.1, pulse 66, respiration 18 and blood pressure 186/104, O2 saturation of 92% Blood work reveals a WBC of 11.7, hemoglobin of 11, platelet count of 185, sodium 146, potassium 3.6, BUNs/creatinine of 20/1.76 and blood glucose 145 --Patient's blood pressure remains markedly elevated; hydralazine has been increased; cardiology recommending to add Imdur; amlodipine was added this morning; plan is to discontinue amlodipine once blood pressure is better controlled due to cardiomyopathy 08/16/23 This is a pleasant 67 years old male with past medical history of multiple medical problems Was admitted from emergency room for left foot cellulitis and then discharged home however he had difficulty getting into his home so he came to emergency room back. Patient evaluated by ID team and saw runner and found to have acute urinary tract infection with generalized weakness. Patient states that he has been having burning in his urine. No urine culture was sent. Other chronic medical problems including CKD stage III, chronic systolic CHF with ejection fraction 35% and A-fib and recent left heel infected pressure ulcer. Culture was growing Christina Staph epidermidis and Proteus Vascular surgery has been consulted for wound evaluation and possible need for debridement Also physical therapy recommended subacute rehab however patient states that he has finished his date Currently he is covered with ceftriaxone, fluconazole and Flagyl. Also he is on Eliquis and aspirin 81 mg 08/17/2023 Patient was bradycardic with heart rate about 47 so we held his amiodarone Also his glucose was on the low side so we lowered his Levemir 15 units down to 10 units at bedtime Other than that patient lying in bed generally weeks states the same He remains on broad-spectrum antibiotic I discussed the case with medical social worker, patient is not going to be accepted by [facility] as his insurance is not willing to pay. Previous [facility] asking him for about $14,000 for each of them. Also he cannot apply for Medicaid because he has properties that he does not want to give it up. Brother is involved and he reported to Adult Protective Services per staff. 08/19/2023 Patient awake alert, mentation at baseline No abdominal pain no other new complaint, he still getting antibiotic for his infection. Left heel with dressing Patient is not eating hospital food stating he does not like the hospital food. Is associated with some nausea. Patient was not eating much and his sugar was on the low side. Patient already passed swallow evaluation and was placed on dysphagia diet but again he is not liking the hospital food. He reports also some nausea so we will add some Zofran or alternative. Also reports some 3 loose bowel movement yesterday but none today, we will check for C. difficile although the suspicion is low. Discussed with therapeutic case manager and the patient himself, there is no fpc will accept him because of his co-pay, insurance coverage. Patient also wants to go home. He would have some difficulty taking care of himself but he has no other options. As an alternative his brother he is going to check on him and adult protective services also involved, patient aware of both of these and he is agreeable. He told staff he was managed to sell his house so he can go to rehab and get the best care for him. 08/20/2023 His diarrhea stopped today He is eating his lunch currently with no difficulty. He is eating chicken tenders C. difficile was checked was negative I discussed the case with therapeutic case manager, there is a facility might take him on Wednesday therefore continue monitoring. 08/21/2023 Patient seen in bed comfortable No new complaint Clinically the same and doing well Patient today telling me he understand that his stay in over the weekend for his last chance for one of the nurse homes out of time to accept him while he is pending his Medicaid case, all the other rehabs and [facility] has rejected because his insurance would not cover him and he has co-pay. Also insurance will not cover him since he has properties that he refused to sell to provide funds to take care of himself. Patient understands and confirms to me that if this fpc will not take him, we are going to discharge him home (he told me " I know there is nothing else you can do" ) and he agrees to go home despite he would have difficulty to take care of him and move around. He told me he has a wheelchair he can use but he would have difficulty to use the commode. He understands that his brother can check on him but not all the time, also we will try to send home health care. Also Adult Protective Services involved by medical social worker and his brother. Objective - Vital Signs Vital signs: Vital Signs Temp 97.5 F L 08/21/23 17:02 Pulse 49 L 08/21/23 17:02 Resp 16 08/21/23 17:02 BP 148/73 08/21/23 17:02 Pulse Ox 93 L 08/21/23 17:02 FiO2 Intake & Output 08/21/23 08/21/23 08/22/23 06:59 18:59 06:59 Intake Total 236 Output Total 200 850 Balance -200 -614 Weight 91 kg Intake: Oral 236 Output: Urine 200 850 Other: Voiding Method External Catheter External Catheter - Exam GENERAL: The patient is alert and oriented x3, not in any acute distress. Well developed, well nourished. HEENT: Pupils are round and equally reacting to light. EOMI. No scleral icterus. No conjunctival pallor. Normocephalic, atraumatic. No pharyngeal erythema. No thyromegaly. CARDIOVASCULAR: S1 and S2 present. No murmurs, rubs, or gallops. PULMONARY: Chest is clear to auscultation, no wheezing , no crackles. ABDOMEN: Soft, nontender, nondistended, normoactive bowel sounds. No palpable organomegaly. MUSCULOSKELETAL: No joint swelling or deformity. -EXTREMITIES: No cyanosis, clubbing, or pedal edema. Left heel pressure ulcer with a dressing in place NEUROLOGICAL: Gross neurological examination did not reveal any focal deficits. SKIN: No rashes. no petechiae. - Labs CBC & Chem 7: 08/15/23 06:27 08/16/23 09:24 Labs: Abnormal Lab Results - Last 24 Hours (Table) 08/20/23 08/21/23 08/21/23 Range/Units 21:07 05:37 12:09 POC Glucose (mg/dL) 160 H 117 H 114 H (70-110) mg/dL Assessment and Plan Assessment: Left heel unstageable diabetic foot ulcer with surrounding cellulitis. Cur rently on antibiotic course with ceftriaxone 2 g every 12 at home from recent discharge on 08/11/2023.surgery team evaluated for possible debridement UTI, acute cute on chronic CHF with systolic dysfunction ejection fraction 30 to 35% Uncontrolled hypertension Elevated troponin level likely type II AR CKD stage IV with baseline creatinine 1.8-2 Persistent atrial fibrillation status post ALEXIA and cardioversion on 08/09/2023 Generalized weakness and fatigue and unable to ambulate get out of bed. Coronary artery with history of CABG and stent placement Diabetes type 2 insulin-dependent Hypothyroidism Hyperlipidemia Prior history of smoking DVT prophylaxis patient is already on Eliquis Diabetic peripheral neuropathy Iron deficiency anemia Plan: Continue with antibiotic as per ID team, currently on ceftriaxone, fluconazole and Flagyl Patient also on Eliquis 5 mg and aspirin Infectious disease consult Vascular surgery disease consult saw runner evaluated the patien and signed off the case Lower Levemir to 10 units with close glucose monitoring Continue with Coreg but may hold amiodarone. Discussed with cardiology and defer further management to them Labs and medication were reviewed.. Continue same treatment. Continue with symptomatic treatment. Resume home medication. Monitor labs and vitals. DVT and GI prophylaxis. Further recommendations as per clinical course of the patient DVT prophylaxis: Subcutaneous heparin GI Prophylaxis: Pepcid PT/OT: P subacute rehab, needs 24/7 care Prognosis is guarded
[2023-08-22 06:39] LABS: Glucose,Whole Blood 105 mg/dL (70-110)
--- NOTE | 2023-08-22 10:59 | P.PN ---
Subjective 67-year-old male patient, history of coronary artery disease status post PCI as well as CABG, cardiomyopathy, hypertension, hyperlipidemia, persistent atrial fibrillation, diabetes mellitus type 2, chronic kidney disease stage III, recent hospitalization earlier in July for which she was treated for diabetic foot ulcer/cellulitis of the left foot discharged home on IV antibiotics, seen by cardiology during that hospitalization for atrial fibrillation and underwent ALEXIA and cardioversion on 08/08. Patient presented to the emergency center due to inability to care for himself at home. He has been urinating and defecating on himself. EMS found him to be hypoxic. Patient denies having any shortness of breath, no chest pain, no dizziness, no palpitations. No PND. He has occasional cough. No fever. No blood in his urine or stools. He denies any syncopal episodes. He denies history of being told he had CHF. He has lower extremity edema that comes and goes. He states he has not walked in 1 to 2 weeks. He denies any increased shortness of breath with activity nor at rest. Patient is seen today in the emergency center waiting for bed on the cardiac stepdown unit. Blood pressure 163/65, heart rate 56, pulse ox 98% on room air. Patient is afebrile. Patient has been started on IV Lasix 40 mg daily. EKG: Sinus rhythm with first-degree block, IVCD. Chest x-ray: Cardiomegaly and mild pulmonary vascular congestion. 08/09/2023: ALEXIA and cardioversion. Mild mitral regurgitation. No evidence of PFO. Left atrial appendage is free of clot. EF 25 to 30%. Lexiscan Cardiolite stress test performed in the office on 03/01/2020 revealed inconclusive EKG part of the stress test due to baseline EKG abnormalities. Abnormal nuclear scan showing evidence of prior anterior wall UT with mild LV dysfunction without any ischemia. 08/14/2023 Patient is seen and evaluated in room at bedside; discussed with nursing staff; specific complaints reported Vital signs reviewed and reveal temperature of 98.1, pulse 66, respiration 18 and blood pressure 186/104, O2 saturation of 92% Blood work reveals a WBC of 11.7, hemoglobin of 11, platelet count of 185, sodium 146, potassium 3.6, BUNs/creatinine of 20/1.76 and blood glucose 145 --Patient's blood pressure remains markedly elevated; hydralazine has been increased; cardiology recommending to add Imdur; amlodipine was added this morning; plan is to discontinue amlodipine once blood pressure is better controlled due to cardiomyopathy 08/16/23 This is a pleasant 67 years old male with past medical history of multiple medical problems Was admitted from emergency room for left foot cellulitis and then discharged home however he had difficulty getting into his home so he came to emergency room back. Patient evaluated by ID team and district sales coordinator and found to have acute urinary tract infection with generalized weakness. Patient states that he has been having burning in his urine. No urine culture was sent. Other chronic medical problems including CKD stage III, chronic systolic CHF with ejection fraction 35% and A-fib and recent left heel infected pressure ulcer. Culture was growing Christina Staph epidermidis and Proteus Vascular surgery has been consulted for wound evaluation and possible need for debridement Also physical therapy recommended subacute rehab however patient states that he has finished his date Currently he is covered with ceftriaxone, fluconazole and Flagyl. Also he is on Eliquis and aspirin 81 mg 08/17/2023 Patient was bradycardic with heart rate about 47 so we held his amiodarone Also his glucose was on the low side so we lowered his Levemir 15 units down to 10 units at bedtime Other than that patient lying in bed generally weeks states the same He remains on broad-spectrum antibiotic I discussed the case with social work professor, patient is not going to be accepted by jail as his insurance is not willing to pay. Previous jail asking him for about $14,000 for each of them. Also he cannot apply for Medicaid because he has properties that he does not want to give it up. Brother is involved and he reported to Adult Protective Services per staff. 08/19/2023 Patient awake alert, mentation at baseline No abdominal pain no other new complaint, he still getting antibiotic for his infection. Left heel with dressing Patient is not eating hospital food stating he does not like the hospital food. Is associated with some nausea. Patient was not eating much and his sugar was on the low side. Patient already passed swallow evaluation and was placed on dysphagia diet but again he is not liking the hospital food. He reports also some nausea so we will add some Zofran or alternative. Also reports some 3 loose bowel movement yesterday but none today, we will check for C. difficile although the suspicion is low. Discussed with business case analyst and the patient himself, there is no jail will accept him because of his co-pay, insurance coverage. Patient also wants to go home. He would have some difficulty taking care of himself but he has no other options. As an alternative his brother he is going to check on him and adult protective services also involved, patient aware of both of these and he is agreeable. He told staff he was managed to sell his house so he can go to rehab and get the best care for him. 08/20/2023 His diarrhea stopped today He is eating his lunch currently with no difficulty. He is eating chicken tenders C. difficile was checked was negative I discussed the case with business case analyst, there is a facility might take him on Wednesday therefore continue monitoring. 08/21/2023 Patient seen in bed comfortable No new complaint Clinically the same and doing well Patient today telling me he understand that his stay in over the weekend for his last chance for one of the nurse homes out of time to accept him while he is pending his Medicaid case, all the other rehabs and jail has rejected because his insurance would not cover him and he has co-pay. Also insurance will not cover him since he has properties that he refused to sell to provide funds to take care of himself. Patient understands and confirms to me that if this jail will not take him, we are going to discharge him home (he told me " I know there is nothing else you can do" ) and he agrees to go home despite he would have difficulty to take care of him and move around. He told me he has a wheelchair he can use but he would have difficulty to use the commode. He understands that his brother can check on him but not all the time, also we will try to send home health care. Also Adult Protective Services involved by social work professor and his brother. 08/22/2023 Patient resting in bed with no difficulty He has some abdominal discomfort after eating, controlled by Tylenol No other new complaint Pending placement tomorrow, otherwise he will be discharged home with the help of his brother, home health care and Adult Protective Services. Patient has wheelchair at home As he confirmed to me Objective - Vital Signs Vital signs: Vital Signs Temp 97.7 F 08/22/23 06:35 Pulse 59 L 08/22/23 06:35 Resp 16 08/22/23 06:35 BP 159/69 08/22/23 06:35 Pulse Ox 95 08/22/23 06:35 FiO2 Intake & Output 08/21/23 08/22/23 08/22/23 18:59 06:59 18:59 Intake Total 236 Output Total 850 600 Balance -614 -600 Weight 91.5 kg Intake: Oral 236 Output: Urine 850 600 Other: Voiding Method External Catheter External Catheter External Catheter # Bowel Movements 1 - Exam GENERAL: The patient is alert and oriented x3, not in any acute distress. Well developed, well nourished. HEENT: Pupils are round and equally reacting to light. EOMI. No scleral icterus. No conjunctival pallor. Normocephalic, atraumatic. No pharyngeal erythema. No thyromegaly. CARDIOVASCULAR: S1 and S2 present. No murmurs, rubs, or gallops. PULMONARY: Chest is clear to auscultation, no wheezing , no crackles. ABDOMEN: Soft, nontender, nondistended, normoactive bowel sounds. No palpable organomegaly. MUSCULOSKELETAL: No joint swelling or deformity. -EXTREMITIES: No cyanosis, clubbing, or pedal edema. Left heel pressure ulcer with a dressing in place NEUROLOGICAL: Gross neurological examination did not reveal any focal deficits. SKIN: No rashes. no petechiae. - Labs CBC & Chem 7: 08/15/23 06:27 08/16/23 09:24 Labs: Abnormal Lab Results - Last 24 Hours (Table) 08/21/23 Range/Units 12:09 POC Glucose (mg/dL) 114 H (70-110) mg/dL Assessment and Plan Assessment: Left heel unstageable diabetic foot ulcer with surrounding cellulitis. Currently on antibiotic course with ceftriaxone 2 g every 12 at home from recent discharge on 08/11/2023.surgery team evaluated for possible debridement UTI, acute cute on chronic CHF with systolic dysfunction ejection fraction 30 to 35% Uncontrolled hypertension Elevated troponin level likely type II UT CKD stage IV with baseline creatinine 1.8-2 Persistent atrial fibrillation status post ALEXIA and cardioversion on 08/09/2023 Generalized weakness and fatigue and unable to ambulate get out of bed. Coronary artery with history of CABG and stent placement Diabetes type 2 insulin-dependent Hypothyroidism Hyperlipidemia Prior history of smoking DVT prophylaxis patient is already on Eliquis Diabetic peripheral neuropathy Iron deficiency anemia Plan: Continue with antibiotic as per ID team, currently on ceftriaxone, fluconazole and Flagyl Patient also on Eliquis 5 mg and aspirin Infectious disease consult Vascular surgery disease consult district sales coordinator evaluated the patien and signed off the case Lower Levemir to 10 units with close glucose monitoring Continue with Coreg but may hold amiodarone. Discussed with cardiology and defer further management to them Labs and medication were reviewed.. Continue same treatment. Continue with symptomatic treatment. Resume home medication. Monitor labs and vitals. DVT and GI prophylaxis. Further recommendations as per clinical course of the patient DVT prophylaxis: Subcutaneous heparin GI Prophylaxis: Pepcid PT/OT: P subacute rehab, needs 24/ care Prognosis is guarded
[2023-08-22 12:19] LABS: Glucose,Whole Blood 140 mg/dL (70-110)
--- NOTE | 2023-08-22 15:19 | P.PN ---
Subjective Progress Note Date: 08/22/23 Principal diagnosis: Reason for follow-up is infected left heel pressure ulcer Patient is a 67-year-old male with a past medical history negative for hypertension hyperlipidemia diabetes mellitus history of left heel infected pressure ulcer status post debridement with a recent culture positive for Proteus Christina and staph epi patient did get a PICC line and was discharged home on IV Rocephin, subsequently brought back to the hospital by EMS and the patient was admitted to take care of himself and get his medication. On today's evaluation that is 08/22/2023, Patient is afebrile patient is currently on room air and denies having any shortness of breath, the patient denies any chest pain or cough, the patient has been complaining of some nausea and decreased oral intake but no vomiting no abdominal pain or pain to the left heel wound. No new labs has been obtained today Objective - Vital Signs Vital signs: Vital Signs Temp 97.7 F 08/22/23 06:35 Pulse 54 L 08/22/23 12:57 Resp 16 08/22/23 06:35 BP 142/72 08/22/23 12:57 Pulse Ox 95 08/22/23 06:35 FiO2 Intake & Output 08/21/23 08/22/23 08/22/23 18:59 06:59 18:59 Intake Total 236 Output Total 850 600 Balance -614 -600 Weight 91.5 kg Intake: Oral 236 Output: Urine 850 600 Other: Voiding Method External Catheter External Catheter External Catheter # Bowel Movements 1 2 - Exam GENERAL DESCRIPTION: An elderly male lying in bed in no distress RESPIRATORY SYSTEM: Unlabored breathing , decreased breath sounds at bases HEART: S1 S2 regular rate and rhythm , ABDOMEN: Soft , no tenderness EXTREMITIES: Left heel wound is currently dressed - Labs CBC & Chem 7: 08/15/23 06:27 08/16/23 09:24 Labs: Abnormal Lab Results - Last 24 Hours (Table) 08/22/23 Range/Units 12:17 POC Glucose (mg/dL) 140 H (70-110) mg/dL Assessment and Plan (1) Pressure ulcer of left heel, stage 3 Current Visit: Yes Status: Acute Code(s): L89.623 - PRESSURE ULCER OF LEFT HEEL, STAGE 3 SNOMED Code(s): 55903412732122 (2) Cellulitis of left foot Current Visit: No Status: Acute Code(s): L03.116 - CELLULITIS OF LEFT LOWER LIMB SNOMED Code(s): 16892446251370081 (3) Leukocytosis Current Visit: Yes Status: Acute Code(s): D72.829 - ELEVATED WHITE BLOOD CELL COUNT, UNSPECIFIED SNOMED Code(s): 333317079 Plan: 1patient with a left heel infected pressure ulcer with the last culture positive for Proteus Christina and staph epi and the patient has been advised Rocephin 2 g daily sent home as he has no prison days left hand the patient was unable to take care of himself at home subsequent has been brought back to the hospital not running any fever white count has been normal left heel did have slough tissue minimal surrounding redness 2patient to continue local wound care with Santyl for left heel wound followed by moist dressing change daily keep the area of the pressure, vascular surgery evaluated the patient and recommend to continue with local treatment with the Santyl and recommending any further debridement 3patient to continue Rocephin 2 g daily along with oral Flagyl while inpatient currently waiting for placement Dictation was produced using [employer] dictation software. please excuse any grammatical, word or spelling errors. Time with Patient: Less than 30
[2023-08-22 16:53] LABS: Glucose,Whole Blood 101 mg/dL (70-110)
[2023-08-22 21:32] LABS: Glucose,Whole Blood 96 mg/dL (70-110)
[2023-08-23 05:37] LABS: Glucose,Whole Blood 87 mg/dL (70-110)
[2023-08-23 12:03] LABS: Glucose,Whole Blood 84 mg/dL (70-110)
[2023-08-23 17:05] LABS: Glucose,Whole Blood 113 mg/dL (70-110)
--- NOTE | 2023-08-23 18:08 | P.PN ---
Subjective Progress Note Date: 08/23/23 Principal diagnosis: Reason for follow-up is infected left heel pressure ulcer Patient is a 67-year-old male with a past medical history negative for hypertension hyperlipidemia diabetes mellitus history of left heel infected pressure ulcer status post debridement with a recent culture positive for Proteus Christina and staph epi patient did get a PICC line and was discharged home on IV Rocephin, subsequently brought back to the hospital by EMS and the patient was admitted to take care of himself and get his medication. On today's evaluation that is 08/23/2023, patient has been afebrile, patient is breathing comfortably and is currently on room air, patient denies having any significant cough no chest pain shortness of breath, patient to complain of nausea unable to eat no abdominal pain did have a bowel movement denies pain to the left foot. Patient did not have any blood work today Objective - Vital Signs Vital signs: Vital Signs Temp 97.4 F L 08/23/23 14:00 Pulse 56 L 08/23/23 18:01 Resp 16 08/23/23 14:00 BP 149/43 08/23/23 18:01 Pulse Ox 93 L 08/23/23 14:00 FiO2 Intake & Output 08/22/23 08/23/23 08/23/23 18:59 06:59 18:59 Intake Total 0 Output Total 600 300 450 Balance -600 -300 -450 Weight 95 kg 95 kg Intake: Oral 0 Output: Urine 600 300 450 Other: Voiding Method External Catheter External Catheter External Catheter # Bowel Movements 1 - Exam GENERAL DESCRIPTION: An elderly male lying in bed in no distress RESPIRATORY SYSTEM: Unlabored breathing , decreased breath sounds at bases HEART: S1 S2 regular rate and rhythm , ABDOMEN: Soft , no tenderness EXTREMITIES: Left heel wound is currently dressed - Labs CBC & Chem 7: 08/15/23 06:27 08/16/23 09:24 Labs: Abnormal Lab Results - Last 24 Hours (Table) 08/23/23 Range/Units 17:03 POC Glucose (mg/dL) 113 H (70-110) mg/dL Assessment and Plan (1) Pressure ulcer of left heel, stage 3 Current Visit: Yes Status: Acute Code(s): L89.623 - PRESSURE ULCER OF LEFT HEEL, STAGE 3 SNOMED Code(s): 18610572935090 (2) Cellulitis of left foot Current Visit: No Status: Acute Code(s): L03.116 - CELLULITIS OF LEFT LOWER LIMB SNOMED Code(s): 15049900165338909 (3) Leukocytosis Current Visit: Yes Status: Acute Code(s): D72.829 - ELEVATED WHITE BLOOD CELL COUNT, UNSPECIFIED SNOMED Code(s): 931602626 Plan: 1patient with a left heel infected pressure ulcer with the last culture positive for Proteus Christina and staph epi and the patient has been advised Rocephin 2 g daily sent home as he has no prison days left hand the patient was unable to take care of himself at home subsequent has been brought back to the hospital not running any fever white count has been normal left heel did have slough tissue minimal surrounding redness 2patient to continue local wound care with Santyl for left heel wound followed by moist dressing change daily keep the area of the pressure, vascular surgery evaluated the patient and recommend to continue with local treatment with the Santyl and recommending any further debridement 3patient is currently being treated Rocephin 2 g daily along with oral Flagyl plan to switch to p.o. currently waiting for placement Dictation was produced using [employer] dictation software. please excuse any grammatical, word or spelling errors. Time with Patient: Less than 30
[2023-08-23 20:03] LABS: Glucose,Whole Blood 132 mg/dL (70-110)
[2023-08-24 06:13] LABS: Glucose,Whole Blood 79 mg/dL (70-110)
--- NOTE | 2023-08-24 07:14 | P.PN ---
Subjective 67-year-old male patient, history of coronary artery disease status post PCI as well as CABG, cardiomyopathy, hypertension, hyperlipidemia, persistent atrial fibrillation, diabetes mellitus type 2, chronic kidney disease stage III, recent hospitalization earlier in July for which she was treated for diabetic foot ulcer/cellulitis of the left foot discharged home on IV antibiotics, seen by cardiology during that hospitalization for atrial fibrillation and underwent ALEXIA and cardioversion on 08/08. Patient presented to the emergency center due to inability to care for himself at home. He has been urinating and defecating on himself. EMS found him to be hypoxic. Patient denies having any shortness of breath, no chest pain, no dizziness, no palpitations. No PND. He has occasional cough. No fever. No blood in his urine or stools. He denies any syncopal episodes. He denies history of being told he had CHF. He has lower extremity edema that comes and goes. He states he has not walked in 1 to 2 weeks. He denies any increased shortness of breath with activity nor at rest. Patient is seen today in the emergency center waiting for bed on the cardiac stepdown unit. Blood pressure 163/65, heart rate 56, pulse ox 98% on room air. Patient is afebrile. Patient has been started on IV Lasix 40 mg daily. EKG: Sinus rhythm with first-degree block, IVCD. Chest x-ray: Cardiomegaly and mild pulmonary vascular congestion. 08/09/2023: ALEXIA and cardioversion. Mild mitral regurgitation. No evidence of PFO. Left atrial appendage is free of clot. EF 25 to 30%. Lexiscan Cardiolite stress test performed in the office on 03/01/2020 revealed inconclusive EKG part of the stress test due to baseline EKG abnormalities. Abnormal nuclear scan showing evidence of prior anterior wall MD with mild LV dysfunction without any ischemia. 08/14/2023 Patient is seen and evaluated in room at bedside; discussed with nursing staff; specific complaints reported Vital signs reviewed and reveal temperature of 98.1, pulse 66, respiration 18 and blood pressure 186/104, O2 saturation of 92% Blood work reveals a WBC of 11.7, hemoglobin of 11, platelet count of 185, sodium 146, potassium 3.6, BUNs/creatinine of 20/1.76 and blood glucose 145 --Patient's blood pressure remains markedly elevated; hydralazine has been increased; cardiology recommending to add Imdur; amlodipine was added this morning; plan is to discontinue amlodipine once blood pressure is better controlled due to cardiomyopathy 08/16/23 This is a pleasant 67 years old male with past medical history of multiple medical problems Was admitted from emergency room for left foot cellulitis and then discharged home however he had difficulty getting into his home so he came to emergency room back. Patient evaluated by ID team and clay caster and found to have acute urinary tract infection with generalized weakness. Patient states that he has been having burning in his urine. No urine culture was sent. Other chronic medical problems including CKD stage III, chronic systolic CHF with ejection fraction 35% and A-fib and recent left heel infected pressure ulcer. Culture was growing Christina Staph epidermidis and Proteus Vascular surgery has been consulted for wound evaluation and possible need for debridement Also physical therapy recommended subacute rehab however patient states that he has finished his date Currently he is covered with ceftriaxone, fluconazole and Flagyl. Also he is on Eliquis and aspirin 81 mg 08/17/2023 Patient was bradycardic with heart rate about 47 so we held his amiodarone Also his glucose was on the low side so we lowered his Levemir 15 units down to 10 units at bedtime Other than that patient lying in bed generally weeks states the same He remains on broad-spectrum antibiotic I discussed the case with social science research assistant, patient is not going to be accepted by shelter as his insurance is not willing to pay. Previous shelter asking him for about $14,000 for each of them. Also he cannot apply for Medicaid because he has properties that he does not want to give it up. Brother is involved and he reported to Adult Protective Services per staff. 08/19/2023 Patient awake alert, mentation at baseline No abdominal pain no other new complaint, he still getting antibiotic for his infection. Left heel with dressing Patient is not eating hospital food stating he does not like the hospital food. Is associated with some nausea. Patient was not eating much and his sugar was on the low side. Patient already passed swallow evaluation and was placed on dysphagia diet but again he is not liking the hospital food. He reports also some nausea so we will add some Zofran or alternative. Also reports some 3 loose bowel movement yesterday but none today, we will check for C. difficile although the suspicion is low. Discussed with case management social worker and the patient himself, there is no shelter will accept him because of his co-pay, insurance coverage. Patient also wants to go home. He would have some difficulty taking care of himself but he has no other options. As an alternative his brother he is going to check on him and adult protective services also involved, patient aware of both of these and he is agreeable. He told staff he was managed to sell his house so he can go to rehab and get the best care for him. 08/20/2023 His diarrhea stopped today He is eating his lunch currently with no difficulty. He is eating chicken tenders C. difficile was checked was negative I discussed the case with case management social worker, there is a facility might take him on Wednesday therefore continue monitoring. 08/21/2023 Patient seen in bed comfortable No new complaint Clinically the same and doing well Patient today telling me he understand that his stay in over the weekend for his last chance for one of the nurse homes out of time to accept him while he is pending his Medicaid case, all the other rehabs and shelter has rejected because his insurance would not cover him and he has co-pay. Also insurance will not cover him since he has properties that he refused to sell to provide funds to take care of himself. Patient understands and confirms to me that if this shelter will not take him, we are going to discharge him home (he told me " I know there is nothing else you can do" ) and he agrees to go home despite he would have difficulty to take care of him and move around. He told me he has a wheelchair he can use but he would have difficulty to use the commode. He understands that his brother can check on him but not all the time, also we will try to send home health care. Also Adult Protective Services involved by social science research assistant and his brother. 08/22/2023 Patient resting in bed with no difficulty He has some abdominal discomfort after eating, controlled by Tylenol No other new complaint Pending placement tomorrow, otherwise he will be discharged home with the help of his brother, home health care and Adult Protective Services. Patient has wheelchair at home As he confirmed to me 08/23/23 Patient currently is stable Patient states he is the same Pending placement, patient understand otherwise he will go home with home health care Objective - Vital Signs Vital signs: Vital Signs Temp 97.4 F L 08/23/23 14:00 Pulse 54 L 08/23/23 14:00 Resp 16 08/23/23 14:00 BP 137/70 08/23/23 14:00 Pulse Ox 93 L 08/23/23 14:00 FiO2 Intake & Output 08/22/23 08/23/23 08/23/23 18:59 06:59 18:59 Intake Total 0 Output Total 600 300 450 Balance -600 -300 -450 Weight 95 kg 95 kg Intake: Oral 0 Output: Urine 600 300 450 Other: Voiding Method External Catheter External Catheter External Catheter # Bowel Movements 1 - Exam GENERAL: The patient is alert and oriented x3, not in any acute distress. Well developed, well nourished. HEENT: Pupils are round and equally reacting to light. EOMI. No scleral icterus. No conjunctival pallor. Normocephalic, atraumatic. No pharyngeal erythema. No thyromegaly. CARDIOVASCULAR: S1 and S2 present. No murmurs, rubs, or gallops. PULMONARY: Chest is clear to auscultation, no wheezing , no crackles. ABDOMEN: Soft, nontender, nondistended, normoactive bowel sounds. No palpable organomegaly. MUSCULOSKELETAL: No joint swelling or deformity. -EXTREMITIES: No cyanosis, clubbing, or pedal edema. Left heel pressure ulcer with a dressing in place NEUROLOGICAL: Gross neurological examination did not reveal any focal deficits. SKIN: No rashes. no petechiae. - Labs CBC & Chem 7: 08/15/23 06:27 08/16/23 09:24 Assessment and Plan Assessment: Left heel unstageable diabetic foot ulcer with surrounding cellulitis. Currently on antibiotic course with ceftriaxone 2 g every 12 at home from recent discharge on 08/11/2023.surgery team evaluated for possible debridement UTI, acute cute on chronic CHF with systolic dysfunction ejection fraction 30 to 35% Uncontrolled hypertension Elevated troponin level likely type II MD CKD stage IV with baseline creatinine 1.8-2 Persistent atrial fibrillation status post ALEXIA and cardioversion on 08/09/2023 Generalized weakness and fatigue and unable to ambulate get out of bed. Coronary artery with history of CABG and stent placement Diabetes type 2 insulin-dependent Hypothyroidism Hyperlipidemia Prior history of smoking DVT prophylaxis patient is already on Eliquis Diabetic peripheral neuropathy Iron deficiency anemia Plan: Continue with antibiotic as per ID team, currently on ceftriaxone, fluconazole and Flagyl Patient also on Eliquis 5 mg and aspirin Infectious disease consult Vascular surgery disease consult clay caster evaluated the patien and signed off the case Lower Levemir to 10 units with close glucose monitoring Continue with Coreg but may hold amiodarone. Discussed with cardiology and defer further management to them Labs and medication were reviewed.. Continue same treatment. Continue with symptomatic treatment. Resume home medication. Monitor labs and vitals. DVT and GI prophylaxis. Further recommendations as per clinical course of the patient DVT prophylaxis: Subcutaneous heparin GI Prophylaxis: Pepcid PT/OT: P subacute rehab, needs 24/ care Prognosis is guarded
--- NOTE | 2023-08-24 10:27 | P.PN ---
Subjective 67-year-old male patient, history of coronary artery disease status post PCI as well as CABG, cardiomyopathy, hypertension, hyperlipidemia, persistent atrial fibrillation, diabetes mellitus type 2, chronic kidney disease stage III, recent hospitalization earlier in July for which she was treated for diabetic foot ulcer/cellulitis of the left foot discharged home on IV antibiotics, seen by cardiology during that hospitalization for atrial fibrillation and underwent ALEXIA and cardioversion on 08/08. Patient presented to the emergency center due to inability to care for himself at home. He has been urinating and defecating on himself. EMS found him to be hypoxic. Patient denies having any shortness of breath, no chest pain, no dizziness, no palpitations. No PND. He has occasional cough. No fever. No blood in his urine or stools. He denies any syncopal episodes. He denies history of being told he had CHF. He has lower extremity edema that comes and goes. He states he has not walked in 1 to 2 weeks. He denies any increased shortness of breath with activity nor at rest. Patient is seen today in the emergency center waiting for bed on the cardiac stepdown unit. Blood pressure 163/65, heart rate 56, pulse ox 98% on room air. Patient is afebrile. Patient has been started on IV Lasix 40 mg daily. EKG: Sinus rhythm with first-degree block, IVCD. Chest x-ray: Cardiomegaly and mild pulmonary vascular congestion. 08/09/2023: ALEXIA and cardioversion. Mild mitral regurgitation. No evidence of PFO. Left atrial appendage is free of clot. EF 25 to 30%. Lexiscan Cardiolite stress test performed in the office on 03/01/2020 revealed inconclusive EKG part of the stress test due to baseline EKG abnormalities. Abnormal nuclear scan showing evidence of prior anterior wall MD with mild LV dysfunction without any ischemia. 08/14/2023 Patient is seen and evaluated in room at bedside; discussed with nursing staff; specific complaints reported Vital signs reviewed and reveal temperature of 98.1, pulse 66, respiration 18 and blood pressure 186/104, O2 saturation of 92% Blood work reveals a WBC of 11.7, hemoglobin of 11, platelet count of 185, sodium 146, potassium 3.6, BUNs/creatinine of 20/1.76 and blood glucose 145 --Patient's blood pressure remains markedly elevated; hydralazine has been increased; cardiology recommending to add Imdur; amlodipine was added this morning; plan is to discontinue amlodipine once blood pressure is better controlled due to cardiomyopathy 08/16/23 This is a pleasant 67 years old male with past medical history of multiple medical problems Was admitted from emergency room for left foot cellulitis and then discharged home however he had difficulty getting into his home so he came to emergency room back. Patient evaluated by ID team and fiber artist and found to have acute urinary tract infection with generalized weakness. Patient states that he has been having burning in his urine. No urine culture was sent. Other chronic medical problems including CKD stage III, chronic systolic CHF with ejection fraction 35% and A-fib and recent left heel infected pressure ulcer. Culture was growing Christina Staph epidermidis and Proteus Vascular surgery has been consulted for wound evaluation and possible need for debridement Also physical therapy recommended subacute rehab however patient states that he has finished his date Currently he is covered with ceftriaxone, fluconazole and Flagyl. Also he is on Eliquis and aspirin 81 mg 08/17/2023 Patient was bradycardic with heart rate about 47 so we held his amiodarone Also his glucose was on the low side so we lowered his Levemir 15 units down to 10 units at bedtime Other than that patient lying in bed generally weeks states the same He remains on broad-spectrum antibiotic I discussed the case with social work msw, patient is not going to be accepted by retirement as his insurance is not willing to pay. Previous retirement asking him for about $14,000 for each of them. Also he cannot apply for Medicaid because he has properties that he does not want to give it up. Brother is involved and he reported to Adult Protective Services per staff. 08/19/2023 Patient awake alert, mentation at baseline No abdominal pain no other new complaint, he still getting antibiotic for his infection. Left heel with dressing Patient is not eating hospital food stating he does not like the hospital food. Is associated with some nausea. Patient was not eating much and his sugar was on the low side. Patient already passed swallow evaluation and was placed on dysphagia diet but again he is not liking the hospital food. He reports also some nausea so we will add some Zofran or alternative. Also reports some 3 loose bowel movement yesterday but none today, we will check for C. difficile although the suspicion is low. Discussed with corrections caseworker and the patient himself, there is no retirement will accept him because of his co-pay, insurance coverage. Patient also wants to go home. He would have some difficulty taking care of himself but he has no other options. As an alternative his brother he is going to check on him and adult protective services also involved, patient aware of both of these and he is agreeable. He told staff he was managed to sell his house so he can go to rehab and get the best care for him. 08/20/2023 His diarrhea stopped today He is eating his lunch currently with no difficulty. He is eating chicken tenders C. difficile was checked was negative I discussed the case with corrections caseworker, there is a facility might take him on Wednesday therefore continue monitoring. 08/21/2023 Patient seen in bed comfortable No new complaint Clinically the same and doing well Patient today telling me he understand that his stay in over the weekend for his last chance for one of the nurse homes out of time to accept him while he is pending his Medicaid case, all the other rehabs and retirement has rejected because his insurance would not cover him and he has co-pay. Also insurance will not cover him since he has properties that he refused to sell to provide funds to take care of himself. Patient understands and confirms to me that if this retirement will not take him, we are going to discharge him home (he told me " I know there is nothing else you can do" ) and he agrees to go home despite he would have difficulty to take care of him and move around. He told me he has a wheelchair he can use but he would have difficulty to use the commode. He understands that his brother can check on him but not all the time, also we will try to send home health care. Also Adult Protective Services involved by social work msw and his brother. 08/22/2023 Patient resting in bed with no difficulty He has some abdominal discomfort after eating, controlled by Tylenol No other new complaint Pending placement tomorrow, otherwise he will be discharged home with the help of his brother, home health care and Adult Protective Services. Patient has wheelchair at home As he confirmed to me 08/23/23 Patient currently is stable Patient states he is the same Pending placement, patient understand otherwise he will go home with home health care 08/24/23 We have a meeting with the patient and social work msw together. Patient clinically doing well and his medically stable pending placement. Patient was rejected by most of rehabs and nursing homes, however there is 1 more rehab willing to review his case and they were going to contact the patient today and he might be accepted otherwise he has to go back to his home where he has some difficulty taking care of himself, with the help of family, Adult Protective Services and home health care. Patient also applying for Medicaid and insurance because he has some funds at home and as per social work msw he makes 1900/month he has difficulty obtaining [employer] coverage from insurance companies. Patient understands that if retirement will not take him today he will go home as he cannot live in the hospital besides its high risk for nosocomial infection I explained for the patient this plan and he verbalized understanding and acceptance in the presence of Jacobo the corrections caseworker. Other than that he remains on broad-spectrum antibiotics and he is followed closely by Dr. Liang. Also he is on home dose of Eliquis and aspirin Objective - Vital Signs Vital signs: Vital Signs Temp 97.5 F L 08/24/23 07:10 Pulse 54 L 08/24/23 07:10 Resp 15 08/24/23 07:10 BP 138/76 08/24/23 07:10 Pulse Ox 93 L 08/24/23 09:03 FiO2 Intake & Output 08/23/23 08/24/23 08/24/23 18:59 06:59 18:59 Intake Total 0 Output Total 450 352 Balance -450 -352 Weight 95 kg 92 kg Intake: Oral 0 Output: Urine 450 352 Other: Voiding Method External Catheter External Catheter External Catheter # Bowel Movements 1 - Exam GENERAL: The patient is alert and oriented x3, not in any acute distress. Well developed, well nourished. HEENT: Pupils are round and equally reacting to light. EOMI. No scleral icterus. No conjunctival pallor. Normocephalic, atraumatic. No pharyngeal erythema. No thyromegaly. CARDIOVASCULAR: S1 and S2 present. No murmurs, rubs, or gallops. PULMONARY: Chest is clear to auscultation, no wheezing , no crackles. ABDOMEN: Soft, nontender, nondistended, normoactive bowel sounds. No palpable organomegaly. MUSCULOSKELETAL: No joint swelling or deformity. -EXTREMITIES: No cyanosis, clubbing, or pedal edema. Left heel pressure ulcer with a dressing in place NEUROLOGICAL: Gross neurological examination did not reveal any focal deficits. SKIN: No rashes. no petechiae. - Labs CBC & Chem 7: 08/15/23 06:27 08/16/23 09:24 Labs: Abnormal Lab Results - Last 24 Hours (Table) 08/23/23 08/23/23 Range/Units 17:03 20:02 POC Glucose (mg/dL) 113 H 132 H (70-110) mg/dL Assessment and Plan Assessment: Left heel unstageable diabetic foot ulcer with surrounding cellulitis. Currently on antibiotic course with ceftriaxone 2 g every 12 at home from recent discharge on 08/11/2023.surgery team evaluated for possible debridement UTI, acute cute on chronic CHF with systolic dysfunction ejection fraction 30 to 35% Uncontrolled hypertension Elevated troponin level likely type II MD CKD stage IV with baseline creatinine 1.8-2 Persistent atrial fibrillation status post ALEXIA and cardioversion on 08/09/2023 Generalized weakness and fatigue and unable to ambulate get out of bed. Coronary artery with history of CABG and stent placement Diabetes type 2 insulin-dependent Hypothyroidism Hyperlipidemia Prior history of smoking DVT prophylaxis patient is already on Eliquis Diabetic peripheral neuropathy Iron deficiency anemia Plan: Continue with antibiotic as per ID team, currently on ceftriaxone, fluconazole and Flagyl Patient also on Eliquis 5 mg and aspirin Infectious disease consult Vascular surgery disease consult fiber artist evaluated the patien and signed off the case Lower Levemir to 10 units with close glucose monitoring Continue with Coreg but may hold amiodarone. Discussed with cardiology and defer further management to them Labs and medication were reviewed.. Continue same treatment. Continue with symptomatic treatment. Resume home medication. Monitor labs and vitals. DVT and GI prophylaxis. Further recommendations as per clinical course of the patient DVT prophylaxis: Subcutaneous heparin GI Prophylaxis: Pepcid PT/OT: P subacute rehab, needs 14/09 care Prognosis is guarded
[2023-08-24 11:36] LABS: Glucose,Whole Blood 91 mg/dL (70-110)
[2023-08-24 17:11] LABS: Glucose,Whole Blood 78 mg/dL (70-110)
[2023-08-24 20:12] LABS: Glucose,Whole Blood 62 mg/dL (70-110)
[2023-08-24 21:52] LABS: Glucose,Whole Blood 103 mg/dL (70-110)
[2023-08-25 05:23] LABS: Glucose,Whole Blood 65 mg/dL (70-110)
[2023-08-25] MEDS: DEXTROSE 50% SYRINGE 50 ML IVP PRN (05:39)
[2023-08-25 08:11] LABS: Glucose,Whole Blood 122 mg/dL (70-110)
[2023-08-25 12:04] LABS: Glucose,Whole Blood 158 mg/dL (70-110)
[2023-08-25 14:03] VITALS: BMI 31.2
[2023-08-25 14:24] VITALS: BP 143/71; PULSE 59; RESP 18; TEMP 97.7
--- NOTE | 2023-08-25 15:57 | P.PN ---
Subjective Progress Note Date: 08/24/23 Principal diagnosis: Reason for follow-up is infected left heel pressure ulcer Patient is a 67-year-old male with a past medical history negative for hypertension hyperlipidemia diabetes mellitus history of left heel infected pressure ulcer status post debridement with a recent culture positive for Proteus Christina and staph epi patient did get a PICC line and was discharged home on IV Rocephin, subsequently brought back to the hospital by EMS and the patient was admitted to take care of himself and get his medication. On today's evaluation that is 08/24/2023, Patient is afebrile this morning and denies any chills, patient mention breathing comfortably and is currently on room air, patient denies any chest pain occasional cough patient denies any abdominal pain no diarrhea did have some nausea and mention decreased appetite but no pain to the left heel area Patient did have lab draw today Objective - Vital Signs Vital signs: Vital Signs Temp 97.4 F L 08/24/23 14:53 Pulse 53 L 08/24/23 14:53 Resp 16 08/24/23 14:53 BP 140/72 08/24/23 14:53 Pulse Ox 96 08/24/23 14:53 FiO2 Intake & Output 08/23/23 08/24/23 08/24/23 18:59 06:59 18:59 Intake Total 0 Output Total 450 352 350 Balance -450 -352 -350 Weight 95 kg 92 kg Intake: Oral 0 Output: Urine 450 352 350 Other: Voiding Method External Catheter External Catheter External Catheter # Bowel Movements 1 1 - Exam GENERAL DESCRIPTION: An elderly male lying in bed in no distress RESPIRATORY SYSTEM: Unlabored breathing , decreased breath sounds at bases HEART: S1 S2 regular rate and rhythm , ABDOMEN: Soft , no tenderness EXTREMITIES: Left heel wound is currently dressed - Labs CBC & Chem 7: 08/15/23 06:27 08/16/23 09:24 Labs: Abnormal Lab Results - Last 24 Hours (Table) 08/23/23 08/23/23 Range/Units 17:03 20:02 POC Glucose (mg/dL) 113 H 132 H (70-110) mg/dL Assessment and Plan (1) Pressure ulcer of left heel, stage 3 Current Visit: Yes Status: Acute Code(s): L89.623 - PRESSURE ULCER OF LEFT HEEL, STAGE 3 SNOMED Code(s): 08363944125526 (2) Cellulitis of left foot Current Visit: No Status: Acute Code(s): L03.116 - CELLULITIS OF LEFT LOWER LIMB SNOMED Code(s): 81593945313543227 (3) Leukocytosis Current Visit: Yes Status: Acute Code(s): D72.829 - ELEVATED WHITE BLOOD CELL COUNT, UNSPECIFIED SNOMED Code(s): 826031050 Plan: 1patient with a left heel infected pressure ulcer with the last culture positive for Proteus Christina and staph epi and the patient has been advised Rocephin 2 g daily sent home as he has no jail days left hand the patient was unable to take care of himself at home subsequent has been brought back to the hospital not running any fever white count has been normal left heel did have slough tissue minimal surrounding redness 2patient to continue local wound care with Santyl for left heel wound followed by moist dressing change daily keep the area of the pressure, vascular surgery evaluated the patient and recommend to continue with local treatment with the Santyl and not recommending any further debridement 3patient to continue with Rocephin 2 g daily along with oral Flagyl while inpatient Dictation was produced using [employer] dictation software. please excuse any grammatical, word or spelling errors. Time with Patient: Less than 30
--- NOTE | 2023-08-25 15:58 | P.PN ---
Subjective Progress Note Date: 08/25/23 Principal diagnosis: Reason for follow-up is infected left heel pressure ulcer Patient is a 67-year-old male with a past medical history negative for hypertension hyperlipidemia diabetes mellitus history of left heel infected pressure ulcer status post debridement with a recent culture positive for Proteus Christina and staph epi patient did get a PICC line and was discharged home on IV Rocephin, subsequently brought back to the hospital by EMS and the patient was admitted to take care of himself and get his medication. On today's evaluation that is 08/25/2023,the patient denies any fever or any chills, patient is breathing comfortably on room air, the patient denies chest pain shortness of breath and no significant cough, patient denies abdominal pain, nausea but no vomiting and no pain to the left heel area. No new lab has been obtained today Objective - Vital Signs Vital signs: Vital Signs Temp 97.8 F 08/25/23 07:00 Pulse 62 08/25/23 07:00 Resp 15 08/25/23 07:00 BP 118/70 08/25/23 07:00 Pulse Ox 95 08/25/23 08:53 FiO2 Intake & Output 08/24/23 08/25/23 08/25/23 18:59 06:59 18:59 Intake Total 236 Output Total 350 700 Balance -350 -700 236 Weight 92 kg 96 kg Intake: Oral 236 Output: Urine 350 700 Other: Voiding Method External Catheter External Catheter External Catheter # Bowel Movements 1 1 - Exam GENERAL DESCRIPTION: An elderly male lying in bed in no distress RESPIRATORY SYSTEM: Unlabored breathing , decreased breath sounds at bases HEART: S1 S2 regular rate and rhythm , ABDOMEN: Soft , no tenderness EXTREMITIES: Left heel wound has shown clinical improvement with less necrotic tissue less slough tissue minimal surrounding redness - Labs CBC & Chem 7: 08/15/23 06:27 08/16/23 09:24 Labs: Abnormal Lab Results - Last 24 Hours (Table) 08/24/23 08/25/23 08/25/23 Range/Units 20:09 05:22 08:10 POC Glucose (mg/dL) 62 L 65 L 122 H (70-110) mg/dL 08/25/23 Range/Units 12:03 POC Glucose (mg/dL) 158 H (70-110) mg/dL Assessment and Plan (1) Pressure ulcer of left heel, stage 3 Current Visit: Yes Status: Acute Code(s): L89.623 - PRESSURE ULCER OF LEFT HEEL, STAGE 3 SNOMED Code(s): 64387974599372 (2) Cellulitis of left foot Current Visit: No Status: Acute Code(s): L03.116 - CELLULITIS OF LEFT LOWER LIMB SNOMED Code(s): 72142776757199366 (3) Leukocytosis Current Visit: Yes Status: Acute Code(s): D72.829 - ELEVATED WHITE BLOOD CELL COUNT, UNSPECIFIED SNOMED Code(s): 426995842 Plan: 1patient with a left heel infected pressure ulcer with the last culture positive for Proteus Christina and staph epi and the patient has been advised R ocephin 2 g daily sent home as he has no half-way days left hand the patient was unable to take care of himself at home subsequent has been brought back to the hospital not running any fever white count has been normal left heel did have slough tissue minimal surrounding redness 2patient to continue local wound care with Santyl for left heel wound followed by moist dressing change daily keep the area of the pressure, vascular surgery evaluated the patient and recommend to continue with local treatment with the Santyl and not recommending any further debridement 3patient has received adequate IV Rocephin 2 g daily and Flagyl during this as well as previous admission as the patient was not able to do IV antibiotic at home and admitted he was unable to place the patient because of insurance reason we will recommend to discontinue PICC line on discharge and will give a 2-week course of oral Ceftin and Flagyl this has been discussed with admitting physician Dictation was produced using [employer] dictation software. please excuse any grammatical, word or spelling errors. Time with Patient: Less than 30
--- NOTE | 2023-08-26 06:50 | P.DS ---
Providers Date of admission: 08/12/23 14:53 Attending physician: Patrick Euceda Consults: 08/13/23 12:14 Consult Physician Routine Consulting Provider: Azeem Liang Consult Reason/Comments: Infected L heel ulcer Do you want consulting provider notified?: Yes 08/15/23 22:42 Consult Physician Routine Consulting Provider: Luis Alberto Galindo Consult Reason/Comments: left heel wound , debridemnt and deep cultures Do you want consulting provider notified?: Yes Primary care physician: Gregorio Palomino Hospital Course: Diagnoses: Left heel unstageable diabetic foot ulcer with surrounding cellulitis. was on antibiotic course with ceftriaxone 2 g every 12 at home from recent discharge on 08/11/2023.patient will be discharged on oral antibiotic UTI, acute. Resolved cute on chronic CHF with systolic dysfunction ejection fraction 30 to 35%. Resolved Uncontrolled hypertension. Improved Elevated troponin level likely type II NM CKD stage IV with baseline creatinine 1.8-2 Persistent atrial fibrillation status post ALEXIA and cardioversion on 08/09/2023 Generalized weakness and fatigue and unable to ambulate get out of bed. Coronary artery with history of CABG and stent placement Diabetes type 2 insulin-dependent Hypothyroidism Hyperlipidemia Prior history of smoking DVT prophylaxis patient is already on Eliquis Diabetic peripheral neuropathy Iron deficiency anemia Hospital course: 67-year-old male patient, history of coronary artery disease status post PCI as well as CABG, cardiomyopathy, hypertension, hyperlipidemia, persistent atrial fibrillation, diabetes mellitus type 2, chronic kidney disease stage III, recent hospitalization earlier in July for which she was treated for diabetic foot ulcer/cellulitis of the left foot discharged home on IV antibiotics, seen by cardiology during that hospitalization for atrial fibrillation and underwent ALEXIA and cardioversion on 08/08. Patient presented to the emergency center due to inability to care for himself at home. He has been urinating and defecating on himself. EMS found him to be hypoxic. Patient denies having any shortness of breath, no chest pain, no dizziness, no palpitations. No PND. He has occasional cough. No fever. No blood in his urine or stools. He denies any syncopal episodes. He denies history of being told he had CHF. He has lower extremity edema that comes and goes. He states he has not walked in 1 to 2 w eeks. He denies any increased shortness of breath with activity nor at rest. Patient is seen today in the emergency center waiting for bed on the cardiac stepdown unit. Blood pressure 163/65, heart rate 56, pulse ox 98% on room air. Patient is afebrile. Patient has been started on IV Lasix 40 mg daily. Patient has been evaluated by several consultants including classroom assistant, infectious disease and vascular surgeon Dr. Galindo. Also urologist. Patient was treated with broad-spectrum antibiotics ceftriaxone, fluconazole and Flagyl. Patient remains clinically stable and problems were improving and is stable. Over the last few days and weeks patient has been evaluated by social worker masters and pillowcase folder to find him a place to reside. However patient has been used all his days for rehab besides he has some financial no hospital bed to some of the rehabs. Patient also has properties and as per pillowcase folder he has 1900/month income therefore he is not eligible for insurance and has difficulty placement. Last time patient was discharged came to the same day back to the hospital because he could not take care of himself. Medical staff tried to help him find a place. Last Wednesday we were about to discharge him then the pillowcase folder 10-year told me there might be a skilled nursing will consider taking him pending his Medicaid application. Yesterday the same skilled nursing called the patient he did not cooperate with them and they rejected his application. We kept the patient for another 24 hours till today to give him a chance to make his arrangements so 2 point all the means and resources and people who can help about when he can go home. We contacted his brother who is going to help but not available all the time, also will send home health care as well as per my discussion with social worker masters adult protective service has been contacted with the patient Mr. Ramirez also himself states that he does not want to live in the hospital and he agrees to be discharged to his place today. He states that he has a wheelchair and there are some people might help him, he mention he would have difficulty with cleaning his trash or waste but he will try to manage it. Patient agrees to leave the hospital today. He is fully awake and oriented, he denies chest pain no abdominal pain. No vomiting and he tolerates diet. No diarrhea. No urinary complaints. No headache dizziness weakness or numbness. No fever or chills. Patient was cleared for discharge by all consultants including infectious disease team, surgery team and classroom assistant Patient will be discharged on antibiotic per ID team who sent prescription to the pharmacy. Problems and management plan were discussed with the patient and he verbalized understanding and acceptance Patient was found stable and can be discharged home in guarded prognosis however he needs follow-up as an outpatient. Patient was instructed to follow up with PCP Dr. Palomino and infectious disease Dr. Liang within one week and patient agre es Patient was instructed to follow-up with Dr. Galindo and/or wound clinic in 1 week after discharge and he agrees although he states he has difficulty with transportation Physical exam Gen: patient is a AAOx3, no distress CVS: S1-S2, RRR, no murmur Lungs: B/L CTA, no wheezing Abdomen: soft, no distention, no tenderness, positive bowel sounds -Extremity: no leg edema or induration. Pressure heel ulcer, healing Time spent more than 35 minutes Patient Condition at Discharge: Stable Plan - Discharge Summary Discharge Rx Participant: No New Discharge Prescriptions: New carvediloL [Coreg] 6.25 mg PO BID 30 Days #60 tablet Insulin Detemir (Levemir) [Levemir] 8 unit SQ HS #10 gm amLODIPine [Norvasc] 10 mg PO DAILY #30 tab cefUROXime axetiL [Ceftin] 500 mg PO BID #28 tab metroNIDAZOLE [Flagyl] 500 mg PO TID #42 tab Dapagliflozin Propanediol [Farxiga] 10 mg PO DAILY #30 tab Isosorbide Mononitrate ER [Imdur] 30 mg PO DAILY #30 tab Continue Hydroxychloroquine Sulfate [Plaquenil] 200 mg PO BID Loratadine [Claritin] 10 mg PO DAILY Apixaban [Eliquis] 5 mg PO BID #60 tab Atorvastatin [Lipitor] 10 mg PO HS Ondansetron [Zofran] 4 mg PO TID PRN PRN Reason: Nausea Aspirin 81 mg PO DAILY #30 tab Losartan [Cozaar] 50 mg PO BID #60 tab Famotidine [Pepcid] 20 mg PO BID 30 Days #60 tablet Ferrous Sulfate [Iron (65 MG Elemental)] 325 mg PO DAILY Levothyroxine Sodium [Synthroid] 100 mcg PO DAILY@0600 Meclizine [Antivert] 12.5 mg PO TID PRN 30 Days #90 tablet PRN Reason: Vertigo Balsalazide Disodium [Colazal] 2,250 mg PO BID Insulin Lispro See Protocol SQ TID-W/MEALS Melatonin 10 mg PO HS hydrALAZINE HCL [Apresoline] 50 mg PO TID #90 tab Amiodarone [Cordarone] 200 mg PO DAILY #30 tab Torsemide [Demadex] 10 mg PO DAILY 30 Days #15 tab Acetaminophen Tab [Tylenol] 650 mg PO Q6HR PRN tab PRN Reason: Mild Pain Or Fever > 100.5 Insulin Glargine-Yfgn [Semglee (Yfgn) Pen] 15 unit SQ HS #0 Gabapentin [Neurontin] 100 mg PO Q8H Changed HYDROcodone/APAP 5-325MG [[place] 5-325] 1 tab PO HS PRN 5 Days #5 tab PRN Reason: Pain Discontinued carvediloL [Coreg*] 25 mg PO BID-W/MEALS 30 Days #120 tab Gabapentin [Neurontin] 100 mg PO Q8HR #6 cap cefTRIAXone [Rocephin] 2 gm IVPB Q24HR each Discharge Medication List Ferrous Sulfate [Iron (65 MG Elemental)] 325 mg PO DAILY 03/04/21 [History] Hydroxychloroquine Sulfate [Plaquenil] 200 mg PO BID 03/04/21 [History] Levothyroxine Sodium [Synthroid] 100 mcg PO DAILY@0600 03/04/21 [History] Meclizine [Antivert] 12.5 mg PO TID PRN 30 Days #90 tablet 03/13/21 [Rx] Balsalazide Disodium [Colazal] 2,250 mg PO BID 03/17/23 [History] Loratadine [Claritin] 10 mg PO DAILY 03/17/23 [History] Apixaban [Eliquis] 5 mg PO BID #60 tab 06/11/23 [Rx] Atorvastatin [Lipitor] 10 mg PO HS 08/01/23 [History] Insulin Lispro See Protocol SQ TID-W/MEALS 08/01/23 [History] Melatonin 10 mg PO HS 08/01/23 [History] Ondansetron [Zofran] 4 mg PO TID PRN 08/01/23 [History] Acetaminophen Tab [Tylenol] 650 mg PO Q6HR PRN tab 08/11/23 [Rx] Amiodarone [Cordarone] 200 mg PO DAILY #30 tab 08/11/23 [Rx] Aspirin 81 mg PO DAILY #30 tab 08/11/23 [Rx] Insulin Glargine-Yfgn [Semglee (Yfgn) Pen] 15 unit SQ HS #0 08/11/23 [Rx] Losartan [Cozaar] 50 mg PO BID #60 tab 08/11/23 [Rx] Torsemide [Demadex] 10 mg PO DAILY 30 Days #15 tab 08/11/23 [Rx] hydrALAZINE HCL [Apresoline] 50 mg PO TID #90 tab 08/11/23 [Rx] Gabapentin [Neurontin] 100 mg PO Q8H 08/12/23 [History] Dapagliflozin Propanediol [Farxiga] 10 mg PO DAILY #30 tab 08/25/23 [Rx] Famotidine [Pepcid] 20 mg PO BID 30 Days #60 tablet 08/25/23 [Rx] HYDROcodone/APAP 5-325MG [[place] 5-325] 1 tab PO HS PRN 5 Days #5 tab 08/25/23 [Rx] Insulin Detemir (Levemir) [Levemir] 8 unit SQ HS #10 gm 08/25/23 [Rx] Isosorbide Mononitrate ER [Imdur] 30 mg PO DAILY #30 tab 08/25/23 [Rx] amLODIPine [Norvasc] 10 mg PO DAILY #30 tab 08/25/23 [Rx] carvediloL [Coreg] 6.25 mg PO BID 30 Days #60 tablet 08/25/23 [Rx] cefUROXime axetiL [Ceftin] 500 mg PO BID #28 tab 08/25/23 [Rx] metroNIDAZOLE [Flagyl] 500 mg PO TID #42 tab 08/25/23 [Rx] Follow up Appointment(s)/Referral(s): Gregorio Palomino MD [Primary Care Provider] - 1-2 days Residential Home,Health [NON-STAFF] - 1 Week Luis Alberto Galindo MD [STAFF PHYSICIAN] - 1 Week Azeem Liang MD [STAFF PHYSICIAN] - 1 Week Activity/Diet/Wound Care/Special Instructions: Yousuf Doreen [facility] P: [phone] Patient requires a bedside commode because they are room confined due to CHF and severe weakness, inability to ambulate. Discharge/Stand Alone Forms: Who Do I Call?, Adult Foster [facility] List, Assisted Living Facilities, Help In The Home Discharge Disposition: HOME WITH HOME HEALTH SERVICES
== END 2023-08-25 16:15 | disposition home health service (06) | DRG 280 ==
LOC: EC 11:51 → 3SCARD 14:52 → OBSVTOIN 14:53 → 3SCARD 15:51 → 6NMEDSUR 08-20 02:32
PROVIDERS: ADMIT Internal Medicine; ATTEND Internal Medicine
DX: I13.0 Hypertensive heart and chronic kidney disease with heart failure and stage 1 through stage 4 chronic kidney disease, or unspecified chronic kidney disease (principal); I50.23 Acute on chronic systolic (congestive) heart failure; I21.A1 Myocardial infarction type 2; L89.623 Pressure ulcer of left heel, stage 3; N18.4 Chronic kidney disease, stage 4 (severe); N39.0 Urinary tract infection, site not specified; L03.116 Cellulitis of left lower limb; E44.0 Moderate protein-calorie malnutrition; I48.19 Other persistent atrial fibrillation; Z79.4 Long term (current) use of insulin; R09.02 Hypoxemia; E11.22 Type 2 diabetes mellitus with diabetic chronic kidney disease; Z68.31 Body mass index [BMI] 31.0-31.9, adult; E11.621 Type 2 diabetes mellitus with foot ulcer; E11.42 Type 2 diabetes mellitus with diabetic polyneuropathy; Z89.412 Acquired absence of left great toe; Z89.422 Acquired absence of other left toe(s); E66.9 Obesity, unspecified; E03.9 Hypothyroidism, unspecified; D50.9 Iron deficiency anemia, unspecified; B95.62 Methicillin resistant Staphylococcus aureus infection as the cause of diseases classified elsewhere; R53.81 Other malaise; E11.628 Type 2 diabetes mellitus with other skin complications; L89.152 Pressure ulcer of sacral region, stage 2; I45.9 Conduction disorder, unspecified; I25.5 Ischemic cardiomyopathy; I25.2 Old myocardial infarction; I44.0 Atrioventricular block, first degree; R00.1 Bradycardia, unspecified; R19.7 Diarrhea, unspecified; I25.10 Atherosclerotic heart disease of native coronary artery without angina pectoris; E78.5 Hyperlipidemia, unspecified; Z95.5 Presence of coronary angioplasty implant and graft; Z95.1 Presence of aortocoronary bypass graft; Z88.0 Allergy status to penicillin; Z79.899 Other long term (current) drug therapy; Z79.890 Hormone replacement therapy; Z79.84 Long term (current) use of oral hypoglycemic drugs; Z79.82 Long term (current) use of aspirin; Z79.01 Long term (current) use of anticoagulants; Z87.891 Personal history of nicotine dependence
CPT/HCPCS: 36415; 71046; 80048; 80053; 81001; 83605; 83735; 83880; 84484; 85025; 87324; 87493; 93005; 94760; 96365; 96375; 96376; 99285

== ENCOUNTER 2023-08-26 18:27 | Inpatient (IN) | payer MEDICARE ==
--- NOTE | 2023-08-26 19:34 | ED ---
Weakness HPI - General Chief complaint: Weakness Stated complaint: Weakness Time Seen by Provider: 08/26/23 18:31 Source: patient, EMS Mode of arrival: EMS Limitations: no limitations - History of Present Illness Initial comments: This patient is a 67-year-old man who is here to have evaluation of generalized weakness. The patient had been in the hospital for similar complaint, had been worked up and was discharged home. The patient's visiting nurse saw him today and wanted him to go back to emergency because he was too weak to assist in transferring to the wheelchair. The patient cannot get out of his chair. He was not able to get up to go to the bathroom or to get himself any food from the kitchen. Patient does live in his own home with no one else there with him. He denies having fevers or chills. He has had a little bit of cough, but states it is unchanged from leaving the hospital. He denies pain other than stating that he has rash on his buttocks that is causing some burning discomfort. MD Complaint: generalized weakness - Related Data Home Medications Medication Instructions Recorded Confirmed Ferrous Sulfate [Iron (65 MG 325 mg PO DAILY 03/04/21 08/26/23 Elemental)] Hydroxychloroquine Sulfate 200 mg PO BID 03/04/21 08/26/23 [Plaquenil] Levothyroxine Sodium [Synthroid] 100 mcg PO DAILY@0600 03/04/21 08/26/23 Balsalazide Disodium [Colazal] 2,250 mg PO BID 03/17/23 08/26/23 Loratadine [Claritin] 10 mg PO DAILY 03/17/23 08/26/23 Atorvastatin [Lipitor] 10 mg PO HS 08/01/23 08/26/23 Insulin Lispro See Protocol SQ TID-W/MEALS 08/01/23 08/26/23 Melatonin 10 mg PO HS 08/01/23 08/26/23 Ondansetron [Zofran] 4 mg PO TID PRN 08/01/23 08/26/23 Previous Rx's Medication Instructions Recorded Meclizine [Antivert] 12.5 mg PO TID PRN 30 Days #90 03/13/21 tablet Apixaban [Eliquis] 5 mg PO BID #60 tab 06/11/23 Acetaminophen Tab [Tylenol] 650 mg PO Q6HR PRN tab 08/11/23 Amiodarone [Cordarone] 200 mg PO DAILY #30 tab 08/11/23 Aspirin 81 mg PO DAILY #30 tab 08/11/23 hydrALAZINE HCL [Apresoline] 50 mg PO TID #90 tab 08/11/23 Dapagliflozin Propanediol [Farxiga] 10 mg PO DAILY #30 tab 08/25/23 Famotidine [Pepcid] 20 mg PO BID 30 Days #60 tablet 08/25/23 Isosorbide Mononitrate ER [Imdur] 30 mg PO DAILY #30 tab 08/25/23 amLODIPine [Norvasc] 10 mg PO DAILY #30 tab 08/25/23 carvediloL [Coreg] 6.25 mg PO BID 30 Days #60 tablet 08/25/23 Citalopram Hydrobromide [CeleXA] 10 mg PO DAILY tab 09/09/23 HYDROcodone/APAP 5-325MG [[place] 1 each PO Q6HR PRN #4 tab 09/09/23 5-325] cefUROXime axetiL [Ceftin] 500 mg PO BID 10 Days #20 tab 09/09/23 Allergies Allergy/AdvReac Type Severity Reaction Status Date / Time Penicillins Allergy Unknown Verified 08/26/23 19:51 Childhood Review of Systems ROS Statement: Those systems with pertinent positive or pertinent negative responses have been documented in the HPI. ROS Other: All systems not noted in ROS Statement are negative. Past Medical History Past Medical History: Diabetes Mellitus, Hyperlipidemia, Hypertension, Thyroid Disorder History of Any Multi-Drug Resistant Organisms: None Reported Date of last positivie culture/infection: 04/21/23 MDRO Source:: Left Foot Past Surgical History: Coronary Bypass/CABG, Heart Catheterization With Stent Additional Past Surgical History / Comment(s): left great and second toe removal. bilat carpal tunnel. neck fusion 5-6-7. triple bypass Past Anesthesia/Blood Transfusion Reactions: No Reported Reaction Additional Past Anesthesia/Blood Transfusion Reaction / Comment(s): no blood transfusion Date of Last Stent Placement:: 02/2002 Past Psychological History: No Psychological Hx Reported Smoking Status: Former smoker Past Alcohol Use History: None Reported Past Drug Use History: None Reported - Past Family History Father History Unknown: Yes Mother History Unknown: Yes General Exam Limitations: no limitations Course Vital Signs 08/26/23 08/26/23 08/26/23 18:46 20:56 22:00 Temperature 97.0 F L Pulse Rate 65 63 60 Respiratory 18 18 18 Rate Blood Pressure 162/60 166/78 162/86 O2 Sat by Pulse 93 L 95 95 Oximetry 08/26/23 08/27/23 08/27/23 23:00 03:00 06:02 Temperature Pulse Rate 64 58 L 62 Respiratory 18 18 18 Rate Blood Pressure 174/55 187/85 146/81 O2 Sat by Pulse 95 95 96 Oximetry 08/27/23 10:00 Temperature Pulse Rate 68 Respiratory 16 Rate Blood Pressure 128/30 O2 Sat by Pulse 99 Oximetry Medical Decision Making - Medical Decision Making The patient had chest x-ray that I interpreted as showing evidence of mild congestive heart failure. Small pleural effusion. Was pt. sent in by a medical professional or institution (, PA, SESSIONS CLERK, urgent care, hospital, or care home...) When possible be specific @ -[No] Did you speak to anyone other than the patient for history (EMS, parent, family, police, friend...)? What history was obtained from this source @ -[No] Did you review nursing and triage notes (agree or disagree)? Why? @ -[I reviewed and agree with nursing and triage notes] Were old charts reviewed (outside hosp., previous admission, EMS record, old EKG, old radiological studies, urgent care reports/EKG's, care home records)? Report findings @ -[No old charts were reviewed] Differential Diagnosis (chest pain, altered mental status, abdominal pain women, abdominal pain men, vaginal bleeding, weakness, fever, dyspnea, syncope, headache, dizziness, GI bleed, back pain, seizure, CVA, palpatations, mental health, musculoskeletal)? @ -[Differential Weakness: Hypoglycemia, shock, sepsis, hyponatremia, anemia, infection, KS, ETOH, adverse medicine reaction, overdose, stroke, this is not meant to be an all-inclusive list. EKG interpreted by me (3pts min.). @ -[I interpreted as above] X-rays interpreted by me (1pt min.). @ -[I interpreted as above CT interpreted by me (1pt min.). @ -[None done] U/S interpreted by me (1pt. min.). @ -[None done] What testing was considered but not performed or refused? (CT, X-rays, U/S, labs)? Why? @ -[None] What meds were considered but not given or refused? Why? @ -[None] Did you discuss the management of the patient with other professionals (professionals i.e. , PA, SESSIONS CLERK, lab, RT, psych nurse, social worker aide, picker/puller, teacher, surface to air weapons officer, employment case manager)? Give summary @ -Case discussed with admitting physician and treatment recommendations incorporated Was smoking cessation discussed for >3mins.? @ -[No] Was critical care preformed (if so, how long)? @ -[No] Were there social determinants of health that impacted care today? How? (Homelessness, low income, unemployed, alcoholism, drug addiction, transportation, low edu. Level, literacy, decrease access to med. care, fdc, rehab)? @ -[No] Was there de-escalation of care discussed even if they declined (Discuss DNR or withdrawal of care, Hospice)? DNR status @ -[No] What co-morbidities impacted this encounter? (DM, HTN, Smoking, COPD, CAD, Cancer, CVA, ARF, Chemo, Hep., AIDS, mental health diagnosis, sleep apnea, morbid obesity)? @ -[Hypertension, atrial fibrillation Was patient admitted / discharged? Hospital course, mention meds given and route, prescriptions, significant lab abnormalities, going to OR and other pertinent info. @ -[Patient is 67-year-old man with multiple medical problems who had been discharged but after he developed nausea was too weak to get around his apartment. The workup here does reveal hypokalemia. The patient is treated but not having much improvement. Undiagnosed new problem with uncertain prognosis? @ -[No] Drug Therapy requiring intensive monitoring for toxicity (Heparin, Nitro, Insulin, Cardizem)? @ -[No] Were any procedures done? @ -[No] Diagnosis/symptom? @ -[Generalized weakness and fatigue Inability to ambulate Nausea, acute Hypokalemia, acute Hypertension, chronic Left heel ulcer, chronic Acute, or Chronic, or Acute on Chronic? @ -[Acute on chronic Uncomplicated (without systemic symptoms) or Complicated (systemic symptoms)? @ -[Uncomplicated Side effects of treatment? @ -[No] Exacerbation, Progression, or Severe Exacerbation? @ -[No] Poses a threat to life or bodily function? How? (Chest pain, [place], KS, pneumonia, PE, COPD, DKA, ARF, appy, cholecystitis, CVA, Diverticulitis, Homicidal, Suicidal, threat to staff... and all critical care pts) @ -[No] - Lab Data Result diagrams: 09/08/23 03:14 09/09/23 06:25 Lab Results 08/26/23 08/26/23 08/26/23 Range/Units 19:32 19:32 19:32 WBC 8.8 (3.8-10.6) k/uL RBC 3.73 L (4.30-5.90) m/uL Hgb 10.2 L (13.0-17.5) gm/dL Hct 33.3 L (39.0-53.0) % MCV 89.4 (80.0-100.0) fL MCH 27.3 (25.0-35.0) pg MCHC 30.5 L (31.0-37.0) g/dL RDW 15.3 (11.5-15.5) % Plt Count 255 (150-450) k/uL MPV 7.5 Neutrophils % 76 % Lymphocytes % 12 % Monocytes % 7 % Eosinophils % 2 % Basophils % 1 % Neutrophils # 6.7 (1.3-7.7) k/uL Lymphocytes # 1.1 (1.0-4.8) k/uL Monocytes # 0.6 (0-1.0) k/uL Eosinophils # 0.2 (0-0.7) k/uL Basophils # 0.1 (0-0.2) k/uL Sodium 139 (137-145) mmol/L Potassium 2.6 L* (3.5-5.1) mmol/L Chloride 101 (98-107) mmol/L Carbon Dioxide 30 (22-30) mmol/L Anion Gap 8 mmol/L BUN 18 (9-20) mg/dL Creatinine 1.51 H (0.66-1.25) mg/dL Est GFR (CKD-EPI)AfAm 55 (>60 ml/min/1.73 sqM) Est GFR (CKD-EPI)NonAf 47 (>60 ml/min/1.73 sqM) Glucose 78 (74-99) mg/dL Plasma Lactic Acid Brigido 1.1 (0.7-2.0) mmol/L Calcium 8.3 L (8.4-10.2) mg/dL Magnesium 1.7 (1.6-2.3) mg/dL Total Bilirubin 0.7 (0.2-1.3) mg/dL AST 30 (17-59) U/L ALT 10 (4-49) U/L Alkaline Phosphatase 71 (38-126) U/L Troponin I (0.000-0.034) ng/mL C-Reactive Protein 1.5 H (<1.0) mg/dL Total Protein 5.5 L (6.3-8.2) g/dL Albumin 3.0 L (3.5-5.0) g/dL Urine Color Urine Appearance (Clear) Urine pH (5.0-8.0) Ur Specific [place] (1.001-1.035) Urine Protein (Negative) Urine Glucose (UA) (Negative) Urine Ketones (Negative) Urine Blood (Negative) Urine Nitrite (Negative) Urine Bilirubin (Negative) Urine Urobilinogen (<2.0) mg/dL Ur Leukocyte Esterase (Negative) Urine RBC (0-5) /hpf Urine WBC (0-5) /hpf Urine WBC Clumps (None) /hpf Ur Squamous Epith Cells (0-4) /hpf Urine Bacteria (None) /hpf Hyaline Casts (0-2) /lpf Urine Yeast (Budding) (None) /hpf Influenza Type A (PCR) (Not Detectd) Influenza Type B (PCR) (Not Detectd) RSV (PCR) (Not Detectd) SARS-CoV-2 (PCR) (Not Detectd) 08/26/23 08/26/23 08/26/23 Range/Units 19:32 19:32 20:54 WBC (3.8-10.6) k/uL RBC (4.30-5.90) m/uL Hgb (13.0-17.5) gm/dL Hct (39.0-53.0) % MCV (80.0-100.0) fL MCH (25.0-35.0) pg MCHC (31.0-37.0) g/dL RDW (11.5-15.5) % Plt Count (150-450) k/uL MPV Neutrophils % % Lymphocytes % % Monocytes % % Eosinophils % % Basophils % % Neutrophils # (1.3-7.7) k/uL Lymphocytes # (1.0-4.8) k/uL Monocytes # (0-1.0) k/uL Eosinophils # (0-0.7) k/uL Basophils # (0-0.2) k/uL Sodium (137-145) mmol/L Potassium (3.5-5.1) mmol/L Chloride (98-107) mmol/L Carbon Dioxide (22-30) mmol/L Anion Gap mmol/L BUN (9-20) mg/dL Creatinine (0.66-1.25) mg/dL Est GFR (CKD-EPI)AfAm (>60 ml/min/1.73 sqM) Est GFR (CKD-EPI)NonAf (>60 ml/min/1.73 sqM) Glucose (74-99) mg/dL Plasma Lactic Acid Brigido (0.7-2.0) mmol/L Calcium (8.4-10.2) mg/dL Magnesium (1.6-2.3) mg/dL Total Bilirubin (0.2-1.3) mg/dL AST (17-59) U/L ALT (4-49) U/L Alkaline Phosphatase (38-126) U/L Troponin I 0.060 H* (0.000-0.034) ng/mL C-Reactive Protein (<1.0) mg/dL Total Protein (6.3-8.2) g/dL Albumin (3.5-5.0) g/dL Urine Color Yellow Urine Appearance Turbid (Clear) Urine pH 6.0 (5.0-8.0) Ur Specific [place] 1.015 (1.001-1.035) Urine Protein 2+ H (Negative) Urine Glucose (UA) 3+ H (Negative) Urine Ketones Trace H (Negative) Urine Blood Small H (Negative) Urine Nitrite Negative (Negative) Urine Bilirubin Negative (Negative) Urine Urobilinogen <2.0 (<2.0) mg/dL Ur Leukocyte Esterase Large H (Negative) Urine RBC 18 H (0-5) /hpf Urine WBC >182 H (0-5) /hpf Urine WBC Clumps Many H (None) /hpf Ur Squamous Epith Cells 1 (0-4) /hpf Urine Bacteria Occasional H (None) /hpf Hyaline Casts 5 H (0-2) /lpf Urine Yeast (Budding) Moderate H (None) /hpf Influenza Type A (PCR) Not Detected (Not Detectd) Influenza Type B (PCR) Not Detected (Not Detectd) RSV (PCR) Not Detected (Not Detectd) SARS-CoV-2 (PCR) Not Detected (Not Detectd) Disposition Clinical Impression: Hypokalemia, Generalized weakness Disposition: ADMITTED IP TO THIS [facility] Condition: Stable Is patient prescribed a controlled substance at d/c from ED?: No
[2023-08-26 19:45] LABS: Basophils # (A) 0.1 k/uL (0-0.2); Basophils % (A) 1 %; Eosinophils # (A) 0.2 k/uL (0-0.7); Eosinophils % (A) 2 %; HCT 33.3 % (39.0-53.0); HGB 10.2 gm/dL (13.0-17.5); Lymphocytes # (A) 1.1 k/uL (1.0-4.8); Lymphocytes % (A) 12 %; MCH 27.3 pg (25.0-35.0); MCHC 30.5 g/dL (31.0-37.0); MCV 89.4 fL (80.0-100.0); Mean Platelet Volume 7.5; Monocytes # (A) 0.6 k/uL (0-1.0); Monocytes % (A) 7 %; Neutrophils # (A) 6.7 k/uL (1.3-7.7); Neutrophils % (A) 76 %; Platelet Count 255 k/uL (150-450); RBC 3.73 m/uL (4.30-5.90); RDW 15.3 % (11.5-15.5); WBC 8.8 k/uL (3.8-10.6)
--- NOTE | 2023-08-26 19:50 | XR ---
EXAMINATION TYPE: XR chest 2V DATE OF EXAM: 08/26/2023 7:40 PM CLINICAL INDICATION:Male, 67 years old with history of cough; [facility] COMPARISON: 08/12/2023 TECHNIQUE: XR chest 2V. Frontal and lateral views of the chest.. FINDINGS: Lines/Tubes/Devices: EKG leads overlie the chest. No indwelling lines are seen. Heart/mediastinum: Heart size stable, moderately enlarged. Stable mediastinum. Multiple sternotomy wires. Pulmonary vascularity: Central vascular congestion, similar to previous. Lungs/Pleura: Similar blunting left costophrenic angle laterally and posteriorly suggesting small to moderate pleural effusion with adjacent atelectasis/airspace disease. Mild right basilar atelectasis/ airspace disease without sizable effusion demonstrated. No visible pneumothorax. Musculoskeletal: Bony thorax appears grossly intact. There is fixation hardware in the lower cervic al spine. Other findings: None. IMPRESSION: Similar findings compared to previous including cardiomegaly with pulmonary vascular congestion, smal l to moderate left pleural effusion, and bibasilar atelectasis/airspace disease. Correlate for CHF. P neumonia not excluded in the proper setting.
[2023-08-26 19:58] LABS: ALT 10 U/L (4-49); AST 30 U/L (17-59); African American GFR (CKD) 55 (>60 ml/min/1.73 sqM); Alkaline Phosphatase 71 U/L (38-126); Anion Gap 8 mmol/L; Blood Urea Nitrogen 18 mg/dL (9-20); C Reactive Protein 1.5 mg/dL (<1.0); Calcium 8.3 mg/dL (8.4-10.2); Carbon Dioxide 30 mmol/L (22-30); Chloride 101 mmol/L (98-107); Glucose 78 mg/dL (74-99); Magnesium 1.7 mg/dL (1.6-2.3); Non-African American GFR(CKD) 47 (>60 ml/min/1.73 sqM); Sodium 139 mmol/L (137-145); Total Bilirubin 0.7 mg/dL (0.2-1.3); Total Protein 5.5 g/dL (6.3-8.2)
[2023-08-26 20:20] LABS: Potassium 2.6 mmol/L (3.5-5.1)
[2023-08-26 21:22] LABS: Appearance,Urine Turbid (Clear); Bacteria,Urine Occasional /hpf; Bilirubin,Urine Negative (Negative); Blood,Urine Small (Negative); Budding Yeast,Urine Moderate /hpf; Color,Urine Yellow; Glucose,Urine (UA) 3+ (Negative); Hyaline Casts,Urine 5 /lpf (0-2); Ketones,Urine Trace (Negative); Leukocyte Esterase,Urine Large (Negative); Nitrite,Urine Negative (Negative); Protein,Urine 2+ (Negative); RBC,Urine 18 /hpf (0-5); Specific Gravity,Urine 1.015 (1.001-1.035); Squamous Epithelial Cell,Urine 1 /hpf (0-4); Urobilinogen,Urine <2.0 mg/dL (<2.0); WBC,Urine >182 /hpf (0-5)
[2023-08-26] MEDS ORDERED: NALOXONE 0.4 MG/ML 1 ML VIAL IV PRN (22:22)
[2023-08-26] MEDS: POTASSIUM CHLORIDE ER 20 MEQ TAB.ER PO STA (22:54)
[2023-08-26] MEDS: HYDROcodone/APAP 5-325MG 1 EACH TAB PO STA (22:55)
[2023-08-26 23:47] LABS: Glucose,Whole Blood 71 mg/dL (70-110)
[2023-08-27 03:46] LABS: Glucose,Whole Blood 81 mg/dL (70-110)
[2023-08-27 07:05] LABS: ALT 9 U/L (4-49); AST 34 U/L (17-59); African American GFR (CKD) 62 (>60 ml/min/1.73 sqM); Albumin 2.9 g/dL (3.5-5.0); Alkaline Phosphatase 70 U/L (38-126); Anion Gap 5 mmol/L; Blood Urea Nitrogen 15 mg/dL (9-20); Calcium 8.3 mg/dL (8.4-10.2); Carbon Dioxide 31 mmol/L (22-30); Chloride 104 mmol/L (98-107); Glucose 81 mg/dL (74-99); Non-African American GFR(CKD) 54 (>60 ml/min/1.73 sqM); Sodium 140 mmol/L (137-145); Total Bilirubin 0.8 mg/dL (0.2-1.3); Total Protein 5.4 g/dL (6.3-8.2)
[2023-08-27 07:12] LABS: Potassium 2.7 mmol/L (3.5-5.1)
[2023-08-27] MEDS ORDERED: Potassium Replacement Protocol 1 EACH MISC MISCELLANE PRN ×2 (07:12→11:10)
[2023-08-27] MEDS: POTASSIUM CHLORIDE ER 20 MEQ TAB.ER PO SCH ×2 (07:53→13:00)
[2023-08-27] MEDS ORDERED: ACETAMINOPHEN TAB 325 MG TAB PO PRN (09:50)
[2023-08-27] MEDS ORDERED: MECLIZINE 12.5 MG TAB PO PRN (09:50)
[2023-08-27] MEDS ORDERED: ONDANSETRON 4 MG TAB PO PRN (09:50)
--- NOTE | 2023-08-27 09:56 | P.HPIM ---
History of Present Illness 67-year-old male patient, history of coronary artery disease status post PCI as well as CABG, cardiomyopathy, hypertension, hyperlipidemia, persistent atrial fibrillation, diabetes mellitus type 2, chronic kidney disease stage III, recent hospitalization earlier in July for which she was treated for diabetic foot ulcer/cellulitis of the left foot discharged home on IV antibiotics, Patient is a known case of generalized weakness, he had ulcers on treatment with antibiotic. This is the third hospitalization with similar complaint He has 2 hospitalizations previously from 07/30 up to 08/10, he was discharged on 10 July and came on the 628 and the second hospitalization went up to 08/24 where he was discharged 2 days ago. Patient had extensive discussion with him during previous admission. He refuses to give up his resources so he can apply for medical insurance so he can go to senior living for rehab or placement. rodent control worker already had extensive efforts with no help. Patient today confirms to me urine is 1900/month but he spends 1700/month on his bills for mortgages on his house as he mentions. However the patient confirms to me he does not want to stay in the hospital and leaving the hospital and he is expected to be treated and discharged However once he goes home he has limited help although his brother, home health care and Adult Protective Services were involved The home health care nurse came yesterday because of weakness after he spent 24 hours in his house found him very weak and sent him back to the hospital Today he is fully awake and oriented, no specific complaint, complains from some pain in his lower back asking for morphine which was given to give him one-time dose. Also he has bilateral heel ulcers more on the left side which looks infected already getting treatment for it Patient states he has been feeling nausea but he did not take his Zofran. He did not vomit in the. Patient hemodynamically stable, afebrile blood pressure on the high side Troponin chronically elevated with no chest pain most likely secondary to his renal disease His creatinine 1.3, baseline is 1.5-2.1 Potassium was severely low 2.7 Review of Systems Review of systems CONSTITUTIONAL: No fever, no malaise, no fatigue. HEENT: No recent visual problems or hearing problems. Denied any sore throat. CARDIOVASCULAR: No orthopnea, PND, no palpitations, no syncope. PULMONARY: No shortness of breath, no cough, no hemoptysis. GASTROINTESTINAL: No diarrhea, no nausea, no vomiting, no abdominal pain. Normoactive bowel sounds. NEUROLOGICAL: No headaches, no weakness, no numbness. HEMATOLOGICAL: Denies any bleeding or petechiae. GENITOURINARY: Denies any burning micturition, frequency, or urgency. MUSCULOSKELETAL/RHEUMATOLOGICAL: Denies any joint pain, swelling, or any muscle pain. ENDOCRINE: Denies any polyuria or polydipsia. Past Medical History Past Medical History: Diabetes Mellitus, Hyperlipidemia, Hypertension, Thyroid Disorder History of Any Multi-Drug Resistant Organisms: None Reported Date of last positivie culture/infection: 04/21/23 MDRO Source:: Left Foot Past Surgical History: Coronary Bypass/CABG, Heart Catheterization With Stent Additional Past Surgical History / Comment(s): left great and second toe removal. bilat carpal tunnel. neck fusion 5-6-7. triple bypass Past Anesthesia/Blood Transfusion Reactions: No Reported Reaction Additional Past Anesthesia/Blood Transfusion Reaction / Comment(s): no blood transfusion Date of Last Stent Placement:: 02/2002 Past Psychological History: No Psychological Hx Reported Smoking Status: Former smoker Past Alcohol Use History: None Reported Additional Past Alcohol Use History / Comment(s): quit smoking at 38 Past Drug Use History: None Reported - Past Family History Father History Unknown: Yes Mother History Unknown: Yes Medications and Allergies Home Medications Medication Instructions Recorded Confirmed Type Ferrous Sulfate [Iron (65 MG 325 mg PO DAILY 03/04/21 08/26/23 History Elemental)] Hydroxychloroquine Sulfate 200 mg PO BID 03/04/21 08/26/23 History [Plaquenil] Levothyroxine Sodium [Synthroid] 100 mcg PO DAILY@0600 03/04/21 08/26/23 History Meclizine [Antivert] 12.5 mg PO TID PRN 30 Days #90 03/13/21 08/26/23 Rx tablet Balsalazide Disodium [Colazal] 2,250 mg PO BID 03/17/23 08/26/23 History Loratadine [Claritin] 10 mg PO DAILY 03/17/23 08/26/23 History Apixaban [Eliquis] 5 mg PO BID #60 tab 06/11/23 08/26/23 Rx Atorvastatin [Lipitor] 10 mg PO HS 08/01/23 08/26/23 History Insulin Lispro See Protocol SQ TID-W/MEALS 08/01/23 08/26/23 History Melatonin 10 mg PO HS 08/01/23 08/26/23 History Ondansetron [Zofran] 4 mg PO TID PRN 08/01/23 08/26/23 History Acetaminophen Tab [Tylenol] 650 mg PO Q6HR PRN tab 08/11/23 08/26/23 Rx Amiodarone [Cordarone] 200 mg PO DAILY #30 tab 08/11/23 08/26/23 Rx Aspirin 81 mg PO DAILY #30 tab 08/11/23 08/26/23 Rx Losartan [Cozaar] 50 mg PO BID #60 tab 08/11/23 08/26/23 Rx Torsemide [Demadex] 10 mg PO DAILY 30 Days #15 tab 08/11/23 08/26/23 Rx hydrALAZINE HCL [Apresoline] 50 mg PO TID #90 tab 08/11/23 08/26/23 Rx Gabapentin [Neurontin] 100 mg PO Q8H 08/12/23 08/26/23 History Dapagliflozin Propanediol [Farxiga] 10 mg PO DAILY #30 tab 08/25/23 08/26/23 Rx Famotidine [Pepcid] 20 mg PO BID 30 Days #60 tablet 08/25/23 08/26/23 Rx HYDROcodone/APAP 5-325MG [[place] 1 tab PO HS PRN 5 Days #5 tab 08/25/23 08/26/23 Rx 5-325] Insulin Detemir (Levemir) [Levemir] 8 unit SQ HS #10 gm 08/25/23 08/26/23 Rx Isosorbide Mononitrate ER [Imdur] 30 mg PO DAILY #30 tab 08/25/23 08/26/23 Rx amLODIPine [Norvasc] 10 mg PO DAILY #30 tab 08/25/23 08/26/23 Rx carvediloL [Coreg] 6.25 mg PO BID 30 Days #60 tablet 08/25/23 08/26/23 Rx cefUROXime axetiL [Ceftin] 500 mg PO BID #28 tab 08/25/23 08/26/23 Rx metroNIDAZOLE [Flagyl] 500 mg PO TID #42 tab 08/25/23 08/26/23 Rx Allergies Allergy/AdvReac Type Severity Reaction Status Date / Time Penicillins Allergy Unknown Verified 08/26/23 19:51 Childhood Physical Exam Vitals: Vital Signs Temp Pulse Resp BP Pulse Ox 08/27/23 06:02 62 18 146/81 96 08/27/23 03:00 58 L 18 187/85 95 08/26/23 23:00 64 18 174/55 95 08/26/23 22:00 60 18 162/86 95 08/26/23 20:56 63 18 166/78 95 08/26/23 18:46 97.0 F L 65 18 162/60 93 L Intake and Output 08/26/23 08/27/23 08/27/23 22:59 06:59 14:59 Output Total 220 Balance -220 Output: Urine 220 Straight 220 Other: Weight 90.718 kg 90.718 kg -GENERAL: The patient is alert and oriented x3, not in any acute distress. Well developed, well nourished. Generalized weakness HEENT: Pupils are round and equally reacting to light. EOMI. No scleral icterus. No conjunctival pallor. Normocephalic, atraumatic. No pharyngeal erythema. No thyromegaly. CARDIOVASCULAR: S1 and S2 present. No murmurs, rubs, or gallops. PULMONARY: Chest is clear to auscultation, no wheezing , no crackles. ABDOMEN: Soft, nontender, nondistended, normoactive bowel sounds. No palpable organomegaly. MUSCULOSKELETAL: No joint swelling or deformity. -EXTREMITIES: No cyanosis, clubbing, or pedal edema. Left heel ulcer with dr joyce in place, does extend he has right heel ulcer NEUROLOGICAL: Gross neurological examination did not reveal any focal deficits. SKIN: No rashes. no petechiae. Results CBC & Chem 7: 08/26/23 19:32 08/27/23 06:29 Labs: Abnormal Lab Results - Last 24 Hours (Table) 08/26/23 08/26/23 08/26/23 Range/Units 19:32 19:32 19:32 RBC 3.73 L (4.30-5.90) m/uL Hgb 10.2 L (13.0-17.5) gm/dL Hct 33.3 L (39.0-53.0) % MCHC 30.5 L (31.0-37.0) g/dL Potassium 2.6 L* (3.5-5.1) mmol/L Carbon Dioxide (22-30) mmol/L Creatinine 1.51 H (0.66-1.25) mg/dL Calcium 8.3 L (8.4-10.2) mg/dL Troponin I 0.060 H* (0.000-0.034) ng/mL C-Reactive Protein 1.5 H (<1.0) mg/dL Total Protein 5.5 L (6.3-8.2) g/dL Albumin 3.0 L (3.5-5.0) g/dL Urine Protein (Negative) Urine Glucose (UA) (Negative) Urine Ketones (Negative) Urine Blood (Negative) Ur Leukocyte Esterase (Negative) Urine RBC (0-5) /hpf Urine WBC (0-5) /hpf Urine WBC Clumps (None) /hpf Urine Bacteria (None) /hpf Hyaline Casts (0-2) /lpf Urine Yeast (Budding) (None) /hpf 08/26/23 08/27/23 08/27/23 Range/Units 20:54 00:05 04:50 RBC (4.30-5.90) m/uL Hgb (13.0-17.5) gm/dL Hct (39.0-53.0) % MCHC (31.0-37.0) g/dL Potassium (3.5-5.1) mmol/L Carbon Dioxide (22-30) mmol/L Creatinine (0.66-1.25) mg/dL Calcium (8.4-10.2) mg/dL Troponin I 0.063 H* 0.054 H* (0.000-0.034) ng/mL C-Reactive Protein (<1.0) mg/dL Total Protein (6.3-8.2) g/dL Albumin (3.5-5.0) g/dL Urine Protein 2+ H (Negative) Urine Glucose (UA) 3+ H (Negative) Urine Ketones Trace H (Negative) Urine Blood Small H (Negative) Ur Leukocyte Esterase Large H (Negative) Urine RBC 18 H (0-5) /hpf Urine WBC >182 H (0-5) /hpf Urine WBC Clumps Many H (None) /hpf Urine Bacteria Occasional H (None) /hpf Hyaline Casts 5 H (0-2) /lpf Urine Yeast (Budding) Moderate H (None) /hpf 08/27/23 Range/Units 06:29 RBC (4.30-5.90) m/uL Hgb (13.0-17.5) gm/dL Hct (39.0-53.0) % MCHC (31.0-37.0) g/dL Potassium 2.7 L* (3.5-5.1) mmol/L Carbon Dioxide 31 H (22-30) mmol/L Creatinine 1.35 H (0.66-1.25) mg/dL Calcium 8.3 L (8.4-10.2) mg/dL Troponin I (0.000-0.034) ng/mL C-Reactive Protein (<1.0) mg/dL Total Protein 5.4 L (6.3-8.2) g/dL Albumin 2.9 L (3.5-5.0) g/dL Urine Protein (Negative) Urine Glucose (UA) (Negative) Urine Ketones (Negative) Urine Blood (Negative) Ur Leukocyte Esterase (Negative) Urine RBC (0-5) /hpf Urine WBC (0-5) /hpf Urine WBC Clumps (None) /hpf Urine Bacteria (None) /hpf Hyaline Casts (0-2) /lpf Urine Yeast (Budding) (None) /hpf Thrombosis Risk Factor Assmnt - Choose All That Apply Any of the Below Risk Factors Present?: Yes Each Factor Represents 1 point: Age 41-60 years, Medical pt on bed rest, Obesity (BMI >25) Thrombosis Risk Factor Assessment Total Risk Factor Score: 3 Thrombosis Risk Factor Assessment Level: Moderate Risk Assessment and Plan Assessment: Generalized weakness complicated by severe hypokalemia Severe hypokalemia secondary to diuretic torsemide Left heel unstageable diabetic foot ulcer with surrounding cellulitis. was on antibiotic course with ceftriaxone 2 g every 12 at home from recent discharge on 08/11/2023.patient will be discharged on oral antibiotic UTI, acute. Resolved cute on chronic CHF with systolic dysfunction ejection fraction 30 to 35%. Resolved Uncontrolled hypertension. Improved Elevated troponin level likely type II NE CKD stage IV with baseline creatinine 1.8-2 Persistent atrial fibrillation status post ALEXIA and cardioversion on 08/09/2023 Generalized weakness and fatigue and unable to ambulate get out of bed. Coronary artery with history of CABG and stent placement Diabetes type 2 insulin-dependent Hypothyroidism Hyperlipidemia Prior history of smoking DVT prophylaxis patient is already on Eliquis Diabetic peripheral neuropathy Iron deficiency anemia Plan: Hold torsemide Hold gabapentin Start IV Lasix Replace potassium per protocol rodent control worker consult Resume blood pressure medication with close monitoring DVT prophylaxis Eliquis GI prophylaxis P Pepcid Prognosis is guarded. We explained to the patient on several occasions including today he has to help himself or to comply with the medical insurance provider so he can get help. He understands that social security assessor cannot help him anymore. He understands most likely he will be sent back to his home once we treat his electrolytes abnormality, diuretic/fluid management. He will will be generally weak and he will still need help. He agrees he does not want to stay in the hospital and live here and to go back once he has been treated in 1 to 3 days
[2023-08-27] MEDS: HEPARIN SODIUM,PORCINE 5,000 UNIT/ML 1 ML VIAL SQ SCH (10:33)
[2023-08-27] MEDS: hydrALAZINE HCL 50 MG TAB PO SCH (10:34)
[2023-08-27] MEDS: LOSARTAN 50 MG TAB PO SCH (10:34)
[2023-08-27] MEDS: carvediloL 6.25 MG TAB PO SCH (10:34)
[2023-08-27] MEDS: amLODIPine 10 MG TAB PO SCH (10:34)
[2023-08-27] MEDS: FAMOTIDINE 20 MG TAB PO SCH (10:34)
[2023-08-27] MEDS: AMIODARONE 200 MG TAB PO SCH (10:35)
[2023-08-27 10:42] LABS: Glucose,Whole Blood 80 mg/dL (70-110)
[2023-08-27] MEDS ORDERED: Magnesium Replacement Protocol 1 EACH MISC MISCELLANE PRN (11:10)
[2023-08-27 12:21] LABS: ALT 10 U/L (4-49); AST 32 U/L (17-59); African American GFR (CKD) 59 (>60 ml/min/1.73 sqM); Albumin 3.1 g/dL (3.5-5.0); Alkaline Phosphatase 74 U/L (38-126); Anion Gap 5 mmol/L; Blood Urea Nitrogen 15 mg/dL (9-20); Calcium 8.5 mg/dL (8.4-10.2); Carbon Dioxide 33 mmol/L (22-30); Chloride 103 mmol/L (98-107); Glucose 79 mg/dL (74-99); Non-African American GFR(CKD) 51 (>60 ml/min/1.73 sqM); Sodium 141 mmol/L (137-145); Total Bilirubin 0.7 mg/dL (0.2-1.3); Total Protein 5.6 g/dL (6.3-8.2)
[2023-08-27] MEDS: metroNIDAZOLE 500 MG TAB PO SCH (16:14)
[2023-08-27 20:00] LABS: Glucose,Whole Blood 79 mg/dL (70-110)
[2023-08-27] MEDS: INSULIN DETEMIR (LEVEMIR) 100 UNIT/ML SYR SQ SCH (21:30)
[2023-08-27] MEDS: HYDROXYCHLOROQUINE SULFATE 200 MG TAB PO SCH (21:32)
[2023-08-27] MEDS: APIXABAN 5 MG TAB PO SCH (21:32)
[2023-08-27] MEDS: ATORVASTATIN 10 MG TAB PO SCH (21:32)
[2023-08-27] MEDS: BALSALAZIDE DISODIUM 750 MG CAPSULE PO SCH (21:32)
[2023-08-27 22:28] LABS: Glucose,Whole Blood 131 mg/dL (70-110)
[2023-08-27] MEDS: HYDROcodone/APAP 5-325MG 1 EACH TAB PO PRN (22:35)
[2023-08-28 05:54] LABS: Glucose,Whole Blood 81 mg/dL (70-110)
[2023-08-28] MEDS: LEVOTHYROXINE 100 MCG TAB PO SCH (06:33)
[2023-08-28 07:20] LABS: Appearance,Urine Turbid (Clear); Bilirubin,Urine Negative (Negative); Blood,Urine Moderate (Negative); Budding Yeast,Urine Many /hpf; Color,Urine Yellow; Glucose,Urine (UA) 3+ (Negative); Ketones,Urine 1+ (Negative); Leukocyte Esterase,Urine Large (Negative); Nitrite,Urine Negative (Negative); Protein,Urine 2+ (Negative); RBC,Urine 45 /hpf (0-5); Urobilinogen,Urine <2.0 mg/dL (<2.0); WBC,Urine >182 /hpf (0-5)
[2023-08-28 07:57] LABS: Basophils # (A) 0.1 k/uL (0-0.2); Basophils % (A) 1 %; Eosinophils # (A) 0.2 k/uL (0-0.7); Eosinophils % (A) 2 %; HGB 9.8 gm/dL (13.0-17.5); Hypochromasia Slight; Lymphocytes # (A) 0.7 k/uL (1.0-4.8); Lymphocytes % (A) 9 %; MCH 27.9 pg (25.0-35.0); MCHC 30.8 g/dL (31.0-37.0); MCV 90.5 fL (80.0-100.0); Mean Platelet Volume 7.8; Monocytes # (A) 0.6 k/uL (0-1.0); Monocytes % (A) 7 %; Neutrophils # (A) 6.9 k/uL (1.3-7.7); Neutrophils % (A) 80 %; Platelet Count 243 k/uL (150-450); RBC 3.53 m/uL (4.30-5.90); RDW 15.4 % (11.5-15.5); WBC 8.6 k/uL (3.8-10.6)
[2023-08-28 08:13] LABS: African American GFR (CKD) 61 (>60 ml/min/1.73 sqM); Anion Gap 6 mmol/L; Blood Urea Nitrogen 14 mg/dL (9-20); Calcium 8.3 mg/dL (8.4-10.2); Carbon Dioxide 31 mmol/L (22-30); Chloride 103 mmol/L (98-107); Glucose 85 mg/dL (74-99); Magnesium 1.7 mg/dL (1.6-2.3); Non-African American GFR(CKD) 53 (>60 ml/min/1.73 sqM); Potassium 3.4 mmol/L (3.5-5.1); Sodium 140 mmol/L (137-145)
[2023-08-28] MEDS: ISOSORBIDE MONONITRATE ER 30 MG TAB.ER.24H PO SCH (09:00)
[2023-08-28] MEDS: FERROUS SULFATE 325 MG TAB PO SCH (09:00)
[2023-08-28] MEDS: ASPIRIN 81 MG PO SCH (09:00)
[2023-08-28] MEDS: DAPAGLIFLOZIN PROPANEDIOL 10 MG TABLET PO SCH (09:01)
[2023-08-28 11:40] LABS: Glucose,Whole Blood 117 mg/dL (70-110)
--- NOTE | 2023-08-28 11:53 | P.PN ---
Subjective 67-year-old male patient, history of coronary artery disease status post PCI as well as CABG, cardiomyopathy, hypertension, hyperlipidemia, persistent atrial fibrillation, diabetes mellitus type 2, chronic kidney disease stage III, recent hospitalization earlier in July for which she was treated for diabetic foot ulcer/cellulitis of the left foot discharged home on IV antibiotics, Patient is a known case of generalized weakness, he had ulcers on treatment with antibiotic. This is the third hospitalization with similar complaint He has 2 hospitalizations previously from 07/30 up to 08/10, he was discharged on 10 July and came on the 628 and the second hospitalization went up to 08/24 where he was discharged 2 days ago. Patient had extensive discussion with him during previous admission. He refuses to give up his resources so he can apply for medical insurance so [facility] or placement. boil off worker already had extensive efforts with no help. Patient today confirms to me urine is 1900/month but he spends 1700/month on his bills for mortgages on his house as he mentions. However the patient confirms to me he does not want to stay in the hospital and leaving the hospital and he is expected to be treated and discharged However once he goes home he has limited help although his brother, home health care and Adult Protective Services were involved The home health care nurse came yesterday because of weakness after he spent 24 hours in his house found him very weak and sent him back to the hospital Today he is fully awake and oriented, no specific complaint, complains from some pain in his lower back asking for morphine which was given to give him one-time dose. Also he has bilateral heel ulcers more on the left side which looks infected already getting treatment for it Patient states he has been feeling nausea but he did not take his Zofran. He did not vomit in the. Patient hemodynamically stable, afebrile blood pressure on the high side Troponin chronically elevated with no chest pain most likely secondary to his renal disease His creatinine 1.3, baseline is 1.5-2.1 Potassium was severely low 2.7 08/28/23 Patient awake alert, no tachypnea or dyspnea, no chest pain He is just feels generally weak partly due to fluid overload and partly due to severe hypokalemia on presentation Today potassium 3.4. Therefore we continue to replace potassium. Also he was getting torsemide at home which might contributing to hypokalemia was held. However because of the fluid overload we put the patient on fluid restriction 1200 mL/day and we will going to start IV Lasix 40 mg twice daily Hoping that improving his fluid overload will help him to move better when he goes home Since previous admission, please refer to my previous discharge summary from previous hospitalization, patient has no days left for his rehab and his insurance cannot take his application because of he has funds at home. Ther efore the plan for him once is cleared from hospital he will go back to his home with current resources and help he has like home health care, Adult Protective Services and his brother. Patient agreed to this plan He has Rios catheter in place. Review of systems CONSTITUTIONAL: No fever, no malaise, no fatigue. HEENT: No recent visual problems or hearing problems. Denied any sore throat. oactive bowel sounds. NEUROLOGICAL: No headaches, no weakness, no numbness. HEMATOLOGICAL: Denies any bleeding or petechiae. GENITOURINARY: Denies any burning micturition, frequency, or urgency. MUSCULOSKELETAL/RHEUMATOLOGICAL: Denies any joint pain, swelling, or any muscle pain. ENDOCRINE: Denies any polyuria or polydipsia. Active Medications Generic Name Dose Route Start Last Admin Trade Name Freq PRN Reason Stop Dose Admin Acetaminophen 650 mg 08/27/23 09:50 Acetaminophen Tab 325 Mg Tab PO Q6HR PRN Mild Pain or Fever > 100.5 Hydrocodone Bitart/Acetaminophen 1 each 08/27/23 22:06 08/28/23 06:33 Hydrocodone/Apap 5-325mg 1 Each Tab PO 1 each Q6HR PRN Administration Pain Amiodarone HCl 200 mg 08/27/23 10:00 08/28/23 09:01 Amiodarone 200 Mg Tab PO 200 mg DAILY FELA Administration Amlodipine Besylate 10 mg 08/27/23 10:00 08/28/23 09:01 Amlodipine 10 Mg Tab PO 10 mg DAILY FELA Administration Apixaban 5 mg 08/27/23 21:00 08/28/23 09:01 Apixaban 5 Mg Tab PO 5 mg BID FELA Administration Protocol Aspirin 81 mg 08/28/23 09:00 08/28/23 09:00 Aspirin 81 Mg PO 81 mg DAILY FLEA Administration Atorvastatin Calcium 10 mg 08/27/23 21:00 08/27/23 21:32 Atorvastatin 10 Mg Tab PO 10 mg HS FELA Administration Balsalazide 2,250 mg 08/27/23 21:00 08/28/23 09:03 Balsalazide Disodium 750 Mg Capsule PO 2,250 mg BID FELA Administration Carvedilol 6.25 mg 08/27/23 10:00 08/28/23 09:00 Carvedilol 6.25 Mg Tab PO 6.25 mg BID FELA Administration Dapagliflozin 10 mg 08/28/23 09:00 08/28/23 09:01 Dapagliflozin Propanediol 10 Mg Tablet PO 10 mg DAILY FELA Administration Famotidine 20 mg 08/27/23 09:00 08/28/23 09:01 Famotidine 20 Mg Tab PO 20 mg BID FELA Administration Ferrous Sulfate 325 mg 08/28/23 09:00 08/28/23 09:00 Ferrous Sulfate 325 Mg Tab PO 325 mg DAILY FELA Administration Furosemide 40 mg 08/28/23 12:00 Furosemide 10 Mg/Ml 4 Ml Vial IV Q12HR FELA Hydralazine HCl 50 mg 08/27/23 10:00 08/28/23 09:01 Hydralazine Hcl 50 Mg Tab PO 50 mg TID FELA Administration Hydroxychloroquine Sulfate 200 mg 08/27/23 21:00 08/28/23 09:03 Hydroxychloroquine Sulfate 200 Mg Tab PO 200 mg BID [facility] Administration Ceftriaxone Sodium 2 gm/ 50 mls @ 100 mls/hr 08/27/23 10:00 08/28/23 09:01 Sodium Chloride IVPB 100 mls/hr Q24HR [facility] Administration Protocol Insulin Detemir 8 unit 08/27/23 21:00 08/27/23 21:30 Insulin Detemir (Levemir) 100 Unit/Ml Syr SQ Not Given HS [facility] Isosorbide Mononitrate 30 mg 08/28/23 09:00 08/28/23 09:00 Isosorbide Mononitrate Er 30 Mg Tab.Er.24h PO 30 mg DAILY FELA Administration Levothyroxine Sodium 100 mcg 08/28/23 06:00 08/28/23 06:33 Levothyroxine 100 Mcg Tab PO 100 mcg DAILY@0600 FELA Administration Losartan Potassium 50 mg 08/27/23 10:00 08/28/23 09:01 Losartan 50 Mg Tab PO 50 mg BID FELA Administration Meclizine HCl 12.5 mg 08/27/23 09:50 Meclizine 12.5 Mg Tab PO TID PRN Vertigo Metronidazole 500 mg 08/27/23 16:00 08/28/23 09:01 Metronidazole 500 Mg Tab PO 500 mg TID FELA Administration Protocol Miscellaneous Information 1 each 08/27/23 07:12 Potassium Replacement Protocol 1 Each Misc MISCELLANE DAILY PRN Per Protocol Protocol Miscellaneous Information 1 each 08/27/23 11:10 Potassium Replacement Protocol 1 Each Misc MISCELLANE DAILY PRN Per Protocol Protocol Miscellaneous Information 1 each 08/27/23 11:10 Magnesium Replacement Protocol 1 Each Misc MISCELLANE DAILY PRN Per Protocol Protocol Naloxone HCl 0.2 mg 08/26/23 22:22 Naloxone 0.4 Mg/Ml 1 Ml Vial IV Q2M PRN Opioid Reversal Ondansetron HCl 4 mg 08/27/23 09:50 Ondansetron 4 Mg Tab PO TID PRN Nausea Petrolatum 1 applic 08/27/23 13:04 Zinc Oxide Paste (Z-Guard) 1 Applic TOPICAL BID PRN Wound Healing Protocol Objective - Vital Signs Vital signs: Vital Signs Temp 98.0 F 08/28/23 08:42 Pulse 56 L 08/28/23 11:26 Resp 18 08/28/23 11:28 BP 129/72 08/28/23 11:26 Pulse Ox 93 L 08/28/23 11:28 FiO2 Intake & Output 08/27/23 08/28/23 08/28/23 18:59 06:59 18:59 Intake Total 10 444 Output Total 225 Balance -215 444 Weight 90.718 kg 90.52 kg Intake: IV 10 0.9 10 Oral 444 Output: Urine 225 Other: Voiding Method Urinal Diaper Diaper Diaper External Catheter External Catheter # Voids 1 - Exam -GENERAL: The patient is alert and oriented x3, not in any acute distress. Well developed, well nourished. Generally weak HEENT: Pupils are round and equally reacting to light. EOMI. No scleral icterus. No conjunctival pallor. Normocephalic, atraumatic. No pharyngeal erythema. No thyromegaly. CARDIOVASCULAR: S1 and S2 present. No murmurs, rubs, or gallops. PULMONARY: Chest is clear to auscultation, no wheezing , no crackles. -ABDOMEN: Soft, nontender, nondistended, normoactive bowel sounds. No palpable organomegaly. Rios catheter in place MUSCULOSKELETAL: No joint swelling or deformity. -EXTREMITIES: No cyanosis, clubbing,. Mild bilateral pitting leg edema. NEUROLOGICAL: Gross neurological examination did not reveal any focal deficits. SKIN: No rashes. no petechiae. - Labs CBC & Chem 7: 08/28/23 07:25 08/28/23 07:25 Labs: Abnormal Lab Results - Last 24 Hours (Table) 08/27/23 08/27/23 08/27/23 Range/Units 11:48 15:53 22:26 RBC (4.30-5.90) m/uL Hgb (13.0-17.5) gm/dL Hct (39.0-53.0) % MCHC (31.0-37.0) g/dL Lymphocytes # (1.0-4.8) k/uL Potassium 3.0 L 3.0 L (3.5-5.1) mmol/L Carbon Dioxide 33 H (22-30) mmol/L Creatinine 1.42 H (0.66-1.25) mg/dL POC Glucose (mg/dL) 131 H (70-110) mg/dL Calcium (8.4-10.2) mg/dL Total Protein 5.6 L (6.3-8.2) g/dL Albumin 3.1 L (3.5-5.0) g/dL Urine Protein (Negative) Urine Glucose (UA) (Negative) Urine Ketones (Negative) Urine Blood (Negative) Ur Leukocyte Esterase (Negative) Urine RBC (0-5) /hpf Urine WBC (0-5) /hpf Urine Yeast (Budding) (None) /hpf 08/28/23 08/28/23 08/28/23 Range/Units 06:30 07:25 07:25 RBC 3.53 L (4.30-5.90) m/uL Hgb 9.8 L (13.0-17.5) gm/dL Hct 32.0 L (39.0-53.0) % MCHC 30.8 L (31.0-37.0) g/dL Lymphocytes # 0.7 L (1.0-4.8) k/uL Potassium 3.4 L (3.5-5.1) mmol/L Carbon Dioxide 31 H (22-30) mmol/L Creatinine 1.37 H (0.66-1.25) mg/dL POC Glucose (mg/dL) (70-110) mg/dL Calcium 8.3 L (8.4-10.2) mg/dL Total Protein (6.3-8.2) g/dL Albumin (3.5-5.0) g/dL Urine Protein 2+ H (Negative) Urine Glucose (UA) 3+ H (Negative) Urine Ketones 1+ H (Negative) Urine Blood Moderate H (Negative) Ur Leukocyte Esterase Large H (Negative) Urine RBC 45 H (0-5) /hpf Urine WBC >182 H (0-5) /hpf Urine Yeast (Budding) Many H (None) /hpf 08/28/23 Range/Units 11:39 RBC (4.30-5.90) m/uL Hgb (13.0-17.5) gm/dL Hct (39.0-53.0) % MCHC (31.0-37.0) g/dL Lymphocytes # (1.0-4.8) k/uL Potassium (3.5-5.1) mmol/L Carbon Dioxide (22-30) mmol/L Creatinine (0.66-1.25) mg/dL POC Glucose (mg/dL) 117 H (70-110) mg/dL Calcium (8.4-10.2) mg/dL Total Protein (6.3-8.2) g/dL Albumin (3.5-5.0) g/dL Urine Protein (Negative) Urine Glucose (UA) (Negative) Urine Ketones (Negative) Urine Blood (Negative) Ur Leukocyte Esterase (Negative) Urine RBC (0-5) /hpf Urine WBC (0-5) /hpf Urine Yeast (Budding) (None) /hpf Assessment and Plan Assessment: Generalized weakness complicated by severe hypokalemia Severe hypokalemia secondary to diuretic torsemide Left heel unstageable diabetic foot ulcer with surrounding cellulitis. was on antibiotic course with ceftriaxone 2 g every 12 at home from recent discharge on 08/11/2023.patient will be discharged on oral antibiotic UTI, acute. Resolved cute on chronic CHF with systolic dysfunction ejection fraction 30 to 35%. Resolved Uncontrolled hypertension. Improved Elevated troponin level likely type II [place] CKD stage IV with baseline creatinine 1.8-2 Persistent atrial fibrillation status post ALEXIA and cardioversion on 08/09/2023 Generalized weakness and fatigue and unable to ambulate get out of bed. Coronary artery with history of CABG and stent placement Diabetes type 2 insulin-dependent Hypothyroidism Hyperlipidemia Prior history of smoking DVT prophylaxis patient is already on Eliquis Diabetic peripheral neuropathy Iron deficiency anemia Plan: Hold torsemide. Hold gabapentin Start IV Lasix Replace potassium per protocol boil off worker consult Resume blood pressure medication with close monitoring DVT prophylaxis Eliquis GI prophylaxis P Pepcid Prognosis is guarded. We explained to the patient on several occasions including today he has to help himself or to comply with the medical insurance provider so he can get help. He understands that social sciences research scientist cannot help him anymore. He understands most likely he will be sent back to his home once we treat his electrolytes abnormality, diuretic/fluid management. He will will be generally weak and he will still need help. He agrees he does not want to stay in the hospital and live here and to go back once he has been treated in for a few days
[2023-08-28] MEDS: FUROSEMIDE 10 MG/ML 4 ML VIAL IV SCH (12:06)
[2023-08-28] MEDS: POTASSIUM CHLORIDE ER 20 MEQ TAB.ER PO STA (12:06)
[2023-08-28 16:42] LABS: Glucose,Whole Blood 108 mg/dL (70-110)
[2023-08-28 20:25] LABS: Glucose,Whole Blood 112 mg/dL (70-110)
[2023-08-29 06:08] LABS: Glucose,Whole Blood 86 mg/dL (70-110)
[2023-08-29 07:10] LABS: Basophils # (A) 0.1 k/uL (0-0.2); Basophils % (A) 1 %; Eosinophils # (A) 0.2 k/uL (0-0.7); Eosinophils % (A) 3 %; HCT 30.8 % (39.0-53.0); HGB 9.9 gm/dL (13.0-17.5); Hypochromasia Slight; Lymphocytes # (A) 0.8 k/uL (1.0-4.8); Lymphocytes % (A) 10 %; MCH 29.1 pg (25.0-35.0); MCHC 32.2 g/dL (31.0-37.0); MCV 90.4 fL (80.0-100.0); Mean Platelet Volume 8.3; Monocytes # (A) 0.5 k/uL (0-1.0); Monocytes % (A) 6 %; Neutrophils % (A) 78 %; Platelet Count 204 k/uL (150-450); RBC 3.41 m/uL (4.30-5.90); RDW 15.3 % (11.5-15.5); WBC 7.7 k/uL (3.8-10.6)
[2023-08-29 07:25] LABS: African American GFR (CKD) 59 (>60 ml/min/1.73 sqM); Anion Gap 4 mmol/L; Blood Urea Nitrogen 15 mg/dL (9-20); Calcium 8.2 mg/dL (8.4-10.2); Carbon Dioxide 33 mmol/L (22-30); Chloride 102 mmol/L (98-107); Glucose 80 mg/dL (74-99); Non-African American GFR(CKD) 51 (>60 ml/min/1.73 sqM); Potassium 3.8 mmol/L (3.5-5.1); Sodium 139 mmol/L (137-145)
[2023-08-29 11:31] LABS: Glucose,Whole Blood 87 mg/dL (70-110)
[2023-08-29 16:24] LABS: Glucose,Whole Blood 82 mg/dL (70-110)
[2023-08-29 20:13] LABS: Glucose,Whole Blood 75 mg/dL (70-110)
--- NOTE | 2023-08-30 03:40 | P.PN ---
Subjective 67-year-old male patient, history of coronary artery disease status post PCI as well as CABG, cardiomyopathy, hypertension, hyperlipidemia, persistent atrial fibrillation, diabetes mellitus type 2, chronic kidney disease stage III, recent hospitalization earlier in July for which she was treated for diabetic foot ulcer/cellulitis of the left foot discharged home on IV antibiotics, Patient is a known case of generalized weakness, he had ulcers on treatment with antibiotic. This is the third hospitalization with similar complaint He has 2 hospitalizations previously from 07/30 up to 08/10, he was discharged on 10 July and came on the 628 and the second hospitalization went up to 08/24 where he was discharged 2 days ago. Patient had extensive discussion with him during previous admission. He refuses to give up his resources so he can apply for medical insurance so he can go to half-way for rehab or placement. spout worker already had extensive efforts with no help. Patient today confirms to me urine is 1900/month but he spends 1700/month on his bills for mortgages on his house as he mentions. However the patient confirms to me he does not want to stay in the hospital and leaving the hospital and he is expected to be treated and discharged However once he goes home he has limited help although his brother, home health care and Adult Protective Services were involved The home health care nurse came yesterday because of weakness after he spent 24 hours in his house found him very weak and sent him back to the hospital Today he is fully awake and oriented, no specific complaint, complains from some pain in his lower back asking for morphine which was given to give him one-time dose. Also he has bilateral heel ulcers more on the left side which looks infected already getting treatment for it Patient states he has been feeling nausea but he did not take his Zofran. He did not vomit in the. Patient hemodynamically stable, afebrile blood pressure on the high side Troponin chronically elevated with no chest pain most likely secondary to his renal disease His creatinine 1.3, baseline is 1.5-2.1 Potassium was severely low 2.7 08/28/23 Patient awake alert, no tachypnea or dyspnea, no chest pain He is just feels generally weak partly due to fluid overload and partly due to severe hypokalemia on presentation Today potassium 3.4. Therefore we continue to replace potassium. Also he was getting torsemide at home which might contributing to hypokalemia was held. However because of the fluid overload we put the patient on fluid restriction 1200 mL/day and we will going to start IV Lasix 40 mg twice daily Hoping that improving his fluid overload will help him to move better when he goes home Since previous admission, please refer to my previous discharge summary from previous hospitalization, patient has no days left for his rehab and his insurance cannot take his application because of he has funds at home. Ther efore the plan for him once is cleared from hospital he will go back to his home with current resources and help he has like home health care, Adult Protective Services and his brother. Patient agreed to this plan He has Rios catheter in place. 08/29/23 Patient keep coming to the hospital because he cannot take care of himself properly and has no help at all at the same time he has difficulty with medical insurance coverage because he has access he refused to keep up. This is the fourth time he comes to the hospital once his been discharged. However on admission he was severely hypokalemic 2.6 because he was on torsemide. Also he presents with fluid overload and CHF which might contribute to his generalized weakness. Therefore we started diuresing him so limit the diuretic upon disch vivianevic patel lasix 40 mg iv, monitor creatinine, possible discharge in 24-48 hours , discussed with the pt and he agrees to go home when he is medically ready Objective - Vital Signs Vital signs: Vital Signs Temp 97.5 F L 08/29/23 11:20 Pulse 72 08/29/23 11:20 Resp 18 08/29/23 11:20 BP 159/78 08/29/23 11:20 Pulse Ox 95 08/29/23 11:20 FiO2 Intake & Output 08/28/23 08/29/23 08/29/23 18:59 06:59 18:59 Intake Total 444 20 20 Output Total 950 950 550 Balance -506 -930 -530 Intake: IV 20 20 Invasive Line 1 20 20 Oral 444 Output: Urine 950 950 550 Other: Voiding Method Diaper Diaper Diaper External Catheter External Catheter External Catheter # Bowel Movements 0 - Exam -GENERAL: The patient is alert and oriented x3, not in any acute distress. Well developed, well nourished. Generally weak HEENT: Pupils are round and equally reacting to light. EOMI. No scleral icterus. No conjunctival pallor. Normocephalic, atraumatic. No pharyngeal erythema. No thyromegaly. CARDIOVASCULAR: S1 and S2 present. No murmurs, rubs, or gallops. PULMONARY: Chest is clear to auscultation, no wheezing , no crackles. -ABDOMEN: Soft, nontender, nondistended, normoactive bowel sounds. No palpable organomegaly. Rios catheter in place MUSCULOSKELETAL: No joint swelling or deformity. -EXTREMITIES: No cyanosis, clubbing,. Mild bilateral pitting leg edema. NEUROLOGICAL: Gross neurological examination did not reveal any focal deficits. SKIN: No rashes. no petechiae. - Labs CBC & Chem 7: 08/29/23 06:56 08/29/23 06:53 Labs: Abnormal Lab Results - Last 24 Hours (Table) 08/28/23 08/29/23 08/29/23 Range/Units 20:19 06:53 06:56 RBC 3.41 L (4.30-5.90) m/uL Hgb 9.9 L (13.0-17.5) gm/dL Hct 30.8 L (39.0-53.0) % Lymphocytes # 0.8 L (1.0-4.8) k/uL Carbon Dioxide 33 H (22-30) mmol/L Creatinine 1.41 H (0.66-1.25) mg/dL POC Glucose (mg/dL) 112 H (70-110) mg/dL Calcium 8.2 L (8.4-10.2) mg/dL Assessment and Plan Assessment: Generalized weakness complicated by severe hypokalemia Severe hypokalemia secondary to diuretic torsemide Left heel unstageable diabetic foot ulcer with surrounding cellulitis. was on antibiotic course with ceftriaxone 2 g every 12 at home from recent discharge on 08/11/2023.patient will be discharged on oral antibiotic UTI, acute. Resolved cute on chronic CHF with systolic dysfunction ejection fraction 30 to 35%. Resolved Uncontrolled hypertension. Improved Elevated troponin level likely type II TN CKD stage IV with baseline creatinine 1.8-2 Persistent atrial fibrillation status post ALEXIA and cardioversion on 08/09/2023 Generalized weakness and fatigue and unable to ambulate get out of bed. Coronary artery with history of CABG and stent placement Diabetes type 2 insulin-dependent Hypothyroidism Hyperlipidemia Prior history of smoking DVT prophylaxis patient is already on Eliquis Diabetic peripheral neuropathy Iron deficiency anemia Plan: Hold torsemide. Hold gabapentin Start IV Lasix Replace potassium per protocol spout worker consult Resume blood pressure medication with close monitoring DVT prophylaxis Eliquis GI prophylaxis P Pepcid Prognosis is guarded. We explained to the patient on several occasions including today he has to help himself or to comply with the medical insurance provider so he can get help. He understands that aids social worker cannot help him anymore. He understands most likely he will be sent back to his home once we treat his electrolytes abnormality, diuretic/fluid management. He will will be generally weak and he will still need help. He agrees he does not want to stay in the hospital and live here and to go back once he has been treated in for a few days
[2023-08-30 06:07] LABS: Glucose,Whole Blood 74 mg/dL (70-110)
[2023-08-30 08:58] LABS: African American GFR (CKD) 56 (>60 ml/min/1.73 sqM); Anion Gap 7 mmol/L; Blood Urea Nitrogen 17 mg/dL (9-20); Calcium 8.2 mg/dL (8.4-10.2); Carbon Dioxide 29 mmol/L (22-30); Chloride 102 mmol/L (98-107); Glucose 58 mg/dL (74-99); Non-African American GFR(CKD) 48 (>60 ml/min/1.73 sqM); Sodium 138 mmol/L (137-145)
[2023-08-30 09:03] LABS: Magnesium 1.6 mg/dL (1.6-2.3)
[2023-08-30] MEDS: MAGNESIUM SULFATE-D5W PMX 1 GM in DEXTROSE/WATER 1 100ML.BAG IVPB SCH (10:37)
[2023-08-30 11:30] LABS: Glucose,Whole Blood 89 mg/dL (70-110)
[2023-08-30] MEDS: FUROSEMIDE 40 MG TAB PO SCH (15:11)
[2023-08-30 15:30] VITALS: BMI 28.6
--- NOTE | 2023-08-30 16:22 | P.PN ---
Subjective Progress Note Date: 08/30/23 Patient was evaluated today resting in bed. He is reporting significant nausea most likely due to the antibiotics he is on. Patient states he was barely able to get up with physical therapy today secondary to his nausea. Apparently he has no more days at the rehab and social work is following up on this. Is currently on a 2-week course of oral Ceftin and oral Flagyl from his discharge on August 24. Changed IV Lasix to oral Lasix and monitor his blood pressure closely. Review of Systems Constitutional: Denied any fatigue denied any fever. Cardio vascular: denied any chest pain, palpitations Gastrointestinal: denied any nausea, vomiting, diarrhea Pulmonary: Denied any shortness of breath cough Neurologic denied any new focal deficits All inpatient medications were reviewed and appropriate changes in these medications as dictated in the interval history and assessment and plan. PHYSICAL EXAMINATION: GENERAL: The patient is alert and oriented x3, not in any acute distress. Well developed, well nourished. HEENT: Pupils are round and equally reacting to light. EOMI. No scleral icterus. No conjunctival pallor. Normocephalic, atraumatic. No pharyngeal erythema. No thyromegaly. CARDIOVASCULAR: S1 and S2 present. No murmurs, rubs, or gallops. PULMONARY: Chest is clear to auscultation, no wheezing or crackles. ABDOMEN: Soft, nontender, nondistended, normoactive bowel sounds. No palpable organomegaly. MUSCULOSKELETAL: No joint swelling or deformity. EXTREMITIES: No cyanosis, clubbing, or pedal edema. NEUROLOGICAL: Gross neurological examination did not reveal any focal deficits. SKIN: No rashes. Assesment and Plan Generalized weakness complicated by severe hypokalemia Severe hypokalemia secondary to diuretic torsemide Left heel unstageable diabetic foot ulcer with surrounding cellulitis. Was on oral ceftin and oral flagyl for 2 week course as of 08/25/23 discharge. UTI, acute. Resolved Acute on chronic CHF with systolic dysfunction ejection fraction 30 to 35%. Resolved Uncontrolled hypertension. Improved Elevated troponin level likely type II ID CKD stage IV with baseline creatinine 1.8-2 Persistent atrial fibrillation status post ALEXIA and cardioversion on 08/09/2023 Generalized weakness and fatigue and unable to ambulate get out of bed. Coronary artery with history of CABG and stent placement Diabetes type 2 insulin-dependent Hypothyroidism Hyperlipidemia Prior history of smoking DVT prophylaxis patient is already on Eliquis Diabetic peripheral neuropathy Iron deficiency anemia GI prophylaxis Full Code Plan Social Work following for discharge planning would benefit from rehab however he is out of rehab days at this time. Continue antibiotics as previously recommended by ID Local wound care to the left heel pending wound care consultation for recom mendations PT/OT consultation Continue pepcid and zofran. Replace magnesium repeat labs in the AM The impression and plan of care has been dictated by Zoe Pradhan, Nurse Practitioner as directed. Dr. Elaina MD I have performed a history and physical examination and medical decision making of this patient, discussed the same with the dictator, and agree with the dictators assessment and plan as written, documented as a scribe. Based on total visit time, I have performed more than 50% of this visit. Objective - Vital Signs Vital signs: Vital Signs Temp 97.9 F 08/30/23 09:18 Pulse 57 L 08/30/23 15:09 Resp 16 08/30/23 15:09 BP 140/65 08/30/23 15:09 Pulse Ox 93 L 08/30/23 15:09 FiO2 Intake & Output 08/29/23 08/30/23 08/30/23 18:59 06:59 18:59 Intake Total 20 10 Output Total 950 850 Balance -930 -840 Weight 90.52 kg Intake: IV 20 10 Invasive Line 1 20 10 Output: Urine 950 850 Other: Voiding Method Diaper Diaper Diaper External Catheter External Catheter External Catheter # Bowel Movements 1 - Labs CBC & Chem 7: 08/29/23 06:56 08/30/23 07:33 Labs: Abnormal Lab Results - Last 24 Hours (Table) 08/30/23 Range/Units 07:33 Creatinine 1.49 H (0.66-1.25) mg/dL Glucose 58 L (74-99) mg/dL Calcium 8.2 L (8.4-10.2) mg/dL Assessment and Plan Time with Patient: Less than 30
[2023-08-30 16:23] LABS: Glucose,Whole Blood 76 mg/dL (70-110)
[2023-08-30 19:55] LABS: Glucose,Whole Blood 64 mg/dL (70-110)
[2023-08-30 20:25] LABS: Glucose,Whole Blood 80 mg/dL (70-110)
[2023-08-31 02:00] LABS: Glucose,Whole Blood 64 mg/dL (70-110)
[2023-08-31 02:29] LABS: Glucose,Whole Blood 84 mg/dL (70-110)
[2023-08-31 06:37] LABS: Glucose,Whole Blood 91 mg/dL (70-110)
--- NOTE | 2023-08-31 11:13 | P.CONS ---
History of Present Illness - Reason for Consult Consult date: 08/31/23 wound care - History of Present Illness This is a 67-year-old patient with past medical history significant for Diabetes, hyperlipidemia, hypertension, thyroid disorder, pressure ulcer to the left heel. Patient has followed with Dr. Galindo in the past. However he is not a current patient in the wound care center at this time. Patient states that a nurse comes into his home and takes care of his wound. He has not seen for weekly debridements. Patient has a stage III pressure ulcer to the left heel he is unsure of the product that is being utilized at this time. The ulceration measures 2 x 2 x 0.5 cm with significant amount of slough and nonviable tissue present. Unable to palpate bone. Minimal granulation noted. Wound edges are not attached to the wound base. No tunneling or undermining noted. Patient has unstageable pressure ulcer to the right heel measuring approximately 3 x 3 x 0.1 cm blistering noted to the site. Review Of Systems: Constitutional: No fever, no chills, no night sweats. No weight change. No weakness, fatigue or lethargy. No daytime sleepiness. Integumentary:reports wounds, no lesions. No rash or pruritus. No unusual bruising. No change in hair or nails. Physical exam: General Appearance: Alert, cooperative, no distress, appears stated age. Skin: See HPI all other Skin color, texture, tugor normal, no rashes or lesions. Neurologic: Alert oriented x3 Assessment: 1. Stage III pressure ulcer left heel 2. Unstageable pressure ulcer right heel 3. Diabetic foot ulceration Plan: 1. Apply honey gel and bordered foam to the site. Utilize heel protectors. Patient may benefit from advanced wound care however he would like to continue with his current wound care plan. Thank you for the consultation any questions please contact the wound care center DNP note has been reviewed and discussed with Dr. Buenrostro and the impression and plan of care has been directed as dictated. Past Medical History Past Medical History: Diabetes Mellitus, Hyperlipidemia, Hypertension, Thyroid Disorder History of Any Multi-Drug Resistant Organisms: None Reported Year Discovered:: 04/21/23 MDRO Source:: Left Foot Past Surgical History: Coronary Bypass/CABG, Heart Catheterization With Stent Additional Past Surgical History / Comment(s): left great and second toe removal. bilat carpal tunnel. neck fusion 5-6-7. triple bypass Past Anesthesia/Blood Transfusion Reactions: No Reported Reaction Additional Past Anesthesia/Blood Transfusion Reaction / Comm: no blood transfusion Date of Last Stent Placement:: 02/2002 Past Psychological History: No Psychological Hx Reported Smoking Status: Former smoker Past Alcohol Use History: None Reported Additional Past Alcohol Use History / Comment(s): quit smoking at 38 Past Drug Use History: None Reported - Past Family History Father History Unknown: Yes Mother History Unknown: Yes Medications and Allergies Home Medications Medication Instructions Recorded Confirmed Type Ferrous Sulfate [Iron (65 MG 325 mg PO DAILY 03/04/21 08/26/23 History Elemental)] Hydroxychloroquine Sulfate 200 mg PO BID 03/04/21 08/26/23 History [Plaquenil] Levothyroxine Sodium [Synthroid] 100 mcg PO DAILY@0600 03/04/21 08/26/23 History Meclizine [Antivert] 12.5 mg PO TID PRN 30 Days #90 03/13/21 08/26/23 Rx tablet Balsalazide Disodium [Colazal] 2,250 mg PO BID 03/17/23 08/26/23 History Loratadine [Claritin] 10 mg PO DAILY 03/17/23 08/26/23 History Apixaban [Eliquis] 5 mg PO BID #60 tab 06/11/23 08/26/23 Rx Atorvastatin [Lipitor] 10 mg PO HS 08/01/23 08/26/23 History Insulin Lispro See Protocol SQ TID-W/MEALS 08/01/23 08/26/23 History Melatonin 10 mg PO HS 08/01/23 08/26/23 History Ondansetron [Zofran] 4 mg PO TID PRN 08/01/23 08/26/23 History Acetaminophen Tab [Tylenol] 650 mg PO Q6HR PRN tab 08/11/23 08/26/23 Rx Amiodarone [Cordarone] 200 mg PO DAILY #30 tab 08/11/23 08/26/23 Rx Aspirin 81 mg PO DAILY #30 tab 08/11/23 08/26/23 Rx Losartan [Cozaar] 50 mg PO BID #60 tab 08/11/23 08/26/23 Rx Torsemide [Demadex] 10 mg PO DAILY 30 Days #15 tab 08/11/23 08/26/23 Rx hydrALAZINE HCL [Apresoline] 50 mg PO TID #90 tab 08/11/23 08/26/23 Rx Gabapentin [Neurontin] 100 mg PO Q8H 08/12/23 08/26/23 History Dapagliflozin Propanediol [Farxiga] 10 mg PO DAILY #30 tab 08/25/23 08/26/23 Rx Famotidine [Pepcid] 20 mg PO BID 30 Days #60 tablet 08/25/23 08/26/23 Rx HYDROcodone/APAP 5-325MG [[place] 1 tab PO HS PRN 5 Days #5 tab 08/25/23 08/26/23 Rx 5-325] Insulin Detemir (Levemir) [Levemir] 8 unit SQ HS #10 gm 08/25/23 08/26/23 Rx Isosorbide Mononitrate ER [Imdur] 30 mg PO DAILY #30 tab 08/25/23 08/26/23 Rx amLODIPine [Norvasc] 10 mg PO DAILY #30 tab 08/25/23 08/26/23 Rx carvediloL [Coreg] 6.25 mg PO BID 30 Days #60 tablet 08/25/23 08/26/23 Rx cefUROXime axetiL [Ceftin] 500 mg PO BID #28 tab 08/25/23 08/26/23 Rx metroNIDAZOLE [Flagyl] 500 mg PO TID #42 tab 08/25/23 08/26/23 Rx Allergies Allergy/AdvReac Type Severity Reaction Status Date / Time Penicillins Allergy Unknown Verified 08/26/23 19:51 Childhood Physical Exam Vitals: Vital Signs Temp Pulse Pulse Resp BP Pulse Ox 08/31/23 09:31 97.3 F L 60 16 145/56 93 L 08/31/23 03:12 98.0 F 58 L 16 137/78 92 L 08/31/23 01:07 16 08/30/23 23:30 60 16 143/67 93 L 08/30/23 20:30 97.1 F L 63 18 116/46 92 L 08/30/23 15:09 57 L 16 140/65 93 L 08/30/23 11:57 59 L 17 128/56 93 L Intake and Output 08/30/23 08/31/23 08/31/23 22:59 06:59 14:59 Intake Total 480 Output Total 550 Balance -550 480 Intake: Oral 480 Output: Urine 550 Other: Voiding Method Diaper Diaper Diaper External Catheter External Catheter External Catheter # Bowel Movements 1 Weight 90.52 kg Results CBC & Chem 7: 08/29/23 06:56 08/30/23 07:33 Labs: Abnormal Lab Results - Last 24 Hours (Table) 08/30/23 08/31/23 Range/Units 19:49 01:58 POC Glucose (mg/dL) 64 L 64 L (70-110) mg/dL Assessment and Plan (1) Unstageable pressure ulcer of right heel Current Visit: Yes Status: Acute Code(s): L89.610 - PRESSURE ULCER OF RIGHT HEEL, UNSTAGEABLE SNOMED Code(s): 77185612171627652 (2) Diabetic foot ulcer Current Visit: No Status: Acute Code(s): E11.621 - TYPE 2 DIABETES MELLITUS WITH FOOT ULCER; L97.509 - NON-PRESSURE CHRONIC ULCER OTH PRT UNSP FOOT W UNSP SEVERITY SNOMED Code(s): 000841171 (3) Pressure injury of left heel, stage 2 Current Visit: No Status: Acute Code(s): L89.622 - PRESSURE ULCER OF LEFT HEEL, STAGE 2 SNOMED Code(s): 49426955865744
[2023-08-31 11:36] LABS: Glucose,Whole Blood 98 mg/dL (70-110)
[2023-08-31 11:46] LABS: HCT 32.7 % (39.0-53.0); MCH 27.8 pg (25.0-35.0); MCHC 30.6 g/dL (31.0-37.0); MCV 90.8 fL (80.0-100.0); Mean Platelet Volume 8.9; Platelet Count 208 k/uL (150-450); RDW 15.4 % (11.5-15.5); WBC 6.2 k/uL (3.8-10.6)
[2023-08-31 11:56] LABS: African American GFR (CKD) 51 (>60 ml/min/1.73 sqM); Anion Gap 6 mmol/L; Blood Urea Nitrogen 16 mg/dL (9-20); Calcium 8.3 mg/dL (8.4-10.2); Carbon Dioxide 32 mmol/L (22-30); Chloride 100 mmol/L (98-107); Glucose 85 mg/dL (74-99); Magnesium 1.9 mg/dL (1.6-2.3); Non-African American GFR(CKD) 44 (>60 ml/min/1.73 sqM); Potassium 3.3 mmol/L (3.5-5.1); Sodium 138 mmol/L (137-145)
[2023-08-31] MEDS: ONDANSETRON 4 MG/2 ML VIAL IVP PRN (12:23)
[2023-08-31 16:41] LABS: Glucose,Whole Blood 122 mg/dL (70-110)
[2023-08-31 20:30] LABS: Glucose,Whole Blood 101 mg/dL (70-110)
--- NOTE | 2023-08-31 20:41 | P.PN ---
Subjective Progress Note Date: 08/31/23 Patient was evaluated today resting in bed. He is reporting significant nausea most likely due to the antibiotics he is on. Patient states he was barely able to get up with physical therapy today secondary to his nausea. Apparently he has no more days at the rehab and social work is following up on this. Is currently on a 2-week course of oral Ceftin and oral Flagyl from his discharge on August 24. Changed IV Lasix to oral Lasix and monitor his blood pressure closely. 08/31/2023 Patient is evaluated today in follow up resting in bed. Continues to report significant nausea. recommending to continue with IV zofran. PT/OT recommending rehab at this time and 14/09 care, patient is out of rehab days. Social work recommending guardian at this time. BUN 16, creatinine 1.60. Review of Systems Constitutional: Denied any fatigue denied any fever. Cardio vascular: denied any chest pain, palpitations Gastrointestinal: denied any nausea, vomiting, diarrhea Pulmonary: Denied any shortness of breath cough Neurologic denied any new focal deficits All inpatient medications were reviewed and appropriate changes in these medications as dictated in the interval history and assessment and plan. PHYSICAL EXAMINATION: GENERAL: The patient is alert and oriented x3, not in any acute distress. Well developed, well nourished. HEENT: Pupils are round and equally reacting to light. EOMI. No scleral icterus. No conjunctival pallor. Normocephalic, atraumatic. No pharyngeal erythema. No thyromegaly. CARDIOVASCULAR: S1 and S2 present. No murmurs, rubs, or gallops. PULMONARY: Chest is clear to auscultation, no wheezing or crackles. ABDOMEN: Soft, nontender, nondistended, normoactive bowel sounds. No palpable organomegaly. MUSCULOSKELETAL: No joint swelling or deformity. EXTREMITIES: No cyanosis, clubbing, or pedal edema. NEUROLOGICAL: Gross neurological examination did not reveal any focal deficits. SKIN: No rashes. Assesment and Plan Generalized weakness complicated by severe hypokalemia Severe hypokalemia secondary to diuretic torsemide resolved. Left heel Stage III diabetic foot ulcer with surrounding cellulitis. and right heel unstageable heel ulcer. Was on oral ceftin and oral flagyl for 2 week course as of 08/25/23 discharge. UTI, acute. Resolved Acute on chronic CHF with systolic dysfunction ejection fraction 30 to 35%. Resolved Uncontrolled hypertension. Improved Mild renal insufficiency prerenal from poorl intake and continued diuresis. Elevated troponin level likely type II [place] CKD stage IV with baseline creatinine 1.8-2 Persistent atrial fibrillation status post ALEXIA and cardioversion on 08/09/2023 Generalized weakness and fatigue and unable to ambulate get out of bed. Coronary artery with history of CABG and stent placement Diabetes type 2 insulin-dependent Hypothyroidism Hyperlipidemia Prior history of smoking DVT prophylaxis patient is already on Eliquis Diabetic peripheral neuropathy Iron deficiency anemia GI prophylaxis Full Code Plan Social Work following for discharge planning would benefit from rehab however he is out of rehab days at this time. Recommending legal guardian. Continue antibiotics as previously recommended by ID Local wound care to heel ulcers with honey gel and boarded foam to the site. PT/OT consultation Continue pepcid and zofran. Encourage oral intake. Replace potassium Repeat blood work in the AM. The impression and plan of care has been dictated by Zoe Pradhan, Nurse Practitioner as directed. Dr. Elaina MD I have performed a history and physical examination and medical decision making of this patient, discussed the same with the dictator, and agree with the dictators assessment and plan as written, documented as a scribe. Based on total visit time, I have performed more than 50% of this visit. Objective - Vital Signs Vital signs: Vital Signs Temp 97.3 F L 08/31/23 09:31 Pulse 60 08/31/23 15:58 Resp 18 08/31/23 15:58 BP 124/70 08/31/23 15:58 Pulse Ox 92 L 08/31/23 15:58 FiO2 Intake & Output 08/31/23 08/31/23 09/01/23 06:59 18:59 06:59 Intake Total 830 Output Total 150 Balance -150 830 Intake: Oral 830 Output: Urine 150 Other: Voiding Method Diaper Diaper External Catheter External Catheter # Bowel Movements 1 - Labs CBC & Chem 7: 08/31/23 10:50 08/31/23 10:50 Labs: Abnormal Lab Results - Last 24 Hours (Table) 08/31/23 08/31/23 08/31/23 Range/Units 01:58 10:50 10:50 RBC 3.60 L (4.30-5.90) m/uL Hgb 10.0 L (13.0-17.5) gm/dL Hct 32.7 L (39.0-53.0) % MCHC 30.6 L (31.0-37.0) g/dL Potassium 3.3 L (3.5-5.1) mmol/L Carbon Dioxide 32 H (22-30) mmol/L Creatinine 1.60 H (0.66-1.25) mg/dL POC Glucose (mg/dL) 64 L (70-110) mg/dL Calcium 8.3 L (8.4-10.2) mg/dL 08/31/23 Range/Units 16:39 RBC (4.30-5.90) m/uL Hgb (13.0-17.5) gm/dL Hct (39.0-53.0) % MCHC (31.0-37.0) g/dL Potassium (3.5-5.1) mmol/L Carbon Dioxide (22-30) mmol/L Creatinine (0.66-1.25) mg/dL POC Glucose (mg/dL) 122 H (70-110) mg/dL Calcium (8.4-10.2) mg/dL Assessment and Plan Time with Patient: Less than 30
[2023-08-31] MEDS: POTASSIUM CHLORIDE ER 20 MEQ TAB.ER PO STA (22:06)
[2023-09-01 06:22] LABS: Glucose,Whole Blood 98 mg/dL (70-110)
[2023-09-01 07:27] LABS: African American GFR (CKD) 52 (>60 ml/min/1.73 sqM); Anion Gap 5 mmol/L; Blood Urea Nitrogen 16 mg/dL (9-20); Calcium 8.3 mg/dL (8.4-10.2); Carbon Dioxide 32 mmol/L (22-30); Chloride 102 mmol/L (98-107); Glucose 78 mg/dL (74-99); Non-African American GFR(CKD) 45 (>60 ml/min/1.73 sqM); Potassium 3.7 mmol/L (3.5-5.1); Sodium 139 mmol/L (137-145)
[2023-09-01] MEDS: FAMOTIDINE 20 MG TAB PO SCH (10:24)
[2023-09-01 11:58] LABS: Glucose,Whole Blood 92 mg/dL (70-110)
[2023-09-01] MEDS ORDERED: PROCHLORPERAZINE INJ 10 MG/2 ML VIAL IVP PRN (15:48)
[2023-09-01 16:53] LABS: Glucose,Whole Blood 77 mg/dL (70-110)
--- NOTE | 2023-09-01 17:05 | XR ---
EXAMINATION TYPE: XR abdomen 2V DATE OF EXAM: 09/01/2023 4:32 PM CLINICAL INDICATION:Male, 67 years old with history of nausea; COMPARISON: None. TECHNIQUE: Two views of the abdomen were obtained. FINDINGS: The bowel gas pattern is nonspecific without dilated loops of small or large bowel. There i s no evidence for organomegaly or pneumoperitoneum. The osseous structures are intact. No abnormal calcifications are present. Fecal material and gas are demonstrated throughout the colon and rectum. Sternotomy wires. IMPRESSION: Nonspecific bowel gas pattern without radiographic evidence for acute process.
--- NOTE | 2023-09-01 18:41 | P.PN ---
Subjective Progress Note Date: 09/01/23 Patient was evaluated today resting in bed. He is reporting significant nausea most likely due to the antibiotics he is on. Patient states he was barely able to get up with physical therapy today secondary to his nausea. Apparently he has no more days at the rehab and social work is following up on this. Is currently on a 2-week course of oral Ceftin and oral Flagyl from his discharge on August 24. Changed IV Lasix to oral Lasix and monitor his blood pressure closely. 08/31/2023 Patient is evaluated today in follow up resting in bed. Continues to report significant nausea. recommending to continue with IV zofran. PT/OT recommending rehab at this time and 14/09 care, patient is out of rehab days. Social work recommending guardian at this time. BUN 16, creatinine 1.60. 09/01/2023 Patient evaluated today in follow up. Continues to report significant nausea with poor oral intake. He continues on IV zofran 4 mg every 6 hours and recommending to also add compazine. Abdominal xray done reveals no acute process. BUN 16, creatinine 1.56. Review of Systems Constitutional: Denied any fatigue denied any fever. Cardio vascular: denied any chest pain, palpitations Gastrointestinal: denied any nausea, vomiting, diarrhea Pulmonary: Denied any shortness of breath cough Neurologic denied any new focal deficits All inpatient medications were reviewed and appropriate changes in these medications as dictated in the interval history and assessment and plan. PHYSICAL EXAMINATION: GENERAL: The patient is alert and oriented x3, not in any acute distress. Well developed, well nourished. HEENT: Pupils are round and equally reacting to light. EOMI. No scleral icterus. No conjunctival pallor. Normocephalic, atraumatic. No pharyngeal erythema. No thyromegaly. CARDIOVASCULAR: S1 and S2 present. No murmurs, rubs, or gallops. PULMONARY: Chest is clear to auscultation, no wheezing or crackles. ABDOMEN: Soft, nontender, nondistended, normoactive bowel sounds. No palpable organomegaly. MUSCULOSKELETAL: No joint swelling or deformity. EXTREMITIES: No cyanosis, clubbing, or pedal edema. NEUROLOGICAL: Gross neurological examination did not reveal any focal deficits. SKIN: No rashes. Assesment and Plan Generalized weakness complicated by severe hypokalemia Severe hypokalemia secondary to diuretic torsemide resolved. Left heel Stage III diabetic foot ulcer with surrounding cellulitis. and right heel unstageable heel ulcer. Was on oral ceftin and oral flagyl for 2 week course as of 08/25/23 discharge. UTI, acute. Resolved Acute on chronic CHF with systolic dysfunction ejection fraction 30 to 35%. Resolved Uncontrolled hypertension. Improved Mild renal insufficiency prerenal from poor oral intake and continued diuresis. Elevated troponin level likely type II HI CKD stage IV with baseline creatinine 1.8-2 Persistent atrial fibrillation status post ALEXIA and cardioversion on 08/09/2023 Generalized weakness and fatigue and unable to ambulate get out of bed. Coronary artery with history of CABG and stent placement Diabetes type 2 insulin-dependent Hypothyroidism Hyperlipidemia Prior history of smoking DVT prophylaxis patient is already on Eliquis Diabetic peripheral neuropathy Iron deficiency anemia GI prophylaxis Full Code Plan Social Work following for discharge planning would benefit from rehab however he is out of rehab days at this time. Recommending legal guardian and hearing is on wednesday. Continue antibiotics as previously recommended by [facility] wound care to heel ulcers with honey gel and boarded foam to the site. PT/OT consultation Continue pepcid and zofran. Added compazine. Encourage oral intake. Replace potassium Repeat blood work in the AM. The impression and plan of care has been dictated by Zoe Pradhan, Nurse Practitioner as directed. Dr. Elaina MD I have performed a history and physical examination and medical decision making of this patient, discussed the same with the dictator, and agree with the dictators assessment and plan as written, documented as a scribe. Based on total visit time, I have performed more than 50% of this visit. Objective - Vital Signs Vital signs: Vital Signs Temp 97.7 F 09/01/23 16:00 Pulse 59 L 09/01/23 16:00 Resp 16 09/01/23 16:00 BP 132/65 09/01/23 16:00 Pulse Ox 93 L 09/01/23 16:00 FiO2 Intake & Output 08/31/23 09/01/23 09/01/23 18:59 06:59 18:59 Intake Total 830 538 Balance 830 538 Intake: Oral 830 538 Other: Voiding Method Diaper External Catheter External Catheter External Catheter # Bowel Movements 1 - Labs CBC & Chem 7: 08/31/23 10:50 09/01/23 06:36 Labs: Abnormal Lab Results - Last 24 Hours (Table) 09/01/23 Range/Units 06:36 Carbon Dioxide 32 H (22-30) mmol/L Creatinine 1.56 H (0.66-1.25) mg/dL Calcium 8.3 L (8.4-10.2) mg/dL Assessment and Plan Time with Patient: Less than 30
[2023-09-01 20:16] LABS: Glucose,Whole Blood 84 mg/dL (70-110)
[2023-09-02 06:02] LABS: Glucose,Whole Blood 68 mg/dL (70-110)
[2023-09-02 06:24] LABS: Glucose,Whole Blood 73 mg/dL (70-110)
[2023-09-02 08:35] LABS: Hypochromasia Slight; MCH 27.5 pg (25.0-35.0); MCHC 30.3 g/dL (31.0-37.0); MCV 90.9 fL (80.0-100.0); Platelet Count 213 k/uL (150-450); RBC 3.63 m/uL (4.30-5.90)
[2023-09-02 08:44] LABS: African American GFR (CKD) 55 (>60 ml/min/1.73 sqM); Anion Gap 7 mmol/L; Blood Urea Nitrogen 17 mg/dL (9-20); Calcium 8.3 mg/dL (8.4-10.2); Carbon Dioxide 28 mmol/L (22-30); Chloride 104 mmol/L (98-107); Glucose 73 mg/dL (74-99); Non-African American GFR(CKD) 47 (>60 ml/min/1.73 sqM); Potassium 3.4 mmol/L (3.5-5.1); Sodium 139 mmol/L (137-145)
[2023-09-02] MEDS: POTASSIUM CHLORIDE ER 20 MEQ TAB.ER PO STA (11:03)
[2023-09-02 11:32] LABS: Glucose,Whole Blood 88 mg/dL (70-110)
[2023-09-02] MEDS: POTASSIUM CHLORIDE ER 20 MEQ TAB.ER PO ONE (12:13)
--- NOTE | 2023-09-02 15:49 | P.PN ---
Subjective Progress Note Date: 09/02/23 Patient was evaluated today resting in bed. He is reporting significant nausea most likely due to the antibiotics he is on. Patient states he was barely able to get up with physical therapy today secondary to his nausea. Apparently he has no more days at the rehab and social work is following up on this. Is currently on a 2-week course of oral Ceftin and oral Flagyl from his discharge on August 24. Changed IV Lasix to oral Lasix and monitor his blood pressure closely. 08/31/2023 Patient is evaluated today in follow up resting in bed. Continues to report significant nausea. recommending to continue with IV zofran. PT/OT recommending rehab at this time and 14/09 care, patient is out of rehab days. Social work recommending guardian at this time. BUN 16, creatinine 1.60. 09/01/2023 Patient evaluated today in follow up. Continues to report significant nausea with poor oral intake. He continues on IV zofran 4 mg every 6 hours and recommending to also add compazine. Abdominal xray done reveals no acute process. BUN 16, creatinine 1.56. 09/02/2023 Patient is currently awaiting guardianship hearing which will be on Wednesday. He does require subacute rehab however is out of rehab days through his health insurance. He is continued on his IV and oral medications and has 7 days left of his treatment as recommended by Dr. Liang. Patient continues to report significant nausea he is on a combination of IV Compazine and IV Zofran. Blood cell count is 7.0, hemoglobin 10.0, sodium 139, potassium 3.4, BUN of 17, creatinine 1.51. Review of Systems Constitutional: Denied any fatigue denied any fever. Cardio vascular: denied any chest pain, palpitations Gastrointestinal: denied any nausea, vomiting, diarrhea Pulmonary: Denied any shortness of breath cough Neurologic denied any new focal deficits All inpatient medications were reviewed and appropriate changes in these medications as dictated in the interval history and assessment and plan. PHYSICAL EXAMINATION: GENERAL: The patient is alert and oriented x3, not in any acute distress. Well developed, well nourished. HEENT: Pupils are round and equally reacting to light. EOMI. No scleral icterus. No conjunctival pallor. Normocephalic, atraumatic. No pharyngeal erythema. No thyromegaly. CARDIOVASCULAR: S1 and S2 present. No murmurs, rubs, or gallops. PULMONARY: Chest is clear to auscultation, no wheezing or crackles. ABDOMEN: Soft, nontender, nondistended, normoactive bowel sounds. No palpable organomegaly. MUSCULOSKELETAL: No joint swelling or deformity. EXTREMITIES: No cyanosis, clubbing, or pedal edema. NEUROLOGICAL: Gross neurological examination did not reveal any focal deficits. SKIN: No rashes. Assesment and Plan Generalized weakness complicated by severe hypokalemia Severe hypokalemia secondary to diuretic torsemide resolved. Left heel Stage III diabetic foot ulcer with surrounding cellulitis. and right heel unstageable heel ulcer. Was on oral ceftin and oral flagyl for 2 week course as of 08/25/23 discharge. UTI, acute. Resolved Acute on chronic CHF with systolic dysfunction ejection fraction 30 to 35%. Resolved Uncontrolled hypertension. Improved Mild renal insufficiency prerenal from poor oral intake and continued diuresis. Elevated troponin level likely type II ID CKD stage IV with baseline creatinine 1.8-2 Persistent atrial fibrillation status post ALEXIA and cardioversion on 08/09/2023 Generalized weakness and fatigue and unable to ambulate get out of bed. Coronary artery with history of CABG and stent placement Diabetes type 2 insulin-dependent Hypothyroidism Hyperlipidemia Prior history of smoking DVT prophylaxis patient is already on Eliquis Diabetic peripheral neuropathy Iron deficiency anemia GI prophylaxis Full Code Plan Social Work following for discharge planning would benefit from rehab however he is out of rehab days at this time. Recommending legal guardian and hearing is on wednesday. Continue antibiotics as previously recommended by [facility] wound care to heel ulcers with honey gel and boarded foam to the site. PT/OT consultation Continue pepcid and zofran. Added compazine. Encourage oral intake. Replace potassium Repeat blood work in the AM. The impression and plan of care has been dictated by Zoe Pradhan Nurse Practitioner as directed. Dr. Elaina MD I have performed a history and physical examination and medical decision making of this patient, discussed the same with the dictator, and agree with the dictators assessment and plan as written, documented as a scribe. Based on total visit time, I have performed more than 50% of this visit. Objective - Vital Signs Vital signs: Vital Signs Temp 97.8 F 09/02/23 12:00 Pulse 57 L 09/02/23 12:00 Resp 18 09/02/23 12:00 BP 149/69 09/02/23 12:00 Pulse Ox 93 L 09/02/23 12:00 FiO2 Intake & Output 09/01/23 09/02/23 09/02/23 18:59 06:59 18:59 Intake Total 50 620 Output Total 550 Balance 50 -550 620 Intake: IV 70 0.9 70 Intake, IV Titration 50 Amount cefTRIAXone 2 gm In 50 Sodium Chloride 0.9% 50 ml @ 100 mls/hr IVPB Q24HR [facility] Rx#:[id number] Oral 50 500 Output: Urine 550 Other: Voiding Method External Catheter External Catheter External Catheter # Bowel Movements 1 1 1 - Labs CBC & Chem 7: 09/02/23 07:54 09/02/23 07:54 Labs: Abnormal Lab Results - Last 24 Hours (Table) 09/02/23 09/02/23 09/02/23 Range/Units 06:00 07:54 07:54 RBC 3.63 L (4.30-5.90) m/uL Hgb 10.0 L (13.0-17.5) gm/dL Hct 33.0 L (39.0-53.0) % MCHC 30.3 L (31.0-37.0) g/dL Potassium 3.4 L (3.5-5.1) mmol/L Creatinine 1.51 H (0.66-1.25) mg/dL Glucose 73 L (74-99) mg/dL POC Glucose (mg/dL) 68 L (70-110) mg/dL Calcium 8.3 L (8.4-10.2) mg/dL Assessment and Plan Time with Patient: Less than 30
[2023-09-02 16:23] LABS: Glucose,Whole Blood 114 mg/dL (70-110)
[2023-09-02 20:00] LABS: Glucose,Whole Blood 75 mg/dL (70-110)
[2023-09-03 02:00] LABS: Glucose,Whole Blood 49 mg/dL (70-110)
[2023-09-03 02:24] LABS: Glucose,Whole Blood 60 mg/dL (70-110)
[2023-09-03] MEDS: DEXTROSE 50% SYRINGE 50 ML IVP STA (02:36)
[2023-09-03] MEDS: DEXTROSE 50% SYRINGE 50 ML IVP ONE (02:46)
[2023-09-03 03:32] LABS: Glucose,Whole Blood 127 mg/dL (70-110)
[2023-09-03 06:12] LABS: Glucose,Whole Blood 76 mg/dL (70-110)
[2023-09-03 08:09] LABS: African American GFR (CKD) 51 (>60 ml/min/1.73 sqM); Anion Gap 2 mmol/L; Blood Urea Nitrogen 15 mg/dL (9-20); Calcium 8.4 mg/dL (8.4-10.2); Carbon Dioxide 36 mmol/L (22-30); Chloride 103 mmol/L (98-107); Glucose 54 mg/dL (74-99); Non-African American GFR(CKD) 44 (>60 ml/min/1.73 sqM); Potassium 3.5 mmol/L (3.5-5.1); Sodium 141 mmol/L (137-145)
[2023-09-03 11:22] LABS: Glucose,Whole Blood 98 mg/dL (70-110)
[2023-09-03] MEDS: POTASSIUM CHLORIDE ER 20 MEQ TAB.ER PO STA (13:23)
[2023-09-03] MEDS: CITALOPRAM HYDROBROMIDE 10 MG TAB PO SCH (13:23)
[2023-09-03] MEDS: ZINC OXIDE PASTE (Z-GUARD) 1 APPLIC TOPICAL PRN (13:27)
[2023-09-03 16:22] LABS: Glucose,Whole Blood 72 mg/dL (70-110)
[2023-09-03 19:51] LABS: Glucose,Whole Blood 89 mg/dL (70-110)
--- NOTE | 2023-09-03 23:29 | P.PN ---
Subjective Progress Note Date: 09/03/23 (\) Patient was evaluated today resting in bed. He is reporting significant nausea most likely due to the antibiotics he is on. Patient states he was barely able to get up with physical therapy today secondary to his nausea. Apparently he has no more days at the rehab and social work is following up on this. Is currently on a 2-week course of oral Ceftin and oral Flagyl from his discharge on August 24. Changed IV Lasix to oral Lasix and monitor his blood pressure closely. 08/31/2023 Patient is evaluated today in follow up resting in bed. Continues to report significant nausea. recommending to continue with IV zofran. PT/OT recommending rehab at this time and 14/09 care, patient is out of rehab days. Social work recommending guardian at this time. BUN 16, creatinine 1.60. 09/01/2023 Patient evaluated today in follow up. Continues to report significant nausea with poor oral intake. He continues on IV zofran 4 mg every 6 hours and recommending to also add compazine. Abdominal xray done reveals no acute process. BUN 16, creatinine 1.56. 09/02/2023 Patient is currently awaiting guardianship hearing which will be on Wednesday. He does require subacute rehab however is out of rehab days through his health insurance. He is continued on his IV and oral medications and has 7 days left of his treatment as recommended by Dr. Liang. Patient continues to report significant nausea he is on a combination of IV Compazine and IV Zofran. Blood cell count is 7.0, hemoglobin 10.0, sodium 139, potassium 3.4, BUN of 17, creatinine 1.51. 09/03/2023 Patient evaluated today resting in bed. Patient continues with nausea and poor oral intake. He continues on course of IV and PO antibiotics. Done on September 07 with antibiotic therapy. APS following. Patient has legal guardianship meeting on Wednesday. Review of Systems Constitutional: Denied any fatigue denied any fever. Cardio vascular: denied any chest pain, palpitations Gastrointestinal: denied any nausea, vomiting, diarrhea Pulmonary: Denied any shortness of breath cough Neurologic denied any new focal deficits All inpatient medications were reviewed and appropriate changes in these medications as dictated in the interval history and assessment and plan. PHYSICAL EXAMINATION: GENERAL: The patient is alert and oriented x3, not in any acute distress. Well developed, well nourished. HEENT: Pupils are round and equally reacting to light. EOMI. No scleral icterus. No conjunctival pallor. Normocephalic, atraumatic. No pharyngeal erythema. No thyromegaly. CARDIOVASCULAR: S1 and S2 present. No murmurs, rubs, or gallops. PULMONARY: Chest is clear to auscultation, no wheezing or crackles. ABDOMEN: Soft, nontender, nondistended, normoactive bowel sounds. No palpable organomegaly. MUSCULOSKELETAL: No joint swelling or deformity. EXTREMITIES: No cyanosis, clubbing, or pedal edema. NEUROLOGICAL: Gross neurological examination did not reveal any focal deficits. SKIN: No rashes. Assesment and Plan Generalized weakness complicated by severe hypokalemia Severe hypokalemia secondary to diuretic torsemide resolved. Left heel Stage III diabetic foot ulcer with surrounding cellulitis. and right heel unstageable heel ulcer. Was on oral ceftin and oral flagyl for 2 week course as of 08/25/23 discharge. UTI, acute. Resolved Acute on chronic CHF with systolic dysfunction ejection fraction 30 to 35%. Resolved Uncontrolled hypertension. Improved Mild renal insufficiency prerenal from poor oral intake and continued diuresis. Elevated troponin level likely type II [place] CKD stage IV with baseline creatinine 1.8-2 Persistent atrial fibrillation status post ALEXIA and cardioversion on 08/09/2023 Generalized weakness and fatigue and unable to ambulate get out of bed. Coronary artery with history of CABG and stent placement Diabetes type 2 insulin-dependent Hypothyroidism Hyperlipidemia Prior history of smoking DVT prophylaxis patient is already on Eliquis Diabetic peripheral neuropathy Iron deficiency anemia GI prophylaxis Full Code Plan Social Work following for discharge planning would benefit from rehab however he is out of rehab days at this time. Recommending legal guardian and hearing is on wednesday. Continue antibiotics as previously recommended by [facility] wound care to heel ulcers with honey gel and boarded foam to the site. PT/OT consultation Continue pepcid and zofran. Added compazine. Encourage oral intake. Replace potassium Repeat blood work in the AM. The impression and plan of care has been dictated by Zoe Pradhan, Nurse Practitioner as directed. Dr. Elaina MD I have performed a history and physical examination and medical decision making of this patient, discussed the same with the dictator, and agree with the dictators assessment and plan as written, documented as a scribe. Based on total visit time, I have performed more than 50% of this visit. Objective - Vital Signs Vital signs: Vital Signs Temp 97.9 F 09/03/23 16:25 Pulse 61 09/03/23 16:25 Resp 18 09/03/23 16:25 BP 142/60 09/03/23 16:25 Pulse Ox 92 L 09/03/23 16:25 FiO2 Intake & Output 09/03/23 09/03/23 09/04/23 06:59 18:59 06:59 Intake Total 680 Output Total 200 500 Balance 480 -500 Intake: Oral 680 Output: Urine 200 500 Other: Voiding Method External Catheter External Catheter # Bowel Movements 1 1 - Labs CBC & Chem 7: 09/02/23 07:54 09/03/23 06:46 Labs: Abnormal Lab Results - Last 24 Hours (Table) 09/03/23 09/03/23 09/03/23 Range/Units 01:58 02:21 03:31 Carbon Dioxide (22-30) mmol/L Creatinine (0.66-1.25) mg/dL Glucose (74-99) mg/dL POC Glucose (mg/dL) 49 L* 60 L 127 H (70-110) mg/dL 09/03/23 Range/Units 06:46 Carbon Dioxide 36 H (22-30) mmol/L Creatinine 1.59 H (0.66-1.25) mg/dL Glucose 54 L (74-99) mg/dL POC Glucose (mg/dL) (70-110) mg/dL Assessment and Plan Time with Patient: Less than 30
[2023-09-04 01:59] LABS: Glucose,Whole Blood 61 mg/dL (70-110)
[2023-09-04 02:22] LABS: Glucose,Whole Blood 80 mg/dL (70-110)
[2023-09-04 06:04] LABS: Glucose,Whole Blood 65 mg/dL (70-110)
[2023-09-04 06:22] LABS: Glucose,Whole Blood 78 mg/dL (70-110)
[2023-09-04 07:50] LABS: Basophils # (A) 0.1 k/uL (0-0.2); Basophils % (A) 1 %; Eosinophils # (A) 0.2 k/uL (0-0.7); Eosinophils % (A) 4 %; HCT 32.6 % (39.0-53.0); HGB 10.1 gm/dL (13.0-17.5); Hypochromasia Slight; Lymphocytes # (A) 0.7 k/uL (1.0-4.8); Lymphocytes % (A) 10 %; MCHC 30.9 g/dL (31.0-37.0); MCV 90.6 fL (80.0-100.0); Mean Platelet Volume 8.1; Monocytes # (A) 0.7 k/uL (0-1.0); Monocytes % (A) 10 %; Neutrophils % (A) 72 %; Platelet Count 198 k/uL (150-450); RDW 15.3 % (11.5-15.5); WBC 6.9 k/uL (3.8-10.6)
[2023-09-04 07:55] LABS: African American GFR (CKD) 53 (>60 ml/min/1.73 sqM); Anion Gap 3 mmol/L; Blood Urea Nitrogen 14 mg/dL (9-20); Calcium 8.3 mg/dL (8.4-10.2); Carbon Dioxide 34 mmol/L (22-30); Chloride 103 mmol/L (98-107); Glucose 88 mg/dL (74-99); Non-African American GFR(CKD) 46 (>60 ml/min/1.73 sqM); Potassium 3.6 mmol/L (3.5-5.1); Sodium 140 mmol/L (137-145)
[2023-09-04] MEDS: POTASSIUM CHLORIDE ER 20 MEQ TAB.ER PO STA (09:33)
[2023-09-04 10:12] LABS: Glucose,Whole Blood 92 mg/dL (70-110)
[2023-09-04 11:43] LABS: Glucose,Whole Blood 83 mg/dL (70-110)
[2023-09-04 16:43] LABS: Glucose,Whole Blood 86 mg/dL (70-110)
[2023-09-04 21:37] LABS: Glucose,Whole Blood 81 mg/dL (70-110)
[2023-09-05 06:12] LABS: Glucose,Whole Blood 87 mg/dL (70-110)
--- NOTE | 2023-09-05 11:12 | P.CONS ---
History of Present Illness - Reason for Consult Consult date: 09/04/23 Heel ulcer, IV antibiotics Requesting physician: Zoe Pradhan - Chief Complaint Nonhealing wound to the heel x weeks - History of Present Illness Patient is a 67-year-old male with a past medical history significant for diabetes mellitus hypertension hyperlipidemia hypothyroidism history of diabetic foot infection osteomyelitis and currently has been dealing with the left heel nonhealing wound with secondary cellulitis with the patient was receiving IV Rocephin however his last admission was switched over to oral Ceftin on discharge however the patient was brought within 24 hours apparently seen by the visiting nurse who wanted the patient to go back to the hospital as the patient was too weak to assist in transferring to the wheelchair and cannot get out of his chair on his last admission multiple attempts were made with the patient to be placed in a prison however apparently the patient has used up all his days and he could not go to the prison patient subsequently has been admitted to the hospital about 10 days ago and the patient will be continued on her Rocephin infectious disease was asked today to reevaluate the patient regarding any need for further IV antibiotic therapy. Patient has been afebrile during this hospital stay patient has been tachycardic hypotensive or hypoxic and no need for supplemental oxygen patient did have white count of 6.9 creatinine is 1.55, patient denies having any headache or URI symptoms no chest pain shortness of breath or cough some nausea but no vomiting no abdominal pain or diarrhea denies pain to the left heel wound or any foul- smelling drainage Review of Systems Positive point and negatives has been mentioned in the HPI, complete review of systems was performed and all other systems are negative Past Medical History Past Medical History: Diabetes Mellitus, Hyperlipidemia, Hypertension, Thyroid Disorder History of Any Multi-Drug Resistant Organisms: None Reported Year Discovered:: 04/21/23 MDRO Source:: Left Foot Past Surgical History: Coronary Bypass/CABG, Heart Catheterization With Stent Additional Past Surgical History / Comment(s): left great and second toe removal. bilat carpal tunnel. neck fusion 5-6-7. triple bypass Past Anesthesia/Blood Transfusion Reactions: No Reported Reaction Additional Past Anesthesia/Blood Transfusion Reaction / Comm: no blood transfusion Date of Last Stent Placement:: 02/2002 Past Psychological History: No Psychological Hx Reported Smoking Status: Former smoker Past Alcohol Use History: None Reported Additional Past Alcohol Use History / Comment(s): quit smoking at 38 Past Drug Use History: None Reported - Past Family History Father History Unknown: Yes Mother History Unknown: Yes Medications and Allergies Home Medications Medication Instructions Recorded Confirmed Type Ferrous Sulfate [Iron (65 MG 325 mg PO DAILY 03/04/21 08/26/23 History Elemental)] Hydroxychloroquine Sulfate 200 mg PO BID 03/04/21 08/26/23 History [Plaquenil] Levothyroxine Sodium [Synthroid] 100 mcg PO DAILY@0600 03/04/21 08/26/23 History Meclizine [Antivert] 12.5 mg PO TID PRN 30 Days #90 03/13/21 08/26/23 Rx tablet Balsalazide Disodium [Colazal] 2,250 mg PO BID 03/17/23 08/26/23 History Loratadine [Claritin] 10 mg PO DAILY 03/17/23 08/26/23 History Apixaban [Eliquis] 5 mg PO BID #60 tab 06/11/23 08/26/23 Rx Atorvastatin [Lipitor] 10 mg PO HS 08/01/23 08/26/23 History Insulin Lispro See Protocol SQ TID-W/MEALS 08/01/23 08/26/23 History Melatonin 10 mg PO HS 08/01/23 08/26/23 History Ondansetron [Zofran] 4 mg PO TID PRN 08/01/23 08/26/23 History Acetaminophen Tab [Tylenol] 650 mg PO Q6HR PRN tab 08/11/23 08/26/23 Rx Amiodarone [Cordarone] 200 mg PO DAILY #30 tab 08/11/23 08/26/23 Rx Aspirin 81 mg PO DAILY #30 tab 08/11/23 08/26/23 Rx Losartan [Cozaar] 50 mg PO BID #60 tab 08/11/23 08/26/23 Rx Torsemide [Demadex] 10 mg PO DAILY 30 Days #15 tab 08/11/23 08/26/23 Rx hydrALAZINE HCL [Apresoline] 50 mg PO TID #90 tab 08/11/23 08/26/23 Rx Gabapentin [Neurontin] 100 mg PO Q8H 08/12/23 08/26/23 History Dapagliflozin Propanediol [Farxiga] 10 mg PO DAILY #30 tab 08/25/23 08/26/23 Rx Famotidine [Pepcid] 20 mg PO BID 30 Days #60 tablet 08/25/23 08/26/23 Rx HYDROcodone/APAP 5-325MG [[place] 1 tab PO HS PRN 5 Days #5 tab 08/25/23 08/26/23 Rx 5-325] Insulin Detemir (Levemir) [Levemir] 8 unit SQ HS #10 gm 08/25/23 08/26/23 Rx Isosorbide Mononitrate ER [Imdur] 30 mg PO DAILY #30 tab 08/25/23 08/26/23 Rx amLODIPine [Norvasc] 10 mg PO DAILY #30 tab 08/25/23 08/26/23 Rx carvediloL [Coreg] 6.25 mg PO BID 30 Days #60 tablet 08/25/23 08/26/23 Rx cefUROXime axetiL [Ceftin] 500 mg PO BID #28 tab 08/25/23 08/26/23 Rx metroNIDAZOLE [Flagyl] 500 mg PO TID #42 tab 08/25/23 08/26/23 Rx Allergies Allergy/AdvReac Type Severity Reaction Status Date / Time Penicillins Allergy Unknown Verified 08/26/23 19:51 Childhood Physical Exam Vitals: Vital Signs Temp Pulse Resp BP Pulse Ox 09/04/23 11:01 97.3 F L 55 L 18 131/78 93 L 09/04/23 08:15 97.8 F 60 18 159/76 94 L 09/04/23 03:55 60 18 116/72 95 09/03/23 23:45 59 L 18 119/52 96 09/03/23 19:45 97.8 F 63 18 147/66 93 L 09/03/23 16:25 97.9 F 61 18 142/60 92 L Intake and Output 09/03/23 09/04/23 09/04/23 22:59 06:59 14:59 Intake Total 232 Output Total 300 0 Balance -300 232 Intake: Oral 232 Output: Urine 300 0 Other: Voiding Method External Catheter External Catheter External Catheter # Bowel Movements 1 1 GENERAL DESCRIPTION: Elderly male lying in bed, no distress. No tachypnea or accessory muscle of respiration use. HEENT: Shows Pallor , no scleral icterus. Oral mucous membrane is dry. No pharyngeal erythema or thrush NECK: Trachea central, no thyromegaly. LUNGS: Unlabored breathing. Clear to auscultation anteriorly. No wheeze or crackle. HEART: S1, S2, regular rate and rhythm. No loud murmur ABDOMEN: Soft, no tenderness , guarding or rigidity, no organomegaly EXTREMITIES: Patient did have a stage III pressure ulcer to the left heel area with some necrotic tissue and slough surrounding redness has decreased patient also have a blood blister to the right heel likely a stage I pressure ulcer SKIN: No rash, no masses palpable. NEUROLOGICAL: The patient is awake, alert, oriented x3, mood and affect normal. Results CBC & Chem 7: 09/04/23 06:39 09/04/23 06:39 Labs: Abnormal Lab Results - Last 24 Hours (Table) 09/04/23 09/04/23 09/04/23 Range/Units 01:57 06:03 06:39 RBC 3.60 L (4.30-5.90) m/uL Hgb 10.1 L (13.0-17.5) gm/dL Hct 32.6 L (39.0-53.0) % MCHC 30.9 L (31.0-37.0) g/dL Lymphocytes # 0.7 L (1.0-4.8) k/uL Carbon Dioxide (22-30) mmol/L Creatinine (0.66-1.25) mg/dL POC Glucose (mg/dL) 61 L 65 L (70-110) mg/dL Calcium (8.4-10.2) mg/dL 09/04/23 Range/Units 06:39 RBC (4.30-5.90) m/uL Hgb (13.0-17.5) gm/dL Hct (39.0-53.0) % MCHC (31.0-37.0) g/dL Lymphocytes # (1.0-4.8) k/uL Carbon Dioxide 34 H (22-30) mmol/L Creatinine 1.55 H (0.66-1.25) mg/dL POC Glucose (mg/dL) (70-110) mg/dL Calcium 8.3 L (8.4-10.2) mg/dL Assessment and Plan (1) Diabetic foot infection Current Visit: Yes Status: Acute Code(s): E11.628 - TYPE 2 DIABETES MELLITUS WITH OTHER SKIN COMPLICATIONS; L08.9 - LOCAL INFECTION OF THE SKIN AND SUBCUTANEOUS TISSUE, UNSP SNOMED Code(s): 492631811 (2) Penicillin allergy Current Visit: No Status: Acute Code(s): Z88.0 - ALLERGY STATUS TO PENICILLIN SNOMED Code(s): 19648556 (3) Pressure ulcer of left heel, stage 3 Current Visit: No Status: Acute Code(s): L89.623 - PRESSURE ULCER OF LEFT HEEL, STAGE 3 SNOMED Code(s): 77085188258795 Plan: 1patient with a chronic nonhealing wound to the left heel stage III pressure ulcer with secondary cellulitis on one of his admission 08/02/2023 patient culture positive for Proteus mirabilis with the patient has been treated with IV Rocephin patient did have overall improvement to the left heel area however did have an area of skin necrosis that may need debrided further. 2patient also developed a pressure ulcer to the right heel with a big blister which has not yet ruptured and no surrounding cellulitis 3patient also have a wound on the medial aspect of the right foot at the base of the first metatarsal but no significant surrounding redness. 4recommend vascular surgery evaluation for further debridement of the left heel wound. 5keep the right heel of the pressure to prevent further worsening of his right heel pressure ulcer. 6continue with Rocephin 2 g daily while inpatient. We will follow on clinical condition and cultures to further adjust medication if needed Thank you for this consultation we will follow the patient along with you Dictation was produced using [employer] dictation software. please excuse any grammatical, word or spelling errors. Time with Patient: Greater than 30
[2023-09-05 11:22] LABS: Glucose,Whole Blood 99 mg/dL (70-110)
--- NOTE | 2023-09-05 12:32 | P.PN ---
Subjective Progress Note Date: 09/05/23 Principal diagnosis: Reason for follow-up is left heel infected pressure ulcer Patient is a 67-year-old male with a past medical history significant for diabetes mellitus hypertension hyperlipidemia hypothyroidism history of diabetic foot infection osteomyelitis and currently has been dealing with the left heel nonhealing wound with secondary cellulitis being readmitted to hospital for unable to take care of himself at home and difficulty getting around. On today's evaluation that is 09/05/2023, Patient is afebrile this morning and denies any chills, patient mention breathing comfortably and is currently on room air, patient denies any chest pain occasional cough patient denies any abdominal pain no diarrhea did have some nausea but no vomiting, denies pain to bilateral heel wounds. No new labs were obtained today Objective - Vital Signs Vital signs: Vital Signs Temp 97.4 F L 09/05/23 07:25 Pulse 65 09/05/23 07:25 Resp 16 09/05/23 07:25 BP 151/70 09/05/23 07:25 Pulse Ox 94 L 09/05/23 07:25 FiO2 Intake & Output 09/04/23 09/05/23 09/05/23 18:59 06:59 18:59 Intake Total 232 240 Output Total 0 450 Balance 232 -210 Intake: Oral 232 Other 240 Output: Urine 0 450 Other: Voiding Method External Catheter External Catheter External Catheter # Bowel Movements 1 - Exam GENERAL DESCRIPTION: An elderly male lying in bed in no distress RESPIRATORY SYSTEM: Unlabored breathing , decreased breath sounds at bases HEART: S1 S2 regular rate and rhythm , ABDOMEN: Soft , no tenderness EXTREMITIES: Bilateral heel wounds are currently dressed - Labs CBC & Chem 7: 09/04/23 06:39 09/04/23 06:39 Assessment and Plan (1) Diabetic foot infection Current Visit: Yes Status: Acute Code(s): E11.628 - TYPE 2 DIABETES MELLITUS WITH OTHER SKIN COMPLICATIONS; L08.9 - LOCAL INFECTION OF THE SKIN AND SUBCUTANEOUS TISSUE, UNSP SNOMED Code(s): 187120326 (2) Penicillin allergy Current Visit: No Status: Acute Code(s): Z88.0 - ALLERGY STATUS TO PENICILLIN SNOMED Code(s): 43757641 (3) Pressure ulcer of left heel, stage 3 Current Visit: No Status: Acute Code(s): L89.623 - PRESSURE ULCER OF LEFT HEEL, STAGE 3 SNOMED Code(s): 48858615516634 Plan: 1patient with a chronic nonhealing wound to the left heel stage III pressure ulcer with secondary cellulitis on one of his admission 08/02/2023 patient culture positive for Proteus mirabilis with the patient has been treated with IV Rocephin patient did have overall improvement to the left heel area however did have an area of skin necrosis that may need debrided further. 2patient also developed a pressure ulcer to the right heel with a big blister which has not yet ruptured and no surrounding cellulitis 3patient also have a wound on the medial aspect of the right foot at the base of the first metatarsal but no significant surrounding redness. 4keep the right heel of the pressure to prevent further worsening of his right heel pressure ulcer. 5patient benefit from surgical debridement of the left heel pressure ulcer vascular surgery consulted, continue with Rocephin 2 g daily while inpatient. Dictation was produced using [employer] dictation software. please excuse any grammatical, word or spelling errors. Time with Patient: Less than 30
--- NOTE | 2023-09-05 16:31 | P.PN ---
Subjective Progress Note Date: 09/04/23 Patient was evaluated today resting in bed. He is reporting significant nausea most likely due to the antibiotics he is on. Patient states he was barely able to get up with physical therapy today secondary to his nausea. Apparently he has no more days at the rehab and social work is following up on this. Is currently on a 2-week course of oral Ceftin and oral Flagyl from his discharge on August 24. Changed IV Lasix to oral Lasix and monitor his blood pressure closely. 08/31/2023 Patient is evaluated today in follow up resting in bed. Continues to report significant nausea. recommending to continue with IV zofran. PT/OT recommending rehab at this time and 14/09 care, patient is out of rehab days. Social work recommending guardian at this time. BUN 16, creatinine 1.60. 09/01/2023 Patient evaluated today in follow up. Continues to report significant nausea with poor oral intake. He continues on IV zofran 4 mg every 6 hours and recommending to also add compazine. Abdominal xray done reveals no acute process. BUN 16, creatinine 1.56. 09/02/2023 Patient is currently awaiting guardianship hearing which will be on Wednesday. He does require subacute rehab however is out of rehab days through his health insurance. He is continued on his IV and oral medications and has 7 days left of his treatment as recommended by Dr. Liang. Patient continues to report significant nausea he is on a combination of IV Compazine and IV Zofran. Blood cell count is 7.0, hemoglobin 10.0, sodium 139, potassium 3.4, BUN of 17, creatinine 1.51. 09/03/2023 Patient evaluated today resting in bed. Patient continues with nausea and poor oral intake. He continues on course of IV and PO antibiotics. Done on September 07 with antibiotic therapy. APS following. Patient has legal guardianship meeting on Wednesday. 09/04/2023 Patient is evaluated today on the medical floor in follow-up. Patient continues to report nausea and poor oral intake states that the food is not appetizing and he does not wish to eat it. He is encouraged to try what he wants to have family bring in food if possible. He continues on a course of IV and p.o. antibiotics as previously recommended in his prior discharge. This is for the l eft heel unstageable ulcer. Patient has been following along with Dr. Liang for this and we did ask for consultation for him to follow-up with this patient regarding the heel wound and antibiotic care. Pending guardianship hearing on Wednesday. Continue to monitor. Review of Systems Constitutional: Denied any fatigue denied any fever. Cardio vascular: denied any chest pain, palpitations Gastrointestinal: denied any nausea, vomiting, diarrhea Pulmonary: Denied any shortness of breath cough Neurologic denied any new focal deficits All inpatient medications were reviewed and appropriate changes in these medications as dictated in the interval history and assessment and plan. PHYSICAL EXAMINATION: GENERAL: The patient is alert and oriented x3, not in any acute distress. Well developed, well nourished. HEENT: Pupils are round and equally reacting to light. EOMI. No scleral icterus. No conjunctival pallor. Normocephalic, atraumatic. No pharyngeal erythema. No thyromegaly. CARDIOVASCULAR: S1 and S2 present. No murmurs, rubs, or gallops. PULMONARY: Chest is clear to auscultation, no wheezing or crackles. ABDOMEN: Soft, nontender, nondistended, normoactive bowel sounds. No palpable organomegaly. MUSCULOSKELETAL: No joint swelling or deformity. EXTREMITIES: No cyanosis, clubbing, or pedal edema. NEUROLOGICAL: Gross neurological examination did not reveal any focal deficits. SKIN: No rashes. Assesment and Plan Generalized weakness complicated by severe hypokalemia Severe hypokalemia secondary to diuretic torsemide resolved. Left heel Stage III diabetic foot ulcer with surrounding cellulitis. and right heel unstageable heel ulcer. Was on oral ceftin and oral flagyl for 2 week course as of 08/25/23 discharge. UTI, acute. Resolved Acute on chronic CHF with systolic dysfunction ejection fraction 30 to 35%. Resolved Uncontrolled hypertension. Improved Mild renal insufficiency prerenal from poor oral intake and continued diuresis. Elevated troponin level likely type II WI CKD stage IV with baseline creatinine 1.8-2 Persistent atrial fibrillation status post ALEXIA and cardioversion on 08/09/2023 Generalized weakness and fatigue and unable to ambulate get out of bed. Coronary artery with history of CABG and stent placement Diabetes type 2 insulin-dependent Hypothyroidism Hyperlipidemia Prior history of smoking DVT prophylaxis patient is already on Eliquis Diabetic peripheral neuropathy Iron deficiency anemia Depression GI prophylaxis Full Code Plan Social Work following for discharge planning would benefit from rehab however he is out of rehab days at this time. Recommending legal guardian and hearing is on wednesday. Patient with poor appetite and mood appears to have a flat affect would benefit from antidepressant and celexa has been added. Discussed with patient an attempt to increase oral intake suspect nausea is a combination of poor oral intake and medication affect. Supportive care in place. Continue antibiotics as previously recommended by ID Local wound care to heel ulcers with honey gel and boarded foam to the site. PT/OT consultation Continue pepcid and zofran. Added compazine. Encourage oral intake. Replace potassium Repeat blood work in the AM. The impression and plan of care has been dictated by Nurse Ellen Moore as directed. Dr. Elaina MD I have performed a history and physical examination and medical decision making of this patient, discussed the same with the dictator, and agree with the dict ators assessment and plan as written, documented as a scribe. Based on total visit time, I have performed more than 50% of this visit. Objective - Vital Signs Vital signs: Vital Signs Temp 98.0 F 09/04/23 14:37 Pulse 59 L 09/04/23 14:37 Resp 16 09/04/23 14:37 BP 162/72 09/04/23 14:37 Pulse Ox 94 L 09/04/23 14:37 FiO2 Intake & Output 09/03/23 09/04/23 09/04/23 18:59 06:59 18:59 Intake Total 232 Output Total 500 0 Balance -500 232 Intake: Oral 232 Output: Urine 500 0 Other: Voiding Method External Catheter External Catheter External Catheter # Bowel Movements 1 1 1 - Labs CBC & Chem 7: 09/04/23 06:39 09/04/23 06:39 Labs: Abnormal Lab Results - Last 24 Hours (Table) 09/04/23 09/04/23 09/04/23 Range/Units 01:57 06:03 06:39 RBC 3.60 L (4.30-5.90) m/uL Hgb 10.1 L (13.0-17.5) gm/dL Hct 32.6 L (39.0-53.0) % MCHC 30.9 L (31.0-37.0) g/dL Lymphocytes # 0.7 L (1.0-4.8) k/uL Carbon Dioxide (22-30) mmol/L Creatinine (0.66-1.25) mg/dL POC Glucose (mg/dL) 61 L 65 L (70-110) mg/dL Calcium (8.4-10.2) mg/dL 09/04/23 Range/Units 06:39 RBC (4.30-5.90) m/uL Hgb (13.0-17.5) gm/dL Hct (39.0-53.0) % MCHC (31.0-37.0) g/dL Lymphocytes # (1.0-4.8) k/uL Carbon Dioxide 34 H (22-30) mmol/L Creatinine 1.55 H (0.66-1.25) mg/dL POC Glucose (mg/dL) (70-110) mg/dL Calcium 8.3 L (8.4-10.2) mg/dL
--- NOTE | 2023-09-05 16:33 | P.PN ---
Subjective Progress Note Date: 09/05/23 Patient was evaluated today resting in bed. He is reporting significant nausea most likely due to the antibiotics he is on. Patient states he was barely able to get up with physical therapy today secondary to his nausea. Apparently he has no more days at the rehab and social work is following up on this. Is currently on a 2-week course of oral Ceftin and oral Flagyl from his discharge on August 24. Changed IV Lasix to oral Lasix and monitor his blood pressure closely. 08/31/2023 Patient is evaluated today in follow up resting in bed. Continues to report significant nausea. recommending to continue with IV zofran. PT/OT recommending rehab at this time and 14/09 care, patient is out of rehab days. Social work recommending guardian at this time. BUN 16, creatinine 1.60. 09/01/2023 Patient evaluated today in follow up. Continues to report significant nausea with poor oral intake. He continues on IV zofran 4 mg every 6 hours and recommending to also add compazine. Abdominal xray done reveals no acute process. BUN 16, creatinine 1.56. 09/02/2023 Patient is currently awaiting guardianship hearing which will be on Wednesday. He does require subacute rehab however is out of rehab days through his health insurance. He is continued on his IV and oral medications and has 7 days left of his treatment as recommended by Dr. Liang. Patient continues to report significant nausea he is on a combination of IV Compazine and IV Zofran. Blood cell count is 7.0, hemoglobin 10.0, sodium 139, potassium 3.4, BUN of 17, creatinine 1.51. 09/03/2023 Patient evaluated today resting in bed. Patient continues with nausea and poor oral intake. He continues on course of IV and PO antibiotics. Done on September 07 with antibiotic therapy. APS following. Patient has legal guardianship meeting on Wednesday. 09/04/2023 Patient is evaluated today on the medical floor in follow-up. Patient continues to report nausea and poor oral intake states that the food is not appetizing and he does not wish to eat it. He is encouraged to try what he wants to have family bring in food if possible. He continues on a course of IV and p.o. antibiotics as previously recommended in his prior discharge. This is for the l eft heel unstageable ulcer. Patient has been following along with Dr. Liang for this and we did ask for consultation for him to follow-up with this patient regarding the heel wound and antibiotic care. Pending guardianship hearing on Wednesday. Continue to monitor. 09/05/2023 Patient is evaluated today in follow up patient continues to rest in bed and encouraged to get up with assistance. He does have a pressure reduction shoe at home for the left food. Patient continues on course of IV ceftriaxone and po flagyl from prior admission. He has local wound care in place for the left heel. He has a guardian ship hearing on wednesday. Review of Systems Constitutional: Denied any fatigue denied any fever. Cardio vascular: denied any chest pain, palpitations Gastrointestinal: denied any nausea, vomiting, diarrhea Pulmonary: Denied any shortness of breath cough Neurologic denied any new focal deficits All inpatient medications were reviewed and appropriate changes in these medications as dictated in the interval history and assessment and plan. PHYSICAL EXAMINATION: GENERAL: The patient is alert and oriented x3, not in any acute distress. Well developed, well nourished. HEENT: Pupils are round and equally reacting to light. EOMI. No scleral icterus. No conjunctival pallor. Normocephalic, atraumatic. No pharyngeal erythema. No thyromegaly. CARDIOVASCULAR: S1 and S2 present. No murmurs, rubs, or gallops. PULMONARY: Chest is clear to auscultation, no wheezing or crackles. ABDOMEN: Soft, nontender, nondistended, normoactive bowel sounds. No palpable organomegaly. MUSCULOSKELETAL: No joint swelling or deformity. EXTREMITIES: No cyanosis, clubbing, or pedal edema. NEUROLOGICAL: Gross neurological examination did not reveal any focal deficits. SKIN: No rashes. Assesment and Plan Generalized weakness complicated by severe hypokalemia Severe hypokalemia secondary to diuretic torsemide resolved. Left heel Stage III diabetic foot ulcer with surrounding cellulitis. and right heel unstageable heel ulcer. Was on oral ceftin and oral flagyl for 2 week course as of 08/25/23 discharge. UTI, acute. Resolved Acute on chronic CHF with systolic dysfunction ejection fraction 30 to 35%. Resolved Uncontrolled hypertension. Improved Mild renal insufficiency prerenal from poor oral intake and continued diuresis. Elevated troponin level likely type II DC CKD stage IV with baseline creatinine 1.8-2 Persistent atrial fibrillation status post ALEXIA and cardioversion on 08/09/2023 Generalized weakness and fatigue and unable to ambulate get out of bed. Coronary artery with history of CABG and stent placement Diabetes type 2 insulin-dependent Hypothyroidism Hyperlipidemia Prior history of smoking DVT prophylaxis patient is already on Eliquis Diabetic peripheral neuropathy Iron deficiency anemia Depression GI prophylaxis Full Code Plan Social Work following for discharge planning would benefit from rehab however he is out of rehab days at this time. Recommending legal guardian and hearing is on wednesday. Patient with poor appetite and mood appears to have a flat affect would benefit from antidepressant and celexa has been added. Discussed with patient an attempt to increase oral intake suspect nausea is a combination of poor oral intake and medication affect. Supportive care in place. Continue antibiotics as previously recommended by ID Local wound care to heel ulcers with honey gel and boarded foam to the site. PT/OT consultation Continue pepcid and zofran. Added compazine. Encourage oral intake. Replace potassium Repeat blood work in the AM. The impression and plan of care has been dictated by Zoe Pradhan, Nurse Practitioner as directed. Dr. Elaina MD I have performed a history and physical examination and medical decision making of this patient, discussed the same with the dictator, and agree with the dictators assessment and plan as written, documented as a scribe. Based on total visit time, I have performed more than 50% of this visit. Objective - Vital Signs Vital signs: Vital Signs Temp 97.4 F L 09/05/23 07:25 Pulse 65 09/05/23 07:25 Resp 16 09/05/23 07:25 BP 151/70 09/05/23 07:25 Pulse Ox 94 L 09/05/23 07:25 FiO2 Intake & Output 09/04/23 09/05/23 09/05/23 18:59 06:59 18:59 Intake Total 232 240 Output Total 0 450 Balance 232 -210 Intake: Oral 232 Other 240 Output: Urine 0 450 Other: Voiding Method External Catheter External Catheter # Bowel Movements 1 - Labs CBC & Chem 7: 09/04/23 06:39 09/04/23 06:39 Assessment and Plan Time with Patient: Less than 30
[2023-09-05 16:36] LABS: Glucose,Whole Blood 103 mg/dL (70-110)
[2023-09-05 21:36] LABS: Glucose,Whole Blood 81 mg/dL (70-110)
[2023-09-06 05:19] LABS: Glucose,Whole Blood 107 mg/dL (70-110)
[2023-09-06 09:27] LABS: BUN/Creat Ratio 7.94 Ratio (12.00-20.00); Blood Urea Nitrogen 12.7 mg/dL (9.0-27.0); Calcium 8.3 mg/dL (8.7-10.3); Carbon Dioxide 27.9 mmol/L (21.6-31.8); Chloride 103 mmol/L (96-109); Glucose 80 mg/dL (70-110); Potassium 3.7 mmol/L (3.5-5.5); Sodium 144 mmol/L (135-145)
[2023-09-06 11:34] LABS: Glucose,Whole Blood 84 mg/dL (70-110)
--- NOTE | 2023-09-06 14:24 | P.PN ---
Subjective Progress Note Date: 09/06/23 Patient was evaluated today resting in bed. He is reporting significant nausea most likely due to the antibiotics he is on. Patient states he was barely able to get up with physical therapy today secondary to his nausea. Apparently he has no more days at the rehab and social work is following up on this. Is currently on a 2-week course of oral Ceftin and oral Flagyl from his discharge on August 24. Changed IV Lasix to oral Lasix and monitor his blood pressure closely. 08/31/2023 Patient is evaluated today in follow up resting in bed. Continues to report significant nausea. recommending to continue with IV zofran. PT/OT recommending rehab at this time and 14/09 care, patient is out of rehab days. Social work recommending guardian at this time. BUN 16, creatinine 1.60. 09/01/2023 Patient evaluated today in follow up. Continues to report significant nausea with poor oral intake. He continues on IV zofran 4 mg every 6 hours and recommending to also add compazine. Abdominal xray done reveals no acute process. BUN 16, creatinine 1.56. 09/02/2023 Patient is currently awaiting guardianship hearing which will be on Wednesday. He does require subacute rehab however is out of rehab days through his health insurance. He is continued on his IV and oral medications and has 7 days left of his treatment as recommended by Dr. Liang. Patient continues to report significant nausea he is on a combination of IV Compazine and IV Zofran. Blood cell count is 7.0, hemoglobin 10.0, sodium 139, potassium 3.4, BUN of 17, creatinine 1.51. 09/03/2023 Patient evaluated today resting in bed. Patient continues with nausea and poor oral intake. He continues on course of IV and PO antibiotics. Done on September 07 with antibiotic therapy. APS following. Patient has legal guardianship meeting on Wednesday. 09/04/2023 Patient is evaluated today on the medical floor in follow-up. Patient continues to report nausea and poor oral intake states that the food is not appetizing and he does not wish to eat it. He is encouraged to try what he wants to have family bring in food if possible. He continues on a course of IV and p.o. antibiotics as previously recommended in his prior discharge. This is for the l eft heel unstageable ulcer. Patient has been following along with Dr. Liang for this and we did ask for consultation for him to follow-up with this patient regarding the heel wound and antibiotic care. Pending guardianship hearing on Wednesday. Continue to monitor. 09/05/2023 Patient is evaluated today in follow up patient continues to rest in bed and encouraged to get up with assistance. He does have a pressure reduction shoe at home for the left food. Patient continues on course of IV ceftriaxone and po flagyl from prior admission. He has local wound care in place for the left heel. He has a guardian ship hearing on wednesday. 09/06/2023 Evaluated in follow-up on the medical floor. Patient continues to report significant nausea however does state that it has improved since admission. He continues on Zofran and Compazine as needed. Patient is tolerating increased diet. He continues on a course of IV ceftriaxone and oral metronidazole as recommended from his prior discharge. Infectious disease has evaluated this patient and recommending further debridement of his left heel ulcer and vascular services was consulted. Review of Systems Constitutional: Denied any fatigue denied any fever. Cardio vascular: denied any chest pain, palpitations Gastrointestinal: denied any nausea, vomiting, diarrhea Pulmonary: Denied any shortness of breath cough Neurologic denied any new focal deficits All inpatient medications were reviewed and appropriate changes in these medications as dictated in the interval history and assessment and plan. PHYSICAL EXAMINATION: GENERAL: The patient is alert and oriented x3, not in any acute distress. Well developed, well nourished. HEENT: Pupils are round and equally reacting to light. EOMI. No scleral icterus. No conjunctival pallor. Normocephalic, atraumatic. No pharyngeal erythema. No thyromegaly. CARDIOVASCULAR: S1 and S2 present. No murmurs, rubs, or gallops. PULMONARY: Chest is clear to auscultation, no wheezing or crackles. ABDOMEN: Soft, nontender, nondistended, normoactive bowel sounds. No palpable organomegaly. MUSCULOSKELETAL: No joint swelling or deformity. EXTREMITIES: No cyanosis, clubbing, or pedal edema. NEUROLOGICAL: Gross neurological examination did not reveal any focal deficits. SKIN: No rashes. Assesment and Plan Generalized weakness complicated by severe hypokalemia Severe hypokalemia secondary to diuretic torsemide resolved. Left heel Stage III diabetic foot ulcer with surrounding cellulitis. and right heel unstageable heel ulcer. Was on oral ceftin and oral flagyl for 2 week course as of 08/25/23 discharge. UTI, acute. Resolved Acute on chronic CHF with systolic dysfunction ejection fraction 30 to 35%. Resolved Uncontrolled hypertension. Improved Mild renal insufficiency prerenal from poor oral intake and continued diuresis. Elevated troponin level likely type II NC CKD stage IV with baseline creatinine 1.8-2 Persistent atrial fibrillation status post ALEXIA and cardioversion on 08/09/2023 Generalized weakness and fatigue and unable to ambulate get out of bed. Coronary artery with history of CABG and stent placement Diabetes type 2 insulin-dependent Hypothyroidism Hyperlipidemia Prior history of smoking DVT prophylaxis patient is already on Eliquis Diabetic peripheral neuropathy Iron deficiency anemia Depression GI prophylaxis Full Code Plan Social Work following for discharge planning would benefit from rehab however he is out of rehab days at this time. Recommending legal guardian and hearing is on wednesday. Patient with poor appetite and mood appears to have a flat affect would benefit from antidepressant and celexa has been added. Discussed with patient an attempt to increase oral intake suspect nausea is a combination of poor oral intake and medication affect. Supportive care in place. Continue antibiotics as previously recommended by ID Local wound care to heel ulcers with honey gel and boarded foam to the site. Vascular has been consulted for surgical debridement of the left heel ulcer PT/OT consultation Continue pepcid and zofran. Added compazine. Encourage oral intake. Repeat blood work in the AM. The impression and plan of care has been dictated by Zoe Pradhan, Nurse Practitioner as directed. Dr. Elaina MD I have performed a history and physical examination and medical decision making of this patient, discussed the same with the dictator, and agree with the dictators assessment and plan as written, documented as a scribe. Based on total visit time, I have performed more than 50% of this visit. Objective - Vital Signs Vital signs: Vital Signs Temp 97.6 F 09/06/23 07:00 Pulse 63 09/06/23 07:00 Resp 16 09/06/23 07:00 BP 143/82 09/06/23 07:00 Pulse Ox 93 L 09/06/23 07:00 FiO2 Intake & Output 09/05/23 09/06/23 09/06/23 18:59 06:59 18:59 Intake Total 240 Balance 240 Intake: Oral 240 Other: Voiding Method External Catheter External Catheter # Voids 1 # Bowel Movements 1 1 - Labs CBC & Chem 7: 09/04/23 06:39 09/06/23 03:47 Labs: Abnormal Lab Results - Last 24 Hours (Table) 09/06/23 Range/Units 03:47 Anion Gap 13.10 H (4.00-12.00) mmol/L Creatinine 1.6 H (0.6-1.5) mg/dL Est GFR (CKD-EPI) 47 L (>=60) BUN/Creatinine Ratio 7.94 L (12.00-20.00) Ratio Calcium 8.3 L (8.7-10.3) mg/dL Assessment and Plan Time with Patient: Less than 30
[2023-09-06 16:15] LABS: Glucose,Whole Blood 93 mg/dL (70-110)
--- NOTE | 2023-09-06 17:34 | P.PN ---
Subjective Progress Note Date: 09/06/23 Principal diagnosis: Reason for follow-up is left heel infected pressure ulcer Patient is a 67-year-old male with a past medical history significant for diabetes mellitus hypertension hyperlipidemia hypothyroidism history of diabetic foot infection osteomyelitis and currently has been dealing with the left heel nonhealing wound with secondary cellulitis being readmitted to hospital for unable to take care of himself at home and difficulty getting around. On today's evaluation that is 09/06/2023,the patient denies any fever or any chills, patient is breathing comfortably on room air, the patient denies chest pain shortness of breath and no significant cough, patient denies abdominal pain complaining of some nausea but no vomiting no diarrhea and denies pain to bilateral feet. Patient creatinine 1.6 Objective - Vital Signs Vital signs: Vital Signs Temp 97.6 F 09/06/23 07:00 Pulse 63 09/06/23 07:00 Resp 16 09/06/23 07:00 BP 143/82 09/06/23 07:00 Pulse Ox 93 L 09/06/23 07:00 FiO2 Intake & Output 09/05/23 09/06/23 09/06/23 18:59 06:59 18:59 Intake Total 240 Balance 240 Intake: Oral 240 Other: Voiding Method External Catheter External Catheter # Voids 1 # Bowel Movements 1 1 - Exam GENERAL DESCRIPTION: An elderly male lying in bed in no distress RESPIRATORY SYSTEM: Unlabored breathing , decreased breath sounds at bases HEART: S1 S2 regular rate and rhythm , ABDOMEN: Soft , no tenderness EXTREMITIES: Bilateral heel wounds are currently dressed - Labs CBC & Chem 7: 09/04/23 06:39 09/06/23 03:47 Labs: Abnormal Lab Results - Last 24 Hours (Table) 09/06/23 Range/Units 03:47 Anion Gap 13.10 H (4.00-12.00) mmol/L Creatinine 1.6 H (0.6-1.5) mg/dL Est GFR (CKD-EPI) 47 L (>=60) BUN/Creatinine Ratio 7.94 L (12.00-20.00) Ratio Calcium 8.3 L (8.7-10.3) mg/dL Assessment and Plan (1) Diabetic foot infection Current Visit: Yes Status: Acute Code(s): E11.628 - TYPE 2 DIABETES MELLITUS WITH OTHER SKIN COMPLICATIONS; L08.9 - LOCAL INFECTION OF THE SKIN AND SUBCUTANEOUS TISSUE, UNSP SNOMED Code(s): 654412826 (2) Penicillin allergy Current Visit: No Status: Acute Code(s): Z88.0 - ALLERGY STATUS TO PENICILLIN SNOMED Code(s): 36137107 (3) Pressure ulcer of left heel, stage 3 Current Visit: No Status: Acute Code(s): L89.623 - PRESSURE ULCER OF LEFT HEEL, STAGE 3 SNOMED Code(s): 95068438346227 Plan: 1patient with a chronic nonhealing wound to the left heel stage III pressure ulcer with secondary cellulitis on one of his admission 08/02/2023 patient culture positive for Proteus mirabilis with the patient has been treated with IV Rocephin patient did have overall improvement to the left heel area however did have an area of skin necrosis that may need debrided further. 2patient also developed a pressure ulcer to the right heel with a big blister which has not yet ruptured and no surrounding cellulitis 3patient also have a wound on the medial aspect of the right foot at the base of the first metatarsal but no significant surrounding redness. 4keep the right heel of the pressure to prevent further worsening of his right heel pressure ulcer. 5await vascular evaluation and possible surgical debridement of the left heel pressure ulcer and continue with Rocephin 2 g daily while inpatient. Dictation was produced using [employer] dictation software. please excuse any grammatical, word or spelling errors. Time with Patient: Less than 30
[2023-09-06 21:04] LABS: Glucose,Whole Blood 106 mg/dL (70-110)
[2023-09-07 06:14] LABS: Glucose,Whole Blood 91 mg/dL (70-110)
[2023-09-07 08:59] LABS: Basophils # (A) 0.05 X 10*3/uL (0.00-0.10); Basophils % (A) 0.9 %; Eosinophils # (A) 0.24 X 10*3/uL (0.04-0.35); Eosinophils % (A) 4.1 %; HCT 33.1 % (39.6-50.0); HGB 10.2 g/dL (13.0-17.0); Lymphocytes # (A) 0.69 X 10*3/uL (0.90-5.00); Lymphocytes % (A) 11.8 %; MCH 27.5 pg (27.0-32.0); MCHC 30.8 g/dL (32.0-37.0); MCV 89.2 FL (80.0-97.0); Mean Platelet Volume 11.2 FL (9.5-12.2); Monocytes # (A) 0.49 X 10*3/uL (0.20-1.00); Monocytes % (A) 8.3 %; NRBC Per 100 WBC 0 X 10*3/uL (0.00-0.01); Neutrophils # (A) 4.35 X 10*3/uL (1.80-7.70); Platelet Count 200 X 10*3/uL (140-440); RBC 3.71 X 10*6/uL (4.40-5.60); RDW 15.5 % (11.5-14.5); WBC 5.87 X 10*3/uL (4.50-10.00)
[2023-09-07 11:08] LABS: Glucose,Whole Blood 81 mg/dL (70-110)
[2023-09-07 12:14] LABS: BUN/Creat Ratio 9.12 Ratio (12.00-20.00); Blood Urea Nitrogen 15.5 mg/dL (9.0-27.0); Calcium 8.4 mg/dL (8.7-10.3); Chloride 102 mmol/L (96-109); Glucose 74 mg/dL (70-110); Magnesium 1.9 mg/dL (1.5-2.4); Potassium 3.7 mmol/L (3.5-5.5); Sodium 144 mmol/L (135-145)
--- NOTE | 2023-09-07 15:10 | P.GSCN ---
History of Present Illness History of present illness: 67-year-old diabetic male patient is known to me from the past patient had a right big toe procedure done which is completely healed patient has a pressure ulcer wound on the right heel and blister on the left heel consulted for wound debridement and deep culture Chest is clear good entry both lung. Second sound present Abdomen soft nontender Vascular femorals are 1+ PT DP not palpable left heel has a wound measurement is 4 x 3 x 0.5 cm and there is a blister which i has ruptured and draining fluid Plan is debridement and deep culture of the left heel wound Past Medical History Past Medical History: Diabetes Mellitus, Hyperlipidemia, Hypertension, Thyroid Disorder History of Any Multi-Drug Resistant Organisms: None Reported Year Discovered:: 04/21/23 MDRO Source:: Left Foot Past Surgical History: Coronary Bypass/CABG, Heart Catheterization With Stent Additional Past Surgical History / Comment(s): left great and second toe removal. bilat carpal tunnel. neck fusion 5-6-7. triple bypass Past Anesthesia/Blood Transfusion Reactions: No Reported Reaction Additional Past Anesthesia/Blood Transfusion Reaction / Comm: no blood transfusion Date of Last Stent Placement:: 02/2002 Past Psychological History: No Psychological Hx Reported Smoking Status: Former smoker Past Alcohol Use History: None Reported Additional Past Alcohol Use History / Comment(s): quit smoking at 38 Past Drug Use History: None Reported - Past Family History Father History Unknown: Yes Mother History Unknown: Yes Medications and Allergies Home Medications Medication Instructions Recorded Confirmed Type Ferrous Sulfate [Iron (65 MG 325 mg PO DAILY 03/04/21 08/26/23 History Elemental)] Hydroxychloroquine Sulfate 200 mg PO BID 03/04/21 08/26/23 History [Plaquenil] Levothyroxine Sodium [Synthroid] 100 mcg PO DAILY@0600 03/04/21 08/26/23 History Meclizine [Antivert] 12.5 mg PO TID PRN 30 Days #90 03/13/21 08/26/23 Rx tablet Balsalazide Disodium [Colazal] 2,250 mg PO BID 03/17/23 08/26/23 History Loratadine [Claritin] 10 mg PO DAILY 03/17/23 08/26/23 History Apixaban [Eliquis] 5 mg PO BID #60 tab 06/11/23 08/26/23 Rx Atorvastatin [Lipitor] 10 mg PO HS 08/01/23 08/26/23 History Insulin Lispro See Protocol SQ TID-W/MEALS 08/01/23 08/26/23 History Melatonin 10 mg PO HS 08/01/23 08/26/23 History Ondansetron [Zofran] 4 mg PO TID PRN 08/01/23 08/26/23 History Acetaminophen Tab [Tylenol] 650 mg PO Q6HR PRN tab 08/11/23 08/26/23 Rx Amiodarone [Cordarone] 200 mg PO DAILY #30 tab 08/11/23 08/26/23 Rx Aspirin 81 mg PO DAILY #30 tab 08/11/23 08/26/23 Rx Losartan [Cozaar] 50 mg PO BID #60 tab 08/11/23 08/26/23 Rx Torsemide [Demadex] 10 mg PO DAILY 30 Days #15 tab 08/11/23 08/26/23 Rx hydrALAZINE HCL [Apresoline] 50 mg PO TID #90 tab 08/11/23 08/26/23 Rx Gabapentin [Neurontin] 100 mg PO Q8H 08/12/23 08/26/23 History Dapagliflozin Propanediol [Farxiga] 10 mg PO DAILY #30 tab 08/25/23 08/26/23 Rx Famotidine [Pepcid] 20 mg PO BID 30 Days #60 tablet 08/25/23 08/26/23 Rx HYDROcodone/APAP 5-325MG [Fedscreek 1 tab PO HS PRN 5 Days #5 tab 08/25/23 08/26/23 Rx 5-325] Insulin Detemir (Levemir) [Levemir] 8 unit SQ HS #10 gm 08/25/23 08/26/23 Rx Isosorbide Mononitrate ER [Imdur] 30 mg PO DAILY #30 tab 08/25/23 08/26/23 Rx amLODIPine [Norvasc] 10 mg PO DAILY #30 tab 08/25/23 08/26/23 Rx carvediloL [Coreg] 6.25 mg PO BID 30 Days #60 tablet 08/25/23 08/26/23 Rx cefUROXime axetiL [Ceftin] 500 mg PO BID #28 tab 08/25/23 08/26/23 Rx metroNIDAZOLE [Flagyl] 500 mg PO TID #42 tab 08/25/23 08/26/23 Rx Allergies Allergy/AdvReac Type Severity Reaction Status Date / Time Penicillins Allergy Unknown Verified 08/26/23 19:51 Childhood Surgical - Exam Vital Signs Temp Pulse Resp BP Pulse Ox 97.0 F L 65 18 162/60 93 L 08/26/23 18:46 08/26/23 18:46 08/26/23 18:46 08/26/23 18:46 08/26/23 18:46 Results - Labs 09/07/23 04:17 09/07/23 04:17 Abnormal Lab Results - Last 24 Hours (Table) 09/07/23 09/07/23 Range/Units 04:17 04:17 RBC 3.71 L (4.40-5.60) X 10*6/uL Hgb 10.2 L (13.0-17.0) g/dL Hct 33.1 L (39.6-50.0) % MCHC 30.8 L (32.0-37.0) g/dL RDW 15.5 H (11.5-14.5) % Immature Gran # 0.05 H (0.00-0.04) X 10*3/uL Lymphocytes # 0.69 L (0.90-5.00) X 10*3/uL Anion Gap 18.00 H (4.00-12.00) mmol/L Creatinine 1.7 H (0.6-1.5) mg/dL Est GFR (CKD-EPI) 44 L (>=60) BUN/Creatinine Ratio 9.12 L (12.00-20.00) Ratio Calcium 8.4 L (8.7-10.3) mg/dL Diabetes panel 09/07/23 Range/Units 04:17 Sodium 144 (135-145) mmol/L Potassium 3.7 (3.5-5.5) mmol/L Chloride 102 (96-109) mmol/L Carbon Dioxide 24.0 (21.6-31.8) mmol/L BUN 15.5 (9.0-27.0) mg/dL Creatinine 1.7 H (0.6-1.5) mg/dL Glucose 74 (70-110) mg/dL Calcium 8.4 L (8.7-10.3) mg/dL Calcium panel 09/07/23 Range/Units 04:17 Calcium 8.4 L (8.7-10.3) mg/dL Pituitary panel 09/07/23 Range/Units 04:17 Sodium 144 (135-145) mmol/L Potassium 3.7 (3.5-5.5) mmol/L Chloride 102 (96-109) mmol/L Carbon Dioxide 24.0 (21.6-31.8) mmol/L BUN 15.5 (9.0-27.0) mg/dL Creatinine 1.7 H (0.6-1.5) mg/dL Glucose 74 (70-110) mg/dL Calcium 8.4 L (8.7-10.3) mg/dL Adrenal panel 09/07/23 Range/Units 04:17 Sodium 144 (135-145) mmol/L Potassium 3.7 (3.5-5.5) mmol/L Chloride 102 (96-109) mmol/L Carbon Dioxide 24.0 (21.6-31.8) mmol/L BUN 15.5 (9.0-27.0) mg/dL Creatinine 1.7 H (0.6-1.5) mg/dL Glucose 74 (70-110) mg/dL Calcium 8.4 L (8.7-10.3) mg/dL
--- NOTE | 2023-09-07 15:13 | P.PCN ---
Description of Procedure: Preop diagnosis wound measurement is 4 x 3 x 0.5 cm Postop the same postdebridement measurement is 4 x 3 by is 1 cm Procedure patient was seen To the left lateral position left heel was prepped and draped in Prestel manner 1% lidocaine infiltrated using sharp knife we excised the devitalized tissue down to subcu tissue fat and the fascia all the necrotic tissue was removed which was sent for deep culture no active bleeding was noted wound was copiously irrigated with saline and Medihoney gel applied to the wound patient tolerated the procedure well this patient also had a blister which has been draining some clear fluid blister was opened up and wound was irrigated with saline and Medihoney gel applied to the wound dressing applied patient taught the procedure well Plan is to change the dressing daily with Medihoney gel patient is an IV antibiotic under care of infectious disease
[2023-09-07] MEDS: LIDOCAINE 1% INJ 10MG/ML (20 ML MDV) SQ ONE (15:15)
--- NOTE | 2023-09-07 15:26 | P.GSCN ---
History of Present Illness History of present illness: 67-year-old gentleman patient is well-known to us from the wound clinic. Patient has been coming to wound clinic follow-up with me for a sacral wound and patient has a large wound on the left foot plantar aspect we considered Dr. Bursn for further debridement possible colostomy patient had a extensive debridement done for the sacral wound. Medical history history of diabetes obesity Patient was seen in his room neck is supple no bruit appreciated Chest is clear good in both lung. Second sound normal Abdomen soft nontender Vascular femorals are 1+ bilateral left foot heel wound and involving the plantar aspect we used debridement and then followed by skin graft using Kerecis wound on the heel is is is clean and dry and and is getting smaller patient also has a wound on the right foot which has been treated with extra silver we will continue the same patient is under care of infectious disease for IV antibiotic was patient is stabilized we will follow with the wound clinic Past Medical History Past Medical History: Diabetes Mellitus, Hyperlipidemia, Hypertension, Thyroid Disorder History of Any Multi-Drug Resistant Organisms: None Reported Year Discovered:: 04/21/23 MDRO Source:: Left Foot Past Surgical History: Coronary Bypass/CABG, Heart Catheterization With Stent Additional Past Surgical History / Comment(s): left great and second toe removal. bilat carpal tunnel. neck fusion 5-6-7. triple bypass Past Anesthesia/Blood Transfusion Reactions: No Reported Reaction Additional Past Anesthesia/Blood Transfusion Reaction / Comm: no blood transfus ion Date of Last Stent Placement:: 02/2002 Past Psychological History: No Psychological Hx Reported Smoking Status: Former smoker Past Alcohol Use History: None Reported Additional Past Alcohol Use History / Comment(s): quit smoking at 38 Past Drug Use History: None Reported - Past Family History Father History Unknown: Yes Mother History Unknown: Yes Medications and Allergies Home Medications Medication Instructions Recorded Confirmed Type Ferrous Sulfate [Iron (65 MG 325 mg PO DAILY 03/04/21 08/26/23 History Elemental)] Hydroxychloroquine Sulfate 200 mg PO BID 03/04/21 08/26/23 History [Plaquenil] Levothyroxine Sodium [Synthroid] 100 mcg PO DAILY@0600 03/04/21 08/26/23 History Meclizine [Antivert] 12.5 mg PO TID PRN 30 Days #90 03/13/21 08/26/23 Rx tablet Balsalazide Disodium [Colazal] 2,250 mg PO BID 03/17/23 08/26/23 History Loratadine [Claritin] 10 mg PO DAILY 03/17/23 08/26/23 History Apixaban [Eliquis] 5 mg PO BID #60 tab 06/11/23 08/26/23 Rx Atorvastatin [Lipitor] 10 mg PO HS 08/01/23 08/26/23 History Insulin Lispro See Protocol SQ TID-W/MEALS 08/01/23 08/26/23 History Melatonin 10 mg PO HS 08/01/23 08/26/23 History Ondansetron [Zofran] 4 mg PO TID PRN 08/01/23 08/26/23 History Acetaminophen Tab [Tylenol] 650 mg PO Q6HR PRN tab 08/11/23 08/26/23 Rx Amiodarone [Cordarone] 200 mg PO DAILY #30 tab 08/11/23 08/26/23 Rx Aspirin 81 mg PO DAILY #30 tab 08/11/23 08/26/23 Rx Losartan [Cozaar] 50 mg PO BID #60 tab 08/11/23 08/26/23 Rx Torsemide [Demadex] 10 mg PO DAILY 30 Days #15 tab 08/11/23 08/26/23 Rx hydrALAZINE HCL [Apresoline] 50 mg PO TID #90 tab 08/11/23 08/26/23 Rx Gabapentin [Neurontin] 100 mg PO Q8H 08/12/23 08/26/23 History Dapagliflozin Propanediol [Farxiga] 10 mg PO DAILY #30 tab 08/25/23 08/26/23 Rx Famotidine [Pepcid] 20 mg PO BID 30 Days #60 tablet 08/25/23 08/26/23 Rx HYDROcodone/APAP 5-325MG [Galt 1 tab PO HS PRN 5 Days #5 tab 08/25/23 08/26/23 Rx 5-325] Insulin Detemir (Levemir) [Levemir] 8 unit SQ HS #10 gm 08/25/23 08/26/23 Rx Isosorbide Mononitrate ER [Imdur] 30 mg PO DAILY #30 tab 08/25/23 08/26/23 Rx amLODIPine [Norvasc] 10 mg PO DAILY #30 tab 08/25/23 08/26/23 Rx carvediloL [Coreg] 6.25 mg PO BID 30 Days #60 tablet 08/25/23 08/26/23 Rx cefUROXime axetiL [Ceftin] 500 mg PO BID #28 tab 08/25/23 08/26/23 Rx metroNIDAZOLE [Flagyl] 500 mg PO TID #42 tab 08/25/23 08/26/23 Rx Allergies Allergy/AdvReac Type Severity Reaction Status Date / Time Penicillins Allergy Unknown Verified 08/26/23 19:51 Childhood Surgical - Exam Vital Signs Temp Pulse Resp BP Pulse Ox 97.0 F L 65 18 162/60 93 L 08/26/23 18:46 08/26/23 18:46 08/26/23 18:46 08/26/23 18:46 08/26/23 18:46 Results - Labs 09/07/23 04:17 09/07/23 04:17 Abnormal Lab Results - Last 24 Hours (Table) 09/07/23 09/07/23 Range/Units 04:17 04:17 RBC 3.71 L (4.40-5.60) X 10*6/uL Hgb 10.2 L (13.0-17.0) g/dL Hct 33.1 L (39.6-50.0) % MCHC 30.8 L (32.0-37.0) g/dL RDW 15.5 H (11.5-14.5) % Immature Gran # 0.05 H (0.00-0.04) X 10*3/uL Lymphocytes # 0.69 L (0.90-5.00) X 10*3/uL Anion Gap 18.00 H (4.00-12.00) mmol/L Creatinine 1.7 H (0.6-1.5) mg/dL Est GFR (CKD-EPI) 44 L (>=60) BUN/Creatinine Ratio 9.12 L (12.00-20.00) Ratio Calcium 8.4 L (8.7-10.3) mg/dL Diabetes panel 09/07/23 Range/Units 04:17 Sodium 144 (135-145) mmol/L Potassium 3.7 (3.5-5.5) mmol/L Chloride 102 (96-109) mmol/L Carbon Dioxide 24.0 (21.6-31.8) mmol/L BUN 15.5 (9.0-27.0) mg/dL Creatinine 1.7 H (0.6-1.5) mg/dL Glucose 74 (70-110) mg/dL Calcium 8.4 L (8.7-10.3) mg/dL Calcium panel 09/07/23 Range/Units 04:17 Calcium 8.4 L (8.7-10.3) mg/dL Pituitary panel 09/07/23 Range/Units 04:17 Sodium 144 (135-145) mmol/L Potassium 3.7 (3.5-5.5) mmol/L Chloride 102 (96-109) mmol/L Carbon Dioxide 24.0 (21.6-31.8) mmol/L BUN 15.5 (9.0-27.0) mg/dL Creatinine 1.7 H (0.6-1.5) mg/dL Glucose 74 (70-110) mg/dL Calcium 8.4 L (8.7-10.3) mg/dL Adrenal panel 09/07/23 Range/Units 04:17 Sodium 144 (135-145) mmol/L Potassium 3.7 (3.5-5.5) mmol/L Chloride 102 (96-109) mmol/L Carbon Dioxide 24.0 (21.6-31.8) mmol/L BUN 15.5 (9.0-27.0) mg/dL Creatinine 1.7 H (0.6-1.5) mg/dL Glucose 74 (70-110) mg/dL Calcium 8.4 L (8.7-10.3) mg/dL
--- NOTE | 2023-09-07 15:43 | P.PN ---
Subjective Progress Note Date: 09/07/23 Principal diagnosis: Reason for follow-up is left heel infected pressure ulcer Patient is a 67-year-old male with a past medical history significant for diabetes mellitus hypertension hyperlipidemia hypothyroidism history of diabetic foot infection osteomyelitis and currently has been dealing with the left heel nonhealing wound with secondary cellulitis being readmitted to hospital for unable to take care of himself at home and difficulty getting around. On today's evaluation that is 09/07/2023,the patient remains to be afebrile, patient is on room air not requiring supplemental oxygen and denies any shortness of breath no chest pain or cough.Patient has been complaining of some nausea and decreased oral intake but no vomiting, no abdominal pain no pain to bilateral feet wound. Patient white count is 5.87, creat is 1.7 Objective - Vital Signs Vital signs: Vital Signs Temp 98.0 F 09/07/23 13:43 Pulse 64 09/07/23 13:43 Resp 16 09/07/23 13:43 BP 155/67 09/07/23 13:43 Pulse Ox 95 09/07/23 13:43 FiO2 Intake & Output 09/06/23 09/07/23 09/07/23 18:59 06:59 18:59 Output Total 425 Balance -425 Output: Urine 425 Other: Voiding Method External Catheter # Voids 500 # Bowel Movements 5 1 - Exam GENERAL DESCRIPTION: An elderly male lying in bed in no distress RESPIRATORY SYSTEM: Unlabored breathing , decreased breath sounds at bases HEART: S1 S2 regular rate and rhythm , ABDOMEN: Soft , no tenderness EXTREMITIES: Bilateral heel wounds are currently dressed - Labs CBC & Chem 7: 09/07/23 04:17 09/07/23 04:17 Labs: Abnormal Lab Results - Last 24 Hours (Table) 09/07/23 09/07/23 Range/Units 04:17 04:17 RBC 3.71 L (4.40-5.60) X 10*6/uL Hgb 10.2 L (13.0-17.0) g/dL Hct 33.1 L (39.6-50.0) % MCHC 30.8 L (32.0-37.0) g/dL RDW 15.5 H (11.5-14.5) % Immature Gran # 0.05 H (0.00-0.04) X 10*3/uL Lymphocytes # 0.69 L (0.90-5.00) X 10*3/uL Anion Gap 18.00 H (4.00-12.00) mmol/L Creatinine 1.7 H (0.6-1.5) mg/dL Est GFR (CKD-EPI) 44 L (>=60) BUN/Creatinine Ratio 9.12 L (12.00-20.00) Ratio Calcium 8.4 L (8.7-10.3) mg/dL Assessment and Plan (1) Diabetic foot infection Current Visit: Yes Status: Acute Code(s): E11.628 - TYPE 2 DIABETES MELLITUS WITH OTHER SKIN COMPLICATIONS; L08.9 - LOCAL INFECTION OF THE SKIN AND SUBC UTANEOUS TISSUE, UNSP SNOMED Code(s): 887354783 (2) Penicillin allergy Current Visit: No Status: Acute Code(s): Z88.0 - ALLERGY STATUS TO PENICILLIN SNOMED Code(s): 02531411 (3) Pressure ulcer of left heel, stage 3 Current Visit: No Status: Acute Code(s): L89.623 - PRESSURE ULCER OF LEFT HEEL, STAGE 3 SNOMED Code(s): 08046187226943 Plan: 1patient with a chronic nonhealing wound to the left heel stage III pressure ulcer with secondary cellulitis on one of his admission 08/02/2023 patient cu lture positive for Proteus mirabilis with the patient has been treated with IV Rocephin patient did have overall improvement to the left heel area however did have an area of skin necrosis that may need debrided further. 2patient also developed a pressure ulcer to the right heel with a big blister which has not yet ruptured and no surrounding cellulitis 3patient also have a wound on the medial aspect of the right foot at the base of the first metatarsal but no significant surrounding redness. 4keep the right heel of the pressure to prevent further worsening of his right heel pressure ulcer. 5 patient has been eval by vascular surgery and did have debridement of the heel wound continue with Rocephin while inpatient Dictation was produced using [employer] dictation software. please excuse any grammatical, word or spelling errors. Time with Patient: Less than 30
[2023-09-07 17:05] LABS: Glucose,Whole Blood 73 mg/dL (70-110)
[2023-09-07 21:06] LABS: Glucose,Whole Blood 69 mg/dL (70-110)
--- NOTE | 2023-09-07 21:06 | P.PN ---
Subjective Progress Note Date: 09/07/23 Patient was evaluated today resting in bed. He is reporting significant nausea most likely due to the antibiotics he is on. Patient states he was barely able to get up with physical therapy today secondary to his nausea. Apparently he has no more days at the rehab and social work is following up on this. Is currently on a 2-week course of oral Ceftin and oral Flagyl from his discharge on August 24. Changed IV Lasix to oral Lasix and monitor his blood pressure closely. 08/31/2023 Patient is evaluated today in follow up resting in bed. Continues to report significant nausea. recommending to continue with IV zofran. PT/OT recommending rehab at this time and 14/09 care, patient is out of rehab days. Social work recommending guardian at this time. BUN 16, creatinine 1.60. 09/01/2023 Patient evaluated today in follow up. Continues to report significant nausea with poor oral intake. He continues on IV zofran 4 mg every 6 hours and recommending to also add compazine. Abdominal xray done reveals no acute process. BUN 16, creatinine 1.56. 09/02/2023 Patient is currently awaiting guardianship hearing which will be on Wednesday. He does require subacute rehab however is out of rehab days through his health insurance. He is continued on his IV and oral medications and has 7 days left of his treatment as recommended by Dr. Liang. Patient continues to report significant nausea he is on a combination of IV Compazine and IV Zofran. Blood cell count is 7.0, hemoglobin 10.0, sodium 139, potassium 3.4, BUN of 17, creatinine 1.51. 09/03/2023 Patient evaluated today resting in bed. Patient continues with nausea and poor oral intake. He continues on course of IV and PO antibiotics. Done on September 07 with antibiotic therapy. APS following. Patient has legal guardianship meeting on Wednesday. 09/04/2023 Patient is evaluated today on the medical floor in follow-up. Patient continues to report nausea and poor oral intake states that the food is not appetizing and he does not wish to eat it. He is encouraged to try what he wants to have family bring in food if possible. He continues on a course of IV and p.o. antibiotics as previously recommended in his prior discharge. This is for the l eft heel unstageable ulcer. Patient has been following along with Dr. Liang for this and we did ask for consultation for him to follow-up with this patient regarding the heel wound and antibiotic care. Pending guardianship hearing on Wednesday. Continue to monitor. 09/05/2023 Patient is evaluated today in follow up patient continues to rest in bed and encouraged to get up with assistance. He does have a pressure reduction shoe at home for the left food. Patient continues on course of IV ceftriaxone and po flagyl from prior admission. He has local wound care in place for the left heel. He has a guardian ship hearing on wednesday. 09/06/2023 Evaluated in follow-up on the medical floor. Patient continues to report significant nausea however does state that it has improved since admission. He continues on Zofran and Compazine as needed. Patient is tolerating increased diet. He continues on a course of IV ceftriaxone and oral metronidazole as recommended from his prior discharge. Infectious disease has evaluated this patient and recommending further debridement of his left heel ulcer and vascular services was consulted. 09/07/2023 Patient is evaluated today in follow-up on the medical floor. Patient has been evaluated vascular surgery and patient will undergo surgical debridement of the left heel today with Dr. Galindo. Patient has been using [facility] for local wound care.. Patient continues on IV antibiotics with prior cultures showing Proteus Mirabella's, Christina vika-and Staphylococcus epidermidis in the wound culture from August 01. No new wound cultures were completed this admission. Blood work today reveals a white blood cell count of 5.87, hemoglobin 10.2, s odium 144, potassium 3.7, BUN of 15.5, creatinine of 1.7. Magnesium 1.9. Patient is under the care of a public guardian and we are working on placement. Review of Systems Constitutional: Denied any fatigue denied any fever. Cardio vascular: denied any chest pain, palpitations Gastrointestinal: denied any nausea, vomiting, diarrhea Pulmonary: Denied any shortness of breath cough Neurologic denied any new focal deficits All inpatient medications were reviewed and appropriate changes in these medications as dictated in the interval history and assessment and plan. PHYSICAL EXAMINATION: GENERAL: The patient is alert and oriented x3, not in any acute distress. Well developed, well nourished. HEENT: Pupils are round and equally reacting to light. EOMI. No scleral icterus. No conjunctival pallor. Normocephalic, atraumatic. No pharyngeal erythema. No thyromegaly. CARDIOVASCULAR: S1 and S2 present. No murmurs, rubs, or gallops. PULMONARY: Chest is clear to auscultation, no wheezing or crackles. ABDOMEN: Soft, nontender, nondistended, normoactive bowel sounds. No palpable organomegaly. MUSCULOSKELETAL: No joint swelling or deformity. EXTREMITIES: No cyanosis, clubbing, or pedal edema. NEUROLOGICAL: Gross neurological examination did not reveal any focal deficits. SKIN: No rashes. Assesment and Plan Generalized weakness complicated by severe hypokalemia Severe hypokalemia secondary to diuretic torsemide resolved. Left heel Stage III diabetic foot ulcer with surrounding cellulitis. and right heel unstageable heel ulcer. Was on oral ceftin and oral flagyl for 2 week c ourse as of 08/25/23 discharge. UTI, acute. Resolved Acute on chronic CHF with systolic dysfunction ejection fraction 30 to 35%. Resolved Uncontrolled hypertension. Improved Mild renal insufficiency prerenal from poor oral intake and continued diuresis. Elevated troponin level likely type II [place] CKD stage IV with baseline creatinine 1.8-2 Persistent atrial fibrillation status post ALEXIA and cardioversion on 08/09/2023 Generalized weakness and fatigue and unable to ambulate get out of bed. Coronary artery with history of CABG and stent placement Diabetes type 2 insulin-dependent Hypothyroidism Hyperlipidemia Prior history of smoking DVT prophylaxis patient is already on Eliquis Diabetic peripheral neuropathy Iron deficiency anemia Depression GI prophylaxis Full Code Plan Social Work following for discharge planning would benefit from rehab however he is out of rehab days at this time.Patient now has public guardian. Patient with poor appetite and mood appears to have a flat affect would benefit from antidepressant and celexa has been added. Discussed with patient an attempt to increase oral intake suspect nausea is a combination of poor oral intake and medication affect. Supportive care in place. Continue antibiotics as previously recommended by ID Local wound care to heel ulcers with honey gel and boarded foam to the site. Patient to under surgical debridement of left heel ulcer today. PT/OT consultation Continue pepcid and zofran. Added compazine. Encourage oral intake. Repeat blood work in the AM. The impression and plan of care has been dictated by Zoe Pradhan, Nurse Practitioner as directed. Dr. Elaina MD I have performed a history and physical examination and medical decision making of this patient, discussed the same with the dictator, and agree with the dictators assessment and plan as written, documented as a scribe. Based on total visit time, I have performed more than 50% of this visit. Objective - Vital Signs Vital signs: Vital Signs Temp 98.0 F 09/07/23 20:00 Pulse 66 09/07/23 20:00 Resp 18 09/07/23 20:00 BP 124/86 09/07/23 20:00 Pulse Ox 97 09/07/23 20:00 FiO2 Intake & Output 09/07/23 09/07/23 09/08/23 06:59 18:59 06:59 Output Total 425 400 Balance -425 -400 Output: Urine 425 400 Other: Voiding Method External Catheter # Voids 1 # Bowel Movements 1 2 - Labs CBC & Chem 7: 09/07/23 04:17 09/07/23 04:17 Labs: Abnormal Lab Results - Last 24 Hours (Table) 09/07/23 09/07/23 Range/Units 04:17 04:17 RBC 3.71 L (4.40-5.60) X 10*6/uL Hgb 10.2 L (13.0-17.0) g/dL Hct 33.1 L (39.6-50.0) % MCHC 30.8 L (32.0-37.0) g/dL RDW 15.5 H (11.5-14.5) % Immature Gran # 0.05 H (0.00-0.04) X 10*3/uL Lymphocytes # 0.69 L (0.90-5.00) X 10*3/uL Anion Gap 18.00 H (4.00-12.00) mmol/L Creatinine 1.7 H (0.6-1.5) mg/dL Est GFR (CKD-EPI) 44 L (>=60) BUN/Creatinine Ratio 9.12 L (12.00-20.00) Ratio Calcium 8.4 L (8.7-10.3) mg/dL Assessment and Plan Time with Patient: Less than 30
[2023-09-07 22:14] LABS: Glucose,Whole Blood 78 mg/dL (70-110)
[2023-09-08 08:42] LABS: Basophils # (A) 0.06 X 10*3/uL (0.00-0.10); Eosinophils # (A) 0.15 X 10*3/uL (0.04-0.35); Eosinophils % (A) 2.4 %; HCT 31.4 % (39.6-50.0); HGB 9.7 g/dL (13.0-17.0); Lymphocytes # (A) 0.65 X 10*3/uL (0.90-5.00); Lymphocytes % (A) 10.3 %; MCH 27.6 pg (27.0-32.0); MCHC 30.9 g/dL (32.0-37.0); MCV 89.5 FL (80.0-97.0); Mean Platelet Volume 11.1 FL (9.5-12.2); Monocytes % (A) 7.9 %; NRBC Per 100 WBC 0 X 10*3/uL (0.00-0.01); Neutrophils # (A) 4.89 X 10*3/uL (1.80-7.70); Neutrophils % (A) 77.8 %; Platelet Count 199 X 10*3/uL (140-440); RBC 3.51 X 10*6/uL (4.40-5.60); RDW 15.7 % (11.5-14.5); WBC 6.29 X 10*3/uL (4.50-10.00)
[2023-09-08 09:25] LABS: BUN/Creat Ratio 9.78 Ratio (12.00-20.00); Blood Urea Nitrogen 17.6 mg/dL (9.0-27.0); Chloride 103 mmol/L (96-109); Glucose 65 mg/dL (70-110); Potassium 3.4 mmol/L (3.5-5.5); Sodium 144 mmol/L (135-145)
[2023-09-08] MEDS ORDERED: POTASSIUM CHLORIDE ER 20 MEQ TAB.ER PO SCH (10:00)
[2023-09-08] MEDS: POTASSIUM CHLORIDE ER 20 MEQ TAB.ER PO STA ×2 (11:01)
[2023-09-08 11:44] LABS: Glucose,Whole Blood 116 mg/dL (70-110)
[2023-09-08 16:39] LABS: Glucose,Whole Blood 101 mg/dL (70-110)
--- NOTE | 2023-09-08 20:55 | P.PN ---
Subjective Progress Note Date: 09/08/23 Patient was evaluated today resting in bed. He is reporting significant nausea most likely due to the antibiotics he is on. Patient states he was barely able to get up with physical therapy today secondary to his nausea. Apparently he has no more days at the rehab and social work is following up on this. Is currently on a 2-week course of oral Ceftin and oral Flagyl from his discharge on August 24. Changed IV Lasix to oral Lasix and monitor his blood pressure closely. 08/31/2023 Patient is evaluated today in follow up resting in bed. Continues to report significant nausea. recommending to continue with IV zofran. PT/OT recommending rehab at this time and 14/09 care, patient is out of rehab days. Social work recommending guardian at this time. BUN 16, creatinine 1.60. 09/01/2023 Patient evaluated today in follow up. Continues to report significant nausea with poor oral intake. He continues on IV zofran 4 mg every 6 hours and recommending to also add compazine. Abdominal xray done reveals no acute process. BUN 16, creatinine 1.56. 09/02/2023 Patient is currently awaiting guardianship hearing which will be on Wednesday. He does require subacute rehab however is out of rehab days through his health insurance. He is continued on his IV and oral medications and has 7 days left of his treatment as recommended by Dr. Liang. Patient continues to report significant nausea he is on a combination of IV Compazine and IV Zofran. Blood cell count is 7.0, hemoglobin 10.0, sodium 139, potassium 3.4, BUN of 17, creatinine 1.51. 09/03/2023 Patient evaluated today resting in bed. Patient continues with nausea and poor oral intake. He continues on course of IV and PO antibiotics. Done on September 07 with antibiotic therapy. APS following. Patient has legal guardianship meeting on Wednesday. 09/04/2023 Patient is evaluated today on the medical floor in follow-up. Patient continues to report nausea and poor oral intake states that the food is not appetizing and he does not wish to eat it. He is encouraged to try what he wants to have family bring in food if possible. He continues on a course of IV and p.o. antibiotics as previously recommended in his prior discharge. This is for the l eft heel unstageable ulcer. Patient has been following along with Dr. Liang for this and we did ask for consultation for him to follow-up with this patient regarding the heel wound and antibiotic care. Pending guardianship hearing on Wednesday. Continue to monitor. 09/05/2023 Patient is evaluated today in follow up patient continues to rest in bed and encouraged to get up with assistance. He does have a pressure reduction shoe at home for the left food. Patient continues on course of IV ceftriaxone and po flagyl from prior admission. He has local wound care in place for the left heel. He has a guardian ship hearing on wednesday. 09/06/2023 Evaluated in follow-up on the medical floor. Patient continues to report significant nausea however does state that it has improved since admission. He continues on Zofran and Compazine as needed. Patient is tolerating increased diet. He continues on a course of IV ceftriaxone and oral metronidazole as recommended from his prior discharge. Infectious disease has evaluated this patient and recommending further debridement of his left heel ulcer and vascular services was consulted. 09/07/2023 Patient is evaluated today in follow-up on the medical floor. Patient has been evaluated vascular surgery and patient will undergo surgical debridement of the left heel today with Dr. Galindo. Patient has been using [facility] for local wound care.. Patient continues on IV antibiotics with prior cultures showing Proteus Mirabella's, Christina vika-and Staphylococcus epidermidis in the wound culture from August 01. No new wound cultures were completed this admission. Blood work today reveals a white blood cell count of 5.87, hemoglobin 10.2, s odium 144, potassium 3.7, BUN of 15.5, creatinine of 1.7. Magnesium 1.9. Patient is under the care of a public guardian and we are working on placement. 09/08/2023 Patient is evaluated today in follow up on the medical floor. Patient is postoperative day #1 surgical debridement. Patient continues with local wound care to the feet wounds with medihoney. Patient continues to report persistent nausea, his creatinine level is 1.8 today. Patient is pending authorization for subacute rehab. Review of Systems Constitutional: Denied any fatigue denied any fever. Cardio vascular: denied any chest pain, palpitations Gastrointestinal: denied any nausea, vomiting, diarrhea Pulmonary: Denied any shortness of breath cough Neurologic denied any new focal deficits All inpatient medications were reviewed and appropriate changes in these medications as dictated in the interval history and assessment and plan. PHYSICAL EXAMINATION: GENERAL: The patient is alert and oriented x3, not in any acute distress. Well developed, well nourished. HEENT: Pupils are round and equally reacting to light. EOMI. No scleral icterus. No conjunctival pallor. Normocephalic, atraumatic. No pharyngeal erythema. No thyromegaly. CARDIOVASCULAR: S1 and S2 present. No murmurs, rubs, or gallops. PULMONARY: Chest is clear to auscultation, no wheezing or crackles. ABDOMEN: Soft, nontender, nondistended, normoactive bowel sounds. No palpable organomegaly. MUSCULOSKELETAL: No joint swelling or deformity. EXTREMITIES: No cyanosis, clubbing, or pedal edema. NEUROLOGICAL: Gross neurological examination did not reveal any focal deficits. SKIN: No rashes. Assesment and Plan Generalized weakness complicated by severe hypokalemia Severe hypokalemia secondary to diuretic torsemide resolved. Left heel Stage III diabetic foot ulcer with surrounding cellulitis. and right heel unstageable heel ulcer. Was on oral ceftin and oral flagyl for 2 week course as of 08/25/23 discharge. UTI, acute. Resolved Acute on chronic CHF with systolic dysfunction ejection fraction 30 to 35%. Resolved Uncontrolled hypertension. Improved Mild renal insufficiency prerenal from poor oral intake and continued diuresis. Elevated troponin level likely type II VT CKD stage IV with baseline creatinine 1.8-2 Persistent atrial fibrillation status post ALEXIA and cardioversion on 08/09/2023 Generalized weakness and fatigue and unable to ambulate get out of bed. Coronary artery with history of CABG and stent placement Diabetes type 2 insulin-dependent Hypothyroidism Hyperlipidemia Prior history of smoking DVT prophylaxis patient is already on Eliquis Diabetic peripheral neuropathy Iron deficiency anemia Depression GI prophylaxis Full Code Plan Social Work following for discharge planning would benefit from rehab however he is out of rehab days at this time.Patient now has public guardian pending medicaid application and acceptance at rehab. Patient with poor appetite and mood appears to have a flat affect would benefit from antidepressant and celexa has been added. Discussed with patient an attempt to increase oral intake suspect nausea is a combination of poor oral intake and medication affect. Supportive care in place. Continue antibiotics as previously recommended by ID Local wound care to heel ulcers with honey gel and boarded foam to the site. Patient to under surgical debridement of left heel ulcer today. PT/OT consultation Continue pepcid and zofran. Added compazine. Encourage oral intake. Repeat blood work in the AM; repeat CMP in the AM. The impression and plan of care has been dictated by Zoe Pradhan, Nurse Practitioner as directed. Dr. Elaina MD I have performed a history and physical examination and medical decision making of this patient, discussed the same with the dictator, and agree with the dictators assessment and plan as written, documented as a scribe. Based on total visit time, I have performed more than 50% of this visit. Objective - Vital Signs Vital signs: Vital Signs Temp 98.3 F 09/08/23 19:19 Pulse 64 09/08/23 19:19 Resp 18 09/08/23 19:19 BP 155/76 09/08/23 19:19 Pulse Ox 96 09/08/23 19:19 FiO2 Intake & Output 09/08/23 09/08/23 09/09/23 06:59 18:59 06:59 Intake Total 300 Output Total 450 Balance -150 Weight 90 kg Intake: Intake, IV Titration 50 Amount cefTRIAXone 2 gm In 50 Sodium Chloride 0.9% 50 ml @ 100 mls/hr IVPB Q24HR [facility] Rx#:[id number] Oral 250 Output: Urine 450 Other: Voiding Method External Catheter External Catheter # Bowel Movements 2 - Labs CBC & Chem 7: 09/08/23 03:14 09/08/23 03:14 Labs: Abnormal Lab Results - Last 24 Hours (Table) 09/07/23 09/08/23 09/08/23 Range/Units 21:05 03:14 03:14 RBC 3.51 L (4.40-5.60) X 10*6/uL Hgb 9.7 L (13.0-17.0) g/dL Hct 31.4 L (39.6-50.0) % MCHC 30.9 L (32.0-37.0) g/dL RDW 15.7 H (11.5-14.5) % Lymphocytes # 0.65 L (0.90-5.00) X 10*3/uL Potassium 3.4 L (3.5-5.5) mmol/L Anion Gap 15.00 H (4.00-12.00) mmol/L Creatinine 1.8 H (0.6-1.5) mg/dL Est GFR (CKD-EPI) 41 L (>=60) BUN/Creatinine Ratio 9.78 L (12.00-20.00) Ratio Glucose 65 L (70-110) mg/dL POC Glucose (mg/dL) 69 L (70-110) mg/dL Calcium 8.0 L (8.7-10.3) mg/dL 09/08/23 Range/Units 11:42 RBC (4.40-5.60) X 10*6/uL Hgb (13.0-17.0) g/dL Hct (39.6-50.0) % MCHC (32.0-37.0) g/dL RDW (11.5-14.5) % Lymphocytes # (0.90-5.00) X 10*3/uL Potassium (3.5-5.5) mmol/L Anion Gap (4.00-12.00) mmol/L Creatinine (0.6-1.5) mg/dL Est GFR (CKD-EPI) (>=60) BUN/Creatinine Ratio (12.00-20.00) Ratio Glucose (70-110) mg/dL POC Glucose (mg/dL) 116 H (70-110) mg/dL Calcium (8.7-10.3) mg/dL Assessment and Plan Time with Patient: Less than 30
[2023-09-08 21:04] LABS: Glucose,Whole Blood 95 mg/dL (70-110)
[2023-09-09 06:11] LABS: Glucose,Whole Blood 93 mg/dL (70-110)
--- NOTE | 2023-09-09 07:55 | P.PN ---
Subjective Progress Note Date: 09/08/23 Principal diagnosis: Reason for follow-up is left heel infected pressure ulcer Patient is a 67-year-old male with a past medical history significant for diabetes mellitus hypertension hyperlipidemia hypothyroidism history of diabetic foot infection osteomyelitis and currently has been dealing with the left heel nonhealing wound with secondary cellulitis being readmitted to hospital for unable to take care of himself at home and difficulty getting around. On today's evaluation that is 09/08/2023, the patient continues to be afebrile, the patient is on room air and breathing comfortably, the Pt denies having any chest pain or cough, the patient has been complaining of some nausea decreased oral intake but no abdominal pain or diarrhea denies pain to the bilateral heel wound. Patient white count 6.9, creatinine is 1 point 8 repeat cultures pending Objective - Vital Signs Vital signs: Vital Signs Temp 97.6 F 09/08/23 07:30 Pulse 62 09/08/23 07:50 Resp 16 09/08/23 12:01 BP 145/78 09/08/23 07:30 Pulse Ox 94 L 09/08/23 12:00 FiO2 Intake & Output 09/07/23 09/08/23 09/08/23 18:59 06:59 18:59 Intake Total 300 Output Total 400 450 Balance -400 -150 Intake: Intake, IV Titration 50 Amount cefTRIAXone 2 gm In 50 Sodium Chloride 0.9% 50 ml @ 100 mls/hr IVPB Q24HR [facility] Rx#:[id number] Oral 250 Output: Urine 400 450 Other: Voiding Method External Catheter External Catheter # Voids 1 # Bowel Movements 2 2 - Exam GENERAL DESCRIPTION: An elderly male lying in bed in no distress RESPIRATORY SYSTEM: Unlabored breathing , decreased breath sounds at bases HEART: S1 S2 regular rate and rhythm , ABDOMEN: Soft , no tenderness EXTREMITIES: Bilateral heel wounds are currently dressed - Labs CBC & Chem 7: 09/08/23 03:14 09/08/23 03:14 Labs: Abnormal Lab Results - Last 24 Hours (Table) 09/07/23 09/08/23 09/08/23 Range/Units 21:05 03:14 03:14 RBC 3.51 L (4.40-5.60) X 10*6/uL Hgb 9.7 L (13.0-17.0) g/dL Hct 31.4 L (39.6-50.0) % MCHC 30.9 L (32.0-37.0) g/dL RDW 15.7 H (11.5-14.5) % Lymphocytes # 0.65 L (0.90-5.00) X 10*3/uL Potassium 3.4 L (3.5-5.5) mmol/L Anion Gap 15.00 H (4.00-12.00) mmol/L Creatinine 1.8 H (0.6-1.5) mg/dL Est GFR (CKD-EPI) 41 L (>=60) BUN/Creatinine Ratio 9.78 L (12.00-20.00) Ratio Glucose 65 L (70-110) mg/dL POC Glucose (mg/dL) 69 L (70-110) mg/dL Calcium 8.0 L (8.7-10.3) mg/dL 09/08/23 Range/Units 11:42 RBC (4.40-5.60) X 10*6/uL Hgb (13.0-17.0) g/dL Hct (39.6-50.0) % MCHC (32.0-37.0) g/dL RDW (11.5-14.5) % Lymphocytes # (0.90-5.00) X 10*3/uL Potassium (3.5-5.5) mmol/L Anion Gap (4.00-12.00) mmol/L Creatinine (0.6-1.5) mg/dL Est GFR (CKD-EPI) (>=60) BUN/Creatinine Ratio (12.00-20.00) Ratio Glucose (70-110) mg/dL POC Glucose (mg/dL) 116 H (70-110) mg/dL Calcium (8.7-10.3) mg/dL Assessment and Plan (1) Diabetic foot infection Current Visit: Yes Status: Acute Code(s): E11.628 - TYPE 2 DIABETES MELLITUS WITH OTHER SKIN COMPLICATIONS; L08.9 - LOCAL INFECTION OF THE SKIN AND SUBCUTANEOUS TISSUE, UNSP SNOMED Code(s): 753423840 (2) Penicillin allergy Current Visit: No Status: Acute Code(s): Z88.0 - ALLERGY STATUS TO PENICILLIN SNOMED Code(s): 05932762 (3) Pressure ulcer of left heel, stage 3 Current Visit: No Status: Acute Code(s): L89.623 - PRESSURE ULCER OF LEFT HEEL, STAGE 3 SNOMED Code(s): 54948783262372 Plan: 1patient with a chronic nonhealing wound to the left heel stage III pressure ulcer with secondary cellulitis on one of his admission 08/02/2023 patient culture positive for Proteus mirabilis with the patient has been treated with IV Rocephin patient did have overall improvement to the left heel area however did have an area of skin necrosis that may need debrided further. 2patient also developed a pressure ulcer to the right heel with a big blister which has not yet ruptured and no surrounding cellulitis 3patient also have a wound on the medial aspect of the right foot at the base of the first metatarsal but no significant surrounding redness. 4keep the right heel of the pressure to prevent further worsening of his right heel pressure ulcer. 5 patient has been eval by vascular surgery and did have debridement of the heel wound culture has been repeated which are currently pending, patient to continue with Rocephin while inpatient Dictation was produced using [employer] dictation software. please excuse any grammatical, word or spelling errors. Time with Patient: Less than 30
[2023-09-09 10:47] LABS: ALT 6 U/L (10-49); AST 21 U/L (14-35); Albumin 3.1 g/dL (3.8-4.9); Albumin/Globulin Ratio 1.48 Ratio (1.60-3.17); Alkaline Phosphatase 63 U/L (41-126); BUN/Creat Ratio 9.94 Ratio (12.00-20.00); Blood Urea Nitrogen 17.9 mg/dL (9.0-27.0); Calcium 8.4 mg/dL (8.7-10.3); Carbon Dioxide 25.6 mmol/L (21.6-31.8); Chloride 103 mmol/L (96-109); Globulin 2.1 g/dL (1.6-3.3); Glucose 80 mg/dL (70-110); Potassium 3.7 mmol/L (3.5-5.5); Sodium 144 mmol/L (135-145); Total Bilirubin 0.3 mg/dL (0.3-1.2); Total Protein 5.2 g/dL (6.2-8.2)
[2023-09-09 11:31] LABS: Glucose,Whole Blood 95 mg/dL (70-110)
--- NOTE | 2023-09-09 13:07 | P.PN ---
Subjective Progress Note Date: 09/09/23 Principal diagnosis: Reason for follow-up is left heel infected pressure ulcer Patient is a 67-year-old male with a past medical history significant for diabetes mellitus hypertension hyperlipidemia hypothyroidism history of diabetic foot infection osteomyelitis and currently has been dealing with the left heel nonhealing wound with secondary cellulitis being readmitted to hospital for unable to take care of himself at home and difficulty getting around. On today's evaluation that is 09/09/2023, Patient is afebrile patient is currently on room air and denies having any shortness of breath, the patient denies any chest pain or any significant cough, the patient complaining of some nausea but no vomiting did not have any abdominal pain and no diarrhea and no pa in to bilateral heel wound. Patient creatinine is 1 point 8 repeat cultures pending Objective - Vital Signs Vital signs: Vital Signs Temp 97.7 F 09/09/23 06:45 Pulse 62 09/09/23 06:45 Resp 16 09/09/23 06:45 BP 141/59 09/09/23 06:45 Pulse Ox 93 L 09/09/23 06:45 FiO2 Intake & Output 09/08/23 09/09/23 09/09/23 18:59 06:59 18:59 Intake Total 300 Output Total 450 300 Balance -150 -300 Weight 90 kg 90 kg Intake: Intake, IV Titration 50 Amount cefTRIAXone 2 gm In 50 Sodium Chloride 0.9% 50 ml @ 100 mls/hr IVPB Q24HR [facility] Rx#:[id number] Oral 250 Output: Urine 450 300 Other: Voiding Method External Catheter External Catheter External Catheter # Bowel Movements 1 - Exam GENERAL DESCRIPTION: An elderly male lying in bed in no distress RESPIRATORY SYSTEM: Unlabored breathing , decreased breath sounds at bases HEART: S1 S2 regular rate and rhythm , ABDOMEN: Soft , no tenderness EXTREMITIES: Bilateral heel wounds are currently dressed - Labs CBC & Chem 7: 09/08/23 03:14 09/09/23 06:25 Labs: Abnormal Lab Results - Last 24 Hours (Table) 09/09/23 Range/Units 06:25 Anion Gap 15.40 H (4.00-12.00) mmol/L Creatinine 1.8 H (0.6-1.5) mg/dL Est GFR (CKD-EPI) 41 L (>=60) BUN/Creatinine Ratio 9.94 L (12.00-20.00) Ratio Calcium 8.4 L (8.7-10.3) mg/dL ALT 6 L (10-49) U/L Total Protein 5.2 L (6.2-8.2) g/dL Albumin 3.1 L (3.8-4.9) g/dL Albumin/Globulin Ratio 1.48 L (1.60-3.17) Ratio Microbiology - Last 24 Hours (Table) 09/07/23 15:00 Gram Stain - Preliminary Foot - Left Assessment and Plan (1) Diabetic foot infection Current Visit: Yes Status: Acute Code(s): E11.628 - TYPE 2 DIABETES MELLITUS WITH OTHER SKIN COMPLICATIONS; L08.9 - LOCAL INFECTION OF THE SKIN AND SUBCUTANEOUS TISSUE, UNSP SNOMED Code(s): 634567801 (2) Penicillin allergy Current Visit: No Status: Acute Code(s): Z88.0 - ALLERGY STATUS TO PENICILLIN SNOMED Code(s): 68868807 (3) Pressure ulcer of left heel, stage 3 Current Visit: No Status: Acute Code(s): L89.623 - PRESSURE ULCER OF LEFT HEEL, STAGE 3 SNOMED Code(s): 23347315725697 Plan: 1patient with a chronic nonhealing wound to the left heel stage III pressure ulcer with secondary cellulitis on one of his admission 08/02/2023 patient culture positive for Proteus mirabilis with the patient has been treated with IV Rocephin patient did have overall improvement to the left heel area however did have an area of skin necrosis that may need debrided further. 2patient also developed a pressure ulcer to the right heel with a big blister which has not yet ruptured and no surrounding cellulitis 3patient also have a wound on the medial aspect of the right foot at the base of the first metatarsal but no significant surrounding redness. 4keep the right heel of the pressure to prevent further worsening of his right heel pressure ulcer. 5 patient has been eval by vascular surgery and did have debridement of the heel wound culture has been repeated which are currently pending, 6-however keeping in mind the patient has overall improvement with Rocephin and has received extensive course we will consider short course of oral Ceftin on discharge discussed with EDUCATION DEPARTMENT REGISTRAR for admitting team as the patient just got authorization to go to the group home Dictation was produced using [employer] dictation software. please excuse any grammatical, word or spelling errors. Time with Patient: Less than 30
--- NOTE | 2023-09-09 13:17 | P.DS ---
Providers Date of admission: 08/26/23 22:22 Attending physician: Bhargavi Redman Consults: 09/04/23 12:53 Consult Physician Routine Consulting Provider: Azeem Liang Consult Reason/Comments: heel ulcers/ IV axb Do you want consulting provider notified?: Yes 09/05/23 11:12 Consult Physician Routine Consulting Provider: Luis Alberto Galindo Consult Reason/Comments: left heel wound , debridemnt and deep cultures Do you want consulting provider notified?: Yes Primary care physician: Gregorio Palomino Hospital Course: Final Diagnosis Generalized weakness complicated by severe hypokalemia Severe hypokalemia secondary to diuretic torsemide resolved. Left heel Stage III diabetic foot ulcer with surrounding cellulitis. and right heel unstageable heel ulcer. Was on oral ceftin and oral flagyl for 2 week cou rse as of 08/25/23 discharge. UTI, acute. Resolved Acute on chronic CHF with systolic dysfunction ejection fraction 30 to 35%. Resolved Uncontrolled hypertension. Improved Mild renal insufficiency prerenal from poor oral intake and continued diuresis. Elevated troponin level likely type II ME CKD stage IV with baseline creatinine 1.8-2 Persistent atrial fibrillation status post ALEXIA and cardioversion on 08/09/2023 Generalized weakness and fatigue and unable to ambulate get out of bed. Coronary artery with history of CABG and stent placement Diabetes type 2 insulin-dependent Hypothyroidism Hyperlipidemia Prior history of smoking DVT prophylaxis patient is already on Eliquis Diabetic peripheral neuropathy Iron deficiency anemia Depression Discharge Disposition Patient is stable for discharge to subacute rehab. Will transition to [facility] today. Would recommend to stay off of losartan at this time secondary to his kidney dysfunction. Additionally patient needs to follow-up with his proposal manager on discharge would recommend to hold torsemide until his renal function improves although he is at his baseline. Patient will continue on oral antibiotics for the next 10 days with Ceftin 500 mg twice a day. Patient has also been started on Celexa as he has been significantly depressed this admission secondary to being unable to return home and needing further rehab and care. Patient to follow-up with Dr. Sierra in 1 week as well as Dr. Liang in 1 week. Patient to see his PCP 1 to 2 days. Repeat blood work in 2 to 3 days. Hospital Course This is a 67-year-old male with medical history of coronary artery disease with prior PCI as well as CABG, cardiomyopathy, hypertension, hyperlipidemia, persistent atrial fibrillation, diabetes mellitus type 2, chronic kidney disease stage III. Patient has had frequent hospitalizations secondary to a diabetic foot ulcer and cellulitis of the left foot. Patient has been on prolonged antibiotics because of this with wound care to the left heel as well as now has an ulcer to the right heel. Patient has been unable to care for himself at home with frequent falls and is out of rehab days. He was brought back to the hospital secondary to his weakness and he was resumed back on his antibiotic therapy as well as local wound care. Patient is been having persistent nausea has not maintained on Zofran and Compazine however has not taken these medications in the last 5 days and states that his nausea has improved. Patient creatinine today is 1.8 which is his baseline. He was brought in to have severe hypokalemia with a 2.7 potassium level on admission. Patient was recommended for a guardian and on Wednesday of this week he did get placed with a legal guardian who are from working with this patient and is now being accepted at [facility]. Patient was reevaluated by infectious disease Dr. Hamilton as well as Dr. Galindo this admission he underwent surgical debridement of the left heel wound and has been recommended to continue with [facility] local wound care to change daily and as needed. Patient will continue on a 10-day course of oral Ceftin on discharge. Most recent blood work reveals a white blood cell count of 6.29, hemoglobin 9.7, sodium of 144, potassium of 3.7, BUN of 17.9, creatinine of 1.8, blood glucose in the 90s. She has been afebrile, heart rate of 62, blood pressure 141/59 and he is 93% on room air. Patient was discharged to subacute rehab. Please see medication reconciliation for a list of current medications. Thank you for allowing us to participate in the care of this patient. The impression and plan of care has been dictated by Zoe Pradhan, Nurse Practitioner as directed. Dr. Elaina MD I have performed a history and physical examination and medical decision making of this patient, discussed the same with the dictator, and agree with the dictators assessment and plan as written, documented as a scribe. Based on total visit time, I have performed more than 50% of this visit. Patient Condition at Discharge: Stable Plan - Discharge Summary Discharge Rx Participant: No New Discharge Prescriptions: New Citalopram Hydrobromide [CeleXA] 10 mg PO DAILY tab HYDROcodone/APAP 5-325MG [Derby 5-325] 1 each PO Q6HR PRN #4 tab PRN Reason: Pain Continue Hydroxychloroquine Sulfate [Plaquenil] 200 mg PO BID Loratadine [Claritin] 10 mg PO DAILY Apixaban [Eliquis] 5 mg PO BID #60 tab Atorvastatin [Lipitor] 10 mg PO HS Ondansetron [Zofran] 4 mg PO TID PRN PRN Reason: Nausea Aspirin 81 mg PO DAILY #30 tab carvediloL [Coreg] 6.25 mg PO BID 30 Days #60 tablet amLODIPine [Norvasc] 10 mg PO DAILY #30 tab Famotidine [Pepcid] 20 mg PO BID 30 Days #60 tablet Ferrous Sulfate [Iron (65 MG Elemental)] 325 mg PO DAILY Levothyroxine Sodium [Synthroid] 100 mcg PO DAILY@0600 Meclizine [Antivert] 12.5 mg PO TID PRN 30 Days #90 tablet PRN Reason: Vertigo Balsalazide Disodium [Colazal] 2,250 mg PO BID Insulin Lispro See Protocol SQ TID-W/MEALS Melatonin 10 mg PO HS hydrALAZINE HCL [Apresoline] 50 mg PO TID #90 tab Amiodarone [Cordarone] 200 mg PO DAILY #30 tab Acetaminophen Tab [Tylenol] 650 mg PO Q6HR PRN tab PRN Reason: Mild Pain Or Fever > 100.5 Dapagliflozin Propanediol [Farxiga] 10 mg PO DAILY #30 tab Isosorbide Mononitrate ER [Imdur] 30 mg PO DAILY #30 tab cefUROXime axetiL [Ceftin] 500 mg PO BID 10 Days #20 tab Discontinued Losartan [Cozaar] 50 mg PO BID #60 tab Insulin Detemir (Levemir) [Levemir] 8 unit SQ HS #10 gm metroNIDAZOLE [Flagyl] 500 mg PO TID #42 tab Torsemide [Demadex] 10 mg PO DAILY 30 Days #15 tab Gabapentin [Neurontin] 100 mg PO Q8H HYDROcodone/APAP 5-325MG [Derby 5-325] 1 tab PO HS PRN 5 Days #5 tab PRN Reason: Pain Discharge Medication List Ferrous Sulfate [Iron (65 MG Elemental)] 325 mg PO DAILY 03/04/21 [History] Hydroxychloroquine Sulfate [Plaquenil] 200 mg PO BID 03/04/21 [History] Levothyroxine Sodium [Synthroid] 100 mcg PO DAILY@0600 03/04/21 [History] Meclizine [Antivert] 12.5 mg PO TID PRN 30 Days #90 tablet 03/13/21 [Rx] Balsalazide Disodium [Colazal] 2,250 mg PO BID 03/17/23 [History] Loratadine [Claritin] 10 mg PO DAILY 03/17/23 [History] Apixaban [Eliquis] 5 mg PO BID #60 tab 06/11/23 [Rx] Atorvastatin [Lipitor] 10 mg PO HS 08/01/23 [History] Insulin Lispro See Protocol SQ TID-W/MEALS 08/01/23 [History] Melatonin 10 mg PO HS 08/01/23 [History] Ondansetron [Zofran] 4 mg PO TID PRN 08/01/23 [History] Acetaminophen Tab [Tylenol] 650 mg PO Q6HR PRN tab 08/11/23 [Rx] Amiodarone [Cordarone] 200 mg PO DAILY #30 tab 08/11/23 [Rx] Aspirin 81 mg PO DAILY #30 tab 08/11/23 [Rx] hydrALAZINE HCL [Apresoline] 50 mg PO TID #90 tab 08/11/23 [Rx] Dapagliflozin Propanediol [Farxiga] 10 mg PO DAILY #30 tab 08/25/23 [Rx] Famotidine [Pepcid] 20 mg PO BID 30 Days #60 tablet 08/25/23 [Rx] Isosorbide Mononitrate ER [Imdur] 30 mg PO DAILY #30 tab 08/25/23 [Rx] amLODIPine [Norvasc] 10 mg PO DAILY #30 tab 08/25/23 [Rx] carvediloL [Coreg] 6.25 mg PO BID 30 Days #60 tablet 08/25/23 [Rx] Citalopram Hydrobromide [CeleXA] 10 mg PO DAILY tab 09/09/23 [Rx] HYDROcodone/APAP 5-325MG [Derby 5-325] 1 each PO Q6HR PRN #4 tab 09/09/23 [Rx] cefUROXime axetiL [Ceftin] 500 mg PO BID 10 Days #20 tab 09/09/23 [Rx] Follow up Appointment(s)/Referral(s): Gregorio Palomino MD [Primary Care Provider] - 1-2 days Azeem Liang MD [STAFF PHYSICIAN] - 1 Week Ambulatory/Diagnostic Orders: Basic Metabolic Panel [LAB.AMB] Time Frame: 3 Days, Location: None Selected Complete Blood Count w/diff [LAB.AMB] Location: None Selected Activity/Diet/Wound Care/Special Instructions: Continue local wound care with daily dressing change with Medihoney gel and Curlex to the left heel wound. Discharge Disposition: TRANSFER TO SNF/ECF
[2023-09-09 13:28] VITALS: PULSE 61; RESP 18
[2023-09-09 13:34] VITALS: BP 151/72; TEMP 97.6
== END 2023-09-09 16:49 | DRG 264 ==
LOC: EC 18:27 → EEVIPCON 22:22 → 3SCARD 22:22 → 4SSUR 09-04 12:58
PROVIDERS: ADMIT Internal Medicine; ATTEND Internal Medicine
PROC: 0JBR0ZZ Excision of Left Foot Subcutaneous Tissue and Fascia, Open Approach (ICD-10-PCS; principal; 2023-08-26)
DX: I13.0 Hypertensive heart and chronic kidney disease with heart failure and stage 1 through stage 4 chronic kidney disease, or unspecified chronic kidney disease (principal); L89.623 Pressure ulcer of left heel, stage 3; I21.A1 Myocardial infarction type 2; I48.19 Other persistent atrial fibrillation; N18.4 Chronic kidney disease, stage 4 (severe); I50.22 Chronic systolic (congestive) heart failure; L03.116 Cellulitis of left lower limb; R53.1 Weakness; T50.2X5A Adverse effect of carbonic-anhydrase inhibitors, benzothiadiazides and other diuretics, initial encounter; E87.6 Hypokalemia; E11.621 Type 2 diabetes mellitus with foot ulcer; X58.XXXA Exposure to other specified factors, initial encounter; E11.22 Type 2 diabetes mellitus with diabetic chronic kidney disease; I25.2 Old myocardial infarction; B95.2 Enterococcus as the cause of diseases classified elsewhere; B96.89 Other specified bacterial agents as the cause of diseases classified elsewhere; B96.20 Unspecified Escherichia coli [E. coli] as the cause of diseases classified elsewhere; B96.3 Hemophilus influenzae [H. influenzae] as the cause of diseases classified elsewhere; R79.89 Other specified abnormal findings of blood chemistry; R53.83 Other fatigue; E11.42 Type 2 diabetes mellitus with diabetic polyneuropathy; Z95.1 Presence of aortocoronary bypass graft; Z95.5 Presence of coronary angioplasty implant and graft; E03.9 Hypothyroidism, unspecified; E78.5 Hyperlipidemia, unspecified; Z79.890 Hormone replacement therapy; L89.610 Pressure ulcer of right heel, unstageable; Z88.0 Allergy status to penicillin; E11.628 Type 2 diabetes mellitus with other skin complications; B95.7 Other staphylococcus as the cause of diseases classified elsewhere; B37.2 Candidiasis of skin and nail; D50.9 Iron deficiency anemia, unspecified; E11.69 Type 2 diabetes mellitus with other specified complication; F32.A Depression, unspecified; I25.10 Atherosclerotic heart disease of native coronary artery without angina pectoris; I42.9 Cardiomyopathy, unspecified; Z79.01 Long term (current) use of anticoagulants; Z79.2 Long term (current) use of antibiotics; Z79.4 Long term (current) use of insulin; Z79.82 Long term (current) use of aspirin; Z79.84 Long term (current) use of oral hypoglycemic drugs; Z79.899 Other long term (current) drug therapy; Z87.891 Personal history of nicotine dependence; Z98.1 Arthrodesis status; R09.02 Hypoxemia; B96.4 Proteus (mirabilis) (morganii) as the cause of diseases classified elsewhere; R11.0 Nausea
CPT/HCPCS: 36415; 71046; 74019; 80048; 80053; 81001; 83605; 83735; 84132; 84484; 85025; 85027; 86140; 87070; 87075; 87077; 87186; 87205; 87324; 87636; 96365; 96372; 99285